=== PATIENT | male | born 1935 | race Caucasian/White ===

== ENCOUNTER 2017-07-02 14:15 | Outpatient (RCR) | payer SELFPAY | END 2017-07-02 23:59 | LOC: PR 14:15 | PROVIDERS: Family Provider Family Medicine; PCP Family Medicine; Visit Provider Family Medicine | DX: Z00.00 Encounter for general adult medical examination without abnormal findings (principal) ==

== ENCOUNTER 2017-07-21 14:15 | Outpatient (RCR) | payer MEDICARE, SELFPAY | END 2017-07-30 23:59 | LOC: PR 14:15 | PROVIDERS: Family Provider Family Medicine; PCP Family Medicine; Visit Provider Family Medicine | DX: Z00.00 Encounter for general adult medical examination without abnormal findings (principal) ==

== ENCOUNTER 2017-07-23 07:10 | Day surgery (SDC) | payer MEDICARE, OTHER, SELFPAY ==
[2017-07-23] VITALS (7 sets, daily range): BP systolic 82–126; BP diastolic 52–65; PULSE 74–100; RESP 16; TEMP 36.4–36.6; O2SAT 95–100; BMI 32.3
--- NOTE | 2017-07-23 08:30 | COLBX_PTH ---
PATIENT: JOSE CHAWLA LOC: EN U#:[id number] AGE/SX: 81/M ROOM: RE07/23/[address]: Dr. Sharath Hay MD : [id number] BED: DIS: 07/23/2017 SPEC #: [id number] RECD: 07/23/17 12:47 STATUS: SHO SHANIQUE #: [id number] LORIN: 07/23/17 08:[address]: Sharath Hay DEPT: SURGICAL PATHOLOGY RECD BY: Diego Caraballo ENTERED: 07/23/17 12:56 SP TYPE: COLON BX OTHR DR: Dr. Kevin Boogie MD Tissues: Ascending colon Procedures: Surgery Specimen Level IV HEADER OPERATION: Colonoscopy with biopsy PRE-OP DIAGNOSIS: History of colon polyps TISSUE SUBMITTED: Ascending colon polyp biopsy MICROSCOPIC DIAGNOSIS Ascending colon polyp, biopsy: Tubular adenoma. SJ:donaldo 07/24/17 MICROSCOPIC DESCRIPTION Slides are reviewed. GROSS DESCRIPTION Received in fixative is one container labeled with the patient's name and designated ascending colon biopsy. The specimen consists of one irregular fragment of light baker soft tissue that measures 0.6 x 0.2 x 0.1 cm. The specimen is totally submitted in one cassette. / AM:donaldo 07/23/17 TC:1 CPT: 38108
--- NOTE | 2017-07-23 08:38 | PCM.OPRPT ---
Problem List (1) Personal history of colonic polyps Status: Acute Report of Operation Date of Procedure: 07/23/17 Pre-Operative Diagnosis: Z 86.010 personal history of colonic polyps Post-Operative Diagnosis: Same Surgery/Procedure Performed:: 10532 colonoscopy with biopsy Type of Anesthesia:: MAC Anesthesiologist: Brendan Aguirre Description of Procedure: Patient was brought into the endoscopy suite placed in the left lateral decubitus position he was given graded anesthesia. Scope was inserted in the rectum and directed through the sigmoid colon, descending colon, transverse colon, ascending colon, to the cecum without difficulty. Operative findings: 1. Cecum: Normal appearance no mass lesions normal ileocecal valve. 2. Ascending colon: Small hyperplastic was identified it was ablated completely with a biopsy forceps rest of the ascending colon was normal. 3. Transverse colon: Normal appearance no mass lesions. 4. Descending colon: Normal appearance no mass lesions. 5. 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 Rectum: Normal appearance no mass lesions retroflexion showed internal hemorrhoids. The scope was withdrawn digital rectal exam was performed showing no masses within the anus and a smooth prostate with no nodules. Patient will need to have another colonoscopy in 3 years - Admit VTE Documentation VTE Present on Admission: No VTE Mechan Device Prophylaxis: None VTE Pharm Prophylaxis ordered?: No Reason prophylaxis not ordered:: Treatment Not Indicated
== END 2017-07-23 09:36 | disposition home or self-care (01) ==
LOC: EN 07:11 → AC 07:12
PROVIDERS: Family Provider Family Medicine; PCP Family Medicine; Visit Provider Surgery
PROC: 0DJD8ZZ Inspection of Lower Intestinal Tract, Via Natural or Artificial Opening Endoscopic (ICD-10-PCS; CPT 45378; principal; 2017-07-23 08:25)
DX: D12.2 Benign neoplasm of ascending colon (principal); D64.9 Anemia, unspecified; J44.9 Chronic obstructive pulmonary disease, unspecified; I10 Essential (primary) hypertension; E78.00 Pure hypercholesterolemia, unspecified; N40.0 Benign prostatic hyperplasia without lower urinary tract symptoms; K21.9 Gastro-esophageal reflux disease without esophagitis; E66.9 Obesity, unspecified; Z79.899 Other long term (current) drug therapy; Z87.891 Personal history of nicotine dependence; Z86.010 Personal history of colon polyps
CPT/HCPCS: 45380; 88305; J7120

== ENCOUNTER 2017-07-31 06:29 | Outpatient (RCR) | payer SELFPAY | END 2017-08-30 23:59 | LOC: PR 06:29 | PROVIDERS: Family Provider Family Medicine; PCP Family Medicine; Visit Provider Family Medicine | DX: Z00.00 Encounter for general adult medical examination without abnormal findings (principal) ==

== ENCOUNTER → 2017-09-23 09:14 | Outpatient (CLI) | payer MEDICARE, OTHER, SELFPAY ==
[2017-09-23 10:31] LABS: Absolute Neutrophil Count 4.2 X10^3/uL (2.0-7.7); Basophil# 0.02 X10^3/uL; Basophil% 0.3 % (0-1); Eosinophil# 0.37 X10^3/uL; Eosinophils% 5.5 % (0-5); Hematocrit 38.8 % (40-54); Hemoglobin 12.6 g/dl (13.0-16.5); Lymphocyte % 22.4 % (19-41); Mean Corp Hgb Conc 32.5 g/gl (32-36); Mean Corpuscular Hgb 29.7 pg (27.0-32.0); Mean Corpuscular Volume 91.5 fL (80-94); Mean Platelet Vol. 12.2 fl (6.2-12.0); Monocyte# 0.65 X10^3/uL; Monocyte% 9.7 % (0-10); Neutrophil # 4.16 X10^3/uL (2.7-7.7); Platelet Count 149 K/mm3 (150-450); RBC Distribution Width CV 13.2 % (11.6-14.6); RBC Distribution Width SD 43.6 fl (35.1-43.9); Red Blood Count 4.24 M/mm3 (4.6-6.2); White Blood Count 6.7 K/mm3 (4.4-11.0)
[2017-09-23 10:44] LABS: POSITIVE COUNT NO; POSITIVE DIFFERENTIAL NO; POSITIVE MORPHOLOGY NO
[2017-09-23 11:17] LABS: AST(SGOT) 19 U/L (15-37); Alanine Aminotransfer ALT/SGPT 15 U/L (16-61); Albumin, Serum 3.3 g/dL (3.2-5.0); Alkaline Phosphatase 125 U/L (45-117); Anion Gap 6 (5-15); BUN 15 mg/dL (7-18); BUN/Creat Ratio 17.8 RATIO (10-20); Calcium,Total 9.2 mg/dL (8.5-10.1); Chloride 108 mmol/L (98-107); Cholesterol 82 mg/dL (200); Creatinine, Serum 0.84 mg/dL (0.70-1.30); EST Glomerular Filtration Rate 93 mL/min (>60); Est Glom Filt Rate - Afr Amer 112 mL/min (>60); Globulin 3.3 g/dL (2.2-4.2); Glucose 82 mg/dL (74-106); High Density Lipoprotein 29 mg/dL; Potassium 3.9 mmol/L (3.5-5.1); Protein, Total 6.6 g/dL (6.4-8.2); Sodium Level 141 mmol/L (136-145); Triglycerides 114 mg/dL; Very Low Density Lipoprotein 23 mg/dL (5-40)
== END ==
PROVIDERS: Family Provider Family Medicine; PCP Family Medicine; Visit Provider Family Medicine
DX: J44.9 Chronic obstructive pulmonary disease, unspecified (principal); E78.00 Pure hypercholesterolemia, unspecified; I10 Essential (primary) hypertension
CPT/HCPCS: 36415; 80053; 80061; 85025

== ENCOUNTER 2017-12-01 06:40 | Outpatient (RCR) | payer MEDICARE, OTHER, SELFPAY | END 2017-12-30 23:59 | LOC: PR 06:40 | PROVIDERS: Family Provider Family Medicine; PCP Family Medicine; Visit Provider Family Medicine | DX: Z00.00 Encounter for general adult medical examination without abnormal findings (principal) ==

== ENCOUNTER 2017-12-31 06:33 | Outpatient (RCR) | payer SELFPAY | END 2018-01-30 23:59 | LOC: PR 06:33 | PROVIDERS: Family Provider Family Medicine; PCP Family Medicine; Visit Provider Family Medicine | DX: Z00.00 Encounter for general adult medical examination without abnormal findings (principal) ==

== ENCOUNTER → 2018-01-29 09:35 | Outpatient (CLI) | payer MEDICARE, OTHER, SELFPAY ==
--- OUTSIDE RECORDS SUMMARY | 2018-01-14 09:46 | XMS RPT_ITS ---
:1935 External Reference #:[id number] Author Organization OHIP Support Name Relationship Address Phone R Unavailable Unavailable Unavailable SCHOOLCRAFT, KRISTOPHER Unavailable [address] + [place] [address] R Unavailable Unavailable Unavailable SCHOOLCRAFT, KRISTOPHER Unavailable [address] + [place] [address] R Unavailable Unavailable Unavailable SCHOOLCRAFT, KRISTOPHER Unavailable [address] + [place] [address] R Unavailable Unavailable Unavailable SCHOOLCRAFT, KRISTOPHER Unavailable [address] + [place] [address] R Unavailable Unavailable Unavailable SCHOOLCRAFT, KRISTOPHER Unavailable [address] + [place] [address] R Unavailable Unavailable Unavailable SCHOOLCRAFT, KRISTOPHER Unavailable [address] + [place] [address] R Unavailable Unavailable Unavailable SCHOOLCRAFT, KRISTOPHER Unavailable [address] + [place] [address] R Unavailable Unavailable Unavailable SCHOOLCRAFT, KRISTOPHER Unavailable [address] + [place] [address] R Unavailable Unavailable Unavailable SCHOOLCRAFT, KRISTOPHER Unavailable [phone] [place] [address] R Unavailable Unavailable Unavailable SCHOOLCRAFT, KRISTOPHER Unavailable [address] + [place] [address] R Unavailable Unavailable Unavailable SCHOOLCRAFT, KRISTOPHER Unavailable [address] + [place] [address] R Unavailable Unavailable Unavailable SCHOOLCRAFT, KRISTOPHER Unavailable [phone] [place] [address] R Unavailable Unavailable Unavailable SCHOOLCRAFT, KRISTOPHER Unavailable [phone] [place] [address] Care Team Providers Name Role Phone Boogie, Kevin Attending Unavailable Boogie, Kevin Primary Care Unavailable Boogie, Kevin Attending Unavailable Boogie, Kevin Primary Care Unavailable Boogie, Kevin Attending Unavailable Boogie, Kevin Primary Care Unavailable Boogie, Kevin Attending Unavailable Boogie, Kevin Primary Care Unavailable Boogie, Kevin Attending Unavailable Boogie, Kevin Primary Care Unavailable Brewster, Sharath Attending Unavailable Boogie, Kevin Referring Unavailable Boogie, Kevin Primary Care Unavailable Brewster, Sharath Attending Unavailable Brewster, Sharath Referring Unavailable Boogie, Kevin Primary Care Unavailable Brewster, Sharath Attending Unavailable Bharti, Sharath Referring Unavailable Boogie, Kevin Primary Care Unavailable Bharti, Sharath Consulting Unavailable Boogie, Kevin Attending Unavailable Boogie, Kevin Primary Care Unavailable Boogie, Kevin Attending Unavailable Boogie, Kevin Primary Care Unavailable Boogie, Kevin Attending Unavailable Boogie, Kevin Primary Care Unavailable Boogie, Kevin Attending Unavailable Boogie, Kevin Primary Care Unavailable Boogie, Kevin Attending Unavailable Boogie, Kevin Primary Care Unavailable PROBLEMS PROBLEMS DATE TYPE CONDITION / CODE ATTENDING STATUS SOURCE 12/31/2017 Unknown Z00.00 - Encounter Kevin Boogie Active [place] for general adult [facility] examination Repository without abnormal findings / Z00.00(ICD-10) 11/14/2017 Unknown J44.9 - Chronic Kevin Boogie Active [place] obstructive [facility] pulmonary disease, Hospital unspecified / Repository J44.9(ICD-10) 09/18/2017 Unknown Z86.010 - Personal Sharath Hay Active [place] history of colonic Community polyps / Hospital Z86.010(ICD-10) Repository 03/27/2017 Unknown ESSENTIAL Kevin Boogie Active [place] (PRIMARY) Community HYPERTENSION / Hospital I10(ICD-10) Repository 03/27/2017 Unknown PURE William Boogieic Active [place] HYPERCHOLESTEROLEM Community [place], UNSPECIFIED / Hospital E78.00(ICD-10) Repository 03/27/2017 Unknown ANEMIA, William Boogieic Active [place] UNSPECIFIED / Community D64.9(ICD-10) Hospital Repository PROCEDURES PROCEDURES No Procedure Records FoundRESULTS RESULTS CBC W/DIFF, AUTOMATED Collected: 09/23/2017 Status: F Source: [place] 9:18 AM [facility] REPOSITORY Order Comment: Order Date: 09/22/17Order Info: [id number] - CBCD TYPE CODE TESTS RESULT OUT OF RANGE REFERENCE UNITS LAB L100.1000 Normal 4.4-11.0 K/mm3 WBC 6.7 LAB L100.1200 Low 4.6-6.2 M/mm3 RBC 4.24 LAB L100.1300 Low 13.0-16.5 g/dl HGB 12.6 LAB L100.1400 Low 40-54 % HCT 38.8 LAB L100.1500 Normal 80-94 fL MCV 91.5 LAB L100.1600 Normal 27.0-32.0 pg MCH 29.7 LAB L100.1700 Normal 32-36 g/gl MCHC 32.5 LAB L100.1810 Normal 11.6-14.6 % RDW 13.2 CV LAB L100.1820 Normal 35.1-43.9 fl RDW 43.6 SD LAB L100.1900 Low 150-450 K/mm3 PLT 149 LAB L100.2000 High 6.2-12.0 fl MPV 12.2 LAB L100.2100 Normal 47-70 % NEUT% 62.0 LAB L100.2200 Normal 19-41 % LY% 22.4 LAB L100.2300 Normal 0-10 % MONO% 9.7 LAB L100.2400 High 0-5 % EO% 5.5 LAB L100.2500 Normal 0-1 % BASO% 0.3 LAB L100.2550 Normal 0.0-0.9 % IM 0.100 GRAN % Result Comment: IG% - Immature Granulocytes (promyelocytes, myelocytes andmetamyelocytes) > 1% indicates that a LEFT SHIFT is Present. LAB L100.2620 Normal 2.0-7.7 X10 3/uL Absolute Neut 4.2 LAB L100.2720 Normal 0.83-4.51 X10 3/ul Absolute Lymph 1.50 Performed By: #### L100.0100, L500.4050, L500.4100 #### [facility] [address] [place], [address] COMPREHENSIVE METABOLIC Collected: 09/23/2017 Status: F Source: [place] 9:[address] [facility] REPOSITORY Order Comment: Order Date: 09/22/17Order Info: [id number] - CMPOrder Info: [id number] - LIPID TYPE CODE TESTS RESULT OUT OF RANGE REFERENCE UNITS LAB L501.0100 Normal 74-106 mg/dL GLU 82 Result Comment: Please note revised GLUCOSE reference range uiqucjeon88/02/2018. LAB L501.1000 Normal 7-18 mg/dL BUN 15 LAB L501.1100 Normal 0.70-1.30 mg/dL CREAT,SERUM 0.84 Result Comment: The validity of the calculated GFR AND GFRAA in patients over70 years has not been determined. Clinical correlation isessential. LAB L501.1110 Normal >60 mL/min EST GFR 93 Result Comment: Non- GFR Calc LAB L501.1115 Normal >60 mL/min EST GFR - 112 AA Result Comment: GFR Calc LAB L501.1300 Normal 10-20 RATIO BUN/CRE 17.8 LAB L501.1500 Normal 6.4-8.2 g/dL T PROT 6.6 LAB L501.1800 Normal 3.2-5.0 g/dL ALB 3.3 LAB L501.1950 Normal 2.2-4.2 g/dL GLOB 3.3 LAB L501.2000 Normal 0.9-2.4 RATIO A/G 1.0 LAB L501.2200 Normal 8.5-10.1 mg/dL CA 9.2 LAB L501.4100 Normal 15-37 U/L AST 19 LAB L501.4305 High 45-117 U/L ALK P 125 LAB L501.4405 Low 16-61 U/L ALT 15 LAB L501.4600 High 0.20-1.00 mg/dL T BILI 1.30 LAB L501.5300 Normal 136-145 mmol/L NA 141 LAB L501.5600 Normal 3.5-5.1 mmol/L K 3.9 LAB L501.5900 High 98-107 mmol/L CL 108 LAB L501.6100 Normal 21.0-32.0 mmol/L CO2 27.0 LAB L501.6200 Normal 5-15 GAP 6 Performed By: #### L100.0100, L500.4050, L500.4100 #### [facility] [address] [place], [address] LIPID PROFILE Collected: 09/23/2017 Status: F Source: [place] 9:[address] [facility] REPOSITORY Order Comment: Order Date: 09/22/17Order Info: [id number] - CMPOrder Info: [id number] - LIPID TYPE CODE TESTS RESULT OUT OF RANGE REFERENCE UNITS LAB L501.4900 Normal 200 mg/dL CHOL 82 Result Comment: <200 mg /dL Desirable 200-240 mg/dL Borderline >240 mg/dL High Risk LAB L501.5000 Normal mg/dL TRIG 114 Result Comment: The drugs N-Acetylcysteine and Metamizole may falselydepress this assay.Serum Triglycerides Reference Interval Normal <150 mg/dL Borderline high 150 - 199 mg/dL High 200 - 499 mg/dL Very High > or = 500 mg/dL LAB L501.6400 Low mg/dL HDL 29 Result Comment: The drugs N-Acetylcysteine and Metamizole may falselydepress this assay. Reference Range HDL <40 mg/dL Low HDL Cholesterol HDL >or= 60 mg/dL High HDL Cholesterol LAB L501.6500 Normal 0-130 mg/dL LDL 30 LAB L501.6600 Normal 5-40 mg/dL VLDL 23 Performed By: #### L100.0100, L500.4050, L500.4100 #### [facility] [address] [facility] [place], [address] OPERATIVE REPORT Observed: 07/23/2017 Status: F Source: [place] 8:[address] [facility] REPOSITORY [facility] [address] [place], [place] [address]Eaenwqhmz Cyufyg52/21/18 0838MR#: [id number] Acct: [id number]: JOSE CHAWLA Rep #: [id number]: 1935 81 From: Sharath Hay MDPCP: Kevin Boogie MD Status: [facility] [place] YLocation: [id number] List(1) Personal history of colonic polypsStatus: AcuteReport of OperationDate of Procedure: 07/23/17Pre-Operative Diagnosis: Z 86.010 personal history of colonic polypsPost-Operative Diagnosis: SameSurgery/Procedure Performed:: 32586 colonoscopy with biopsyType of Anesthesia:: MACAnesthesiologist: Harpreet Aguirreion of Procedure:Patient was brought into the endoscopy suite placed in the left lateral decubitus position hewas given graded anesthesia. Scope was inserted in the rectum and directed through the sigmoidcolon, descending colon, transverse colon, ascending colon, to the cecum without difficulty.Operative findings:1. Cecum: Normal appearance no mass lesions normal ileocecal valve.2. Ascending colon: Small hyperplastic was identified it was ablated completely with a biopsyforceps rest of the ascending colon was normal.3. Transverse colon: Normal appearance no mass lesions.4. Descending colon: Normal appearance no mass lesions.5. Sigmoid colon: Normal appearance no mass lesions scattered diverticular disease wasidentified6. Rectum: Normal appearance no mass lesions retroflexion showed internal hemorrhoids. Thescope was withdrawn digital rectal exam was performed showing no masses within the anus and asmooth prostate with no nodules.Patient will need to have another colonoscopy in 3 years- Admit VTE DocumentationVTE Present on Admission: NoVTE Mechan Device Prophylaxis: NoneVTE Pharm Prophylaxis ordered?: NoReason prophylaxis not ordered:: Treatment Not Bqoyjfnyc70/21/18 0841 <Electronically signed by Sharath Hay MD>Date Sharath Hay MDCC: Sharath Hay MD; Kevin Boogie MD Signed COLON BIOPSY (CHOOSE Observed: 07/23/2017 Status: F Source: [facility]) 8:[address] [facility] REPOSITORY Patient: JOSE CHAWLA : 1935 (82/M) Acct Num: [id number] Phys: Sharath Hay MD Unit Num: [id number] Loc: EN Specimen: [id number] Received: 07/23/17 - 1247 Spec Type: COLON BX TISSUES TISSUES: Ascending colon GROSS DESCRIPTION Received in fixative is one container labeled with the patient's name and designated ascending colon biopsy. The specimen consists of one irregular fragment of light baker soft tissue that measures 0.6 x 0.2 x 0.1 cm. The specimen is totally submitted in one cassette. / AM:rg 07/23/17 TC:1 CPT: 94340 HEADER OPERATION: Colonoscopy with biopsy PRE-OP DIAGNOSIS: History of colon polyps TISSUE SUBMITTED: Ascending colon polyp biopsy MICROSCOPIC DESCRIPTION Slides are reviewed. MICROSCOPIC DIAGNOSIS Ascending colon polyp, biopsy: Tubular adenoma. SJ:donaldo 07/24/17 Signed Gonsalo Dumont 07/24/17 <signature on file> Performed By: #### PCOLBX ####[facility] [address] [place], [place], [address] SURGERY VISIT REPORT Observed: 07/15/2017 Status: F Source: [place] 9:[address] [facility] REPOSITORY [place] [facility] [address] [place] [address] [place] [address] [id number] VISITDate of Service: 07/14/17MR#: [id number] Acct: [id number]: JOSE CHAWLA Rep #: [id number]: 1935 Provider: Sharath Hay MDAge/Sex: 81/M Location: [facility] [place].WSAStatus: SignedIntakeVital Signs07/14/17 Height 6 ft 1 in07/14/17 Weight: 255 lbIntakeVisit Reasons: NEEDS C-SCOPEInterpreter Required: NoIs patient in pain? : NoAllergiesadhesive tape Allergy (Intermediate, Verified 07/14/17 15:19)dermatitisMedicationsatorvastatin 80 mg tablet 80 mg PO QDAY 07/14/17 [ History Confirmed 07/14/17]carvedilol 25 mg tablet 25 mg PO BID 07/14/17 [History Confirmed 07/14/17]clopidogrel 75 mg tablet 150 mg PO QDAY 07/14/17 [History Confirmed 07/14/17]coenzyme Q10 100 mg capsule 100 mg PO QDAY 07/14/17 [History Confirmed 07/14/17]lisinopril 10 mg tablet 10 mg PO QDAY 07/14/17 [History Confirmed 07/14/17]omega-3s 300 dc-izs-myj-other mjiuh6q-axtd oil 1,000 mg capsule cap PO .daily ea 07/14/17[History Confirmed 07/14/17]ranitidine 300 mg capsule 300 mg PO QHS 07/14/17 [History Confirmed 07/14/17]triamcinolone acetonide 0.1 % topical cream 1 applic TOPICAL QDAY 07/14/17 [History Wwpsvwnys49/12/18]PFSHMedical History Abnormality of gait (Acute) Acid reflux (Acute)Allergic rhinitis (Acute)Anemia (Acute)Blood clots in stool ( Acute)COPD (chronic obstructive pulmonary disease) (Acute)CVD (cardiovascular disease) (Acute)Colon cancer (Acute)Hypercholesterolemia (Acute)Obesity (Acute)Prostatic hypertrophy (Acute)Hypertension (Chronic)Surgical History History of colectomy (Acute)Social HistorySmoking Status: Former smoker quit date: 06/04/96 pack-years: 40alcohol intake: neversubstance use type: does not useHPIHPIHPI: JOSE CHAWLA, is a 81 M who presents to the office today for colonoscopy. Patienthad his last colonoscopy on 05/05/2013. At that time he was noted to have a tubular adenoma ofhis transverse colon as well as some hyperplastic polyps in the cecum. He has had no furthercolonoscopies since then at that same time he also had an upper scope which was H. pylorinegative. It did show some erythema and the GE junction hiatal hernia normal mucosa found inthe cardia erythematous mucosa in the prepyloric region of the stomach. Patient has had noproblems with his bowel or bladder. He is not complaining ofROSGeneralGeneral: Yes colon cancer;no weight change, appetite, fatigue, breast cancer or weaknessHEENTHEENT: Yes eye surgery;no difficulty swallowing, eye injury, swollen glands or hoarsenessEndoEndocrine: No thyroid disease, diabetes mellitus, thyroid cancer, Hair loss, heat intoleranceor cold intoleranceSkinSkin: No rash or changing molesBreastBreast: No left breast lump, right breast lump, nipple discharge, breast pain, abnormalmammogram, abnormal US or breast enlargementMuscMusculoskeletal: No back problems, arthritis, rheumatoid arthritis, gout or joint painCardioCardiovascular: Yes high blood pressure;no murmur, pacemaker, heart disease, atrial fibrillation, heart attack, heart stent,palpitations, shortness of breat with exertion or chest painPsychPsychiatric: No depression, anxiety or hearing voicesRespRespiratory: No shortness of breath, No sleep apnea, No cough, Yes COPD, No asthma, Noemphysema, No wheezingGastroGastrointestinal: No abdominal pain, No nausea or vomiting, No diarrhea, No constipation, Noblood in stool, Yes acid reflux, No hemorrhoids, No ulcers, No gallbladder problem, Noblack,tarry stoolsHemaHematologic: Yes blood thinners, No blood disorders, No bleeding, No anemia, No blood clotsNeuroNeurologic: No system reviewed and no additional complaints, except as docu, No as per HPI, Noabnormal walking, No abnormal hearing, No abnormal movements, No abnormal speech, No behavioralchanges, No burning sensations, No confusion, No seizure-like activity, No unsteadiness, Nodizziness, No localized weakness, No frequent falls, No headache(s), No lack of coordination,No loss of vision, No memory loss, No numbness, No other visual disturbances, No radiatingpain, No restless legs, No sensory deficit, No fainting, No tingling, No tremor(s), Noweakness, No otherExamConstGeneral: well developed, no acute distress, well hydratedOrientation: oriented to person, oriented to place, oriented to timeHENMTHead: normocephalic , atraumaticEars: external ears normalMouth: moist mucous membranesEyesSclera: sclerae normalPupils: normal by confrontationNeckNeck: no lymphadenopathy notedNeck mass: NoThyroid: symmetrical, thyroid normalChestChest palpation AND inspection: normal inspection of the chestBreast Palpation: No nipple dischargeRespEffort AND Inspection: normal respiratory effortAuscultation: clear to auscultation bilaterallyPercussion: percussion normalCardioRate: regular rateRhythm: regular rhythmHeart Sounds: no murmursGIPalpation: soft, no masses, no hepatosplenomegaly, nontenderRectal Exam: otherOther: Rectal exam deferred.ExtremGeneral: no clubbing, cyanosis or edema, normal to inspectionAssessment AND PlanProblems1. History of colon polyps Z86.010PlanI have discussed the above with the patient.I have offered the patient colonoscopy for evaluation.I have explained the risks/benefits of the procedure and described the procedure. I havediscussed the risks with the patient, including but not limited to: infection, bleeding,perforation of the GI tract requiring emergency surgery, inability to complete the procedure,injury to any internal organs, complications of anesthesia, etc. - the patient understands andagrees to proceed.I have answered all the patient's questions to the patient 's satisfaction and the patient hasno further questions.The patient has been given instructions for the colon cleansing preparation.CodingLevel of Care CodeOff vis,new,level 3DiagnosesHistory of colon polyps Z86.5483207/15/17 0925 <Electronically signed by Sharath Hay MD>Date Sharath Hay MDCosigner Signature: Date (if applicable)CC: Kevin Boogie MD CBC W/DIFF, AUTOMATED Collected: 03/24/2017 Status: F Source: [place] 8:[address] [facility] REPOSITORY Order Comment: Order Date: 02/06/17Order Info: [id number] - CBCD TYPE CODE TESTS RESULT OUT OF RANGE REFERENCE UNITS LAB L100.1000 Normal 4.4-11.0 K/mm3 WBC 6.9 LAB L100.1200 Low 4.6-6.2 M/mm3 RBC 4.21 LAB L100.1300 Low 13.0-16.5 g/dl HGB 12.8 LAB L100.1400 Low 40-54 % HCT 38.7 LAB L100.1500 Normal 80-94 fL MCV 91.9 LAB L100.1600 Normal 27.0-32.0 pg MCH 30.4 LAB L100.1700 Normal 32-36 g/gl MCHC 33.1 LAB L100.1810 Normal 11.6-14.6 % RDW 13.2 CV LAB L100.1820 Normal 35.1-43.9 fl RDW 43.3 SD LAB L100.1900 Low 150-450 K/mm3 PLT 134 LAB L100.2000 High 6.2-12.0 fl MPV 12.8 LAB L100.2100 Normal 47-70 % NEUT% 60.9 LAB L100.2200 Normal 19-41 % LY% 22.8 LAB L100.2300 Normal 0-10 % MONO% 9.2 LAB L100.2400 High 0-5 % EO% 6.3 LAB L100.2500 Normal 0-1 % BASO% 0.7 LAB L100.2550 Normal 0.0-0.9 % IM 0.100 GRAN % Result Comment: IG% - Immature Granulocytes (promyelocytes, myelocytes andmetamyelocytes) > 1% indicates that a LEFT SHIFT is Present. LAB L100.2620 Normal 2.0-7.7 X10 3/uL Absolute Neut 4.2 LAB L100.2720 Normal 0.83-4.51 X10 3/ul Absolute Lymph 1.57 Performed By: #### L100.0100, L500.4050, L500.4100, L501.9520 ####[facility] [address] [place], [address] COMPREHENSIVE METABOLIC Collected: 03/24/2017 Status: F Source: [facility] 8:[address] [facility] REPOSITORY Order Comment: Order Date: 02/06/17Order Info: [id number] - CMPOrder Info: [id number] - LIPIDOrder Info: [id number] - TSH TYPE CODE TESTS RESULT OUT OF RANGE REFERENCE UNITS LAB L501.0100 Normal 70-110 mg/dL GLU 87 LAB L501.1000 Normal 7-18 mg/dL BUN 12 LAB L501.1100 Normal 0.70-1.30 mg/dL 0.76 CREAT,SERUM Result Comment: The validity of the calculated GFR AND GFRAA in patients over70 years has not been determined. Clinical correlation isessential. LAB L501.1110 Normal >60 mL/min EST GFR 104 Result Comment: Non- GFR Calc LAB L501.1115 Normal >60 mL/min EST GFR - 126 AA Result Comment: GFR Calc LAB L501.1300 Normal 10-20 RATIO BUN/CRE 15.7 LAB L501.1500 Normal 6.4-8.2 g/dL T PROT 6.6 LAB L501.1800 Low 3.4-5.0 g/dL ALB 3.1 Result Comment: Please note revised Albumin AND Globulin reference rangeeffective 2017. LAB L501.1950 Normal 2.2-4.2 g/dL GLOB 3.5 LAB L501.2000 Normal 0.9-2.4 RATIO A/G 0.9 LAB L501.2200 Normal 8.5-10.1 mg/dL CA 9.0 LAB L501.4100 Normal 15-37 U/L AST 18 LAB L501.4305 High 45-117 U/L ALK P 118 LAB L501.4405 Normal 12-78 U/L ALT 20 LAB L501.4600 High 0.20-1.00 mg/dL T BILI 1.20 LAB L501.5300 Normal 136-145 mmol/L NA 142 LAB L501.5600 Normal 3.5-5.1 mmol/L K 4.3 LAB L501.5900 High 98-107 mmol/L CL 109 LAB L501.6100 Normal 21.0-32.0 mmol/L CO2 27.0 LAB L501.6200 Normal 5-15 GAP 6 Performed By: #### L100.0100, L500.4050, L500.4100, L501.9520 ####[facility] [address] [place], [place], [address] LIPID PROFILE Collected: 03/24/2017 Status: F Source: [place] 8:[address] [facility] REPOSITORY Order Comment: Order Date: 02/06/17Order Info: [id number] - CMPOrder Info: [id number] - LIPIDOrder Info: [id number] - TSH TYPE CODE TESTS RESULT OUT OF RANGE REFERENCE UNITS LAB L501.4900 Normal 200 mg/dL CHOL 90 Result Comment: <200 mg /dL Desirable 200-240 mg/dL Borderline >240 mg/dL High Risk LAB L501.5000 Normal mg/dL TRIG 114 Result Comment: The drugs N-Acetylcysteine and Metamizole may falselydepress this assay.Serum Triglycerides Reference Interval Normal <150 mg/dL Borderline high 150 - 199 mg/dL High 200 - 499 mg/dL Very High > or = 500 mg/dL LAB L501.6400 Low mg/dL HDL 34 Result Comment: The drugs N-Acetylcysteine and Metamizole may falselydepress this assay. Reference Range HDL <40 mg/dL Low HDL Cholesterol HDL >or= 60 mg/dL High HDL Cholesterol LAB L501.6500 Normal 0-130 mg/dL LDL 33 LAB L501.6600 Normal 5-40 mg/dL VLDL 23 Performed By: #### L100.0100, L500.4050, L500.4100, L501.9520 ####[facility] [address] [place], [address] THYROID STIM HORMONE Collected: 03/24/2017 Status: F Source: [place] ([facility]) 8:[address] [facility] REPOSITORY Order Comment: Order Date: 02/06/17Order Info: [id number] - CMPOrder Info: [id number] - LIPIDOrder Info: [id number] - TSH TYPE CODE TESTS RESULT OUT OF RANGE REFERENCE UNITS LAB L501.9520 High 0.358-3.74 uIU/mL TSH 5.04 Performed By: #### L100.0100, L500.4050, L500.4100, L501.9520 ####[facility] [address] [place], [address] ALLERGIES ALLERGIES DATE TYPE / CODE NAME / CODE REACTION SEVERITY SOURCE 07/21/2017 Drug adhesive dermatitis [place] Allergy/416 tape/[id number] [facility] [id number][facility] Repository ENCOUNTERS ENCOUNTERS ADMIT/DISCHARGE ACCOUNT ADMITTING ENCOUNTER LOCATION SOURCE NUMBER CLASS 01/14/2018 [id number] Ambulatory [address] ing:MFPLAB Repository 12/31/[id number] [place] Repository 12/01/2017/ [id number] [facility] 8 4 [facility] ing:[place] Repository 09/23/2017 [id number] Ambulatory [place] 1 [facility] ing:MFPLAB Repository 07/31/2017/ [id number] Ambulatory [place] 8 2 [facility] ing:[place] Repository 07/23/2017/ [id number] Ambulatory [place] 8 8 [facility] ing:[place] Repository 07/23/2017 [id number] Ambulatory BMSBuilding:B [place] 0 MS.[facility] Repository 07/21/2017/ [id number] Ambulatory [place] 8 4 [facility] ing:[place] Repository 07/14/2017/ [id number] Ambulatory BMSBuilding:B [place] 8 5 [facility] Repository 07/02/2017/ [id number] Ambulatory [place] 8 7 [facility] ing:[place] Repository 06/12/2017 [id number] Ambulatory [place] 6 [facility] ing:[place] Repository 05/30/2017/ [id number] Ambulatory [place] 7 3 [facility] ing:[place] Repository 03/24/2017 [id number] Ambulatory [place] 9 [facility] ing:MFPLAB Repository PAYERS PAYERS ENCOUNTER GUARANTOR PAYER SUBSCRIBER SOURCE 01/14/2018 JOSE Primary JOSE [place] [id number] Insurance:CIGNAPolicy SCHOOLCRAFTDOB: Community [place]: [id number] [id number] Repository [address]Cdh: 330) Date:4427-18-08[phone] ([facility] [id number], [place] [address]CK: 01/14/2018 Secondary JOSE [place] Insurance:MEDICARE SCHOOLCRAFTDOB: Community PART A [facility] [id number] Hospital Number: Repository [id number] Date:2018-01-14 01/14/2018 Tertiary NOT GIVENUNK [place] Insurance:SELF PAY [facility] Number: Effective Repository Date:2018-01-14 12/31/2017 JOSE Primary NOT GIVENUNK [place] [id number] Insurance:SELF PAY [place] Number: Effective Repository [id number]: ([phone]) Date:2017-12-31 [id number] () 12/01/2017 JOSE Primary JOSE [place] [id number] Insurance:MEDICARE SCHOOLCRAFTDOB: Community CONCORD PART A [id number] [place] Number[facility] Repository [address]Hfr: 330 [id number] [phone] (HP) Date:2017-05-19 12/01/2017 Secondary [place]SE [place] Insurance:CIGNAPolicy SCHOOLCRAFTDOB: Community Number: [id number] [id number] Repository Date:0594-08-74[address]CCONV[place]G, [place] [address]HM: 12/01/2017 Tertiary NOT GIVENUNK [place] Insurance:SELF PAY [facility] Number: Effective Repository Date:2017-08-31 09/23/2017 JOSE Primary JOSE [place] [id number] Insurance:MEDICARE SCHOOLCRAFTDOB: Community CONCORD PART A [facility] [id number] [place] Number: Repository [id number]: 330 [id number] [phone] () Date:2017-09-23 09/23/2017 Secondary JOSE [place] Insurance:CIGNAPolicy SCHOOLCRAFTDOB: Community Number: [id number] [id number] Repository Date:3274-96-99[address]NOMCVZOGDFP, [place] [address]QF: 09/23/2017 Tertiary NOT GIVENUNK [place] Insurance:SELF PAY [facility] Number: Effective Repository Date:2017-09-23 07/31/2017 JOSE Primary NOT GIVENUNK [place] [id number] Insurance:SELF PAY [place] Number: Effective Repository [id number]: ([phone]) Date:2017-07-31 [phone] (HP) 07/23/2017 JOSE Primary JOSE [place] [id number] Insurance:MEDICARE SCHOOLCRAFTDOB: Community CONCORD PART A [facility] [id number] [address]Wuw: 330 [id number] [phone] () Date:2017-07-14 07/23/2017 Secondary JOSE [place] Insurance:CIGNAPolicy SCHOOLCRAFTDOB: Community Number: [id number] Hospital [id number] Repository Date:2162-18-65[address]WCJAJEDTS, [place] [address]WB: 07/23/2017 Tertiary NOT GIVENUNK [place] Insurance:SELF PAY [facility] Number[facility] Effective Repository Date:2017-07-14 07/23/2017 JOSE Primary JOSE [place] [id number] Insurance:MEDICARE SCHOOLCRAFTDOB: Community CONCORD PART A [facility] [id number] [address]Zwo: 330 [id number] [phone] () Date:2017-07-14 07/23/2017 Secondary JOSE [place] Insurance:CIGNAPolicy SCHOOLCRAFTDOB: Community Number: [id number] [facility] [id number] Repository Date:5720-30-02[address]UBZQVOKHY[address], [place] [address]VB: 07/23/2017 Tertiary NOT GIVENUNK [place] Insurance:SELF PAY [facility] Number: Effective Repository Date:2017-07-23 07/21/2017 JOSE Primary JOSE [place] [id number] Insurance:MEDICARE SCHOOLCRAFTDOB: Community CONCORD PART A [facility] [id number] Number[place] Repository [id number]: 330 [id number] [phone] () Date:2017-05-19 07/21/2017 Secondary NOT GIVENUNK [place] Insurance:SELF PAY [facility] Number: Effective Repository Date:2017-07-03 07/14/2017 JOSE Primary JOSE [place] [id number] Insurance:MEDICARE SCHOOLCRAFTDOB: Community CONCORD PART A BPolicy [id number]ository [phone]: (330) [id number] () Date:2017-07-04 07/14/2017 Secondary JOSE [place] Insurance:CIGNAPolicy SCHOOLCRAFTDOB: Community Number: [id number] Hospital [id number] Repository Date:3456-66-28[address]DFCAXAMDQMK, [place] [address]XT: 07/14/2017 Tertiary NOT GIVENUNK [place] Insurance:SELF PAY [facility] Number: Effective Repository Date:2017-07-04 07/02/2017 [place] Primary NOT GIVENUNK [place] [id number] Insurance:SELF PAY [place] Number: Effective Repository [id number]: (330) Date:2017-05-1905 () 06/12/2017 Jose Primary NOT GIVENUNK [place] [id number] Insurance:SELF PAY [place] Number: Effective Repository [id number]: (330) Date:2017-06-02 [phone] () 05/30/2017 [place] Primary NOT GIVENUNK [place] [id number] Insurance:SELF [place] Number: Effective Repository [id number]: (330) Date:2017-05-1250 () 03/24/2017 JOSE Primary JOSE [place] [id number] Insurance:MEDICARE SCHOOLCRAFTDOB: Community CONCORD PART A olic [id number][place] Number[place] Repository [id number]: ([phone] [id number] [phone] () Date: 03/24/2017 Secondary JOSE [place] Insurance:CIGNAPolicy SCHOOLCRAFTDOB: Community Number: [id number] Hospital [id number] Repository Date:[address]IVIUNUGIYB, [place] [address]DH:
[2018-01-29 10:20] LABS: Absolute Lymphocyte Count 1.27 X10^3/ul (0.83-4.51); Absolute Neutrophil Count 4.2 X10^3/uL (2.0-7.7); Basophil# 0.03 X10^3/uL; Basophil% 0.5 % (0-1); Eosinophil# 0.36 X10^3/uL; Eosinophils% 5.7 % (0-5); Hematocrit 36.9 % (40-54); Immature Platelet Fraction 6.9 % (1.0-7.9); Lymphocyte # 1.27 X10^3/ul (4.0); Lymphocyte % 20.1 % (19-41); Mean Corp Hgb Conc 32.5 g/gl (32-36); Mean Corpuscular Hgb 29.8 pg (27.0-32.0); Mean Corpuscular Volume 91.6 fL (80-94); Mean Platelet Vol. 11.8 fl (6.2-12.0); Monocyte# 0.45 X10^3/uL; Monocyte% 7.1 % (0-10); Neutrophil % 66.4 % (47-70); Platelet Count 148 K/mm3 (150-450); RBC Distribution Width CV 13.4 % (11.6-14.6); RBC Distribution Width SD 44.7 fl (35.1-43.9); RET-HE 31.7 pg (30-35); Red Blood Count 4.03 M/mm3 (4.6-6.2); White Blood Count 6.3 K/mm3 (4.4-11.0)
[2018-01-29 10:28] LABS: POSITIVE COUNT NO; POSITIVE DIFFERENTIAL NO; POSITIVE MORPHOLOGY NO
[2018-01-29 11:15] LABS: Ferritin 29 ng/mL (26-388); Iron Binding Capacity,Total 257 ug/dL (250-450)
[2018-01-30 09:02] LABS: Vitamin B12 150 pg/mL (211-911)
== END ==
PROVIDERS: Family Provider Family Medicine; PCP Family Medicine; Visit Provider Family Medicine
DX: D64.9 Anemia, unspecified (principal)
CPT/HCPCS: 36415; 82607; 82728; 82746; 83550; 85025; 85045

== ENCOUNTER → 2018-05-07 19:57 | Outpatient (CLI) | payer MEDICARE, OTHER, SELFPAY | PROVIDERS: Family Provider Family Medicine; PCP Family Medicine; Referring Provider Family Medicine; Visit Provider Family Medicine | DX: N30.00 Acute cystitis without hematuria (principal) | CPT/HCPCS: 87086; 87088 ==

== ENCOUNTER → 2018-07-13 14:45 | Outpatient (CLI) | payer MEDICARE, OTHER, SELFPAY ==
[2018-07-13 14:51] LABS: Bacteria 0 SEEN /hpf (None Seen); Mucous, Urine 0 SEEN /hpf (<or=2+); Red Blood Cells-Urine 0 SEEN /hpf (0-5); Squamous Epithelial Cells - UA 0 SEEN /hpf (0-5); White Blood Cells 0 SEEN /hpf (0-5)
[2018-07-13 17:40] LABS: Absolute Lymphocyte Count 1.54 X10^3/ul (0.83-4.51); Absolute Neutrophil Count 4.9 X10^3/uL (2.0-7.7); Basophil# 0.04 X10^3/uL; Basophil% 0.5 % (0-1); Eosinophil# 0.39 X10^3/uL; Eosinophils% 5.2 % (0-5); Hematocrit 36.4 % (40-54); Hemoglobin 11.4 g/dl (13.0-16.5); Lymphocyte # 1.54 X10^3/ul (4.0); Lymphocyte % 20.4 % (19-41); Mean Corp Hgb Conc 31.3 g/gl (32-36); Mean Corpuscular Hgb 28.4 pg (27.0-32.0); Mean Corpuscular Volume 90.8 fL (80-94); Mean Platelet Vol. 12.6 fl (6.2-12.0); Monocyte# 0.63 X10^3/uL; Monocyte% 8.3 % (0-10); Neutrophil # 4.94 X10^3/uL (2.7-7.7); Neutrophil % 65.5 % (47-70); Platelet Count 150 K/mm3 (150-450); RBC Distribution Width CV 13.5 % (11.6-14.6); Red Blood Count 4.01 M/mm3 (4.6-6.2); White Blood Count 7.6 K/mm3 (4.4-11.0)
[2018-07-13 17:41] LABS: POSITIVE COUNT NO; POSITIVE DIFFERENTIAL NO; POSITIVE MORPHOLOGY NO
[2018-07-13 18:01] LABS: Vitamin B12 512 pg/mL (211-911)
[2018-07-13 18:06] LABS: AST(SGOT) 20 U/L (15-37); Alanine Aminotransfer ALT/SGPT 20 U/L (16-61); Albumin, Serum 3.5 g/dL (3.2-5.0); Alkaline Phosphatase 103 U/L (45-117); Anion Gap 8 (5-15); BUN 14 mg/dL (7-18); BUN/Creat Ratio 12.1 RATIO (10-20); Chloride 109 mmol/L (98-107); Cholesterol 99 mg/dL (200); Creatinine, Serum 1.16 mg/dL (0.70-1.30); EST Glomerular Filtration Rate 64 mL/min (>60); Est Glom Filt Rate - Afr Amer 77 mL/min (>60); Globulin 3.6 g/dL (2.2-4.2); Glucose 83 mg/dL (74-106); High Density Lipoprotein 30 mg/dL; PSA,Total- Diagnostic 0.24 ng/mL (0.0-4.0); Potassium 3.8 mmol/L (3.5-5.1); Protein, Total 7.1 g/dL (6.4-8.2); Sodium Level 145 mmol/L (136-145); Triglycerides 148 mg/dL; Very Low Density Lipoprotein 30 mg/dL (5-40)
[2018-07-13 18:48] LABS: Color, Urine Yellow (Yellow); Glucose, Dipstick Normal (Normal); Ketone-Dipstick Negative (Negative); Leukocyte Esterase-Dipstick Negative /ul (Negative); Nitrite-Dipstick Negative (Negative); Occult Blood-Urine Negative /ul (Negative); Protein-Dipstick Negative (Negative); Urine Bilirubin Dipstick Negative (Negative); Urine Clarity Clear (Clear); Urine Urobilinogen Normal (Normal); Urine pH 6.5 (5.0 - 8.0)
[2018-07-13 19:11] LABS: Microalbumin,Random Urine 16.3 mg/L (NO RANGE EST.); Microalbumin:Creatinine Ratio 23.1 mg/g CRE (<30 mg/g CRE)
== END ==
PROVIDERS: Family Provider Family Medicine; PCP Family Medicine; Visit Provider Family Medicine
DX: Z00.00 Encounter for general adult medical examination without abnormal findings (principal); I10 Essential (primary) hypertension; E53.8 Deficiency of other specified B group vitamins; D72.819 Decreased white blood cell count, unspecified; R32 Unspecified urinary incontinence
CPT/HCPCS: 36415; 80053; 80061; 81001; 82043; 82570; 82607; 82746; 84153; 85025; 87086

== ENCOUNTER → 2018-09-04 13:46 | Outpatient (CLI) | payer MEDICARE, OTHER, SELFPAY | PROVIDERS: Family Provider Family Medicine; PCP Family Medicine; Referring Provider Family Medicine; Visit Provider Family Medicine | DX: R32 Unspecified urinary incontinence (principal) | CPT/HCPCS: 87086; 87088 ==

== ENCOUNTER → 2018-10-13 16:57 | Outpatient (CLI) | payer MEDICARE, OTHER, SELFPAY | PROVIDERS: Family Provider Family Medicine; PCP Family Medicine; Referring Provider Urology; Visit Provider Urology | DX: R33.9 Retention of urine, unspecified (principal) | CPT/HCPCS: 87086 ==

== ENCOUNTER → 2018-11-04 13:00 | Outpatient (CLI) | payer MEDICARE, OTHER, SELFPAY ==
[2018-11-04 12:53] VITALS: BP 134/86; PULSE 97; RESP 18; TEMP 36.4; O2SAT 98; BMI 32.5
--- NOTE | 2018-11-04 13:18 | SDCEKG_ITS ---
Test Reason : Blood Pressure : / mmHG Vent. Rate : 108 BPM Atrial Rate : 159 BPM P-R Int : 000 ms QRS Dur : 086 ms QT Int : 338 ms P-R-T Axes : 000 -14 103 degrees QTc Int : 452 ms Atrial fibrillation with rapid ventricular response Moderate voltage criteria for LVH, may be normal variant Nonspecific T wave abnormality Abnormal ECG Confirmed by TONJA MIJARES, FIFI ([id number]), slot editor SHERIE ROJO ([id number]) on 11/06/2018 6:43:12 AM Referred By: Eligio Garcia Confirmed By:FIFI EVANGELISTA MD
[2018-11-04 13:57] LABS: Hematocrit 28.9 % (40-54); Hemoglobin 9.4 g/dl (13.0-16.5); Mean Corp Hgb Conc 32.5 g/gl (32-36); Mean Corpuscular Hgb 28.7 pg (27.0-32.0); Mean Corpuscular Volume 88.1 fL (80-94); Mean Platelet Vol. 10.7 fl (6.2-12.0); Platelet Count 177 K/mm3 (150-450); RBC Distribution Width CV 14.5 % (11.6-14.6); RBC Distribution Width SD 46.7 fl (35.1-43.9); Red Blood Count 3.28 M/mm3 (4.6-6.2)
[2018-11-04 14:07] LABS: Scan Indicated on CBC? Y/N NO
[2018-11-04 14:24] LABS: Anion Gap 4 (5-15); BUN 23 mg/dL (7-18); BUN/Creat Ratio 14.3 RATIO (10-20); Calcium,Total 8.7 mg/dL (8.5-10.1); Chloride 111 mmol/L (98-107); Creatinine, Serum 1.61 mg/dL (0.70-1.30); EST Glomerular Filtration Rate 44 mL/min (>60); Est Glom Filt Rate - Afr Amer 53 mL/min (>60); Estimated Creatinine Clearance 38.16 ml/min; Glucose 92 mg/dL (74-106); Potassium 3.6 mmol/L (3.5-5.1); Sodium Level 141 mmol/L (136-145)
[2018-11-05 17:24] LABS: Magnesium 1.8 mg/dL (1.6-2.6)
== END ==
PROVIDERS: Anesthesiology; Family Provider Family Medicine; PCP Family Medicine; Referring Provider Urology; Visit Provider Urology
DX: Z01.812 Encounter for preprocedural laboratory examination (principal); I48.91 Unspecified atrial fibrillation
CPT/HCPCS: 80048; 83735; 84443; 85027; 93005

== ENCOUNTER → 2018-11-07 06:59 | Outpatient (CLI) | payer MEDICARE, OTHER, SELFPAY ==
[2018-11-06 09:30] VITALS: BMI 31.5
[2018-11-07 08:44] LABS: AST(SGOT) 13 U/L (15-37); Alanine Aminotransfer ALT/SGPT 10 U/L (16-61); Albumin, Serum 3.1 g/dL (3.2-5.0); Alkaline Phosphatase 103 U/L (45-117); Cholesterol 81 mg/dL (200); High Density Lipoprotein 27 mg/dL; Protein, Total 7.1 g/dL (6.4-8.2); T4 Total, Thyroxin 11.3 ug/dL (4.5-12.1); Thyroid Stim Hormone (TSH) 6.15 uIU/mL (0.358-3.74); Triglycerides 113 mg/dL; Very Low Density Lipoprotein 23 mg/dL (5-40)
== END ==
PROVIDERS: Internal Medicine Cardiovascular Disease; Family Provider Family Medicine; PCP Family Medicine; Referring Provider Radiology Diagnostic Radiology; Visit Provider Radiology Diagnostic Radiology
DX: Z01.810 Encounter for preprocedural cardiovascular examination (principal); E78.5 Hyperlipidemia, unspecified; I48.91 Unspecified atrial fibrillation
CPT/HCPCS: 36415; 80061; 80076; 84436; 84443

== ENCOUNTER → 2018-11-13 12:31 | Outpatient (CLI) | payer MEDICARE, OTHER, SELFPAY ==
[2018-11-06 09:30] VITALS: BMI 31.5
--- NOTE | 2018-11-13 12:33 | ECHOCS_ITS ---
Reason For Study: New onset AFib Procedure This was a 2D Doppler, Color Flow transthoracic echocardiogram. The study was technically difficult. Contrast injection was performed. Exam performed in department. Left Ventricle Normal size and thickness. The estimated ejection fraction is 60 %. No regional wall motion abnormalities noted. Right Ventricle Normal size and thickness. Normal systolic function. Atria The left atrium is severely enlarged. Normal right atrium. Normal atrial septum. Mitral Valve The mitral valve is structurally normal. No prolapse or stenosis seen. Trivial mitral valve insufficiency. Tricuspid Valve Normal tricuspid valve. Trivial tricuspid valve insufficiency. Unable to estimate RV systolic pressure/pulmonary artery pressure due to technically difficult study. Aortic Valve Trisinus/trileaflet aortic valve. Moderate focal aortic valve calcification. Possible immobile non coronary cusp. Mild aortic stenosis. Trivial aortic valve insufficiency. Pulmonic Valve Normal pulmonic valve. Great Vessels Normal aortic root. Normal arch. Normal inferior vena cava. Inferior vena cava collapse with sniff. Pericardium/Pleural No pericardial effusion. Medication 22 gauge I.V. with prn adaptor inserted into right arm. Diluted definity 2ml given slow IV push to enhance endocardial definition. MMode/2D Measurements & Calculations LVIDd: 3.9 cm IVSd: 1.5 cm LVOT diam: 2.0 cm LVIDs: 2.7 cm LVPWd: 1.2 cm FS: 31.2 % LVOT area: 3.3 cm2 LAV(MOD-bp): 99.9 ml LA A4 area: 30.5 cm2 RA A4 area: 17.4 cm2 LAV(MOD-bp) Indexed: 43.4 ml/m2 LAV(MOD-sp2): 86.1 ml LAV(MOD-sp4): 113.1 ml Doppler Measurements & Calculations MV E max scott: 133.8 cm/sec Ao V2 max: 165.3 cm/sec LV V1 max: 75.2 cm/sec Ao max P.9 mmHg LV V1 max P.3 mmHg Ao V2 mean: 100.4 cm/sec LV V1 mean P.0 mmHg Ao mean P.8 mmHg LV V1 mean: 46.5 cm/sec Ao V2 VTI: 30.8 cm LV V1 VTI: 13.3 cm ROBBIN(I,D): 1.4 cm2 ROBBIN(V,D): 1.5 cm2 MR max scott: 553.1 cm/sec SV(LVOT): 43.5 ml MR max P.4 mmHg MR mean scott: 423.1 cm/sec MR mean P.7 mmHg MR VTI: 176.4 cm Interpretation Summary The estimated ejection fraction is 60 %. The left atrium is severely enlarged. Trivial mitral valve insufficiency. Unable to estimate RV systolic pressure/pulmonary artery pressure due to technically difficult study. Possible immobile non coronary cusp. Trivial aortic valve insufficiency. Compared to echo report dated 03/14/2008, LV function has remained the same. Mild aortic stenosis. Pt appears to be in atrial fibrillation. The study was technically difficult. Contrast injection was performed. Ordering Physician: Sharath Ruiz Referring Physician: Kevin Boogie Performed By: Adam Landry RCS
== END ==
PROVIDERS: Family Provider Family Medicine; PCP Family Medicine; Referring Provider Internal Medicine Cardiovascular Disease; Visit Provider Internal Medicine Cardiovascular Disease
DX: Z01.810 Encounter for preprocedural cardiovascular examination (principal); I48.91 Unspecified atrial fibrillation; I10 Essential (primary) hypertension; E78.5 Hyperlipidemia, unspecified
CPT/HCPCS: 93306; Q9957; A4216; C8929

== ENCOUNTER → 2018-11-19 09:03 | Outpatient (CLI) | payer MEDICARE, OTHER, SELFPAY ==
[2018-11-06 09:30] VITALS: BMI 31.5
--- NOTE | 2018-11-19 09:04 | STEWCON_ITS ---
Reason For Study: Atrial Fibrillation; Pre-Op Stress Results Protocol: Modified Wilner Protocol Maximum Predicted HR: 137 bpm Target HR: 116 bpm % Maximum Predicted HR: 126 % Heart Stage Duration Rate BP Comment (mm:ss) (bpm) Baseline 126 142/80No Chest Pain; Diluted Definity 3 ML Given Modified Wilner Protocol Stage 0 3:00 166 164/78No Chest Pain; Mild Dyspnea Modified Wilner Protocol No Chest Pain; Moderate Dyspnea; Audible Stage 1/2 2:00 173 200/78Expiratory Wheezes Recovery 121 134/78No Chest Pain; No Wheezes Stress Duration: 5:00 mm:ss Maximum Stress HR: 173 bpm METS: 3 Baseline Echocardiogram Findings The estimated ejection fraction is 65 %. Stress Echo Wall motion Data Resting WM Intermediate WM Stress WM Resting Wall Motion Wall Motion Stress No regional wall motion Mid-Anterior : Mildly abnormalities noted. hypokinetic. Mid-Inferior: Mildly hypokinetic. EKG Data Atrial fibrillation with controlled ventricular response. The stress ECG displays diffuse abnormal ST segments. The maximum heart rate attained was 187 beats per minute. This was 136% of maximum predicted heart rate. No clinical angina was noted. Interpretation Summary The estimated ejection fraction is 65 %. Mid-Anterior : Mildly hypokinetic Mid-Inferior: Mildly hypokinetic Abnormal, adequate, modified Wilner treadmill echocardiogram. Positive for ischemia by EKG and echocardiographic criteria. Patient developed [address] segment depression during exercise, which persisted for approximately 6 minutes and 56 seconds into recovery. This took place along the inferior lateral leads. Rare PVC noted. Hypertensive blood pressure response to exercise. Below average exercise capacity for age. In addition he appeared to develop mid anterior and inferior hypokinesis at peak exercise. No anginal symptoms noted. Baseline atrial fibrillation. Final LVEF of 45%. Test terminated due to leg discomfort. No complications. The study was technically difficult. Contrast injection was performed. Ordering Physician: Sharath Ruiz Referring Physician: Kevin Boogie Performed By: Adam Landry RCS
== END ==
PROVIDERS: Family Provider Family Medicine; PCP Family Medicine; Referring Provider Internal Medicine Cardiovascular Disease; Visit Provider Internal Medicine Cardiovascular Disease
DX: Z01.810 Encounter for preprocedural cardiovascular examination (principal); I48.91 Unspecified atrial fibrillation; E78.5 Hyperlipidemia, unspecified; I10 Essential (primary) hypertension
CPT/HCPCS: 93017; 93350; Q9957; A4216; C8928

== ENCOUNTER → 2018-11-23 07:28 | Outpatient (CLI) | payer MEDICARE, OTHER, SELFPAY ==
[2018-11-06 09:30] VITALS: BMI 31.5
--- NOTE | 2018-11-23 07:44 | RAD_ITS ---
STUDY: X-RAY CHEST REASON FOR EXAM: Male, 83 years old. TECHNIQUE: 1 view COMPARISON: None. FINDINGS: The heart is not enlarged. There is subpulmonic and mild pleural effusion on the right side. Heavy markings noted in both lower lung ribeiro more on the right. There is minimal blunting of the left costophrenic angle. The visualized bony structures are intact. There is opacity in the right lung apex. RAD/Chest 1 View IMPRESSION: Right-sided pleural effusion with heavy markings as mentioned. Underlying infection can't be excluded. Electronically Signed: Shola Suh, at 8:23 EDT Tel , Service support ,
[2018-11-23 07:55] LABS: International Normalized Ratio 1.3; Partial Thromboplast Time 36.2 Seconds (24.1-36.2); Prothrombin Time (Protime)PT. 16.2 SECONDS (11.7-14.9)
[2018-11-23 07:56] LABS: Absolute Lymphocyte Count 1.32 X10^3/ul (0.83-4.51); Basophil# 0.02 X10^3/uL; Basophil% 0.2 % (0-1); Eosinophil# 0.36 X10^3/uL; Eosinophils% 4.4 % (0-5); Hematocrit 26.7 % (40-54); Hemoglobin 8.5 g/dl (13.0-16.5); Lymphocyte # 1.32 X10^3/ul (4.0); Lymphocyte % 16.1 % (19-41); Mean Corp Hgb Conc 31.8 g/gl (32-36); Mean Corpuscular Volume 87.8 fL (80-94); Mean Platelet Vol. 10.7 fl (6.2-12.0); Monocyte# 0.51 X10^3/uL; Monocyte% 6.2 % (0-10); Neutrophil # 5.96 X10^3/uL (2.7-7.7); Platelet Count 171 K/mm3 (150-450); RBC Distribution Width CV 14.6 % (11.6-14.6); RBC Distribution Width SD 46.8 fl (35.1-43.9); Red Blood Count 3.04 M/mm3 (4.6-6.2); White Blood Count 8.2 K/mm3 (4.4-11.0)
[2018-11-23 07:59] LABS: POSITIVE COUNT NO; POSITIVE DIFFERENTIAL NO; POSITIVE MORPHOLOGY NO
[2018-11-23 08:16] LABS: Anion Gap 8 (5-15); BUN 26 mg/dL (7-18); BUN/Creat Ratio 14.9 RATIO (10-20); Calcium,Total 8.9 mg/dL (8.5-10.1); Chloride 113 mmol/L (98-107); Creatinine, Serum 1.75 mg/dL (0.70-1.30); EST Glomerular Filtration Rate 40 mL/min (>60); Est Glom Filt Rate - Afr Amer 48 mL/min (>60); Glucose 91 mg/dL (74-106); Sodium Level 145 mmol/L (136-145)
== END ==
PROVIDERS: Family Provider Family Medicine; PCP Family Medicine; Referring Provider Internal Medicine Cardiovascular Disease; Visit Provider Internal Medicine Cardiovascular Disease
DX: R06.09 Other forms of dyspnea (principal); I48.91 Unspecified atrial fibrillation; R94.39 Abnormal result of other cardiovascular function study; I35.0 Nonrheumatic aortic (valve) stenosis; R94.31 Abnormal electrocardiogram [ECG] [EKG]
CPT/HCPCS: 36415; 71045; 80048; 85025; 85610; 85730

== ENCOUNTER → 2018-11-23 10:21 | Outpatient (CLI) | payer MEDICARE, OTHER, SELFPAY ==
[2018-11-06 09:30] VITALS: BMI 31.5
--- NOTE | 2018-11-23 10:24 | CDU_ITS ---
Reason For Study: CAROTID ARTERY STENOSIS Rt. Velocities/BP Lt. Velocities/BP Prox CCA 87.5/28.3 cm/sec. Prox CCA 111.2/29.0 cm/sec. Mid CCA 76.0/0.0 cm/sec. Mid CCA 103.8/19.9 cm/sec. Dist CCA 31.0/0.0 cm/sec. Dist CCA 78.2/16.2 cm/sec. Prox ICA 124.8/15.1 cm/sec. Prox ICA 91.9/30.5 cm/sec. Mid ICA 102.9/23.9 cm/sec. Mid ICA 124.8/30.5 cm/sec. Dist ICA 129.0/21.7 cm/sec. Dist ICA 98.4/25.4 cm/sec. Rt. ICA/CCA = 129.0/87.5=1.5. Lt. ICA/CCA = 124.8/111.2=1.1. Prox ECA 162.1/10.7 cm/sec. Prox ECA 146.8/0.0 cm/sec. Rt. Vert. 26.4/14.1 cm/sec. Lt. Vert. 35.8/20.7 cm/sec. Right Extracranial There is heterogeneous, irregular atherosclerotic plaque noted in the right common carotid artery. There is heterogeneous, irregular atherosclerotic plaque noted in the right external carotid artery. Antegrade flow is noted in the right vertebral artery. There is heterogeneous, irregular atherosclerotic plaque noted in the right bulb. Left Extracranial There is heterogeneous, smooth atherosclerotic plaque noted in the left common carotid artery. There is heterogeneous, smooth atherosclerotic plaque noted in the left internal carotid artery. The atherosclerotic plaque causes acoustic shadowing. There is heterogeneous, irregular atherosclerotic plaque noted in the left external carotid artery. Antegrade flow is noted in the left vertebral artery. There is heterogeneous, irregular atherosclerotic plaque noted in the left bulb. Procedure Carotid Duplex 53105. The study was technically difficult. Exam performed in department. Interpretation Summary Technically difficult examination with difficulty in clearly identifying the right internal carotid artery. Irregular plague within the right common carotid, carotid bulb, and internal carotid. 50-69% stenosis of the right internal carotid--however--correlation with previous imaging techniques or further examination with CTA may be pertinent. 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 <50% stenosis left external carotid Patent and antegrade vertebrals bilaterally Ordering Physician: Sharath Ruiz Referring Physician: Kevin Boogie Performed By: Tricia Nguyen, DON, RVT
== END ==
PROVIDERS: Family Provider Family Medicine; PCP Family Medicine; Referring Provider Internal Medicine Cardiovascular Disease; Visit Provider Internal Medicine Cardiovascular Disease
DX: Z01.810 Encounter for preprocedural cardiovascular examination (principal); I65.23 Occlusion and stenosis of bilateral carotid arteries; I77.9 Disorder of arteries and arterioles, unspecified; R06.09 Other forms of dyspnea; I48.91 Unspecified atrial fibrillation; R94.39 Abnormal result of other cardiovascular function study; I35.0 Nonrheumatic aortic (valve) stenosis; R94.31 Abnormal electrocardiogram [ECG] [EKG]
CPT/HCPCS: 36415; 71045; 80048; 85025; 85610; 85730; 93880

== ENCOUNTER 2018-12-02 06:49 | Day surgery (SDC) | payer MEDICARE, OTHER, SELFPAY ==
[2018-11-06 09:30] VITALS: BMI 31.5
[2018-11-23 09:06] VITALS: BMI 31.5
[2018-11-30 12:41] VITALS: BMI 31.5
[2018-12-02 09:06] LABS: Blood Gas Specimen Type VEN; VBG BASE EXCESS -4 mmol/L (-1.0-3.5); VBG Bicarbonate 21 mmol/L (22-26); VBG Oxygen Content 23 mmol/L (23-33); VBG PO2 27 mmHg (25-40); VBG SO2 51 % (50-70); VBG pCO2 35.4 mmHg (41-51); VBG pH 7.39 (7.32-7.42)
[2018-12-02 09:06] LABS: Base Excess -8 mmol/L (-2 to +2); Bicarbonate 17.5 mmol/L (22-26); Blood Gas Specimen Type ART; PO2 85 mmHG (75-100); SO2 96 % (95-99); Total Carbon Dioxide 19 mmol/L; pCO2 32.5 mmHg (35-45); pH 7.34 (7.35-7.45)
[2018-12-02 09:06] LABS: Blood Gas Specimen Type VEN; VBG BASE EXCESS -4 mmol/L (-1.0-3.5); VBG Bicarbonate 21 mmol/L (22-26); VBG Oxygen Content 22 mmol/L (23-33); VBG PO2 30 mmHg (25-40); VBG SO2 59 % (50-70); VBG pCO2 33.5 mmHg (41-51)
--- NOTE | 2018-12-02 09:28 | CL.D_ITS ---
Patient Name: JOSE CHAWLA Study Date: 12/02/2018 Performing: Sharath Ruiz MD Ht: 72.83 inches 185 cm : 1935 Wt: 238.1 lbs 108 kg Age: 83 Gender: male BSA: 2.31 PROCEDURE(S) PERFORMED KE05-USL/LHC/COR/LV CLINICAL PROFILE AND INDICATIONS Indications: Suspected CAD, Cardiac Arrythmia Heart Failure: None Stress/Imaging Date: 11/19/2018 Angina Classification Anginal Classification w/in 2 Weeks: CCS III CAD Presentations: Other: Dyspnea on exertion, fatigue and abnl stress test. Comorbidities/Risk Factors: Hypertension Dyslipidemia CONCLUSIONS Triple vessel CAD of the LM, LAD, OMs, RCA. Normal LV size, wall motion,and systolic function Perserved Left Ventricular systolic function with normal EDP LVEF: by LV gram 65 % The patient has normal pulmonary hemodynamics. 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 RECOMMENDATIONS ASA Indefinitely Management as per referring Agency Legal Counsel Surgery consult for coronary revascularization at [facility] Gen surgery eval for h/o colon cancer and anemia. D/c plavix, restart eliquis on 12/07/2018. Manual sheath removal. DESCRIPTION OF PROCEDURE The patient arrived to the procedure lab. The risks and benefits of the procedure as well as a full d escription of our services here and current unavailability of surgical backup were fully explained to the patient and/or their significant other prior to the catheterization. The Timeout was completed, verifying the correct patient and procedure. The patient's procedural site was prepped and draped in the usual fashion. Local anesthetic was given subcutaneously to right groin region with Lidocaine 2%. Using a modified Seldinger technique, arterial access was obtained via the right femoral artery, a 4 Fr sheath was inserted Venous access was obtained via the right femoral vein, a 7Fr sheath was insert ed. A 7Fr thermal dilution catheter was inserted and right heart pressures were recorded, it was then advanced to PA position for cardiac outputs. Thermal dilution cardiac outputs were then recorded. O2 saturations were then obtained. Left Ventriculography was performed in HIGGINS projection using a 4 Fr. Pigtail catheter. Simultaneous pressures were then recorded. LV to AO pullback pressure s were then recorded. The Thermal dilution catheter was then removed. Left Coronary Artery selective angiography was performed in multiple views using a 4 Fr. JL5 catheter. Right Coronary Artery selecti ve angiography was then performed in multiple views using a 4 Fr. 3DRC catheter.The arterial sheath w as pulled and manual compression applied until hemostasis is achieved.. The venous sheath was then pu lled and manual compression applied until hemostasis achieved CORONARY ANGIOGRAPHY DOMINANCE: Right Dominant LEFT HEART ASSESSMENT Left Ventricular Ejection Fraction: by LV Gram 65 % Normal LV wall motion Normal Left Ventricular systolic function RIGHT HEART ASSESSMENT Thermal CO: 5.75 Thermal CI: 2.49 Yifan CO: 6.48 Yifan CI: 2.81 PW: / 18 PA: 28/03 19 RV: 37/0 3 RA: / 6 PVR: 14 SVR: 1308 LEFT MAIN: Moderate calcification, Moderate luminal irregularities up to 50% LEFT ANTERIOR DESCENDING ARTERY: PROX LAD: Severe calcification MID LAD: Mild calcification, Moderate calcification, 85 % Stenosis CIRCUMFLEX ARTERY: PROX CIRC: Moderate calcification MID CIRC: Mild luminal irregularities less than 30% OM 1: Mid - 75 % Stenosis OM 2: Mid - 75 % Stenosis RIGHT CORONARY ARTERY: is occluded COMPLICATIONS No Complications PROCEDURE MEDICATIONS Oxygen: 2 L/min via nasal cannula SUMMARY OF HEMODYNAMIC DATA Time AIR REST ECG 07:15:47 RA /9 (6) SV 08:42:10 RV 37/0, 3 08:42:27 PW / (18) PV 08:43:12 PA /10 (19) PA 08:44:46 LV 127/-9, 4 08:49:26 LV 131/-12, 2 08:49:33 LV 127/-9, 4 08:50:14 PW / (27) 08:50:14 LV 130/-10, 7 08:50:48 RV 36/0, 5 08:50:48 LV 126/-9, 12 08:52:44 LVp 126/-7, 9 08:52:47 AOp 122/68 (92) 08:52:52 AO 115/88 (100) SA 08:55:21 09:22:42 Type SV CO (l/m) CI (l/m/ HR Time AIR REST Thermal 53.20 5.75 2.49 108 07:15:47 Yifan 60.00 6.48 2.81 108 07:15:47 Label % O2 Pres/Loc Time AIR REST AO 96 PV 08:57:54 PA 55 PA 08:58:08 Signed By Sharath Ruiz MD On 12/02/2018 9:27:17 AM Sharath Ruiz MD
== END 2018-12-02 13:34 | disposition home or self-care (01) ==
LOC: CLSP 06:50
PROVIDERS: Family Provider Family Medicine; PCP Family Medicine; Referring Provider Internal Medicine Cardiovascular Disease; Visit Provider Internal Medicine Cardiovascular Disease
DX: I25.10 Atherosclerotic heart disease of native coronary artery without angina pectoris (principal); E78.5 Hyperlipidemia, unspecified; I10 Essential (primary) hypertension; J44.9 Chronic obstructive pulmonary disease, unspecified; R06.02 Shortness of breath; I48.91 Unspecified atrial fibrillation; K21.9 Gastro-esophageal reflux disease without esophagitis; Z85.038 Personal history of other malignant neoplasm of large intestine; Z79.899 Other long term (current) drug therapy; Z79.01 Long term (current) use of anticoagulants; Z87.891 Personal history of nicotine dependence; R94.39 Abnormal result of other cardiovascular function study
CPT/HCPCS: 82803; 93460; J7040; Q9967; C1751; C1769; C1894

== ENCOUNTER → 2019-01-28 11:47 | Outpatient (CLI) | payer MEDICARE, OTHER, SELFPAY ==
[2019-01-22 10:27] VITALS: BMI 29.0
--- NOTE | 2019-01-28 12:19 | CR.ITP_ITS ---
General Information - General Information Admitting Diagnosis: CABG x 3, Valve replacement - Education/Goals Barriers to Learning: None, Vision Impairment - wears glasses Individual Counseling: Initial Assessment: Abnormal Cholesterol Levels, High Blood Pressure, Overweight/Obesity, B. Waist Circumference >35/Females >40/Males, Hypertension, Low HDL <40/Males or <50/Females Cardiac Rehabilitation Goals: 1. Maintain the individual as the primary focus of care. 2. To improve the patient's quality of life. 3. Identification of cardiac risk factors and provide cardiac risk factor management. 4. Enhance the psychosocial status of the patient. 5. Reconditioning enough to allow the patient to resume customary activities. 6. Control symptoms of cardiac disease Scale for measuring improvement of personal goals: Enter appropriate number in Comments. 2 = Unchanged. 3 = Slightly Better. 4 = Moderate Improvement. 5 = Met my Goal Personal Goals: Initial Assessment: Improve management of stress and emotions, Improve energy level, Participate in home exercise program, Get back to work, or to resume activities faster, Improve knowledge of cardiac disease, Improve muscle strength and endurance, Improve diet and eating habits (eat healthier), Control risk factors (learn risk factor modification) Exercise - Initial Assessment - Visit Date of Eval: 01/28/19 - Stages of Change Stages of Change:: Action - Physician Prescribed Exercise Modalities: Treadmill, Biodyne, Rower, Airdyne, NuStep, SciFit Frequency (days/week): 3x/week for 12 weeks [36 sessions] Duration (Minutes):: 35-45 Intensity: 60-80% age predicted maximum heart rate reserve METs - Progression: 0.5-1.0 MET, RPE 11-14 WEEK: yes - Hypertension Do any of the following apply?: Yes, Medication, Diet - Intervention Home Exercise/Activity Goal:: Moderate Exercise 30 min/day x 5 days/wk - Education Goals:: Warm-up, RPE DANA Scale, S/S, Safe Exercise, Self-Monitoring - Exercise Program Goals Exercise Program Goals: Aerobic Activity >30 min Nutrition - Initial Assessment - Program Goals Nutrition Program Goals: LDL <70. Total Cholesterol <200. HDL >45. Triglycerides <150. HgbA1C <7%. BMI <25 - Visit Date of Assessment:: 01/28/19 - Stages of Change Stages of Change:: Action - Lipids HDL Cholesterol (mg/dL) Goal = less than 45 mg/dL: 27 LDL Cholesterol (mg/dL) Goal = less than 70 mg/dL: 31 Triglycerides (mg/dL) Goal = less than 150 mg/dL: 113 - Diabetes Diabetes:: No - Weight Management Height: 6 ft 1 in Weight:: 220 lb Weight Goal (kg):: 220 lb Body Fat %:: 29 - Intervention Referral to dietitian:: No Referral to Diabetic Clinic:: No Will attend diet classes:: Yes - Education Gave educational materials for:: Healthy eating Tobacco - Initial Assessment - Program Goals Tobacco Program Goals: Complete smoking cessation. Attend education classes. Improve Knowledge Test score - Stage of Change Stages of Change:: Maintenance - Learning Barriers Learning Barriers: Vision - glasses, Ready to Learn Total Score:: 14 - Family Support Do you have family support?: Yes - Tobacco Use Tobacco Use: Non-smoker - quit 1996 How long ago did you quit using tobacco products?: Greater than or equal to 6 months ago How many cigarettes do you smoke per day?: 0 Years Smokin - since 14 years old, quit 1996 Do you use smokeless tobacco?: No - Intervention Smoking Cessation Referral:: No Individual Education/Counseling:: No Education Schedule Given:: Yes - Education Attended class for:: Treating Heart Disease, How The Heart Works, What it means to have Heart Disease, How Coronary Artery Disease is Diagnosed, Heart Procedures, What Heart Medications Do, Risk Factors & Modifications, Living an Active Life, Nutrition, Emotions & Heart Disease, Stress Management & Relaxation, Sleep Disorders & Heart Disease Psychosocial - Initial Assess - Target Goals Target Goals: Assess presence or absence of depression. Using a valid screening tool, maximizes coping skills. Positive support system - Stages of Change Stages of Change:: Action - Psychosocial Test Tool Used:: HANDS Depression Questionnaire Self-reported stress:: no Tests Completed: SF - 36 survey completed, Mood Scale Test - 2 Total Mood Screening Score:: 2 Self-Efficacy Score:: 9 - Intervention PS - Interventions: Yes Attend Stress Management Classes, Yes Uses Stress Management Skills, No Referral to Mental Health, No Referral to [facility] Case Management, No Referral to Physician - Education Gave educational materials for:: Coping techniques, Signs & symptoms of depression, Stress management, Relaxation techniques - Patient/Program Goal Preventative Medication(s):: Aspirin, NILSON inhibitor, Clopidogrel, Beta mack, Statin/lipid - Assistive Devices Assistive Devices:: Cane Fall Risk Assessed:: Yes Patient Health Questionnaire Initial Assessment 1. Little interest or pleasure in doing things: More than half the days 2. Feeling down, depressed, or hopeless: Not at all 3. Trouble falling or staying asleep, or sleeping too much: Not at all 4. Feeling tired or having little energy: Not at all 5. Poor appetite or overeating: Not at all 6. Feeling bad about yourself -- or that you are a failure or have let yourself or your family down: Not at all 7. Trouble concentrating on things, such as reading the newspaper or watching television: Not at all 8. Moving or speaking so slowly that other people could have noticed. Or the opposite - being so fidgety or restless that you have been moving around a lot more than usual: Not at all 9. Thoughts that you would be better off , or of hurting yourself in some way: Not at all How difficult have these problems made it for you to do your work, take care of things at home, or get along with other people?: Not difficult at all Total Score: 2 DORIE-Q SV Test - Statements CAD is a disease of the arteries in the heart: True Examples of risk factors for heart disease: True Angina is chest pain or discomfort: True The benefits of resistance training include: True Eating more meat and dairy products: True Anti-platelet medications such as aspirin are important: True The only effective way to manage stress: I Don't Know An exercise warm-up slowly increases heart rate: True Prepared, processed foods usually have high sodium: True Depression is common after a heart attack: True The statin medications lower cholesterol: True To control blood pressure, lower the amount of sodium: True If someone gets chest discomfort during walking: False Transfats are partially hydrogenated vegetable oils: True Sleep apnea that is not treated increases the risk: I Don't Know To control cholesterol, one should become a vegetarian: True Someone knows if he/she is exercising at the right level: True Diabetes cannot be prevented with exercise & health eating: True Stress is a large risk for heart attack: True A diet that can help lower blood pressure is rich in: True - Total Score Total Correct Responses: 14 Self-Efficacy Initial Assessment We would like to know how confident you are in doing certain activities. Please select your confidence level for:: Select your confidence level for the following using the scale 1-10 where 1 is not at all confident and 10 is totally confident. Your score is the average of all 6 responses. Fatigue: How confident are you that you can keep the fatigue caused by your disease from interfering with the things you want to do? Select Number: 8 Physical Discomfort or Pain: How confident are you that you can keep the physical discomfort or pain of your disease from interfering with the things you want to do? Select Number: 10 Emotional Distress: How confident are you that you can keep the emotional distress caused by your disease from interfering with the things you want to do? Select Number: 9 Other Symptoms or Health Problems: How confident are you that you can keep other symptoms or health problems from interfering with the things you want to do? Select Number: 10 Different Tasks and Activities: How confident are you that you can do the different tasks and activities needed to manage your health condition so as to reduce your need to see a doctor? Select Number: 10 Medication: How confident are you that you can do things other than just taking medication to reduce how much your illness affects your everyday life? Select Number: 10 Total Score:: 9 Nutrition Survey - Nutrition Survey Instructions Scoring Instructions: Scoring is as follows: Yes = 1 points. No = 0 point. Patient score that is >/=12 is considered to be at potential nutritional risk and could benefit from a referral to a registered dietitian. - Nutrition Survey Initial Have you lost >10 lbs over the past 2 months without trying?: No Are you following a special diet at home for diabetes, low fat, or low salt?: No Are you interested in meeting with a dietitian for help understanding your diet?: No Do you eat less than 3 meals a day?: No Do you eat fatty meats (jane, sausage, ribs, etc), fried foods, desserts, large amounts of salad dressings, margarine, butter, or cheese most days?: Yes Do you have food allergies? [Enter types in comment field]: No Do you eat in restaurants more than 3 times a week?: No Do you season food with salt, seasoning salt, or garlic salt?: No Do you used canned, boxed, frozen meals, or soups, seasoning packets?: No Total Score:: 1
--- NOTE | 2019-01-28 12:48 | CR.HP_ITS ---
CR - History & Physical - General Arrival date:: 01/28/19 Arrival time:: 12:48 Date of Referral:: 01/28/19 Date of CR Evaluation:: 01/28/19 Referring Physician: Dr. Missy Ruiz Primary Diagnosis: CABG x 3, valve repair. - History of Present Cardiac Event Onset Date: Enter Onset Date of cardiac illnesses in Comment field below Current stable Angina Pectoris:: No Acute Myocardial Infarction within 12 months:: No Coronary Artery Bypass Graft:: Yes - x 3 12/25/18 Heart valve replacement or repair:: Yes PTCA or coronary stenting:: No Heart or Heart-Lung Transplant:: No Heart Failure EF <35%:: Yes Type of Symptoms:: found problem when failed stress test. Interventions with present event:: CABG, Valve repair Were there any complications?: atrial fibrillation - Medications Home Medications: Ambulatory Orders Medication Instructions Recorded atorvastatin 80 mg tablet 80 mg PO QDAY 07/14/17 coenzyme Q10 100 mg capsule 100 mg PO QDAY 07/14/17 omega-3s 300 [id number] 1 cap PO .DAILY ea 07/14/17 [id number] oil 1,000 mg capsule ranitidine 300 mg capsule 300 mg PO DAILY 07/14/17 triamcinolone acetonide 0.1 % 1 applic TOPICAL QDAY PRN 07/14/17 topical cream Oxybutynin [Ditropan] 5 mg PO QHS 11/04/18 Tamsulosin HCl [Flomax] 0.4 mg PO QHS 11/04/18 aspirin 81 mg tablet,delayed 81 mg PO DAILY 11/20/18 release acetaminophen 325 mg capsule 650 mg PO Q6H PRN cap 01/04/19 furosemide 20 mg tablet 20 mg PO DAILY 01/04/19 lansoprazole 30 mg capsule,delayed 30 mg PO BID 01/04/19 release oxycodone 5 mg tablet 5 mg PO Q6H PRN tab 01/04/19 potassium chloride ER 10 mEq 10 meq PO DAILY 01/04/19 capsule,extended release metoprolol succinate ER 25 mg 25 mg PO BID tab 01/22/19 tablet,extended release 24 hr warfarin 1 mg tablet 1 mg PO .COMPLEX #90 tab 01/22/19 warfarin 2.5 mg tablet 2.5 mg PO .COMPLEX #90 tab 01/22/19 - Allergies Allergies/Adverse Reactions: Allergies adhesive tape Allergy (Intermediate, Verified 12/08/18 14:05) dermatitis - Sleep Disorder Evaluation Hx of Sleep Apnea: No Do you snore loudly (louder than talking or can be heard through closed doors)?: No Do you often feel tired/ fatigued/ sleepy during daytime?: No Has anyone observed you stop breathing during sleep?: No History of Hypertension (for STOP score): Yes STOP Results: Negative Advanced Directives - Advanced Directives Power of Architectural Project Captain: Yes Living Will: Yes Advance Directives Information Provided: Yes Advance Directives on File: No Past Medical History - Past Medical Illness Medical History: Past Medical History (Last Reviewed 01/22/19 @ 10:27 by Eliana Childers) Atherosclerosis of coronary artery of [place] heart without angina pectoris (Chronic) I25.10 NEFF to LAD, SVG to Lateral CX, and SVG to PDA 12/25/[address] Paulino Flores, [facility] Carotid artery disease (Chronic) I77.9 ON PLAVIX FOR THIS FROM DR. GIRMA FISHMAN: occluded proximal right carotid and right vertebral with collaterals Aortic stenosis (Chronic) I35.0 ST segment depression (Acute) R94.31 Dyspnea on exertion (Acute) R06.09 Abnormal stress test (Acute) R94.39 New onset atrial fibrillation (Acute) I48.91 Pre-operative cardiovascular examination (Acute) Z01.810 Hypertension (Chronic) I10 Hyperlipidemia (Chronic) E78.5 Anemia (Acute) D64.9 Prostatic hypertrophy (Acute) N40.0 Acid reflux (Chronic) K21.9 COPD (chronic obstructive pulmonary disease) (Chronic) J44.9 Colon cancer (Chronic) C18.9 Allergic rhinitis J30.9 Abnormality of gait R26.9 Obesity E66.9 Blood clots in stool (Resolved) K92.1 - Past Surgical History Surgical History: Past Surgical History (Last Reviewed 01/22/19 @ 10:27 by Eliana Childers) Status post mitral valve repair (Chronic) Onset Date: 12/25/18 Z98.890 Mitral Valve repair with [place] band #29 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 Paulino Flores, [facility] History of right and left heart catheterization (Chronic) Onset Date: 12/02/18 Z98.890 Triple vessel CAD of the LM, LAD, OMs, RCA. Normal LV size, wall motion,and systolic function Perserved Left Ventricular systolic function with normal EDP LVEF: by LV gram 65 % The patient has normal pulmonary hemodynamics. 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 History of colectomy Z98.890, Z90.49 for colon cancer History of colonoscopy Onset Date: 09/30/17 Z98.890 Surgical History: colectomy, coronary bypass surgery - mitral valve repair - Family History Summary Family History: Family History (Last Reviewed 01/22/19 @ 10:27 by Eliana Childers) Father , of pneumonia Pneumonia Mother , of CAD CAD (coronary artery disease) Arthritis Sister , Cause unknown Rheumatoid arthritis Oral cancer Sister Arthritis Sister No problems noted. Sister No problems noted. Social History - Smoking History Smoking Status: Former smoker Hx Tobacco Use: Yes - started age 14, quit in 1996 Hx Smoking Exposure: No - Alcohol Use Alcohol Usage: Yes - 1-2 weekly - Substance Abuse Hx Substance Use: No - Occupation Occupation (List type of work in comments):: Retired - Hobbies, Recreation, Social Activities Hobbies: Other - gardening Recreational Activities: I am able to engage in a few activities Social Environment - Status Marital Status: - Current Living Arrangements Living Environment:: Spouse - Children How many children do you have?: 3 Do any of your children live nearby?: No - Safety Do you feel safe in your surroundings?: Yes - Assistance Do you need any assistance at home?: no Review of Systems - Review of Systems Hints: Right click = Denies (Slash). Left click = Reports (Vaughn) Review of Present Symptoms: Reports: Wound Healing - few dry crusty scabs remain, Appetite - Normal, Appetite - Special Diet, Sleep - Normal. Denies: Shortness of Breath at Rest, Shortness of Breath with Exertion, PVD, Operative Discomfort, Angina, Dizziness/Lightheadedness, Fatigue, Heart Arrhythmia/Irregularities - has a fib., Sexual Changes - Pain Is Patient Pain Free?: Yes Risk Factor Assessment - Chief Complaint Chief Complaint: s/p cabg - Vital Signs Pulse Ox: 100 - Pulse Pulse Rate: 108 Pulse Rhythm: Irregular - Hypertension How long have you been treated?: 20 Blood Pressure Sitting - Right Arm: 142/70 Blood Pressure Sitting - Left Arm: 144/90 - Blood Cholesterol/Lipids HDL Cholesterol (mg/dL) Goal = less than 40 mg/dL: 27 LDL Cholesterol (mg/dL) Goal = less than 70 mg/dL: 31 Triglycerides (mg/dL) Goal = less than 150 mg/dL: 113 - Diabetes Nutrition Referral for Diabetes: No - Obesity Height: 6 ft 1 in Weight:: 220 lb Weight in Pounds: 220.0 lbs Weight Source: Stated by Patient Body Mass Index (BMI): 29.0 Realistic Weight Goal (Loss of 1-2 lbs/week): 200 Nutritional Referral for Obesity: No - Physical Inactivity Physical Inactivity: Reg Exercise 30 min/day - Risk Stratification Risk Guidelines: Lowest Risk: Risk Factor for Smoking, Risk Factor for Diabetes, Risk Factor for Sedentary Lifestyle, Risk Factor for Depression, Moderate Risk: Risk Factor for Dyslipidemia, Risk Factor for Obesity, Risk Factor for Hypertension - For Smoking Smoking Risk Guidelines: Smoking Low Risk: None or quit greater than 6 months ago. Smoking Moderate Risk: Smoker or quit 6 months or less ago. Smoking High Risk: Smoker - For Dyslipidemia Dyslipidemia Risk Guidelines: Low Risk: Moderate Risk: High Risk: 15-25% fat 25.1-29% fat >/= 30% fat. <7% sat fat 7-9% sat fat >9% sat fat. <150 mg chol 150-299 mg chol >/= 300 mg chol. LDL <100 LDL 100-129 LDL >/= 130. Chol/HDL ratio <5.0 Chol/HDL ratio 5.0-6.0 Chol/HDL ratio >6.0. Triglycerides <100 Triglycerides 100- 149 Triglycerides >/= 150 - For Diabetes Mellitus Diabetes Risk Guidelines: Diabetes Low Risk: HgA1c <6.5% and/or FBG <120. Diabetes Moderate Risk: HgA1c 6.6-7.9% and/or FBG 120-180. Diabetes High Risk: HgA1c >/= 8% and/or FBG >180 - For Obesity/Overweight Obesity/Overweight Risk Guidelines: Obesity Low Risk: BMI <25.0. Obesity Moderate Risk: BMI 25-29.9. Obesity High Risk: BMI >/= 30.0 - For Hypertension Hypertension Risk Guidelines: Hypertension Low Risk: Systolic <120 and Diastolic <80. Hypertension Moderate Risk: Systolic 120-139 and Diastolic 80-89. Hypertension High Risk: Systolic >/= 140 and Diastolic >/= 90 - For Sedentary Lifestyle Sedentary Lifestyle Risk Guidelines: Sedentary Lifestyle Low Risk: >/= 1,500 kcal/week. Sedentary Lifestyle Moderate Risk: 700-1,499 kcal/week. Sedentary Lifestyle High Risk: < 700 kcal/week - For Depression Depression Risk Guidelines: Depression Low Risk: Not clinically depressed. Depression Moderate Risk: Mildly depressed. Depression High Risk: Clinically depressed - Family History Family History: Family History (Last Reviewed 01/22/19 @ 10:27 by Eliana Childers) Father Pneumonia Mother CAD (coronary artery disease) Arthritis Sister Rheumatoid arthritis Oral cancer Sister Arthritis Sister No problems noted. Sister No problems noted. Motivation - Motivation to Participate On a scale of 1 to 10, how prepared are you to commit to attending program?: 10
[2019-01-28 13:15] VITALS: BP 142/70; BP 144/90; PULSE 108; O2SAT 100; BMI 29.0
== END ==
PROVIDERS: Family Provider Family Medicine; PCP Family Medicine; Referring Provider Internal Medicine Cardiovascular Disease; Visit Provider Internal Medicine Cardiovascular Disease
DX: I25.10 Atherosclerotic heart disease of native coronary artery without angina pectoris (principal); I35.0 Nonrheumatic aortic (valve) stenosis; Z95.2 Presence of prosthetic heart valve; Z95.1 Presence of aortocoronary bypass graft

== ENCOUNTER 2019-01-28 14:32 | Outpatient (RCR) | payer MEDICARE, OTHER, SELFPAY ==
[2019-01-22 10:27] VITALS: BMI 29.0
[2019-01-22 12:43] LABS: International Normalized Ratio 1.4; Prothrombin Time (Protime)PT. 17.1 SECONDS (11.7-14.9)
[2019-01-28 15:00] LABS: International Normalized Ratio 1.5; Prothrombin Time (Protime)PT. 17.7 SECONDS (11.7-14.9)
== END 2019-01-28 15:32 | disposition home or self-care (01) ==
LOC: LAB 14:32
PROVIDERS: Family Provider Family Medicine; PCP Family Medicine; Referring Provider Internal Medicine Cardiovascular Disease; Visit Provider Internal Medicine Cardiovascular Disease
DX: I48.91 Unspecified atrial fibrillation (principal)
CPT/HCPCS: 36415; 85610

== ENCOUNTER 2019-02-26 12:27 | Outpatient (RCR) | payer MEDICARE, OTHER, SELFPAY ==
[2019-01-28 13:15] VITALS: BMI 29.0
[2019-02-04 11:53] LABS: International Normalized Ratio 1.6; Prothrombin Time (Protime)PT. 19.2 SECONDS (11.7-14.9)
[2019-02-12 12:52] LABS: International Normalized Ratio 1.7; Prothrombin Time (Protime)PT. 20.2 SECONDS (11.7-14.9)
[2019-02-12 13:38] LABS: Anion Gap 5 (5-15); BUN 21 mg/dL (7-18); BUN/Creat Ratio 16.9 RATIO (10-20); Calcium,Total 9.5 mg/dL (8.5-10.1); Chloride 110 mmol/L (98-107); Creatinine, Serum 1.24 mg/dL (0.70-1.30); EST Glomerular Filtration Rate 59 mL/min (>60); Est Glom Filt Rate - Afr Amer 72 mL/min (>60); Glucose 67 mg/dL (74-106); Sodium Level 142 mmol/L (136-145)
[2019-02-19 13:21] LABS: International Normalized Ratio 1.6; Prothrombin Time (Protime)PT. 18.9 SECONDS (11.7-14.9)
[2019-02-26 14:01] LABS: International Normalized Ratio 1.9; Prothrombin Time (Protime)PT. 21.4 SECONDS (11.7-14.9)
== END 2019-02-26 13:00 | disposition home or self-care (01) ==
LOC: LAB 12:27
PROVIDERS: Family Provider Family Medicine; PCP Family Medicine; Referring Provider Internal Medicine Cardiovascular Disease; Visit Provider Internal Medicine Cardiovascular Disease
DX: Z79.01 Long term (current) use of anticoagulants (principal)
CPT/HCPCS: 36415; 80048; 85610

== ENCOUNTER 2019-03-01 13:00 | Outpatient (RCR) | payer MEDICARE, OTHER, SELFPAY ==
[2019-01-28 13:15] VITALS: BMI 29.0
--- NOTE | 2019-02-26 07:08 | CR.ITP_ITS ---
Exercise - 30-day Assessment - Visit Date of Eval: 02/26/19 Session #:: 10 - Stages of Change Stages of Change:: Action - Physician Prescribed Exercise Modalities: Treadmill, Airdyne, NuStep Frequency (days/week): 3 Duration (Minutes):: 30-45 Intensity: 60-80% age predicted maximum heart rate reserve METs - Progression: 0.5-1.0 MET, RPE 11-14 WEEK: 3.0 LIMITED BY CHRONIC A- FIBRILLATION HRs Target Heart Rate:: 90-116 MAX HR 122 (A-FIB) - Hypertension Resting Blood Pressure:: 134/80 Peak Exercise Blood Pressure:: 134/80 Medication Changes:: No - Intervention Home Exercise/Activity Goal:: Sitting Time <3 hrs/day - Education Goals:: Warm-up, RPE DANA Scale, S/S, Safe Exercise, Self-Monitoring - Exercise Program Goals Exercise Program Goals: Aerobic Activity >30 min Nutrition - 30-Day Assessment - Program Goals Nutrition Program Goals: LDL <70. Total Cholesterol <200. HDL >45. Triglycerides <150. HgbA1C <7%. BMI <25 - Visit Date of Eval: 02/26/19 - Stages of Change Stages of Change:: Action - Lipids Has the patient seen the dietitian?: No - Diabetes Diabetes:: No Insulin: No Non-Insulin Dependent?: No - Weight Management Weight:: 220 lb - Intervention Referral to dietitian:: No Referral to Diabetic Clinic:: No Will attend diet classes:: Yes - Education Attended class for:: Healthy eating Tobacco - Initial Assessment - Program Goals Tobacco Program Goals: Complete smoking cessation. Attend education classes. Improve Knowledge Test score - Learning Barriers Learning Barriers: Vision - glasses, Ready to Learn Tobacco - 30-Day Assessment - Program Goals Tobacco Program Goals: Complete smoking cessation. Attend education classes. Improve Knowledge Test score - Stage of Change Stages of Change:: Action - Learning Barriers Learning Barriers: Participates in education, Change in behavior - Family Support Do you have family support?: Yes - Tobacco Use Tobacco Use: Non-smoker Do you use smokeless tobacco?: No - Intervention Smoking Cessation Referral:: No Individual Education/Counseling:: No Education Schedule Given:: Yes - Education Attended class for:: Treating Heart Disease, How The Heart Works, What it means to have Heart Disease, How Coronary Artery Disease is Diagnosed, Heart Procedures, What Heart Medications Do, Risk Factors & Modifications, Living an Active Life, Nutrition, Emotions & Heart Disease, Stress Management & Rela xation, Sleep Disorders & Heart Disease Psychosocial - Initial Assess - Target Goals Target Goals: Assess presence or absence of depression. Using a valid screening tool, maximizes coping skills. Positive support system - Psychosocial Test Tool Used:: HANDS Depression Questionnaire - Assistive Devices Fall Risk Assessed:: Yes Psychosocial - 30-Day Assess - Target Goals Target Goals: Assess presence or absence of depression. Using a valid screening tool, maximizes coping skills. Positive support system - Stages of Change Stages of Change:: Action - Psychosocial Test Tool Used:: HANDS Depression Questionnaire - Intervention PS - Interventions: Yes Attend Stress Management Classes, Yes Uses Stress Management Skills, No Referral to Mental Health, No Referral to [facility] Case Management, No Referral to Physician - Education Attended classes for:: Coping techniques, Signs & symptoms of depression, Stress management, Relaxation techniques - Patient/Program Goal Preventative Medication(s):: Aspirin, NILSON inhibitor, Clopidogrel, Beta mack, Statin/lipid - Assistive Devices Assistive Devices:: None Fall Risk Assessed:: Yes Patient Health Questionnaire 30-Day Re-eval Assessment 1. Little interest or pleasure in doing things: More than half the days 2. Feeling down, depressed, or hopeless: Not at all 3. Trouble falling or staying asleep, or sleeping too much: Not at all 4. Feeling tired or having little energy: Not at all 5. Poor appetite or overeating: Not at all 6. Feeling bad about yourself -- or that you are a failure or have let yourself or your family down: Not at all 7. Trouble concentrating on things, such as reading the newspaper or watching television: Not at all 8. Moving or speaking so slowly that other people could have noticed. Or the opposite - being so fidgety or restless that you have been moving around a lot more than usual: Not at all 9. Thoughts that you would be better off , or of hurting yourself in some way: Not at all How difficult have these problems made it for you to do your work, take care of things at home, or get along with other people?: Not difficult at all Total Score: 2 Self-Efficacy 30-Day Re-eval Assessment We would like to know how confident you are in doing certain activities. Please select your confidence level for:: Select your confidence level for the following using the scale 1-10 where 1 is not at all confident and 10 is totally confident. Your score is the average of all 6 responses. Fatigue: How confident are you that you can keep the fatigue caused by your di sease from interfering with the things you want to do? Select Number: 8 Physical Discomfort or Pain: How confident are you that you can keep the physi kareem discomfort or pain of your disease from interfering with the things you want to do? Select Number: 10 Emotional Distress: How confident are you that you can keep the emotional distress caused by your disease from interfering with the things you want to do? Select Number: 9 Other Symptoms or Health Problems: How confident are you that you can keep other symptoms or health problems from interfering with the things you want to do? Select Number: 10 Different Tasks and Activities: How confident are you that you can do the different tasks and activities needed to manage your health condition so as to reduce your need to see a doctor? Select Number: 10 Medication: How confident are you that you can do things other than just taking medication to reduce how much your illness affects your everyday life? Select Number: 10 Total Score:: 9
[2019-02-26 07:13] VITALS: BP 134/80
== END 2019-03-01 23:59 ==
LOC: CR 13:00
PROVIDERS: Family Provider Family Medicine; PCP Family Medicine; Referring Provider Internal Medicine Cardiovascular Disease; Visit Provider Internal Medicine Cardiovascular Disease
DX: I25.10 Atherosclerotic heart disease of native coronary artery without angina pectoris (principal); Z95.1 Presence of aortocoronary bypass graft; Z98.890 Other specified postprocedural states; Z95.2 Presence of prosthetic heart valve
CPT/HCPCS: 93798

== ENCOUNTER 2019-03-31 12:16 | Outpatient (RCR) | payer MEDICARE, OTHER, SELFPAY ==
[2019-01-28 13:15] VITALS: BMI 29.0
[2019-03-05 13:01] LABS: Prothrombin Time (Protime)PT. 22.8 SECONDS (11.7-14.9)
[2019-03-12 12:47] LABS: Prothrombin Time (Protime)PT. 22.3 SECONDS (11.7-14.9)
[2019-03-19 12:57] LABS: International Normalized Ratio 2.1; Prothrombin Time (Protime)PT. 23.1 SECONDS (11.7-14.9)
[2019-03-19 13:28] LABS: T4 Free Direct 1.15 ng/dL (0.76-1.46); Thyroid Stim Hormone (TSH) 7.56 uIU/mL (0.358-3.74)
[2019-03-31 13:08] LABS: Prothrombin Time (Protime)PT. 22.8 SECONDS (11.7-14.9)
== END 2019-03-31 18:00 | disposition home or self-care (01) ==
LOC: LAB 12:16
PROVIDERS: Family Provider Family Medicine; PCP Family Medicine; Referring Provider Internal Medicine Cardiovascular Disease; Visit Provider Internal Medicine Cardiovascular Disease
DX: Z79.01 Long term (current) use of anticoagulants (principal); R79.89 Other specified abnormal findings of blood chemistry; E53.8 Deficiency of other specified B group vitamins; I10 Essential (primary) hypertension
CPT/HCPCS: 36415; 82746; 84439; 84443; 85610

== ENCOUNTER 2019-03-31 13:00 | Outpatient (RCR) | payer MEDICARE, OTHER, SELFPAY ==
[2019-01-28 13:15] VITALS: BMI 29.0
[2019-03-02 00:15] VITALS: BP 134/80
--- NOTE | 2019-03-26 08:58 | CR.ITP_ITS ---
Exercise - 60-Day Assessment - Visit Date of Eval: 03/26/19 Session #:: 22 - has not missed any sessions - Stages of Change Stages of Change:: Action - Physician Prescribed Exercise Modalities: Treadmill, NuStep, SciFit Frequency (days/week): 3 Duration (Minutes):: 30-45 Intensity: 60-80% age predicted maximum heart rate reserve METs - Progression: 0.5-1.0 MET, RPE 11-14 WEEK: 3.5 limited by gait/ max HR Target Heart Rate:: 90-116 w max HR 115 - Hypertension Resting Blood Pressure:: 114/80 Peak Exercise Blood Pressure:: 124/70 Medication Changes:: No - Intervention Home Exercise/Activity Goal:: Moderate Exercise 30 min/day x 5 days/wk - Education Goals:: Warm-up, RPE DANA Scale, S/S, Safe Exercise, Self-Monitoring - Exercise Program Goals Exercise Program Goals: Aerobic Activity >30 min Nutrition - 60-Day Assessment - Program Goals Nutrition Program Goals: LDL <70. Total Cholesterol <200. HDL >45. Triglycerides <150. HgbA1C <7%. BMI <25 - Visit Date of Eval: 03/26/19 - Stages of Change Stages of Change:: Action - Lipids Has the patient seen the dietitian?: No - Diabetes Diabetes:: No Insulin: No Non-Insulin Dependent?: No - Weight Management Weight:: 225 lb 8 oz - Intervention Referral to dietitian:: No Referral to Diabetic Clinic:: No Will attend diet classes:: Yes - Education Attended class for:: Healthy eating Tobacco - Initial Assessment - Program Goals Tobacco Program Goals: Complete smoking cessation. Attend education classes. Improve Knowledge Test score - Learning Barriers Learning Barriers: Vision - glasses, Ready to Learn Tobacco - 60-Day Assessment - Program Goals Tobacco Program Goals: Complete smoking cessation. Attend education classes. Improve Knowledge Test score - Stage of Change Stages of Change:: Action - Learning Barriers Learning Barriers: Participates in education - Family Support Do you have family support?: Yes - Tobacco Use Tobacco Use: Non-smoker Do you use smokeless tobacco?: No - Intervention Smoking Cessation Referral:: No Individual Education/Counseling:: No Education Schedule Given:: Yes - Education Attended class for:: Heart Procedures, What Heart Medications Do, Risk Factors & Modifications, Living an Active Life, Nutrition, Emotions & Heart Disease, Stress Management & Relaxation, Sleep Disorders & Heart Disease Psychosocial - Initial Assess - Target Goals Target Goals: Assess presence or absence of depression. Using a valid screening tool, maximizes coping skills. Positive support system - Psychosocial Test Tool Used:: HANDS Depression Questionnaire - Assistive Devices Fall Risk Assessed:: Yes Psychosocial - 60-Day Assess - Target Goals Target Goals: Assess presence or absence of depression. Using a valid screening tool, maximizes coping skills. Positive support system - Stages of Change Stages of Change:: Action - Psychosocial Test Tool Used:: HANDS Depression Questionnaire - Intervention PS - Interventions: Yes Attend Stress Management Classes, Yes Uses Stress Management Skills, No Referral to Mental Health, No Referral to [facility] Case Manag ement, No Referral to Physician - Education Attended classes for:: Coping techniques, Signs & symptoms of depression, Stress management, Relaxation techniques - Patient/Program Goal Preventative Medication(s):: Aspirin - patient comliant with medications, NILSON inhibitor, Clopidogrel, Beta mack, Statin/lipid - Assistive Devices Assistive Devices:: None Fall Risk Assessed:: Yes Patient Health Questionnaire 60-Day Re-eval Assessment 1. Little interest or pleasure in doing things: Several days 2. Feeling down, depressed, or hopeless: Not at all 3. Trouble falling or staying asleep, or sleeping too much: Not at all 4. Feeling tired or having little energy: Not at all 5. Poor appetite or overeating: Not at all 6. Feeling bad about yourself -- or that you are a failure or have let yourself or your family down: Not at all 7. Trouble concentrating on things, such as reading the newspaper or watching television: Not at all 8. Moving or speaking so slowly that other people could have noticed. Or the opposite - being so fidgety or restless that you have been moving around a lot more than usual: Not at all 9. Thoughts that you would be better off , or of hurting yourself in some way: Not at all How difficult have these problems made it for you to do your work, take care of things at home, or get along with other people?: Not difficult at all Total Score: 1 Self-Efficacy 60-Day Re-eval Assessment We would like to know how confident you are in doing certain activities. Please select your confidence level for:: Select your confidence level for the following using the scale 1-10 where 1 is not at all confident and 10 is totally confident. Your score is the average of all 6 responses. Fatigue: How confident are you that you can keep the fatigue caused by your disease from interfering with the things you want to do? Select Number: 10 Physical Discomfort or Pain: How confident are you that you can keep the physical discomfort or pain of your disease from interfering with the things you want to do? Select Number: 10 Emotional Distress: How confident are you that you can keep the emotional distress caused by your disease from interfering with the things you want to do? Select Number: 10 Other Symptoms or Health Problems: How confident are you that you can keep other symptoms or health problems from interfering with the things you want to do? Select Number: 10 Different Tasks and Activities: How confident are you that you can do the different tasks and activities needed to manage your health condition so as to reduce your need to see a doctor? Select Number: 10 Medication: How confident are you that you can do things other than just taking medication to reduce how much your illness affects your everyday life? Select Number: 10 Total Score:: 10
[2019-03-26 09:02] VITALS: BP 114/80; BP 124/70
== END 2019-04-01 23:59 ==
LOC: CR 13:00
PROVIDERS: Family Provider Family Medicine; PCP Family Medicine; Referring Provider Internal Medicine Cardiovascular Disease; Visit Provider Internal Medicine Cardiovascular Disease
DX: Z95.1 Presence of aortocoronary bypass graft (principal)
CPT/HCPCS: 93798

== ENCOUNTER 2019-04-23 10:07 | Day surgery (SDC) | payer MEDICARE, OTHER, SELFPAY ==
[2019-01-22 10:27] VITALS: BMI 29.0
[2019-03-24 10:14] VITALS: BMI 30.1
--- NOTE | 2019-03-24 11:11 | HP_ITS ---
HPI HPI History of Present Illness Surgical H&P: Yes Details: This is an 83-year-old gentleman that presents here today for an updated history and physical for an upcoming cardioversion. He recently established with us earlier this year for a preoperative assessment for a urologic procedure in which he was noted to have asymptomatic atrial fibrillation. He does have a history of coronary artery disease with recent bypass surgery in November 2018. He had a sequential SVG to the lateral circumflex and PDA as well as an NEFF to the LAD. He also had repair of his mitral valve with a dural band #29. He does have a history of hypertension and hyperlipidemia. Patient still does note that he has shortness of breath with exertion. However he is attending cardiac rehab and feels that he has improved since his surgery. He does not have any chest pain. He does not have any orthopnea. He does not have any lightheadedness or dizziness. He does not have any lower extremity edema. 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 Accompanied by: None Is patient in pain?: No Allergies adhesive tape Allergy (Intermediate, Verified 03/24/19 10:14) dermatitis Medications atorvastatin 80 mg tablet 80 mg PO QDAY 07/14/17 [History Confirmed 01/28/19] coenzyme Q10 100 mg capsule 100 mg PO QDAY 07/14/17 [History Confirmed 01/28/19] omega-3s 300 es-swi-foa-other [id number] oil 1,000 mg capsule 1 cap PO .DAILY ea 07/14/17 [History Confirmed 01/28/19] ranitidine 300 mg capsule 300 mg PO DAILY 07/14/17 [History Confirmed 01/28/19] triamcinolone acetonide 0.1 % topical cream 1 applic TOPICAL QDAY PRN 07/14/17 [History Confirmed 01/28/19] Oxybutynin [Ditropan] 5 mg PO QHS 11/04/18 [History Confirmed 01/28/19] Tamsulosin HCl [Flomax] 0.4 mg PO QHS 11/04/18 [History Confirmed 01/28/19] aspirin 81 mg tablet,delayed release 81 mg PO DAILY 11/20/18 [History Confirmed 01/28/19] acetaminophen 325 mg capsule 650 mg PO Q6H PRN cap 01/04/19 [History Confirmed 01/28/19] furosemide 20 mg tablet 20 mg PO DAILY 01/04/19 [History Confirmed 01/28/19] lansoprazole 30 mg capsule,delayed release 30 mg PO BID 01/04/19 [History Confirmed 01/28/19] oxycodone 5 mg tablet 5 mg PO Q6H PRN tab 01/04/19 [History Confirmed 01/28/19] potassium chloride ER 10 mEq capsule,extended release 10 meq PO DAILY 01/04/19 [History Confirmed 01/28/19] warfarin 1 mg tablet 1 mg PO .COMPLEX #90 tab 01/22/19 [Rx Confirmed 03/05/19] warfarin 2.5 mg tablet 2.5 mg PO .COMPLEX #90 tab 01/22/19 [Rx Confirmed 03/05/19] metoprolol succinate ER 50 mg tablet,extended release 24 hr 50 mg PO BID #60 tab 02/03/19 [Rx] PFS Medical History (Updated 03/24/19 @ 11:06 by BHARTI Johnston) Atherosclerosis of coronary artery of [place] heart without angina pectoris (Chronic) Carotid artery disease (Chronic) Aortic stenosis (Chronic) New onset atrial fibrillation (Acute) Hypertension (Chronic) Hyperlipidemia (Chronic) Anemia (Acute) Prostatic hypertrophy (Acute) Acid reflux (Chronic) COPD (chronic obstructive pulmonary disease) (Chronic) Colon cancer (Chronic) Allergic rhinitis (Acute) Abnormality of gait (Chronic) Obesity (Chronic) Blood clots in stool (Resolved) Surgical History (Updated 03/24/19 @ 11:07 by BHARTI Johnston) Status post mitral valve repair (Chronic 12/25/18) History of coronary artery bypass graft x 3 (Chronic 12/25/18) History of right and left heart catheterization (Chronic 12/02/18) History of colectomy (Chronic) History of colonoscopy (Chronic 09/30/17) Family History Father , of pneumonia Pneumonia Mother , of CAD CAD (coronary artery disease) Arthritis Sister , Cause unknown Rheumatoid arthritis Oral cancer Sister Arthritis Sister No problems noted. Sister No problems noted. Social History (Updated 03/24/19 @ 11:11 by BHARTI Johnston) Smoking Status: Former smoker quit date: 06/04/96 pack-years: 40 alcohol intake: never substance use type: does not use ROS Const Const: Negative for fatigue, weakness, fever(s) or headache(s) Eyes Eyes: Negative for blind spots, loss of peripheral vision or transient loss of vision ENT ENT: Positive for balance problems; negative for headache(s), dizziness, tinnitus or Nosebleed/epistaxis Cardio Chest Pain: No Palpitations: No Edema: None Muscle aches with walking: None Resp Respiratory: Positive for SOB with activity; negative for SOB at rest, SOB orthopnea\SOB lying down or Cough GI GI: Negative nausea, vomiting, heartburn or vomiting blood/hematemesis : Negative for hematuria Musc Musc: Positive for balance problems; negative for muscle aches/ myalgia Neuro Neuro: Negative for dizziness, lightheadedness, near syncope, syncope, orthostatic symptoms, headache(s) or weakness Ko Hematologic/Lymphatic: Negative for easy bleeding Endo Endo: Negative for fatigue Cardiology Exam Const Appearance: cooperative, no acute distress, well developed and other (ambulates with cane) Orientation: alert, awake and oriented x3 Head Head: normocephalic and atraumatic Mouth: moist mucous membranes Eyes General: appearance normal, both eyes and all related structures Conjunctivae: conjunctivae normal Pupils: PERRL EOM: EOM intact bilaterally Neck Neck: normal visual inspection, no lymphadenopathy and no JVD Carotids: Negative bruit Neck Mass: Negative Neck mass Chest Chest inspection: normal inspection of the chest, symmetric chest movement and midline sternotomy incision Auscultation: Bilateral: Clear to Auscultation Cardio Palpation: normal PMI Rate: regular rate Rhythm: irregularly irregular Heart sounds: S1 normal and S2 normal; negative rub, gallop or murmur GI GI: normal to inspection, soft, no hepatosplenomegaly and bowel sounds present; negative tender Neuro General: alert, awake, oriented x3, CN's II-XI intact bilaterally and moves all extremities Extremities Pulses: Normal: Right Posterior Tibial Pulse, Left Posterior Tibial Pulse, Right Radial Pulse, Left Radial Pulse Lower Extremity Edema: None: Bilateral Psych Psychological: normal affect Assessment & Plan 1. Atherosclerosis of coronary artery of [place] heart without angina pectoris I25.10 NEFF to LAD, SVG to Lateral CX, and SVG to PDA 12/25/[address] Paulino Flores, [facility] Plan Patient does not have any symptoms of angina. He will continue with current aggressive medical management. He will continue with cardiac rehab. Orders Orders: 12 Lead EKG performed by [facility] Today 2. New onset atrial fibrillation I48.91 Plan Patient does have shortness of breath with exertion, feel that this is likely related to his atrial fibrillation. He is scheduled to undergo a cardioversion with Dr. Ruiz on March 21, 2019. Instructions were given to patient. He has been anticoagulated with a therapeutic INR goal of 2-3 for at least 4 weeks. 3. Status post mitral valve repair Z98.890 Mitral Valve repair with [place] band #29 Plan Recent echocardiogram has been reviewed. We will continue to monitor by history, exam and echocardiograms as deemed appropriate. Patient will continue with antibiotic prophylaxis. 4. Hypertension I10 Plan Blood pressure is well controlled on current medications, we do not recommend any changes at this time. 5. Hyperlipidemia E78.5 Plan Patient will continue with current high dose statin. Plan Detail Other Orders Orders: 12 Lead EKG performed by [facility] Z01.810, Z95.1 Additional Comments Thank you for allowing us to participate in patient's plan of care, if you have any questions please do not hesitate to call. This note was generated using a voice recognition system and there may be incorrect words, spelling or punctuation errors that were not noted when reviewing the office note prior to saving. Follow Up 03/24/19 (keep as is) Coding Level of Care Code Off vis,est,level 4 Diagnoses Atherosclerosis of coronary artery of [place] heart without angina pectoris I25.10 New onset atrial fibrillation I48.91 Status post mitral valve repair Z98.890 Hypertension I10 Hyperlipidemia E78.5 Coding Level of Care Code Off vis,est,level 4 Diagnoses Atherosclerosis of coronary artery of [place] heart without angina pectoris I25.10 New onset atrial fibrillation I48.91 Status post mitral valve repair Z98.890 Hypertension I10 Hyperlipidemia E78.5 Supplemental Info Supplemental Information Echocardiogram in 10/2018: The estimated ejection fraction is 60 %. The left atrium is severely enlarged. Trivial mitral valve insufficiency. Unable to estimate RV systolic pressure/pulmonary artery pressure due to technically difficult study. Possible immobile non coronary cusp. Trivial aortic valve insufficiency. Compared to echo report dated 03/14/2008, LV function has remained the same. Mild aortic stenosis. Pt appears to be in atrial fibrillation. The study was technically difficult. Contrast injection was performed. Modified stress echocardiogram was noted to be abnormal. Cardiac cath 11/2018: Triple vessel CAD of the LM, LAD, OMs, RCA. Normal LV size, wall motion,and systolic function Perserved Left Ventricular systolic function with normal EDP LVEF: by LV gram 65 % The patient has normal pulmonary hemodynamics. 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 Diagnostics Electrocardiogram 03/24/19 Cardiac Catheterization 12/02/18 03/24/19 1111 <Electronically signed by Hilary Arias> Date _ Hilary HAY
[2019-03-24 12:17] LABS: International Normalized Ratio 1.9
[2019-03-24 12:39] LABS: Anion Gap 3 (5-15); BUN 24 mg/dL (7-18); BUN/Creat Ratio 20.7 RATIO (10-20); Calcium,Total 9.7 mg/dL (8.5-10.1); Chloride 110 mmol/L (98-107); Creatinine, Serum 1.16 mg/dL (0.70-1.30); EST Glomerular Filtration Rate 64 mL/min (>60); Est Glom Filt Rate - Afr Amer 77 mL/min (>60); Glucose 85 mg/dL (74-106); Sodium Level 139 mmol/L (136-145)
[2019-04-23 10:20] LABS: Prothrombin Time Fingerstick 31.9 SEC (11.9-14.4)
--- NOTE | 2019-04-23 12:50 | PRO.PCM_ITS ---
Procedure Report Date of Procedure: 04/23/19 CONSCIOUS SEDATION REPORT DATE OF SERVICE: April 23, 2019 BRIEF HISTORY OF PRESENT ILLNESS: The patient is an 83-year-old male who presented to [facility] for an elective outpatient cardioversion due to underlying atrial fibrillation. The patient is currently anticoagulated on Coumadin with an INR of 2.8. His last surface echocardiogram revealed an ejection fraction of approximately 60%. The patient is a former smoker, but is never been diagnosed with COPD or asthma. In addition, the patient has never been diagnosed with obstructive sleep apnea. He denies any previous anesthetic complications. PHYSICAL EXAMINATION: VITAL SIGNS: Reviewed and were acceptable. GENERAL: The patient is a male, in no apparent distress, speaking in full sentences. HEENT: Normocephalic, atraumatic. Mucous membranes are moist and pink. Good mouth opening noted. Trachea is midline. Good neck mobility. CHEST: S1, S2 irregularly irregular. No murmurs, rubs or gallops were noted. LUNGS: Clear to auscultation bilaterally without appreciable wheezes, rales or rhonchi. ABDOMEN: Soft, nontender, nondistended. Positive bowel sounds. EXTREMITIES: There is no clubbing, cyanosis or edema. ASA Class: II DESCRIPTION OF PROCEDURE: After confirmation of informed consent, the patient's anesthesia plan was reviewed in detail. Propofol was chosen. Risks and benefits were reviewed and the patient agreed to proceed. At 1218, the patient was given 40 mg of propofol. The patient achieved an appropriate level of sedation and was given a 200 joule synchronized cardioversion by Dr. Ruiz at the bedside. This was successful in achieving normal sinus rhythm. The patient was monitored until 1228, at which time he reached his baseline mental status and function. The patient tolerated the procedure well. COMPLICATIONS: None ESTIMATED BLOOD LOSS: None RECOMMENDATIONS: Okay to recover in usual fashion. Code Visit 9xxxx: Other Procedure See Report - [id number]
--- NOTE | 2019-04-23 15:28 | CARDIOVERS ---
Cardioversion Cardioversion: DC cardioversion report: The patient was brought to the cardiac Security Operations Engineer holding area in the fasting state. The risks/benefits of the procedure were thoroughly explained the patient and informed consent was obtained. The defibrillator pads were placed in the AP position. With the assistance of Dr. Marcos Manning the patient received a total of 40 mg of IV propofol. Once adequate sedation was obtained the patient received a single biphasic 200 J synchronized shock which converted from atrial fibrillation to sinus bradycardia. This rhythm remained durable, and the pacer pads were removed. The patient spontaneously awoke, moves all 4 extremities, and tolerated the procedure well. Conclusions: Successful DC cardioversion from atrial fibrillation to sinus bradycardia. Patient will continue his medications as outlined in the MRF. He will return in 1 week's time for an EKG per protocol. Should the patient revert back to atrial fibrillation we may consider amiodarone assisted DC cardioversion in the future. Patient tolerated procedure well. No complications. Many thanks to Dr. Marcos Manning for his assistance.
== END 2019-04-23 13:28 | disposition home or self-care (01) ==
PROVIDERS: Family Provider Family Medicine; PCP Family Medicine; Referring Provider Internal Medicine Cardiovascular Disease; Visit Provider Internal Medicine Cardiovascular Disease
DX: I48.91 Unspecified atrial fibrillation (principal); I25.10 Atherosclerotic heart disease of native coronary artery without angina pectoris; I35.0 Nonrheumatic aortic (valve) stenosis; I10 Essential (primary) hypertension; E78.5 Hyperlipidemia, unspecified; J44.9 Chronic obstructive pulmonary disease, unspecified; K21.9 Gastro-esophageal reflux disease without esophagitis; N40.0 Benign prostatic hyperplasia without lower urinary tract symptoms; E66.9 Obesity, unspecified; Z79.01 Long term (current) use of anticoagulants; Z79.82 Long term (current) use of aspirin; Z79.891 Long term (current) use of opiate analgesic; Z79.899 Other long term (current) drug therapy; Z87.891 Personal history of nicotine dependence; Z95.1 Presence of aortocoronary bypass graft
CPT/HCPCS: 36415; 36416; 80048; 85610; 92960; 93005; J7040

== ENCOUNTER 2019-04-26 14:15 | Outpatient (RCR) | payer MEDICARE, OTHER, SELFPAY ==
[2019-03-24 10:14] VITALS: BMI 30.1
[2019-04-02 00:21] VITALS: BP 114/80; BP 124/70
--- NOTE | 2019-04-28 13:50 | PCM.CR.ITP ---
Exercise - 90-Day Assessment - Visit Date of Eval: 04/28/19 - Stages of Change Stages of Change:: Action - Physician Prescribed Exercise Modalities: Treadmill, NuStep, SciFit Frequency (days/week): 3 Duration (Minutes):: 30-45 Intensity: 60-80% age predicted maximum heart rate reserve METs - Progression: 0.5-1.0 MET, RPE 11-14 WEEK: 4.0 Target Heart Rate:: 90-116 W/MAX HR 128; AFIB - Hypertension Resting Blood Pressure:: 104/52 Peak Exercise Blood Pressure:: 118/54 Medication Changes:: Yes - Intervention Home Exercise/Activity Goal:: Moderate Exercise 30 min/day x 5 days/wk - Education Goals:: Warm-up, RPE DANA Scale, S/S, Safe Exercise, Self-Monitoring Nutrition - 90-Day Assessment - Program Goals Nutrition Program Goals: LDL <70. Total Cholesterol <200. HDL >45. Triglycerides <150. HgbA1C <7%. BMI <25 - Visit Date of Eval: 04/28/19 - Stages of Change Stages of Change:: Action - Lipids Has the patient seen the dietitian?: No - Diabetes Diabetes:: No Insulin: No Non-Insulin Dependent?: No - Weight Management Weight:: 224 lb 8 oz - Intervention Referral to dietitian:: No Referral to Diabetic Clinic:: No Will attend diet classes:: Yes - Education Attended class for:: Healthy eating Tobacco - Initial Assessment - Program Goals Tobacco Program Goals: Complete smoking cessation. Attend education classes. Improve Knowledge Test score - Learning Barriers Learning Barriers: Vision - glasses, Ready to Learn Tobacco - 90-Day Assessment - Program Goals Tobacco Program Goals: Complete smoking cessation. Attend education classes. Improve Knowledge Test score - Stage of Change Stages of Change:: Action - Learning Barriers Learning Barriers: Participates in education, Change in behavior - Family Support Do you have family support?: Yes - Tobacco Use Tobacco Use: Non-smoker Do you use smokeless tobacco?: No - Intervention Smoking Cessation Referral:: No Individual Education/Counseling:: No Education Schedule Given:: Yes - Education Attended class for:: Treating Heart Disease, How The Heart Works, What it means to have Heart Disease, How Coronary Artery Disease is Diagnosed, Heart Procedures, What Heart Medications Do, Risk Factors & Modifications, Living an Active Life, Nutrition, Emotions & Heart Disease, Stress Management & Relaxation, Sleep Disorders & Heart Disease Psychosocial - Initial Assess - Target Goals Target Goals: Assess presence or absence of depression. Using a valid screening tool, maximizes coping skills. Positive support system - Psychosocial Test Tool Used:: HANDS Depression Questionnaire - Assistive Devices Fall Risk Assessed:: Yes Psychosocial - 90-Day Assess - Target Goals Target Goals: Assess presence or absence of depression. Using a valid screening tool, maximizes coping skills. Positive support system - Stages of Change Stages of Change:: Action - Psychosocial Test Tool Used:: HANDS Depression Questionnaire Test Scores: Mood Scale Test - Intervention PS - Interventions: Yes Attend Stress Management Classes, Yes Uses Stress Management Skills, No Referral to Mental Health, No Referral to [facility] Case Management, No Referral to Physician - Education Attended classes for:: Coping techniques, Signs & symptoms of depression, Stress management, Relaxation techniques - Patient/Program Goal Preventative Medication(s):: Aspirin, NILSON inhibitor, Clopidogrel, Beta mack, Statin/lipid - Assistive Devices Assistive Devices:: None, Cane - ON OCCASION DEPENDING ON HIP PAIN. Patient Health Questionnaire 90-Day Re-eval Assessment 1. Little interest or pleasure in doing things: Several days 2. Feeling down, depressed, or hopeless: Not at all 3. Trouble falling or staying asleep, or sleeping too much: Several days 4. Feeling tired or having little energy: Several days 5. Poor appetite or overeating: Not at all 6. Feeling bad about yourself -- or that you are a failure or have let yourself or your family down: Not at all 7. Trouble concentrating on things, such as reading the newspaper or watching television: Not at all 8. Moving or speaking so slowly that other people could have noticed. Or the opposite - being so fidgety or restless that you have been moving around a lot more than usual: Not at all 9. Thoughts that you would be better off , or of hurting yourself in some way: Not at all How difficult have these problems made it for you to do your work, take care of things at home, or get along with other people?: Not difficult at all Total Score: 3 Self-Efficacy 90-Day Re-eval Assessment We would like to know how confident you are in doing certain activities. Please select your confidence level for:: Select your confidence level for the following using the scale 1-10 where 1 is not at all confident and 10 is totally confident. Your score is the average of all 6 responses. Fatigue: How confident are you that you can keep the fatigue caused by your disease from interfering with the things you want to do? Select Number: 9 Physical Discomfort or Pain: How confident are you that you can keep the physical discomfort or pain of your disease from interfering with the things you want to do? Select Number: 10 Emotional Distress: How confident are you that you can keep the emotional distress caused by your disease from interfering with the things you want to do? Select Number: 9 Other Symptoms or Health Problems: How confident are you that you can keep other symptoms or health problems from interfering with the things you want to do? Select Number: 8 Different Tasks and Activities: How confident are you that you can do the different tasks and activities needed to manage your health condition so as to reduce your need to see a doctor? Select Number: 10 Medication: How confident are you that you can do things other than just taking medication to reduce how much your illness affects your everyday life? Select Number: 10 Total Score:: 9
[2019-04-28 13:54] VITALS: BP 104/52; BP 118/54
== END 2019-05-01 23:59 ==
LOC: CR 14:15
PROVIDERS: Family Provider Family Medicine; PCP Family Medicine; Referring Provider Internal Medicine Cardiovascular Disease; Visit Provider Internal Medicine Cardiovascular Disease
DX: Z95.1 Presence of aortocoronary bypass graft (principal); I25.10 Atherosclerotic heart disease of native coronary artery without angina pectoris; Z98.890 Other specified postprocedural states
CPT/HCPCS: 93798

== ENCOUNTER 2019-04-30 10:07 | Outpatient (RCR) | payer MEDICARE, OTHER, SELFPAY ==
[2019-03-24 10:14] VITALS: BMI 30.1
[2019-04-07 12:51] LABS: Prothrombin Time (Protime)PT. 22.3 SECONDS (11.7-14.9)
[2019-04-14 12:43] LABS: Prothrombin Time (Protime)PT. 22.4 SECONDS (11.7-14.9)
[2019-04-21 13:00] LABS: International Normalized Ratio 2.9; Prothrombin Time (Protime)PT. 30.6 SECONDS (11.7-14.9)
[2019-04-21 13:13] LABS: Anion Gap 3 (5-15); BUN 22 mg/dL (7-18); BUN/Creat Ratio 20.2 RATIO (10-20); Calcium,Total 9.5 mg/dL (8.5-10.1); Chloride 111 mmol/L (98-107); Creatinine, Serum 1.09 mg/dL (0.70-1.30); EST Glomerular Filtration Rate 69 mL/min (>60); Est Glom Filt Rate - Afr Amer 83 mL/min (>60); Glucose 81 mg/dL (74-106); Potassium 4.1 mmol/L (3.5-5.1); Sodium Level 141 mmol/L (136-145)
[2019-04-30 10:45] LABS: International Normalized Ratio 3.3; Prothrombin Time (Protime)PT. 33.7 SECONDS (11.7-14.9)
== END 2019-04-30 18:00 | disposition home or self-care (01) ==
LOC: LAB 10:07
PROVIDERS: Family Provider Family Medicine; PCP Family Medicine; Referring Provider Internal Medicine Cardiovascular Disease; Visit Provider Internal Medicine Cardiovascular Disease
DX: Z79.01 Long term (current) use of anticoagulants (principal)
CPT/HCPCS: 36415; 80048; 85610

== ENCOUNTER 2019-05-03 10:16 | Outpatient (RCR) | payer MEDICARE, OTHER, SELFPAY ==
[2019-04-28 13:55] VITALS: BMI 30.1
[2019-05-02 00:19] VITALS: BP 104/52; BP 118/54
== END 2019-06-01 23:59 ==
LOC: CR 10:16
PROVIDERS: Family Provider Family Medicine; PCP Family Medicine; Referring Provider Internal Medicine Cardiovascular Disease; Visit Provider Internal Medicine Cardiovascular Disease
DX: Z95.1 Presence of aortocoronary bypass graft (principal); I25.10 Atherosclerotic heart disease of native coronary artery without angina pectoris; Z98.890 Other specified postprocedural states
CPT/HCPCS: 93798

== ENCOUNTER 2019-05-21 08:31 | Outpatient (RCR) | payer MEDICARE, OTHER, SELFPAY ==
[2019-04-28 13:55] VITALS: BMI 30.1
[2019-05-07 11:37] LABS: International Normalized Ratio 2.6; Prothrombin Time (Protime)PT. 27.7 SECONDS (11.7-14.9)
[2019-05-14 10:42] LABS: International Normalized Ratio 2.3; Prothrombin Time (Protime)PT. 25.5 SECONDS (11.7-14.9)
[2019-05-21 09:09] LABS: AST(SGOT) 16 U/L (15-37); Alanine Aminotransfer ALT/SGPT 16 U/L (16-61); Albumin, Serum 3.1 g/dL (3.2-5.0); Alkaline Phosphatase 111 U/L (45-117); Bilirubin, Direct 0.29 mg/dL (0.00-0.30); Cholesterol 72 mg/dL (200); Globulin 3.6 g/dL (2.2-4.2); High Density Lipoprotein 37 mg/dL; Protein, Total 6.7 g/dL (6.4-8.2); Triglycerides 86 mg/dL; Very Low Density Lipoprotein 17 mg/dL (5-40)
[2019-05-21 09:19] LABS: International Normalized Ratio 2.3; Prothrombin Time (Protime)PT. 24.9 SECONDS (11.7-14.9)
== END 2019-05-21 18:00 | disposition home or self-care (01) ==
LOC: LAB 08:31
PROVIDERS: Physician Assistant Medical; Family Provider Family Medicine; PCP Family Medicine; Referring Provider Internal Medicine Cardiovascular Disease; Visit Provider Internal Medicine Cardiovascular Disease
DX: Z79.01 Long term (current) use of anticoagulants (principal); E78.5 Hyperlipidemia, unspecified
CPT/HCPCS: 36415; 80061; 80076; 85610

== ENCOUNTER 2019-05-31 08:17 | Day surgery (SDC) | payer MEDICARE, OTHER, SELFPAY ==
[2019-05-07 10:47] VITALS: BMI 30.9
[2019-05-28 09:10] LABS: International Normalized Ratio 2.1; Prothrombin Time (Protime)PT. 23.1 SECONDS (11.7-14.9)
[2019-05-28 09:19] LABS: Anion Gap 5 (5-15); BUN 22 mg/dL (7-18); BUN/Creat Ratio 17.9 RATIO (10-20); Calcium,Total 9.2 mg/dL (8.5-10.1); Chloride 109 mmol/L (98-107); Creatinine, Serum 1.23 mg/dL (0.70-1.30); EST Glomerular Filtration Rate 60 mL/min (>60); Est Glom Filt Rate - Afr Amer 72 mL/min (>60); Glucose 87 mg/dL (74-106); Potassium 4.5 mmol/L (3.5-5.1); Sodium Level 141 mmol/L (136-145)
[2019-05-28 10:26] VITALS: BMI 30.9
--- NOTE | 2019-05-31 11:10 | CARDIOVERS ---
Cardioversion Cardioversion: DC cardioversion summary: Patient is an 83-year-old gentleman with a history of hypertension, hypercholesterolemia, coronary disease status post multivessel bypass surgery with a history of atrial fibrillation with previous DC cardioversion several months ago which was initially successful but then reverted back to atrial fibrillation. The patient was loaded with amiodarone by mouth for the last several weeks and is maintained on Coumadin without interruption. The patient now returns for elective DC cardioversion. The risk/benefits of the procedure were thoroughly explained to the patient and informed consent was obtained. The defibrillator pads were placed in the AP position. With the assistance of Dr. Marcos Manning patient received 40 mg of propofol. Once adequate sedation was obtained, the patient received a single biphasic synchronized 200 J shock which converted him from atrial fibrillation to sinus bradycardia. His rhythm remained durable, and he spontaneously awoke, move all 4 extremities and tolerated procedure well. Conclusions: Successful amiodarone and Coumadin assisted DC cardioversion with a single 200 J biphasic synchronized shock which converted him from atrial fibrillation to sinus bradycardia. The patient will maintain on current medical therapies as outlined in the MRF. Patient tolerated procedure well. Awoke spontaneously, moves all 4 extremities and many thanks to Dr. Marcos Manning for his assistance.
--- NOTE | 2019-05-31 12:43 | PRO.PCM_ITS ---
Procedure Report Date of Procedure: 05/31/19 CONSCIOUS SEDATION REPORT DATE OF SERVICE: May 31, 2019 BRIEF HISTORY OF PRESENT ILLNESS: The patient is an 83-year-old male who presented to [facility] for an elective outpatient cardioversion due to underlying atrial fibrillation. The patient is currently anticoagulated on Coumadin with an INR of 2.0. His last surface echocardiogram revealed an ejection fraction of approximately 60%. The patient is a former smoker, but is never been diagnosed with COPD or asthma. In addition, the patient has never been diagnosed with obstructive sleep apnea. He denies any previous anesthetic complications. The patient did undergo a previous cardioversion in April 2019, during which time, he required 40 mg of propofol to achieve an appropriate level of sedation. PHYSICAL EXAMINATION: VITAL SIGNS: Reviewed and were acceptable. GENERAL: The patient is a male, in no apparent distress, speaking in full sentences. HEENT: Normocephalic, atraumatic. Mucous membranes are moist and pink. Good mouth opening noted. Trachea is midline. Good neck mobility. CHEST: S1, S2 irregularly irregular. No murmurs, rubs or gallops were noted. LUNGS: Clear to auscultation bilaterally without appreciable wheezes, rales or rhonchi. ABDOMEN: Soft, nontender, nondistended. Positive bowel sounds. EXTREMITIES: There is no clubbing, cyanosis or edema. ASA Class: II DESCRIPTION OF PROCEDURE: After confirmation of informed consent, the patient's anesthesia plan was review ed in detail. Propofol was chosen. Risks and benefits were reviewed and the patient agreed to proceed. At 1034, the patient was given 40 mg of propofol. The patient achieved an appropriate level of sedation and was given a 200 joule synchronized cardioversion by Dr. Ruiz at the bedside. This was successful in achieving normal sinus rhythm. The patient was monitored until 1044, at which time he reached his baseline mental status and function. The patient tolerated the procedure well. COMPLICATIONS: None ESTIMATED BLOOD LOSS: None RECOMMENDATIONS: Okay to recover in usual fashion. Code Visit 9xxxx: Other Procedure See Report - [id number]
== END 2019-05-31 11:49 | disposition home or self-care (01) ==
PROVIDERS: Family Provider Family Medicine; PCP Family Medicine; Referring Provider Internal Medicine Cardiovascular Disease; Visit Provider Internal Medicine Cardiovascular Disease
DX: I48.91 Unspecified atrial fibrillation (principal); I25.10 Atherosclerotic heart disease of native coronary artery without angina pectoris; J44.9 Chronic obstructive pulmonary disease, unspecified; I10 Essential (primary) hypertension; E78.00 Pure hypercholesterolemia, unspecified; K21.9 Gastro-esophageal reflux disease without esophagitis; N40.0 Benign prostatic hyperplasia without lower urinary tract symptoms; E66.9 Obesity, unspecified; Z79.01 Long term (current) use of anticoagulants; Z79.82 Long term (current) use of aspirin; Z79.899 Other long term (current) drug therapy; Z85.038 Personal history of other malignant neoplasm of large intestine; Z87.891 Personal history of nicotine dependence; Z95.1 Presence of aortocoronary bypass graft
CPT/HCPCS: 36415; 36416; 80048; 85610; 92960; 93005; J7040

== ENCOUNTER 2019-07-02 09:43 | Outpatient (RCR) | payer MEDICARE, OTHER, SELFPAY ==
[2019-05-28 10:26] VITALS: BMI 30.9
[2019-06-04 12:02] LABS: International Normalized Ratio 2.3; Prothrombin Time (Protime)PT. 25.4 SECONDS (11.7-14.9)
[2019-06-18 09:55] LABS: International Normalized Ratio 3.2; Prothrombin Time (Protime)PT. 33.1 SECONDS (11.7-14.9)
[2019-06-25 10:23] LABS: Prothrombin Time (Protime)PT. 35.9 SECONDS (11.7-14.9)
[2019-06-25 10:25] LABS: International Normalized Ratio 3.6
[2019-07-02 10:07] LABS: International Normalized Ratio 3.9; Prothrombin Time (Protime)PT. 38.8 SECONDS (11.7-14.9)
== END 2019-07-02 18:00 | disposition home or self-care (01) ==
LOC: LAB 09:43
PROVIDERS: Family Provider Family Medicine; PCP Family Medicine; Referring Provider Internal Medicine Cardiovascular Disease; Visit Provider Internal Medicine Cardiovascular Disease
DX: Z79.01 Long term (current) use of anticoagulants (principal)
CPT/HCPCS: 36415; 85610

== ENCOUNTER 2019-07-30 09:54 | Outpatient (RCR) | payer MEDICARE, OTHER, SELFPAY ==
[2019-06-07 12:48] VITALS: BMI 30.9
[2019-07-09 11:53] LABS: International Normalized Ratio 2.3; Prothrombin Time (Protime)PT. 25.3 SECONDS (11.7-14.9)
[2019-07-23 09:04] LABS: International Normalized Ratio 2.6; Prothrombin Time (Protime)PT. 27.6 SECONDS (11.7-14.9)
[2019-07-30 10:42] LABS: International Normalized Ratio 2.1; Prothrombin Time (Protime)PT. 23.2 SECONDS (11.7-14.9)
== END 2019-07-30 18:00 | disposition home or self-care (01) ==
LOC: LAB 09:54
PROVIDERS: Family Provider Family Medicine; PCP Family Medicine; Referring Provider Internal Medicine Cardiovascular Disease; Visit Provider Internal Medicine Cardiovascular Disease
DX: Z79.01 Long term (current) use of anticoagulants (principal)
CPT/HCPCS: 36415; 85610

== ENCOUNTER 2019-08-20 10:43 | Outpatient (RCR) | payer MEDICARE, OTHER, SELFPAY ==
[2019-06-07 12:48] VITALS: BMI 30.9
[2019-08-20 11:49] LABS: International Normalized Ratio 2.6; Prothrombin Time (Protime)PT. 28.1 SECONDS (11.7-14.9)
== END 2019-08-20 18:00 | disposition home or self-care (01) ==
LOC: LAB 10:43
PROVIDERS: Family Provider Family Medicine; PCP Family Medicine; Referring Provider Internal Medicine Cardiovascular Disease; Visit Provider Internal Medicine Cardiovascular Disease
DX: Z79.01 Long term (current) use of anticoagulants (principal)
CPT/HCPCS: 36415; 85610

== ENCOUNTER 2019-09-24 09:55 | Outpatient (RCR) | payer MEDICARE, OTHER, SELFPAY ==
[2019-06-07 12:48] VITALS: BMI 30.9
[2019-09-10 10:13] LABS: Prothrombin Time (Protime)PT. 37.1 SECONDS (11.7-14.9)
[2019-09-10 10:25] LABS: International Normalized Ratio 3.8
[2019-09-24 10:56] LABS: Prothrombin Time (Protime)PT. 30.9 SECONDS (11.7-14.9)
[2019-09-24 11:07] LABS: Free T3 2.3 pg/mL (2.18-3.98); T4 Free Direct 0.82 ng/dL (0.76-1.46)
== END 2019-09-30 18:00 | disposition home or self-care (01) ==
LOC: LAB 09:55
PROVIDERS: Physician Assistant Medical; Family Provider Family Medicine; PCP Family Medicine; Referring Provider Internal Medicine Cardiovascular Disease; Visit Provider Internal Medicine Cardiovascular Disease
DX: R79.89 Other specified abnormal findings of blood chemistry (principal); Z79.01 Long term (current) use of anticoagulants; E53.8 Deficiency of other specified B group vitamins; R06.00 Dyspnea, unspecified; I48.91 Unspecified atrial fibrillation
CPT/HCPCS: 36415; 84439; 84443; 84481; 85610

== ENCOUNTER → 2019-10-20 15:55 | Outpatient (CLI) | payer MEDICARE, OTHER, SELFPAY ==
[2019-09-16 10:02] VITALS: BMI 30.9
--- NOTE | 2019-10-20 16:16 | RAD_ITS ---
STUDY: X-RAY CHEST REASON FOR EXAM: Male, 84 years old. Pleural effusion -- pt states he gets tired TECHNIQUE: PA and lateral views of the chest on 3 films. COMPARISON: Frontal chest x-ray November 23, 2018 FINDINGS: Right apical pleural capping, thickening of the lateral inferior right pleural stripe, and some elevation of right diaphragm are unchanged. Minor focal thickening of the left lateral pleural stripe also noted. There are stranding densities in the bilateral lung bases consistent with mild scarring. No acute consolidation. There is no demonstrated pleural abnormality. Normal size heart. A mitral valve prosthesis is again noted. Sternal cerclage wires and vascular clips are present from a prior sternotomy and coronary artery bypass graft procedure (CABG). Normal mediastinum and megan. Normal visualized biapical pulmonary arteries. There is mild atherosclerotic calcification of the aortic arch and descending thoracic aorta. There are stable multilevel degenerative changes of the visualized thoracic spine. Normal visualized ribs, clavicles, and shoulders. There is no demonstrated abnormality of the visualized soft tissue structures of the upper abdomen. RAD/Chest PA and Lateral IMPRESSION: Stable x-ray examination of the chest, as described. Electronically Signed: Ben Rose MD at 16:47 EDT , Service support ,
[2019-10-20 18:08] LABS: Absolute Lymphocyte Count 0.93 X10^3/uL (0.83-4.51); Basophil# 0.03 X10^3/uL; Basophil% 0.6 % (0-1); Eosinophils% 6.3 % (0-5); Hematocrit 26.9 % (40-54); Hemoglobin 7.7 g/dL (13.0-16.5); Lymphocyte # 0.93 X10^3/ul (4.0); Lymphocyte % 19.6 % (19-41); Mean Corp Hgb Conc 28.6 g/dL (32-36); Mean Corpuscular Hgb 24.8 pg (27.0-32.0); Mean Corpuscular Volume 86.8 fL (80-94); Mean Platelet Vol. 11.6 fl (6.2-12.0); Monocyte# 0.45 X10^3/uL; Monocyte% 9.5 % (0-10); NRBC Flagged by Analyzer 0 % (0-5); Neutrophil % 63.4 % (47-70); Platelet Count 213 K/mm3 (150-450); RBC Distribution Width CV 17.1 % (11.6-14.6); RBC Distribution Width SD 54.1 fl (35.1-43.9); White Blood Count 4.7 K/mm3 (4.4-11.0)
[2019-10-20 18:24] LABS: Vitamin B12 497 pg/mL (211-911)
[2019-10-20 18:36] LABS: ALB/GLOB Ratio 0.6 RATIO (0.9-2.4); AST(SGOT) 19 U/L (15-37); Alanine Aminotransfer ALT/SGPT 19 U/L (16-61); Albumin, Serum 2.6 g/dL (3.2-5.0); Alkaline Phosphatase 107 U/L (45-117); Anion Gap 6 (5-15); BUN 26 mg/dL (7-18); BUN/Creat Ratio 18.8 RATIO (10-20); Calcium,Total 9.1 mg/dL (8.5-10.1); Chloride 108 mmol/L (98-107); Creatinine, Serum 1.38 mg/dL (0.70-1.30); EST Glomerular Filtration Rate 52 mL/min (>60); Est Glom Filt Rate - Afr Amer 63 mL/min (>60); Ferritin 15 ng/mL (26-388); Free T3 1.8 pg/mL (2.18-3.98); Glucose 100 mg/dL (74-106); Magnesium 1.9 mg/dL (1.6-2.6); Potassium 4.4 mmol/L (3.5-5.1); Protein, Total 6.6 g/dL (6.4-8.2); Sodium Level 139 mmol/L (136-145); T4 Free Direct 1.28 ng/dL (0.76-1.46)
== END ==
PROVIDERS: PCP Family Medicine; Referring Provider Family Medicine; Visit Provider Family Medicine
DX: I48.91 Unspecified atrial fibrillation (principal); J90 Pleural effusion, not elsewhere classified; D64.9 Anemia, unspecified; E53.8 Deficiency of other specified B group vitamins; R53.83 Other fatigue
CPT/HCPCS: 36415; 71046; 80053; 82607; 82728; 82746; 83735; 84439; 84443; 84481; 85025

== ENCOUNTER 2019-11-12 08:10 | Outpatient (RCR) | payer MEDICARE, OTHER, SELFPAY ==
[2019-09-16 10:02] VITALS: BMI 30.9
[2019-10-01 09:58] LABS: International Normalized Ratio 2.5; Prothrombin Time (Protime)PT. 26.5 SECONDS (11.7-14.9)
[2019-10-22 08:54] LABS: Prothrombin Time (Protime)PT. 22.5 SECONDS (11.7-14.9)
[2019-10-22 09:12] LABS: T4 Total, Thyroxin 11.3 ug/dL (4.5-12.1)
[2019-11-12 08:55] LABS: International Normalized Ratio 2.1; Prothrombin Time (Protime)PT. 23.3 SECONDS (11.7-14.9)
[2019-11-12 09:05] LABS: Thyroid Stim Hormone (TSH) 8.28 uIU/mL (0.358-3.74)
== END 2019-11-12 18:00 | disposition home or self-care (01) ==
LOC: LAB 08:10
PROVIDERS: Physician Assistant Medical; Family Provider Family Medicine; PCP Family Medicine; Referring Provider Internal Medicine Cardiovascular Disease; Visit Provider Internal Medicine Cardiovascular Disease
DX: E03.9 Hypothyroidism, unspecified (principal); Z79.01 Long term (current) use of anticoagulants; Z79.899 Other long term (current) drug therapy
CPT/HCPCS: 36415; 84436; 84443; 85610

== ENCOUNTER 2019-12-10 07:59 | Outpatient (RCR) | payer MEDICARE, OTHER, SELFPAY ==
[2019-09-16 10:02] VITALS: BMI 30.9
[2019-12-10 08:31] LABS: Absolute Lymphocyte Count 1.09 X10^3/uL (0.83-4.51); Absolute Neutrophil Count 3.3 X10^3/uL (2.0-7.7); Basophil# 0.04 X10^3/uL; Basophil% 0.7 % (0-1); Eosinophil# 0.39 X10^3/uL; Eosinophils% 7.2 % (0-5); Hematocrit 25.5 % (40-54); Lymphocyte # 1.09 X10^3/ul (4.0); Lymphocyte % 20.1 % (19-41); Mean Corp Hgb Conc 27.5 g/dL (32-36); Mean Corpuscular Volume 83.6 fL (80-94); Mean Platelet Vol. 10.8 fl (6.2-12.0); Monocyte# 0.54 X10^3/uL; NRBC Flagged by Analyzer 0 % (0-5); Neutrophil # 3.33 X10^3/uL (2.7-7.7); Neutrophil % 61.6 % (47-70); Platelet Count 191 K/mm3 (150-450); RBC Distribution Width CV 18.9 % (11.6-14.6); RBC Distribution Width SD 56.2 fl (35.1-43.9); Red Blood Count 3.05 M/mm3 (4.6-6.2); White Blood Count 5.4 K/mm3 (4.4-11.0)
[2019-12-10 09:06] LABS: Thyroid Stim Hormone (TSH) 8.19 uIU/mL (0.358-3.74)
[2019-12-10 09:07] LABS: Ferritin 12 ng/mL (26-388); Free T3 1.8 pg/mL (2.18-3.98); Iron 25 ug/dL (65-175); Iron Binding Capacity,Total 326 ug/dL (250-450); T4 Free Direct 1.32 ng/dL (0.76-1.46)
[2019-12-10 09:10] LABS: International Normalized Ratio 2.3
== END 2019-12-10 18:00 | disposition home or self-care (01) ==
LOC: LAB 07:59
PROVIDERS: Physician Assistant Medical; Family Provider Family Medicine; PCP Family Medicine; Referring Provider Internal Medicine Cardiovascular Disease; Visit Provider Internal Medicine Cardiovascular Disease
DX: R79.89 Other specified abnormal findings of blood chemistry (principal); E53.8 Deficiency of other specified B group vitamins; D64.9 Anemia, unspecified; I48.0 Paroxysmal atrial fibrillation; E03.9 Hypothyroidism, unspecified; Z79.01 Long term (current) use of anticoagulants; R53.83 Other fatigue
CPT/HCPCS: 36415; 82728; 82746; 83540; 83550; 84439; 84443; 84481; 85025; 85610

== ENCOUNTER 2020-01-07 07:49 | Outpatient (RCR) | payer MEDICARE, OTHER, SELFPAY ==
[2019-09-16 10:02] VITALS: BMI 30.9
[2020-01-07 08:25] LABS: International Normalized Ratio 2.3; Prothrombin Time (Protime)PT. 24.7 SECONDS (11.7-14.9)
[2020-01-07 08:34] LABS: Thyroid Stim Hormone (TSH) 7.82 uIU/mL (0.358-3.74)
== END 2020-01-07 18:00 | disposition home or self-care (01) ==
LOC: LAB 07:49
PROVIDERS: Physician Assistant Medical; Family Provider Family Medicine; PCP Family Medicine; Referring Provider Internal Medicine Cardiovascular Disease; Visit Provider Internal Medicine Cardiovascular Disease
DX: E03.9 Hypothyroidism, unspecified (principal); Z79.01 Long term (current) use of anticoagulants; Z79.899 Other long term (current) drug therapy
CPT/HCPCS: 36415; 84443; 85610

== ENCOUNTER → 2020-02-03 12:26 | Outpatient (CLI) | payer MEDICARE, OTHER, SELFPAY ==
[2020-01-19 11:17] VITALS: BMI 34.0
--- NOTE | 2020-02-03 12:27 | ECHOD_ITS ---
Reason For Study: CHF Procedure This was a 2D Doppler, Color Flow transthoracic echocardiogram. Exam performed in department. Left Ventricle Normal LV size. The estimated ejection fraction is 60 %. No evidence for diastolic dysfunction. No regional wall motion abnormalities noted. Right Ventricle Normal RV size. Normal systolic function. Atria The left atrium is severely enlarged. Normal right atrium. No doppler evidence for ASD. Mitral Valve Mild mitral valve stenosis. Trivial mitral valve insufficiency. Tricuspid Valve There is no tricuspid stenosis. Trivial tricuspid valve insufficiency. Pulmonary artery systolic pressure is 30 mmHg. Aortic Valve Mild aortic stenosis. No aortic valve insufficiency. Pulmonic Valve There is no pulmonic valvular stenosis. No pulmonic valve insufficiency. Great Vessels Normal aortic root. Pericardium/Pleural No pericardial effusion. MMode/2D Measurements & Calculations LVIDd: 4.2 cm IVSd: 1.3 cm Ao root diam: 2.9 cm LVIDs: 2.9 cm LVPWd: 1.4 cm RVDd: 3.8 cm FS: 30.9 % LAV(MOD-bp): 88.9 ml LVAd ap4: 22.7 cm2 SV(MOD-sp4): 31.1 ml LAV(MOD-bp) Indexed: 38.3 ml/m2 EDV(MOD-sp4): 56.4 ml LAV(MOD-sp2): 86.4 ml EDV(sp4-el): 56.5 ml LAV(MOD-sp4): 90.5 ml LVAs ap4: 14.5 cm2 ESV(MOD-sp4): 25.3 ml ESV(sp4-el): 25.6 ml EF(MOD-sp4): 55.2 % EF(sp4-el): 54.7 % SV(sp4-el): 30.9 ml LA A4 area: 26.5 cm2 LA dimension(2D): 5.9 cm RA A4 area: 12.1 cm2 Time Measurements MV dec time: 0.16 sec Doppler Measurements & Calculations MV E max dom: 162.0 cm/sec Lat Peak E' Dom: 8.4 cm/sec Med Peak E' Dom: 6.8 cm/sec MV A max dom: 74.4 cm/sec E/E' lat: 19.3 E/E' med: 23.9 MV E/A: 2.2 MV V2 max: 185.9 cm/sec MV P1/2t max dom: 188.1 cm/sec Ao V2 max: 155.6 cm/sec MV max P.8 mmHg MV P1/2t: 72.2 msec Ao max P.8 mmHg MV V2 mean: 96.7 cm/sec Ao V2 mean: 110.6 cm/sec MV mean P.6 mmHg MV dec slope: 762.7 cm/sec2 Ao mean P.3 mmHg MV V2 VTI: 45.8 cm MVA(P1/2t): 3.0 cm2 Ao V2 VTI: 28.1 cm LV V1 max: 96.0 cm/sec PA V2 max: 57.6 cm/sec TR max dom: 252.8 cm/sec LV V1 max P.7 mmHg TR max P.6 mmHg Interpretation Summary The estimated ejection fraction is 60 %. No evidence for diastolic dysfunction. The left atrium is severely enlarged. Trivial mitral valve insufficiency. Mild mitral valve stenosis. Trivial tricuspid valve insufficiency. Mild aortic stenosis. Ordering Physician: Linsey Townsend Referring Physician: Kevin Boogie Performed By: Anushka Ribeiro, RDCS, RVT
== END ==
PROVIDERS: PCP Family Medicine; Referring Provider Specialist; Visit Provider Specialist
DX: I48.0 Paroxysmal atrial fibrillation (principal); I25.10 Atherosclerotic heart disease of native coronary artery without angina pectoris; I50.9 Heart failure, unspecified; E03.9 Hypothyroidism, unspecified; Z79.01 Long term (current) use of anticoagulants; Z79.899 Other long term (current) drug therapy
CPT/HCPCS: 36415; 80048; 85610; 93306

== ENCOUNTER 2020-02-03 13:34 | Outpatient (RCR) | payer MEDICARE, OTHER, SELFPAY ==
[2020-01-19 11:17] VITALS: BMI 34.0
[2020-02-03 14:53] LABS: International Normalized Ratio 2.2; Prothrombin Time (Protime)PT. 23.7 SECONDS (11.7-14.9)
[2020-02-03 15:06] LABS: Anion Gap 3 (5-15); BUN 24 mg/dL (7-18); BUN/Creat Ratio 17.1 RATIO (10-20); Chloride 107 mmol/L (98-107); EST Glomerular Filtration Rate 51 mL/min (>60); Est Glom Filt Rate - Afr Amer 62 mL/min (>60); Glucose 88 mg/dL (74-106); Potassium 3.5 mmol/L (3.5-5.1); Sodium Level 138 mmol/L (136-145)
== END 2020-02-03 23:59 | disposition home or self-care (01) ==
LOC: LAB 13:34
PROVIDERS: Family Provider Family Medicine; PCP Family Medicine; Referring Provider Specialist; Visit Provider Specialist
DX: Z79.01 Long term (current) use of anticoagulants (principal); E03.9 Hypothyroidism, unspecified; Z79.899 Other long term (current) drug therapy
CPT/HCPCS: 36415; 80048; 85610

== ENCOUNTER → 2020-02-10 08:00 | Outpatient (CLI) | payer MEDICARE, OTHER, SELFPAY ==
[2020-01-19 11:17] VITALS: BMI 34.0
[2020-02-10 10:32] LABS: Hematocrit 24.4 % (40-54); Hemoglobin 6.7 g/dL (13.0-16.5); Mean Corp Hgb Conc 27.5 g/dL (32-36); Mean Corpuscular Hgb 21.3 pg (27.0-32.0); Mean Corpuscular Volume 77.7 fL (80-94); Mean Platelet Vol. 10.7 fl (6.2-12.0); Platelet Count 261 K/mm3 (150-450); RBC Distribution Width CV 19.2 % (11.6-14.6); RBC Distribution Width SD 53.8 fl (35.1-43.9); Red Blood Count 3.14 M/mm3 (4.6-6.2); White Blood Count 5.5 K/mm3 (4.4-11.0)
[2020-02-10 11:05] LABS: Thyroid Stim Hormone (TSH) 5.31 uIU/mL (0.358-3.74)
== END ==
PROVIDERS: Anesthesiology; PCP Family Medicine; Referring Provider Urology; Visit Provider Urology
DX: Z01.818 Encounter for other preprocedural examination (principal); Z11.59 Encounter for screening for other viral diseases; N40.1 Benign prostatic hyperplasia with lower urinary tract symptoms; R35.0 Frequency of micturition; R35.1 Nocturia; R33.8 Other retention of urine; R39.12 Poor urinary stream
CPT/HCPCS: 36415; 84443; 85027; 87635; C9803; U0003

== ENCOUNTER → 2020-02-21 14:30 | Outpatient (CLI) | payer MEDICARE, OTHER, SELFPAY ==
[2020-01-19 11:17] VITALS: BMI 34.0
[2020-02-21 17:59] LABS: Absolute Lymphocyte Count 0.77 X10^3/uL (0.83-4.51); Absolute Neutrophil Count 3.5 X10^3/uL (2.0-7.7); Basophil# 0.03 X10^3/uL; Basophil% 0.6 % (0-1); Eosinophil# 0.39 X10^3/uL; Eosinophils% 7.4 % (0-5); Hematocrit 30.1 % (40-54); Hemoglobin 8.4 g/dL (13.0-16.5); Lymphocyte # 0.77 X10^3/ul (4.0); Lymphocyte % 14.6 % (19-41); Mean Corp Hgb Conc 27.9 g/dL (32-36); Mean Corpuscular Hgb 23.1 pg (27.0-32.0); Mean Corpuscular Volume 82.9 fL (80-94); Mean Platelet Vol. 11.7 fl (6.2-12.0); Monocyte# 0.54 X10^3/uL; Monocyte% 10.3 % (0-10); NRBC Flagged by Analyzer 0 % (0-5); Neutrophil % 66.5 % (47-70); POSITIVE MORPHOLOGY YES; Platelet Count 171 K/mm3 (150-450); RBC Distribution Width CV 25.5 % (11.6-14.6); RBC Distribution Width SD 75.9 fl (35.1-43.9); Red Blood Count 3.63 M/mm3 (4.6-6.2); White Blood Count 5.3 K/mm3 (4.4-11.0)
[2020-02-21 18:05] LABS: Differential Indicated SCAN CRITERIA MET
[2020-02-21 18:21] LABS: Differential Comment SCANNED
[2020-02-21 18:54] LABS: ALB/GLOB Ratio 0.7 RATIO (0.9-2.4); AST(SGOT) 40 U/L (15-37); Alanine Aminotransfer ALT/SGPT 36 U/L (16-61); Alkaline Phosphatase 230 U/L (45-117); Anion Gap 7 (5-15); BUN 26 mg/dL (7-18); BUN/Creat Ratio 16.9 RATIO (10-20); Calcium,Total 9.4 mg/dL (8.5-10.1); Chloride 106 mmol/L (98-107); Creatinine, Serum 1.54 mg/dL (0.70-1.30); EST Glomerular Filtration Rate 46 mL/min (>60); Est Glom Filt Rate - Afr Amer 56 mL/min (>60); Globulin 4.1 g/dL (2.2-4.2); Glucose 79 mg/dL (74-106); Magnesium 2.5 mg/dL (1.6-2.6); Potassium 3.9 mmol/L (3.5-5.1); Protein, Total 7.1 g/dL (6.4-8.2); Sodium Level 140 mmol/L (136-145)
== END ==
PROVIDERS: PCP Family Medicine; Referring Provider Family Medicine; Visit Provider Family Medicine
DX: J90 Pleural effusion, not elsewhere classified (principal); D64.9 Anemia, unspecified; E53.8 Deficiency of other specified B group vitamins
CPT/HCPCS: 36415; 80053; 82746; 83735; 85025

== ENCOUNTER 2020-02-25 08:41 | Outpatient (RCR) | payer MEDICARE, OTHER, SELFPAY ==
[2020-01-19 11:17] VITALS: BMI 34.0
[2020-02-18 10:00] LABS: International Normalized Ratio 1.4; Prothrombin Time (Protime)PT. 16.2 SECONDS (11.7-14.9)
[2020-02-18 10:39] LABS: Thyroid Stim Hormone (TSH) 4.51 uIU/mL (0.358-3.74)
[2020-02-25 09:06] LABS: Absolute Lymphocyte Count 0.79 X10^3/uL (0.83-4.51); Absolute Neutrophil Count 3.1 X10^3/uL (2.0-7.7); Basophil# 0.04 X10^3/uL; Basophil% 0.8 % (0-1); Eosinophil# 0.28 X10^3/uL; Eosinophils% 5.9 % (0-5); Hematocrit 31.9 % (40-54); Lymphocyte # 0.79 X10^3/ul (4.0); Lymphocyte % 16.8 % (19-41); Mean Corp Hgb Conc 28.2 g/dL (32-36); Mean Corpuscular Hgb 23.9 pg (27.0-32.0); Mean Corpuscular Volume 84.8 fL (80-94); Mean Platelet Vol. 10.7 fl (6.2-12.0); Monocyte# 0.52 X10^3/uL; NRBC Flagged by Analyzer 0 % (0-5); Neutrophil # 3.06 X10^3/uL (2.7-7.7); Neutrophil % 65.1 % (47-70); POSITIVE MORPHOLOGY YES; Platelet Count 167 K/mm3 (150-450); RBC Distribution Width CV 26.1 % (11.6-14.6); RBC Distribution Width SD 77.5 fl (35.1-43.9); Red Blood Count 3.76 M/mm3 (4.6-6.2); White Blood Count 4.7 K/mm3 (4.4-11.0)
[2020-02-25 09:11] LABS: International Normalized Ratio 1.6; Prothrombin Time (Protime)PT. 18.1 SECONDS (11.7-14.9)
[2020-02-25 09:20] LABS: Differential Indicated SCAN CRITERIA MET
[2020-02-25 09:53] LABS: Anisocytosis 1+
== END 2020-02-25 18:00 | disposition home or self-care (01) ==
LOC: LAB 08:41
PROVIDERS: Physician Assistant Medical; Family Provider Family Medicine; PCP Family Medicine; Referring Provider Specialist; Visit Provider Specialist
DX: I48.0 Paroxysmal atrial fibrillation (principal); E03.9 Hypothyroidism, unspecified; Z79.01 Long term (current) use of anticoagulants
CPT/HCPCS: 36415; 84443; 85025; 85610

== ENCOUNTER → 2020-03-08 16:44 | Outpatient (CLI) | payer MEDICARE, OTHER, SELFPAY ==
[2020-01-19 11:17] VITALS: BMI 34.0
[2020-03-08 18:17] LABS: Absolute Lymphocyte Count 0.83 X10^3/uL (0.83-4.51); Basophil# 0.04 X10^3/uL; Basophil% 0.6 % (0-1); Eosinophil# 0.24 X10^3/uL; Eosinophils% 3.5 % (0-5); Hematocrit 35.1 % (40-54); Hemoglobin 10.1 g/dL (13.0-16.5); Lymphocyte # 0.83 X10^3/ul (4.0); Lymphocyte % 12.2 % (19-41); Mean Corp Hgb Conc 28.8 g/dL (32-36); Mean Corpuscular Hgb 25.1 pg (27.0-32.0); Mean Corpuscular Volume 87.3 fL (80-94); Mean Platelet Vol. 11.5 fl (6.2-12.0); Monocyte# 0.72 X10^3/uL; Monocyte% 10.5 % (0-10); NRBC Flagged by Analyzer 0 % (0-5); Neutrophil # 4.98 X10^3/uL (2.7-7.7); Neutrophil % 72.9 % (47-70); POSITIVE MORPHOLOGY YES; Platelet Count 185 K/mm3 (150-450); Red Blood Count 4.02 M/mm3 (4.6-6.2); White Blood Count 6.8 K/mm3 (4.4-11.0)
[2020-03-08 18:21] LABS: Differential Indicated SCAN CRITERIA MET
[2020-03-08 19:57] LABS: Crenated RBC 2+; Differential Comment SCANNED; Ovalocyte RARE
== END ==
PROVIDERS: PCP Family Medicine; Referring Provider Family Medicine; Visit Provider Family Medicine
DX: D64.9 Anemia, unspecified (principal)
CPT/HCPCS: 36415; 85025

== ENCOUNTER → 2020-03-16 09:38 | Outpatient (CLI) | payer MEDICARE, OTHER, SELFPAY ==
[2020-01-19 11:17] VITALS: BMI 34.0
[2020-03-16 16:13] LABS: Absolute Lymphocyte Count 0.83 X10^3/uL (0.83-4.51); Absolute Neutrophil Count 3.5 X10^3/uL (2.0-7.7); Basophil# 0.06 X10^3/uL; Basophil% 1.1 % (0-1); Differential Indicated SCAN CRITERIA MET; Eosinophil# 0.36 X10^3/uL; Eosinophils% 6.9 % (0-5); Hematocrit 34.1 % (40-54); Hemoglobin 9.8 g/dL (13.0-16.5); Lymphocyte # 0.83 X10^3/ul (4.0); Lymphocyte % 15.9 % (19-41); Mean Corp Hgb Conc 28.7 g/dL (32-36); Mean Corpuscular Hgb 25.5 pg (27.0-32.0); Mean Corpuscular Volume 88.6 fL (80-94); Mean Platelet Vol. 11.2 fl (6.2-12.0); Monocyte% 9.6 % (0-10); NRBC Flagged by Analyzer 0 % (0-5); Neutrophil # 3.47 X10^3/uL (2.7-7.7); Neutrophil % 66.3 % (47-70); POSITIVE MORPHOLOGY YES; Platelet Count 163 K/mm3 (150-450); RBC Distribution Width CV 24.2 % (11.6-14.6); RBC Distribution Width SD 76.9 fl (35.1-43.9); Red Blood Count 3.85 M/mm3 (4.6-6.2); White Blood Count 5.2 K/mm3 (4.4-11.0)
== END ==
PROVIDERS: PCP Family Medicine; Referring Provider Family Medicine; Visit Provider Family Medicine
DX: D64.9 Anemia, unspecified (principal)
CPT/HCPCS: 36415; 85025

== ENCOUNTER → 2020-03-24 09:23 | Outpatient (CLI) | payer MEDICARE, OTHER, SELFPAY ==
[2020-01-19 11:17] VITALS: BMI 34.0
[2020-03-24 10:01] LABS: Absolute Lymphocyte Count 0.83 X10^3/uL (0.83-4.51); Absolute Neutrophil Count 2.9 X10^3/uL (2.0-7.7); Basophil# 0.04 X10^3/uL; Basophil% 0.9 % (0-1); Eosinophil# 0.39 X10^3/uL; Eosinophils% 8.3 % (0-5); Hematocrit 32.9 % (40-54); Hemoglobin 9.7 g/dL (13.0-16.5); Lymphocyte # 0.83 X10^3/ul (4.0); Lymphocyte % 17.7 % (19-41); Mean Corp Hgb Conc 29.5 g/dL (32-36); Mean Corpuscular Hgb 25.9 pg (27.0-32.0); Mean Corpuscular Volume 87.7 fL (80-94); Mean Platelet Vol. 11.1 fl (6.2-12.0); Monocyte% 10.7 % (0-10); NRBC Flagged by Analyzer 0 % (0-5); Neutrophil # 2.92 X10^3/uL (2.7-7.7); Neutrophil % 62.2 % (47-70); POSITIVE MORPHOLOGY YES; Platelet Count 190 K/mm3 (150-450); RBC Distribution Width CV 22.7 % (11.6-14.6); RBC Distribution Width SD 71.4 fl (35.1-43.9); Red Blood Count 3.75 M/mm3 (4.6-6.2); White Blood Count 4.7 K/mm3 (4.4-11.0)
[2020-03-24 10:02] LABS: Differential Indicated SCAN CRITERIA MET
[2020-03-24 10:34] LABS: Differential Comment SCANNED; Hypochromasia 1+; Ovalocyte 2+; Schistocytes 1+
[2020-03-24 10:35] LABS: Anisocytosis 1+
== END ==
PROVIDERS: PCP Family Medicine; Referring Provider Family Medicine; Visit Provider Family Medicine
DX: D64.9 Anemia, unspecified (principal)
CPT/HCPCS: 36415; 85025

== ENCOUNTER 2020-03-31 08:51 | Outpatient (RCR) | payer MEDICARE, OTHER, SELFPAY ==
[2020-01-19 11:17] VITALS: BMI 34.0
[2020-03-03 10:25] LABS: International Normalized Ratio 1.8; Prothrombin Time (Protime)PT. 20.6 SECONDS (11.7-14.9)
[2020-03-10 15:05] LABS: International Normalized Ratio 3.3; Prothrombin Time (Protime)PT. 33.3 SECONDS (11.7-14.9)
[2020-03-17 10:00] LABS: Prothrombin Time (Protime)PT. 30.9 SECONDS (11.7-14.9)
[2020-03-31 09:32] LABS: International Normalized Ratio 2.8; Prothrombin Time (Protime)PT. 28.8 SECONDS (11.7-14.9)
== END 2020-03-31 18:00 | disposition home or self-care (01) ==
LOC: LAB 08:51
PROVIDERS: Family Provider Family Medicine; PCP Family Medicine; Referring Provider Specialist; Visit Provider Specialist
DX: I48.0 Paroxysmal atrial fibrillation (principal); Z79.01 Long term (current) use of anticoagulants
CPT/HCPCS: 36415; 85610

== ENCOUNTER → 2020-04-26 10:30 | Outpatient (CLI) | payer MEDICARE, OTHER, SELFPAY ==
[2020-04-17 13:13] VITALS: BMI 30.9
[2020-04-26 14:06] LABS: Probe Check PASS; Specimen Processing Control PASS
[2020-05-12 07:13] VITALS: BP 126/77; PULSE 101; RESP 18; TEMP 36.3; O2SAT 97; BMI 30.1
--- NOTE | 2020-05-12 07:17 | HP.PCM_ITS ---
Problem List (1) Urinary retention Status: Acute History of Present Illness Date of Admission: 05/12/20 Chief Complaint: retention of urine The patient is a 84 year old male with retention of urine, plan for TUrP of the prostate. Past Medical History Past Medical History (Chronic Problems): Chronic Problems (Last Reviewed 04/17/20 @ 13:[address] Linsey Townsend MD) On amiodarone therapy (Chronic) Hypothyroidism (acquired) (Chronic) Paroxysmal atrial fibrillation (Chronic) History of cardioversion (Chronic 05/31/19) Successful on Amiodarone 05/31/2019 @ [facility] per [facility] Atherosclerosis of coronary artery of [place] heart without angina pectoris (Chronic) NEFF to LAD, SVG to Lateral CX, and SVG to PDA 12/25/[address] 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 Paulino Flores, [facility] [place] History of right and left heart catheterization (Chronic 12/02/18) Triple vessel CAD of the LM, LAD, OMs, RCA. Normal LV size, wall motion,and systolic function Perserved Left Ventricular systolic function with normal EDP LVEF: by LV gram 65 % The patient has normal pulmonary hemodynamics. 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 Carotid artery disease (Chronic) ON PLAVIX FOR THIS FROM DR. GIRMA FISHMAN: occluded proximal right carotid and right vertebral with collaterals Aortic stenosis (Chronic) New onset atrial fibrillation (Chronic) Hypertension (Chronic) Hyperlipidemia (Chronic) Acid reflux (Chronic) COPD (chronic obstructive pulmonary disease) (Chronic) Colon cancer (Chronic) Medical History: Medical History (Last Reviewed 05/12/20 @ 07:[address] Eligio Garcia MD) On amiodarone therapy (Chronic) Z79.899 Hypothyroidism (acquired) (Chronic) E03.9 Paroxysmal atrial fibrillation (Chronic) I48.0 Atherosclerosis of coronary artery of [place] heart without angina pectoris (Chronic) I25.10 NEFF to LAD, SVG to Lateral CX, and SVG to PDA 12/25/[address] Paulino Flores, [facility] [place] Carotid artery disease (Chronic) I77.9 ON PLAVIX FOR THIS FROM DR. GIRMA FISHMAN: occluded proximal right carotid and right vertebral with collaterals Aortic stenosis (Chronic) I35.0 New onset atrial fibrillation (Chronic) I48.91 Pre-operative cardiovascular examination (Acute) Z01.810 Hypertension (Chronic) I10 Hyperlipidemia (Chronic) E78.5 Anemia (Acute) D64.9 Prostatic hypertrophy (Acute) N40.0 Acid reflux (Chronic) K21.9 COPD (chronic obstructive pulmonary disease) (Chronic) J44.9 Colon cancer (Chronic) C18.9 Abnormality of gait R26.9 Allergic rhinitis J30.9 Obesity E66.9 Blood clots in stool (Resolved) K92.1 Allergies adhesive tape Allergy (Intermediate, Verified 04/17/20 13:15) dermatitis Home Medications: Ambulatory Orders Medication Instructions Recorded atorvastatin 80 mg tablet 80 mg PO QDAY 07/14/17 coenzyme Q10 100 mg capsule 100 mg PO QDAY 07/14/17 Tamsulosin HCl [Flomax] 0.4 mg PO QHS 11/04/18 aspirin 81 mg tablet,delayed 81 mg PO DAILY 11/20/18 release acetaminophen 325 mg capsule 650 mg PO Q6H PRN cap 01/04/19 furosemide 40 mg tablet 40 mg PO DAILY #30 tab 01/19/20 levothyroxine 125 mcg tablet 125 mcg PO DAILY 01/19/20 omega-3s 300 py-vvd-hkk-other 1 cap PO DAILY ea 01/19/20 [id number] oil 1,000 mg capsule Warfarin Sodium 5 mg PO WETH 02/10/20 ascorbic acid (vitamin C) 500 mg 500 mg PO TID 02/15/20 tablet ferrous sulfate 325 mg (65 mg 325 mg PO TID 02/15/20 iron) tablet metoprolol succinate 50 mg 50 mg PO DAILY #90 tab 03/10/20 tablet,extended release 24 hr warfarin 1 mg tablet 2 mg PO .COMPLEX #30 tab 03/10/20 Amiodarone HCl 100 mg PO DAILY 04/24/20 Vitamin B Complex [B Complex] 1 ea PO DAILY 05/04/20 Surgical History: Surgical History (Last Reviewed 04/17/20 @ 13:[address] Linsey Townsend MD) History of cardioversion (Chronic) Onset Date: 05/31/19 Z98.890 Successful on Amiodarone 05/31/2019 @ [facility] per [facility] Status post mitral valve repair (Chronic) Onset Date: 12/25/18 Z98.890 Mitral Valve repair with [place] band #29 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 Paulino Flores, [facility] History of right and left heart catheterization (Chronic) Onset Date: 12/02/18 Z98.890 Triple vessel CAD of the LM, LAD, OMs, RCA. Normal LV size, wall motion,and systolic function Perserved Left Ventricular systolic function with normal EDP LVEF: by LV gram 65 % The patient has normal pulmonary hemodynamics. 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 History of colectomy Z98.890, Z90.49 for colon cancer History of colonoscopy Onset Date: 09/30/17 Z98.890 Surgical History: colectomy, coronary bypass surgery - mitral valve repair Smoking Status: Former smoker Review of Systems Constitutional: Denies: Chills, Fever, Weight Change HEENT: Denies: Head Aches, Sinus Congestion, Sinus Drainage Cardiovascular: Denies: Chest Pain, Palpitations Respiratory: Denies: Cough, Shortness of breath at rest, Sputum production Gastrointestinal: Denies: Abdominal Pain, Nausea, Vomiting Genitourinary: Denies: Dysuria Musculoskeletal: Denies: Joint Pain, Joint Tenderness Skin: Denies: Rash, Wounds Neurological: Denies: Numbness, Tingling, Focal weakness Psychiatric: Denies: Anxiety, Depression, Homicidal Ideations, Suicidal Ideations Hematologic/ Lymphatic: Denies: Easy Bruising, Easy Bleeding VTE Information - Inpt Only VTE Present on Admission: No - Physical Exam Vitals/I&O's: Body Mass Index (BMI) 30.9 General: Alert, Oriented x3, Cooperative HEENT: Atraumatic, PERRLA, EOMI, Normocephalic Neck: Supple, No JVD, Negative Carotid Bruits Lungs: Clear to auscultation, Normal air movement Cardiovascular: Regular rate, No murmurs Abdomen: Bowel Sounds Present, Soft, Non Tender Extremities: No edema, Capillary Refill Less than 3 Seconds Skin: No rashes, No breakdown Musculoskeletal: No Tenderness to Palpation of Joints or Extremities Neurological: Cranial nerves II-XII grossly intact Psych/Mental Status: Normal Affect, Appropriate Current Medications Cefazolin Sodium 2 gm/ Sodium (Chloride) 110 mls @ 150 mls/hr IV PREOP ONE Stop: 05/12/20 09:23 Assessment/Plan All Active Problems (Last Reviewed 04/17/20 @ 13:[address] 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
--- NOTE | 2020-05-12 07:20 | SUR.PREOP ---
FINGERSTICK INR 2.6, NOTIFIED DR HANDLEY IMMEDIATELY WHO CONTACTED DR BEATTY. STAT LAB BACKUP PT/INR DRAWN. UPDATED PATIENT.
--- NOTE | 2020-05-12 07:27 | DCINST_ITS ---
Discharge Diet: Light diet - advance as tolerated Discharge Activity: May Shower Additional Activity Instructions:: Please be aware that pain medications may cause nausea. You should typically eat light foods as you take your pain medication. Pain medication may cause constipation, if this is a problem for you, please discuss with your doctor. Call your doctor if your incision/area has: Sudden Increased Bleeding Call your doctor if you observe: Fever of 101 or Higher Instructions: Transurethral Resection of the Prostate (TURP): Home Recovery Additional Instructions: hold coumadin for 10 days after Surgery Allergies/Adverse Reactions: Allergies adhesive tape Allergy (Intermediate, Verified 04/17/20 13:15) dermatitis Medications to take at Discharge atorvastatin 80 mg tablet 80 mg PO QDAY 07/14/17 coenzyme Q10 100 mg capsule 100 mg PO QDAY 07/14/17 Tamsulosin HCl [Flomax] 0.4 mg PO QHS 11/04/18 aspirin 81 mg tablet,delayed release 81 mg PO DAILY 11/20/18 acetaminophen 325 mg capsule 650 mg PO Q6H PRN cap 01/04/19 furosemide 40 mg tablet 40 mg PO DAILY #30 tab 01/19/20 levothyroxine 125 mcg tablet 125 mcg PO DAILY 01/19/20 omega-3s 300 ur-tiy-cxp-other afwxr9s-hoga oil 1,000 mg capsule 1 cap PO DAILY ea 01/19/20 ascorbic acid (vitamin C) 500 mg tablet 500 mg PO TID 02/15/20 ferrous sulfate 325 mg (65 mg iron) tablet 325 mg PO TID 02/15/20 metoprolol succinate 50 mg tablet,extended release 24 hr 50 mg PO DAILY #90 tab 03/10/20 Amiodarone HCl 100 mg PO DAILY 04/24/20 Vitamin B Complex [B Complex] 1 ea PO DAILY 05/04/20 Primary Care Physician: Kevin Boogie MD [Primary Care Provider] - Test Results: Test results from this visit will be discussed in further detail at your follow- up appointment, if applicable. Please Follow Up With: Eligio Garcia MD - [phone] When: in 2 weeks, please call to make an appointment.
[2020-05-12 07:48] LABS: International Normalized Ratio 2.5; Prothrombin Time (Protime)PT. 26.3 SECONDS (11.7-14.9)
[2020-05-12 12:41] LABS: Prothrombin Time Fingerstick 29.1 SEC (11.9-14.4)
== END ==
LOC: AC 05-12 07:51 → PAT 06-06 14:51
PROVIDERS: Anesthesiology; PCP Family Medicine; Referring Provider Urology; Visit Provider Urology
DX: N40.1 Benign prostatic hyperplasia with lower urinary tract symptoms (principal); R33.9 Retention of urine, unspecified; R35.0 Frequency of micturition; R39.12 Poor urinary stream; Z53.8 Procedure and treatment not carried out for other reasons; U07.1 COVID-19; Z79.01 Long term (current) use of anticoagulants; Z79.899 Other long term (current) drug therapy
CPT/HCPCS: 52601; 36416; 85610; 87426; 87635; C9803; J7120; U0002

== ENCOUNTER 2020-06-03 03:59 | Inpatient (IN) | payer MEDICARE, OTHER, SELFPAY ==
[2020-05-12 07:13] VITALS: BMI 30.1
[2020-06-03] VITALS (28 sets, daily range): BP systolic 101–125; BP diastolic 51–97; PULSE 84–127; RESP 15–33; TEMP 35.7–37.3; O2SAT 81–99; BMI 29.9; BMI 30.1
--- NOTE | 2020-06-03 04:19 | EKG12_ITS ---
Test Reason : DYSRHYTHMIA Blood Pressure : / mmHG Vent. Rate : 119 BPM Atrial Rate : 113 BPM P-R Int : 000 ms QRS Dur : 112 ms QT Int : 336 ms P-R-T Axes : 000 -27 119 degrees QTc Int : 472 ms Atrial fibrillation with rapid ventricular response with premature ventricular or aberrantly conducte d complexes Minimal voltage criteria for LVH, may be normal variant ST & T wave abnormality, consider lateral ischemia Abnormal ECG Confirmed by KRYSTIN MIJARES, GARY ([id number]), commissioning editor JOANA LOVELACE ([id number]) on 06/05/2020 8:42:28 AM Referred By: Eligio Garcia Confirmed By:GARY MCCLELLAND MD
--- NOTE | 2020-06-03 04:19 | RAD_ITS ---
HISTORY: Chest pain, increase in weakness, A-fib. ADDITIONAL HISTORY: None provided. EXAMINATION/TECHNIQUE: XR Chest 1 View AP/PA Number of images including paperwork: 1 COMPARISON: 10/20/2019 FINDINGS: LUNGS AND PLEURA: Right lung volume loss with pleural parenchymal scarring, similar to previous. Interstitial and airspace opacities on the left have increased. No sizable pleural effusion or pneumothorax. CARDIAC SILHOUETTE: Stable. MEDIASTINUM AND GAURI: Stable. UPPER ABDOMEN: Unremarkable. SKELETON AND SOFT TISSUES: No acute skeletal findings. Degenerative changes. OTHER DEVICES AND HARDWARE: Sternal wires. RAD/Chest 1 View (Portable) IMPRESSION: Left lung infiltrates, nonspecific but possibly infection, asymmetric edema or other cause of infiltrate. at [id number] Reported and signed by: Cyndie Ryan MD Electronically Signed: Cyndie Ryan MD at 4:54 EST Tel , Service support ,
--- NOTE | 2020-06-03 04:20 | ED.DCSUM_ITS ---
History of Present Illness Chief Complaint: Palpitations Informant: Patient Narrative: Patient reports weakness. He called the paramedics tonight as he tried to get up to go the bathroom and fell to the ground. He did not injure himself. He lowered himself to the ground. He sat there for 30 minutes. He was able to get up but with difficulty. He called EMS who arrived and evaluated him. They found he was in atrial fibrillation with RVR. He is not having any shortness of breath or chest pain. He does have a history of CHF and coronary artery disease and A. fib. He is on metoprolol amiodarone and Coumadin. Normally he does not live in A. fib. He thinks his last cardioversion was approximately a year ago. Denies any fevers or chills or coronavirus exposures. - Past Medical History (1) Abnormal stress test Status: Acute (2) Anemia Status: Acute (3) CHF (congestive heart failure) Status: Acute (4) Dyspnea on exertion Status: Acute (5) nursing home current use of anticoagulant Status: Acute (6) Personal history of colonic polyps Status: Acute (7) Pre-operative cardiovascular examination Status: Acute (8) Prostatic hypertrophy Status: Acute (9) ST segment depression Status: Acute (10) Urinary retention Status: Acute (11) Acid reflux Status: Chronic (12) Aortic stenosis Status: Chronic (13) Atherosclerosis of coronary artery of [place] heart without angina pectoris Status: Chronic Comment: NEFF to LAD, SVG to Lateral CX, and SVG to PDA 12/25/[address] Paulino Flores, [facility] (14) COPD (chronic obstructive pulmonary disease) Status: Chronic (15) Carotid artery disease Status: Chronic Comment: ON PLAVIX FOR THIS FROM DR. KEVIN BOOGIE: occluded proximal right carotid and right vertebral with collaterals (16) Colon cancer Status: Chronic (17) History of cardioversion Status: Chronic Comment: Successful on Amiodarone 05/31/2019 @ [facility] per DARI (18) History of coronary artery bypass graft x 3 Status: Chronic Comment: NEFF to LAD, SVG to Lateral CX, and SVG to PDA 12/25/[address] Paulino lFores, [facility] (19) History of right and left heart catheterization Status: Chronic Comment: Triple vessel CAD of the LM, LAD, OMs, RCA. Normal LV size, wall motion,and systolic function Perserved Left Ventricular systolic function with normal EDP LVEF: by LV gram 65 % The patient has normal pulmonary hemodynamics. 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 (20) Hyperlipidemia Status: Chronic (21) Hypertension Status: Chronic (22) Hypothyroidism (acquired) Status: Chronic (23) New onset atrial fibrillation Status: Chronic (24) On amiodarone therapy Status: Chronic (25) Paroxysmal atrial fibrillation Status: Chronic (26) Status post mitral valve repair Status: Chronic Comment: Mitral Valve repair with [place] band #29 Past Medical History - Allergies and Home Meds Allergies/Adverse Reactions: Allergies adhesive tape Allergy (Intermediate, Verified 06/03/20 04:01) dermatitis Primary Care Physician: Kevin Boogie MD [Primary Care Provider] - Prior records reviewed: Yes Past Medical History: - - See problem list Surgical History: colectomy, coronary bypass surgery - mitral valve repair Smoking Status: Former smoker Alcohol: None Drugs: None Review of Systems General: Denies: Chills, Fever, Sweats Eyes: Denies: Visual changes - bilaterally, Diplopia ENT: Denies: Rhinorrhea, Sore throat Cardiovascular: Denies: Chest pain, Palpitations Respiratory: Denies: Dyspnea, Cough, Dyspnea on exertion Gastrointestinal: Denies: Abdominal pain, Nausea, Vomiting, Diarrhea, Melena, Hematochezia Genitourinary: Denies: Dysuria, Hematuria, Frequency Musculoskeletal: Denies: Back pain, Extremity Pain Skin: Denies: Rash, Wounds Neurological: Reports: Weakness. Denies: Headache, Numbness Physical Exam Vital Signs/Narrative: Vital Signs Temp Pulse Resp BP Pulse Ox 06/03/20 04:07 93 06/03/20 04:05 87 06/03/20 04:01 98.0 F 127 H 33 H 119/66 81 General: Well nourished, Well developed, No Acute Distress Head: Normocephalic, Atraumatic Eyes: Perrl, EOMI ENT: Moist mucous membranes, No rhinorrhea Neck: Supple, Nontender Cardiovascular: No murmurs, Irregular, Tachycardia Respiratory: No distress, CTA bilaterally, Chest nontender Abdomen: Soft, Nontender, Nondistended, Normal bowel sounds Back: Nontender, Normal Inspection Extremities: Nontender, No edema Skin: No rash Neurological: Alert, Oriented x3, Cranial nerves II-XII grossly intact, Normal Strength, Normal Sensation Psychological: Normal affect, Normal Mood Diagnostic/Tx/Re-eval - Medical Decision Making My interpretation the EKG is atrial fibrillation with a rate of 119. No acute ischemia. Patient given dose of Cardizem to lower his rate. Placed on oxygen as he is requiring oxygen as he is hypoxic on arrival. Lab work obtained including coronavirus testing. Chest x-ray obtained. Cardizem successfully lowered his heart rate less than 100. He is not hypoxic on nasal cannula oxygen. Chest x-ray interpreted by myself shows chronic scarring. Mild pulmonary edema noted. CBC shows chronic anemia. Hemoglobin is less than 7. He has a history of chronic anemia. Denies any new GI bleeding. Has had multiple transfusions in the past. Typed and crossed for 2 units transfusion. Exam shows brown stool in the vault. Guaiac pending. He is on iron. Patient has chronic kidney disease with a mild elevation in his BUN and creatinine. He has mild elevation in his liver function tests. No pain over his gallbladder or liver. INR is supratherapeutic greater than 5. No active bleeding at this time. Will monitor and hold his Coumadin. Troponin is negative. Coronavirus testing negative. I feel he will benefit from admission for the above. - Critical Care Time Critical care time (excluding procedures): 30-74 minutes ED Disposition - Plan for ED Patient: Disposition: Acute Care Hospital [facility] Diagnosis: Atrial fibrillation with rapid ventricular response, CHF (congestive heart failure), Acute on chronic anemia, Chronic renal insufficiency, Weakness, Respiratory failure
[2020-06-03 04:26] LABS: Absolute Lymphocyte Count 0.57 X10^3/uL (0.83-4.51); Absolute Neutrophil Count 9.9 X10^3/uL (2.0-7.7); Basophil# 0.02 X10^3/uL; Basophil% 0.2 % (0-1); Eosinophil# 0.01 X10^3/uL; Eosinophils% 0.1 % (0-5); Hematocrit 21.8 % (40-54); Hemoglobin 6.4 g/dL (13.0-16.5); Lymphocyte # 0.57 X10^3/ul (4.0); Lymphocyte % 5.1 % (19-41); Mean Corp Hgb Conc 29.4 g/dL (32-36); Mean Corpuscular Hgb 28.2 pg (27.0-32.0); Mean Platelet Vol. 10.5 fl (6.2-12.0); Monocyte% 5.4 % (0-10); NRBC Flagged by Analyzer 0 % (0-5); Neutrophil # 9.88 X10^3/uL (2.7-7.7); Neutrophil % 88.8 % (47-70); POSITIVE DIFFERENTIAL YES; Platelet Count 200 K/mm3 (150-450); RBC Distribution Width SD 61.9 fl (35.1-43.9); Red Blood Count 2.27 M/mm3 (4.6-6.2); White Blood Count 11.1 K/mm3 (4.4-11.0)
[2020-06-03] MEDS: dilTIAZem 25 MG/5 ML Vial 10 MG IV BOLUS (04:34)
[2020-06-03 04:43] LABS: Differential Indicated SCAN CRITERIA MET
[2020-06-03 04:47] LABS: BNP,B-Type NATRIURETIC PEPTIDE 216.7 pg/mL (0-100)
[2020-06-03 04:50] LABS: Prothrombin Time (Protime)PT. 52.1 SECONDS (11.7-14.9)
[2020-06-03 04:57] LABS: International Normalized Ratio 5.8
[2020-06-03 05:00] LABS: Acanthocytes 2+; Differential Comment SCANNED; Hypochromasia 3+; Polychromasia 1+
[2020-06-03 05:01] LABS: AST(SGOT) 45 U/L (15-37); Alanine Aminotransfer ALT/SGPT 29 U/L (16-61); Albumin, Serum 2.5 g/dL (3.2-5.0); Alkaline Phosphatase 196 U/L (45-117); Anion Gap 10 (5-15); BUN 41 mg/dL (7-18); BUN/Creat Ratio 24.3 RATIO (10-20); Bilirubin, Direct 0.64 mg/dL (0.00-0.30); Calcium,Total 9.4 mg/dL (8.5-10.1); Chloride 105 mmol/L (98-107); Creatinine, Serum 1.69 mg/dL (0.70-1.30); EST Glomerular Filtration Rate 41 mL/min (>60); Est Glom Filt Rate - Afr Amer 50 mL/min (>60); Estimated Creatinine Clearance 35.71 ml/min; Globulin 4.2 g/dL (2.2-4.2); Glucose 110 mg/dL (74-106); Potassium 4.3 mmol/L (3.5-5.1); Protein, Total 6.7 g/dL (6.4-8.2); Sodium Level 136 mmol/L (136-145)
--- NOTE | 2020-06-03 05:39 | ED.RN ---
attempted to contact son with update patient being admitted ernestine marroquin [phone]
--- NOTE | 2020-06-03 05:44 | PCM.HP.STD ---
Problem List (1) Atrial fibrillation with rapid ventricular response Status: Acute (2) Acute on chronic anemia Status: Acute (3) Acute exacerbation of CHF (congestive heart failure) Status: Acute Qualifiers: Heart failure type: diastolic Qualified Code(s): I50.33 - Acute on chronic diastolic (congestive) heart failure (4) Urinary retention Status: Chronic (5) Hypothyroidism (acquired) Status: Chronic (6) Status post mitral valve repair Status: Chronic Comment: Mitral Valve repair with Moreno band #29 (7) History of coronary artery bypass graft x 3 Status: Chronic Comment: NEFF to LAD, SVG to Lateral CX, and SVG to PDA 12/25/[address] Paulino Flores, [facility] (8) Carotid artery disease Status: Chronic Qualifiers: Carotid artery disease type: unspecified Laterality: unspecified laterality Qualified Code(s): I77.9 - Disorder of arteries and arterioles, unspecified Comment: ON PLAVIX FOR THIS FROM DR. GIRMA FISHMAN: occluded proximal right carotid and right vertebral with collaterals (9) Hypertension Status: Chronic Qualifiers: Hypertension type: essential hypertension Qualified Code(s): I10 - Essential (primary) hypertension (10) Hyperlipidemia Status: Chronic Qualifiers: Hyperlipidemia type: unspecified Qualified Code(s): E78.5 - Hyperlipidemia, unspecified (11) Prostatic hypertrophy Status: Chronic (12) Acid reflux Status: Chronic Qualifiers: Esophagitis presence: esophagitis presence not specified Qualified Code(s): K21.9 - Gastro-esophageal reflux disease without esophagitis (13) COPD (chronic obstructive pulmonary disease) Status: Chronic Qualifiers: COPD type: unspecified COPD Qualified Code(s): J44.9 - Chronic obstructive pulmonary disease, unspecified (14) Colon cancer Status: Chronic Qualifiers: Colon location: unspecified part of colon Qualified Code(s): C18.9 - Malignant neoplasm of colon, unspecified History of Present Illness Date of Admission: 06/03/20 Chief Complaint: Weakness, fall. The patient is a 84 y/o M w/ PMHx: Chronic CHF, Hx colon CA s/p colectomy, CAD s/p CABG x 3, PAF, HTN, HLD, Chronic COPD, BPH, Hypothyroidism, Hx VTE, Carotid artery disease, Valvular heart disease who presents to the [facility] ED on 06/03/20 with history of onset significant weakness with called EMS secondary to fall with inability to get himself up off the bathroom floor with no specific injury noted to have lowered himself to the ground with recent increased lower extremity edema as well as some exertional dyspnea but no history of concurrent chest discomfort prompting eventual ED evaluation. Work-up in the ED included initially T 98, heart rate 127-->90s, BP 119/66, respiratory rate 33, initially 81% on room air with improvement to 93% on 5 L nasal cannula, CBC with WC 11.1, hemoglobin 6.4, platelet 200 with left shift and lymphopenia, coags with PT 52.1, INR 5.8, CMP with BUN/10 and 41/1.69, glucose 110, total bilirubin 2.40, direct bilirubin 0.64, AST/ALT 45/29, alk phos 196, troponin less than 0.015, BNP 216.7, negative stool occult blood, SARS rapid antigen negative, type and cross for 2 unit PRBC per ED initiated, chest x-ray with left lung infiltrates nonspecific but possible early infection, asymmetric edema or other cause of infiltrate, EKG with atrial fibrillation with RVR. In the ED patient ministered diltiazem 10 mg IV bolus x1 as well as Lasix 20 mg IV x1. He denies any recent BRB or dark black stool but does note secondary to being on iron they are dark appearing and have been unchanged. He notes having had endoscopies prior without any findings. He has required transfusions prior. Past Medical History Past Medical History (Chronic Problems): Chronic Problems (Last Reviewed 05/12/20 @ 07:[address] Eligio Garcia MD) Urinary retention (Chronic) Chronic renal insufficiency (Chronic) On amiodarone therapy (Chronic) Hypothyroidism (acquired) (Chronic) Paroxysmal atrial fibrillation (Chronic) History of cardioversion (Chronic 05/31/19) Successful on Amiodarone 05/31/2019 @ [facility] per DARI Atherosclerosis of coronary artery of [place] heart without angina pectoris (Chronic) NEFF to LAD, SVG to Lateral CX, and SVG to PDA 12/25/[address] Paulino Flores, [facility] Main [place] Status post mitral valve repair (Chronic 12/25/18) Mitral Valve repair with Moreno band #29 History of coronary artery bypass graft x 3 (Chronic 12/25/18) NEFF to LAD, SVG to Lateral CX, and SVG to PDA 12/25/[address] Paulino Flores, [facility] History of right and left heart catheterization (Chronic 12/02/18) Triple vessel CAD of the LM, LAD, OMs, RCA. Normal LV size, wall motion,and systolic function Perserved Left Ventricular systolic function with normal EDP LVEF: by LV gram 65 % The patient has normal pulmonary hemodynamics. 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 Carotid artery disease (Chronic) ON PLAVIX FOR THIS FROM DR. GIRMA FISHMAN: occluded proximal right carotid and right vertebral with collaterals Aortic stenosis (Chronic) New onset atrial fibrillation (Chronic) Hypertension (Chronic) Hyperlipidemia (Chronic) Prostatic hypertrophy (Chronic) Acid reflux (Chronic) COPD (chronic obstructive pulmonary disease) (Chronic) Colon cancer (Chronic) Medical History: Medical History (Last Reviewed 05/12/20 @ 07:[address] Eligio Garcia MD) On amiodarone therapy (Chronic) Z79.899 Hypothyroidism (acquired) (Chronic) E03.9 Paroxysmal atrial fibrillation (Chronic) I48.0 Atherosclerosis of coronary artery of [place] heart without angina pectoris (Chronic) I25.10 NEFF to LAD, SVG to Lateral CX, and SVG to PDA 12/25/[address] Paulino Flores, [facility] Carotid artery disease (Chronic) I77.9 ON PLAVIX FOR THIS FROM DR. GIRMA FISHMAN: occluded proximal right carotid and right vertebral with collaterals Aortic stenosis (Chronic) I35.0 New onset atrial fibrillation (Chronic) I48.91 Pre-operative cardiovascular examination (Acute) Z01.810 Hypertension (Chronic) I10 Hyperlipidemia (Chronic) E78.5 Anemia (Acute) D64.9 Prostatic hypertrophy (Acute) N40.0 Acid reflux (Chronic) K21.9 COPD (chronic obstructive pulmonary disease) (Chronic) J44.9 Colon cancer (Chronic) C18.9 Abnormality of gait R26.9 Allergic rhinitis J30.9 Obesity E66.9 Blood clots in stool (Resolved) K92.1 Allergies adhesive tape Allergy (Intermediate, Verified 06/03/20 04:01) dermatitis Home Medications: Ambulatory Orders Medication Instructions Recorded atorvastatin 80 mg tablet 80 mg PO QDAY 07/14/17 coenzyme Q10 100 mg capsule 100 mg PO QDAY 07/14/17 Tamsulosin HCl [Flomax] 0.4 mg PO QHS 11/04/18 aspirin 81 mg tablet,delayed 81 mg PO DAILY 11/20/18 release acetaminophen 325 mg capsule 650 mg PO Q6H PRN cap 01/04/19 furosemide 40 mg tablet 40 mg PO DAILY #30 tab 01/19/20 levothyroxine 125 mcg tablet 125 mcg PO DAILY 01/19/20 omega-3s 300 bm-veb-lco-other 1 cap PO DAILY ea 01/19/20 [id number] oil 1,000 mg capsule ascorbic acid (vitamin C) 500 mg 500 mg PO TID 02/15/20 tablet ferrous sulfate 325 mg (65 mg 325 mg PO TID 02/15/20 iron) tablet metoprolol succinate 50 mg 50 mg PO DAILY #90 tab 03/10/20 tablet,extended release 24 hr Amiodarone HCl 100 mg PO DAILY 04/24/20 Vitamin B Complex [B Complex] 1 ea PO DAILY 05/04/20 warfarin 2 mg tablet 2 mg PO WETH 05/15/20 warfarin 2.5 mg tablet 5 mg PO SUMOTUFRSA 05/15/20 Surgical History: Surgical History (Last Reviewed 04/17/20 @ 13:[address] Linsey Townsend MD) History of cardioversion (Chronic) Onset Date: 05/31/19 Z98.890 Successful on Amiodarone 05/31/2019 @ [facility] per DJN Status post mitral valve repair (Chronic) Onset Date: 12/25/18 Z98.89 Mitral Valve repair with Moreno band #29 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 Paulino Flores, [facility] [place] History of right and left heart catheterization (Chronic) Onset Date: 12/02/18 Z98.89 Triple vessel CAD of the LM, LAD, OMs, RCA. Normal LV size, wall motion,and systolic function Perserved Left Ventricular systolic function with normal EDP LVEF: by LV gram 65 % The patient has normal pulmonary hemodynamics. 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 History of colectomy Z98.890, Z90.49 for colon cancer History of colonoscopy Onset Date: 09/30/17 Z98.890 Surgical History: colectomy, coronary bypass surgery - mitral valve repair, - - Prior cardioversion, mitral valve repair with Gaudencio band, CABG x3, partial colectomy secondary to colon cancer history Psychiatric History: No pertinent psych hx Lives: Spouse/ Significant Other Smoking Status: Former smoker - Patient quit cigarette tobacco usage in approximately 1996 with prior to this approximate [id number] tobacco use history. Tobacco Use: Non-smoker Alcohol: None Drugs: None - *Family History Maternal Family History: Family History (Last Reviewed 04/17/20 @ 13:[address] Linsey Townsend MD) Father Pneumonia Mother CAD (coronary artery disease) Arthritis Sister Rheumatoid arthritis Oral cancer Sister Arthritis Sister No problems noted. Sister No problems noted. History Items: Heart Disease, - - Concurrent severe osteoarthritic history. Paternal Family History: Family History (Last Reviewed 04/17/20 @ 13:[address] Linsey Townsend MD) Father Pneumonia Mother CAD (coronary artery disease) Arthritis Sister Rheumatoid arthritis Oral cancer Sister Arthritis Sister No problems noted. Sister No problems noted. History Items: Hypertension, - - Father passed secondary complications of pneumonia. Review of Systems Constitutional: Reports: Malaise, Weakness, Fatigue. Denies: Anorexia, Chills, Fever, Weight Change HEENT: Denies: Head Aches, Sinus Congestion, Sinus Drainage Cardiovascular: Reports: Edema, Orthopnea, Palpitations. Denies: Chest Pain, Syncope Respiratory: Reports: Shortness of Breath, Shortness of breath at rest, Shortness of breath upon exertion. Denies: Cough, Sputum production Gastrointestinal: Denies: Abdominal Pain, Nausea, Vomiting Genitourinary: Reports: - - Self straight catheterization routinely.. Denies: Dysuria Musculoskeletal: Reports: Back Pain, Joint Pain. Denies: Joint Tenderness Skin: Reports: Jaundice. Denies: Rash, Wounds Neurological: Denies: Numbness, Tingling, Focal weakness Psychiatric: Denies: Anxiety, Depression, Homicidal Ideations, Suicidal Ideations Hematologic/ Lymphatic: Reports: Anemia, Easy Bruising, Easy Bleeding VTE Information - Inpt Only VTE Present on Admission: No VTE Mechan Device Prophylaxis: SCD's VTE Pharm Prophylaxis ordered?: No Reason prophylaxis not ordered:: Medical Contraindication - Holding patient Coumadin, supratherapeutic INR upon presentation. Patient Problems: Active and Suspected Problems (Last Reviewed 05/12/20 @ 07:[address] Eligio Garcia MD) Atrial fibrillation with rapid ventricular response (Acute) Acute on chronic anemia (Acute) Weakness (Acute) Respiratory failure (Acute) CHF (congestive heart failure) (Acute) long term acute care registered nurse current use of anticoagulant (Acute) ST segment depression (Acute) Dyspnea on exertion (Acute) Abnormal stress test (Acute) Pre-operative cardiovascular examination (Acute) Personal history of colonic polyps (Acute) Anemia (Acute) Subjective: Patient seated upright in ED bed, fatigued appearing, no obvious distress, significant very staged ecchymoses, mild jaundiced appearance. Objective: Physical Examination: General: awake, alert, oriented x 3 and cooperative, seated upright in the ED bed in no apparent distress. Skin: Mild jaundice color, normal turgor, no icterus, no cyanosis, significant very staged ecchymoses to extremity, thorax and even face. HEENT: AT/NC, no scleral icterus present, EOMI, PERRLA, mildly dry MM, no carotid bruits, + JVD noted. Lungs: Diminished breath sounds, greater bases, mild rales bases, no obvious rhonchi or wheezing, no evidence of significant respiratory distress. Heart: Irregular irregular; no gallop, rub audible. Abdomen: soft, obese, NTTP, ND, normal BS, no HSM. Extremities: no cyanosis or clubbing, bilateral pedal to proximal elizondo 2+ pitting edema. Neurological: patient awake, alert, oriented as noted; cognitive function intact; pupils equally reactive to light and accomodation; cranial nerves II-XII grossly normal, moving all 4 extremities, no focal deficits, strength severely global decrease secondary to acute presentation and underlying comorbidities. Psychiatric: affect appears fatigued otherwise normal, no acute evidence of depressive or anxiety feelings. - Physical Exam Vitals/I&O's: Vital Signs Temp Pulse Resp BP Pulse Ox 98.0 F 127 H 33 H 119/66 96 06/03/20 04:30 06/03/20 04:30 06/03/20 04:30 06/03/20 04:30 06/03/20 04:30 Oxygen Flow Rate (L/min) 5 Oxygen Delivery Method Nasal Cannula Weight: 220 lb 14.451 oz Body Mass Index (BMI) 29.9 Microbiology Past 72 Hours 06/03/20 04:45 Mucosa - Nose SARS-CoV-2 Antigen (Rapid) - Final Laboratory Results 06/03/20 04:20: WBC 11.1 H, RBC 2.27 L, Hgb 6.4 L, Hct 21.8 L, MCV 96.0 H, MCH 28.2, MCHC 29.4 L, RDW Std Deviation 61.9 H, RDW Coeff of Marcelino 18.0 H, Plt Count 200, MPV 10.5, Immature Gran % (Auto) 0.400, Neut % (Auto) 88.8 H, Lymph % (Auto) 5.1 L, [place] % (Auto) 5.4, Eos % (Auto) 0.1, Baso % (Auto) 0.2, Absolute Neuts (auto) 9.9 H, Absolute Lymphs (auto) 0.57 L, Nucleated RBC % 0, Differential Comment SCANNED, Polychromasia 1+, Hypochromasia 3+, Acanthocytes (Spur) 2+ 06/03/20 04:20: PT 52.1 H, INR 5.8 H* 06/03/20 04:20: Sodium 136, Potassium 4.3, Chloride 105, Carbon Dioxide 21.0, Anion Gap 10, BUN 41 H, Creatinine 1.69 H, Estim Creat Clear Calc 35.71, Est GFR (MDRD) Af Amer 50 L, Est GFR (MDRD) Non-Af 41 L, BUN/Creatinine Ratio 24.3 H, Glucose 110 H, Calcium 9.4, Total Bilirubin 2.40 H, Direct Bilirubin 0.64 H, AST 45 H, ALT 29, Alkaline Phosphatase 196 H, Troponin I < 0.015, Total Protein 6.7, Albumin 2.5 L, Globulin 4.2 06/03/20 04:20: B-Natriuretic Peptide 216.7 H Assessment/Plan All Active Problems (Last Reviewed 05/12/20 @ 07:[address] Eligio Garcia MD) Atrial fibrillation with rapid ventricular response (Acute) Acute on chronic anemia (Acute) Weakness (Acute) Respiratory failure (Acute) Acute exacerbation of CHF (congestive heart failure) (Acute) CHF (congestive heart failure) (Acute) long term acute care registered nurse current use of anticoagulant (Acute) ST segment depression (Acute) Dyspnea on exertion (Acute) Abnormal stress test (Acute) Pre-operative cardiovascular examination (Acute) Personal history of colonic polyps (Acute) Anemia (Acute) Blood clots in stool (Resolved) The patient is a 84 y/o M w/ PMHx: Chronic CHF, Hx colon CA s/p colectomy, CAD s/p CABG x 3, PAF, HTN, HLD, Chronic COPD, BPH, Hypothyroidism, Hx VTE, Carotid artery disease, Valvular heart disease who presents to the [facility] ED on 06/03/20 with history of onset significant weakness with called EMS secondary to fall with inability to get himself up off the bathroom floor with no specific injury noted to have lowered himself to the ground with recent increased lower extremity edema as well as some exertional dyspnea but no history of concurrent chest discomfort prompting eventual ED evaluation. 1. Acute on Chronic Anemia with Prior Transfusion requirements: Admission hemoglobin 6.4, prior trend appears 7-9 with most recent 03/24/2020 hemoglobin 9.7, prior endoscopies without findings, stool guaiac negative, may necessitate Hematology evaluation, will admit to the PCU, maintain on telemetry monitoring, continued planned 2 u PRBC administration with repeat HH following, given no obvious GI source and prior unremarkable endoscopies will not reverse but hold coumadin with INR trending, allow oral intake, continue treatment as noted #2, #3 with especially ongoing diuresis given concurrent overload appearance and PRBC needs. 2. Paroxsymal atrial fibrillation with RVR: Prior history of cardioversion. EKG in ED w/ atrial fibrillation w/ RVR. Patient administered Cardizem 10 mg IV bolus x1 in ED. Will maintain on telemetry, obtain cardiac enzyme serial set, obtain magnesium level, recent 02/2020 ECHO thus will defer repeat, obtain TSH level. Holding Coumadin with continued INR trending as noted #1, will continue with dosage of home metoprolol and continue home amiodarone regimen given rate improvement following ED low dose cardizem. May need to consider cardiology consultation, following with Dr. Townsend. 3. Acute Decompensated CHF, Presumed Diastolic: CXR obtained in the ED w/ congestion as noted. Patient administered IV lasix in the ED, will maintain on cardiac telemetry, obtain cardiac enzyme series, obtain serial EKGs, continue IV lasix diuresis, monitor I/Os, maintain on intake restriction, continue medical therapy except hold on asa, coumadin given notable anemia, continue BB, statin. Will obtain TSH and magnesium level. Most recent ECHO noted 02/03/20 thus will not repeat with noted EF 60%, no evidence for diastolic dysfunction, severely enlarged left atrium, trivial MVI, mild MV stenosis, trivial TVI, mild aortic stenosis. May need to consider cardiology consultation, following with Dr. Townsend. 4. Supratherapeutic INR: Admission INR 5.8 with concurrently noted #1 hemoglobin 6.4, holding coumadin, trending INR given no obvious bleed and prior recent unremarkable endoscopies. 5. Jaundice, painless: Unclear timelineL Admission T bili 2.40, D Bili 0.64, AST/ALT 45/29, Alk phos 196, will obtain repeat CMP and liver/gallbladder US. 6. CAD: Status post NEFF to LAD, SVG?lateral CX and SVG to PDA 12/25/2018, holding aspirin, holding Coumadin given presentation as noted with interventions as noted #1, holding asa given #1, coumadin being held as noted, trending INR as noted, continue metoprolol, statin therapy. 7. Chronic Kidney Disease Stage III: Admission BUN/Cr 41/1.69, baseline renal function 1.3-1.5, repeat BMP in AM. 8. Valvular heart disease: Status post MVR with urine band #29. 9. Hypertension: Continue home regimen including metoprolol, Lasix IV as noted with hold parameters, PRN hydralazine. 10. Hyperlipidemia: Continue home statin regimen. 11. Chronic COPD: We will encourage head of bed, I-S, as needed albuterol. 12. History of colon cancer: Status post colectomy, remission. 13. Hypothyroidism: Continue home synthroid regimen, TSH and FT4. 14. BPH with chronic self-catheterization: We will continue patient on Flomax regimen and home straight cath regimen with as needed given Lasix usage. 15. Carotid artery disease: Holding aspirin, holding Coumadin as noted secondary to #1, continue statin, continue hypertensive regimen is noted. 16. History of VTE: Supratherapeutic INR with acute on chronic anemia, holding Coumadin, trending INR. 17. Former tobacco use: Encourage continued tobacco cessation. 18. DVT prophylaxis: SCDs, holding Coumadin, trending INR. 19. CODE status: Patient DEVORA is his and living will is not in place. Given significant medical history and disease course encouraged discussions with case management/social work for assistance setting up. Discussed CODE status at length including difference between FULL code, DNR-CCA and DNR-CC status. Following discussions about the differences in these status, requested Full Code status despite discussions of likely poor prognosis shoulder this occur. Advanced Care Planning Face to Face Time: 16 minutes. Inpatient E&M: 45510 Init Hosp L3 Procedures: 42133 Advncd Care Plan 30 Min
[2020-06-03] MEDS: Furosemide 20 MG/2 ML VIAL IV (07:14)
--- NOTE | 2020-06-03 07:29 | US_ITS ---
STUDY: ABDOMINAL ULTRASOUND - RIGHT UPPER QUADRANT REASON FOR VISIT: Male, 84 years old JAUNDICE ELEV BILIRUBIN TECHNIQUE: Ultrasound evaluation of the right upper quadrant was performed with real-time and static chavez-scale imaging. TECHNICAL QUALITY: Adequate. COMPARISON: None. FINDINGS: Liver: The liver measures 21.1 cm. There is normal echogenicity of the liver. The bile ducts are within normal limits. There is hepatic color flow. The direction of portal flow is hepatopetal. There is no demonstrated mass lesion. Gallbladder: Normal distended gallbladder. The gallbladder wall measures 2 mm. There is a negative sonographic Madison''s sign. There is no pericholecystic fluid. There are multiple echogenic structures within the gallbladder, consistent with multiple gallstones. Common Bile Duct (C.B.D.): The common bile duct measures 3 mm. Pancreas: Normal size of the head, body and tail of the pancreas. There is normal echogenicity of the pancreas. There is no demonstrated pancreatic mass or cyst. Right Kidney: Normal size of the right kidney. The right kidney measures 13.3 cm. Normal renal cortex. The right cortex measures 1.4 cm. 5 cm cyst lower pole the right kidney. There is no right hydronephrosis. US/Abdomen Limited IMPRESSION: Cholelithiasis. Electronically Signed: Diego Ferraro MD at 9:09 EST Tel , Service support ,
[2020-06-03 08:34] LABS: Magnesium 1.9 mg/dL (1.6-2.6); T4 Free Direct 1.57 ng/dL (0.76-1.46); Thyroid Stim Hormone (TSH) 5.89 uIU/mL (0.358-3.74)
[2020-06-03] MEDS: Ferrous Sulfate 325 MG Tablet PO ×2 (09:54→17:46)
[2020-06-03] MEDS: Levothyroxine 125 MCG Tablet PO (09:55)
[2020-06-03] MEDS: Amiodarone 200 MG Tablet 100 MG PO (09:55)
[2020-06-03] MEDS: Metoprolol(XL)Succ 50 MG Tablet PO (09:55)
[2020-06-03] MEDS: Famotidine 20 MG Tablet PO (09:56)
[2020-06-03] MEDS: Furosemide 40 MG/4 ML Vial IV ×2 (12:24→17:46)
--- NOTE | 2020-06-03 13:21 | PCM.PROGNOTE ---
Patient Problems: Active and Suspected Problems (Last Reviewed 05/12/20 @ 07:[address] Eligoi Garcia MD) Atrial fibrillation with rapid ventricular response (Acute) Acute on chronic anemia (Acute) Weakness (Acute) Respiratory failure (Acute) Acute exacerbation of CHF (congestive heart failure) (Acute) CHF (congestive heart failure) (Acute) care home current use of anticoagulant (Acute) ST segment depression (Acute) Dyspnea on exertion (Acute) Abnormal stress test (Acute) Pre-operative cardiovascular examination (Acute) Personal history of colonic polyps (Acute) Anemia (Acute) Subjective: Patient seen and examined. Complains of generalized weakness and fatigue. Otherwise denies current symptoms or complaints. - Physical Exam Vitals/I&O's: Vital Signs Temp Pulse Resp BP Pulse Ox 99.1 F 109 H 23 H 125/73 H 93 06/03/20 12:55 06/03/20 12:55 06/03/20 12:55 06/03/20 12:55 06/03/20 12:55 Oxygen Flow Rate (L/min) 6 Oxygen Delivery Method Nasal Cannula Weight: 222 lb 0.088 oz Body Mass Index (BMI) 30.1 Intake and Output for Last 24 Hours 06/01/20 06/02/20 06/03/20 23:59 23:59 23:59 Intake Total 880 / 880 Output Total 1250 / 1250 Balance -370 / -370 General: Alert, Oriented x3, Cooperative, - - Jaundice appearing HEENT: Atraumatic, PERRLA, EOMI, Normocephalic Neck: Supple, No JVD, Negative Carotid Bruits Lungs: Clear to auscultation, Diminished Cardiovascular: - - Atrial fibrillation, rate controlled Abdomen: Bowel Sounds Present, Soft, Non Tender, Non-Distended Extremities: No clubbing, No cyanosis, Edema - Bilateral lower extremities Skin: No rashes, No breakdown, - - Scattered ecchymosis Musculoskeletal: No Tenderness to Palpation of Joints or Extremities Neurological: Cranial nerves II-XII grossly intact, Neuro grossly intact Psych/Mental Status: Normal Affect, Appropriate Microbiology Past 72 Hours 06/03/20 05:35 Stool Stool Occult Blood (ELLIE) - Final 06/03/20 04:45 Mucosa - Nose SARS-CoV-2 Antigen (Rapid) - Final Laboratory Results 06/03/20 04:20: WBC 11.1 H, RBC 2.27 L, Hgb 6.4 L, Hct 21.8 L, MCV 96.0 H, MCH 28.2, MCHC 29.4 L, RDW Std Deviation 61.9 H, RDW Coeff of Marcelino 18.0 H, Plt Count 200, MPV 10.5, Immature Gran % (Auto) 0.400, Neut % (Auto) 88.8 H, Lymph % (Auto) 5.1 L, [place] % (Auto) 5.4, Eos % (Auto) 0.1, Baso % (Auto) 0.2, Absolute Neuts (auto) 9.9 H, Absolute Lymphs (auto) 0.57 L, Nucleated RBC % 0, Differential Comment SCANNED, Polychromasia 1+, Hypochromasia 3+, Acanthocytes (Spur) 2+ 06/03/20 04:20: PT 52.1 H, INR 5.8 H* 06/03/20 04:20: Sodium 136, Potassium 4.3, Chloride 105, Carbon Dioxide 21.0, Anion Gap 10, BUN 41 H, Creatinine 1.69 H, Estim Creat Clear Calc 35.71, Est GFR (MDRD) Af Amer 50 L, Est GFR (MDRD) Non-Af 41 L, BUN/Creatinine Ratio 24.3 H, Glucose 110 H, Calcium 9.4, Total Bilirubin 2.40 H, Direct Bilirubin 0.64 H, AST 45 H, ALT 29, Alkaline Phosphatase 196 H, Troponin I < 0.015, Total Protein 6.7, Albumin 2.5 L, Globulin 4.2 06/03/20 04:20: B-Natriuretic Peptide 216.7 H 06/03/20 04:20: Magnesium 1.9, TSH 5.89 H, Free T4 1.57 H 06/03/20 05:45: Blood Type O POSITIVE, Antibody Screen NEGATIVE, Crossmatch See Detail 06/03/20 08:37: Troponin I 0.023 06/03/20 10:20: Troponin I 0.031 Current Medications Acetaminophen (Acetaminophen 325 Mg Tablet) 650 mg PO Q6H PRN PRN PRN Reason: Pain Score 1-10/Temp > 100.7 F Al Hydroxide/Mg Hydroxide (Mag Hydrox/Al Hydrox/Simeth 30 Ml Udc) 30 ml PO Q6H PRN PRN PRN Reason: Gastric Burning Albuterol Sulfate (Albuterol 2.5 Mg/3 Ml Vial.Neb.) 2.5 mg INHALATION Q2H PRN PRN PRN Reason: Dyspnea, wheezing Amiodarone HCl (Amiodarone 200 Mg Tablet) 100 mg PO DAILY [facility] Last Admin: 06/03/20 09:55 Dose: 100 mg Documented by: Atorvastatin Calcium (Atorvastatin Calcium 80 Mg Tablet) 80 mg PO QHS [facility] Famotidine (Famotidine 20 Mg Tablet) 20 mg PO DAILY [facility] Last Admin: 06/03/20 09:56 Dose: 20 mg Documented by: Ferrous Sulfate (Ferrous Sulfate 325 Mg Tablet) 325 mg PO TIDCM [facility] Last Admin: 06/03/20 12:25 Dose: Not Given Documented by: Furosemide (Furosemide 40 Mg/4 Ml Vial) 40 mg IV BID@1000,1800 [facility] Last Admin: 06/03/20 12:24 Dose: 40 mg Documented by: Guaifenesin (Guaifenesin 10 Ml Udc (200mg/10ml)) 20 ml PO Q4H PRN PRN PRN Reason: COUGH Hydralazine HCl (Hydralazine 20 Mg/Ml Vial) 10 mg IV Q4H PRN PRN PRN Reason: SBP > 160 Sodium Chloride () 500 mls @ 15 mls/hr IV PRN PRN PRN Reason: Blood Transfusion Sodium Chloride () 250 mls @ 15 mls/hr IV .[id number] PRN PRN Reason: Saline Flush Sodium Chloride () 250 mls @ 15 mls/hr IV .[id number] PRN PRN Reason: Additional IVPB Infusion Levothyroxine Sodium (Levothyroxine 125 Mcg Tablet) 125 mcg PO DAILY@0600 [facility] Last Admin: 06/03/20 09:55 Dose: 125 mcg Documented by: Magnesium Hydroxide (Magnesium Hydroxide 30 Ml Udc) 30 ml PO DAILY PRN PRN PRN Reason: Constipation Melatonin (Melatonin 3 Mg Tablet) 3 mg PO QHS PRN PRN PRN Reason: INSOMNIA Metoprolol Succinate (Metoprolol(Xl)Succ 50 Mg Tablet) 50 mg PO DAILY [facility] Last Admin: 06/03/20 09:55 Dose: 50 mg Documented by: Morphine Sulfate (Morphine 2 Mg/Ml Syringe) 2 mg IV Q3H PRN PRN PRN Reason: Pain Score 6-10 Nitroglycerin (Nitroglycerin (Inpatient Use) 0.4 Mg Tab.Subl) 0.4 mg SUBLINGUAL Q5M PRN PRN Reason: CARDIAC/CHEST PAIN Ondansetron HCl (Ondansetron 4 Mg/2 Ml Vial) 4 mg IV Q8H PRN PRN PRN Reason: NAUSEA/VOMITING Oxycodone HCl (Oxycodone 5 Mg Tablet) 5 mg PO Q4H PRN PRN PRN Reason: Pain Score 4-5 Prochlorperazine Edisylate (Prochlorperazine 10 Mg/2 Ml Vial) 5 mg IV Q4H PRN PRN PRN Reason: Breakthrough Nausea/Vomiting Psyllium Hydrophilic Mucilloid (Psyllium 1 Packet) 1 packet PO DAILY PRN PRN PRN Reason: Constipation Senna/Docusate Sodium (Senna/Docusate Sodium 1 Tablet) 2 tablet PO BID PRN PRN PRN Reason: Constipation Sodium Chloride (0.9% Saline Lock 10 Ml Syringe) 10 - 40 ml IV UD PRN PRN Reason: SALINE FLUSH Tamsulosin HCl (Tamsulosin Hcl 0.4 Mg Capsule) 0.4 mg PO QHS TITO Throat Lozenges (Benzocaine/Menthol 1 Lozenge) 1 lozenge MUCOUS MEM Q2H PRN PRN PRN Reason: SORE THROAT Medical Necessity - Tobacco Use Smoking Status: Former smoker Tobacco Use: Non-smoker Assessment/Plan All Active Problems (Last Reviewed 05/12/20 @ 07:[address] Eligio Garcia MD) Atrial fibrillation with rapid ventricular response (Acute) Acute on chronic anemia (Acute) Weakness (Acute) Respiratory failure (Acute) Acute exacerbation of CHF (congestive heart failure) (Acute) CHF (congestive heart failure) (Acute) care home current use of anticoagulant (Acute) ST segment depression (Acute) Dyspnea on exertion (Acute) Abnormal stress test (Acute) Pre-operative cardiovascular examination (Acute) Personal history of colonic polyps (Acute) Anemia (Acute) Blood clots in stool (Resolved) 1. Acute on chronic anemia, supratherapeutic INR-hemoglobin 6.4. 2 units PRBC ordered. Trend H&H. Patient states he has had prior endoscopies for ongoing anemia with no evidence of GI bleeding. Coumadin on hold. Continue iron supplementation. Stool for occult blood negative. 2. Paroxysmal atrial fibrillation with RVR-rate now controlled. Continue amiodarone, metoprolol 3. Acute hypoxic respiratory insufficiency secondary to acute diastolic CHF and possible left lower lobe pneumonia-BNP 217. Chest x-ray with congestion, possible left lower lobe infiltrate. Echo February 2020 demonstrated an EF of 60%, no evidence of diastolic dysfunction. Mild aortic stenosis. Continue IV Lasix. Strict I&O. Daily weight. Patient continues to require high flow oxygen despite diuresis. Will begin IV azithromycin and IV Rocephin empirically. Urine for strep and Legionella. Patient with mild leukocytosis and low-grade fever. Continue supplement oxygen to maintain O2 sat above 90%. 4. Urinary retention/BPH- Planned for TURP with Dr. Garcia 06/09/2020. Briones placed. Patient previously straight cathing at home. Continue Flomax. 5. Elevated bilirubin, jaundice appearance-abdominal ultrasound shows cholelithiasis. Negative Madison sign. Liver ultrasound pending. Trend CMP. Asymptomatic. 6. CAD with history of previous interventions-aspirin on hold. Continue statin, beta-mack. 7. Chronic kidney disease stage III-at baseline, trend BMP. 8. Hypertension-stable, continue current regimen. 9. Hyperlipidemia-continue statin. 10. Chronic COPD-as needed albuterol aerosol. 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 12. History of colon cancer status post colectomy-in remission. 13. Hypothyroidism-TSH 5.8. Free T4 1.5. Continue current Synthroid regimen. DVT prophylaxis-Coumadin on hold, supratherapeutic INR This patient was seen by JOSÉ MANUEL Stephens under the supervision of Dr. Mckinnon.
--- NOTE | 2020-06-03 13:35 | CASEMGMT ---
ARTI HARRIS assessment: Face to Face with patient for initial transition planning/care coordination assessment. ARTI HARRIS introduced self and role at [facility], pt voices understanding and consents to assessment at this time. Pt is sitting up in bed in no distress at this time. Pt is A/Ox4 at this time and answers all questions appropriately at this time. Pt is currently on 6L nc at this time. Care providers, pharmacy, and demographics verified at this time. Presentation: Fall, pt c/o increased weakness, jaundice, afib Admitting dx: Acute on chronic asthma, CHF, PAF PCP: [facility] Specialists: [facility] Preferred [facility]acy: [facility] Insurance: MCR A/B, [employer] Prescription Benefit: [employer] Living Will/HPOA: Pt states does not have LW/HPOA and declines AD info at this time. LNOK: Corinne Bradley, ; Prem Alva, son Living Arrangements: Pt states lives with in 1 story home and states no concerns at home at this time. Pt states is independent with ADL's and cares for . Transportation: Pt states drives self and states no transportation concerns at this time. DME/HHC: Pt states has a cane and walker at home and states no need for any further DME at this time. Pt states would like [employer] for home oxygen, if qualifies at discharge. Pt states no hx of HHC or SNF in the past. Pt states no concerns with going home at time of discharge. Pt states is retired. Pt states quit smoking cigarettes 24 years ago but does drink ETOH occasionally. Pt states no further concerns/needs at this time. CM to follow for home oxygen need, PT/OT notes and any further discharge planning/needs. Advised pt to ask for CM if any further questions/concerns/needs arise, voices understanding. Pt Goal: Home Plan[place] ARTI HARRIS
[2020-06-03 17:48] LABS: Hematocrit 24.2 % (40-54); Hemoglobin 7.4 g/dL (13.0-16.5)
[2020-06-03] MEDS: Ipratropium/Albuterol Sulfate 3 ML AMPUL.NEB INHALATION (18:38)
[2020-06-03 19:45] LABS: Hematocrit 24.4 % (40-54); Hemoglobin 7.5 g/dL (13.0-16.5)
[2020-06-03] MEDS: Tamsulosin HCl 0.4 MG Capsule PO (21:22)
[2020-06-03] MEDS: Atorvastatin Calcium 80 MG Tablet PO (21:22)
[2020-06-03 21:58] LABS: Hematocrit 23.9 % (40-54); Hemoglobin 7.5 g/dL (13.0-16.5)
[2020-06-04] VITALS (18 sets, daily range): BP systolic 95–115; BP diastolic 50–59; PULSE 85–107; RESP 16–24; TEMP 36.4–36.9; O2SAT 91–96
[2020-06-04] MEDS: Levothyroxine 125 MCG Tablet PO (05:01)
--- NOTE | 2020-06-04 05:55 | EKG12_ITS ---
Test Reason : AM EKG Blood Pressure : / mmHG Vent. Rate : 093 BPM Atrial Rate : 156 BPM P-R Int : 000 ms QRS Dur : 114 ms QT Int : 354 ms P-R-T Axes : 000 -25 109 degrees QTc Int : 440 ms Atrial fibrillation Nonspecific ST and T wave abnormality Abnormal ECG When compared with ECG of 03-JUN-2020 04:06, MANUAL COMPARISON REQUIRED, DATA IS UNCONFIRMED Confirmed by KRYSTIN MIJARES, GARY ([id number]), editor producer JOANA LOVELACE ([id number]) on 06/06/2020 9:08:41 AM Referred By: MARIS Confirmed By:GARY MCCLELLAND MD
[2020-06-04] MEDS: Ipratropium/Albuterol Sulfate 3 ML AMPUL.NEB INHALATION ×4 (06:58→19:31)
[2020-06-04 07:48] LABS: Absolute Lymphocyte Count 0.93 X10^3/uL (0.83-4.51); Absolute Neutrophil Count 7.5 X10^3/uL (2.0-7.7); Basophil# 0.03 X10^3/uL; Basophil% 0.3 % (0-1); Eosinophil# 0.17 X10^3/uL; Eosinophils% 1.8 % (0-5); Hematocrit 24.3 % (40-54); Hemoglobin 7.4 g/dL (13.0-16.5); Lymphocyte # 0.93 X10^3/ul (4.0); Lymphocyte % 9.9 % (19-41); Mean Corp Hgb Conc 30.5 g/dL (32-36); Mean Corpuscular Hgb 28.7 pg (27.0-32.0); Mean Corpuscular Volume 94.2 fL (80-94); Mean Platelet Vol. 11.2 fl (6.2-12.0); Monocyte# 0.79 X10^3/uL; Monocyte% 8.4 % (0-10); NRBC Flagged by Analyzer 0 % (0-5); Neutrophil # 7.47 X10^3/uL (2.7-7.7); Neutrophil % 79.1 % (47-70); Platelet Count 214 K/mm3 (150-450); RBC Distribution Width CV 17.8 % (11.6-14.6); RBC Distribution Width SD 60.8 fl (35.1-43.9); Red Blood Count 2.58 M/mm3 (4.6-6.2); White Blood Count 9.4 K/mm3 (4.4-11.0)
[2020-06-04 07:51] LABS: Prothrombin Time (Protime)PT. 49.1 SECONDS (11.7-14.9)
[2020-06-04 08:06] LABS: ALB/GLOB Ratio 0.5 RATIO (0.9-2.4); AST(SGOT) 34 U/L (15-37); Alanine Aminotransfer ALT/SGPT 21 U/L (16-61); Albumin, Serum 2.1 g/dL (3.2-5.0); Alkaline Phosphatase 177 U/L (45-117); Anion Gap 7 (5-15); BUN 37 mg/dL (7-18); BUN/Creat Ratio 25.3 RATIO (10-20); Calcium,Total 9.1 mg/dL (8.5-10.1); Chloride 105 mmol/L (98-107); Cholesterol 51 mg/dL (200); Creatinine, Serum 1.46 mg/dL (0.70-1.30); EST Glomerular Filtration Rate 49 mL/min (>60); Est Glom Filt Rate - Afr Amer 59 mL/min (>60); Estimated Creatinine Clearance 41.34 ml/min; Globulin 3.9 g/dL (2.2-4.2); Glucose 72 mg/dL (74-106); High Density Lipoprotein 27 mg/dL; Potassium 3.6 mmol/L (3.5-5.1); Sodium Level 138 mmol/L (136-145); Triglycerides 61 mg/dL; Very Low Density Lipoprotein 12 mg/dL (5-40)
[2020-06-04 08:14] LABS: International Normalized Ratio 5.4
[2020-06-04] MEDS: Metoprolol(XL)Succ 50 MG Tablet PO (09:16)
[2020-06-04] MEDS: Famotidine 20 MG Tablet PO (09:16)
[2020-06-04] MEDS: Furosemide 40 MG/4 ML Vial IV ×2 (09:17→17:07)
[2020-06-04] MEDS: Ferrous Sulfate 325 MG Tablet PO ×2 (09:17→17:07)
[2020-06-04] MEDS: 0.9% Saline Lock 10 ML Syringe IV ×2 (09:17→17:07)
[2020-06-04] MEDS: Amiodarone 200 MG Tablet 100 MG PO (09:17)
--- NOTE | 2020-06-04 11:23 | PN_ITS ---
<Melinda Busby [employer] - Last Filed: 06/04/20 11:31> Patient Problems: Active and Suspected Problems (Last Reviewed 05/12/20 @ 07:[address] 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 States he feels great. Denies shortness of breath however remains on 6 L supplemental oxygen. Denies cough, fever, chills. - Physical Exam Vitals/I&O's: Vital Signs Temp Pulse Resp BP Pulse Ox 97.6 F L 96 20 H 115/57 L 93 06/04/20 09:10 06/04/20 10:23 06/04/20 10:23 06/04/20 09:16 06/04/20 09:10 Oxygen Flow Rate (L/min) 6.5 Oxygen Delivery Method Nasal Cannula Weight: 222 lb 0.088 oz Body Mass Index (BMI) 30.1 Intake and Output for Last 24 Hours 06/02/20 06/03/20 06/04/20 23:59 23:59 23:59 Intake Total 1825 / 1945 410 / 410 Output Total 1975 / 3125 1550 / 1550 Balance -150 / -1180 -1140 / -1140 General: Alert, Oriented x3, Cooperative HEENT: Atraumatic, PERRLA, EOMI, Normocephalic Neck: Supple, No JVD, Negative Carotid Bruits Lungs: Diminished, - - Crackles bilateral bases Cardiovascular: - - Atrial fibrillation, rate controlled Abdomen: Bowel Sounds Present, Soft, Non Tender, Non-Distended Extremities: No clubbing, No cyanosis, Capillary Refill Less than 3 Seconds, Edema - Bilateral lower extremities Skin: No rashes, No breakdown Musculoskeletal: No Tenderness to Palpation of Joints or Extremities Neurological: Cranial nerves II-XII grossly intact, Neuro grossly intact Psych/Mental Status: Normal Affect, Appropriate Microbiology Past 72 Hours 06/03/20 13:15 Urine Catheter - Briones Legionella Antigen - Final 06/03/20 13:15 Urine Catheter - Briones Streptococcus pneumoniae Antigen (M - Final 06/03/20 05:35 Stool Stool Occult Blood (ELLIE) - Final 06/03/20 04:45 Mucosa - Nose SARS-CoV-2 Antigen (Rapid) - Final Laboratory Results 06/03/20 05:45: Blood Type O POSITIVE, Antibody Screen NEGATIVE, Crossmatch See Detail 06/03/20 10:20: Troponin I 0.031 06/03/20 17:30: Hgb 7.4 L, Hct 24.2 L 06/03/20 19:35: Hgb 7.5 L, Hct 24.4 L 06/03/20 21:50: Hgb 7.5 L, Hct 23.9 L 06/04/20 05:22: WBC 9.4, RBC 2.58 L, Hgb 7.4 L, Hct 24.3 L, MCV 94.2 H, MCH 28.7, MCHC 30.5 L, RDW Std Deviation 60.8 H, RDW Coeff of Marcelino 17.8 H, Plt Count 214, MPV 11.2, Immature Gran % (Auto) 0.500, Neut % (Auto) 79.1 H, Lymph % (Auto) 9.9 L, Hutchinson % (Auto) 8.4, Eos % (Auto) 1.8, Baso % (Auto) 0.3, Absolute Neuts (auto) 7.5, Absolute Lymphs (auto) 0.93, Nucleated RBC % 0 06/04/20 05:22: PT 49.1 H, INR 5.4 H* 06/04/20 05:22: Sodium 138, Potassium 3.6, Chloride 105, Carbon Dioxide 26.0, Anion Gap 7, BUN 37 H, Creatinine 1.46 H, Estim Creat Clear Calc 41.34, Est GFR (MDRD) Af Amer 59 L, Est GFR (MDRD) Non-Af 49 L, BUN/Creatinine Ratio 25.3 H, Glucose 72 L, Calcium 9.1, Total Bilirubin 1.60 H, AST 34, ALT 21, Alkaline Phosphatase 177 H, Total Protein 6.0 L, Albumin 2.1 L, Globulin 3.9, Albumin/Globulin Ratio 0.5 L, Triglycerides 61, Cholesterol 51, LDL Cholesterol 12, VLDL Cholesterol 12, HDL Cholesterol 27 L Current Medications Acetaminophen (Acetaminophen 325 Mg Tablet) 650 mg PO Q6H PRN PRN PRN Reason: Pain Score 1-10/Temp > 100.7 F Al Hydroxide/Mg Hydroxide (Mag Hydrox/Al Hydrox/Simeth 30 Ml Udc) 30 ml PO Q6H PRN PRN PRN Reason: Gastric Burning Albuterol Sulfate (Albuterol 2.5 Mg/3 Ml Vial.Neb.) 2.5 mg INHALATION Q2H PRN PRN PRN Reason: Dyspnea, wheezing Albuterol/Ipratropium (Ipratropium/Albuterol Sulfate 3 Ml Ampul.Neb) 3 ml INHALATION Q4HWA.RT [facility] Last Admin: 06/04/20 10:23 Dose: 3 ml Documented by: Amiodarone HCl (Amiodarone 200 Mg Tablet) 100 mg PO DAILY [facility] Last Admin: 06/04/20 09:17 Dose: 100 mg Documented by: Atorvastatin Calcium (Atorvastatin Calcium 80 Mg Tablet) 80 mg PO QHS [facility] Last Admin: 06/03/20 21:22 Dose: 80 mg Documented by: Famotidine (Famotidine 20 Mg Tablet) 20 mg PO DAILY [facility] Last Admin: 06/04/20 09:16 Dose: 20 mg Documented by: Ferrous Sulfate (Ferrous Sulfate 325 Mg Tablet) 325 mg PO TIDCM [facility] Last Admin: 06/04/20 09:17 Dose: 325 mg Documented by: Furosemide (Furosemide 40 Mg/4 Ml Vial) 40 mg IV BID@1000,1800 [facility] Last Admin: 06/04/20 09:17 Dose: 40 mg Documented by: Guaifenesin (Guaifenesin 10 Ml Udc (200mg/10ml)) 20 ml PO Q4H PRN PRN PRN Reason: COUGH Hydralazine HCl (Hydralazine 20 Mg/Ml Vial) 10 mg IV Q4H PRN PRN PRN Reason: SBP > 160 Sodium Chloride () 500 mls @ 15 mls/hr IV PRN PRN PRN Reason: Blood Transfusion Sodium Chloride () 250 mls @ 15 mls/hr IV .[id number] PRN PRN Reason: Saline Flush Sodium Chloride () 250 mls @ 15 mls/hr IV .[id number] PRN PRN Reason: Additional IVPB Infusion Ceftriaxone Sodium 2 gm/ (Sodium Chloride) 50 mls @ 100 mls/hr IV Q24 [facility] Stop: 06/11/20 10:01 Last Infusion: 06/04/20 10:00 Dose: Infused Documented by: Azithromycin 500 mg/ Dextrose 255 mls @ 250 mls/hr IV Q24 [facility] Stop: 06/09/20 10:01 Last Admin: 06/04/20 10:15 Dose: 250 mls/hr Documented by: Levothyroxine Sodium (Levothyroxine 125 Mcg Tablet) 125 mcg PO DAILY@0600 [facility] Last Admin: 06/04/20 05:01 Dose: 125 mcg Documented by: Magnesium Hydroxide (Magnesium Hydroxide 30 Ml Udc) 30 ml PO DAILY PRN PRN PRN Reason: Constipation Melatonin (Melatonin 3 Mg Tablet) 3 mg PO QHS PRN PRN PRN Reason: INSOMNIA Metoprolol Succinate (Metoprolol(Xl)Succ 50 Mg Tablet) 50 mg PO DAILY [facility] Last Admin: 06/04/20 09:16 Dose: 50 mg Documented by: Morphine Sulfate (Morphine 2 Mg/Ml Syringe) 2 mg IV Q3H PRN PRN PRN Reason: Pain Score 6-10 Nitroglycerin (Nitroglycerin (Inpatient Use) 0.4 Mg Tab.Subl) 0.4 mg SUBLINGUAL Q5M PRN PRN Reason: CARDIAC/CHEST PAIN Ondansetron HCl (Ondansetron 4 Mg/2 Ml Vial) 4 mg IV Q8H PRN PRN PRN Reason: NAUSEA/VOMITING Oxycodone HCl (Oxycodone 5 Mg Tablet) 5 mg PO Q4H PRN PRN PRN Reason: Pain Score 4-5 Prochlorperazine Edisylate (Prochlorperazine 10 Mg/2 Ml Vial) 5 mg IV Q4H PRN PRN PRN Reason: Breakthrough Nausea/Vomiting Psyllium Hydrophilic Mucilloid (Psyllium 1 Packet) 1 packet PO DAILY PRN PRN PRN Reason: Constipation Senna/Docusate Sodium (Senna/Docusate Sodium 1 Tablet) 2 tablet PO BID PRN PRN PRN Reason: Constipation Sodium Chloride (0.9% Saline Lock 10 Ml Syringe) 10 - 40 ml IV UD PRN PRN Reason: SALINE FLUSH Last Admin: 06/04/20 09:17 Dose: 10 ml Documented by: Tamsulosin HCl (Tamsulosin Hcl 0.4 Mg Capsule) 0.4 mg PO QHS [facility] Last Admin: 06/03/20 21:22 Dose: 0.4 mg Documented by: Throat Lozenges (Benzocaine/Menthol 1 Lozenge) 1 lozenge MUCOUS MEM Q2H PRN PRN PRN Reason: SORE THROAT Medical Necessity - Tobacco Use Smoking Status: Former smoker Tobacco Use: Non-smoker Assessment/Plan All Active Problems (Last Reviewed 05/12/20 @ 07:[address] 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 Acute on chronic anemia, supratherapeutic INR-hemoglobin 6.4 on admission. S/P 2 units PRBC. Trend H&H. Patient states he has had prior endoscopies for ongoing anemia with no evidence of GI bleeding. Coumadin on hold. Continue iron supplementation. Stool for occult blood negative. 2. Paroxysmal atrial fibrillation with RVR-rate now controlled. Continue amiodarone, metoprolol 3. Acute hypoxic respiratory insufficiency secondary to acute diastolic CHF and possible left lower lobe pneumonia-BNP 217. Chest x-ray with congestion, possible left lower lobe infiltrate. Echo February 2020 demonstrated an EF of 60%, no evidence of diastolic dysfunction. Mild aortic stenosis. Continue IV Lasix. Strict I&O. Daily weight. Continue IV azithromycin and IV Rocephin. Leukocytosis and low-grade fever resolved. Continue supplement oxygen to maintain O2 sat above 90%. 4. Urinary retention/BPH- Planned for TURP with Dr. Garcia 06/09/2020. Briones placed. Patient previously straight cathing at home. Continue Flomax. 5. Elevated bilirubin, jaundice appearance-abdominal ultrasound shows cholelithiasis. Negative Madison sign. Bilirubin trended down. Asymptomatic. Trend CMP. 6. CAD with history of previous interventions-aspirin on hold. Continue statin, beta-mack. 7. Chronic kidney disease stage III-at baseline, trend BMP. 8. Hypertension-stable, continue current regimen. 9. Hyperlipidemia-continue statin. 10. Chronic COPD-as needed albuterol aerosol. 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 12. History of colon cancer status post colectomy-in remission. 13. Hypothyroidism-TSH 5.8. Free T4 1.5. Continue current Synthroid regimen. DVT prophylaxis-Coumadin on hold, supratherapeutic INR This patient was seen by JOSÉ MANUEL Stephens under the supervision of Dr. Mckinnon. <Prem Mckinnon - Last Filed: 06/04/20 11:48> - Physical Exam Vitals/I&O's: Vital Signs Temp Pulse Resp BP Pulse Ox 97.5 F L 103 H 20 H 101/53 L 96 06/04/20 11:10 06/04/20 11:10 06/04/20 11:10 06/04/20 11:10 06/04/20 11:10 Oxygen Flow Rate (L/min) 6 Oxygen Delivery Method Room Air Weight: 100.7 kg Body Mass Index (BMI) 30.1 Intake and Output for Last 24 Hours 06/02/20 06/03/20 06/04/20 23:59 23:59 23:59 Intake Total 1825 / 1945 665 / 665 Output Total 1975 / 3125 1550 / 1550 Balance -150 / -1180 -885 / -885 Microbiology Past 72 Hours 06/03/20 13:15 Urine Catheter - Briones Legionella Antigen - Final 06/03/20 13:15 Urine Catheter - Briones Streptococcus pneumoniae Antigen (M - Final 06/03/20 05:35 Stool Stool Occult Blood (ELLIE) - Final 06/03/20 04:45 Mucosa - Nose SARS-CoV-2 Antigen (Rapid) - Final Laboratory Results 06/03/20 05:45: Blood Type O POSITIVE, Antibody Screen NEGATIVE, Crossmatch See Detail 06/03/20 17:30: Hgb 7.4 L, Hct 24.2 L 06/03/20 19:35: Hgb 7.5 L, Hct 24.4 L 06/03/20 21:50: Hgb 7.5 L, Hct 23.9 L 06/04/20 05:22: WBC 9.4, RBC 2.58 L, Hgb 7.4 L, Hct 24.3 L, MCV 94.2 H, MCH 28.7, MCHC 30.5 L, RDW Std Deviation 60.8 H, RDW Coeff of Marcelino 17.8 H, Plt Count 214, MPV 11.2, Immature Gran % (Auto) 0.500, Neut % (Auto) 79.1 H, Lymph % (Auto) 9.9 L, Hutchinson % (Auto) 8.4, Eos % (Auto) 1.8, Baso % (Auto) 0.3, Absolute Neuts (auto) 7.5, Absolute Lymphs (auto) 0.93, Nucleated RBC % 0 06/04/20 05:22: PT 49.1 H, INR 5.4 H* 06/04/20 05:22: Sodium 138, Potassium 3.6, Chloride 105, Carbon Dioxide 26.0, Anion Gap 7, BUN 37 H, Creatinine 1.46 H, Estim Creat Clear Calc 41.34, Est GFR (MDRD) Af Amer 59 L, Est GFR (MDRD) Non-Af 49 L, BUN/Creatinine Ratio 25.3 H, Glucose 72 L, Calcium 9.1, Total Bilirubin 1.60 H, AST 34, ALT 21, Alkaline Phosphatase 177 H, Total Protein 6.0 L, Albumin 2.1 L, Globulin 3.9, Albumin/ Globulin Ratio 0.5 L, Triglycerides 61, Cholesterol 51, LDL Cholesterol 12, VLDL Cholesterol 12, HDL Cholesterol 27 L Current Medications Acetaminophen (Acetaminophen 325 Mg Tablet) 650 mg PO Q6H PRN PRN PRN Reason: Pain Score 1-10/Temp > 100.7 F Al Hydroxide/Mg Hydroxide (Mag Hydrox/Al Hydrox/Simeth 30 Ml Udc) 30 ml PO Q6H PRN PRN PRN Reason: Gastric Burning Albuterol Sulfate (Albuterol 2.5 Mg/3 Ml Vial.Neb.) 2.5 mg INHALATION Q2H PRN PRN PRN Reason: Dyspnea, wheezing Albuterol/Ipratropium (Ipratropium/Albuterol Sulfate 3 Ml Ampul.Neb) 3 ml INHALATION Q4HWA.RT [facility] Last Admin: 06/04/20 10:23 Dose: 3 ml Documented by: Amiodarone HCl (Amiodarone 200 Mg Tablet) 100 mg PO DAILY [facility] Last Admin: 06/04/20 09:17 Dose: 100 mg Documented by: Atorvastatin Calcium (Atorvastatin Calcium 80 Mg Tablet) 80 mg PO QHS [facility] Last Admin: 06/03/20 21:22 Dose: 80 mg Documented by: Famotidine (Famotidine 20 Mg Tablet) 20 mg PO DAILY [facility] Last Admin: 06/04/20 09:16 Dose: 20 mg Documented by: Ferrous Sulfate (Ferrous Sulfate 325 Mg Tablet) 325 mg PO TIDCM [facility] Last Admin: 06/04/20 09:17 Dose: 325 mg Documented by: Furosemide (Furosemide 40 Mg/4 Ml Vial) 40 mg IV BID@1000,1800 [facility] Last Admin: 06/04/20 09:17 Dose: 40 mg Documented by: Guaifenesin (Guaifenesin 10 Ml Udc (200mg/10ml)) 20 ml PO Q4H PRN PRN PRN Reason: COUGH Hydralazine HCl (Hydralazine 20 Mg/Ml Vial) 10 mg IV Q4H PRN PRN PRN Reason: SBP > 160 Sodium Chloride () 500 mls @ 15 mls/hr IV PRN PRN PRN Reason: Blood Transfusion Sodium Chloride () 250 mls @ 15 mls/hr IV .[id number] PRN PRN Reason: Saline Flush Sodium Chloride () 250 mls @ 15 mls/hr IV .[id number] PRN PRN Reason: Additional IVPB Infusion Ceftriaxone Sodium 2 gm/ (Sodium Chloride) 50 mls @ 100 mls/hr IV Q24 [facility] Stop: 06/11/20 10:01 Last Infusion: 06/04/20 10:00 Dose: Infused Documented by: Azithromycin 500 mg/ Dextrose 255 mls @ 250 mls/hr IV Q24 [facility] Stop: 06/09/20 10:01 Last Infusion: 06/04/20 11:20 Dose: Infused Documented by: Levothyroxine Sodium (Levothyroxine 125 Mcg Tablet) 125 mcg PO DAILY@0600 [facility] Last Admin: 06/04/20 05:01 Dose: 125 mcg Documented by: Magnesium Hydroxide (Magnesium Hydroxide 30 Ml Udc) 30 ml PO DAILY PRN PRN PRN Reason: Constipation Melatonin (Melatonin 3 Mg Tablet) 3 mg PO QHS PRN PRN PRN Reason: INSOMNIA Metoprolol Succinate (Metoprolol(Xl)Succ 50 Mg Tablet) 50 mg PO DAILY [facility] Last Admin: 06/04/20 09:16 Dose: 50 mg Documented by: Morphine Sulfate (Morphine 2 Mg/Ml Syringe) 2 mg IV Q3H PRN PRN PRN Reason: Pain Score 6-10 Nitroglycerin (Nitroglycerin (Inpatient Use) 0.4 Mg Tab.Subl) 0.4 mg SUBLINGUAL Q5M PRN PRN Reason: CARDIAC/CHEST PAIN Ondansetron HCl (Ondansetron 4 Mg/2 Ml Vial) 4 mg IV Q8H PRN PRN PRN Reason: NAUSEA/VOMITING Oxycodone HCl (Oxycodone 5 Mg Tablet) 5 mg PO Q4H PRN PRN PRN Reason: Pain Score 4-5 Prochlorperazine Edisylate (Prochlorperazine 10 Mg/2 Ml Vial) 5 mg IV Q4H PRN PRN PRN Reason: Breakthrough Nausea/Vomiting Psyllium Hydrophilic Mucilloid (Psyllium 1 Packet) 1 packet PO DAILY PRN PRN PRN Reason: Constipation Senna/Docusate Sodium (Senna/Docusate Sodium 1 Tablet) 2 tablet PO BID PRN PRN PRN Reason: Constipation Sodium Chloride (0.9% Saline Lock 10 Ml Syringe) 10 - 40 ml IV UD PRN PRN Reason: SALINE FLUSH Last Admin: 06/04/20 09:17 Dose: 10 ml Documented by: Tamsulosin HCl (Tamsulosin Hcl 0.4 Mg Capsule) 0.4 mg PO QHS [facility] Last Admin: 06/03/20 21:22 Dose: 0.4 mg Documented by: Throat Lozenges (Benzocaine/Menthol 1 Lozenge) 1 lozenge MUCOUS MEM Q2H PRN PRN PRN Reason: SORE THROAT Assessment/Plan This patient was seen in conjunction with JOSÉ MANUEL Stephens . I have independently interviewed and examined the patient and reviewed pertinent historical, laboratory, and other data. Please refer to JOSÉ MANUEL Stephens note for details of this patient's presentation, findings, and recommendations. I have reviewed JOSÉ MANUEL Stephens note and concur with documented findings. In brief, Patient is a 84-year-old male with progressive generalized weakness with falls found to have significant anemia admitted to monitored bed for further management, transfused with 2 unit PRBC following admission Physical Examination: GENERAL: cooperative HEENT: Atraumatic; EYES; Anicteric, Normal Conjunctiva NECK; supple, normal thyroid, RESPIRATORY: Diminished to auscultation CARDIOVASCULAR: Irregular S1-S2, tachycardic GI: soft, normoactive bowel sounds, : No Renal angle tenderness; EXTREMITIES: No edema, no clubbing, MUSCULOSKELETAL: no muscle waisting NEURO: Awake; no lateralizing signs. SKIN: No Rash PSYCH; Flat affect 1. Symptomatic anemia 2. Anemia secondary to anemia of chronic disorder 3. Coagulopathy secondary to Coumadin use 4. Paroxysmal A. fib with variable rate 5. Acute respiratory insufficiency 6. Suspected community-acquired pneumonia 7. Acute congestive heart failure preserved ejection fraction 8. Dyslipidemia 9. Coronary artery disease 10. History of colon cancer status post colectomy in remission 11. Chronic kidney disease stage III 12. Essential hypertension 18. COPD 14. Hypothyroidism Recommendations: 1. I have discussed the results of my overview and impressions with the patient 2. Options for management were reviewed Inpatient E&M: [id number] [facility] L3
[2020-06-04] MEDS: Atorvastatin Calcium 80 MG Tablet PO (22:12)
[2020-06-04] MEDS: Tamsulosin HCl 0.4 MG Capsule PO (22:12)
[2020-06-05] VITALS (23 sets, daily range): BP systolic 92–107; BP diastolic 45–63; PULSE 77–116; RESP 18–22; TEMP 36.6–37.1; O2SAT 93–98
[2020-06-05] MEDS: Levothyroxine 125 MCG Tablet PO (05:28)
[2020-06-05 05:55] LABS: Hemoglobin 6.9 g/dL (13.0-16.5); Mean Corpuscular Hgb 28.3 pg (27.0-32.0); Mean Corpuscular Volume 94.3 fL (80-94); Mean Platelet Vol. 10.9 fl (6.2-12.0); Platelet Count 207 K/mm3 (150-450); RBC Distribution Width CV 17.2 % (11.6-14.6); RBC Distribution Width SD 59.1 fl (35.1-43.9); Red Blood Count 2.44 M/mm3 (4.6-6.2); White Blood Count 8.5 K/mm3 (4.4-11.0)
[2020-06-05 06:08] LABS: International Normalized Ratio 4.8
[2020-06-05 06:17] LABS: Anion Gap 6 (5-15); BUN 35 mg/dL (7-18); BUN/Creat Ratio 25.9 RATIO (10-20); Calcium,Total 8.9 mg/dL (8.5-10.1); Chloride 101 mmol/L (98-107); Creatinine, Serum 1.35 mg/dL (0.70-1.30); EST Glomerular Filtration Rate 53 mL/min (>60); Est Glom Filt Rate - Afr Amer 65 mL/min (>60); Estimated Creatinine Clearance 44.71 ml/min; Glucose 91 mg/dL (74-106); Potassium 3.6 mmol/L (3.5-5.1); Sodium Level 135 mmol/L (136-145)
[2020-06-05 06:21] LABS: Prothrombin Time (Protime)PT. 45.3 SECONDS (11.7-14.9)
[2020-06-05] MEDS: 0.9% Saline Lock 10 ML Syringe IV ×4 (09:12→21:50)
[2020-06-05] MEDS: Furosemide 40 MG/4 ML Vial IV ×3 (09:15→21:50)
[2020-06-05] MEDS: Famotidine 20 MG Tablet PO (09:15)
[2020-06-05] MEDS: Ferrous Sulfate 325 MG Tablet PO ×2 (09:15→16:42)
[2020-06-05] MEDS: Amiodarone 200 MG Tablet 100 MG PO (09:17)
[2020-06-05] MEDS: Metoprolol(XL)Succ 50 MG Tablet PO (09:17)
--- NOTE | 2020-06-05 10:39 | RAD_ITS ---
STUDY: X-RAY CHEST REASON FOR EXAM: Male, 84 years old. HYPOXIA, HX CHF TECHNIQUE: Single AP portable view of the chest. COMPARISON: 06/03/2020 FINDINGS: Status post median sternotomy. No change in the alveolar opacities in both lungs consistent with bilateral pneumonia. No change in the right apical pleural thickening. There is moderate cardiac enlargement. Normal mediastinum and megan. Normal visualized pulmonary arteries. Normal visualized aortic arch and descending thoracic aorta. Normal visualized thoracic spine. Normal visualized ribs, clavicles, and shoulders. There is no demonstrated abnormality of the visualized soft tissue structures of the upper abdomen. RAD/Chest 1 View (Portable) IMPRESSION: No change in bilateral pneumonia. Electronically Signed: Diego Ferraro MD at 13:30 EST Tel , Service support ,
--- NOTE | 2020-06-05 10:41 | NM_ITS ---
Technical sulci and expanded INDICATION: Colon cancer, anemia, no rectal bleeding. TECHNIQUE: After the ministration of 24.8 mCi of technetium 99m tagged red blood cells intravenously, multiple scintigraphic images of the abdomen were obtained. FINDINGS: Normal perfusion of the abdominal aorta and iliac arteries. Normal enhancement of the liver and spleen. Normal excretion of ray from school by the kidneys into the bladder. No focus of abnormally increased uptake within the abdomen and pelvis suggest active gastrointestinal hemorrhage. IMPRESSION: No scintigraphic evidence of active gastrointestinal hemorrhage. Electronically Signed: Diego Ferraro MD at 13:19 EST Tel , Service support , NM/GI Bleed Scan
--- NOTE | 2020-06-05 12:41 | PCM.PROGNOTE ---
Patient Problems: Active and Suspected Problems (Last Reviewed 05/12/20 @ 07:[address] Eligio Garcia MD) Atrial fibrillation with rapid ventricular response (Acute) Acute on chronic anemia (Acute) Weakness (Acute) Respiratory failure (Acute) Acute exacerbation of CHF (congestive heart failure) (Acute) CHF (congestive heart failure) (Acute) intermediate current use of anticoagulant (Acute) ST segment depression (Acute) Dyspnea on exertion (Acute) Abnormal stress test (Acute) Pre-operative cardiovascular examination (Acute) Personal history of colonic polyps (Acute) Anemia (Acute) Subjective: Patient seen and examined. Hemoglobin 6.9 this morning, 2 units PRBC ordered. Patient denies chest pain, shortness of breath, lightheadedness. Continues to require significant supplemental oxygen, denies shortness of breath. Denies cough, fever, chills. - Physical Exam Vitals/I&O's: Vital Signs Temp Pulse Resp BP Pulse Ox 98.2 F 110 H 20 H 100/57 L 94 06/05/20 11:15 06/05/20 11:15 06/05/20 11:15 06/05/20 11:15 06/05/20 11:15 Oxygen Flow Rate (L/min) 6 Oxygen Delivery Method Nasal Cannula Weight: 221 lb 9.033 oz Body Mass Index (BMI) 30.1 Intake and Output for Last 24 Hours 06/03/20 06/04/20 06/05/20 23:59 23:59 23:59 Intake Total 1825 / 1945 1325 / 1325 425 / 425 Output Total 1975 / 3125 4175 / 4175 500 / 500 Balance -150 / -1180 -2850 / -2850 -75 / -75 General: Alert, Oriented x3, Cooperative HEENT: Atraumatic, PERRLA, EOMI, Normocephalic Neck: Supple, No JVD, Negative Carotid Bruits Lungs: Diminished, - - Scattered crackles Cardiovascular: Tachycardic, - - Atrial fibrillation Abdomen: Bowel Sounds Present, Soft, Non Tender, Non-Distended Extremities: No clubbing, No cyanosis, Edema - Nonpitting bilateral lower extremities Skin: No rashes, No breakdown Musculoskeletal: No Tenderness to Palpation of Joints or Extremities Neurological: Cranial nerves II-XII grossly intact, Neuro grossly intact Psych/Mental Status: Normal Affect, Appropriate Microbiology Past 72 Hours 06/03/20 13:15 Urine Catheter - Briones Legionella Antigen - Final 06/03/20 13:15 Urine Catheter - Briones Streptococcus pneumoniae Antigen (M - Final 06/03/20 05:35 Stool Stool Occult Blood (ELLIE) - Final 06/03/20 04:45 Mucosa - Nose SARS-CoV-2 Antigen (Rapid) - Final Laboratory Results 06/03/20 05:45: Crossmatch See Detail 06/05/20 05:35: WBC 8.5, RBC 2.44 L, Hgb 6.9 L, Hct 23.0 L, MCV 94.3 H, MCH 28.3, MCHC 30.0 L, RDW Std Deviation 59.1 H, RDW Coeff of Marcelino 17.2 H, Plt Count 207, MPV 10.9 06/05/20 05:35: PT 45.3 H, INR 4.8 H* 06/05/20 05:35: Sodium 135 L, Potassium 3.6, Chloride 101, Carbon Dioxide 28.0, Anion Gap 6, BUN 35 H, Creatinine 1.35 H, Estim Creat Clear Calc 44.71, Est GFR (MDRD) Af Amer 65, Est GFR (MDRD) Non-Af 53 L, BUN/Creatinine Ratio 25.9 H, Glucose 91, Calcium 8.9 Current Medications Acetaminophen (Acetaminophen 325 Mg Tablet) 650 mg PO Q6H PRN PRN PRN Reason: Pain Score 1-10/Temp > 100.7 F Al Hydroxide/Mg Hydroxide (Mag Hydrox/Al Hydrox/Simeth 30 Ml Udc) 30 ml PO Q6H PRN PRN PRN Reason: Gastric Burning Albuterol Sulfate (Albuterol 2.5 Mg/3 Ml Vial.Neb.) 2.5 mg INHALATION Q2H PRN PRN PRN Reason: Dyspnea, wheezing Albuterol/Ipratropium (Ipratropium/Albuterol Sulfate 3 Ml Ampul.Neb) 3 ml INHALATION Q4HWA.RT [facility] Last Admin: 06/04/20 19:31 Dose: 3 ml Documented by: Amiodarone HCl (Amiodarone 200 Mg Tablet) 100 mg PO DAILY [facility] Last Admin: 06/05/20 09:17 Dose: 100 mg Documented by: Atorvastatin Calcium (Atorvastatin Calcium 80 Mg Tablet) 80 mg PO QHS [facility] Last Admin: 06/04/20 22:12 Dose: 80 mg Documented by: Famotidine (Famotidine 20 Mg Tablet) 20 mg PO DAILY [facility] Last Admin: 06/05/20 09:15 Dose: 20 mg Documented by: Ferrous Sulfate (Ferrous Sulfate 325 Mg Tablet) 325 mg PO TIDCM [facility] Last Admin: 06/05/20 09:15 Dose: 325 mg Documented by: Furosemide (Furosemide 40 Mg/4 Ml Vial) 40 mg IV BID@1000,1800 [facility] Last Admin: 06/05/20 09:15 Dose: 40 mg Documented by: Guaifenesin (Guaifenesin 10 Ml Udc (200mg/10ml)) 20 ml PO Q4H PRN PRN PRN Reason: COUGH Hydralazine HCl (Hydralazine 20 Mg/Ml Vial) 10 mg IV Q4H PRN PRN PRN Reason: SBP > 160 Sodium Chloride () 500 mls @ 15 mls/hr IV PRN PRN PRN Reason: Blood Transfusion Sodium Chloride () 250 mls @ 15 mls/hr IV .[id number] PRN PRN Reason: Saline Flush Sodium Chloride () 250 mls @ 15 mls/hr IV .[id number] PRN PRN Reason: Additional IVPB Infusion Ceftriaxone Sodium 2 gm/ (Sodium Chloride) 50 mls @ 100 mls/hr IV Q24 [facility] Stop: 06/11/20 10:01 Last Infusion: 06/05/20 09:35 Dose: Infused Documented by: Azithromycin 500 mg/ Dextrose 255 mls @ 250 mls/hr IV Q24 [facility] Stop: 06/09/20 10:01 Last Infusion: 06/05/20 11:05 Dose: Infused Documented by: Levothyroxine Sodium (Levothyroxine 125 Mcg Tablet) 125 mcg PO DAILY@0600 [facility] Last Admin: 06/05/20 05:28 Dose: 125 mcg Documented by: Magnesium Hydroxide (Magnesium Hydroxide 30 Ml Udc) 30 ml PO DAILY PRN PRN PRN Reason: Constipation Melatonin (Melatonin 3 Mg Tablet) 3 mg PO QHS PRN PRN PRN Reason: INSOMNIA Metoprolol Succinate (Metoprolol(Xl)Succ 50 Mg Tablet) 50 mg PO DAILY [facility] Last Admin: 06/05/20 09:17 Dose: 50 mg Documented by: Morphine Sulfate (Morphine 2 Mg/Ml Syringe) 2 mg IV Q3H PRN PRN PRN Reason: Pain Score 6-10 Nitroglycerin (Nitroglycerin (Inpatient Use) 0.4 Mg Tab.Subl) 0.4 mg SUBLINGUAL Q5M PRN PRN Reason: CARDIAC/CHEST PAIN Ondansetron HCl (Ondansetron 4 Mg/2 Ml Vial) 4 mg IV Q8H PRN PRN PRN Reason: NAUSEA/VOMITING Oxycodone HCl (Oxycodone 5 Mg Tablet) 5 mg PO Q4H PRN PRN PRN Reason: Pain Score 4-5 Prochlorperazine Edisylate (Prochlorperazine 10 Mg/2 Ml Vial) 5 mg IV Q4H PRN PRN PRN Reason: Breakthrough Nausea/Vomiting Psyllium Hydrophilic Mucilloid (Psyllium 1 Packet) 1 packet PO DAILY PRN PRN PRN Reason: Constipation Senna/Docusate Sodium (Senna/Docusate Sodium 1 Tablet) 2 tablet PO BID PRN PRN PRN Reason: Constipation Sodium Chloride (0.9% Saline Lock 10 Ml Syringe) 10 - 40 ml IV UD PRN PRN Reason: SALINE FLUSH Last Admin: 06/05/20 09:20 Dose: 10 ml Documented by: Tamsulosin HCl (Tamsulosin Hcl 0.4 Mg Capsule) 0.4 mg PO QHS [facility] Last Admin: 06/04/20 22:12 Dose: 0.4 mg Documented by: Throat Lozenges (Benzocaine/Menthol 1 Lozenge) 1 lozenge MUCOUS MEM Q2H PRN PRN PRN Reason: SORE THROAT Medical Necessity - Tobacco Use Smoking Status: Former smoker Tobacco Use: Non-smoker Assessment/Plan All Active Problems (Last Reviewed 05/12/20 @ 07:[address] 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 Acute on chronic anemia, supratherapeutic INR-status post 4 units PRBC. Hemoglobin 6.9 this morning. Patient states he has had prior endoscopies for ongoing anemia with no evidence of GI bleeding. Coumadin on hold. Continue iron supplementation. Stool for occult blood negative. Bleeding scan ordered for further evaluation. 2. Paroxysmal atrial fibrillation with RVR-rate now controlled. Continue amiodarone, metoprolol. 3. Acute hypoxic respiratory insufficiency secondary to acute diastolic CHF and possible left lower lobe pneumonia-BNP 217. Chest x-ray with congestion, possible left lower lobe infiltrate. Echo February 2020 demonstrated an EF of 60%, no evidence of diastolic dysfunction. Mild aortic stenosis. Continue IV Lasix. Strict I&O. Daily weight. Continue IV azithromycin and IV Rocephin. Leukocytosis and low-grade fever resolved. Continue supplement oxygen to maintain O2 sat above 90%. Covid antigen on admission negative. Given patient continues to require significant supplemental oxygen with little improvement with current treatment, will repeat Covid PCR. Consult pulmonary medicine. 4. Urinary retention/BPH- Planned for TURP with Dr. Garcia 06/09/2020. Briones placed. Patient previously straight cathing at home. Continue Flomax. 5. Elevated bilirubin, jaundice appearance-abdominal ultrasound shows cholelithiasis. Negative Madison sign. Bilirubin trended down. Asymptomatic. Trend CMP. 6. CAD with history of previous interventions-aspirin on hold. Continue statin, beta-mack. 7. Chronic kidney disease stage III-at baseline, trend BMP. 8. Hypertension-stable, continue current regimen. 9. Hyperlipidemia-continue statin. 10. Chronic COPD-as needed albuterol aerosol. 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 12. History of colon cancer status post colectomy-in remission. 13. Hypothyroidism-TSH 5.8. Free T4 1.5. Continue current Synthroid regimen. DVT prophylaxis-Coumadin on hold, supratherapeutic INR This patient was seen by JOSÉ MANUEL Stephens under the supervision of Dr. Blair.
[2020-06-05] MEDS: Ipratropium/Albuterol Sulfate 3 ML AMPUL.NEB INHALATION ×2 (15:12→19:28)
--- NOTE | 2020-06-05 16:24 | PCM.CONS.PUL ---
Problem List (1) Urinary retention Status: Chronic (2) Atrial fibrillation with rapid ventricular response Status: Acute (3) Acute on chronic anemia Status: Acute (4) Acute exacerbation of CHF (congestive heart failure) Status: Acute Qualifiers: Heart failure type: diastolic Qualified Code(s): I50.33 - Acute on chronic diastolic (congestive) heart failure (5) Paroxysmal atrial fibrillation Status: Chronic (6) Status post mitral valve repair Status: Chronic Comment: Mitral Valve repair with Moreno band #29 (7) History of coronary artery bypass graft x 3 Status: Chronic Comment: NEFF to LAD, SVG to Lateral CX, and SVG to PDA 12/25/[address] Paulino Flores, [facility] (8) retirement current use of anticoagulant Status: Acute (9) Aortic stenosis Status: Chronic Qualifiers: Cardiac valve disease etiology: etiology unspecified Qualified Code(s): I35.0 - Nonrheumatic aortic (valve) stenosis (10) Hypertension Status: Chronic Qualifiers: Hypertension type: essential hypertension Qualified Code(s): I10 - Essential (primary) hypertension (11) Hyperlipidemia Status: Chronic Qualifiers: Hyperlipidemia type: unspecified Qualified Code(s): E78.5 - Hyperlipidemia, unspecified (12) Personal history of colonic polyps Status: Acute (13) Prostatic hypertrophy Status: Chronic (14) COPD (chronic obstructive pulmonary disease) Status: Chronic Qualifiers: COPD type: unspecified COPD Qualified Code(s): J44.9 - Chronic obstructive pulmonary disease, unspecified (15) Colon cancer Status: Chronic Qualifiers: Colon location: unspecified part of colon Qualified Code(s): C18.9 - Malignant neoplasm of colon, unspecified Reason for Consult Date of Consultation: 06/05/20 Reason for Consultation: Hypoxia History of Present Illness: The patient is an 84 year old M with past medical history listed below, who presented to [facility] on 06/03/2020 secondary to fall at home. Patient reportedly tried to get up from the bathroom and fell to the ground, but did not injure himself. Patient was reportedly on the floor for 30 minutes before EMS arrived and evaluated him.. Patient was found to be in A. fib with RVR, but denied any shortness of breath or chest pain. Patient did have a previous history of CHF, CAD and A. fib. Patient was on Coumadin, amiodarone and metoprolol baseline. Patient reportedly had a cardioversion approximately a year ago. Patient not reported any concomitant fever, chills, nausea, vomiting or diarrhea. No Covid 19 exposures have been reported. On arrival to the ER, patient was hypoxic at 81%, tachypneic at 33 and tachycardic at 127 bpm. EKG was consistent with A. fib and patient was given a dose of Cardizem. Chest x-ray showed significant infiltrate on the left chest. Laboratory work-up did show a significant anemia and patient reportedly has had multiple transfusions in the past. Patient is on iron supplementation at baseline. Patient reportedly has a history of chronic kidney disease and had a supratherapeutic INR. Troponin and COVID-19 testing were negative and patient was admitted to the floor. Since being admitted to the floor, patient has required between 4 and 6 L of nasal cannula oxygen to maintain saturations. Patient is also had progressive infiltrates noted on the left chest. Given failure to improve, pulmonary consult was obtained. Patient also had a COVID-19 PCR sent today that came back negative. Patient overall feels that he is subjectively improved compared to previous. Patient had a bleeding scan that was negative, but states that that led to significant body aches being in that scanner for an hour. Patient is not reporting any bloody bowel movements, hematemesis or melena. 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 Patient is a relatively poor historian, but appears to have received chemotherapy twice. Patient also has been doing self-catheterization for the past year and a half and was supposedly to have a TURP procedure later this week. Patient does not use supplemental oxygen at baseline. Patient reports he has been compliant with his Lasix, Coumadin and other medications. Patient does have a history of a pleural effusion status post thoracentesis on the right, but is unaware of the test results. Review of systems otherwise negative from a constitutional, HEENT, respiratory, cardiovascular, GI, genitourinary, musculoskeletal, skin, neurologic, psychiatric and hematologic system unless stated above. Past Medical History Past Medical History (Chronic Problems): Chronic Problems (Last Reviewed 05/12/20 @ 07:[address] Eligio Garcia MD) Urinary retention (Chronic) Chronic renal insufficiency (Chronic) On amiodarone therapy (Chronic) Hypothyroidism (acquired) (Chronic) Paroxysmal atrial fibrillation (Chronic) History of cardioversion (Chronic 05/31/19) Successful on Amiodarone 05/31/2019 @ [facility] per [facility] Atherosclerosis of coronary artery of [place] heart without angina pectoris (Chronic) NEFF to LAD, SVG to Lateral CX, and SVG to PDA 12/25/[address] Paulino Flores, [facility] Status post mitral valve repair (Chronic 12/25/18) Mitral Valve repair with Moreno band #29 History of coronary artery bypass graft x 3 (Chronic 12/25/18) NEFF to LAD, SVG to Lateral CX, and SVG to PDA 12/25/[address] Paulino Flores, [facility] History of right and left heart catheterization (Chronic 12/02/18) Triple vessel CAD of the LM, LAD, OMs, RCA. Normal LV size, wall motion,and systolic function Perserved Left Ventricular systolic function with normal EDP LVEF: by LV gram 65 % The patient has normal pulmonary hemodynamics. 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 Carotid artery disease (Chronic) ON PLAVIX FOR THIS FROM DR. GIRMA FISHMAN: occluded proximal right carotid and right vertebral with collaterals Aortic stenosis (Chronic) New onset atrial fibrillation (Chronic) Hypertension (Chronic) Hyperlipidemia (Chronic) Prostatic hypertrophy (Chronic) Acid reflux (Chronic) COPD (chronic obstructive pulmonary disease) (Chronic) Colon cancer (Chronic) Medical History: Medical History (Last Reviewed 05/12/20 @ 07:[address] Eligio Garcia MD) On amiodarone therapy (Chronic) Z79.899 Hypothyroidism (acquired) (Chronic) E03.9 Paroxysmal atrial fibrillation (Chronic) I48.0 Atherosclerosis of coronary artery of [place] heart without angina pectoris (Chronic) I25.10 NEFF to LAD, SVG to Lateral CX, and SVG to PDA 12/25/[address] Paulino Flores, [facility] Carotid artery disease (Chronic) I77.9 ON PLAVIX FOR THIS FROM DR. GIRMA FISHMAN: occluded proximal right carotid and right vertebral with collaterals Aortic stenosis (Chronic) I35.0 New onset atrial fibrillation (Chronic) I48.91 Pre-operative cardiovascular examination (Acute) Z01.810 Hypertension (Chronic) I10 Hyperlipidemia (Chronic) E78.5 Anemia (Acute) D64.9 Prostatic hypertrophy (Chronic) N40.0 Acid reflux (Chronic) K21.9 COPD (chronic obstructive pulmonary disease) (Chronic) J44.9 Colon cancer (Chronic) C18.9 Abnormality of gait R26.9 Allergic rhinitis J30.9 Obesity E66.9 Blood clots in stool (Resolved) K92.1 Allergies adhesive tape Allergy (Intermediate, Verified 06/03/20 04:01) dermatitis Home Medications: Ambulatory Orders Medication Instructions Recorded atorvastatin 80 mg tablet 80 mg PO QDAY 07/14/17 coenzyme Q10 100 mg capsule 100 mg PO QDAY 07/14/17 Tamsulosin HCl [Flomax] 0.4 mg PO QHS 11/04/18 aspirin 81 mg tablet,delayed 81 mg PO DAILY 11/20/18 release acetaminophen 325 mg capsule 650 mg PO Q6H PRN cap 01/04/19 furosemide 40 mg tablet 40 mg PO DAILY #30 tab 01/19/20 levothyroxine 125 mcg tablet 125 mcg PO DAILY 01/19/20 omega-3s 300 [id number]-[id number] 1 cap PO DAILY ea 01/19/20 [id number] oil 1,000 mg capsule ascorbic acid (vitamin C) 500 mg 500 mg PO BID 02/15/20 tablet ferrous sulfate 325 mg (65 mg 325 mg PO BID 02/15/20 iron) tablet metoprolol succinate 50 mg 50 mg PO DAILY #90 tab 03/10/20 tablet,extended release 24 hr Amiodarone HCl 100 mg PO DAILY 04/24/20 Vitamin B Complex [B Complex] 1 ea PO DAILY 05/04/20 warfarin 2 mg tablet 2 mg PO WETH 05/15/20 warfarin 2.5 mg tablet 5 mg PO SUMOTUFRSA 05/15/20 Surgical History: Surgical History (Last Reviewed 04/17/20 @ 13:[address] Linsey Townsend MD) History of cardioversion (Chronic) Onset Date: 05/31/19 Z98.890 Successful on Amiodarone 05/31/2019 @ [facility] per [facility]N Status post mitral valve repair (Chronic) Onset Date: 12/25/18 Z98.890 Mitral Valve repair with Moreno band #29 History of coronary artery bypass graft x 3 (Chronic) Onset Date: 07/26/19 Z95.1 NEFF to LAD, SVG to Lateral CX, and SVG to PDA 12/25/[address] Paulino Flores, [facility] History of right and left heart catheterization (Chronic) Onset Date: 12/02/18 Z98.890 Triple vessel CAD of the LM, LAD, OMs, RCA. Normal LV size, wall motion,and systolic function Perserved Left Ventricular systolic function with normal EDP LVEF: by LV gram 65 % The patient has normal pulmonary hemodynamics. 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 History of colectomy Z98.890, Z90.49 for colon cancer History of colonoscopy Onset Date: 09/30/17 Z98.890 Surgical History: colectomy, coronary bypass surgery - mitral valve repair, - - Prior cardioversion, mitral valve repair with Gaudencio band, CABG x3, partial colectomy secondary to colon cancer history Psychiatric History: No pertinent psych hx Lives: Spouse/ Significant Other Smoking Status: Former smoker Tobacco Use: Non-smoker Alcohol: None Drugs: None - *Family History Maternal Family History: Family History (Last Reviewed 04/17/20 @ 13:[address] Linsey Townsend MD) Father Pneumonia Mother CAD (coronary artery disease) Arthritis Sister Rheumatoid arthritis Oral cancer Sister Arthritis Sister No problems noted. Sister No problems noted. History Items: Heart Disease, - - Concurrent severe osteoarthritic history. Paternal Family History: Family History (Last Reviewed 04/17/20 @ 13:[address] Linsey Townsend MD) Father Pneumonia Mother CAD (coronary artery disease) Arthritis Sister Rheumatoid arthritis Oral cancer Sister Arthritis Sister No problems noted. Sister No problems noted. History Items: Hypertension, - - Father passed secondary complications of pneumonia. Review of Systems Comment: See HPI Patient Problems: Active and Suspected Problems (Last Reviewed 05/12/20 @ 07:[address] Eligio Garcia MD) Atrial fibrillation with rapid ventricular response (Acute) Acute on chronic anemia (Acute) Weakness (Acute) Respiratory failure (Acute) Acute exacerbation of CHF (congestive heart failure) (Acute) CHF (congestive heart failure) (Acute) retirement current use of anticoagulant (Acute) ST segment depression (Acute) Dyspnea on exertion (Acute) Abnormal stress test (Acute) Pre-operative cardiovascular examination (Acute) Personal history of colonic polyps (Acute) Anemia (Acute) Objective: All imaging was personally reviewed. Chest x-ray shows a predominantly left-sided infiltrate with highly tortuous trachea and cardiomegaly. CT scan from 2013 and chest x-ray from 2019 were also reviewed. Chest x-ray from 2019 showed some fibrotic changes at the right base. CT from 2013 did not show significant interstitial infiltrates. Patient did have an echocardiogram completed in February 2020 showing an EF of 60% with an elevated pulmonary systolic pressure of 30 mmHg and severely enlarged left atrium and mild aortic stenosis. - Physical Exam Vitals/I&O's: Vital Signs Temp Pulse Resp BP Pulse Ox 36.6 C 96 20 H 104/53 L 96 06/05/20 16:05 06/05/20 16:05 06/05/20 16:05 06/05/20 16:05 06/05/20 16:05 Oxygen Flow Rate (L/min) 6 Oxygen Delivery Method Nasal Cannula Weight: 100.5 kg Body Mass Index (BMI) 30.1 Intake and Output for Last 24 Hours 06/03/20 06/04/20 06/05/20 23:59 23:59 23:59 Intake Total 1825 / 1945 1325 / 1325 665 / 665 Output Total 1975 / 3125 4175 / 4175 1250 / 1250 Balance -150 / -1180 -2850 / -2850 -585 / -585 General: Alert, Oriented x3, Cooperative, No apparent distress, - - No conversational dyspnea noted HEENT: Atraumatic, PERRLA, EOMI, Normocephalic, - - No scleral icterus or injection noted. Glasses in place. Oral: Moist Mucosa, No Gingival or Mucosal Lesions/ Ulcerations Neck: Supple, No Nodes, Trachea Midline, JVD, Right Lungs: No rhonchi, No wheeze, Diminished, Rales - Left chest Cardiovascular: Normal S1, Normal S2, Irregular Rate, Murmur - Grade 3 out of 6 systolic ejection murmur at the right sternal border, No rub noted, No Gallop Abdomen: Bowel Sounds Present, Soft, Non Tender, Non-Distended Extremities: No clubbing, No cyanosis, Edema - 2+ lower extremity edema at the ankle Skin: No rashes, No breakdown Musculoskeletal: No Tenderness to Palpation of Joints or Extremities Lymphatic: No Cervical, Supraclavicular, or Inguinal Adenopathy Neurological: Cranial nerves II-XII grossly intact, Neuro grossly intact, Motor Exam 5/5 strength throughout Psych/Mental Status: Alert and oriented to time, place, person, mood and affect Microbiology Past 72 Hours 06/03/20 13:15 Urine Catheter - Briones Legionella Antigen - Final 06/03/20 13:15 Urine Catheter - Briones Streptococcus pneumoniae Antigen (M - Final 06/03/20 05:35 Stool Stool Occult Blood (ELLIE) - Final 06/03/20 04:45 Mucosa - Nose SARS-CoV-2 Antigen (Rapid) - Final Laboratory Results 06/03/20 05:45: Crossmatch See Detail 06/03/20 05:45: Crossmatch See Detail 06/05/20 05:35: WBC 8.5, RBC 2.44 L, Hgb 6.9 L, Hct 23.0 L, MCV 94.3 H, MCH 28.3, MCHC 30.0 L, RDW Std Deviation 59.1 H, RDW Coeff of Marcelino 17.2 H, Plt Count 207, MPV 10.9 06/05/20 05:35: PT 45.3 H, INR 4.8 H* 06/05/20 05:35: Sodium 135 L, Potassium 3.6, Chloride 101, Carbon Dioxide 28.0, Anion Gap 6, BUN 35 H, Creatinine 1.35 H, Estim Creat Clear Calc 44.71, Est GFR (MDRD) Af Amer 65, Est GFR (MDRD) Non-Af 53 L, BUN/Creatinine Ratio 25.9 H, Glucose 91, Calcium 8.9 06/05/20 13:00: COVID-19 (LAINEY) Not Detected Current Medications Acetaminophen (Acetaminophen 325 Mg Tablet) 650 mg PO Q6H PRN PRN PRN Reason: Pain Score 1-10/Temp > 100.7 F Al Hydroxide/Mg Hydroxide (Mag Hydrox/Al Hydrox/Simeth 30 Ml Udc) 30 ml PO Q6H PRN PRN PRN Reason: Gastric Burning Albuterol Sulfate (Albuterol 2.5 Mg/3 Ml Vial.Neb.) 2.5 mg INHALATION Q2H PRN PRN PRN Reason: Dyspnea, wheezing Albuterol/Ipratropium (Ipratropium/Albuterol Sulfate 3 Ml Ampul.Neb) 3 ml INHALATION Q4HWA.RT [facility] Last Admin: 06/05/20 15:12 Dose: 3 ml Documented by: Amiodarone HCl (Amiodarone 200 Mg Tablet) 100 mg PO DAILY [facility] Last Admin: 06/05/20 09:17 Dose: 100 mg Documented by: Atorvastatin Calcium (Atorvastatin Calcium 80 Mg Tablet) 80 mg PO QHS [facility] Last Admin: 06/04/20 22:12 Dose: 80 mg Documented by: Famotidine (Famotidine 20 Mg Tablet) 20 mg PO DAILY [facility] Last Admin: 06/05/20 09:15 Dose: 20 mg Documented by: Ferrous Sulfate (Ferrous Sulfate 325 Mg Tablet) 325 mg PO TIDCM [facility] Last Admin: 06/05/20 13:03 Dose: Not Given Documented by: Furosemide (Furosemide 40 Mg/4 Ml Vial) 40 mg IV BID@1000,1800 [facility] Last Admin: 06/05/20 09:15 Dose: 40 mg Documented by: Guaifenesin (Guaifenesin 10 Ml Udc (200mg/10ml)) 20 ml PO Q4H PRN PRN PRN Reason: COUGH Hydralazine HCl (Hydralazine 20 Mg/Ml Vial) 10 mg IV Q4H PRN PRN PRN Reason: SBP > 160 Sodium Chloride () 500 mls @ 15 mls/hr IV PRN PRN PRN Reason: Blood Transfusion Sodium Chloride () 250 mls @ 15 mls/hr IV .[id number] PRN PRN Reason: Saline Flush Sodium Chloride () 250 mls @ 15 mls/hr IV .[id number] PRN PRN Reason: Additional IVPB Infusion Ceftriaxone Sodium 2 gm/ (Sodium Chloride) 50 mls @ 100 mls/hr IV Q24 [facility] Stop: 06/11/20 10:01 Last Infusion: 06/05/20 09:35 Dose: Infused Documented by: Azithromycin 500 mg/ Dextrose 255 mls @ 250 mls/hr IV Q24 [facility] Stop: 06/09/20 10:01 Last Infusion: 06/05/20 11:05 Dose: Infused Documented by: Levothyroxine Sodium (Levothyroxine 125 Mcg Tablet) 125 mcg PO DAILY@0600 [facility] Last Admin: 06/05/20 05:28 Dose: 125 mcg Documented by: Magnesium Hydroxide (Magnesium Hydroxide 30 Ml Udc) 30 ml PO DAILY PRN PRN PRN Reason: Constipation Melatonin (Melatonin 3 Mg Tablet) 3 mg PO QHS PRN PRN PRN Reason: INSOMNIA Metoprolol Succinate (Metoprolol(Xl)Succ 50 Mg Tablet) 50 mg PO DAILY [facility] Last Admin: 06/05/20 09:17 Dose: 50 mg Documented by: Morphine Sulfate (Morphine 2 Mg/Ml Syringe) 2 mg IV Q3H PRN PRN PRN Reason: Pain Score 6-10 Nitroglycerin (Nitroglycerin (Inpatient Use) 0.4 Mg Tab.Subl) 0.4 mg SUBLINGUAL Q5M PRN PRN Reason: CARDIAC/CHEST PAIN Ondansetron HCl (Ondansetron 4 Mg/2 Ml Vial) 4 mg IV Q8H PRN PRN PRN Reason: NAUSEA/VOMITING Oxycodone HCl (Oxycodone 5 Mg Tablet) 5 mg PO Q4H PRN PRN PRN Reason: Pain Score 4-5 Prochlorperazine Edisylate (Prochlorperazine 10 Mg/2 Ml Vial) 5 mg IV Q4H PRN PRN PRN Reason: Breakthrough Nausea/Vomiting Psyllium Hydrophilic Mucilloid (Psyllium 1 Packet) 1 packet PO DAILY PRN PRN PRN Reason: Constipation Senna/Docusate Sodium (Senna/Docusate Sodium 1 Tablet) 2 tablet PO BID PRN PRN PRN Reason: Constipation Sodium Chloride (0.9% Saline Lock 10 Ml Syringe) 10 - 40 ml IV UD PRN PRN Reason: SALINE FLUSH Last Admin: 06/05/20 09:20 Dose: 10 ml Documented by: Tamsulosin HCl (Tamsulosin Hcl 0.4 Mg Capsule) 0.4 mg PO QHS [facility] Last Admin: 06/04/20 22:12 Dose: 0.4 mg Documented by: Throat Lozenges (Benzocaine/Menthol 1 Lozenge) 1 lozenge MUCOUS MEM Q2H PRN PRN PRN Reason: SORE THROAT Clinical Impression(s) from Imaging Studies Chest X-Ray 06/05/20 10:39 IMPRESSION: No change in bilateral pneumonia. Electronically Signed: Diego Ferraro MD at 13:30 EST Tel , Service support , GI Bleed Scan Nuclear Medicine 06/05/20 10:41 Assessment/Plan All Active Problems (Last Reviewed 05/12/20 @ 07:[address] 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 Consider monitoring off antibiotics 2. Agree with aggressive diuresis 3. Aggressive rate control for A. fib 4. Obtain CT of the chest without contrast 5. Wean oxygen as tolerated 6. Consider active reversal of Coumadin given possible GI bleed IMPRESSIONS: 1. Acute hypoxic respiratory insufficiency Unclear etiology. Patient does have a history of diastolic CHF, so this would be a possibility. Patient is also had decrease in H&H despite negative GI bleeding scan and lack of clinical indicators. Patient has been on antibiotics for several days with no improvement. Patient did have an initial leukocytosis, but no fevers have been noted. Diffuse alveolar hemorrhage would be a consideration. Patient does have a very tortuous aorta. Likely okay to continue with diuresis, but monitoring off of antibiotics is likely reasonable. Aggressive rate control would also be helpful. Recommend obtaining CT scan of the chest without contrast. Amiodarone toxicity, pulmonary fibrosis, lymphangitic spread of malignancy, congestive heart failure and pleural disease would all be considerations. Continue Briones given active diuresis. Elevated liver enzymes may be secondary to hepatic congestion. Patient does have a history of smoking with reported COPD, but findings on chest x-ray are not suggestive of significant hyperinflation. 2. Paroxysmal A. fib/supratherapeutic INR/anemia Patient with significant drop in hemoglobin with a supratherapeutic INR. Consider acute reversal of anticoagulation with FFP. Defer to primary service. Patient would benefit from rate control given history of diastolic dysfunction. 3. Advanced age/CKD stage III/CAD/hypertension/hyperlipidemia/history of VTE/history of colon cancer/hypothyroidism/BPH Complicates care, management, recovery and prognosis. Would prefer a CTA of the chest for evaluation of mediastinal structures given significant tortuous trachea, but given renal function this is likely not a good initial test. Patient reports he has a history of lymphoma, but colon cancer is in the medical record. Patient could have decreased venous return from the left side leading to current imaging study. Patient likely not hemodynamically appropriate for optimization of TURP later this week. Conservative therapy with Briones catheter likely indicated until respiratory status can be stabilized. Inpatient E&M: 18965 Init Hosp L3
--- NOTE | 2020-06-05 17:15 | CT_ITS ---
STUDY: CT CHEST WITH T WITHOUT CONTRAST REASON FOR EXAM: Male, 84 years old. RESPIRATORY FAILURE RADIATION DOSAGE (If Supplied By Facility): CTDIvol = ( 12.16 ) mGy, DLP = ( 479.31 ) mGycm TECHNIQUE: Transaxial imaging was performed pre-and post contrast administration of IV 100mL Isovue-370. Multiplanar coronal and sagittal images were reformatted. Individualized dose optimization techniques were used for this CT. COMPARISON: Previous plain films FINDINGS: Lung windows show mildly hyperexpanded lungs with chronic interstitial changes and nonspecific pleural thickening. There is superimposed airspace opacifications in the left upper and lower lobes and fibrotic scarring with calcifications in the inferior half of the right hemithorax. There is no demonstrated pleural abnormality. Sternal cerclage wires and vascular clips are present from a prior sternotomy and coronary artery bypass graft procedure (CABG). Scattered subcentimeter axillary mediastinal lymph nodes.. Normal enhanced and unenhanced pulmonary arteries. Peripheral calcifications in the thoracic aorta without aneurysm. There are multi-level degenerative changes of the thoracic spine. There is no demonstrated abnormality of the visualized upper abdomen. CT/Chest W/WO Contrast IMPRESSION: Underlying emphysema with diffuse interstitial changes and nonspecific pleural thickening in both hemithoraces. There is superimposed infiltrates in the left upper and lower lobes. There is volume loss in the right hemithorax with likely chronic elevation of the right hemidiaphragm and fibrotic scarring with calcifications in the lateral lower half of the right hemithorax. No pleural or pericardial effusions Remote CABG Degenerative bony changes Electronically Signed: Ben Young MD at 19:13 EST , Service support ,
[2020-06-05] MEDS: Atorvastatin Calcium 80 MG Tablet PO (20:53)
[2020-06-05] MEDS: Tamsulosin HCl 0.4 MG Capsule PO (20:53)
[2020-06-05] MEDS: 0.9% Normal Saline 1,000 ML 100 ML IV (21:50)
[2020-06-05 23:35] LABS: Hematocrit 28.4 % (40-54)
[2020-06-06] VITALS (11 sets, daily range): BP systolic 93–110; BP diastolic 47–60; PULSE 84–128; RESP 18–20; TEMP 36.4–36.6; O2SAT 94–99
[2020-06-06] MEDS: Levothyroxine 125 MCG Tablet PO (06:38)
[2020-06-06 06:44] LABS: Hematocrit 29.3 % (40-54); Hemoglobin 8.8 g/dL (13.0-16.5); Mean Corpuscular Hgb 28.1 pg (27.0-32.0); Mean Corpuscular Volume 93.6 fL (80-94); Mean Platelet Vol. 10.6 fl (6.2-12.0); Platelet Count 212 K/mm3 (150-450); RBC Distribution Width CV 16.6 % (11.6-14.6); RBC Distribution Width SD 56.6 fl (35.1-43.9); Red Blood Count 3.13 M/mm3 (4.6-6.2); White Blood Count 7.5 K/mm3 (4.4-11.0)
[2020-06-06 06:49] LABS: Prothrombin Time (Protime)PT. 39.6 SECONDS (11.7-14.9)
[2020-06-06 06:54] LABS: International Normalized Ratio 4.1
[2020-06-06 07:04] LABS: Anion Gap 7 (5-15); BUN 27 mg/dL (7-18); BUN/Creat Ratio 23.5 RATIO (10-20); Calcium,Total 8.7 mg/dL (8.5-10.1); Chloride 101 mmol/L (98-107); Creatinine, Serum 1.15 mg/dL (0.70-1.30); EST Glomerular Filtration Rate 64 mL/min (>60); Est Glom Filt Rate - Afr Amer 78 mL/min (>60); Estimated Creatinine Clearance 52.48 ml/min; Glucose 79 mg/dL (74-106); Potassium 3.3 mmol/L (3.5-5.1); Sodium Level 137 mmol/L (136-145)
[2020-06-06] MEDS: Ipratropium/Albuterol Sulfate 3 ML AMPUL.NEB INHALATION ×4 (07:19→22:42)
[2020-06-06] MEDS: Metoprolol(XL)Succ 50 MG Tablet PO (08:38)
[2020-06-06] MEDS: Amiodarone 200 MG Tablet 100 MG PO (08:39)
[2020-06-06] MEDS: Famotidine 20 MG Tablet PO (08:39)
[2020-06-06] MEDS: Ferrous Sulfate 325 MG Tablet PO ×3 (08:39→17:22)
[2020-06-06] MEDS: Furosemide 40 MG/4 ML Vial IV ×2 (08:40→17:22)
--- NOTE | 2020-06-06 12:56 | PN_ITS ---
Patient Problems: Active and Suspected Problems (Last Reviewed 05/12/20 @ 07:[address] Eligio Garcia MD) Atrial fibrillation with rapid ventricular response (Acute) Acute on chronic anemia (Acute) Weakness (Acute) Respiratory failure (Acute) Acute exacerbation of CHF (congestive heart failure) (Acute) CHF (congestive heart failure) (Acute) longterm current use of anticoagulant (Acute) ST segment depression (Acute) Dyspnea on exertion (Acute) Abnormal stress test (Acute) Pre-operative cardiovascular examination (Acute) Personal history of colonic polyps (Acute) Anemia (Acute) Subjective: Patient seen and examined. Denies shortness of breath. Complains of feeling fatigued. Denies other symptoms or complaints. - Physical Exam Vitals/I&O's: Vital Signs Temp Pulse Resp BP Pulse Ox 97.6 F L 122 H 20 H 110/56 L 99 06/06/20 08:37 06/06/20 11:04 06/06/20 11:04 06/06/20 08:38 06/06/20 11:04 Oxygen Flow Rate (L/min) 6 Oxygen Delivery Method Nasal Cannula Weight: 210 lb 8.663 oz Body Mass Index (BMI) 30.1 Intake and Output for Last 24 Hours 06/04/20 06/05/20 06/06/20 23:59 23:59 23:59 Intake Total 1325 / 1325 1425 / 1545 1120 / 1120 Output Total 4175 / 4175 2550 / 4250 2250 / 2250 Balance -2850 / -2850 -1125 / -2705 -1130 / -1130 General: Alert, Oriented x3, Cooperative HEENT: Atraumatic, PERRLA, EOMI, Normocephalic Neck: Supple, No JVD, Negative Carotid Bruits Lungs: Diminished, - - Faint crackles on the left Cardiovascular: - - Atrial fibrillation, tachycardic Abdomen: Bowel Sounds Present, Soft, Non Tender, Non-Distended Extremities: No clubbing, No cyanosis, Capillary Refill Less than 3 Seconds, Edema - Nonpitting bilateral lower extremities Skin: No rashes, No breakdown Musculoskeletal: No Tenderness to Palpation of Joints or Extremities Neurological: Cranial nerves II-XII grossly intact, Neuro grossly intact Psych/Mental Status: Normal Affect, Appropriate Microbiology Past 72 Hours 06/03/20 13:15 Urine Catheter - Briones Legionella Antigen - Final 06/03/20 13:15 Urine Catheter - Briones Streptococcus pneumoniae Antigen (M - Final Laboratory Results 06/03/20 05:45: Crossmatch See Detail 06/03/20 05:45: Crossmatch See Detail 06/05/20 13:00: COVID-19 ([facility]) Not Detected 06/05/20 23:06: Hgb 9.0 L, Hct 28.4 L 06/06/20 05:45: WBC 7.5, RBC 3.13 L, Hgb 8.8 L, Hct 29.3 L, MCV 93.6, MCH 28.1, MCHC 30.0 L, RDW Std Deviation 56.6 H, RDW Coeff of Marcelino 16.6 H, Plt Count 212, MPV 10.6 06/06/20 05:45: PT 39.6 H, INR 4.1 H* 06/06/20 05:45: Sodium 137, Potassium 3.3 L, Chloride 101, Carbon Dioxide 29.0, Anion Gap 7, BUN 27 H, Creatinine 1.15, Estim Creat Clear Calc 52.48, Est GFR (MDRD) Af Amer 78, Est GFR (MDRD) Non-Af 64, BUN/Creatinine Ratio 23.5 H, Glucose 79, Calcium 8.7 Current Medications Acetaminophen (Acetaminophen 325 Mg Tablet) 650 mg PO Q6H PRN PRN PRN Reason: Pain Score 1-10/Temp > 100.7 F Al Hydroxide/Mg Hydroxide (Mag Hydrox/Al Hydrox/Simeth 30 Ml Udc) 30 ml PO Q6H PRN PRN PRN Reason: Gastric Burning Albuterol Sulfate (Albuterol 2.5 Mg/3 Ml Vial.Neb.) 2.5 mg INHALATION Q2H PRN PRN PRN Reason: Dyspnea, wheezing Albuterol/Ipratropium (Ipratropium/Albuterol Sulfate 3 Ml Ampul.Neb) 3 ml INHALATION Q4HWA.RT [facility] Last Admin: 06/06/20 11:04 Dose: 3 ml Documented by: Amiodarone HCl (Amiodarone 200 Mg Tablet) 100 mg PO DAILY [facility] Last Admin: 06/06/20 08:39 Dose: 100 mg Documented by: Atorvastatin Calcium (Atorvastatin Calcium 80 Mg Tablet) 80 mg PO QHS [facility] Last Admin: 06/05/20 20:53 Dose: 80 mg Documented by: Famotidine (Famotidine 20 Mg Tablet) 20 mg PO DAILY [facility] Last Admin: 06/06/20 08:39 Dose: 20 mg Documented by: Ferrous Sulfate (Ferrous Sulfate 325 Mg Tablet) 325 mg PO TIDCM [facility] Last Admin: 06/06/20 11:49 Dose: 325 mg Documented by: Furosemide (Furosemide 40 Mg/4 Ml Vial) 40 mg IV BID@1000,1800 [facility] Last Admin: 06/06/20 08:40 Dose: 40 mg Documented by: Guaifenesin (Guaifenesin 10 Ml Udc (200mg/10ml)) 20 ml PO Q4H PRN PRN PRN Reason: COUGH Hydralazine HCl (Hydralazine 20 Mg/Ml Vial) 10 mg IV Q4H PRN PRN PRN Reason: SBP > 160 Sodium Chloride () 500 mls @ 15 mls/hr IV PRN PRN PRN Reason: Blood Transfusion Sodium Chloride () 250 mls @ 15 mls/hr IV .[id number] PRN PRN Reason: Saline Flush Sodium Chloride () 250 mls @ 15 mls/hr IV .[id number] PRN PRN Reason: Additional IVPB Infusion Levothyroxine Sodium (Levothyroxine 125 Mcg Tablet) 125 mcg PO DAILY@0600 [facility] Last Admin: 06/06/20 06:38 Dose: 125 mcg Documented by: Magnesium Hydroxide (Magnesium Hydroxide 30 Ml Udc) 30 ml PO DAILY PRN PRN PRN Reason: Constipation Melatonin (Melatonin 3 Mg Tablet) 3 mg PO QHS PRN PRN PRN Reason: INSOMNIA Metoprolol Succinate (Metoprolol(Xl)Succ 50 Mg Tablet) 50 mg PO DAILY [facility] Last Admin: 06/06/20 08:38 Dose: 50 mg Documented by: Morphine Sulfate (Morphine 2 Mg/Ml Syringe) 2 mg IV Q3H PRN PRN PRN Reason: Pain Score 6-10 Nitroglycerin (Nitroglycerin (Inpatient Use) 0.4 Mg Tab.Subl) 0.4 mg SUBLINGUAL Q5M PRN PRN Reason: CARDIAC/CHEST PAIN Ondansetron HCl (Ondansetron 4 Mg/2 Ml Vial) 4 mg IV Q8H PRN PRN PRN Reason: NAUSEA/VOMITING Oxycodone HCl (Oxycodone 5 Mg Tablet) 5 mg PO Q4H PRN PRN PRN Reason: Pain Score 4-5 Prochlorperazine Edisylate (Prochlorperazine 10 Mg/2 Ml Vial) 5 mg IV Q4H PRN PRN PRN Reason: Breakthrough Nausea/Vomiting Psyllium Hydrophilic Mucilloid (Psyllium 1 Packet) 1 packet PO DAILY PRN PRN PRN Reason: Constipation Senna/Docusate Sodium (Senna/Docusate Sodium 1 Tablet) 2 tablet PO BID PRN PRN PRN Reason: Constipation Sodium Chloride (0.9% Saline Lock 10 Ml Syringe) 10 - 40 ml IV UD PRN PRN Reason: SALINE FLUSH Last Admin: 06/05/20 21:50 Dose: 10 ml Documented by: Tamsulosin HCl (Tamsulosin Hcl 0.4 Mg Capsule) 0.4 mg PO QHS [facility] Last Admin: 06/05/20 20:53 Dose: 0.4 mg Documented by: Throat Lozenges (Benzocaine/Menthol 1 Lozenge) 1 lozenge MUCOUS MEM Q2H PRN PRN PRN Reason: SORE THROAT Medical Necessity - Tobacco Use Smoking Status: Former smoker Tobacco Use: Non-smoker Assessment/Plan All Active Problems (Last Reviewed 05/12/20 @ 07:[address] Eligio Garcia MD) Atrial fibrillation with rapid ventricular response (Acute) Acute on chronic anemia (Acute) Weakness (Acute) Respiratory failure (Acute) Acute exacerbation of CHF (congestive heart failure) (Acute) CHF (congestive heart failure) (Acute) longterm current use of anticoagulant (Acute) ST segment depression (Acute) Dyspnea on exertion (Acute) Abnormal stress test (Acute) Pre-operative cardiovascular examination (Acute) Personal history of colonic polyps (Acute) Anemia (Acute) Blood clots in stool (Resolved) 1. Acute on chronic anemia, supratherapeutic INR-status post 4 units PRBC. Hemoglobin now stable, 8.8. Patient states he has had prior endoscopies for ongoing anemia with no evidence of GI bleeding. Coumadin on hold. Continue iron supplementation. Stool for occult blood negative. Bleeding scan ordered for further evaluation which was unremarkable. 2. Paroxysmal atrial fibrillation with RVR-rate now controlled. Continue amiodarone, metoprolol. 3. Acute hypoxic respiratory insufficiency secondary to acute diastolic CHF and possible left lower lobe pneumonia-BNP 217. Chest x-ray with congestion, possible left lower lobe infiltrate. Echo February 2020 demonstrated an EF of 60%, no evidence of diastolic dysfunction. Mild aortic stenosis. Continue IV Lasix. Strict I&O. Daily weight. Further antibiotics discontinued. Leukocytosis and low-grade fever resolved. Continue supplement oxygen to maintain O2 sat above 90%. Covid antigen on admission negative. Repeat Covid PCR negative. CT of chest shows underlying emphysema with diffuse interstitial changes and nonspecific pleural thickening. Left upper and left lower lobe infiltrates. Patient remains on 6 L nasal cannula. Pulmonary medicine following. 4. Urinary retention/BPH- Planned for TURP with Dr. Garcia 06/09/2020. Briones placed. Patient previously straight cathing at home. Continue Flomax. 5. Elevated bilirubin, jaundice appearance-abdominal ultrasound shows cholelithiasis. Negative Madison sign. Bilirubin trended down. Asymptomatic. Trend CMP. 6. CAD with history of previous interventions-aspirin on hold. Continue statin, beta-mack. 7. Chronic kidney disease stage III-at baseline, trend BMP. 8. Hypertension-stable, continue current regimen. 9. Hyperlipidemia-continue statin. 10. Chronic COPD-as needed albuterol aerosol. 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 12. History of colon cancer status post colectomy-in remission. 13. Hypothyroidism-TSH 5.8. Free T4 1.5. Continue current Synthroid regimen. DVT prophylaxis-Coumadin on hold, supratherapeutic INR This patient was seen by JOSÉ MANUEL Stephens under the supervision of Dr. Blair.
--- NOTE | 2020-06-06 15:40 | PCM.PN.PUL ---
Patient Problems: Active and Suspected Problems (Last Reviewed 05/12/20 @ 07:[address] Eligio Garcia MD) Atrial fibrillation with rapid ventricular response (Acute) Acute on chronic anemia (Acute) Weakness (Acute) Respiratory failure (Acute) Acute exacerbation of CHF (congestive heart failure) (Acute) CHF (congestive heart failure) (Acute) alf current use of anticoagulant (Acute) ST segment depression (Acute) Dyspnea on exertion (Acute) Abnormal stress test (Acute) Pre-operative cardiovascular examination (Acute) Personal history of colonic polyps (Acute) Anemia (Acute) Subjective: Patient did well overnight. No acute issues were reported. Patient is not having any clinical bleeding noted. Patient has been able to be weaned significantly on FiO2 and feels subjectively improved. Objective: Review of the CT scan shows emphysematous changes with a left-sided infiltrate and right basilar scarring. There is also extensive bronchiectasis noted throughout both lungs. - Physical Exam Vitals/I&O's: Vital Signs Temp Pulse Resp BP Pulse Ox 36.4 C L 97 18 101/60 99 06/06/20 14:40 06/06/20 14:40 06/06/20 14:40 06/06/20 14:40 06/06/20 14:40 Oxygen Flow Rate (L/min) 2 Oxygen Delivery Method Nasal Cannula Weight: 95.5 kg Body Mass Index (BMI) 30.1 Intake and Output for Last 24 Hours 06/04/20 06/05/20 06/06/20 23:59 23:59 23:59 Intake Total 1325 / 1325 1425 / 1545 1600 / 1600 Output Total 4175 / 4175 2550 / 4250 3075 / 3075 Balance -2850 / -2850 -1125 / -2705 -1475 / -1475 General: Alert, Oriented x3, Cooperative, No apparent distress, - - Speaking in full sentences. HEENT: Atraumatic, PERRLA, EOMI, Normocephalic, - - Glasses in place Oral: Moist Mucosa, No Gingival or Mucosal Lesions/ Ulcerations Neck: Supple, No JVD, No Nodes, Trachea Midline Lungs: No rhonchi, No wheeze, No rales, Diminished, - - Symmetric expansion Cardiovascular: Normal S1, Normal S2, Irregular Rate, No rub noted, No Gallop Abdomen: Bowel Sounds Present, Soft, Non Tender, Non-Distended, Obese Extremities: No clubbing, No cyanosis, Edema Skin: - - No change compared to yesterday Musculoskeletal: No Tenderness to Palpation of Joints or Extremities Lymphatic: No Cervical, Supraclavicular, or Inguinal Adenopathy Neurological: Cranial nerves II-XII grossly intact, Neuro grossly intact, Motor Exam 5/5 strength throughout Psych/Mental Status: Alert and oriented to time, place, person, mood and affect Microbiology Past 72 Hours 06/03/20 13:15 Urine Catheter - Briones Legionella Antigen - Final 06/03/20 13:15 Urine Catheter - Briones Streptococcus pneumoniae Antigen (M - Final Laboratory Results 06/03/20 05:45: Crossmatch See Detail 06/05/20 13:00: COVID-19 ([facility]) Not Detected 06/05/20 23:06: Hgb 9.0 L, Hct 28.4 L 06/06/20 05:45: WBC 7.5, RBC 3.13 L, Hgb 8.8 L, Hct 29.3 L, MCV 93.6, MCH 28.1, MCHC 30.0 L, RDW Std Deviation 56.6 H, RDW Coeff of Marcelino 16.6 H, Plt Count 212, MPV 10.6 06/06/20 05:45: PT 39.6 H, INR 4.1 H* 06/06/20 05:45: Sodium 137, Potassium 3.3 L, Chloride 101, Carbon Dioxide 29.0, Anion Gap 7, BUN 27 H, Creatinine 1.15, Estim Creat Clear Calc 52.48, Est GFR (MDRD) Af Amer 78, Est GFR (MDRD) Non-Af 64, BUN/Creatinine Ratio 23.5 H, Glucose 79, Calcium 8.7 Current Medications Acetaminophen (Acetaminophen 325 Mg Tablet) 650 mg PO Q6H PRN PRN PRN Reason: Pain Score 1-10/Temp > 100.7 F Al Hydroxide/Mg Hydroxide (Mag Hydrox/Al Hydrox/Simeth 30 Ml Udc) 30 ml PO Q6H PRN PRN PRN Reason: Gastric Burning Albuterol Sulfate (Albuterol 2.5 Mg/3 Ml Vial.Neb.) 2.5 mg INHALATION Q2H PRN PRN PRN Reason: Dyspnea, wheezing Albuterol/Ipratropium (Ipratropium/Albuterol Sulfate 3 Ml Ampul.Neb) 3 ml INHALATION Q4HWA.RT [facility] Last Admin: 06/06/20 14:24 Dose: 3 ml Documented by: Amiodarone HCl (Amiodarone 200 Mg Tablet) 100 mg PO DAILY [facility] Last Admin: 06/06/20 08:39 Dose: 100 mg Documented by: Atorvastatin Calcium (Atorvastatin Calcium 80 Mg Tablet) 80 mg PO QHS [facility] Last Admin: 06/05/20 20:53 Dose: 80 mg Documented by: Famotidine (Famotidine 20 Mg Tablet) 20 mg PO DAILY [facility] Last Admin: 06/06/20 08:39 Dose: 20 mg Documented by: Ferrous Sulfate (Ferrous Sulfate 325 Mg Tablet) 325 mg PO TIDCM [facility] Last Admin: 06/06/20 11:49 Dose: 325 mg Documented by: Furosemide (Furosemide 40 Mg/4 Ml Vial) 40 mg IV BID@1000,1800 [facility] Last Admin: 06/06/20 08:40 Dose: 40 mg Documented by: Guaifenesin (Guaifenesin 10 Ml Udc (200mg/10ml)) 20 ml PO Q4H PRN PRN PRN Reason: COUGH Hydralazine HCl (Hydralazine 20 Mg/Ml Vial) 10 mg IV Q4H PRN PRN PRN Reason: SBP > 160 Sodium Chloride () 500 mls @ 15 mls/hr IV PRN PRN PRN Reason: Blood Transfusion Sodium Chloride () 250 mls @ 15 mls/hr IV .[id number] PRN PRN Reason: Saline Flush Sodium Chloride () 250 mls @ 15 mls/hr IV .[id number] PRN PRN Reason: Additional IVPB Infusion Levothyroxine Sodium (Levothyroxine 125 Mcg Tablet) 125 mcg PO DAILY@0600 [facility] Last Admin: 06/06/20 06:38 Dose: 125 mcg Documented by: Magnesium Hydroxide (Magnesium Hydroxide 30 Ml Udc) 30 ml PO DAILY PRN PRN PRN Reason: Constipation Melatonin (Melatonin 3 Mg Tablet) 3 mg PO QHS PRN PRN PRN Reason: INSOMNIA Metoprolol Succinate (Metoprolol(Xl)Succ 50 Mg Tablet) 50 mg PO DAILY [facility] Last Admin: 06/06/20 08:38 Dose: 50 mg Documented by: Morphine Sulfate (Morphine 2 Mg/Ml Syringe) 2 mg IV Q3H PRN PRN PRN Reason: Pain Score 6-10 Nitroglycerin (Nitroglycerin (Inpatient Use) 0.4 Mg Tab.Subl) 0.4 mg SUBLINGUAL Q5M PRN PRN Reason: CARDIAC/CHEST PAIN Ondansetron HCl (Ondansetron 4 Mg/2 Ml Vial) 4 mg IV Q8H PRN PRN PRN Reason: NAUSEA/VOMITING Oxycodone HCl (Oxycodone 5 Mg Tablet) 5 mg PO Q4H PRN PRN PRN Reason: Pain Score 4-5 Prochlorperazine Edisylate (Prochlorperazine 10 Mg/2 Ml Vial) 5 mg IV Q4H PRN PRN PRN Reason: Breakthrough Nausea/Vomiting Psyllium Hydrophilic Mucilloid (Psyllium 1 Packet) 1 packet PO DAILY PRN PRN PRN Reason: Constipation Senna/Docusate Sodium (Senna/Docusate Sodium 1 Tablet) 2 tablet PO BID PRN PRN PRN Reason: Constipation Sodium Chloride (0.9% Saline Lock 10 Ml Syringe) 10 - 40 ml IV UD PRN PRN Reason: SALINE FLUSH Last Admin: 06/05/20 21:50 Dose: 10 ml Documented by: Tamsulosin HCl (Tamsulosin Hcl 0.4 Mg Capsule) 0.4 mg PO QHS [facility] Last Admin: 06/05/20 20:53 Dose: 0.4 mg Documented by: Throat Lozenges (Benzocaine/Menthol 1 Lozenge) 1 lozenge MUCOUS MEM Q2H PRN PRN PRN Reason: SORE THROAT Clinical Impression(s) from Imaging Studies Chest CT 06/05/20 17:15 IMPRESSION: Underlying emphysema with diffuse interstitial changes and nonspecific pleural thickening in both hemithoraces. There is superimposed infiltrates in the left upper and lower lobes. There is volume loss in the right hemithorax with likely chronic elevation of the right hemidiaphragm and fibrotic scarring with calcifications in the lateral lower half of the right hemithorax. No pleural or pericardial effusions Remote CABG Degenerative bony changes Electronically Signed: Ben Young MD at 19:13 EST , Service support , Medical Necessity - Tobacco Use Smoking Status: Former smoker Tobacco Use: Non-smoker Assessment/Plan All Active Problems (Last Reviewed 05/12/20 @ 07:[address] Eligio Garcia MD) Atrial fibrillation with rapid ventricular response (Acute) Acute on chronic anemia (Acute) Weakness (Acute) Respiratory failure (Acute) Acute exacerbation of CHF (congestive heart failure) (Acute) CHF (congestive heart failure) (Acute) [employer] oil [employer] current use of anticoagulant (Acute) ST segment depression (Acute) Dyspnea on exertion (Acute) Abnormal stress test (Acute) Pre-operative cardiovascular examination (Acute) Personal history of colonic polyps (Acute) Anemia (Acute) Blood clots in stool (Resolved) RECOMMENDATIONS: 1. Continue monitoring off antibiotics 2. Continue aggressive diuresis. Potassium repletion as indicated 3. Aggressive rate control for A. fib 4. Add Acapella for pulmonary toileting 5. Wean oxygen as tolerated 6. Consider active reversal of Coumadin given possible GI bleed IMPRESSIONS: 1. Acute hypoxic respiratory insufficiency Unclear etiology. Patient does have a history of diastolic CHF, so this would be a possibility. Patient is also had decrease in H&H despite negative GI bleeding scan and lack of clinical indicators. Patient has been on antibiotics for several days with no improvement. Patient did have an initial leukocytosis, but no fevers have been noted. Diffuse alveolar hemorrhage would be a consideration. Patient with extensive bilateral bronchiectasis noted on CT scan along with a crazy paving pattern on the left-hand side. This may be secondary to volume overload as patient appears to be responding to diuretics well. Pattern does not appear to be in keeping with amiodarone toxicity. Would recommend adding Acapella for pulmonary toileting to avoid future infections, but monitoring off of antibiotics appropriate in the acute setting. 2. Paroxysmal A. fib/supratherapeutic INR/anemia Patient with significant drop in hemoglobin with a supratherapeutic INR. Consider acute reversal of anticoagulation with FFP. Defer to primary service. Patient would benefit from rate control given history of diastolic dysfunction. 3. Advanced age/CKD stage III/CAD/hypertension/hyperlipidemia/history of VTE/history of colon cancer/hypothyroidism/BPH Complicates care, management, recovery and prognosis. Would prefer a CTA of the chest for evaluation of mediastinal structures given significant tortuous trachea, but given renal function this is likely not a good initial test. Patient reports he has a history of lymphoma, but colon cancer is in the medical record. Patient could have decreased venous return from the left side leading to current imaging study. Patient likely not hemodynamically appropriate for optimization of TURP later this week. Conservative therapy with Briones catheter likely indicated until respiratory status can be stabilized. Inpatient E&M: [id number] Subs Hosp L2
[2020-06-06] MEDS: Atorvastatin Calcium 80 MG Tablet PO (22:59)
[2020-06-06] MEDS: Tamsulosin HCl 0.4 MG Capsule PO (22:59)
[2020-06-06] MEDS: Magnesium Hydroxide 30 ML UDC PO (22:59)
[2020-06-07] VITALS (15 sets, daily range): BP systolic 95–104; BP diastolic 48–62; PULSE 85–104; RESP 18–19; TEMP 36.2–36.7; O2SAT 78–98
[2020-06-07 04:51] LABS: Hematocrit 28.5 % (40-54); Hemoglobin 8.7 g/dL (13.0-16.5); Mean Corp Hgb Conc 30.5 g/dL (32-36); Mean Corpuscular Hgb 28.3 pg (27.0-32.0); Mean Corpuscular Volume 92.8 fL (80-94); Mean Platelet Vol. 10.2 fl (6.2-12.0); Platelet Count 238 K/mm3 (150-450); RBC Distribution Width CV 16.1 % (11.6-14.6); RBC Distribution Width SD 54.7 fl (35.1-43.9); Red Blood Count 3.07 M/mm3 (4.6-6.2)
[2020-06-07 05:07] LABS: BUN 28 mg/dL (7-18); Creatinine, Serum 1.08 mg/dL (0.70-1.30); EST Glomerular Filtration Rate 69 mL/min (>60); Est Glom Filt Rate - Afr Amer 84 mL/min (>60); Estimated Creatinine Clearance 55.88 ml/min; Glucose 90 mg/dL (74-106)
[2020-06-07 05:08] LABS: Anion Gap 5 (5-15); BUN/Creat Ratio 25.9 RATIO (10-20); Calcium,Total 8.9 mg/dL (8.5-10.1); Chloride 102 mmol/L (98-107); Potassium 3.7 mmol/L (3.5-5.1); Sodium Level 136 mmol/L (136-145)
[2020-06-07] MEDS: Senna/Docusate Sodium 1 Tablet 2 TABLET PO (06:35)
[2020-06-07] MEDS: Levothyroxine 125 MCG Tablet PO (06:35)
[2020-06-07] MEDS: Ipratropium/Albuterol Sulfate 3 ML AMPUL.NEB INHALATION ×3 (08:00→14:30)
[2020-06-07] MEDS: Amiodarone 200 MG Tablet 100 MG PO (08:45)
[2020-06-07] MEDS: Ferrous Sulfate 325 MG Tablet PO ×3 (08:45→16:41)
[2020-06-07] MEDS: Metoprolol(XL)Succ 50 MG Tablet PO (08:45)
[2020-06-07] MEDS: Famotidine 20 MG Tablet PO (08:45)
[2020-06-07] MEDS: Furosemide 40 MG/4 ML Vial IV (08:47)
--- NOTE | 2020-06-07 09:22 | RAD_ITS ---
STUDY: X-RAY CHEST REASON FOR EXAM: Male, 84 years old. HYPOXIA HX OF CHF TECHNIQUE: PA and lateral views of the chest. COMPARISON: 06/05/2020 FINDINGS: Status post median sternotomy. Decrease in alveolar opacity in both lungs consistent with improving bilateral pneumonia. No change in the right-sided pleural effusion or pleural thickening. There is moderate cardiac enlargement. Normal mediastinum and megan. Normal visualized pulmonary arteries. Normal visualized aortic arch and descending thoracic aorta. Normal visualized thoracic spine. Normal visualized ribs, clavicles, and shoulders. There is no demonstrated abnormality of the visualized soft tissue structures of the upper abdomen. RAD/Chest PA and Lateral IMPRESSION: Improved bilateral pneumonia. Electronically Signed: Diego Ferraro MD at 13:50 EST Tel , Service support ,
[2020-06-07 11:09] LABS: International Normalized Ratio 2.1
--- NOTE | 2020-06-07 13:30 | CASEMGMT ---
At this time, pt needs 12 L with ambulation at this time. Plan is not for discharge at this time. CM to follow. SStkaryn RN CM
--- NOTE | 2020-06-07 13:57 | PN_ITS ---
Patient Problems: Active and Suspected Problems (Last Reviewed 05/12/20 @ 07:[address] Eligio Garcia MD) Atrial fibrillation with rapid ventricular response (Acute) Acute on chronic anemia (Acute) Weakness (Acute) Respiratory failure (Acute) Acute exacerbation of CHF (congestive heart failure) (Acute) CHF (congestive heart failure) (Acute) half-way current use of anticoagulant (Acute) ST segment depression (Acute) Dyspnea on exertion (Acute) Abnormal stress test (Acute) Pre-operative cardiovascular examination (Acute) Personal history of colonic polyps (Acute) Anemia (Acute) Subjective: Patient did well overnight. Patient reports he feels subjectively improved compared to previous. Patient is requiring supplemental oxygen to maintain saturations, but states his breathing is easy at rest. Patient is reporting only an intermittent cough with mild production Objective: Walking oximetry completed. Patient requires no oxygen at rest, but 12 L to maintain saturations with exertion. - Physical Exam Vitals/I&O's: Vital Signs Temp Pulse Resp BP Pulse Ox 36.5 C L 87 18 104/53 L 93 06/07/20 08:35 06/07/20 11:12 06/07/20 11:12 06/07/20 08:45 06/07/20 12:23 Oxygen Flow Rate (L/min) [ 12 AMBULATION with Oxygen] Oxygen Flow Rate (L/min) [ 0 AMBULATING on Room Air] Oxygen Flow Rate (L/min) [At 0 REST on Room Air] Oxygen Flow Rate (L/min) 2 Oxygen Delivery Method Nasal Cannula Weight: 97.5 kg Body Mass Index (BMI) 30.1 Intake and Output for Last 24 Hours 06/05/20 06/06/20 06/07/20 23:59 23:59 23:59 Intake Total 1425 / 1545 2080 / 2080 240 / 240 Output Total 2550 / 4250 3575 / 4175 1650 / 1650 Balance -1125 / -2705 -1495 / -2095 -1410 / -1410 General: Alert, Oriented x3, Cooperative, No apparent distress, - - No conversational dyspnea HEENT: Atraumatic, PERRLA, EOMI, Normocephalic, - - Glasses in place. Oral: Moist Mucosa, No Gingival or Mucosal Lesions/ Ulcerations Neck: Supple, No Nodes, Trachea Midline, JVD, Right Lungs: No rhonchi, No wheeze, No rales, Diminished, - - Symmetric expansion Cardiovascular: Normal S1, Normal S2, Irregular Rate, Murmur, No rub noted, No Gallop Abdomen: Bowel Sounds Present, Soft, Non Tender, Non-Distended, Obese Extremities: No clubbing, No cyanosis, Edema Skin: - - No change from previous Musculoskeletal: No Tenderness to Palpation of Joints or Extremities Lymphatic: No Cervical, Supraclavicular, or Inguinal Adenopathy Neurological: Cranial nerves II-XII grossly intact, Neuro grossly intact, Motor Exam 5/5 strength throughout Psych/Mental Status: Alert and oriented to time, place, person, mood and affect Laboratory Results 06/07/20 04:44: WBC 7.0, RBC 3.07 L, Hgb 8.7 L, Hct 28.5 L, MCV 92.8, MCH 28.3, MCHC 30.5 L, RDW Std Deviation 54.7 H, RDW Coeff of Marcelino 16.1 H, Plt Count 238, MPV 10.2 06/07/20 04:44: Sodium 136, Potassium 3.7, Chloride 102, Carbon Dioxide 29.0, Anion Gap 5, BUN 28 H, Creatinine 1.08, Estim Creat Clear Calc 55.88, Est GFR (MDRD) Af Amer 84, Est GFR (MDRD) Non-Af 69, BUN/Creatinine Ratio 25.9 H, Glucose 90, Calcium 8.9 06/07/20 10:45: PT 23.0 H, INR 2.1 Current Medications Acetaminophen (Acetaminophen 325 Mg Tablet) 650 mg PO Q6H PRN PRN PRN Reason: Pain Score 1-10/Temp > 100.7 F Al Hydroxide/Mg Hydroxide (Mag Hydrox/Al Hydrox/Simeth 30 Ml Udc) 30 ml PO Q6H PRN PRN PRN Reason: Gastric Burning Albuterol Sulfate (Albuterol 2.5 Mg/3 Ml Vial.Neb.) 2.5 mg INHALATION Q2H PRN PRN PRN Reason: Dyspnea, wheezing Albuterol/Ipratropium (Ipratropium/Albuterol Sulfate 3 Ml Ampul.Neb) 3 ml INHALATION Q4HWA.RT [facility] Last Admin: 06/07/20 11:11 Dose: 3 ml Documented by: Amiodarone HCl (Amiodarone 200 Mg Tablet) 100 mg PO DAILY [facility] Last Admin: 06/07/20 08:45 Dose: 100 mg Documented by: Atorvastatin Calcium (Atorvastatin Calcium 80 Mg Tablet) 80 mg PO QHS [facility] Last Admin: 06/06/20 22:59 Dose: 80 mg Documented by: Famotidine (Famotidine 20 Mg Tablet) 20 mg PO DAILY [facility] Last Admin: 06/07/20 08:45 Dose: 20 mg Documented by: Ferrous Sulfate (Ferrous Sulfate 325 Mg Tablet) 325 mg PO TIDCM [facility] Last Admin: 06/07/20 12:34 Dose: 325 mg Documented by: Furosemide (Furosemide 40 Mg/4 Ml Vial) 40 mg IV BID@1000,1800 [facility] Last Admin: 06/07/20 08:47 Dose: 40 mg Documented by: Guaifenesin (Guaifenesin 10 Ml Udc (200mg/10ml)) 20 ml PO Q4H PRN PRN PRN Reason: COUGH Hydralazine HCl (Hydralazine 20 Mg/Ml Vial) 10 mg IV Q4H PRN PRN PRN Reason: SBP > 160 Sodium Chloride () 500 mls @ 15 mls/hr IV PRN PRN PRN Reason: Blood Transfusion Sodium Chloride () 250 mls @ 15 mls/hr IV .[id number] PRN PRN Reason: Saline Flush Sodium Chloride () 250 mls @ 15 mls/hr IV .[id number] PRN PRN Reason: Additional IVPB Infusion Levothyroxine Sodium (Levothyroxine 125 Mcg Tablet) 125 mcg PO DAILY@0600 [facility] Last Admin: 06/07/20 06:35 Dose: 125 mcg Documented by: Magnesium Hydroxide (Magnesium Hydroxide 30 Ml Udc) 30 ml PO DAILY PRN PRN PRN Reason: Constipation Last Admin: 06/06/20 22:59 Dose: 30 ml Documented by: Melatonin (Melatonin 3 Mg Tablet) 3 mg PO QHS PRN PRN PRN Reason: INSOMNIA Metoprolol Succinate (Metoprolol(Xl)Succ 50 Mg Tablet) 50 mg PO DAILY [facility] Last Admin: 06/07/20 08:45 Dose: 50 mg Documented by: Morphine Sulfate (Morphine 2 Mg/Ml Syringe) 2 mg IV Q3H PRN PRN PRN Reason: Pain Score 6-10 Nitroglycerin (Nitroglycerin (Inpatient Use) 0.4 Mg Tab.Subl) 0.4 mg SUBLINGUAL Q5M PRN PRN Reason: CARDIAC/CHEST PAIN Ondansetron HCl (Ondansetron 4 Mg/2 Ml Vial) 4 mg IV Q8H PRN PRN PRN Reason: NAUSEA/VOMITING Oxycodone HCl (Oxycodone 5 Mg Tablet) 5 mg PO Q4H PRN PRN PRN Reason: Pain Score 4-5 Prochlorperazine Edisylate (Prochlorperazine 10 Mg/2 Ml Vial) 5 mg IV Q4H PRN PRN PRN Reason: Breakthrough Nausea/Vomiting Psyllium Hydrophilic Mucilloid (Psyllium 1 Packet) 1 packet PO DAILY PRN PRN PRN Reason: Constipation Senna/Docusate Sodium (Senna/Docusate Sodium 1 Tablet) 2 tablet PO BID PRN PRN PRN Reason: Constipation Last Admin: 06/07/20 06:35 Dose: 2 tablet Documented by: Sodium Chloride (0.9% Saline Lock 10 Ml Syringe) 10 - 40 ml IV UD PRN PRN Reason: SALINE FLUSH Last Admin: 06/05/20 21:50 Dose: 10 ml Documented by: Tamsulosin HCl (Tamsulosin Hcl 0.4 Mg Capsule) 0.4 mg PO QHS [facility] Last Admin: 06/06/20 22:59 Dose: 0.4 mg Documented by: Throat Lozenges (Benzocaine/Menthol 1 Lozenge) 1 lozenge MUCOUS MEM Q2H PRN PRN PRN Reason: SORE THROAT Clinical Impression(s) from Imaging Studies Chest X-Ray 06/07/20 09:22 IMPRESSION: Improved bilateral pneumonia. Electronically Signed: Diego Ferraro MD at 13:50 EST Tel , Service support , Medical Necessity - Tobacco Use Smoking Status: Former smoker Tobacco Use: Non-smoker Assessment/Plan All Active Problems (Last Reviewed 05/12/20 @ 07:[address] Eligio Garcia MD) Atrial fibrillation with rapid ventricular response (Acute) Acute on chronic anemia (Acute) Weakness (Acute) Respiratory failure (Acute) Acute exacerbation of CHF (congestive heart failure) (Acute) CHF (congestive heart failure) (Acute) half-way current use of anticoagulant (Acute) ST segment depression (Acute) Dyspnea on exertion (Acute) Abnormal stress test (Acute) Pre-operative cardiovascular examination (Acute) Personal history of colonic polyps (Acute) Anemia (Acute) Blood clots in stool (Resolved) RECOMMENDATIONS: 1. Continue monitoring off antibiotics 2. Continue aggressive diuresis. Potassium repletion as indicated 3. Aggressive rate control for A. fib 4. Add Acapella for pulmonary toileting 5. Wean oxygen as tolerated 6. No reversal of Coumadin required at this time IMPRESSIONS: 1. Acute hypoxic respiratory insufficiency Unclear etiology. Patient does have a history of diastolic CHF, so this would be a possibility. Patient is also had decrease in H&H despite negative GI bleeding scan and lack of clinical indicators. Patient has been on antibiotics for several days with no improvement. Patient did have an initial leukocytosis, but no fevers have been noted. Patient with low requirements at rest is not consistent with diffuse alveolar hemorrhage. However, high oxygen requirements with exertion would be suggestive of pulmonary hypertension. Patient recently had a echocardiogram, so likely not necessary to repeat. However, continue diuresis would be indicated. Depending on discharge plan, patient may require additional diuresis before he can be discharged home as his activity will be significantly limited at this time. Chest x-ray did show improvement in infiltrates suggestive of congestive heart failure. Bronchiectasis is likely a confounder, but patient is not reporting signs or symptoms consistent with exacerbation at this time. 2. Paroxysmal A. fib/supratherapeutic INR/anemia Patient with significant drop in hemoglobin with a supratherapeutic INR. Consider acute reversal of anticoagulation with FFP. Defer to primary service. Patient would benefit from rate control given history of diastolic dysfunction. 3. Advanced age/CKD stage III/CAD/hypertension/hyperlipidemia/history of VTE/history of colon cancer/hypothyroidism/BPH Complicates care, management, recovery and prognosis. Would prefer a CTA of the chest for evaluation of mediastinal structures given significant tortuous trachea, but given renal function this is likely not a good initial test. Patient reports he has a history of lymphoma, but colon cancer is in the medical record. Patient could have decreased venous return from the left side leading to current imaging study. Patient likely not hemodynamically appropriate for optimization of TURP later this week. Conservative therapy with Briones catheter likely indicated until respiratory status can be stabilized. Inpatient E&M: 91021 Subs Hosp L2
--- NOTE | 2020-06-07 14:13 | PN_ITS ---
Patient Problems: Active and Suspected Problems (Last Reviewed 05/12/20 @ 07:[address] Eligio Garcia MD) Atrial fibrillation with rapid ventricular response (Acute) Acute on chronic anemia (Acute) Weakness (Acute) Respiratory failure (Acute) Acute exacerbation of CHF (congestive heart failure) (Acute) CHF (congestive heart failure) (Acute) detention current use of anticoagulant (Acute) ST segment depression (Acute) Dyspnea on exertion (Acute) Abnormal stress test (Acute) Pre-operative cardiovascular examination (Acute) Personal history of colonic polyps (Acute) Anemia (Acute) Subjective: Patient seen and examined. Denies shortness of breath. Denies other symptoms or complaints. Continues to require significant supplemental oxygen. - Physical Exam Vitals/I&O's: Vital Signs Temp Pulse Resp BP Pulse Ox 97.7 F L 87 18 104/53 L 93 06/07/20 08:35 06/07/20 11:12 06/07/20 11:12 06/07/20 08:45 06/07/20 12:23 Oxygen Flow Rate (L/min) [ 12 AMBULATION with Oxygen] Oxygen Flow Rate (L/min) [ 0 AMBULATING on Room Air] Oxygen Flow Rate (L/min) [At 0 REST on Room Air] Oxygen Flow Rate (L/min) 2 Oxygen Delivery Method Nasal Cannula Weight: 214 lb 15.211 oz Body Mass Index (BMI) 30.1 Intake and Output for Last 24 Hours 06/05/20 06/06/20 06/07/20 23:59 23:59 23:59 Intake Total 1425 / 1545 2080 / 2080 240 / 240 Output Total 2550 / 4250 3575 / 4175 1650 / 1650 Balance -1125 / -2705 -1495 / -2095 -1410 / -1410 General: Alert, Oriented x3, Cooperative HEENT: Atraumatic, PERRLA, EOMI, Normocephalic Neck: Supple, No JVD, Negative Carotid Bruits Lungs: Diminished, - - Faint scattered crackles Cardiovascular: - - Atrial fibrillation Abdomen: Bowel Sounds Present, Soft, Non Tender, Non-Distended Extremities: No clubbing, No cyanosis, No edema, Capillary Refill Less than 3 Seconds Skin: No rashes, No breakdown Musculoskeletal: No Tenderness to Palpation of Joints or Extremities Neurological: Cranial nerves II-XII grossly intact, Neuro grossly intact Psych/Mental Status: Normal Affect, Appropriate Laboratory Results 06/07/20 04:44: WBC 7.0, RBC 3.07 L, Hgb 8.7 L, Hct 28.5 L, MCV 92.8, MCH 28.3, MCHC 30.5 L, RDW Std Deviation 54.7 H, RDW Coeff of Marcelino 16.1 H, Plt Count 238, MPV 10.2 06/07/20 04:44: Sodium 136, Potassium 3.7, Chloride 102, Carbon Dioxide 29.0, Anion Gap 5, BUN 28 H, Creatinine 1.08, Estim Creat Clear Calc 55.88, Est GFR (MDRD) Af Amer 84, Est GFR (MDRD) Non-Af 69, BUN/Creatinine Ratio 25.9 H, Glucose 90, Calcium 8.9 06/07/20 10:45: PT 23.0 H, INR 2.1 Current Medications Acetaminophen (Acetaminophen 325 Mg Tablet) 650 mg PO Q6H PRN PRN PRN Reason: Pain Score 1-10/Temp > 100.7 F Al Hydroxide/Mg Hydroxide (Mag Hydrox/Al Hydrox/Simeth 30 Ml Udc) 30 ml PO Q6H PRN PRN PRN Reason: Gastric Burning Albuterol Sulfate (Albuterol 2.5 Mg/3 Ml Vial.Neb.) 2.5 mg INHALATION Q2H PRN PRN PRN Reason: Dyspnea, wheezing Albuterol/Ipratropium (Ipratropium/Albuterol Sulfate 3 Ml Ampul.Neb) 3 ml INHALATION Q4HWA.RT [facility] Last Admin: 06/07/20 11:11 Dose: 3 ml Documented by: Amiodarone HCl (Amiodarone 200 Mg Tablet) 100 mg PO DAILY [facility] Last Admin: 06/07/20 08:45 Dose: 100 mg Documented by: Atorvastatin Calcium (Atorvastatin Calcium 80 Mg Tablet) 80 mg PO QHS [facility] Last Admin: 06/06/20 22:59 Dose: 80 mg Documented by: Famotidine (Famotidine 20 Mg Tablet) 20 mg PO DAILY [facility] Last Admin: 06/07/20 08:45 Dose: 20 mg Documented by: Ferrous Sulfate (Ferrous Sulfate 325 Mg Tablet) 325 mg PO TIDCM [facility] Last Admin: 06/07/20 12:34 Dose: 325 mg Documented by: Furosemide (Furosemide 40 Mg/4 Ml Vial) 40 mg IV BID@1000,1800 [facility] Last Admin: 06/07/20 08:47 Dose: 40 mg Documented by: Guaifenesin (Guaifenesin 10 Ml Udc (200mg/10ml)) 20 ml PO Q4H PRN PRN PRN Reason: COUGH Hydralazine HCl (Hydralazine 20 Mg/Ml Vial) 10 mg IV Q4H PRN PRN PRN Reason: SBP > 160 Sodium Chloride () 500 mls @ 15 mls/hr IV PRN PRN PRN Reason: Blood Transfusion Sodium Chloride () 250 mls @ 15 mls/hr IV .[id number] PRN PRN Reason: Saline Flush Sodium Chloride () 250 mls @ 15 mls/hr IV .[id number] PRN PRN Reason: Additional IVPB Infusion Levothyroxine Sodium (Levothyroxine 125 Mcg Tablet) 125 mcg PO DAILY@0600 [facility] Last Admin: 06/07/20 06:35 Dose: 125 mcg Documented by: Magnesium Hydroxide (Magnesium Hydroxide 30 Ml Udc) 30 ml PO DAILY PRN PRN PRN Reason: Constipation Last Admin: 06/06/20 22:59 Dose: 30 ml Documented by: Melatonin (Melatonin 3 Mg Tablet) 3 mg PO QHS PRN PRN PRN Reason: INSOMNIA Metoprolol Succinate (Metoprolol(Xl)Succ 50 Mg Tablet) 50 mg PO DAILY [facility] Last Admin: 06/07/20 08:45 Dose: 50 mg Documented by: Morphine Sulfate (Morphine 2 Mg/Ml Syringe) 2 mg IV Q3H PRN PRN PRN Reason: Pain Score 6-10 Nitroglycerin (Nitroglycerin (Inpatient Use) 0.4 Mg Tab.Subl) 0.4 mg SUBLINGUAL Q5M PRN PRN Reason: CARDIAC/CHEST PAIN Ondansetron HCl (Ondansetron 4 Mg/2 Ml Vial) 4 mg IV Q8H PRN PRN PRN Reason: NAUSEA/VOMITING Oxycodone HCl (Oxycodone 5 Mg Tablet) 5 mg PO Q4H PRN PRN PRN Reason: Pain Score 4-5 Prochlorperazine Edisylate (Prochlorperazine 10 Mg/2 Ml Vial) 5 mg IV Q4H PRN PRN PRN Reason: Breakthrough Nausea/Vomiting Psyllium Hydrophilic Mucilloid (Psyllium 1 Packet) 1 packet PO DAILY PRN PRN PRN Reason: Constipation Senna/Docusate Sodium (Senna/Docusate Sodium 1 Tablet) 2 tablet PO BID PRN PRN PRN Reason: Constipation Last Admin: 06/07/20 06:35 Dose: 2 tablet Documented by: Sodium Chloride (0.9% Saline Lock 10 Ml Syringe) 10 - 40 ml IV UD PRN PRN Reason: SALINE FLUSH Last Admin: 06/05/20 21:50 Dose: 10 ml Documented by: Tamsulosin HCl (Tamsulosin Hcl 0.4 Mg Capsule) 0.4 mg PO QHS [facility] Last Admin: 06/06/20 22:59 Dose: 0.4 mg Documented by: Throat Lozenges (Benzocaine/Menthol 1 Lozenge) 1 lozenge MUCOUS MEM Q2H PRN PRN PRN Reason: SORE THROAT Medical Necessity - Tobacco Use Smoking Status: Former smoker Tobacco Use: Non-smoker Assessment/Plan All Active Problems (Last Reviewed 05/12/20 @ 07:[address] Eligio Garcia MD) Atrial fibrillation with rapid ventricular response (Acute) Acute on chronic anemia (Acute) Weakness (Acute) Respiratory failure (Acute) Acute exacerbation of CHF (congestive heart failure) (Acute) CHF (congestive heart failure) (Acute) detention current use of anticoagulant (Acute) ST segment depression (Acute) Dyspnea on exertion (Acute) Abnormal stress test (Acute) Pre-operative cardiovascular examination (Acute) Personal history of colonic polyps (Acute) Anemia (Acute) Blood clots in stool (Resolved) 1. Acute on chronic anemia, supratherapeutic INR-status post 4 units PRBC. Hemoglobin now stable, 8.7. Patient states he has had prior endoscopies for ongoing anemia with no evidence of GI bleeding. Continue iron supplementation. Stool for occult blood negative. Bleeding scan ordered for further evaluation which was unremarkable. INR now 2.1. Resume Coumadin tonight and trend INR. 2. Paroxysmal atrial fibrillation with RVR-rate now controlled. Continue amiodarone, metoprolol. 3. Acute hypoxic respiratory insufficiency secondary to acute diastolic CHF, possible bronchiectasis contributing-BNP 217. Chest x-ray with congestion, possible left lower lobe infiltrate. Echo February 2020 demonstrated an EF of 60%, no evidence of diastolic dysfunction. Mild aortic stenosis. Continue IV Lasix. Strict I&O. Daily weight. Further antibiotics discontinued. Pneumonia ruled out. Leukocytosis and low-grade fever resolved. Continue supplement oxygen to maintain O2 sat above 90%. Covid antigen on admission negative. Repeat Covid PCR negative. CT of chest shows underlying emphysema with diffuse interstitial changes and nonspecific pleural thickening. Left upper and left lower lobe infiltrates. Patient remains on 6 L nasal cannula. Pulmonary medicine following. 4. Urinary retention/BPH- Planned for TURP with Dr. Garcia 06/09/2020. Briones placed. Patient previously straight cathing at home. Continue Flomax. At discharge, plan for discharge with Briones and continued outpatient follow-up with urology. 5. Elevated bilirubin, jaundice appearance-abdominal ultrasound shows cholelithiasis. Negative Madison sign. Bilirubin trended down. Asymptomatic. Trend CMP. 6. CAD with history of previous interventions-aspirin on hold. Continue statin, beta-mack. 7. Chronic kidney disease stage III-at baseline, trend BMP. 8. Hypertension-stable, continue current regimen. 9. Hyperlipidemia-continue statin. 10. Chronic COPD-as needed albuterol aerosol. 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 12. History of colon cancer status post colectomy-in remission. 13. Hypothyroidism-TSH 5.8. Free T4 1.5. Continue current Synthroid regimen. DVT prophylaxis-Coumadin This patient was seen by JOSÉ MANUEL Stephens under the supervision of Dr. Blair.
[2020-06-07] MEDS: Furosemide 500 MG in Empty Viaflex 50 mL 1 EACH CONT INF (15:10)
[2020-06-07] MEDS: Jantoven 2 MG Tablet PO (16:41)
[2020-06-07 19:19] LABS: Anion Gap 5 (5-15); BUN 25 mg/dL (7-18); BUN/Creat Ratio 22.3 RATIO (10-20); Calcium,Total 8.8 mg/dL (8.5-10.1); Chloride 101 mmol/L (98-107); Creatinine, Serum 1.12 mg/dL (0.70-1.30); EST Glomerular Filtration Rate 66 mL/min (>60); Est Glom Filt Rate - Afr Amer 80 mL/min (>60); Estimated Creatinine Clearance 53.89 ml/min; Glucose 115 mg/dL (74-106); Potassium 3.8 mmol/L (3.5-5.1); Sodium Level 136 mmol/L (136-145)
--- NOTE | 2020-06-07 19:38 | CPS ---
pt found on room air-sat 93% pt placed on 2 l/m nc for bedtime
[2020-06-07] MEDS: Atorvastatin Calcium 80 MG Tablet PO (22:44)
[2020-06-07] MEDS: Tamsulosin HCl 0.4 MG Capsule PO (22:44)
[2020-06-08] VITALS (23 sets, daily range): BP systolic 99–117; BP diastolic 54–68; PULSE 85–131; RESP 16–19; TEMP 36.2–36.5; O2SAT 87–98
--- NOTE | 2020-06-08 01:25 | PCS.PANDOC ---
PANDEMIC DOCUMENTATION INITIATED: Date: 06/03/2020 Time: 731
[2020-06-08] MEDS: Levothyroxine 125 MCG Tablet PO (05:12)
[2020-06-08] MEDS: 0.9% Saline Lock 10 ML Syringe IV (05:12)
[2020-06-08 05:47] LABS: Hematocrit 30.7 % (40-54); Hemoglobin 9.3 g/dL (13.0-16.5); Mean Corp Hgb Conc 30.3 g/dL (32-36); Mean Corpuscular Hgb 28.3 pg (27.0-32.0); Mean Corpuscular Volume 93.3 fL (80-94); Mean Platelet Vol. 9.7 fl (6.2-12.0); Platelet Count 271 K/mm3 (150-450); RBC Distribution Width CV 15.8 % (11.6-14.6); RBC Distribution Width SD 54.2 fl (35.1-43.9); Red Blood Count 3.29 M/mm3 (4.6-6.2); White Blood Count 7.4 K/mm3 (4.4-11.0)
[2020-06-08 05:56] LABS: International Normalized Ratio 1.6; Prothrombin Time (Protime)PT. 18.8 SECONDS (11.7-14.9)
[2020-06-08 06:07] LABS: ALB/GLOB Ratio 0.5 RATIO (0.9-2.4); AST(SGOT) 167 U/L (15-37); Alanine Aminotransfer ALT/SGPT 105 U/L (16-61); Albumin, Serum 2.2 g/dL (3.2-5.0); Alkaline Phosphatase 358 U/L (45-117); Anion Gap 6 (5-15); BUN 25 mg/dL (7-18); BUN/Creat Ratio 21.9 RATIO (10-20); Calcium,Total 8.9 mg/dL (8.5-10.1); Chloride 97 mmol/L (98-107); Creatinine, Serum 1.14 mg/dL (0.70-1.30); EST Glomerular Filtration Rate 65 mL/min (>60); Est Glom Filt Rate - Afr Amer 79 mL/min (>60); Estimated Creatinine Clearance 52.94 ml/min; Globulin 4.6 g/dL (2.2-4.2); Glucose 85 mg/dL (74-106); Potassium 3.5 mmol/L (3.5-5.1); Protein, Total 6.8 g/dL (6.4-8.2); Sodium Level 136 mmol/L (136-145)
[2020-06-08] MEDS: Ipratropium/Albuterol Sulfate 3 ML AMPUL.NEB INHALATION ×4 (06:38→19:20)
[2020-06-08] MEDS: Ferrous Sulfate 325 MG Tablet PO ×3 (08:17→16:39)
[2020-06-08] MEDS: Famotidine 20 MG Tablet PO (08:17)
[2020-06-08] MEDS: Amiodarone 200 MG Tablet 100 MG PO (08:18)
[2020-06-08] MEDS: Metoprolol(XL)Succ 50 MG Tablet PO (08:19)
--- NOTE | 2020-06-08 10:30 | PCM.PN.PUL ---
Patient Problems: Active and Suspected Problems (Last Reviewed 05/12/20 @ 07:[address] Eligio Garcia MD) Atrial fibrillation with rapid ventricular response (Acute) Acute on chronic anemia (Acute) Weakness (Acute) Respiratory failure (Acute) Acute exacerbation of CHF (congestive heart failure) (Acute) CHF (congestive heart failure) (Acute) half-way current use of anticoagulant (Acute) ST segment depression (Acute) Dyspnea on exertion (Acute) Abnormal stress test (Acute) Pre-operative cardiovascular examination (Acute) Personal history of colonic polyps (Acute) Anemia (Acute) Subjective: Patient did well overnight. Patient states he feels well at rest. Patient does have dyspnea on exertion. No chest pain or cough is been reported. Patient was placed on a Lasix drip yesterday and tolerated this well. - Physical Exam Vitals/I&O's: Vital Signs Temp Pulse Resp BP Pulse Ox 36.5 C L 114 H 18 117/61 94 06/08/20 08:15 06/08/20 08:19 06/08/20 08:15 06/08/20 08:15 06/08/20 08:33 Oxygen Flow Rate (L/min) [ 12 AMBULATION with Oxygen] Oxygen Flow Rate (L/min) [ 0 AMBULATING on Room Air] Oxygen Flow Rate (L/min) [At 0 REST on Room Air] Oxygen Flow Rate (L/min) 2 Oxygen Delivery Method Nasal Cannula Weight: 94.5 kg Body Mass Index (BMI) 30.1 Intake and Output for Last 24 Hours 06/06/20 06/07/20 06/08/20 23:59 23:59 23:59 Intake Total 2079 / 2080 480 / 720 440 / 440 Output Total 3575 / 4175 2150 / 3350 2350 / 2350 Balance -1495 / -2095 -1670 / -2630 -1910 / -1910 General: Alert, Oriented x3, Cooperative, No apparent distress, - - No scleral icterus or injection noted. No conversational dyspnea. HEENT: Atraumatic, PERRLA, EOMI, Normocephalic Oral: Moist Mucosa, No Gingival or Mucosal Lesions/ Ulcerations Neck: Supple, No JVD, No Nodes, Trachea Midline Lungs: No rhonchi, No wheeze, No rales, Diminished Cardiovascular: Normal S1, Normal S2, No murmurs, No rub noted, No Gallop, Tachycardic Abdomen: Bowel Sounds Present, Soft, Non Tender, Non-Distended Extremities: No clubbing, No cyanosis, Edema Skin: - - No change from previous Musculoskeletal: No Tenderness to Palpation of Joints or Extremities Lymphatic: No Cervical, Supraclavicular, or Inguinal Adenopathy Neurological: Cranial nerves II-XII grossly intact, Neuro grossly intact, Motor Exam 5/5 strength throughout Psych/Mental Status: Alert and oriented to time, place, person, mood and affect Laboratory Results 06/07/20 10:45: PT 23.0 H, INR 2.1 06/07/20 18:57: Sodium 136, Potassium 3.8, Chloride 101, Carbon Dioxide 30.0, Anion Gap 5, BUN 25 H, Creatinine 1.12, Estim Creat Clear Calc 53.89, Est GFR (MDRD) Af Amer 80, Est GFR (MDRD) Non-Af 66, BUN/Creatinine Ratio 22.3 H, Glucose 115 H, Calcium 8.8 06/08/20 05:24: PT 18.8 H, INR 1.6 06/08/20 05:24: WBC 7.4, RBC 3.29 L, Hgb 9.3 L, Hct 30.7 L, MCV 93.3, MCH 28.3, MCHC 30.3 L, RDW Std Deviation 54.2 H, RDW Coeff of Marcelino 15.8 H, Plt Count 271, MPV 9.7 06/08/20 05:24: Sodium 136, Potassium 3.5, Chloride 97 L, Carbon Dioxide 33.0 H, Anion Gap 6, BUN 25 H, Creatinine 1.14, Estim Creat Clear Calc 52.94, Est GFR (MDRD) Af Amer 79, Est GFR (MDRD) Non-Af 65, BUN/Creatinine Ratio 21.9 H, Glucose 85, Calcium 8.9, Total Bilirubin 1.10 H, AST 167 H, ALT 105 H, Alkaline Phosphatase 358 H, Total Protein 6.8, Albumin 2.2 L, Globulin 4.6 H, Albumin/Globulin Ratio 0.5 L Current Medications Acetaminophen (Acetaminophen 325 Mg Tablet) 650 mg PO Q6H PRN PRN PRN Reason: Pain Score 1-10/Temp > 100.7 F Albuterol Sulfate (Albuterol 2.5 Mg/3 Ml Vial.Neb.) 2.5 mg INHALATION Q2H PRN PRN PRN Reason: Dyspnea, wheezing Albuterol/Ipratropium (Ipratropium/Albuterol Sulfate 3 Ml Ampul.Neb) 3 ml INHALATION Q4HWA.RT [facility] Last Admin: 06/08/20 06:38 Dose: 3 ml Documented by: Amiodarone HCl (Amiodarone 200 Mg Tablet) 100 mg PO DAILY [facility] Last Admin: 06/08/20 08:18 Dose: 100 mg Documented by: Atorvastatin Calcium (Atorvastatin Calcium 80 Mg Tablet) 80 mg PO QHS [facility] Last Admin: 06/07/20 22:44 Dose: 80 mg Documented by: Famotidine (Famotidine 20 Mg Tablet) 20 mg PO DAILY [facility] Last Admin: 06/08/20 08:17 Dose: 20 mg Documented by: Ferrous Sulfate (Ferrous Sulfate 325 Mg Tablet) 325 mg PO TIDCM [facility] Last Admin: 06/08/20 08:17 Dose: 325 mg Documented by: Sodium Chloride () 500 mls @ 15 mls/hr IV PRN PRN PRN Reason: Blood Transfusion Sodium Chloride () 250 mls @ 15 mls/hr IV .[id number] PRN PRN Reason: Saline Flush Sodium Chloride () 250 mls @ 15 mls/hr IV .[id number] PRN PRN Reason: Additional IVPB Infusion Furosemide 500 mg/ N/A 50 mls @ 1 mls/hr CONT INF .Q50H [facility] Last Admin: 06/07/20 15:10 Dose: 10 mg/hr, 1 mls/hr Documented by: Levothyroxine Sodium (Levothyroxine 125 Mcg Tablet) 125 mcg PO DAILY@0600 [facility] Last Admin: 06/08/20 05:12 Dose: 125 mcg Documented by: Melatonin (Melatonin 3 Mg Tablet) 3 mg PO QHS PRN PRN PRN Reason: INSOMNIA Metoprolol Succinate (Metoprolol(Xl)Succ 50 Mg Tablet) 50 mg PO DAILY [facility] Last Admin: 06/08/20 08:19 Dose: 50 mg Documented by: Ondansetron HCl (Ondansetron 4 Mg/2 Ml Vial) 4 mg IV Q8H PRN PRN PRN Reason: NAUSEA/VOMITING Oxycodone HCl (Oxycodone 5 Mg Tablet) 5 mg PO Q4H PRN PRN PRN Reason: Pain Score 4-5 Potassium Chloride (Potassium Chloride 20 Meq Tablet) 20 meq PO BIDCM [facility] Last Admin: 06/08/20 08:17 Dose: 20 meq Documented by: Senna/Docusate Sodium (Senna/Docusate Sodium 1 Tablet) 2 tablet PO BID PRN PRN PRN Reason: Constipation Last Admin: 06/07/20 06:35 Dose: 2 tablet Documented by: Sodium Chloride (0.9% Saline Lock 10 Ml Syringe) 10 - 40 ml IV UD PRN PRN Reason: SALINE FLUSH Last Admin: 06/08/20 05:12 Dose: 20 ml Documented by: Tamsulosin HCl (Tamsulosin Hcl 0.4 Mg Capsule) 0.4 mg PO QHS [facility] Last Admin: 06/07/20 22:44 Dose: 0.4 mg Documented by: Throat Lozenges (Benzocaine/Menthol 1 Lozenge) 1 lozenge MUCOUS MEM Q2H PRN PRN PRN Reason: SORE THROAT Warfarin Sodium (Jantoven 2 Mg Tablet) 2 mg PO DAILY@1700 [facility] Last Admin: 06/07/20 16:41 Dose: 2 mg Documented by: Clinical Impression(s) from Imaging Studies Chest X-Ray 06/07/20 09:22 IMPRESSION: Improved bilateral pneumonia. Electronically Signed: Diego Ferraro MD at 13:50 EST Tel , Service support , Medical Necessity - Tobacco Use Smoking Status: Former smoker Tobacco Use: Non-smoker Assessment/Plan All Active Problems (Last Reviewed 05/12/20 @ 07:[address] 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 Continue monitoring off antibiotics 2. Continue aggressive diuresis. Potassium repletion as indicated 3. Aggressive rate control for A. fib 4. Add Acapella for pulmonary toileting 5. Wean oxygen as tolerated 6. Likely okay to discharge when able to ambulate on 6 L or less. Walking oximetry daily until discharged IMPRESSIONS: 1. Acute hypoxic respiratory insufficiency Unclear etiology. Patient does have a history of diastolic CHF, so this would be a possibility. Patient is also had decrease in H&H despite negative GI bleeding scan and lack of clinical indicators. Patient has been on antibiotics for several days with no improvement. Patient did have an initial leukocytosis, but no fevers have been noted. Patient with low requirements at rest is not consistent with diffuse alveolar hemorrhage. However, high oxygen requirements with exertion would be suggestive of pulmonary hypertension. Patient recently had a echocardiogram, so likely not necessary to repeat. However, continue diuresis would be indicated. Patient appears to be responding and tolerating diuresis well. Would recommend continuing daily walking oximetry's until able to ambulate on 6 L or less with acceptable saturations. Bronchiectasis is likely a confounder, but patient is not reporting signs or symptoms consistent with exacerbation at this time. 2. Paroxysmal A. fib/supratherapeutic INR/anemia Patient with significant drop in hemoglobin with a supratherapeutic INR. Consider acute reversal of anticoagulation with FFP. Defer to primary service. Patient would benefit from rate control given history of diastolic dysfunction. 3. Advanced age/CKD stage III/CAD/hypertension/hyperlipidemia/history of VTE/history of colon cancer/hypothyroidism/BPH Complicates care, management, recovery and prognosis. Would prefer a CTA of the chest for evaluation of mediastinal structures given significant tortuous trachea, but given renal function this is likely not a good initial test. Patient reports he has a history of lymphoma, but colon cancer is in the medical record. Patient could have decreased venous return from the left side leading to current imaging study. Conservative therapy with Briones catheter likely indicated until respiratory status can be stabilized. Inpatient E&M: 52364 Subs Hosp L2
[2020-06-08] MEDS: Jantoven 2 MG Tablet PO (16:39)
--- NOTE | 2020-06-08 19:23 | PCM.PROGNOTE ---
Patient Problems: Active and Suspected Problems (Last Reviewed 05/12/20 @ 07:[address] 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 Patient's renal functions have remained stable at this time, he continues to be maintained on a Lasix drip. I believe the patient will need to remain on this drip and be reevaluated tomorrow morning. Objective: General: Alert, Oriented x3, Cooperative HEENT: Atraumatic, PERRLA, EOMI, Normocephalic Neck: Supple, No JVD, Negative Carotid Bruits Lungs: Diminished, - - Faint scattered crackles Cardiovascular: - - Atrial fibrillation, heart rate and rhythm irregular Abdomen: Bowel Sounds Present, Soft, Non Tender, Non-Distended Extremities: No clubbing, No cyanosis, No edema, Capillary Refill Less than 3 Seconds Skin: No rashes, No breakdown Musculoskeletal: No Tenderness to Palpation of Joints or Extremities Neurological: Cranial nerves II-XII grossly intact, Neuro grossly intact Psych/Mental Status: Normal Affect, Appropriate - Physical Exam Vitals/I&O's: Vital Signs Temp Pulse Resp BP Pulse Ox 97.6 F L 100 16 107/54 L 90 06/08/20 14:30 06/08/20 16:05 06/08/20 15:30 06/08/20 14:30 06/08/20 15:50 Oxygen Flow Rate (L/min) [ 2 AMBULATION with Oxygen] Oxygen Flow Rate (L/min) [ 0 AMBULATING on Room Air] Oxygen Flow Rate (L/min) [At 0 REST on Room Air] Oxygen Flow Rate (L/min) 2 Oxygen Delivery Method Nasal Cannula Weight: 94.5 kg Body Mass Index (BMI) 30.1 Intake and Output for Last 24 Hours 01/10/2006/07/20 06/08/20 23:59 23:59 23:59 Intake Total 2079 / 2079 480 / 720 1300 / 1300 Output Total 3575 / 4175 2150 / 3350 3350 / 3350 Balance -1495 / -2095 -1670 / -2630 -2049 / -2049 Laboratory Results 06/08/20 05:24: PT 18.8 H, INR 1.6 06/08/20 05:24: WBC 7.4, RBC 3.29 L, Hgb 9.3 L, Hct 30.7 L, MCV 93.3, MCH 28.3, MCHC 30.3 L, RDW Std Deviation 54.2 H, RDW Coeff of Marcelino 15.8 H, Plt Count 271, MPV 9.7 06/08/20 05:24: Sodium 136, Potassium 3.5, Chloride 97 L, Carbon Dioxide 33.0 H, Anion Gap 6, BUN 25 H, Creatinine 1.14, Estim Creat Clear Calc 52.94, Est GFR (MDRD) Af Amer 79, Est GFR (MDRD) Non-Af 65, BUN/Creatinine Ratio 21.9 H, Glucose 85, Calcium 8.9, Total Bilirubin 1.10 H, AST 167 H, ALT 105 H, Alkaline Phosphatase 358 H, Total Protein 6.8, Albumin 2.2 L, Globulin 4.6 H, Albumin/Globulin Ratio 0.5 L Current Medications Acetaminophen (Acetaminophen 325 Mg Tablet) 650 mg PO Q6H PRN PRN PRN Reason: Pain Score 1-10/Temp > 100.7 F Albuterol Sulfate (Albuterol 2.5 Mg/3 Ml Vial.Neb.) 2.5 mg INHALATION Q2H PRN PRN PRN Reason: Dyspnea, wheezing Albuterol/Ipratropium (Ipratropium/Albuterol Sulfate 3 Ml Ampul.Neb) 3 ml INHALATION Q4HWA.RT [facility] Last Admin: 06/08/20 15:30 Dose: 3 ml Documented by: Amiodarone HCl (Amiodarone 200 Mg Tablet) 100 mg PO DAILY [facility] Last Admin: 06/08/20 08:18 Dose: 100 mg Documented by: Atorvastatin Calcium (Atorvastatin Calcium 80 Mg Tablet) 80 mg PO QHS [facility] Last Admin: 06/07/20 22:44 Dose: 80 mg Documented by: Famotidine (Famotidine 20 Mg Tablet) 20 mg PO DAILY [facility] Last Admin: 06/08/20 08:17 Dose: 20 mg Documented by: Ferrous Sulfate (Ferrous Sulfate 325 Mg Tablet) 325 mg PO TIDCM [facility] Last Admin: 06/08/20 16:39 Dose: 325 mg Documented by: Sodium Chloride () 500 mls @ 15 mls/hr IV PRN PRN PRN Reason: Blood Transfusion Sodium Chloride () 250 mls @ 15 mls/hr IV .[id number] PRN PRN Reason: Saline Flush Sodium Chloride () 250 mls @ 15 mls/hr IV .[id number] PRN PRN Reason: Additional IVPB Infusion Furosemide 500 mg/ N/A 50 mls @ 1 mls/hr CONT INF .Q50H [facility] Last Admin: 06/07/20 15:10 Dose: 10 mg/hr, 1 mls/hr Documented by: Levothyroxine Sodium (Levothyroxine 125 Mcg Tablet) 125 mcg PO DAILY@0600 [facility] Last Admin: 06/08/20 05:12 Dose: 125 mcg Documented by: Melatonin (Melatonin 3 Mg Tablet) 3 mg PO QHS PRN PRN PRN Reason: INSOMNIA Metoprolol Succinate (Metoprolol(Xl)Succ 50 Mg Tablet) 50 mg PO DAILY [facility] Last Admin: 06/08/20 08:19 Dose: 50 mg Documented by: Ondansetron HCl (Ondansetron 4 Mg/2 Ml Vial) 4 mg IV Q8H PRN PRN PRN Reason: NAUSEA/VOMITING Oxycodone HCl (Oxycodone 5 Mg Tablet) 5 mg PO Q4H PRN PRN PRN Reason: Pain Score 4-5 Potassium Chloride (Potassium Chloride 20 Meq Tablet) 20 meq PO BIDCM [facility] Last Admin: 06/08/20 16:39 Dose: 20 meq Documented by: Senna/Docusate Sodium (Senna/Docusate Sodium 1 Tablet) 2 tablet PO BID PRN PRN PRN Reason: Constipation Last Admin: 06/07/20 06:35 Dose: 2 tablet Documented by: Sodium Chloride (0.9% Saline Lock 10 Ml Syringe) 10 - 40 ml IV UD PRN PRN Reason: SALINE FLUSH Last Admin: 06/08/20 05:12 Dose: 20 ml Documented by: Tamsulosin HCl (Tamsulosin Hcl 0.4 Mg Capsule) 0.4 mg PO QHS [facility] Last Admin: 06/07/20 22:44 Dose: 0.4 mg Documented by: Throat Lozenges (Benzocaine/Menthol 1 Lozenge) 1 lozenge MUCOUS MEM Q2H PRN PRN PRN Reason: SORE THROAT Warfarin Sodium (Jantoven 2 Mg Tablet) 2 mg PO DAILY@1700 [facility] Last Admin: 06/08/20 16:39 Dose: 2 mg Documented by: Medical Necessity - Tobacco Use Smoking Status: Former smoker Tobacco Use: Non-smoker Assessment/Plan All Active Problems (Last Reviewed 05/12/20 @ 07:[address] 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 #2 acute hypoxic respiratory failure secondary to acute diastolic CHF and bronchiectasis-Lasix drip will continue at this time, patient is currently on room air at rest #3 atrial fibrillation with and patient is currently on Coumadin, his INR was subtherapeutic today, I will repeat the INR tomorrow #4 urinary retention secondary to BPH-patient will be discharged with an indwelling Briones #5 coronary artery disease #6 chronic kidney disease stage III #7 essential hypertension #8 hyperlipidemia Inpatient E&M: 29163 Subs Hosp L2
[2020-06-08] MEDS: Tamsulosin HCl 0.4 MG Capsule PO (21:24)
[2020-06-08] MEDS: Atorvastatin Calcium 80 MG Tablet PO (21:24)
[2020-06-08] MEDS: Furosemide 500 MG in Empty Viaflex 50 mL 1 EACH CONT INF (23:15)
[2020-06-09] VITALS (9 sets, daily range): BP systolic 83–110; BP diastolic 50–62; PULSE 68–102; RESP 18; TEMP 36–36.5; O2SAT 91–99
[2020-06-09] MEDS: Levothyroxine 125 MCG Tablet PO (05:16)
[2020-06-09 06:46] LABS: International Normalized Ratio 1.5; Prothrombin Time (Protime)PT. 17.8 SECONDS (11.7-14.9)
[2020-06-09 06:58] LABS: Anion Gap 7 (5-15); BUN 31 mg/dL (7-18); BUN/Creat Ratio 26.1 RATIO (10-20); Calcium,Total 9.8 mg/dL (8.5-10.1); Chloride 95 mmol/L (98-107); Creatinine, Serum 1.19 mg/dL (0.70-1.30); EST Glomerular Filtration Rate 62 mL/min (>60); Est Glom Filt Rate - Afr Amer 75 mL/min (>60); Estimated Creatinine Clearance 50.72 ml/min; Glucose 91 mg/dL (74-106); Potassium 3.9 mmol/L (3.5-5.1); Sodium Level 132 mmol/L (136-145)
[2020-06-09] MEDS: Ipratropium/Albuterol Sulfate 3 ML AMPUL.NEB INHALATION (06:59)
--- NOTE | 2020-06-09 09:02 | PN_ITS ---
Patient Problems: Active and Suspected Problems (Last Reviewed 05/12/20 @ 07:[address] Eligio Garcia MD) Atrial fibrillation with rapid ventricular response (Acute) Acute on chronic anemia (Acute) Weakness (Acute) Respiratory failure (Acute) Acute exacerbation of CHF (congestive heart failure) (Acute) CHF (congestive heart failure) (Acute) salvage determiner current use of anticoagulant (Acute) ST segment depression (Acute) Dyspnea on exertion (Acute) Abnormal stress test (Acute) Pre-operative cardiovascular examination (Acute) Personal history of colonic polyps (Acute) Anemia (Acute) Subjective: Patient did well overnight. Patient reports subjective improvement in overall condition. No chest pain is reported and patient was tolerating room air at rest this morning. Patient was going for a walking oximetry with therapy when I arrived was able to stand with assistance of a walker. - Physical Exam Vitals/I&O's: Vital Signs Temp Pulse Resp BP Pulse Ox 36.5 C L 92 18 108/56 L 94 06/09/20 03:30 06/09/20 07:42 06/09/20 07:01 06/09/20 03:30 06/09/20 07:01 Oxygen Flow Rate (L/min) [ 2 AMBULATION with Oxygen] Oxygen Flow Rate (L/min) [ 0 AMBULATING on Room Air] Oxygen Flow Rate (L/min) [At 0 REST on Room Air] Oxygen Flow Rate (L/min) 2 Oxygen Delivery Method Room Air Weight: 94.1 kg Body Mass Index (BMI) 30.1 Intake and Output for Last 24 Hours 06/07/20 06/08/20 06/09/20 23:59 23:59 23:59 Intake Total 480 / 720 1350 / 1350 50 / 50 Output Total 2150 / 3350 3350 / 4350 1825 / 1825 Balance -1670 / -2630 -2000 / -3000 -1775 / -1775 General: Alert, Oriented x3, Cooperative, No apparent distress, Well developed, Well nourished, - - Appears stated age HEENT: Atraumatic, PERRLA, EOMI, Normocephalic, - - Glasses in place. No scleral icterus or injection noted Oral: Moist Mucosa, No Gingival or Mucosal Lesions/ Ulcerations Neck: Supple, No JVD, No Nodes, Trachea Midline Lungs: No rhonchi, No wheeze, No rales, Diminished Cardiovascular: Normal S1, Normal S2, No murmurs, No rub noted, No Gallop, Tachycardic Abdomen: Bowel Sounds Present, Soft, Non Tender, Non-Distended Extremities: No clubbing, No cyanosis, No edema Skin: No rashes, No breakdown Musculoskeletal: No Tenderness to Palpation of Joints or Extremities Lymphatic: No Cervical, Supraclavicular, or Inguinal Adenopathy Neurological: Cranial nerves II-XII grossly intact, Neuro grossly intact, Motor Exam 5/5 strength throughout Psych/Mental Status: Alert and oriented to time, place, person, mood and affect Laboratory Results 06/09/20 06:15: PT 17.8 H, INR 1.5 06/09/20 06:15: Sodium 132 L, Potassium 3.9, Chloride 95 L, Carbon Dioxide 30.0, Anion Gap 7, BUN 31 H, Creatinine 1.19, Estim Creat Clear Calc 50.72, Est GFR (MDRD) Af Amer 75, Est GFR (MDRD) Non-Af 62, BUN/Creatinine Ratio 26.1 H, Glucose 91, Calcium 9.8 Current Medications Acetaminophen (Acetaminophen 325 Mg Tablet) 650 mg PO Q6H PRN PRN PRN Reason: Pain Score 1-10/Temp > 100.7 F Albuterol Sulfate (Albuterol 2.5 Mg/3 Ml Vial.Neb.) 2.5 mg INHALATION Q2H PRN PRN PRN Reason: Dyspnea, wheezing Albuterol/Ipratropium (Ipratropium/Albuterol Sulfate 3 Ml Ampul.Neb) 3 ml INHALATION Q4HWA.RT [facility] Last Admin: 06/09/20 06:59 Dose: 3 ml Documented by: Amiodarone HCl (Amiodarone 200 Mg Tablet) 100 mg PO DAILY [facility] Last Admin: 06/08/20 08:18 Dose: 100 mg Documented by: Atorvastatin Calcium (Atorvastatin Calcium 80 Mg Tablet) 80 mg PO QHS [facility] Last Admin: 06/08/20 21:24 Dose: 80 mg Documented by: Famotidine (Famotidine 20 Mg Tablet) 20 mg PO DAILY [facility] Last Admin: 06/08/20 08:17 Dose: 20 mg Documented by: Ferrous Sulfate (Ferrous Sulfate 325 Mg Tablet) 325 mg PO TIDCM [facility] Last Admin: 06/08/20 16:39 Dose: 325 mg Documented by: Sodium Chloride () 500 mls @ 15 mls/hr IV PRN PRN PRN Reason: Blood Transfusion Sodium Chloride () 250 mls @ 15 mls/hr IV .[id number] PRN PRN Reason: Saline Flush Sodium Chloride () 250 mls @ 15 mls/hr IV .[id number] PRN PRN Reason: Additional IVPB Infusion Furosemide 500 mg/ N/A 50 mls @ 1 mls/hr CONT INF .Q50H [facility] Last Admin: 06/08/20 23:15 Dose: 10 mg/hr, 1 mls/hr Documented by: Levothyroxine Sodium (Levothyroxine 125 Mcg Tablet) 125 mcg PO DAILY@0600 [facility] Last Admin: 06/09/20 05:16 Dose: 125 mcg Documented by: Melatonin (Melatonin 3 Mg Tablet) 3 mg PO QHS PRN PRN PRN Reason: INSOMNIA Metoprolol Succinate (Metoprolol(Xl)Succ 50 Mg Tablet) 50 mg PO DAILY [facility] Last Admin: 06/08/20 08:19 Dose: 50 mg Documented by: Ondansetron HCl (Ondansetron 4 Mg/2 Ml Vial) 4 mg IV Q8H PRN PRN PRN Reason: NAUSEA/VOMITING Oxycodone HCl (Oxycodone 5 Mg Tablet) 5 mg PO Q4H PRN PRN PRN Reason: Pain Score 4-5 Potassium Chloride (Potassium Chloride 20 Meq Tablet) 20 meq PO BIDCM [facility] Last Admin: 06/08/20 16:39 Dose: 20 meq Documented by: Senna/Docusate Sodium (Senna/Docusate Sodium 1 Tablet) 2 tablet PO BID PRN PRN PRN Reason: Constipation Last Admin: 06/07/20 06:35 Dose: 2 tablet Documented by: Sodium Chloride (0.9% Saline Lock 10 Ml Syringe) 10 - 40 ml IV UD PRN PRN Reason: SALINE FLUSH Last Admin: 06/08/20 05:12 Dose: 20 ml Documented by: Tamsulosin HCl (Tamsulosin Hcl 0.4 Mg Capsule) 0.4 mg PO QHS [facility] Last Admin: 06/08/20 21:24 Dose: 0.4 mg Documented by: Throat Lozenges (Benzocaine/Menthol 1 Lozenge) 1 lozenge MUCOUS MEM Q2H PRN PRN PRN Reason: SORE THROAT Warfarin Sodium (Jantoven 2 Mg Tablet) 2 mg PO DAILY@1700 [facility] Last Admin: 06/08/20 16:39 Dose: 2 mg Documented by: Medical Necessity - Tobacco Use Smoking Status: Former smoker Tobacco Use: Non-smoker Assessment/Plan All Active Problems (Last Reviewed 05/12/20 @ 07:[address] Eligio Garcia MD) Atrial fibrillation with rapid ventricular response (Acute) Acute on chronic anemia (Acute) Weakness (Acute) Respiratory failure (Acute) Acute exacerbation of CHF (congestive heart failure) (Acute) CHF (congestive heart failure) (Acute) salvage determiner current use of anticoagulant (Acute) ST segment depression (Acute) Dyspnea on exertion (Acute) Abnormal stress test (Acute) Pre-operative cardiovascular examination (Acute) Personal history of colonic polyps (Acute) Anemia (Acute) Blood clots in stool (Resolved) RECOMMENDATIONS: 1. Continue monitoring off antibiotics 2. Okay to discontinue Lasix drip 3. Aggressive rate control for A. fib 4. Add Acapella for pulmonary toileting 5. Wean oxygen as tolerated. Oxygen if indicated by walking oximetry 6. Follow-up with nurse practitioner 2 weeks after discharge for outpatient PFT IMPRESSIONS: 1. Acute hypoxic respiratory insufficiency Unclear etiology. Patient does have a history of diastolic CHF, so this would be a possibility. Patient is also had decrease in H&H despite negative GI bleeding scan and lack of clinical indicators. Patient has been on antibiotics for several days with no improvement. Patient did have an initial leukocytosis, but no fevers have been noted. Patient with low requirements at rest is not consistent with diffuse alveolar hemorrhage. However, high oxygen requirements with exertion would be suggestive of pulmonary hypertension. Patient has responded to aggressive diuresis. Discharged on appropriate oxygen would be recommended following walking oximetry today. Bronchiectasis is likely a confounder, but patient is not reporting signs or symptoms consistent with exacerbation at this time. 2. Paroxysmal A. fib/supratherapeutic INR/anemia Patient with significant drop in hemoglobin with a supratherapeutic INR. Okay to reinitiate baseline warfarin. Defer to primary service. Patient would benefit from rate control given history of diastolic dysfunction. 3. Advanced age/CKD stage III/CAD/hypertension/hyperlipidemia/history of VTE/history of colon cancer/hypothyroidism/BPH Complicates care, management, recovery and prognosis. Would prefer a CTA of the chest for evaluation of mediastinal structures given significant tortuous trachea, but given renal function this is likely not a good initial test. Patient reports he has a history of lymphoma, but colon cancer is in the medical record. Patient could have decreased venous return from the left side leading to current imaging study. Conservative therapy with Briones catheter likely indicated until respiratory status can be stabilized. Inpatient E&M: 30383 Subs Hosp L2
--- NOTE | 2020-06-09 09:05 | DCINST_ITS ---
- Discharge Diagnoses Current Active Problems: Current Active and Chronic Problems (Last Reviewed 05/12/20 @ 07:[address] Eligio Garcia MD) Urinary retention (Chronic) Atrial fibrillation with rapid ventricular response (Acute) Acute on chronic anemia (Acute) Chronic renal insufficiency (Chronic) Weakness (Acute) Respiratory failure (Acute) Acute exacerbation of CHF (congestive heart failure) (Acute) CHF (congestive heart failure) (Acute) On amiodarone therapy (Chronic) Hypothyroidism (acquired) (Chronic) Paroxysmal atrial fibrillation (Chronic) History of cardioversion (Chronic 05/31/19) Successful on Amiodarone 05/31/2019 @ [facility] per [facility] Atherosclerosis of coronary artery of [place] heart without angina pectoris (Chronic) NEFF to LAD, SVG to Lateral CX, and SVG to PDA 12/25/[address] 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 Paulino Flores, [facility] long term acute care registered nurse current use of anticoagulant (Acute) History of right and left heart catheterization (Chronic 12/02/18) Triple vessel CAD of the LM, LAD, OMs, RCA. Normal LV size, wall motion,and systolic function Perserved Left Ventricular systolic function with normal EDP LVEF: by LV gram 65 % The patient has normal pulmonary hemodynamics. 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 Carotid artery disease (Chronic) ON PLAVIX FOR THIS FROM DR. GIRMA BOOGIE: occluded proximal right carotid and right vertebral with collaterals Aortic stenosis (Chronic) ST segment depression (Acute) Dyspnea on exertion (Acute) Abnormal stress test (Acute) New onset atrial fibrillation (Chronic) Pre-operative cardiovascular examination (Acute) Hypertension (Chronic) Hyperlipidemia (Chronic) Personal history of colonic polyps (Acute) Anemia (Acute) Prostatic hypertrophy (Chronic) Acid reflux (Chronic) COPD (chronic obstructive pulmonary disease) (Chronic) Colon cancer (Chronic) You will use the following diet at home:: No restrictions Your food should be the consistency of: Regular Your liquids should be the consistency of: Regular/Thin Discharge Activity: Return to Normal Activity Weight Bearing Status: Full weight bearing Additional Instructions: If you develop a temperature, call your family physician Allergies/Adverse Reactions: Allergies adhesive tape Allergy (Intermediate, Verified 06/03/20 04:01) dermatitis Medications to take at Discharge atorvastatin 80 mg tablet 80 mg PO QDAY 07/14/17 coenzyme Q10 100 mg capsule 100 mg PO QDAY 07/14/17 Tamsulosin HCl [Flomax] 0.4 mg PO QHS 11/04/18 aspirin 81 mg tablet,delayed release 81 mg PO DAILY 11/20/18 acetaminophen 325 mg capsule 650 mg PO Q6H PRN cap 01/04/19 levothyroxine 125 mcg tablet 125 mcg PO DAILY 01/19/20 omega-3s 300 [id number]-teu-other [id number] oil 1,000 mg capsule 1 cap PO DAILY ea 01/19/20 ascorbic acid (vitamin C) 500 mg tablet 500 mg PO BID 02/15/20 ferrous sulfate 325 mg (65 mg iron) tablet 325 mg PO BID 02/15/20 metoprolol succinate 50 mg tablet,extended release 24 hr 50 mg PO DAILY #90 tab 03/10/20 Amiodarone HCl 100 mg PO DAILY 04/24/20 Vitamin B Complex [B Complex] 1 ea PO DAILY 05/04/20 Famotidine [Pepcid] 40 mg PO DAILY #30 tab 06/09/20 Furosemide 40 mg PO BID #60 tab 06/09/20 Potassium Chloride [K-Dur] 20 meq PO BIDCM #60 tab 06/09/20 Warfarin Sodium 2 mg PO DAILY #30 tab 06/09/20 Warfarin [Coumadin] 2 mg PO DAILY@1700 tab 06/09/20 The following prescriptions were given: Furosemide 40 mg PO BID #60 tab Transmission Status: Received by [facility] Potassium Chloride [K-Dur] 20 meq PO BIDCM #60 tab Transmission Status: Received by [facility] Famotidine [Pepcid] 40 mg PO DAILY #30 tab Transmission Status: Received by [facility] Warfarin Sodium 2 mg PO DAILY #30 tab Transmission Status: Received by [facility] Primary Care Physician: Girma Boogie MD [Primary Care Provider] - Please follow up with your Primary Care Physician in: in one week Test Results: Test results from this visit will be discussed in further detail at your follow- up appointment, if applicable. Please Follow Up With: Wilner Law MD When: 2 weeks-call for appointment Please Follow Up With: Eligio Garcia MD When: to schedule surgery
[2020-06-09] MEDS: Famotidine 20 MG Tablet PO (09:20)
[2020-06-09] MEDS: Ferrous Sulfate 325 MG Tablet PO ×2 (09:20→10:51)
--- NOTE | 2020-06-09 10:28 | CASEMGMT ---
Per [facility], pt does not qualify for home oxygen at rest or with ambulation at this time. This RN CM to room to discuss discharge plan with pt at this time. Pt states no need for any HHC or OP therapy/SN at this time. Pt normally self caths every 4 hours but will now be going home with an indwelling barreto/leg bag. Pt states has been sent home with barreto in the past and took care of on his own at that time. Pt was scheduled for a procedure with Dr. Garcia today but that has been cancelled at this time. Pt encouraged to get ahold of Dr. Garcia regarding procedure and barreto, voices understanding. Pt voice no further questions/concerns/needs at this time. [facility] CM
[2020-06-09] MEDS: Metoprolol(XL)Succ 50 MG Tablet PO (10:50)
[2020-06-09] MEDS: Amiodarone 200 MG Tablet 100 MG PO (10:50)
--- NOTE | 2020-06-09 11:50 | CASEMGMT ---
SW completed a Palliative screening tool for patient. He scored a 2. Generally when a patient scores 4 or more a Palliative consult should be considered. SW did not talk with patient about Palliative Care. Meghna LAY
--- NOTE | 2020-06-11 08:37 | DS.PCM_ITS ---
Discharge Date and Diagnosis - Problem List Patient Problems: Active and Suspected Problems (Last Reviewed 05/12/20 @ 07:[address] Eligio Garcia MD) Atrial fibrillation with rapid ventricular response (Acute) Acute on chronic anemia (Acute) Weakness (Acute) Respiratory failure (Acute) Acute exacerbation of CHF (congestive heart failure) (Acute) CHF (congestive heart failure) (Acute) [facility] current use of anticoagulant (Acute) ST segment depression (Acute) Dyspnea on exertion (Acute) Abnormal stress test (Acute) Pre-operative cardiovascular examination (Acute) Personal history of colonic polyps (Acute) Anemia (Acute) Date of Admission: 06/03/20 Date of Discharge: 06/09/20 - Primary Discharge Diagnosis Acute Problems: Active Problems (Last Reviewed 05/12/20 @ 07:[address] Eligio Garcia MD) #1 acute on chronic anemia-etiology unclear #2 acute hypoxic respiratory failure secondary to acute diastolic CHF and bronchiectasis #3 atrial fibrillation #4 urinary retention secondary to BPH #5 coronary artery disease #6 chronic kidney disease stage III #7 essential hypertension #8 hyperlipidemia #9 bronchiectasis - Secondary Discharge Diagnosis Chronic Problems: Chronic Problems (Last Reviewed 05/12/20 @ 07:[address] Eligio Garcia MD) Urinary retention (Chronic) Chronic renal insufficiency (Chronic) On amiodarone therapy (Chronic) Hypothyroidism (acquired) (Chronic) Paroxysmal atrial fibrillation (Chronic) History of cardioversion (Chronic 05/31/19) Successful on Amiodarone 05/31/2019 @ [facility] per [facility]N Atherosclerosis of coronary artery of [place] heart without angina pectoris (Chronic) NEFF to LAD, SVG to Lateral CX, and SVG to PDA 12/25/[address] 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 Paulino Flores, [facility] [place] History of right and left heart catheterization (Chronic 12/02/18) Triple vessel CAD of the LM, LAD, OMs, RCA. Normal LV size, wall motion,and systolic function Perserved Left Ventricular systolic function with normal EDP LVEF: by LV gram 65 % The patient has normal pulmonary hemodynamics. 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 Carotid artery disease (Chronic) ON PLAVIX FOR THIS FROM DR. GIRMA BOOGIE: occluded proximal right carotid and right vertebral with collaterals Aortic stenosis (Chronic) New onset atrial fibrillation (Chronic) Hypertension (Chronic) Hyperlipidemia (Chronic) Prostatic hypertrophy (Chronic) Acid reflux (Chronic) COPD (chronic obstructive pulmonary disease) (Chronic) Colon cancer (Chronic) Hospital Course and Treatment Operations: None Procedures: Blood transfusion Summary of Care Provided: The patient is a 84 year old M who was seen in the emergency room at [facility] after being brought in by squad after a fall at home with generalized weakness. Patient stated he did not injure himself he lowered himself to the ground, patient was not able to get up however and EMS was called. Patient was found to be in atrial fibrillation with RVR, he was known to have a history of atrial fibrillation. EKG on arrival to the emergency room showed a ventricular rate of 119, he was given a dose of IV Cardizem to lower his rate, he was placed on oxygen as he was hypoxic on arrival-patient use no oxygen at home. Mild pulmonary edema was noted on the chest x-ray, hemoglobin was less than 7 and he was typed and crossed for 2 units of blood for transfusion. Patient's INR was supratherapeutic. Patient was admitted to PCU, he was placed on IV Lasix and labs were monitored. Patient remained on supplemental oxygen was seen in consultation by pulmonary medicine, it was felt that the patient primarily had diastolic congestive heart failure, recent echocardiogram done earlier in 2019 showed a preserved ejection fraction. Patient underwent a bleeding scan due to his anemia, this did not show any active bleeding. Patient was given blood transfusions during the time of his hospitalization. Patient responded slowly to Lasix, he remained in atrial fibrillation during his hospital stay. Patient responded to an IV Lasix drip and was able to come off oxygen at the time of discharge. On 06/09/2020, patient was seen and examined:General: Alert, Oriented x3, Cooperative HEENT: Atraumatic, PERRLA, EOMI, Normocephalic Neck: Supple, No JVD, Negative Carotid Bruits Lungs: Diminished, - - Faint scattered crackles Cardiovascular: - - Atrial fibrillation, heart rate and rhythm irregular Abdomen: Bowel Sounds Present, Soft, Non Tender, Non-Distended Extremities: No clubbing, No cyanosis, No edema, Capillary Refill Less than 3 Seconds Skin: No rashes, No breakdown Musculoskeletal: No Tenderness to Palpation of Joints or Extremities Neurological: Cranial nerves II-XII grossly intact, Neuro grossly intact Psych/Mental Status: Normal Affect, Appropriate Patient was discharged home in stable condition on 06/09/2020. Patient Problems: Active and Suspected Problems (Last Reviewed 05/12/20 @ 07:[address] Eligio Garcia MD) Atrial fibrillation with rapid ventricular response (Acute) Acute on chronic anemia (Acute) Weakness (Acute) Respiratory failure (Acute) Acute exacerbation of CHF (congestive heart failure) (Acute) CHF (congestive heart failure) (Acute) [facility] current use of anticoagulant (Acute) ST segment depression (Acute) Dyspnea on exertion (Acute) Abnormal stress test (Acute) Pre-operative cardiovascular examination (Acute) Personal history of colonic polyps (Acute) Anemia (Acute) - Physical Exam Vitals/I&O's: Vital Signs Temp Pulse Resp BP Pulse Ox 97.1 F L 91 18 110/62 98 06/09/20 10:48 06/09/20 10:50 06/09/20 10:48 06/09/20 10:50 06/09/20 10:48 Oxygen Flow Rate (L/min) [ 2 AMBULATION with Oxygen] Oxygen Flow Rate (L/min) [ 0 AMBULATING on Room Air] Oxygen Flow Rate (L/min) [At 0 REST on Room Air] Oxygen Flow Rate (L/min) 97 Oxygen Delivery Method Room Air Weight: 94.1 kg Body Mass Index (BMI) 30.1 Intake and Output for Last 24 Hours 06/09/20 06/10/20 06/11/20 23:59 23:59 23:59 Intake Total 100 / 100 Output Total 2325 / 2325 Balance -2225 / -2225 Discharge Activity: Return to Normal Activity Weight Bearing Status: Full weight bearing Home Medications: Medications to take at Discharge atorvastatin 80 mg tablet 80 mg PO QDAY 07/14/17 coenzyme Q10 100 mg capsule 100 mg PO QDAY 07/14/17 Tamsulosin HCl [Flomax] 0.4 mg PO QHS 11/04/18 aspirin 81 mg tablet,delayed release 81 mg PO DAILY 11/20/18 acetaminophen 325 mg capsule 650 mg PO Q6H PRN cap 01/04/19 levothyroxine 125 mcg tablet 125 mcg PO DAILY 01/19/20 omega-3s 300 yn-myz-dpx-other lfrpg2l-bayd oil 1,000 mg capsule 1 cap PO DAILY ea 01/19/20 ascorbic acid (vitamin C) 500 mg tablet 500 mg PO BID 02/15/20 ferrous sulfate 325 mg (65 mg iron) tablet 325 mg PO BID 02/15/20 metoprolol succinate 50 mg tablet,extended release 24 hr 50 mg PO DAILY #90 tab 03/10/20 Amiodarone HCl 100 mg PO DAILY 04/24/20 Vitamin B Complex [B Complex] 1 ea PO DAILY 05/04/20 Famotidine [Pepcid] 40 mg PO DAILY #30 tab 06/09/20 Furosemide 40 mg PO BID #60 tab 06/09/20 Potassium Chloride [K-Dur] 20 meq PO BIDCM #60 tab 06/09/20 Warfarin Sodium 2 mg PO DAILY #30 tab 06/09/20 Warfarin [Coumadin] 2 mg PO DAILY@1700 tab 06/09/20 Following Prescriptions Were Given to Patient: Furosemide 40 mg PO BID #60 tab Transmission Status: Received by [facility] Potassium Chloride [K-Dur] 20 meq PO BIDCM #60 tab Transmission Status: Received by [facility] Famotidine [Pepcid] 40 mg PO DAILY #30 tab Transmission Status: Received by [facility] Warfarin Sodium 2 mg PO DAILY #30 tab Transmission Status: Received by [facility] Primary Care Physician: Girma Boogie MD [Primary Care Provider] - Please follow up with your Primary Care Physician in: in one week Please Follow Up With: Trinidad Castanon NP, DIRECT MAIL MANAGER-C When: 2 weeks-call for appointment Please Follow Up With: Eligio Garcia MD When: to schedule surgery Please Follow Up With: Girma Boogie MD Disposition: Home Minutes spent on discharge:: 32 Patient Condition:: Stable Medical Necessity - Tobacco Use Smoking Status: Former smoker Tobacco Use: Non-smoker Meaningful Use Info Meaningful Use Diagnoses (Choose all that apply): CHF - CHF NILSON/ARB ordered at discharge?: No Reason NILSON/ARB not ordered?: Allergy - Patient had preserved ejection fraction and use of an NILSON inhibitor/ARB was not indicated Documented LVEF (%): 60 Inpatient E&M: 47600 Disch Hosp
--- NOTE | 2020-06-12 14:56 | CASEMGMT ---
ARTI HARRIS Discharge F/U Phone Call LACE: 12 Strata: 3 Discharge date: 06/09/20 Call date: 06/12/20 Call time: [id number] Admission dx: Acute on chronic anemia, CHF exac, PAF w/ RVR Pt's son answered phone and states he is getting ready to take pt to Dr. Garcia at this time for 1530 appt. Per son, no questions regarding discharge instructions/medications at this time. Son states pt 'seems to be doing ok' since discharge. Son states no further questions/concerns/needs at this time. [place] ARTI HARRIS
== END 2020-06-09 11:36 | disposition home or self-care (01) | DRG 811 ==
LOC: ED 05:46 → PCU 06:25
PROVIDERS: Internal Medicine; Nurse Practitioner Family; Admitting Provider Family Medicine; Emergency Provider Emergency Medicine; PCP Family Medicine; Visit Provider Internal Medicine
DX: D64.9 Anemia, unspecified (principal); J96.01 Acute respiratory failure with hypoxia; I50.33 Acute on chronic diastolic (congestive) heart failure; I13.0 Hypertensive heart and chronic kidney disease with heart failure and stage 1 through stage 4 chronic kidney disease, or unspecified chronic kidney disease; N18.30 Chronic kidney disease, stage 3 unspecified; I48.0 Paroxysmal atrial fibrillation; J43.9 Emphysema, unspecified; J47.9 Bronchiectasis, uncomplicated; I25.10 Atherosclerotic heart disease of native coronary artery without angina pectoris; E78.5 Hyperlipidemia, unspecified; E03.9 Hypothyroidism, unspecified; N40.1 Benign prostatic hyperplasia with lower urinary tract symptoms; R33.8 Other retention of urine; R79.1 Abnormal coagulation profile; K21.9 Gastro-esophageal reflux disease without esophagitis; Z20.822 Contact with and (suspected) exposure to COVID-19; E66.9 Obesity, unspecified; Z68.30 Body mass index [BMI] 30.0-30.9, adult; Z79.01 Long term (current) use of anticoagulants; Z79.82 Long term (current) use of aspirin; Z79.890 Hormone replacement therapy; Z79.899 Other long term (current) drug therapy; Z87.19 Personal history of other diseases of the digestive system; Z86.718 Personal history of other venous thrombosis and embolism; Z85.038 Personal history of other malignant neoplasm of large intestine; Z85.72 Personal history of non-Hodgkin lymphomas; Z92.21 Personal history of antineoplastic chemotherapy; Z87.891 Personal history of nicotine dependence; Z90.49 Acquired absence of other specified parts of digestive tract; Z95.2 Presence of prosthetic heart valve; Z95.1 Presence of aortocoronary bypass graft
CPT/HCPCS: 36415; 71045; 71046; 71270; 76705; 78278; 80048; 80053; 80061; 80076; 82274; 83735; 83880; 84439; 84443; 84484; 85014; 85018; 85025; 85027; 85610; 86850; 86900; 86901; 86920; 86922; 87426; 87449; 87635; 93005; 94640; 94668; 94762; 97110; 97116; 97162; 97165; 97530; 97535; 99285; A9560; J7030; J7040; P9016; Q9967; A4216; J0696; J1940; U0002

== ENCOUNTER → 2020-06-20 16:39 | Outpatient (CLI) | payer MEDICARE, OTHER, SELFPAY ==
[2020-06-03 07:35] VITALS: BMI 30.1
[2020-06-20 18:01] LABS: Absolute Lymphocyte Count 1.28 X10^3/uL (0.83-4.51); Absolute Neutrophil Count 4.8 X10^3/uL (2.0-7.7); Basophil# 0.04 X10^3/uL; Basophil% 0.6 % (0-1); Eosinophil# 0.41 X10^3/uL; Eosinophils% 5.7 % (0-5); Hematocrit 31.8 % (40-54); Hemoglobin 9.3 g/dL (13.0-16.5); Lymphocyte # 1.28 X10^3/ul (4.0); Lymphocyte % 17.8 % (19-41); Mean Corp Hgb Conc 29.2 g/dL (32-36); Mean Corpuscular Hgb 27.8 pg (27.0-32.0); Mean Corpuscular Volume 95.2 fL (80-94); Mean Platelet Vol. 10.6 fl (6.2-12.0); Monocyte# 0.68 X10^3/uL; Monocyte% 9.4 % (0-10); NRBC Flagged by Analyzer 0 % (0-5); Neutrophil # 4.77 X10^3/uL (2.7-7.7); Neutrophil % 66.2 % (47-70); Platelet Count 261 K/mm3 (150-450); RBC Distribution Width CV 16.2 % (11.6-14.6); RBC Distribution Width SD 56.5 fl (35.1-43.9); Red Blood Count 3.34 M/mm3 (4.6-6.2); White Blood Count 7.2 K/mm3 (4.4-11.0)
[2020-06-20 18:25] LABS: ALB/GLOB Ratio 0.7 RATIO (0.9-2.4); AST(SGOT) 37 U/L (15-37); Alanine Aminotransfer ALT/SGPT 39 U/L (16-61); Albumin, Serum 2.8 g/dL (3.2-5.0); Alkaline Phosphatase 189 U/L (45-117); Anion Gap 6 (5-15); BUN 30 mg/dL (7-18); BUN/Creat Ratio 19.6 RATIO (10-20); Calcium,Total 9.1 mg/dL (8.5-10.1); Chloride 101 mmol/L (98-107); Creatinine, Serum 1.53 mg/dL (0.70-1.30); EST Glomerular Filtration Rate 46 mL/min (>60); Est Glom Filt Rate - Afr Amer 56 mL/min (>60); Ferritin 59 ng/mL (26-388); Globulin 4.1 g/dL (2.2-4.2); Glucose 69 mg/dL (74-106); Protein, Total 6.9 g/dL (6.4-8.2); Sodium Level 133 mmol/L (136-145)
== END ==
PROVIDERS: PCP Family Medicine; Referring Provider Family Medicine; Visit Provider Family Medicine
DX: I10 Essential (primary) hypertension (principal); I48.91 Unspecified atrial fibrillation; D64.9 Anemia, unspecified
CPT/HCPCS: 36415; 80053; 82728; 85025

== ENCOUNTER 2020-06-28 16:36 | Outpatient (RCR) | payer MEDICARE, OTHER, SELFPAY ==
[2020-01-19 11:17] VITALS: BMI 34.0
[2020-06-28 15:44] VITALS: BMI 29.8
[2020-06-28 17:29] LABS: Absolute Lymphocyte Count 0.92 X10^3/uL (0.83-4.51); Absolute Neutrophil Count 4.1 X10^3/uL (2.0-7.7); Basophil# 0.04 X10^3/uL; Basophil% 0.7 % (0-1); Eosinophils% 6.7 % (0-5); Hemoglobin 9.2 g/dL (13.0-16.5); Lymphocyte # 0.92 X10^3/ul (4.0); Lymphocyte % 15.4 % (19-41); Mean Corp Hgb Conc 29.7 g/dL (32-36); Mean Corpuscular Hgb 28.6 pg (27.0-32.0); Mean Corpuscular Volume 96.3 fL (80-94); Mean Platelet Vol. 11.1 fl (6.2-12.0); Monocyte# 0.53 X10^3/uL; Monocyte% 8.9 % (0-10); NRBC Flagged by Analyzer 0 % (0-5); Neutrophil # 4.05 X10^3/uL (2.7-7.7); Neutrophil % 67.8 % (47-70); Platelet Count 174 K/mm3 (150-450); RBC Distribution Width CV 17.1 % (11.6-14.6); RBC Distribution Width SD 59.9 fl (35.1-43.9); Red Blood Count 3.22 M/mm3 (4.6-6.2)
[2020-06-28 17:58] LABS: ALB/GLOB Ratio 0.7 RATIO (0.9-2.4); AST(SGOT) 35 U/L (15-37); Alanine Aminotransfer ALT/SGPT 27 U/L (16-61); Albumin, Serum 2.8 g/dL (3.2-5.0); Alkaline Phosphatase 175 U/L (45-117); Anion Gap 6 (5-15); BUN 31 mg/dL (7-18); Calcium,Total 8.9 mg/dL (8.5-10.1); Chloride 104 mmol/L (98-107); Creatinine, Serum 1.82 mg/dL (0.70-1.30); EST Glomerular Filtration Rate 38 mL/min (>60); Est Glom Filt Rate - Afr Amer 46 mL/min (>60); Glucose 85 mg/dL (74-106); Potassium 4.3 mmol/L (3.5-5.1); Protein, Total 6.8 g/dL (6.4-8.2); Sodium Level 138 mmol/L (136-145); T4 Free Direct 1.41 ng/dL (0.76-1.46); Thyroid Stim Hormone (TSH) 9.04 uIU/mL (0.358-3.74)
== END 2020-06-28 18:00 | disposition home or self-care (01) ==
LOC: LAB 16:36
PROVIDERS: Nurse Practitioner Family; Family Provider Family Medicine; PCP Family Medicine; Referring Provider Specialist; Visit Provider Specialist
DX: I48.0 Paroxysmal atrial fibrillation (principal); Z79.01 Long term (current) use of anticoagulants; R79.89 Other specified abnormal findings of blood chemistry
CPT/HCPCS: 36415; 80053; 82248; 84439; 84443; 85025

== ENCOUNTER 2020-07-28 06:31 | Day surgery (SDC) | payer MEDICARE, OTHER, SELFPAY ==
[2020-07-28] VITALS (9 sets, daily range): BP systolic 97–131; BP diastolic 52–80; PULSE 73–93; RESP 16–18; TEMP 35.7–36.6; O2SAT 93–100; BMI 30.4
--- NOTE | 2020-07-28 | PROS_PTH ---
PATIENT: JOSE CHAWLA [place] [facility] [id number] AGE/SX: 85/M ROOM: RE07/28/[address]: Dr. Eligio Garcia MD : [id number] BED: DIS: 07/29/2020 SPEC #: [id number] RECD: 07/28/20 12:35 STATUS: SHO REYamileth #: [id number] LORIN: 07/28/20 00:[address]: Eligio Garcia DEPT: SURGICAL PATHOLOGY RECD BY: Mando Calderón ENTERED: 07/28/20 12:35 SP TYPE: TURP OTHR DR: Dr. Kevin Boogie MD Tissues: Prostate, NOS Procedures: Surgery Specimen Level IV HEADER OPERATION: Cysto, TUR prostate, Olympus PRE-OP DIAGNOSIS: BPH with obstruction TISSUE SUBMITTED: Prostate tissue MICROSCOPIC DIAGNOSIS Prostate tissue, TUR: Benign prostatic hyperplasia, predominantly stromal type. Focal chronic inflammation and basal cell hyperplasia. SJ:donaldo 07/31/2020 MICROSCOPIC DESCRIPTION Slides are reviewed. GROSS DESCRIPTION Received is one container labeled with the patient's name and designated prostate tissue. The specimen consists of multiple irregular fragments of pink-abker, rubbery, soft tissue that in aggregate weigh 17.4 gm and measure in aggregate 6 x 6 x 2 cm. Hydrometer Tester tissue is submitted in ten cassettes. / NUHA:donaldo 07/28/20 TC:5 CPT: 14322
[2020-07-28 06:51] LABS: Prothrombin Time Fingerstick 14.6 SEC (11.9-14.4)
[2020-07-28] MEDS: Lactated Ringers 1,000 ML 100 ML IV (07:30)
--- NOTE | 2020-07-28 08:21 | HP.PCM_ITS ---
History of Present Illness Date of Admission: 07/28/20 Chief Complaint: BPH with obstruction The patient is a 85 year old male with history of BPH with obstruction he is on self intermittent catheterization we did urodynamic studies to demonstrate good bladder function he wants to proceed with a TURP. Past Medical History Past Medical History (Chronic Problems): Chronic Problems (Last Reviewed 06/28/20 @ 15:55 by Keiko Serrano) Urinary retention (Chronic) Chronic renal insufficiency (Chronic) On amiodarone therapy (Chronic) Hypothyroidism (acquired) (Chronic) Paroxysmal atrial fibrillation (Chronic) History of cardioversion (Chronic 05/31/19) Successful on Amiodarone 05/31/2019 @ [facility] per [facility] Atherosclerosis of coronary artery of [place] heart without angina pectoris (Chronic) NEFF to LAD, SVG to Lateral CX, and SVG to PDA 12/25/[address] 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 Paulino Flores, [facility] [place] History of right and left heart catheterization (Chronic 12/02/18) Triple vessel CAD of the LM, LAD, OMs, RCA. Normal LV size, wall motion,and systolic function Perserved Left Ventricular systolic function with normal EDP LVEF: by LV gram 65 % The patient has normal pulmonary hemodynamics. 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 Carotid artery disease (Chronic) ON PLAVIX FOR THIS FROM DR. GIRMA FISHMAN: occluded proximal right carotid and right vertebral with collaterals Aortic stenosis (Chronic) New onset atrial fibrillation (Chronic) Hypertension (Chronic) Hyperlipidemia (Chronic) Prostatic hypertrophy (Chronic) Acid reflux (Chronic) COPD (chronic obstructive pulmonary disease) (Chronic) Colon cancer (Chronic) Medical History: Medical History (Last Reviewed 07/28/20 @ 08:[address] Eligio Garcia MD) On amiodarone therapy (Chronic) Z79.899 Hypothyroidism (acquired) (Chronic) E03.9 Paroxysmal atrial fibrillation (Chronic) I48.0 Atherosclerosis of coronary artery of [place] heart without angina pectoris (Chronic) I25.10 NEFF to LAD, SVG to Lateral CX, and SVG to PDA 12/25/[address] Paulino Flores, [facility] [place] Carotid artery disease (Chronic) I77.9 ON PLAVIX FOR THIS FROM DR. GIRMA FISHMAN: occluded proximal right carotid and right vertebral with collaterals Aortic stenosis (Chronic) I35.0 New onset atrial fibrillation (Chronic) I48.91 Pre-operative cardiovascular examination (Acute) Z01.810 Hypertension (Chronic) I10 Hyperlipidemia (Chronic) E78.5 Anemia (Acute) D64.9 Prostatic hypertrophy (Chronic) N40.0 Acid reflux (Chronic) K21.9 COPD (chronic obstructive pulmonary disease) (Chronic) J44.9 Colon cancer (Chronic) C18.9 Abnormality of gait R26.9 Allergic rhinitis J30.9 Obesity E66.9 Blood clots in stool (Resolved) K92.1 Allergies adhesive tape Allergy (Intermediate, Verified 07/28/20 07:10) dermatitis Home Medications: Ambulatory Orders Medication Instructions Recorded atorvastatin 80 mg tablet 80 mg PO QDAY 07/14/17 coenzyme Q10 100 mg capsule 100 mg PO QDAY 07/14/17 Tamsulosin HCl [Flomax] 0.4 mg PO QHS 11/04/18 aspirin 81 mg tablet,delayed 81 mg PO DAILY 11/20/18 release acetaminophen 325 mg capsule 650 mg PO Q6H PRN cap 01/04/19 omega-3s 300 nt-zox-nju-other 1 cap PO DAILY ea 01/19/20 [id number]-lgtb oil 1,000 mg capsule ascorbic acid (vitamin C) 500 mg 500 mg PO BID 02/15/20 tablet ferrous sulfate 325 mg (65 mg 325 mg PO BID 02/15/20 iron) tablet metoprolol succinate 50 mg 50 mg PO DAILY #90 tab 03/10/20 tablet,extended release 24 hr Vitamin B Complex [B Complex] 1 ea PO DAILY 05/04/20 Furosemide 40 mg PO BID #60 tab 06/09/20 levothyroxine 112 mcg tablet 112 mcg PO DAILY 06/29/20 Cholecalciferol (Vitamin D3) 50 mcg PO DAILY 07/21/20 [Vitamin D3] Warfarin Sodium 2 mg PO SUWESA 07/21/20 Warfarin [Coumadin (PBKC)] 5 mg PO MOTUTHFR 07/21/20 Surgical History: Surgical History (Last Reviewed 07/28/20 @ 08:[address] Eligio Garcia MD) History of cardioversion (Chronic) Onset Date: 05/31/19 Z98.890 Successful on Amiodarone 05/31/2019 @ [facility] per [facility] Status post mitral valve repair (Chronic) Onset Date: 12/25/18 Z98.890 Mitral Valve repair with Moreno band #29 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 Paulino Flores, [facility] History of right and left heart catheterization (Chronic) Onset Date: 12/02/18 Z98.890 Triple vessel CAD of the LM, LAD, OMs, RCA. Normal LV size, wall motion,and systolic function Perserved Left Ventricular systolic function with normal EDP LVEF: by LV gram 65 % The patient has normal pulmonary hemodynamics. 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 History of colectomy Z98.890, Z90.49 for colon cancer History of colonoscopy Onset Date: 09/30/17 Z98.890 Surgical History: colectomy, coronary bypass surgery - mitral valve repair, - - Prior cardioversion, mitral valve repair with Perry band, CABG x3, partial colectomy secondary to colon cancer history Psychiatric History: No pertinent psych hx Smoking Status: Former smoker - *Family History Maternal Family History: Family History (Last Reviewed 07/28/20 @ 08:[address] Eligio Garcia MD) Father Pneumonia Mother CAD (coronary artery disease) Arthritis Sister Rheumatoid arthritis Oral cancer Sister Arthritis Sister No problems noted. Sister No problems noted. History Items: Heart Disease, - Paternal Family History: Family History (Last Reviewed 07/28/20 @ 08:[address] Eligio Garcia MD) Father Pneumonia Mother CAD (coronary artery disease) Arthritis Sister Rheumatoid arthritis Oral cancer Sister Arthritis Sister No problems noted. Sister No problems noted. History Items: Hypertension, - Review of Systems Constitutional: Denies: Chills, Fever, Weight Change HEENT: Denies: Head Aches, Sinus Congestion, Sinus Drainage Cardiovascular: Denies: Chest Pain, Palpitations Respiratory: Denies: Cough, Shortness of breath at rest, Sputum production Gastrointestinal: Denies: Abdominal Pain, Nausea, Vomiting Genitourinary: Denies: Dysuria Musculoskeletal: Denies: Joint Pain, Joint Tenderness Skin: Denies: Rash, Wounds Neurological: Denies: Numbness, Tingling, Focal weakness Psychiatric: Denies: Anxiety, Depression, Homicidal Ideations, Suicidal Ideations Hematologic/ Lymphatic: Denies: Easy Bruising, Easy Bleeding VTE Information - Inpt Only VTE Present on Admission: No VTE Mechan Device Prophylaxis: SCD's - Physical Exam Vitals/I&O's: Vital Signs Temp Pulse Resp BP Pulse Ox 97.4 F L 93 16 106/53 L 93 07/28/20 07:13 07/28/20 07:13 07/28/20 07:13 07/28/20 07:13 07/28/20 07:13 Oxygen Delivery Method Room Air Weight: 101.9 kg Body Mass Index (BMI) 30.4 General: Alert, Oriented x3, Cooperative HEENT: Atraumatic, PERRLA, EOMI, Normocephalic Neck: Supple, No JVD, Negative Carotid Bruits Lungs: Clear to auscultation, Normal air movement Cardiovascular: Regular rate, No murmurs Abdomen: Bowel Sounds Present, Soft, Non Tender Extremities: No edema, Capillary Refill Less than 3 Seconds Skin: No rashes, No breakdown Musculoskeletal: No Tenderness to Palpation of Joints or Extremities Neurological: Cranial nerves II-XII grossly intact Psych/Mental Status: Normal Affect, Appropriate Microbiology Past 72 Hours 07/26/20 14:15 Interface Orders SARS-CoV-2 Antigen (Rapid) - Final Laboratory Results 07/28/20 06:47: POC PT 14.6 H, INR 1.20 Current Medications Cefazolin Sodium 2 gm/ Sodium (Chloride) 110 mls @ 150 mls/hr IV PREOP ONE Stop: 07/28/20 09:23 Lactated Ringer's () 1,000 mls @ 100 mls/hr IV .Q10H TITO Last Admin: 07/28/20 07:30 Dose: 100 mls/hr Documented by: Assessment/Plan All Active Problems (Last Reviewed 06/28/20 @ 15:55 by Keiko Serrano) Atrial fibrillation with rapid ventricular response (Acute) Acute on chronic anemia (Acute) Weakness (Acute) Respiratory failure (Acute) Acute exacerbation of CHF (congestive heart failure) (Acute) CHF (congestive heart failure) (Acute) 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
--- NOTE | 2020-07-28 08:23 | PCM.DC.URO ---
Discharge Diet: Light diet - advance as tolerated Discharge Activity: Return to Normal Activity Instructions: Transurethral Resection of the Prostate (TURP): Home Recovery Additional Instructions: restart coumadin in 7 days Allergies/Adverse Reactions: Allergies adhesive tape Allergy (Intermediate, Verified 07/28/20 07:10) dermatitis Medications to take at Discharge atorvastatin 80 mg tablet 80 mg PO QDAY 07/14/17 coenzyme Q10 100 mg capsule 100 mg PO QDAY 07/14/17 Tamsulosin HCl [Flomax] 0.4 mg PO QHS 11/04/18 aspirin 81 mg tablet,delayed release 81 mg PO DAILY 11/20/18 acetaminophen 325 mg capsule 650 mg PO Q6H PRN cap 01/04/19 omega-3s 300 cs-moi-dpn-other cxyzs1d-mzra oil 1,000 mg capsule 1 cap PO DAILY ea 01/19/20 ascorbic acid (vitamin C) 500 mg tablet 500 mg PO BID 02/15/20 ferrous sulfate 325 mg (65 mg iron) tablet 325 mg PO BID 02/15/20 metoprolol succinate 50 mg tablet,extended release 24 hr 50 mg PO DAILY #90 tab 03/10/20 Vitamin B Complex [B Complex] 1 ea PO DAILY 05/04/20 Furosemide 40 mg PO BID #60 tab 06/09/20 levothyroxine 112 mcg tablet 112 mcg PO DAILY 06/29/20 Cholecalciferol (Vitamin D3) [Vitamin D3] 50 mcg PO DAILY 07/21/20 Ciprofloxacin [Cipro] 500 mg PO BID #14 tab 07/28/20 The following prescriptions were given: Ciprofloxacin [Cipro] 500 mg PO BID #14 tab Transmission Status: Pending to [id number] Primary Care Physician: Kevin Boogie MD [Primary Care Provider] - Test Results: Test results from this visit will be discussed in further detail at your follow-up appointment, if applicable. Please Follow Up With: Eligio Garcia MD When: in 2 weeks, please call to make an appointment.
[2020-07-28] MEDS: Cefazolin 2 GM in 0.9% Normal Saline 100 ML IV (08:26)
--- NOTE | 2020-07-28 09:27 | OP.PCM_ITS ---
Report of Operation Date of Procedure: 07/28/20 Pre-Operative Diagnosis: BPH with obstruction Post-Operative Diagnosis: Same Surgery/Procedure Performed:: Transurethral section of prostate Description of Surgical Findings:: In the preoperative setting I discussed with the patient how the surgery would be done with expect afterwards. We discussed how a prostate resection is done and we discussed the risk of the surgery including, bleeding, infection, retrograde ejaculation, changes with ejaculation or intercourse,. We discussed the possibility that the resection of the prostate may not alleviate his urinary symptoms. We discussed the small risk of developing scar tissue along the urethral channel and strictures. We also discussed the chance of the prostate could grow back and he may need further surgery or treatment in the future for prostate problems. Patient was taken back to the operating room, timeout procedure was performed, he was identified and marked and placed on the operating room table. He underwent general anesthesia. He was placed in dorsolithotomy position. Penis and testicles were prepped and draped in usual sterile fashion. Went into the bladder using the visual obturator with a resectoscope. Once inside the bladder identified the right and left ureteral orifice. I then identified the prostate and the anatomy of the prostate. I marked out the area of the sphincter and the verumontanum was identified. I then proceeded with the prostate resection first resected the median lobe. And then resected the right lobe of the prostate. Then to resect the left lobe of the prostate. I then resected the apical tissue of the prostate. Made sure that there was no injury to the sphincter or the verumontanum was still intact. At the end of the resection all the chips were Ellik out of the bladder. I then identified the left and right ureteral orifice and these were confirmed to be in good position and effluxing and not injured. The resectoscope was removed, a 22 [place] catheter was placed into the bladder on continuous irrigation. And the urine was fairly light pink color and draining normally. He was taken back to the PACU in good condition. Type of Anesthesia:: General Drains: 22fr 3 way - Admit VTE Documentation VTE Present on Admission: No VTE Mechan Device Prophylaxis: SCD's
[2020-07-28] MEDS: 0.9% Normal Saline 1,000 ML 75 ML IV ×2 (09:49→20:34)
[2020-07-28] MEDS: Ciprofloxacin 400 MG/200 ML BAG 200 MG IV ×2 (15:44→20:33)
[2020-07-28] MEDS: Furosemide 40 MG Tablet PO (15:45)
[2020-07-28] MEDS: Pantoprazole Sodium 40 MG Tablet PO (15:45)
--- NOTE | 2020-07-28 16:00 | NURSING ---
ASsisted into chair at this time. Call light and phone in reach.
[2020-07-28] MEDS: Tamsulosin HCl 0.4 MG Capsule PO (20:34)
[2020-07-28] MEDS: Atorvastatin Calcium 80 MG Tablet PO (20:34)
[2020-07-29 02:32] VITALS: BP 109/50; PULSE 79; RESP 16; TEMP 36.3; O2SAT 96
[2020-07-29] MEDS: Levothyroxine 112 MCG Tablet PO (05:34)
[2020-07-29 08:33] VITALS: BP 103/61; PULSE 95; RESP 18; TEMP 36.8; O2SAT 94
[2020-07-29] MEDS: Ciprofloxacin 400 MG/200 ML BAG 200 MG IV (09:52)
[2020-07-29 09:53] VITALS: PULSE 74
[2020-07-29] MEDS: Docusate Sodium 100 MG Capsule PO (09:53)
[2020-07-29] MEDS: Pantoprazole Sodium 40 MG Tablet PO (09:53)
[2020-07-29] MEDS: Metoprolol(XL)Succ 50 MG Tablet PO (09:53)
[2020-07-29] MEDS: Furosemide 40 MG Tablet PO (09:53)
[2020-07-29 10:32] VITALS: PULSE 80
[2020-07-29 13:49] VITALS: BP 143/83; PULSE 76; RESP 18; TEMP 36.8; O2SAT 96
== END 2020-07-29 14:23 | disposition home or self-care (01) ==
LOC: SDC 06:32 → AC 06:32 → MS3 08:54
PROVIDERS: PCP Family Medicine; Referring Provider Urology; Visit Provider Urology
PROC: (CPT 52601; principal; 2020-07-28 08:40)
DX: N41.1 Chronic prostatitis (principal); N40.1 Benign prostatic hyperplasia with lower urinary tract symptoms; N13.8 Other obstructive and reflux uropathy; N39.498 Other specified urinary incontinence; R35.0 Frequency of micturition; R35.1 Nocturia; R33.8 Other retention of urine; R39.12 Poor urinary stream; Z20.822 Contact with and (suspected) exposure to COVID-19; I25.10 Atherosclerotic heart disease of native coronary artery without angina pectoris; I48.0 Paroxysmal atrial fibrillation; J44.9 Chronic obstructive pulmonary disease, unspecified; I10 Essential (primary) hypertension; E03.9 Hypothyroidism, unspecified; K21.9 Gastro-esophageal reflux disease without esophagitis; E66.9 Obesity, unspecified; Z79.01 Long term (current) use of anticoagulants; Z79.82 Long term (current) use of aspirin; Z79.899 Other long term (current) drug therapy; Z85.038 Personal history of other malignant neoplasm of large intestine; Z87.891 Personal history of nicotine dependence; Z95.1 Presence of aortocoronary bypass graft; Z87.19 Personal history of other diseases of the digestive system
CPT/HCPCS: 52601; 36416; 85610; 87426; 88305; J7030; J7120; J0744; J2405

== ENCOUNTER → 2020-09-26 16:38 | Outpatient (CLI) | payer MEDICARE, OTHER, SELFPAY ==
[2020-07-28 10:46] VITALS: BMI 30.4
[2020-09-26 17:49] LABS: Absolute Lymphocyte Count 1.28 X10^3/uL (0.83-4.51); Absolute Neutrophil Count 2.9 X10^3/uL (2.0-7.7); Basophil# 0.05 X10^3/uL; Basophil% 0.9 % (0-1); Eosinophil# 0.75 X10^3/uL; Eosinophils% 13.4 % (0-5); Hematocrit 38.5 % (40-54); Hemoglobin 11.8 g/dL (13.0-16.5); Lymphocyte # 1.28 X10^3/ul (0.83-4.51); Lymphocyte % 22.9 % (19-41); Mean Corp Hgb Conc 30.6 g/dL (32-36); Mean Corpuscular Hgb 28.9 pg (27.0-32.0); Mean Corpuscular Volume 94.4 fL (80-94); Mean Platelet Vol. 12.2 fl (6.2-12.0); Monocyte# 0.59 X10^3/uL; Monocyte% 10.6 % (0-10); NRBC Flagged by Analyzer 0 % (0-5); Neutrophil % 51.8 % (47-70); Platelet Count 137 K/mm3 (150-450); RBC Distribution Width CV 13.4 % (11.6-14.6); RBC Distribution Width SD 46.5 fl (35.1-43.9); Red Blood Count 4.08 M/mm3 (4.6-6.2); White Blood Count 5.6 K/mm3 (4.4-11.0)
[2020-09-26 18:09] LABS: Vitamin B12 472 pg/mL (211-911)
[2020-09-26 19:20] LABS: ALB/GLOB Ratio 0.9 RATIO (0.9-2.4); AST(SGOT) 32 U/L (15-37); Alanine Aminotransfer ALT/SGPT 24 U/L (16-61); Albumin, Serum 3.2 g/dL (3.2-5.0); Alkaline Phosphatase 170 U/L (45-117); Anion Gap 5 (5-15); BUN 22 mg/dL (7-18); BUN/Creat Ratio 18.5 RATIO (10-20); Calcium,Total 9.6 mg/dL (8.5-10.1); Chloride 108 mmol/L (98-107); Creatinine, Serum 1.19 mg/dL (0.70-1.30); EST Glomerular Filtration Rate 62 mL/min (>60); Est Glom Filt Rate - Afr Amer 75 mL/min (>60); Ferritin 40 ng/mL (26-388); Globulin 3.6 g/dL (2.2-4.2); Glucose 102 mg/dL (74-106); PSA,Total- Diagnostic 0.13 ng/mL (0.0-4.0); Potassium 3.9 mmol/L (3.5-5.1); Protein, Total 6.8 g/dL (6.4-8.2); Sodium Level 140 mmol/L (136-145); T4 Free Direct 1.21 ng/dL (0.76-1.46); Thyroid Stim Hormone (TSH) 7.52 uIU/mL (0.358-3.74)
== END ==
PROVIDERS: PCP Family Medicine; Referring Provider Family Medicine; Visit Provider Family Medicine
DX: E03.2 Hypothyroidism due to medicaments and other exogenous substances (principal); N40.0 Benign prostatic hyperplasia without lower urinary tract symptoms; E53.8 Deficiency of other specified B group vitamins; D64.9 Anemia, unspecified
CPT/HCPCS: 36415; 80053; 82607; 82728; 82746; 84153; 84439; 84443; 85025

== ENCOUNTER 2020-10-23 08:53 | Outpatient (RCR) | payer MEDICARE, OTHER, SELFPAY ==
[2020-10-16 12:53] VITALS: BMI 31.6
[2020-10-16 15:06] LABS: International Normalized Ratio 1.4; Prothrombin Time (Protime)PT. 16.5 SECONDS (11.7-14.9)
[2020-10-23 09:28] LABS: International Normalized Ratio 1.6; Prothrombin Time (Protime)PT. 18.5 SECONDS (11.7-14.9)
== END 2020-10-23 18:00 | disposition home or self-care (01) ==
LOC: LAB 08:53
PROVIDERS: Nurse Practitioner Family; Family Provider Family Medicine; PCP Family Medicine; Referring Provider Specialist; Visit Provider Specialist
DX: I48.0 Paroxysmal atrial fibrillation (principal); Z79.01 Long term (current) use of anticoagulants
CPT/HCPCS: 36415; 85610

== ENCOUNTER 2020-11-21 08:41 | Outpatient (RCR) | payer MEDICARE, OTHER, SELFPAY ==
[2020-10-16 12:53] VITALS: BMI 31.6
[2020-10-31 10:48] LABS: International Normalized Ratio 1.7; Prothrombin Time (Protime)PT. 19.1 SECONDS (11.7-14.9)
[2020-11-07 09:20] LABS: International Normalized Ratio 2.2; Prothrombin Time (Protime)PT. 23.8 SECONDS (11.7-14.9)
[2020-11-21 10:09] LABS: International Normalized Ratio 2.2; Prothrombin Time (Protime)PT. 23.8 SECONDS (11.7-14.9)
== END 2020-11-21 18:00 | disposition home or self-care (01) ==
LOC: LAB 08:41
PROVIDERS: Family Provider Family Medicine; PCP Family Medicine; Referring Provider Specialist; Visit Provider Specialist
DX: I48.0 Paroxysmal atrial fibrillation (principal); Z79.01 Long term (current) use of anticoagulants
CPT/HCPCS: 36415; 85610

== ENCOUNTER 2020-12-12 09:11 | Outpatient (RCR) | payer MEDICARE, OTHER, SELFPAY ==
[2020-10-16 12:53] VITALS: BMI 31.6
[2020-12-12 10:14] LABS: Prothrombin Time (Protime)PT. 22.2 SECONDS (11.7-14.9)
== END 2020-12-12 18:00 | disposition home or self-care (01) ==
LOC: LAB 09:11
PROVIDERS: Family Provider Family Medicine; PCP Family Medicine; Referring Provider Specialist; Visit Provider Specialist
DX: I48.0 Paroxysmal atrial fibrillation (principal); Z79.01 Long term (current) use of anticoagulants
CPT/HCPCS: 36415; 85610

== ENCOUNTER → 2020-12-25 09:29 | Outpatient (CLI) | payer MEDICARE, OTHER, SELFPAY ==
[2020-10-16 12:53] VITALS: BMI 31.6
[2020-12-25 10:39] LABS: Absolute Lymphocyte Count 1.26 X10^3/uL (0.83-4.51); Absolute Neutrophil Count 4.2 X10^3/uL (2.0-7.7); Basophil# 0.06 X10^3/uL; Basophil% 0.9 % (0-1); Eosinophil# 0.66 X10^3/uL; Eosinophils% 9.5 % (0-5); Hematocrit 34.6 % (40-54); Hemoglobin 10.5 g/dL (13.0-16.5); Lymphocyte # 1.26 X10^3/ul (0.83-4.51); Lymphocyte % 18.1 % (19-41); Mean Corp Hgb Conc 30.3 g/dL (32-36); Mean Corpuscular Hgb 28.4 pg (27.0-32.0); Mean Corpuscular Volume 93.5 fL (80-94); Mean Platelet Vol. 11.9 fl (6.2-12.0); Monocyte# 0.74 X10^3/uL; Monocyte% 10.6 % (0-10); NRBC Flagged by Analyzer 0 % (0-5); Neutrophil # 4.22 X10^3/uL (2.7-7.7); Neutrophil % 60.8 % (47-70); Platelet Count 167 K/mm3 (150-450); RBC Distribution Width SD 51.1 fl (35.1-43.9)
[2020-12-25 11:24] LABS: ALB/GLOB Ratio 0.9 RATIO (0.9-2.4); AST(SGOT) 25 U/L (15-37); Alanine Aminotransfer ALT/SGPT 20 U/L (16-61); Albumin, Serum 3.3 g/dL (3.2-5.0); Alkaline Phosphatase 157 U/L (45-117); Anion Gap 4 (5-15); BUN 18 mg/dL (7-18); BUN/Creat Ratio 17.6 RATIO (10-20); Calcium,Total 9.7 mg/dL (8.5-10.1); Chloride 111 mmol/L (98-107); Creatinine, Serum 1.02 mg/dL (0.70-1.30); EST Glomerular Filtration Rate 74 mL/min (>60); Est Glom Filt Rate - Afr Amer 89 mL/min (>60); Globulin 3.8 g/dL (2.2-4.2); Glucose 69 mg/dL (74-106); Potassium 4.1 mmol/L (3.5-5.1); Protein, Total 7.1 g/dL (6.4-8.2); Sodium Level 139 mmol/L (136-145); T4 Free Direct 1.17 ng/dL (0.76-1.46); Thyroid Stim Hormone (TSH) 8.86 uIU/mL (0.358-3.74)
== END ==
PROVIDERS: PCP Family Medicine; Visit Provider Family Medicine
DX: I10 Essential (primary) hypertension (principal)
CPT/HCPCS: 36415; 80053; 84439; 84443; 85025

== ENCOUNTER 2021-01-24 08:53 | Outpatient (RCR) | payer MEDICARE, OTHER, SELFPAY ==
[2020-10-16 12:53] VITALS: BMI 31.6
[2021-01-02 09:51] LABS: Prothrombin Time (Protime)PT. 21.6 SECONDS (11.7-14.9)
[2021-01-24 09:42] LABS: International Normalized Ratio 2.5; Prothrombin Time (Protime)PT. 26.2 SECONDS (11.7-14.9)
== END 2021-01-24 18:00 | disposition home or self-care (01) ==
LOC: LAB 08:53
PROVIDERS: Family Provider Family Medicine; PCP Family Medicine; Referring Provider Specialist; Visit Provider Specialist
DX: I48.0 Paroxysmal atrial fibrillation (principal); Z79.01 Long term (current) use of anticoagulants
CPT/HCPCS: 36415; 85610

== ENCOUNTER 2021-02-23 08:30 | Outpatient (RCR) | payer MEDICARE, OTHER, SELFPAY ==
[2021-01-31 00:27] VITALS: BMI 31.6
[2021-02-23 09:01] LABS: Absolute Lymphocyte Count 1.26 X10^3/uL (0.83-4.51); Absolute Neutrophil Count 4.5 X10^3/uL (2.0-7.7); Basophil# 0.05 X10^3/uL; Basophil% 0.7 % (0-1); Eosinophils% 9.7 % (0-5); Hematocrit 32.7 % (40-54); Hemoglobin 9.8 g/dL (13.0-16.5); Lymphocyte # 1.26 X10^3/ul (0.83-4.51); Lymphocyte % 17.5 % (19-41); Mean Corpuscular Hgb 26.8 pg (27.0-32.0); Mean Corpuscular Volume 89.3 fL (80-94); Mean Platelet Vol. 11.8 fl (6.2-12.0); Monocyte# 0.63 X10^3/uL; Monocyte% 8.8 % (0-10); NRBC Flagged by Analyzer 0 % (0-5); Neutrophil # 4.53 X10^3/uL (2.7-7.7); Neutrophil % 62.9 % (47-70); Platelet Count 169 K/mm3 (150-450); RBC Distribution Width CV 15.8 % (11.6-14.6); RBC Distribution Width SD 51.2 fl (35.1-43.9); Red Blood Count 3.66 M/mm3 (4.6-6.2); White Blood Count 7.2 K/mm3 (4.4-11.0)
[2021-02-23 09:15] LABS: International Normalized Ratio 3.1
[2021-02-23 09:34] LABS: Microalbumin,Random Urine 11.8 mg/L (NO RANGE EST.); Microalbumin:Creatinine Ratio 15.3 mg/g CRE (<30 mg/g CRE)
[2021-02-23 09:53] LABS: Vitamin B12 432 pg/mL (211-911)
[2021-02-23 10:28] LABS: ALB/GLOB Ratio 0.8 RATIO (0.9-2.4); AST(SGOT) 20 U/L (15-37); Alanine Aminotransfer ALT/SGPT 16 U/L (16-61); Albumin, Serum 3.1 g/dL (3.2-5.0); Alkaline Phosphatase 169 U/L (45-117); Anion Gap 4 (5-15); BUN 18 mg/dL (7-18); Calcium,Total 9.3 mg/dL (8.5-10.1); Chloride 109 mmol/L (98-107); Creatinine, Serum 1.06 mg/dL (0.70-1.30); EST Glomerular Filtration Rate 71 mL/min (>60); Est Glom Filt Rate - Afr Amer 85 mL/min (>60); Globulin 4.1 g/dL (2.2-4.2); Glucose 88 mg/dL (74-106); Potassium 3.8 mmol/L (3.5-5.1); Protein, Total 7.2 g/dL (6.4-8.2); Sodium Level 139 mmol/L (136-145); Thyroid Stim Hormone (TSH) 3.61 uIU/mL (0.358-3.74)
== END 2021-02-23 18:00 | disposition home or self-care (01) ==
LOC: LAB 08:30
PROVIDERS: Family Provider Family Medicine; PCP Family Medicine; Referring Provider Specialist; Visit Provider Specialist
DX: I48.0 Paroxysmal atrial fibrillation (principal); Z79.01 Long term (current) use of anticoagulants
CPT/HCPCS: 36415; 80053; 82043; 82570; 82607; 82746; 84439; 84443; 85025; 85610

== ENCOUNTER 2021-03-30 08:59 | Outpatient (RCR) | payer MEDICARE, OTHER, SELFPAY ==
[2021-03-01 22:14] VITALS: BMI 31.6
[2021-03-02 09:52] LABS: International Normalized Ratio 2.6; Prothrombin Time (Protime)PT. 27.1 SECONDS (11.7-14.9)
[2021-03-23 09:52] LABS: International Normalized Ratio 3.2; Prothrombin Time (Protime)PT. 31.9 SECONDS (11.7-14.9)
[2021-03-30 10:08] LABS: International Normalized Ratio 2.4
== END 2021-04-01 04:59 | disposition home or self-care (01) ==
LOC: LAB 08:59
PROVIDERS: Internal Medicine Cardiovascular Disease; Family Provider Family Medicine; PCP Family Medicine; Referring Provider Specialist; Visit Provider Specialist
DX: I48.0 Paroxysmal atrial fibrillation (principal); Z79.01 Long term (current) use of anticoagulants
CPT/HCPCS: 36415; 85610

== ENCOUNTER 2021-04-20 09:51 | Outpatient (RCR) | payer MEDICARE, OTHER, SELFPAY ==
[2021-04-01 05:00] VITALS: BMI 31.6
[2021-04-20 11:33] LABS: International Normalized Ratio 3.4; Prothrombin Time (Protime)PT. 33.5 SECONDS (11.7-14.9)
== END 2021-05-01 18:00 | disposition home or self-care (01) ==
LOC: LAB 09:51
PROVIDERS: Family Provider Family Medicine; PCP Family Medicine; Referring Provider Specialist; Visit Provider Specialist
DX: I48.0 Paroxysmal atrial fibrillation (principal); Z79.01 Long term (current) use of anticoagulants
CPT/HCPCS: 36415; 85610

== ENCOUNTER → 2021-04-25 09:41 | Outpatient (CLI) | payer MEDICARE, OTHER, SELFPAY ==
--- NOTE | 2021-04-25 09:46 | RAD_ITS ---
INDICATION: SOB EXAMINATION/TECHNIQUE: X-RAY - XR Chest 2 Views COMPARISON: Chest radiograph from 06/07/2020, 06/05/2020. 10/20/2019. FINDINGS: LINES/DEVICES: None. Heart size is stable and not enlarged. Similar degree of right apical pleural thickening, and right lower lobe costophrenic angle blunting/pleural thickening. Right basilar pleural scarring. Similar extent and distribution bilateral chronic interstitial changes. No sizable pleural effusion or pneumothorax. No focal consolidations. Stable midline sternotomy postoperative changes. Stable mediastinal surgical clips. Bones and soft tissues are overall unchanged. RAD/Chest PA and Lateral IMPRESSION: No acute findings with stable examination since at least 10/20/2019. Electronically Signed: Toy Chapman MD at 14:01 EST Tel , Service support ,
[2021-04-25 10:37] LABS: Absolute Lymphocyte Count 0.91 X10^3/uL (0.83-4.51); Absolute Neutrophil Count 7.4 X10^3/uL (2.0-7.7); Basophil# 0.04 X10^3/uL; Basophil% 0.4 % (0-1); Eosinophil# 0.23 X10^3/uL; Eosinophils% 2.5 % (0-5); Lymphocyte # 0.91 X10^3/ul (0.83-4.51); Lymphocyte % 9.7 % (19-41); Mean Corp Hgb Conc 28.6 g/dL (32-36); Mean Corpuscular Hgb 22.3 pg (27.0-32.0); Mean Corpuscular Volume 78.1 fL (80-94); Mean Platelet Vol. 11.8 fl (6.2-12.0); Monocyte# 0.79 X10^3/uL; Monocyte% 8.4 % (0-10); NRBC Flagged by Analyzer 0 % (0-5); Neutrophil # 7.37 X10^3/uL (2.7-7.7); Neutrophil % 78.6 % (47-70); Platelet Count 230 K/mm3 (150-450); RBC Distribution Width CV 19.1 % (11.6-14.6); RBC Distribution Width SD 54.4 fl (35.1-43.9); Red Blood Count 2.69 M/mm3 (4.6-6.2); White Blood Count 9.4 K/mm3 (4.4-11.0)
[2021-04-25 11:08] LABS: BNP,B-Type NATRIURETIC PEPTIDE 154.8 pg/mL (0-100)
[2021-04-25 11:18] LABS: Anion Gap 9 (5-15); BUN 41 mg/dL (7-18); BUN/Creat Ratio 27.7 RATIO (10-20); Calcium,Total 9.4 mg/dL (8.5-10.1); Chloride 103 mmol/L (98-107); Creatinine, Serum 1.48 mg/dL (0.70-1.30); EST Glomerular Filtration Rate 48 mL/min (>60); Est Glom Filt Rate - Afr Amer 58 mL/min (>60); Glucose 104 mg/dL (74-106); Potassium 3.6 mmol/L (3.5-5.1); Sodium Level 139 mmol/L (136-145)
[2021-04-27 15:19] LABS: Pathologist Review Reviewed
== END ==
PROVIDERS: PCP Family Medicine; Referring Provider Nurse Practitioner Family; Visit Provider Nurse Practitioner Family
DX: I11.0 Hypertensive heart disease with heart failure (principal); I50.9 Heart failure, unspecified; R06.09 Other forms of dyspnea; R06.02 Shortness of breath
CPT/HCPCS: 36415; 71046; 80048; 83880; 85025

== ENCOUNTER 2021-04-25 11:52 | Inpatient (IN) | payer MEDICARE, OTHER, SELFPAY ==
[2021-04-25] VITALS (13 sets, daily range): BP systolic 96–118; BP diastolic 53–75; PULSE 74–112; RESP 14–21; TEMP 36.1–36.8; O2SAT 97–100; BMI 31.7; BMI 31.4
--- NOTE | 2021-04-25 12:13 | EX.ED.DYSGE1 ---
HPI History of Present Illness Chief Complaint: Abn Labs Narrative Narrative: Patient presents with abnormal laboratory work. He has history of chronic anemia for which she has received blood transfusions in the past. The last has been months ago. He states he never found a bleeding source. He denies any dark tarry stool, or any other bleeding diathesis. He has been short of breath for the last few months. Denies any chest pain. He also endorses fatigue and a generalized weakness. He states he saw his primary care physician who performed a chest x-ray, and laboratory work. He went home and received a call that his hemoglobin was 6. He was told to come to the emergency department immediately. [facility] Medical History (Updated 04/25/21 @ 13:31 by Tal Esquivel MD) Abnormality of gait Acid reflux Allergic rhinitis Anemia Aortic stenosis Atherosclerosis of coronary artery of [place] heart without angina pectoris Blood clots in stool Carotid artery disease Colon cancer COPD (chronic obstructive pulmonary disease) Hyperlipidemia Hypertension Hypothyroidism (acquired) New onset atrial fibrillation Obesity Paroxysmal atrial fibrillation Pre-operative cardiovascular examination Prostatic hypertrophy Home Medications atorvastatin 80 mg tablet 80 mg PO QDAY 07/14/17 [History Last Taken 06/02/20] coenzyme Q10 100 mg capsule 100 mg PO QDAY 07/14/17 [History Last Taken 06/02/20] aspirin 81 mg tablet,delayed release 81 mg PO DAILY 11/20/18 [History Last Taken 06/02/20] omega-3s 300 ut-xsx-dau-other hpyxs3i-yxoy oil 1,000 mg capsule 1 cap PO DAILY ea 01/19/20 [History Last Taken 06/02/20] ascorbic acid (vitamin C) 500 mg tablet 500 mg PO BID 02/15/20 [History Last Taken 06/02/20] metoprolol succinate 50 mg tablet,extended release 24 hr 50 mg PO DAILY #90 tab 04/05/21 [Rx Last Taken Unknown] famotidine 40 mg tablet 40 mg PO DAILY tab 04/25/21 [History Last Taken Unknown] furosemide 40 mg tablet 40 mg PO BID tab 04/25/21 [History Last Taken Unknown] levothyroxine 125 mcg PO DAILY 04/25/21 [History Last Taken 04/25/21] warfarin 2.5 mg PO FR 04/25/21 [History Last Taken 04/20/21] warfarin 2.5 mg tablet See Rx Instructions PO DAILY tab 04/25/21 [History Last Taken Unknown] Allergy/AdvReac Type Severity Reaction Status Date / Time adhesive tape Allergy Intermediate dermatitis Verified 04/25/21 11:55 Family History Father , of pneumonia Pneumonia Mother , of CAD CAD (coronary artery disease) Arthritis Sister , Cause unknown Rheumatoid arthritis Oral cancer Sister Arthritis Sister No problems noted. Sister No problems noted. Surgical History History of bladder surgery History of cardioversion (05/31/19) History of colectomy History of colonoscopy (09/30/17) History of coronary artery bypass graft x 3 (12/25/18) History of right and left heart catheterization (12/02/18) Status post mitral valve repair (12/25/18) Social History Smoking Status: Former smoker quit date: 06/04/96 pack-years: 40 how long ago did patient quit smokin years ago alcohol intake: never substance use type: does not use caffeine: Yes Type: coffee Number of servings: 2 ROS ROS ED ROS Narrative Constitutional: No fever, no chills. Positive fatigue HEENT: No sore throat. No neck pain. No loss of vision. No rhinorrhea. Cardiovascular: No chest pain. No palpitations. No pedal edema. Respiratory: No cough, positive shortness of breath. Abdominal: No abdominal pain. No nausea. No vomiting. No dark tarry stool, no hematochezia. Genitourinary: No dysuria. No hematuria. Musculoskeletal: No myalgias. No arthralgias. Neurologic: No headaches. No dizziness. No lightheadedness. Generalized weakness. Skin: No rash. No change in color. Psychiatric: No depression. No anxiety. EXAM Physical Exam Narrative Exam Narrative: Afebrile. Vital signs noted. HEENT: Normocephalic. Atraumatic. PERRL, EOMI. Neck soft and supple. No point tenderness or step off. Cardiovascular: Regular rate and rhythm. No murmurs, rubs, or gallops appreciated. Respiratory: No tachypnea. Lungs clear to auscultation bilaterally. Gastrointestinal: Abdomen soft, nontender, with normoactive bowel sounds. No rebound or guarding. Patient refused rectal examination. Neurological: Awake. Alert. Nonfocal, nonlateralizing. Skin: No rash. Normal color. Positive subconjunctival and palmar pallor. Musculoskeletal: No pedal edema. Full range of motion extremities. Const Vital Signs: 04/25/21 11:53 04/25/21 12:50 04/25/21 12:52 Temperature 97.2 F L Temperature Source Temporal Pulse Rate 87 86 Respiratory Rate 16 14 Respiratory Effort Normal Non-Labored Respiratory Pattern Normal Blood Pressure 111/66 103/60 Blood Pressure Mean 81 74 Pulse Ox 100 100 Oxygen Delivery Method Room Air Room Air MDM MDM MDM Narrative Medical decision making narrative: I reviewed the patient's laboratory work from today. He does have a hemoglobin of 6. This will be repeated along with a BMP. He will receive type and screen and transfusion of 2 units of packed red blood cells. He will be consented. Covid swab was also obtained as I feel he may require admission. CBC shows white count of 8.2. Hemoglobin 5.8 here in the emergency department. INR is therapeutic at 2.7. I believe he takes this for atrial fibrillation his electrolyte panel is grossly unremarkable except for slightly elevated creatinine of 1.5 and a BUN of 43. He was typed and screened for 2 units. He will be consented for blood transfusion. I then discussed the patient with Dr. Arely Virgen who will admit the patient to the PCU. She did request that he be given vitamin K. He was given 5 mg orally. He is in stable condition. Lab Data Attestation: I reviewed the patient's lab results. Labs: Laboratory Results - last 24 hr 04/25/21 04/25/21 04/25/21 12:33 12:33 12:33 WBC 8.2 RBC 2.72 L Hgb 5.8 L* Hct 20.6 L MCV 75.7 L MCH 21.3 L MCHC 28.2 L RDW Std Deviation 51.7 H RDW Coeff of Marcelino 18.7 H Plt Count 218 MPV 11.4 Differential Comment SCANNED Diff Path Review September foll PT 27.6 H INR 2.7 Sodium 140 Potassium 3.8 Chloride 104 Carbon Dioxide 26.0 Anion Gap 10 BUN 43 H Creatinine 1.51 H Estim Creat Clear Calc 39.26 Est GFR (MDRD) Af Amer 57 L Est GFR (MDRD) Non-Af 47 L BUN/Creatinine Ratio 28.5 H Glucose 106 Calcium 9.3 Discharge Plan Dx/Rx/DC Orders Clinical Impression: Anemia requiring transfusions, SOB (shortness of breath) Disposition Disposition: Acute Care Hospital [facility]
[2021-04-25 12:41] LABS: Hematocrit 20.6 % (40-54); Mean Corp Hgb Conc 28.2 g/dL (32-36); Mean Corpuscular Hgb 21.3 pg (27.0-32.0); Mean Corpuscular Volume 75.7 fL (80-94); Mean Platelet Vol. 11.4 fl (6.2-12.0); POSITIVE COUNT YES; Platelet Count 218 K/mm3 (150-450); RBC Distribution Width CV 18.7 % (11.6-14.6); RBC Distribution Width SD 51.7 fl (35.1-43.9); Red Blood Count 2.72 M/mm3 (4.6-6.2); White Blood Count 8.2 K/mm3 (4.4-11.0)
[2021-04-25 12:50] LABS: International Normalized Ratio 2.7; Prothrombin Time (Protime)PT. 27.6 SECONDS (11.7-14.9)
[2021-04-25 12:54] LABS: Anion Gap 10 (5-15); BUN 43 mg/dL (7-18); BUN/Creat Ratio 28.5 RATIO (10-20); Calcium,Total 9.3 mg/dL (8.5-10.1); Chloride 104 mmol/L (98-107); Creatinine, Serum 1.51 mg/dL (0.70-1.30); EST Glomerular Filtration Rate 47 mL/min (>60); Est Glom Filt Rate - Afr Amer 57 mL/min (>60); Estimated Creatinine Clearance 39.26 ml/min; Glucose 106 mg/dL (74-106); Potassium 3.8 mmol/L (3.5-5.1); Sodium Level 140 mmol/L (136-145)
[2021-04-25 12:56] LABS: Hemoglobin 5.8 g/dL (13.0-16.5); Scan Indicated on CBC? Y/N YES- FLAGS NOTED
--- NOTE | 2021-04-25 12:57 | ED.RN ---
DR. DISLA NOTIFIED OF HGB 5.8.
--- NOTE | 2021-04-25 13:00 | ED.RN ---
CALLED AND TALKED TO PT'S STEP SON HODAN, LETTING HIM KNOW THAT PT WOULD BE IN THE DEPARTMENT FOR SEVERAL HOURS AND MIGHT BE GETTING ADMITTED. HODAN'S NUMBER IS [phone]
[2021-04-25 13:03] LABS: Differential Comment SCANNED
--- NOTE | 2021-04-25 13:18 | HP.PCM.HOS_ITS ---
HPI - General General Date of Admission: 04/25/21 Date of Service: 04/25/21 Chief Complaint: Sent with abnormal labs, Hgb 6 w/ progressively worsening dyspnea. HPI Narrative The patient is an 85 y/o M w/ PMHx: Chronic Diastolic CHF, Chronic COPD, Former Tobacco use, Chronic anemia/Fe deficiency anemia, HTN, HLD, GERD w/ Hx GI bleed prior, Hx Colon CA s/p colectomy, PAF s/p cardioversion, Hypothyroidism, CAD s/p CABG x 3, Valvular Heart Disease s/p MV repair, BPH, Hx VTE who presents to the [facility] ED on 04/25/21 with history of progressively worsening dyspnea, worse on week of presentation with CXR and lab work with Hgb 6.0, denied any black stools or bright red blood. He notes this happened prior and he was scoped at that time with no obvious source but he notes this was at least couple years prior and he cannot recall who performed the endoscopies. He also reports generalized weakness which has been more pronounced over the last couple weeks. He notes that even walking has been difficult. Work-up in the ED included T 97.2, heart rate 87, BP 111/66, respiratory rate 16, 100% on room air, CBC with WC 8.2, hemoglobin 5.8, platelet 218 with no differential performed, coags with INR 2.7, PT 27.6, BMP with BUN/creatinine 43/1.51, type and cross pending per ED, rapid SARS Covid antigen negative. In the ED patient administered vitamin K and 2 u PRBC initiated. [facility] Medical History (Updated 04/25/21 @ 13:31 by Tal Esquivel MD) Abnormality of gait Acid reflux Allergic rhinitis Anemia Aortic stenosis Atherosclerosis of coronary artery of [place] without angina pectoris Blood clots in stool Carotid artery disease Colon cancer COPD (chronic obstructive pulmonary disease) Hyperlipidemia Hypertension Hypothyroidism (acquired) New onset atrial fibrillation Obesity Paroxysmal atrial fibrillation Pre-operative cardiovascular examination Prostatic hypertrophy Home Medications atorvastatin 80 mg tablet 80 mg PO DAILY 07/14/17 [History Last Taken 04/25/21] coenzyme Q10 100 mg capsule 100 mg PO DAILY 07/14/17 [History Last Taken 04/25/21] aspirin 81 mg tablet,delayed release 81 mg PO DAILY 11/20/18 [History Last Taken 04/25/21] omega-3s 300 in-ocr-eku-other [id number] oil 1,000 mg capsule 1 cap PO DAILY ea 01/19/20 [History Last Taken 04/25/21] ascorbic acid (vitamin C) 500 mg tablet 500 mg PO BID 02/15/20 [History Last Taken 04/25/21] metoprolol succinate 50 mg tablet,extended release 24 hr 50 mg PO DAILY #90 tab 04/05/21 [Rx Last Taken 04/25/21] famotidine 40 mg tablet 40 mg PO DAILY tab 04/25/21 [History Last Taken 04/25/21] furosemide 40 mg tablet 40 mg PO BID@0800,1200 tab 04/25/21 [History Last Taken 04/25/21] levothyroxine 125 mcg PO DAILY 04/25/21 [History Last Taken 04/25/21] warfarin 2.5 mg PO FR 04/25/21 [History Last Taken 04/20/21] warfarin 2.5 mg tablet 5 mg PO SUMOTUWETHSA tab 04/25/21 [History Last Taken 04/24/21] Allergy/AdvReac Type Severity Reaction Status Date / Time adhesive tape Allergy Intermediate dermatitis Verified 04/25/21 11:55 Family History Father , of pneumonia Pneumonia Mother , of CAD CAD (coronary artery disease) Arthritis Sister , Cause unknown Rheumatoid arthritis Oral cancer Sister Arthritis Sister No problems noted. Sister No problems noted. Surgical History (Updated 04/25/21 @ 13:[address] Arely Virgen MD) History of bladder surgery History of cardioversion (05/31/19) History of colectomy History of colonoscopy (09/30/17) History of coronary artery bypass graft x 3 (12/25/18) History of right and left heart catheterization (12/02/18) S/P TURP Status post mitral valve repair (12/25/18) Social History (Updated 04/25/21 @ 13:[address] Arely Virgen MD) household members: spouse Smoking Status: Former smoker quit date: 06/04/96 pack-years: 40 how long ago did patient quit smokin years ago alcohol intake: never substance use type: does not use caffeine: Yes Type: coffee Number of servings: 2 ROS ROS Narrative Admission Review of Systems: CONSTITUTIONAL: No weight loss, fever, chills, + weakness or fatigue. HEENT: Eyes: No visual loss, blurred vision, double vision or yellow sclerae. Ears, Nose, Throat: No hearing loss, sneezing, congestion, runny nose or sore throat. SKIN: No rash or itching, lesions, wounds. CARDIOVASCULAR: + Edema. No chest pain, chest pressure or chest discomfort, palpitations, orthopnea, syncopal events. RESPIRATORY: + shortness of breath, No cough or sputum, wheezing, hemoptysis. GASTROINTESTINAL: No anorexia, nausea, vomiting or diarrhea, abdominal pain, melena, BRBPR. GENITOURINARY: No dysuria, frequency, urgency or retention. NEUROLOGICAL: No headache, dizziness, syncope, paralysis, ataxia, numbness or tingling in the extremities, focal weakness, change in bowel or bladder control, seizure. MUSCULOSKELETAL: + muscle, back pain, joint pain or stiffness. HEMATOLOGIC: + anemia, bleeding or bruising. LYMPHATICS: No enlarged nodes. No history of splenectomy. PSYCHIATRIC: No history of depression or anxiety. ENDOCRINOLOGIC: No reports of sweating, cold or heat intolerance. No polyuria or polydipsia. ALLERGIES: + history of asthma, hives, eczema or rhinitis. Vital Signs Vital Signs Vital Signs: 04/25/21 11:53 04/25/21 12:50 04/25/21 12:52 Temperature 97.2 F L Temperature Source Temporal Pulse Rate 87 86 Respiratory Rate 16 14 Respiratory Effort Normal Non-Labored Respiratory Pattern Normal Blood Pressure 111/66 103/60 Blood Pressure Mean 81 74 Pulse Ox 100 100 Oxygen Delivery Method Room Air Room Air Weight Weight: 234 lb Body Mass Index (BMI) 31.7 Physical Exam Narrative Physical Examination: General: Awake, alert, oriented x 3 and cooperative, seated upright in the ED be d in no apparent distress but fatigued appearing. Skin: Pale color, normal turgor, no icterus, no cyanosis. HEENT: AT/NC, EOMI, PERRLA, mildly dry MM, no carotid bruits or JVD noted. Lungs: Diminished, greater bases, mildly increased respiratory rate but no obvious significant distress, no rales, ronchi or wheezing. Heart: Irregular rhythm; no gallop, rub audible. Abdomen: Soft, obese, NTTP, ND, mildly hyperactive distant BS, no obvious evidence of HSM. Extremities: No cyanosis, no clubbing, bilateral lower extremity pedal to mid elizondo chronic edema 1-2+. Neurological: Patient awake, alert, oriented as noted, cognitive function intact; pupils equally reactive to light and accommodation, cranial nerves II- XII grossly normal, moving all 4 extremities, no focal deficits, strength moderately to severely global decrease secondary to acute presentation. Psychiatric: Affect appears fatigued, no acute evidence of depressive or anxiety feelings. Results Lab / Micro Data Result Diagrams: 04/25/21 12:33 04/25/21 12:33 Labs: Laboratory Results - last 24 hr 04/25/21 12:33: WBC 8.2, RBC 2.72 L, Hgb 5.8 L*, Hct 20.6 L, MCV 75.7 L, MCH 21.3 L, MCHC 28.2 L, RDW Std Deviation 51.7 H, RDW Coeff of Marcelino 18.7 H, Plt Coun t 218, MPV 11.4, Differential Comment SCANNED, Diff Path Review September04/25/21 12:33: Sodium 140, Potassium 3.8, Chloride 104, Carbon Dioxide 26.0, Anion Gap 10, BUN 43 H, Creatinine 1.51 H, Estim Creat Clear Calc 39.26, Est GFR (MDRD) Af Amer 57 L, Est GFR (MDRD) Non-Af 47 L, BUN/Creatinine Ratio 28.5 H, Glucose 106, Calcium 9.3 04/25/21 12:33: PT 27.6 H, INR 2.7 Assessment & Plan Assessment/Plan (1) Acute on chronic anemia: PLAN: The patient is an 85 y/o M w/ PMHx: Chronic Diastolic CHF, Chronic COPD, Former Tobacco use, Chronic anemia/Fe deficiency anemia, HTN, HLD, GERD w/ Hx GI bleed prior, Hx Colon CA s/p colectomy, PAF s/p cardioversion, Hypothyroidism, CAD s/p CABG x 3, Valvular Heart Disease s/p MV repair, BPH, Hx VTE who presents to the [facility] ED on 04/25/21 with history of progressively worsening dyspnea, worse on week of presentation with CXR and lab work with Hgb 6.0, denied any black stools or bright red blood. 1. Acute on Chronic Anemia/Iron deficiency anemia, Possible GI Bleed, but uncl ear source, Hx prior Colon CA: Admission Hgb 5.8, was early in the morning 6 per cardiology office with referral to ED, will admit to PCU, maintain on IVFs. Admission INR 2.7, will reverse coagulopathy. Will obtain serial H+Hs, continue planned PRBC administration, maintain on IV PPI. GI consulted, pending. Maintain on fall precautions with judicious hydration pending PRBC administration. 2. History of colon cancer: Status post partial colectomy, noted two sections, given presentation some concern, will continue evaluation as noted above. 3. PAF: Status post prior cardioversion, temporarily holding metoprolol given blood pressures decreasing while in the ED in the acute setting of #1, add back metoprolol once appropriate, holding aspirin and reversing Coumadin as noted. 4. CAD: Status post CABG x 3 NEFF to LAD, SVG to Lateral CX, and SVG to PDA 12/25/18 F [facility], holding aspirin, reversing Coumadin given acute presentation #1, temporarily holding metoprolol with resumption once BP improved, continue statin therapy. Not on NILSON inhibitor/ARB. 5. Chronic Diastolic CHF: 02/03/2020 echocardiogram with EF 60%, no evidence diastolic dysfunction, severely enlarged LA, trivial MVI, mild MV stenosis, trivial TVI, mild aortic stenosis, as noted holding aspirin, reversing Coumadin with INR trending, temporarily holding Lasix and metoprolol given low BP but will resume once BP is improved likely following PRBC administration. If necessary may administer IV Lasix in between PRBC and will judiciously hydrate until PRBC available. 6. Carotid disease: History of occluded proximal right carotid and right vertebral with collaterals, as noted holding coumadin w/ reversal given presentation pending evaluation w/ GI again, continue statin, temporarily holding HTN regimen given low normal BP with resumptions once improved. 7. Valvular heart disease: Status post MV repair with Moreno band #29, 02/03/2020 echocardiogram with EF 60%, no evidence diastolic dysfunction, severely enlarged LA, trivial MVI, mild MV stenosis, trivial TVI, mild aortic stenosis. Presume repair following this echocardiogram. 8. Chronic COPD: Not on any routine inhalers, PRN albuterol, HOB, IS parameters. 9. Hypertension: Upon presentation BP decreasing, will temporarily hold Lasix and metoprolol until PRBC administrations and improve BP, as needed IV hydralazine. 10. Hx VTE: Given acute presentation temporarily reversing given risk to benefit ratio, will await evaluation as noted above for consideration resumption. 11. Former Tobacco use: Encourage continued cessation. 12. Hyperlipidemia: Continue home statin therapy. 13. Hypothyroidism: Continue home synthroid regimen. 14. BPH: s/p recent 07/28/20 TURP of note, will continue patient home Flomax regimen. 15. GERD: We will maintain on IV PPI as noted above. 16. DVT prophylaxis: SCDs, reversing Coumadin as noted above with INR trending. 17. CODE status: Patient DEVORA is his and living will is currently in [facility]. Discussed CODE status at length including difference between FULL code, DNR-CCA and DNR-CC status. Following discussions about the differences in these status, requested continuation Full Code status. He understands that if anything significant did occur given his underlying history his prognosis may be poor. Advanced Care Planning Face to Face Time: 16 minutes. Charges/Coding Visit Charges Inpatient E&M: 06494 Init Hosp L3 Procedures Hospitalists Procedures: 30548 Advncd Care Plan 30 Min
--- NOTE | 2021-04-25 13:27 | NURSING ---
DR ZEE FOR DR DISLA
--- NOTE | 2021-04-25 13:33 | NURSING ---
PCU [facility] ANEMIA REQUIRING TRANSFUSION
[2021-04-25] MEDS: Phytonadione (Vit K1) 5 MG TABLET PO (13:59)
[2021-04-25 14:08] LABS: Magnesium 2.1 mg/dL (1.6-2.6)
[2021-04-25] MEDS: 0.9% Normal Saline 1,000 ML 75 ML IV (15:11)
[2021-04-25] MEDS: 0.9% Saline Lock 10 ML Syringe IV (15:15)
[2021-04-25 18:25] LABS: Hematocrit 20.6 % (40-54); POSITIVE COUNT YES
[2021-04-25 18:32] LABS: Hemoglobin 5.7 g/dL (13.0-16.5)
[2021-04-25] MEDS: Atorvastatin Calcium 80 MG Tablet PO (20:40)
[2021-04-26] VITALS (23 sets, daily range): BP systolic 100–130; BP diastolic 7–96; PULSE 18–109; RESP 12–18; TEMP 35.9–36.9; O2SAT 94–99; BMI 31.5
[2021-04-26] MEDS: Levothyroxine 125 MCG Tablet PO (05:47)
[2021-04-26 06:45] LABS: Absolute Neutrophil Count 4.6 X10^3/uL (2.0-7.7); Basophil# 0.03 X10^3/uL; Basophil% 0.5 % (0-1); Eosinophil# 0.33 X10^3/uL; Eosinophils% 5.1 % (0-5); Hematocrit 24.7 % (40-54); Hemoglobin 7.3 g/dL (13.0-16.5); Lymphocyte % 13.8 % (19-41); Mean Corp Hgb Conc 29.6 g/dL (32-36); Mean Corpuscular Hgb 23.6 pg (27.0-32.0); Mean Corpuscular Volume 79.9 fL (80-94); Mean Platelet Vol. 12.2 fl (6.2-12.0); Monocyte# 0.62 X10^3/uL; Monocyte% 9.5 % (0-10); NRBC Flagged by Analyzer 0 % (0-5); Neutrophil # 4.62 X10^3/uL (2.7-7.7); Neutrophil % 70.6 % (47-70); Platelet Count 193 K/mm3 (150-450); RBC Distribution Width CV 19.4 % (11.6-14.6); RBC Distribution Width SD 55.8 fl (35.1-43.9); Red Blood Count 3.09 M/mm3 (4.6-6.2); White Blood Count 6.5 K/mm3 (4.4-11.0)
[2021-04-26 06:56] LABS: International Normalized Ratio 1.8; Prothrombin Time (Protime)PT. 19.8 SECONDS (11.7-14.9)
[2021-04-26 07:13] LABS: ALB/GLOB Ratio 0.7 RATIO (0.9-2.4); AST(SGOT) 20 U/L (15-37); Alanine Aminotransfer ALT/SGPT 17 U/L (16-61); Albumin, Serum 2.6 g/dL (3.2-5.0); Alkaline Phosphatase 120 U/L (45-117); Anion Gap 5 (5-15); BUN 35 mg/dL (7-18); BUN/Creat Ratio 28.7 RATIO (10-20); Chloride 109 mmol/L (98-107); Creatinine, Serum 1.22 mg/dL (0.70-1.30); EST Glomerular Filtration Rate 60 mL/min (>60); Est Glom Filt Rate - Afr Amer 73 mL/min (>60); Estimated Creatinine Clearance 48.59 ml/min; Globulin 3.6 g/dL (2.2-4.2); Glucose 85 mg/dL (74-106); Potassium 3.9 mmol/L (3.5-5.1); Protein, Total 6.2 g/dL (6.4-8.2); Sodium Level 141 mmol/L (136-145)
--- NOTE | 2021-04-26 07:26 | PN.HOSP_ITS ---
Subjective Subjective Patient notes feeling significantly improved from day prior with less dyspnea and fatigue. Patient received 2 unit PRBC prior however his repeat hemoglobin this morning is 7.3 and given his underlying cardiac disease discussed with him an additional 1 unit PRBC added with planned H&H following. EGD was performed by gastroenterology with suspicious changes in the esophagus with a short segment of Shaffer's esophagus in the lower third with biopsy performed, localized moderately friable mucosa with contact bleeding in the greater curvature of the stomach, large hiatal hernia, two 5 mm stigmata of recent bleed ing angiectasia's found in the gastric body with coagulation for bleeding prevention with argon plasma instituted, single 50 mm pedunculated polyp with no bleeding stigmata of recent bleeding found in the pylorus with polyp removal, 5 mm nonbleeding diverticulum in the entire examined duodenum, multiple 5 mm angiodysplastic lesions with stigmata of recent bleeding found in the jejunum with coag hemostasis using heater probe with recommendation for continued IV PPI continuous infusion for today with transition to twice daily regimen 04/27/2021 with initiation of misoprostol 200 mcg p.o. 4 times daily for 3 months. Patient denies fevers, chills, nausea, emesis, abdominal pain, chest pain. Objective Data Objective Data Vital Signs: Vital Signs Temp Pulse Resp BP Pulse Ox 97.7 F L 97 14 129/72 H 96 04/26/21 05:49 04/26/21 05:49 04/26/21 05:49 04/26/21 05:49 04/26/21 05:49 Oxygen Delivery Method Room Air Weight: 233 lb 0.458 oz Body Mass Index (BMI) 31.4 Intake & Output: Intake and Output for Last 24 Hours 04/24/21 04/25/21 04/26/21 23:59 23:59 23:59 Intake Total 521.25 / 821.25 860 / 860 Output Total 300 / 575 475 / 475 Balance 221.25 / 246.25 385 / 385 Lab / Micro Data Result Diagrams: 04/26/21 06:26 04/26/21 06:26 Labs: Laboratory Results - last 24 hr 04/25/21 12:33: WBC 8.2, RBC 2.72 L, Hgb 5.8 L*, Hct 20.6 L, MCV 75.7 L, MCH 21.3 L, MCHC 28.2 L, RDW Std Deviation 51.7 H, RDW Coeff of Marcelino 18.7 H, Plt Count 218, MPV 11.4, Differential Comment SCANNED, Diff Path Review September04/25/21 12:33: Sodium 140, Potassium 3.8, Chloride 104, Carbon Dioxide 26.0, Anion Gap 10, BUN 43 H, Creatinine 1.51 H, Estim Creat Clear Calc 39.26, Est GFR (MDRD) Af Amer 57 L, Est GFR (MDRD) Non-Af 47 L, BUN/Creatinine Ratio 28.5 H, Glucose 106, Calcium 9.3 04/25/21 12:33: Blood Type O POSITIVE, Antibody Screen NEGATIVE 04/25/21 12:33: PT 27.6 H, INR 2.7 04/25/21 12:33: Magnesium 2.1 04/25/21 12:33: Crossmatch See Detail 04/25/21 18:19: Hgb 5.7 L*, Hct 20.6 L 04/26/21 06:26: WBC 6.5, RBC 3.09 L, Hgb 7.3 L, Hct 24.7 L, MCV 79.9 L D, MCH 23.6 L, MCHC 29.6 L, RDW Std Deviation 55.8 H, RDW Coeff of Marcelino 19.4 H, Plt Count 193, MPV 12.2 H, Immature Gran % (Auto) 0.500, Neut % (Auto) 70.6 H, Lymph % (Auto) 13.8 L, [place] % (Auto) 9.5, Eos % (Auto) 5.1 H, Baso % (Auto) 0.5, Absolute Neuts (auto) 4.6, Absolute Lymphs (auto) 0.90, Nucleated RBC % 0 04/26/21 06:26: PT 19.8 H, INR 1.8 04/26/21 06:26: Sodium 141, Potassium 3.9, Chloride 109 H, Carbon Dioxide 27.0, Anion Gap 5, BUN 35 H, Creatinine 1.22, Estim Creat Clear Calc 48.59, Est GFR (MDRD) Af Amer 73, Est GFR (MDRD) Non-Af 60, BUN/Creatinine Ratio 28.7 H, Glucose 85, Calcium 9.0, Total Bilirubin 2.20 H, AST 20, ALT 17, Alkaline Phosphatase 120 H, Total Protein 6.2 L, Albumin 2.6 L, Globulin 3.6, Albumin/Globulin Ratio 0.7 L Micro: Microbiology 04/25/21 12:56 Nasal Secretion SARS-CoV-2 Antigen (Rapid) - Final Physical Exam Narrative Physical Examination: General: Awake, alert, oriented x 3 and cooperative, seated upright in the PCU bed, less fatigued appearing, notes feeling improved. Skin: Less pale color, normal turgor, no icterus, no cyanosis. HEENT: AT/NC, EOMI, PERRLA, mildly dry MM. Lungs: Diminished, greater bases, appropriate effort, no rales, ronchi or wheezing. Heart: Irregular rhythm; no gallop, rub audible. Abdomen: Soft, obese, NTTP, ND, mildly hyperactive distant BS. Extremities: No cyanosis, no clubbing, bilateral lower extremity pedal to mid elizondo chronic edema 1-2+. Neurological: Patient awake, alert, oriented as noted, cognitive function intact; pupils equally reactive to light and accommodation, cranial nerves II- XII grossly normal, moving all 4 extremities, no focal deficits, strength moderately to severely global decrease secondary to acute presentation. Psychiatric: Affect appears more normalized, no acute evidence of depressive or anxiety feelings. Assessment & Plan Assessment/Plan (1) Anemia requiring transfusions: (2) SOB (shortness of breath): PLAN: The patient is an 85 y/o M w/ PMHx: Chronic Diastolic CHF, Chronic COPD, Former Tobacco use, Chronic anemia/Fe deficiency anemia, HTN, HLD, GERD w/ Hx GI bleed prior, Hx Colon CA s/p colectomy, PAF s/p cardioversion, Hypothyroidism, CAD s/p CABG x 3, Valvular Heart Disease s/p MV repair, BPH, Hx VTE who presents to the [facility] ED on 04/25/21 with history of progressively worsening dyspnea, worse on week of presentation with CXR and lab work with Hgb 6.0, denied any black stools or bright red blood. 1. Acute on Chronic Anemia/Iron deficiency anemia, Possible GI Bleed, but unclear source, Hx prior Colon CA: Admitted to PCU w/ admission Hgb 5.8, was early in the morning 6 per cardiology office with referral to ED, maintained on IVFs, admission INR 2.7, reversed coagulopathy, 04/26/21 INR 1.8, s/p 2 u PRBC administration, IV PPI. 04/26/21 Hgb 7.3 w/ 1 additional unit PRBC ordered. 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 with biopsy performed, localized moderately friable mucosa with contact bleeding in the greater curvature of the stomach, large hiatal hernia, two 5 mm stigmata of recent bleeding angiectasia's found in the gastric body with coagulation for bleeding prevention with argon plasma instituted, single 50 mm pedunculated polyp with no bleeding stigmata of recent bleeding found in the pylorus with polyp removal, 5 mm nonbleeding diverticulum in the entire examined duodenum, multiple 5 mm angiodysplastic lesions with stigmata of recent bleeding found in the jejunum with coag hemostasis using heater probe with recommendation for continued IV PPI continuous infusion for today as well as octreotide drip. Plan transition to BID PPI 04/27/2021 with initiation of misoprostol 200 mcg p.o. 4 times daily for 3 months at discharge. 2. History of colon cancer: Status post partial colectomy, noted two sections, given presentation some concern, will continue evaluation as noted above. 3. PAF: Status post prior cardioversion, temporarily holding metoprolol given blood pressures decreasing while in the ED in the acute setting of #1, add back metoprolol once appropriate, holding aspirin and reversed coumadin as noted. Cardiology consulted and evaluated patient, agreed with current alterations and they noted due to the risk of GI bleed and worsening of the anemia with anticoagulation Coumadin patient will be a candidate to discuss watchman. 4. CAD: Status post CABG x 3 NEFF to LAD, SVG to Lateral CX, and SVG to PDA 12/25/18 F [facility], holding aspirin, reversing Coumadin given acute presentation #1, temporarily holding metoprolol with resumption once BP improved, continue statin therapy. Not on NILSON inhibitor/ARB. 5. Chronic Diastolic CHF: 02/03/2020 echocardiogram with EF 60%, no evidence diastolic dysfunction, severely enlarged LA, trivial MVI, mild MV stenosis, trivial TVI, mild aortic stenosis, as noted holding aspirin, reversing Coumadin with INR trending, temporarily holding Lasix and metoprolol given low BP but will resume once BP is improved likely following PRBC administration. If necessary may administer IV Lasix in between PRBC and will judiciously hydrate until PRBC available. 6. Carotid disease: History of occluded proximal right carotid and right vertebral with collaterals, as noted holding coumadin w/ reversal given presentation pending evaluation w/ GI again, continue statin, temporarily holding HTN regimen given low normal BP with resumptions once improved. 7. Valvular heart disease: Status post MV repair with Moreno band #29, 02/03/2020 echocardiogram with EF 60%, no evidence diastolic dysfunction, severely enlarged LA, trivial MVI, mild MV stenosis, trivial TVI, mild aortic stenosis. Presume repair following this echocardiogram. 8. Chronic COPD: Not on any routine inhalers, PRN albuterol, HOB, IS parameters. 9. Hypertension: Upon presentation BP low, lasix and BB held with PRBC administration, given 04/26/21 mild BP improvement Cardiology restarting BB therapy. 10. Hx VTE: Given acute presentation reversed given risk to benefit ratio, will await evaluation as noted above for consideration resumption. 11. Former Tobacco use: Encourage continued cessation. 12. Hyperlipidemia: Continue home statin therapy. 13. Hypothyroidism: Continue home synthroid regimen. 14. BPH: s/p recent 07/28/20 TURP of note, will continue patient home Flomax regimen. 15. GERD: IV PPI-->04/26/21 continuous infusion overnight per GI recommendatio n. 16. DVT prophylaxis: SCDs, reversed Coumadin, 04/26/21 INR 1.8. 17. CODE status: Patient DEVORA is his and living will is currently in place. Full Code status. Charges/Coding Visit Charges Inpatient E&M: 00517 Subs Hosp L3
--- NOTE | 2021-04-26 08:20 | NURSING ---
pt off floor for EGD, update called to kerri oleary.
--- NOTE | 2021-04-26 08:36 | CON.PCM.GI_ITS ---
HPI Consult Data Date of Consult: 04/26/21 HPI Narrative HPI Narrative: For the evaluation of worsening fatigue and weakness. He has a history of coronary artery disease status post CABG x3 ,chronic atrial fibrillation status post ablation/cardioversion on antiarrhythmics and anticoagulation, COPD, colon cancer status post segmental colonic resection with primary anastomosis and no chemotherapy or radiation. His last colonoscopy was done back in [address] Hay. No abnormalities were found. He did have a previous history of adenomatous polyps that was found on a colonoscopy in 2013. He suffers from chronic iron deficiency anemia from unknown cause along with anemia chronic disease. He has received multiple blood transfusions and has been on chronic iron and IV iron therapy. He presents this visit with abnormal blood work that showed a hem oglobin of 6. He received 1 unit packed red blood cells and his hemoglobin came up to 7.3. His INR was 2.7 with a PTT of 27.6. He did have an elevated BUN/creatinine ratio also to 43/1.5. I was consulted for management. [facility] Medical History (Updated 04/26/21 @ 08:[address] [place] Friend, DO) Abnormality of gait Acid reflux Allergic rhinitis Anemia Aortic stenosis Atherosclerosis of coronary artery of [place] heart without angina pectoris Blood clots in stool Carotid artery disease Colon cancer COPD (chronic obstructive pulmonary disease) Hyperbilirubinemia Hyperbilirubinemia Hyperlipidemia Hypertension Hypothyroidism (acquired) New onset atrial fibrillation Obesity Paroxysmal atrial fibrillation Pre-operative cardiovascular examination Prostatic hypertrophy Home Medications atorvastatin 80 mg tablet 80 mg PO DAILY 07/14/17 [History Last Taken 04/25/21] coenzyme Q10 100 mg capsule 100 mg PO DAILY 07/14/17 [History Last Taken 04/25/21] aspirin 81 mg tablet,delayed release 81 mg PO DAILY 11/20/18 [History Last Taken 04/25/21] omega-3s 300 [id number]-vrr-other [id number] oil 1,000 mg capsule 1 cap PO DAILY ea 01/19/20 [History Last Taken 04/25/21] ascorbic acid (vitamin C) 500 mg tablet 500 mg PO BID 02/15/20 [History Last Taken 04/25/21] metoprolol succinate 50 mg tablet,extended release 24 hr 50 mg PO DAILY #90 tab 04/05/21 [Rx Last Taken 04/25/21] famotidine 40 mg tablet 40 mg PO DAILY tab 04/25/21 [History Last Taken 04/25/21] furosemide 40 mg tablet 40 mg PO BID@0800,1200 tab 04/25/21 [History Last Taken 04/25/21] levothyroxine 125 mcg PO DAILY 04/25/21 [History Last Taken 04/25/21] warfarin 2.5 mg PO FR 04/25/21 [History Last Taken 04/20/21] warfarin 2.5 mg tablet 5 mg PO SUMOTUWETHSA tab 04/25/21 [History Last Taken 04/24/21] Allergy/AdvReac Type Severity Reaction Status Date / Time adhesive tape Allergy Intermediate dermatitis Verified 04/25/21 11:55 Family History Father , of pneumonia Pneumonia Mother , of CAD CAD (coronary artery disease) Arthritis Sister , Cause unknown Rheumatoid arthritis Oral cancer Sister Arthritis Sister No problems noted. Sister No problems noted. Surgical History (Updated 04/25/21 @ 13:[address] Arely Virgen MD) History of bladder surgery History of cardioversion (05/31/19) History of colectomy History of colonoscopy (09/30/17) History of coronary artery bypass graft x 3 (12/25/18) History of right and left heart catheterization (12/02/18) S/P TURP Status post mitral valve repair (12/25/18) Social History (Updated 04/25/21 @ 13:[address] Arely Virgen MD) household members: spouse Smoking Status: Former smoker quit date: 06/04/96 pack-years: 40 how long ago did patient quit smokin years ago alcohol intake: never substance use type: does not use caffeine: Yes Type: coffee Number of servings: 2 ROS Review of Systems ROS Unobtainable: other Constitutional Constitutional: Denies fatigue, fever(s), poor appetite, weight gain or weight loss ENT HEENT: Denies mouth lesions Cardiovascular Cardiovascular: Denies abdominal bloating, abdominal edema or abdominal pain Respiratory/Chest Respiratory/Chest: Denies change in mental status, change in phlegm color, chest congestion or chest tightness Gastrointestinal Gastrointestinal: Denies belching, bloating, change in bowel habits, change in stool character, chewing difficulty, coffee ground emesis, constipation, cramping, diarrhea, dyspepsia, dysphagia, early satiety, excessive flatus, fecal incontinence, heartburn, hematemesis, hematochezia, hemorrhoids, loose stools, melena, nausea, odynophagia, rectal bleeding, tenesmus, vomiting or weight changes Genitourinary Genitourinary: Denies abdominal discomfort, burning urination or itching Musculoskeletal Musculoskeletal: Reports as per HPI; Denies muscle weakness or myalgias Integumentary Integumentary: Denies jaundice Neurologic Neurologic: Denies lack of coordination or weakness Psychiatric Psychiatric: Denies confusion, depression, memory loss, mood swings, paranoia or suicidal ideation Endocrine Endocrinology: Denies systems reviewed and no addt'l complaints, except as documented Hematologic/Lymphatic Hematologic/Lymphatic: Denies anemia, easy bleeding, easy bruising or lymphadenopathy Allergic/Immunologic Allergic/Immunologic: Denies systems reviewed and no addt'l complaints, except as documented Physical Exam Const alert General Appearance: cooperative Orientation / Consciousness: oriented to person HEENT hearing grossly normal bilaterally Head and Scalp: normal to inspection Face and Sinus: face symmetric Nose: external nose normal Mouth: oral and palatal mucosa normal Eyes conjunctivae normal General Eye: normal appearance of both eyes Neck full ROM General: normal visual inspection Lymph Lymphatic: no lymphadenopathy noted Chest inspection of chest normal and palpation of chest normal Chest: symmetrical chest wall rise Resp normal respiratory effort Effort and Inspection: able to speak in complete sentences Cardio regular rate GI non-distended Percussion: normal to percussion Rectal Exam: deferred Neuro Speech: speech normal Gait (Neuro): normal gait Lab / Micro Data Result Diagrams: 04/26/21 06:26 04/26/21 06:26 Labs: Laboratory Results - last 24 hr 04/25/21 12:33: WBC 8.2, RBC 2.72 L, Hgb 5.8 L*, Hct 20.6 L, MCV 75.7 L, MCH 21.3 L, MCHC 28.2 L, RDW Std Deviation 51.7 H, RDW Coeff of Marcelino 18.7 H, Plt Count 218, MPV 11.4, Differential Comment SCANNED, Diff Path Review September04/25/21 12:33: Sodium 140, Potassium 3.8, Chloride 104, Carbon Dioxide 26.0, Anion Gap 10, BUN 43 H, Creatinine 1.51 H, Estim Creat Clear Calc 39.26, Est GFR (MDRD) Af Amer 57 L, Est GFR (MDRD) Non-Af 47 L, BUN/Creatinine Ratio 28.5 H, Glucose 106, Calcium 9.3 04/25/21 12:33: Blood Type O POSITIVE, Antibody Screen NEGATIVE 04/25/21 12:33: PT 27.6 H, INR 2.7 04/25/21 12:33: Magnesium 2.1 04/25/21 12:33: Crossmatch See Detail 04/25/21 18:19: Hgb 5.7 L*, Hct 20.6 L 04/26/21 06:26: WBC 6.5, RBC 3.09 L, Hgb 7.3 L, Hct 24.7 L, MCV 79.9 L D, MCH 23.6 L, MCHC 29.6 L, RDW Std Deviation 55.8 H, RDW Coeff of Marcelino 19.4 H, Plt Count 193, MPV 12.2 H, Immature Gran % (Auto) 0.500, Neut % (Auto) 70.6 H, Lymph % (Auto) 13.8 L, [place] % (Auto) 9.5, Eos % (Auto) 5.1 H, Baso % (Auto) 0.5, Absolute Neuts (auto) 4.6, Absolute Lymphs (auto) 0.90, Nucleated RBC % 0 04/26/21 06:26: PT 19.8 H, INR 1.8 04/26/21 06:26: Sodium 141, Potassium 3.9, Chloride 109 H, Carbon Dioxide 27.0, Anion Gap 5, BUN 35 H, Creatinine 1.22, Estim Creat Clear Calc 48.59, Est GFR (MDRD) Af Amer 73, Est GFR (MDRD) Non-Af 60, BUN/Creatinine Ratio 28.7 H, Glucose 85, Calcium 9.0, Total Bilirubin 2.20 H, AST 20, ALT 17, Alkaline Phosphatase 120 H, Total Protein 6.2 L, Albumin 2.6 L, Globulin 3.6, Albumin/Kacy bulin Ratio 0.7 L Micro: Microbiology 04/25/21 12:56 Nasal Secretion SARS-CoV-2 Antigen (Rapid) - Final Assessment & Plan Assessment/Plan (1) Anemia: QUALIFIERS: Anemia type: unspecified type Qualified Code(s): D64.9 - Anemia, unspecified PLAN: I suspect that he does have some form of slow GI bleed in the setting of anticoagulation for atrial fibrillation. He should undergo an upper endoscopy. If nothing is found on the upper endoscopy then he should undergo colonoscopy and capsule endoscopy. Thank you very much for allowing me to precipitate in the care of his patient. (2) Colon cancer: QUALIFIERS: Colon location: unspecified part of colon Qualified Code(s): C18.9 - Malignant neoplasm of colon, unspecified PLAN: Patient had a normal colonoscopy in 2018. This is still be repeated because of the worsening anemia. (3) Hyperbilirubinemia: PLAN: His bilirubin is 2.2 and a previous fractionation of the bilirubin when it was elevated did show that it was mostly indirect bilirubin. I will check an LDH and also a Christo test to make sure he is not having any elements of hemolysis in the setting of anticoagulation. Charges/Coding Visit Charges Inpatient E&M: 62373 Init Hosp L3
--- NOTE | 2021-04-26 09:05 | EGD_PTH ---
PATIENT: JOSE CHAWLA LOC: [facility] U#:[id number] AGE/SX: 85/M ROOM: [facility] RE04/25/[address]: Dr. Arely Virgen MD : 1935 BED: 1 DIS: 04/27/2021 SPEC #: [id number] RECD: 04/26/21 10:30 STATUS: [place] #: [id number] LORIN: 04/26/21 09:[address]: Stanislav Brewster DEPT: SURGICAL PATHOLOGY RECD BY: Ernesto Lackey ENTERED: 04/27/21 09:36 SP TYPE: EGD BIOPSY [facility] DR: MD Dr. Kevin Wiley MD Dr. Farouk Belal, MD Tissues: A - Gastric mucous membrane B - Esophagus, NOS Procedures: Surgery Specimen Level IV HEADER OPERATION: EGD PRE-OP DIAGNOSIS: Anemia, colon cancer, hyperbilirubinemia TISSUE SUBMITTED: A. Gastric polyp, B. Distal esophagus MICROSCOPIC DIAGNOSIS A. Gastric polyp, biopsy: Hyperplastic/inflammatory polyp B. Distal esophagus, biopsy: Fragments of gastroesophageal mucosa with chronic inflammation. Intestinal metaplasia (goblet cell metaplasia) not identified. See comment. NUHA 04/30/21 COMMENT B. Alcian blue/PAS stain with matched control is used in the evaluation of the specimen. MICROSCOPIC DESCRIPTION Slides are reviewed. GROSS DESCRIPTION A. Received is one container labeled with the patient name and designated gastric polyp. The specimen consists of a baker pink polyp that measures 0.7 x 0.7 x 0.6 cm. Apparent base is inked and it is bisected and totally submitted in one cassette. B. Received is one container labeled with the patient name and designated esophagus. The specimen consists of two irregular fragments of light baker soft tissue that in aggregate measure 0.4 x 0.2 x 0.1 cm. The specimen is totally submitted in one cassette. /NUHA:galen 04/27/21 TC:5 [facility]: [id number] x2, [id number]
--- NOTE | 2021-04-26 09:48 | OP.EGD_ITS ---
Patient Name: Yo Bradley Procedure Date: 04/26/2021 8:41 AM Date of : 1935 Age: 85 Procedure: Upper GI endoscopy Indications: Suspected upper gastrointestinal bleeding Providers: Stanislav Brewster DO Medicines: See the Anesthesia note for documentation of the administered medications Patient Profile: This is an 85 year old male. Refer to note in patient chart for documentation of history and physical. Patient has symptoms of chronic nausea. He is status post colonoscopy (normal) three years ago. Complications: No immediate complications. Procedure: Pre-Anesthesia Assessment: - Prior to the procedure, a History and Physical was performed, and patient medications and allergies were reviewed. The patient is competent. The risks and benefits of the procedure and the sedation options and risks were discussed with the patient. All questions were answered and informed consent was obtained. Patient identification and proposed procedure were verified by the physician in the pre-procedure area. Mental Status Examination: alert and oriented. Airway Examination: normal oropharyngeal airway and neck mobility. Respiratory Examination: clear to auscultation. CV Examination: normal. Prophylactic Antibiotics: The patient does not require prophylactic antibiotics. Prior Anticoagulants: The patient has taken no previous anticoagulant or antiplatelet agents. ASA Grade Assessment: II - A patient with mild systemic disease. After reviewing the risks and benefits, the patient was deemed in satisfactory condition to undergo the procedure. The anesthesia plan was to use moderate sedation / analgesia (conscious sedation). Immediately prior to administration of medications, the patient was re-assessed for adequacy to receive sedatives. The heart rate, respiratory rate, oxygen saturations, blood pressure, adequacy of pulmonary ventilation, and response to care were monitored throughout the procedure. The physical status of the patient was re-assessed after the procedure. After obtaining informed consent, the endoscope was passed under direct vision. Throughout the procedure, the patient's blood pressure, pulse, and oxygen saturations were monitored continuously. The Colonoscope was introduced through the and advanced to the. The gastroscope was introduced through the mouth, and advanced to the jejunum. The upper GI endoscopy was accomplished without difficulty. The patient tolerated the procedure well. Moderate Sedation: Moderate (conscious) sedation was administered by the endoscopy nurse and supervised by the endoscopist. The patient's oxygen saturation, heart rate, blood pressure and response to care were monitored. Total physician intraservice time was 15 minutes. 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 The maximum longitudinal extent of these mucosal changes was 3 cm in length. Mucosa was biopsied with a cold forceps for histology in 4 quadrants at intervals of 1 cm in the lower third of the esophagus. A total of 3 specimen bottles were sent to pathology. Verification of patient identification for the specimen was done. Estimated blood loss was minimal. Localized moderately friable mucosa with contact bleeding was found on the greater curvature of the stomach. A large hiatal hernia was present. Two 5 mm stigmata of recent bleeding angioectasias were found in the gastric body. Coagulation for bleeding prevention using argon plasma at 0.3 liters/minute and 20 angulo was successful. Estimated blood loss was minimal. A single 15 mm pedunculated polyp with no bleeding and stigmata of recent bleeding was found at the pylorus. The polyp was removed with a hot snare. Resection and retrieval were complete. Verification of patient identification for the specimen was done. Estimated blood loss was minimal. A 5 mm non-bleeding diverticulum was found in the entire examined duodenum. Multiple 5 mm angiodysplastic lesions with stigmata of recent bleeding were found in the jejunum. Coagulation for hemostasis using heater probe was successful. Estimated blood loss was minimal. 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 Biopsied. - Friable gastric mucosa. - Large hiatal hernia and a single Andre's erosion that was seen in the hiatal hernia that was treated with APC. - Two recently bleeding angioectasias in the stomach. Treated with argon plasma coagulation (APC). - A single gastric polyp. Resected and retrieved. - Non-bleeding duodenal diverticulum. 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 Treated with a heater probe. Recommendation: - [facility]. - Use a proton pump inhibitor IV [duration]. - Give Protonix (pantoprazole): initiate therapy with 80 mg IV bolus, then 8 mg/hr IV by continuous infusion today. - Use misoprostol 200 micrograms PO QID for 3 months. - Continue present medications. Procedure Code(s): --- Professional --- 73621, 59, Esophagogastroduodenoscopy, flexible, transoral; with control of bleeding, any method 67269, Esophagogastroduodenoscopy, flexible, transoral; with removal of tumor(s), polyp(s), or other lesion(s) by snare technique 69761, 59, Esophagogastroduodenoscopy, flexible, transoral; with biopsy, single or multiple 57328, 59, Moderate sedation services provided by the same physician or other qualified health foster care social worker performing the diagnostic or therapeutic service that the sedation supports, requiring the presence of an independent trained observer to assist in the monitoring of the patient's level of consciousness and physiological status; initial 15 minutes of intraservice time, patient age 5 years or older Diagnosis Code(s): --- Professional --- K22.8, Other specified diseases of esophagus K31.89, Other diseases of stomach and duodenum K44.9, Diaphragmatic hernia without obstruction or gangrene K31.811, Angiodysplasia of stomach and duodenum with bleeding K31.7, Polyp of stomach and duodenum K55.21, Angiodysplasia of colon with hemorrhage K57.10, Diverticulosis of small intestine without perforation or abscess without bleeding CPT copyright 2017 [employer]. All rights reserved. The codes documented in this report are preliminary and upon medical biller/coder review may be revised to meet current compliance requirements. Stanislav Brewster DO 04/26/2021 9:48:01 AM This report has been signed electronically. Number of Addenda: 1 Note Initiated On: 04/26/2021 8:41 AM Addendum Number: 1 Addendum Date: 02/01/2022 6:35:02 AM MAC was used instead of moderate sedation for this patient. Stanislav Brewster DO 02/01/2022 6:35:10 AM This report has been signed electronically.
--- NOTE | 2021-04-26 10:53 | CON.PCM.CA_ITS ---
Assessment & Plan Assessment/Plan (1) Acute on chronic anemia: (2) Chronic renal insufficiency: (3) Anemia requiring transfusions: (4) SOB (shortness of breath): (5) Atherosclerosis of coronary artery of [place] heart without angina pectoris: QUALIFIERS: Coronary Disease-Associated Artery/Lesion type: [place] artery Qualified Code(s): I25.10 - Atherosclerotic heart disease of [place] coronary artery without angina pectoris (6) Status post mitral valve repair: (7) History of coronary artery bypass graft x 3: (8) History of right and left heart catheterization: (9) Hyperlipidemia: QUALIFIERS: Hyperlipidemia type: unspecified Qualified Code(s): E78.5 - Hyperlipidemia, unspecified (10) Hypertension: QUALIFIERS: Hypertension type: essential hypertension Qualified Code(s): I10 - Essential (primary) hypertension (11) COPD (chronic obstructive pulmonary disease): QUALIFIERS: COPD type: unspecified COPD Qualified Code(s): J44.9 - Chronic obstructive pulmonary disease, unspecified (12) Colon cancer: QUALIFIERS: Colon location: unspecified part of colon Qualified Code(s): C18.9 - Malignant neoplasm of colon, unspecified (13) Atrial fibrillation with rapid ventricular response: PLAN: 85-year-old patient with multiple medical comorbidities Admitted with severe anemia requiring blood transfusion initial hemoglobin 5.8 today hemoglobin 7.3. And underwent evaluation by GI From cardiac standpoint he had extensive cardiac history with history of CAD s/p CABG x3 as well had a history of valvular heart disease with mitral valve repair Known history of paroxysmal atrial fibrillation was on rate control using beta- mack metoprolol as well he was on warfarin noted INR therapeutic on admission 2.7 however he had GI bleed with the findings revealed angiodysplasia. Patient has a prior cardioversion history of chronic diastolic heart failure the echocardiographic evaluation LV function is preserved ejection fraction of 60% had severely enlarged left atrium and a mild aortic stenosis. On prior echocardiogram Other medical problem include history of carotid artery disease with occluded proximal right carotid and right vertebral arteries with collaterals cardiac assessment and recommendation; 1. I agree with the current plan of medical treatment with holding of the Coumadin until he complete GI evaluation Also today noted his blood pressure systolic around 110 mmHg and will resume the rate control using beta-mack 2. Due to the risk of GI bleed and worsening of the anemia with anticoagulation Coumadin patient will be a candidate to discuss watchman. We reviewed the operative report from the previous bypass surgery if there was any left atrial appendage occlusion has been performed there is no report of surgical left atrial appendage occlusion in records. 3. We will continue to monitor and follow-up clinically HPI Consult Data Date of Consult: 04/26/21 HPI Narrative Reason for Consultation: CAD status post CABG, MVR, paroxysmal atrial fibrillation, anemia HPI Narrative: JOSE CHAWLA, is a 85 M who presents [facility] Medical History (Updated 04/26/21 @ 08:[address] [place] Friend, DO) Abnormality of gait Acid reflux Allergic rhinitis Anemia Aortic stenosis Atherosclerosis of coronary artery of [place] heart without angina pectoris Blood clots in stool Carotid artery disease Colon cancer COPD (chronic obstructive pulmonary disease) Hyperbilirubinemia Hyperbilirubinemia Hyperlipidemia Hypertension Hypothyroidism (acquired) New onset atrial fibrillation Obesity Paroxysmal atrial fibrillation Pre-operative cardiovascular examination Prostatic hypertrophy Home Medications atorvastatin 80 mg tablet 80 mg PO DAILY 07/14/17 [History Last Taken 04/25/21] coenzyme Q10 100 mg capsule 100 mg PO DAILY 07/14/17 [History Last Taken 04/25/21] aspirin 81 mg tablet,delayed release 81 mg PO DAILY 11/20/18 [History Last Taken 04/25/21] omega-3s 300 ur-noq-bxa-other [id number]-gwal oil 1,000 mg capsule 1 cap PO DAILY ea 01/19/20 [History Last Taken 04/25/21] ascorbic acid (vitamin C) 500 mg tablet 500 mg PO BID 02/15/20 [History Last Taken 04/25/21] metoprolol succinate 50 mg tablet,extended release 24 hr 50 mg PO DAILY #90 tab 04/05/21 [Rx Last Taken 04/25/21] famotidine 40 mg tablet 40 mg PO DAILY tab 04/25/21 [History Last Taken 04/25/21] furosemide 40 mg tablet 40 mg PO BID@0800,1200 tab 04/25/21 [History Last Taken 04/25/21] levothyroxine 125 mcg PO DAILY 04/25/21 [History Last Taken 04/25/21] warfarin 2.5 mg PO FR 04/25/21 [History Last Taken 04/20/21] warfarin 2.5 mg tablet 5 mg PO SUMOTUWETHSA tab 04/25/21 [History Last Taken 04/24/21] Allergy/AdvReac Type Severity Reaction Status Date / Time adhesive tape Allergy Intermediate dermatitis Verified 04/25/21 11:55 Family History Father , of pneumonia Pneumonia Mother , of CAD CAD (coronary artery disease) Arthritis Sister , Cause unknown Rheumatoid arthritis Oral cancer Sister Arthritis Sister No problems noted. Sister No problems noted. Surgical History (Updated 04/25/21 @ 13:[address] Arely Virgen MD) History of bladder surgery History of cardioversion (05/31/19) History of colectomy History of colonoscopy (09/30/17) History of coronary artery bypass graft x 3 (12/25/18) History of right and left heart catheterization (12/02/18) S/P TURP Status post mitral valve repair (12/25/18) Social History (Updated 04/25/21 @ 13:[address] Arely Virgen MD) household members: spouse Smoking Status: Former smoker quit date: 06/04/96 pack-years: 40 how long ago did patient quit smokin years ago alcohol intake: never substance use type: does not use caffeine: Yes Type: coffee Number of servings: 2 Physical Exam Narrative Patient seen evaluated at bedside along with the nursing staff He is alert orientated x3 He underwent EGD today Cardiovascular examination; review of telemetry underlying is atrial fibrillation with controlled ventricular rate S1-S2 is regular, review of the telemetry showing underlying A. fib with controlled ventricular rate. Chest examination is clear to auscultation bilateral Central nervous system exam no focal logical deficit. Risk Stratification Risk Stratification Applicable: No Objective Data Vital Signs: Vital Signs Temp Pulse Resp BP Pulse Ox 96.6 F L 94 16 110/66 97 04/26/21 10:05 04/26/21 10:05 04/26/21 10:05 04/26/21 10:05 04/26/21 10:05 Oxygen Flow Rate (L/min) 1 Oxygen Delivery Method Room Air Weight: 233 lb 0.458 oz Body Mass Index (BMI) 31.5 Intake & Output: Intake and Output for Last 24 Hours 04/24/21 04/25/21 04/26/21 23:59 23:59 23:59 Intake Total 521.25 / 821.25 860 / 860 Output Total 300 / 575 675 / 675 Balance 221.25 / 246.25 185 / 185 Lab / Micro Data Result Diagrams: 04/26/21 06:26 04/26/21 06:26 Labs: Laboratory Results - last 24 hr 04/25/21 12:33: WBC 8.2, RBC 2.72 L, Hgb 5.8 L*, Hct 20.6 L, MCV 75.7 L, MCH 21.3 L, MCHC 28.2 L, RDW Std Deviation 51.7 H, RDW Coeff of Marcelino 18.7 H, Plt Count 218, MPV 11.4, Differential Comment SCANNED, Diff Path Review September04/25/21 12:33: Sodium 140, Potassium 3.8, Chloride 104, Carbon Dioxide 26.0, Anion Gap 10, BUN 43 H, Creatinine 1.51 H, Estim Creat Clear Calc 39.26, Est GFR (MDRD) Af Amer 57 L, Est GFR (MDRD) Non-Af 47 L, BUN/Creatinine Ratio 28.5 H, Glucose 106, Calcium 9.3 04/25/21 12:33: Blood Type O POSITIVE, Antibody Screen NEGATIVE 04/25/21 12:33: PT 27.6 H, INR 2.7 04/25/21 12:33: Magnesium 2.1 04/25/21 12:33: Crossmatch See Detail 04/25/21 12:33: Crossmatch See Detail 04/25/21 18:19: Hgb 5.7 L*, Hct 20.6 L 04/26/21 06:26: WBC 6.5, RBC 3.09 L, Hgb 7.3 L, Hct 24.7 L, MCV 79.9 L D, MCH 23.6 L, MCHC 29.6 L, RDW Std Deviation 55.8 H, RDW Coeff of Marcelino 19.4 H, Plt Count 193, MPV 12.2 H, Immature Gran % (Auto) 0.500, Neut % (Auto) 70.6 H, Lymph % (Auto) 13.8 L, [place] % (Auto) 9.5, Eos % (Auto) 5.1 H, Baso % (Auto) 0.5, Absolute Neuts (auto) 4.6, Absolute Lymphs (auto) 0.90, Nucleated RBC % 0 04/26/21 06:26: PT 19.8 H, INR 1.8 04/26/21 06:26: Sodium 141, Potassium 3.9, Chloride 109 H, Carbon Dioxide 27.0, Anion Gap 5, BUN 35 H, Creatinine 1.22, Estim Creat Clear Calc 48.59, Est GFR (MDRD) Af Amer 73, Est GFR (MDRD) Non-Af 60, BUN/Creatinine Ratio 28.7 H, Glucose 85, Calcium 9.0, Total Bilirubin 2.20 H, AST 20, ALT 17, Alkaline Phosphatase 120 H, Total Protein 6.2 L, Albumin 2.6 L, Globulin 3.6, Albumin/Globulin Ratio 0.7 L Micro: Microbiology 04/25/21 12:56 Nasal Secretion SARS-CoV-2 Antigen (Rapid) - Final Cardiology Labs/Tests 04/25/21 12:33: WBC 8.2, RBC 2.72 L, Hgb 5.8 L*, Hct 20.6 L, MCV 75.7 L, MCH 21.3 L, MCHC 28.2 L, Plt Count 218, MPV 11.4 04/25/21 12:33: Sodium 140, Potassium 3.8, Chloride 104, Carbon Dioxide 26.0, Anion Gap 10, BUN 43 H, Creatinine 1.51 H, Est GFR (MDRD) Af Amer 57 L, Est GFR (MDRD) Non-Af 47 L, BUN/Creatinine Ratio 28.5 H, Glucose 106, Calcium 9.3 04/25/21 12:33: PT 27.6 H, INR 2.7 04/25/21 12:33: Magnesium 2.1 04/25/21 18:19: Hgb 5.7 L*, Hct 20.6 L 04/26/21 06:26: WBC 6.5, RBC 3.09 L, Hgb 7.3 L, Hct 24.7 L, MCV 79.9 L D, MCH 23.6 L, MCHC 29.6 L, Plt Count 193, MPV 12.2 H, Immature Gran % (Auto) 0.500, Neut % (Auto) 70.6 H, Lymph % (Auto) 13.8 L, [place] % (Auto) 9.5, Eos % (Auto) 5.1 H, Baso % (Auto) 0.5, Absolute Neuts (auto) 4.6, Nucleated RBC % 0 04/26/21 06:26: PT 19.8 H, INR 1.8 04/26/21 06:26: Sodium 141, Potassium 3.9, Chloride 109 H, Carbon Dioxide 27.0, Anion Gap 5, BUN 35 H, Creatinine 1.22, Est GFR (MDRD) Af Amer 73, Est GFR (MDRD) Non-Af 60, BUN/Creatinine Ratio 28.7 H, Glucose 85, Calcium 9.0, Total Bilirubin 2.20 H Rhythm: A. fib with controlled ventricular rate.
[2021-04-26] MEDS: 0.9% Normal Saline 1,000 ML 75 ML IV (10:54)
[2021-04-26] MEDS: 0.9% Saline Lock 10 ML Syringe IV ×2 (11:29→17:16)
[2021-04-26] MEDS: miSOPROStol 50 MCG TABLET 100 MCG PO ×4 (11:39→20:19)
[2021-04-26 18:57] LABS: Hematocrit 27.9 % (40-54); Hemoglobin 8.5 g/dL (13.0-16.5)
[2021-04-26] MEDS: Atorvastatin Calcium 80 MG Tablet PO (20:20)
[2021-04-27] MEDS: 0.9% Normal Saline 1,000 ML 75 ML IV (00:17)
[2021-04-27 02:53] VITALS: BP 134/78; PULSE 93; RESP 20; TEMP 36.7; O2SAT 95
[2021-04-27 02:54] VITALS: PULSE 118
[2021-04-27] MEDS: Levothyroxine 125 MCG Tablet PO (05:59)
--- NOTE | 2021-04-27 06:49 | PN.HOSP_ITS ---
Subjective Subjective Patient overnight with no acute events per self nursing report. Patient only complaint is that he did not sleep well as his pump kept going off. Discussed patient with GI this morning and patient has been transitioned to oral Protonix from continuous drip, octreotide discontinued and patient initiated on oral Thor Prost all regimen. Patient eager for discharge. Patient denies any lightheadedness or dizziness. Patient notes dyspnea has significantly improved as well. Patient denies fevers, chills, nausea, emesis, abdominal pain, chest pain. Objective Data Objective Data Vital Signs: Vital Signs Temp Pulse Resp BP Pulse Ox 98.1 F 118 H 20 H 134/78 H 95 04/27/21 02:53 04/27/21 02:54 04/27/21 02:53 04/27/21 02:53 04/27/21 02:53 Oxygen Flow Rate (L/min) 2 Oxygen Delivery Method Nasal Cannula Weight: 238 lb 8.642 oz Body Mass Index (BMI) 31.5 Intake & Output: Intake and Output for Last 24 Hours 04/25/21 04/26/21 04/27/21 23:59 23:59 23:59 Intake Total 521.25 / 821.25 2071.42 / 2071.42 1312.59 / 1312.59 Output Total 300 / 575 1075 / 1075 325 / 325 Balance 221.25 / 246.25 996.42 / 996.42 987.59 / 987.59 Lab / Micro Data Result Diagrams: 04/26/21 18:47 04/26/21 06:26 Labs: Laboratory Results - last 24 hr 04/25/21 12:33: Crossmatch See Detail 04/26/21 06:26: WBC 6.5, RBC 3.09 L, Hgb 7.3 L, Hct 24.7 L, MCV 79.9 L D, MCH 23.6 L, MCHC 29.6 L, RDW Std Deviation 55.8 H, RDW Coeff of Marcelino 19.4 H, Plt Count 193, MPV 12.2 H, Immature Gran % (Auto) 0.500, Neut % (Auto) 70.6 H, Lymph % (Auto) 13.8 L, [place] % (Auto) 9.5, Eos % (Auto) 5.1 H, Baso % (Auto) 0.5, Absolute Neuts (auto) 4.6, Absolute Lymphs (auto) 0.90, Nucleated RBC % 0 04/26/21 06:26: PT 19.8 H, INR 1.8 04/26/21 06:26: Sodium 141, Potassium 3.9, Chloride 109 H, Carbon Dioxide 27.0, Anion Gap 5, BUN 35 H, Creatinine 1.22, Estim Creat Clear Calc 48.59, Est GFR (MDRD) Af Amer 73, Est GFR (MDRD) Non-Af 60, BUN/Creatinine Ratio 28.7 H, Glucose 85, Calcium 9.0, Total Bilirubin 2.20 H, AST 20, ALT 17, Alkaline Phosphatase 120 H, Total Protein 6.2 L, Albumin 2.6 L, Globulin 3.6, Albumin /Globulin Ratio 0.7 L 04/26/21 18:47: Hgb 8.5 L, Hct 27.9 L Micro: Microbiology 04/25/21 12:56 Nasal Secretion SARS-CoV-2 Antigen (Rapid) - Final Physical Exam Narrative Physical Examination: General: Awake, alert, oriented x 3 and cooperative, seated upright in the PCU bed, fatigued, notes he did not sleep well. Skin: Less pale color, normal turgor, no icterus, no cyanosis. HEENT: AT/NC, EOMI, PERRLA, MMM. Lungs: Diminished, greater bases, appropriate effort, no rales, ronchi or wheezing. Heart: Irregular rhythm; no gallop, rub audible. Abdomen: Soft, obese, NTTP, ND, normalized BS. Extremities: No cyanosis, no clubbing, bilateral lower extremity pedal to mid elizondo chronic edema 1-2+. Neurological: Patient awake, alert, oriented as noted, cognitive function intact ; pupils equally reactive to light and accommodation, cranial nerves II-XII grossly normal, moving all 4 extremities, no focal deficits, strength improved, moderately global decrease. Psychiatric: Affect appears fatigued, no acute evidence of depressive or anxiety feelings. Assessment & Plan Assessment/Plan (1) Anemia requiring transfusions: (2) SOB (shortness of breath): PLAN: The patient is an 85 y/o M w/ PMHx: Chronic Diastolic CHF, Chronic COPD, Former Tobacco use, Chronic anemia/Fe deficiency anemia, HTN, HLD, GERD w/ Hx GI bleed prior, Hx Colon CA s/p colectomy, PAF s/p cardioversion, Hypothy roidism, CAD s/p CABG x 3, Valvular Heart Disease s/p MV repair, BPH, Hx VTE who presents to the [facility] ED on 04/25/21 with history of progressively worsening dyspnea, worse on week of presentation with CXR and lab work with Hgb 6.0, denied any black stools or bright red blood. 1. Acute on Chronic Anemia/Iron deficiency anemia, Possible GI Bleed, but unclear source, Hx prior Colon CA: Admitted to PCU w/ admission Hgb 5.8, was early in the morning 6 per cardiology office with referral to ED, maintained on IVFs, admission INR 2.7, reversed coagulopathy, 04/26/21 INR 1.8, s/p 2 u PRBC administration, IV PPI. 04/26/21 Hgb 7.3 w/ 1 additional unit PRBC ordered-->04/27/21 Hgb 8.5. 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 with biopsy performed, localized moderately friable mucosa with contact bleeding in the greater curvature of the stomach, large hiatal hernia, two 5 mm stigmata of recent bleeding angiectasia's found in the gastric body with coagulation for bleeding prevention with argon plasma instituted, single 50 mm pedunculated polyp with no bleeding stigmata of recent bleeding found in the pylorus with polyp removal, 5 mm nonbleeding diverticulum in the entire examined duodenum, multiple 5 mm angiodysplastic lesions with stigmata of recent bleeding found in the jejunum with coag hemostasis using heater probe with recommendation for continued IV PPI continuous infusion as well as octreotide drip x24 hours. 04/27/2021 transition patient to oral misoprostol 200 mcg 4 times daily, Protonix 40 mg twice daily and discontinued IV PPI infusion as well as octreotide drip. Per discussion with gastroenterology will plan follow-up in 1 week with potential initiation of baby aspirin at 2 weeks with complete discontinuation of Coumadin. We will plan follow-up also with car diology in 1 week to review options given unable to be on Coumadin. 2. History of colon cancer: Status post partial colectomy, noted two sections, given presentation some concern, will continue evaluation as noted above. 3. PAF: Status post prior cardioversion, temporarily holding metoprolol given blood pressures decreasing while in the ED in the acute setting of #1, add back metoprolol once appropriate, holding aspirin and reversed coumadin as noted. Cardiology consulted and evaluated patient, agreed with current alterations and they noted due to the risk of GI bleed and worsening of the anemia with anticoagulation Coumadin patient will be a candidate to discuss watchman. We will plan follow-up with cardiology in 1 week following discharge. 4. CAD: Status post CABG x 3 NEFF to LAD, SVG to Lateral CX, and SVG to PDA 12/25/18 [facility], holding aspirin with potential restart in 2 weeks per gastroenterology, Coumadin reversed and discontinued, maintained on metoprolol and statin therapy. Not on NILSON inhibitor/ARB. 5. Chronic Diastolic CHF: 02/03/2020 echocardiogram with EF 60%, no evidence diastolic dysfunction, severely enlarged LA, trivial MVI, mild MV stenosis, trivial TVI, mild aortic stenosis, as noted holding aspirin with plan x 2-week, Coumadin reversed and will be discontinued, restarted metoprolol and Lasix given BP improvement following PRBC administration. 6. Carotid disease: History of occluded proximal right carotid and right vertebral with collaterals, as noted reversed and discontinued coumadin, continue statin, restarted hypertensive regimen given BP improvement. 7. Valvular heart disease: Status post MV repair with [place] band #29, 02/03/2020 echocardiogram with EF 60%, no evidence diastolic dysfunction, severely enlarged LA, trivial MVI, mild MV stenosis, trivial TVI, mild aortic stenosis. Presume repair following this echocardiogram. 8. Chronic COPD: Not on any routine inhalers, PRN albuterol, HOB, IS parameters. 9. Hypertension: Upon presentation BP low, BP regimen temporarily held however improved with PRBC administration, resumed Lasix and metoprolol. 10. Hx VTE: Given acute presentation reversed given risk to benefit ratio, remote history. 11. Former Tobacco use: Encourage continued cessation. 12. Hyperlipidemia: Continue home statin therapy. 13. Hypothyroidism: Continue home synthroid regimen. 14. BPH: s/p recent 07/28/20 TURP of note, will continue patient home Flomax regimen. 15. GERD: IV PPI-->04/26/21 continuous infusion overnight per GI recommendation, 04/27/2021 restarted Protonix oral 40 mg twice daily. 16. DVT prophylaxis: SCDs, reversed Coumadin. 17. CODE status: Patient HCPOA is his and living will is currently in place. Full Code status. Charges/Coding Visit Charges Inpatient E&M: 14912 Subs Hosp L2
[2021-04-27 07:00] VITALS: PULSE 96
[2021-04-27 08:30] VITALS: BP 118/70; PULSE 100; RESP 16; TEMP 36.8; O2SAT 95
[2021-04-27 08:36] VITALS: PULSE 100
[2021-04-27] MEDS: miSOPROStol 50 MCG TABLET 100 MCG PO (08:36)
[2021-04-27] MEDS: Metoprolol(XL)Succ 50 MG Tablet PO (08:36)
--- NOTE | 2021-04-27 11:06 | PCM.DC.SUM ---
Providers Date of Admission: 04/25/21 Primary Care Physician: Dr. Kevin Boogie MD Consultations 04/25/21 14:19 Consult: Gastroenterology Routine Consulting Provider: [facility] Reason for Consult: Acute on Chronic anemia, Hx Colon CA, unclear if GI bleed source EMERGENT Consult: No Notified: Yes Date Notified: 04/25/21 Time Notified: 13:33 Method of Notification: cortext 04/26/21 07:29 Consult: Cardiology Routine Consulting Provider: Conor Rand Reason for Consult: Admit w/ GI bleed, acute anemia, sent per Cardio, cardio notable hx EMERGENT Consult: No Notified: Yes Date Notified: 04/26/21 Time Notified: 07:29 Method of Notification: Text Reason For Visit: ACUTE ON CHRONIC ANEMIA, ? GI SOURCE Diagnosis Discharge Diagnosis (1) Anemia requiring transfusions: Status: Acute Code(s): D64.9 - Anemia, unspecified (2) SOB (shortness of breath): Status: Acute Code(s): R06.02 - Shortness of breath Plan: DISCHARGE DIAGNOSES: 1. 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 History of colon cancer 3. PAF 4. CAD status post CABG x 3 NEFF to LAD, SVG to Lateral CX, and SVG to PDA 12/25/18 [facility] 5. Chronic Diastolic CHF 6. Carotid disease 7. Valvular heart disease 8. Chronic COPD 9. Hypertension 10. Former Tobacco use 11. Hyperlipidemia 12. Hypothyroidism 13. BPH s/p recent 07/28/20 [facility] 14. GERD Medications at Discharge Home Medications atorvastatin 80 mg tablet 80 mg PO DAILY 07/14/17 coenzyme Q10 100 mg capsule 100 mg PO DAILY 07/14/17 aspirin 81 mg tablet,delayed release 81 mg PO DAILY 11/20/18 omega-3s 300 wg-fyr-nou-other [id number] oil 1,000 mg capsule 1 cap PO DAILY ea 01/19/20 ascorbic acid (vitamin C) 500 mg tablet 500 mg PO BID 02/15/20 metoprolol succinate 50 mg tablet,extended release 24 hr 50 mg PO DAILY #90 tab 04/05/21 furosemide 40 mg tablet 40 mg PO BID@0800,1200 tab 04/25/21 levothyroxine 125 mcg PO DAILY 04/25/21 misoprostol 200 mcg PO 4X/DAY 30 Days #120 tab 04/27/21 pantoprazole 40 mg PO BID 30 Days #60 tab 04/27/21 Hospital Course Operations None Procedures EGD Summary of Care Provided Minutes Spent on Discharge: 35 Hospital Course: The patient is an 85 y/o M w/ PMHx: Chronic Diastolic CHF, Chronic COPD, Former Tobacco use, Chronic anemia/Fe deficiency anemia, HTN, HLD, GERD w/ Hx GI bleed prior, Hx Colon CA s/p colectomy, PAF s/p cardioversion, Hypothyroidism, CAD s/p CABG x 3, Valvular Heart Disease s/p MV repair, BPH, Hx VTE who presented to the [facility] ED on 04/25/21 with history of progressively worsening dyspnea, worse on week of presentation with CXR and lab work with Hgb 6.0, denied any black stools or bright red blood. Admitted to PCU w/ admission Hgb 5.8, was early in the morning 6 per cardiology office with referral to ED, maintained on IVFs, admission INR 2.7, reversed coagulopathy, 04/26/21 INR 1.8, s/p 2 u PRBC administration, IV PPI. 04/26/21 Hgb 7.3 w/ 1 additional unit PRBC ordered-->04/27/21 Hgb 8.5. 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 with biopsy performed, localized moderately friable mucosa with contact bleeding in the greater curvature of the stomach, large hiatal hernia, two 5 mm stigmata of recent bleeding angiectasia's found in the gastric body with coagulation for bleeding prevention with argon plasma instituted, single 50 mm pedunculated polyp with no bleeding stigmata of recent bleeding found in the pylorus with polyp removal, 5 mm nonbleeding diverticulum in the entire examined duodenum, multiple 5 mm angiodysplastic lesions with stigmata of recent bleeding found in the jejunum with coag hemostasis using heater probe with recommendation for continued IV PPI continuous infusion as well as octreotide drip x24 hours. 04/27/2021 transition patient to oral misoprostol 200 mcg 4 times daily, Protonix 40 mg twice daily and discontinued IV PPI infusion as well as octreotide drip. Per discussion with gastroenterology will plan follow-up in 1 week with potential initiation of baby aspirin at 2 weeks with complete discontinuation of Coumadin. We will plan follow-up also with cardiology in 1 week to review options given unable to be on Coumadin. Weight / BMI Weight Weight: 238 lb 8.642 oz Body Mass Index (BMI) 31.5 ABG / Lab / Microbiology Data Result Diagrams: 04/26/21 18:47 04/26/21 06:26 Laboratory: Laboratory Results - last 24 hr 04/25/21 12:33: Crossmatch See Detail 04/26/21 18:47: Hgb 8.5 L, Hct 27.9 L Microbiology: Microbiology 04/25/21 12:56 Nasal Secretion SARS-CoV-2 Antigen (Rapid) - Final Meaningful Use Info Meaningful Use Diagnoses (Choose all that apply): None applicable Discharge Plan Admission Admit Date/Time: 04/25/21 13:31 Primary Reason for Your Visit: Acute blood loss anemia, GI bleed Attending Provider: Arely Virgen Primary Care Provider: Kevin Boogie Consulting Providers: Conor Rand ; Stanislav Brewster Instructions Patient Instructions: Bleeding Gastrointestinal Additional Instructions / Restrictions: DISCHARGE INSTRUCTIONS FOR GI BLEED: - Gastroenterology would like you to continue your new regimen including protonix 40 mg twice daily (unclear intended timeline duration) and misoprostol 200 mcg 4x daily (likely continue for at least 3 months). - STOP TAKING COUMADIN COMPLETELY. This medication may not be restarted unless absolutely cleared by gastroenterology. - You will have follow-up with Gastroenterology in 1 week. If everything is stable you may restart aspirin 81 mg (baby aspirin) once daily in 2 weeks. - Cardiology will see you in the office in 1 week to review admission and discuss options given inability to remain on coumadin. - DO NOT TAKE ANY NSAID given your GI bleeding recent history and underlying cardiac history. Discharge Orders/Prescriptions Prescriptions: New pantoprazole 40 mg Tablet,Delayed Release (Dr/Ec) 40 mg PO BID 30 Days Qty: 60 RF: 0 misoprostol 200 mcg Tablet 200 mcg PO 4X/DAY 30 Days Qty: 120 RF: 0 Continued atorvastatin [Lipitor] 80 mg tablet 80 mg PO DAILY RF: 0 coenzyme Q10 [CoQ-10] 100 mg capsule 100 mg PO DAILY RF: 0 [place]-3 Fish Oil 300-1,000 mg capsule 1 cap PO DAILY RF: 0 furosemide 40 mg tablet 40 mg PO BID@0800,1200 RF: 0 levothyroxine 125 mcg tablet 125 mcg PO DAILY RF: 0 ascorbic acid (vitamin C) 500 mg tablet 500 mg PO BID RF: 0 metoprolol succinate 50 mg tablet extended release 24 hr 50 mg PO DAILY Qty: 90 RF: 3 Held aspirin [Adult Aspirin Regimen] 81 mg tablet,delayed release (DR/EC) 81 mg PO DAILY RF: 0 Hold Instructions: Resume on 05/11/21. If cleared per Gastroenterology. Discontinued famotidine 40 mg tablet 40 mg PO DAILY RF: 0 warfarin 2.5 mg tablet 5 mg PO SUMOTUWETHSA RF: 0 warfarin 2.5 mg tablet 2.5 mg PO FR RF: 0 Referrals / Follow Up: Kevin Boogie MD [Primary Care Provider] - (Follow-up within 3-5 days to review admission.) Stanislav Brewster DO [STAFF PHYSICIAN] - (Follow-up in 1 week.) Carlos Ribeiro NP, WINDOWS SOFTWARE ENGINEER-C [Nurse Practitioner] - (Follow-up in 1 week.) Disposition Disposition (needs filled in before D/C Order can be placed): Home, Self Care Charges/Coding Visit Charges Inpatient E&M: 96033 Disch Hosp
--- NOTE | 2021-04-27 11:51 | PN.CARD_ITS ---
Subjective Subjective Patient seen and evaluated bedside today No symptoms reported, no event noted from last night. Objective Data Vital Signs: Vital Signs Temp Pulse Resp BP Pulse Ox 98.3 F 100 16 118/70 95 04/27/21 08:30 04/27/21 08:36 04/27/21 08:30 04/27/21 08:30 04/27/21 08:30 Oxygen Flow Rate (L/min) 2 Oxygen Delivery Method Nasal Cannula Weight: 238 lb 8.642 oz Body Mass Index (BMI) 31.5 Intake & Output: Intake and Output for Last 24 Hours 04/25/21 04/26/21 04/27/21 23:59 23:59 23:59 Intake Total 521.25 / 821.25 2071.42 / 2071.42 2492.55 / 2492.55 Output Total 300 / 575 1075 / 1075 325 / 325 Balance 221.25 / 246.25 996.42 / 996.42 2167.55 / 2167.55 Lab / Micro Data Result Diagrams: 04/26/21 18:47 04/26/21 06:26 Labs: Laboratory Results - last 24 hr 04/25/21 12:33: Crossmatch See Detail 04/26/21 18:47: Hgb 8.5 L, Hct 27.9 L Cardiology Labs/Tests 04/26/21 18:47: Hgb 8.5 L, Hct 27.9 L Rhythm: EKG: ECHO: Stress Test: Cardiac Cath: PCI: CT Surgery: Holter monitor: EPS: PPM: CXR: Chest CT Scan: Physical Exam Narrative Patient alert orientated x3 Review of the professor of german showed underlying atrial fibrillation controlled ventricular rate. Cardiovascular exam S1-S2 is irregular Chest exam clear to auscultation bilateral Central nervous system exam no focal neurological deficit Examination lower extremity no clubbing no cyanosis no lower extremity edema. Assessment & Plan Assessment/Plan (1) Atherosclerosis of coronary artery of [place] heart without angina pectoris: QUALIFIERS: Coronary Disease-Associated Artery/Lesion type: [place] artery Qualified Code(s): I25.10 - Atherosclerotic heart disease of [place] coronary artery without angina pectoris (2) Acute exacerbation of CHF (congestive heart failure): QUALIFIERS: Heart failure type: diastolic Qualified Code(s): I50.33 - Acute on chronic diastolic (congestive) heart failure (3) COPD (chronic obstructive pulmonary disease): QUALIFIERS: COPD type: unspecified COPD Qualified Code(s): J44.9 - Chronic obstructive pulmonary disease, unspecified (4) Anemia: QUALIFIERS: Anemia type: unspecified type Qualified Code(s): D64.9 - Anemia, unspecified (5) Hypertension: QUALIFIERS: Hypertension type: essential hypertension Qualified Code(s): I10 - Essential (primary) hypertension (6) Hyperlipidemia: QUALIFIERS: Hyperlipidemia type: unspecified Qualified Code(s): E78.5 - Hyperlipidemia, unspecified (7) Status post mitral valve repair: (8) History of coronary artery bypass graft x 3: (9) Colon cancer: QUALIFIERS: Colon location: unspecified part of colon Qualified Code(s): C18.9 - Malignant neoplasm of colon, unspecified (10) Paroxysmal atrial fibrillation: PLAN: 85-year-old patient with extensive cardiac history history of multivessel CAD with prior bypass surgery, mitral valve repair Also had paroxysmal atrial fibrillation with history of colon cancer In this admission patient had anemia requiring blood transfusion. Cardiovascular assessment recommendation; 1. Would agree with the current medical treatment with rate control using beta- mack as tolerated. Also agree with holding the anticoagulation and aspirin due to the high risk of severe anemia. 3. To follow-up with cardiology as an outpatient with his primary it architecture analyst Dr. Swanson to discuss watchman device As he had significantly high risk for stroke/cording to [id number] score score. Patient stable clinically.
--- NOTE | 2021-04-27 12:10 | CASEMGMT ---
ARTI HARRIS assessment: Face to Face with patient for initial transition planning/care coordination assessment. ARTI HARRIS introduced self and role at [facility], pt voices understanding and consents to assessment. Pt is sitting up in chair in no distress on room air. Pt is A/Ox4 and answers all questions appropriately. Care providers, pharmacy, and demographics verified. Presentation: Pt sent in for hgb 6, on blood thinners, hx gi bleed, colon cancer Admitting dx: A on C anemia PCP: Keagan Specialists: Amanda cardio Preferred Pharmacy: [facility] Insurance: MCR A/B, [employer] Prescription Benefit: Yes Living Will/HPOA: Pt states does not have LW/HPOA and declines AD info. LNOK: Corinne Bradley, ; Prem Alva, son Living Arrangements: Pt lives with in 1 story home and states no concerns at home. Pt is independent with ADL's. Transportation: Pt son drives or drives self and states no transportation concerns. DME/HHC: Pt has the following DME: walker, grab bars, shower chair, cane, and raised toilet seat. Pt states no need for any further DME. Pt states no hx of HHC or SNF. Pt states no concerns with going home at time of discharge. Pt is retired. Pt states does not smoke cigarettes or drink ETOH. Pt voices no further concerns/needs. CM to follow for any further discharge planning/needs. Advised pt to ask for CM if any further questions/concerns/needs arise, voices understanding. Pt Goal: Home Plan[place] ARTI HARRIS
[2021-04-27] MEDS: miSOPROStol 200 MCG Tablet PO (13:48)
[2021-04-27 15:20] LABS: Pathologist Review Reviewed
== END 2021-04-27 15:15 | disposition home or self-care (01) | DRG 378 ==
LOC: ED 13:31 → PCU 13:47
PROVIDERS: Internal Medicine Gastroenterology; Admitting Provider Family Medicine; Emergency Provider Emergency Medicine; PCP Family Medicine; Visit Provider Family Medicine
PROC: 0W3P8ZZ Control Bleeding in Gastrointestinal Tract, Via Natural or Artificial Opening Endoscopic (ICD-10-PCS; principal; 2021-04-26 09:00)
DX: K31.811 Angiodysplasia of stomach and duodenum with bleeding (principal); D68.32 Hemorrhagic disorder due to extrinsic circulating anticoagulants; D62 Acute posthemorrhagic anemia; I13.0 Hypertensive heart and chronic kidney disease with heart failure and stage 1 through stage 4 chronic kidney disease, or unspecified chronic kidney disease; I50.32 Chronic diastolic (congestive) heart failure; K55.21 Angiodysplasia of colon with hemorrhage; K57.11 Diverticulosis of small intestine without perforation or abscess with bleeding; T45.515A Adverse effect of anticoagulants, initial encounter; Y92.9 Unspecified place or not applicable; N18.30 Chronic kidney disease, stage 3 unspecified; N28.9 Disorder of kidney and ureter, unspecified; K31.7 Polyp of stomach and duodenum; Z20.822 Contact with and (suspected) exposure to COVID-19; K22.70 Barrett's esophagus without dysplasia; K44.9 Diaphragmatic hernia without obstruction or gangrene; D50.9 Iron deficiency anemia, unspecified; I95.9 Hypotension, unspecified; I25.10 Atherosclerotic heart disease of native coronary artery without angina pectoris; J44.9 Chronic obstructive pulmonary disease, unspecified; I48.0 Paroxysmal atrial fibrillation; E78.5 Hyperlipidemia, unspecified; E03.9 Hypothyroidism, unspecified; N40.0 Benign prostatic hyperplasia without lower urinary tract symptoms; K21.9 Gastro-esophageal reflux disease without esophagitis; E66.9 Obesity, unspecified; Z68.31 Body mass index [BMI] 31.0-31.9, adult; Z79.82 Long term (current) use of aspirin; Z79.890 Hormone replacement therapy; Z79.899 Other long term (current) drug therapy; Z85.038 Personal history of other malignant neoplasm of large intestine; Z87.891 Personal history of nicotine dependence; Z90.49 Acquired absence of other specified parts of digestive tract; Z95.1 Presence of aortocoronary bypass graft
CPT/HCPCS: 36415; 71046; 80048; 80053; 83735; 83880; 85014; 85018; 85025; 85027; 85610; 86850; 86900; 86901; 86920; 86922; 87426; 88305; 97162; 97166; 99251; 99285; J7030; J7040; P9016; A4216; G0463

== ENCOUNTER 2021-05-29 09:18 | Outpatient (RCR) | payer MEDICARE, OTHER, SELFPAY ==
[2021-05-02 03:43] VITALS: BMI 31.6
[2021-05-04 08:53] LABS: Absolute Lymphocyte Count 1.08 X10^3/uL (0.83-4.51); Absolute Neutrophil Count 4.7 X10^3/uL (2.0-7.7); Basophil# 0.06 X10^3/uL; Basophil% 0.8 % (0-1); Eosinophil# 0.61 X10^3/uL; Eosinophils% 8.5 % (0-5); Hematocrit 30.3 % (40-54); Hemoglobin 8.8 g/dL (13.0-16.5); Lymphocyte # 1.08 X10^3/ul (0.83-4.51); Lymphocyte % 15.1 % (19-41); Mean Corpuscular Hgb 23.6 pg (27.0-32.0); Mean Corpuscular Volume 81.2 fL (80-94); Mean Platelet Vol. 11.1 fl (6.2-12.0); Monocyte# 0.67 X10^3/uL; Monocyte% 9.4 % (0-10); NRBC Flagged by Analyzer 0 % (0-5); Neutrophil # 4.72 X10^3/uL (2.7-7.7); Neutrophil % 65.9 % (47-70); POSITIVE MORPHOLOGY YES; Platelet Count 181 K/mm3 (150-450); RBC Distribution Width CV 20.2 % (11.6-14.6); RBC Distribution Width SD 59.8 fl (35.1-43.9); Red Blood Count 3.73 M/mm3 (4.6-6.2); White Blood Count 7.2 K/mm3 (4.4-11.0)
[2021-05-04 08:58] LABS: Differential Indicated SCAN CRITERIA MET
[2021-05-04 09:03] LABS: International Normalized Ratio 1.1; Prothrombin Time (Protime)PT. 13.7 SECONDS (11.7-14.9)
[2021-05-04 09:19] LABS: Anisocytosis 1+; Hypochromasia 2+; Microcytosis 1+; Ovalocyte RARE; Platelet Estimate ADEQUATE (ADEQ)
[2021-05-04 09:37] LABS: AST(SGOT) 20 U/L (15-37); Alanine Aminotransfer ALT/SGPT 16 U/L (16-61); Anion Gap 7 (5-15); BUN 15 mg/dL (7-18); BUN/Creat Ratio 12.3 RATIO (10-20); Calcium,Total 9.5 mg/dL (8.5-10.1); Chloride 104 mmol/L (98-107); Creatinine, Serum 1.22 mg/dL (0.70-1.30); EST Glomerular Filtration Rate 60 mL/min (>60); Est Glom Filt Rate - Afr Amer 73 mL/min (>60); Glucose 96 mg/dL (74-106); Potassium 3.2 mmol/L (3.5-5.1); Sodium Level 139 mmol/L (136-145)
[2021-05-24 11:20] LABS: International Normalized Ratio 1.4; Prothrombin Time (Protime)PT. 16.8 SECONDS (11.7-14.9)
[2021-05-29 09:52] LABS: International Normalized Ratio 2.3; Prothrombin Time (Protime)PT. 24.3 SECONDS (11.7-14.9)
== END 2021-06-02 18:00 | disposition home or self-care (01) ==
LOC: LAB 09:18
PROVIDERS: Family Provider Family Medicine; PCP Family Medicine; Referring Provider Specialist; Visit Provider Specialist
DX: I48.0 Paroxysmal atrial fibrillation (principal); Z79.01 Long term (current) use of anticoagulants
CPT/HCPCS: 36415; 80048; 84450; 84460; 85025; 85610

== ENCOUNTER 2021-06-12 09:37 | Outpatient (RCR) | payer MEDICARE, OTHER, SELFPAY ==
[2021-06-04 02:26] VITALS: BMI 31.6
[2021-06-12 10:48] LABS: International Normalized Ratio 2.6; Prothrombin Time (Protime)PT. 27.1 SECONDS (11.7-14.9)
== END 2021-07-02 18:00 | disposition home or self-care (01) ==
LOC: LAB 09:37
PROVIDERS: Family Provider Family Medicine; PCP Family Medicine; Referring Provider Specialist; Visit Provider Specialist
DX: I48.0 Paroxysmal atrial fibrillation (principal); Z79.01 Long term (current) use of anticoagulants
CPT/HCPCS: 36415; 85610

== ENCOUNTER 2021-07-13 13:51 | Outpatient (CLI) | payer MEDICARE, OTHER, SELFPAY ==
[2021-07-13 15:15] LABS: Absolute Lymphocyte Count 1.17 X10^3/uL (0.83-4.51); Absolute Neutrophil Count 3.7 X10^3/uL (2.0-7.7); Basophil# 0.05 X10^3/uL; Basophil% 0.8 % (0-1); Eosinophil# 0.45 X10^3/uL; Eosinophils% 7.6 % (0-5); Hematocrit 39.9 % (40-54); Hemoglobin 12.7 g/dL (13.0-16.5); Lymphocyte # 1.17 X10^3/ul (0.83-4.51); Lymphocyte % 19.8 % (19-41); Mean Corp Hgb Conc 31.8 g/dL (32-36); Mean Corpuscular Hgb 27.7 pg (27.0-32.0); Mean Corpuscular Volume 86.9 fL (80-94); Monocyte# 0.51 X10^3/uL; Monocyte% 8.6 % (0-10); NRBC Flagged by Analyzer 0 % (0-5); Neutrophil % 62.9 % (47-70); Platelet Count 141 K/mm3 (150-450); RBC Distribution Width CV 19.2 % (11.6-14.6); RBC Distribution Width SD 62.2 fl (35.1-43.9); Red Blood Count 4.59 M/mm3 (4.6-6.2); White Blood Count 5.9 K/mm3 (4.4-11.0)
[2021-07-13 15:40] LABS: Vitamin B12 410 pg/mL (211-911)
[2021-07-13 15:52] LABS: ALB/GLOB Ratio 0.8 RATIO (0.9-2.4); AST(SGOT) 23 U/L (15-37); Alanine Aminotransfer ALT/SGPT 19 U/L (16-61); Alkaline Phosphatase 168 U/L (45-117); Anion Gap 2 (5-15); BUN 23 mg/dL (7-18); BUN/Creat Ratio 23.9 RATIO (10-20); Calcium,Total 9.8 mg/dL (8.5-10.1); Chloride 110 mmol/L (98-107); Creatinine, Serum 0.96 mg/dL (0.70-1.30); EST Glomerular Filtration Rate 79 mL/min (>60); Est Glom Filt Rate - Afr Amer 95 mL/min (>60); Globulin 3.9 g/dL (2.2-4.2); Glucose 91 mg/dL (74-106); Iron 89 ug/dL (65-175); Potassium 4.2 mmol/L (3.5-5.1); Protein, Total 6.9 g/dL (6.4-8.2); Sodium Level 139 mmol/L (136-145)
== END 2021-07-13 23:59 | disposition home or self-care (01) ==
LOC: MFPLAB 13:55
PROVIDERS: PCP Family Medicine; Referring Provider Family Medicine; Visit Provider Family Medicine
DX: D64.9 Anemia, unspecified (principal); I48.91 Unspecified atrial fibrillation; E53.8 Deficiency of other specified B group vitamins
CPT/HCPCS: 36415; 80053; 82607; 82746; 83540; 85025

== ENCOUNTER 2021-07-24 09:00 | Outpatient (RCR) | payer MEDICARE, OTHER, SELFPAY ==
[2021-07-03 02:10] VITALS: BMI 31.6
[2021-07-03 11:26] LABS: International Normalized Ratio 2.6; Prothrombin Time (Protime)PT. 27.1 SECONDS (11.7-14.9)
[2021-07-24 09:43] LABS: International Normalized Ratio 2.1
== END 2021-07-24 23:59 | disposition home or self-care (01) ==
LOC: LAB 09:00
PROVIDERS: Family Provider Family Medicine; PCP Family Medicine; Referring Provider Specialist; Visit Provider Specialist
DX: I48.0 Paroxysmal atrial fibrillation (principal); Z79.01 Long term (current) use of anticoagulants
CPT/HCPCS: 36415; 85610

== ENCOUNTER 2021-08-14 09:21 | Outpatient (RCR) | payer MEDICARE, OTHER, SELFPAY ==
[2021-07-31 10:20] VITALS: BMI 31.6
[2021-08-14 11:23] LABS: International Normalized Ratio 2.2
== END 2021-08-30 18:00 | disposition home or self-care (01) ==
LOC: LAB 09:21
PROVIDERS: Family Provider Family Medicine; PCP Family Medicine; Referring Provider Specialist; Visit Provider Specialist
DX: I48.0 Paroxysmal atrial fibrillation (principal); Z79.01 Long term (current) use of anticoagulants
CPT/HCPCS: 36415; 85610

== ENCOUNTER 2021-09-11 09:32 | Outpatient (RCR) | payer MEDICARE, OTHER, SELFPAY ==
[2021-08-31 03:42] VITALS: BMI 31.6
[2021-09-11 10:45] LABS: Absolute Lymphocyte Count 1.23 X10^3/uL (0.83-4.51); Absolute Neutrophil Count 4.7 X10^3/uL (2.0-7.7); Basophil# 0.03 X10^3/uL; Basophil% 0.4 % (0-1); Eosinophil# 0.52 X10^3/uL; Eosinophils% 7.4 % (0-5); Hematocrit 41.9 % (40-54); Hemoglobin 13.5 g/dL (13.0-16.5); Lymphocyte # 1.23 X10^3/ul (0.83-4.51); Lymphocyte % 17.4 % (19-41); Mean Corp Hgb Conc 32.2 g/dL (32-36); Mean Corpuscular Hgb 29.1 pg (27.0-32.0); Mean Corpuscular Volume 90.3 fL (80-94); Mean Platelet Vol. 12.1 fl (6.2-12.0); Monocyte# 0.58 X10^3/uL; Monocyte% 8.2 % (0-10); NRBC Flagged by Analyzer 0 % (0-5); Neutrophil # 4.66 X10^3/uL (2.7-7.7); Neutrophil % 66.2 % (47-70); Platelet Count 136 K/mm3 (150-450); RBC Distribution Width CV 14.7 % (11.6-14.6); RBC Distribution Width SD 48.6 fl (35.1-43.9); Red Blood Count 4.64 M/mm3 (4.6-6.2); White Blood Count 7.1 K/mm3 (4.4-11.0)
[2021-09-11 10:56] LABS: International Normalized Ratio 2.4; Prothrombin Time (Protime)PT. 25.6 SECONDS (11.7-14.9)
[2021-09-11 11:14] LABS: Iron 68 ug/dL (65-175); Iron Binding Capacity,Total 300 ug/dL (250-450); PERCENT IRON SATURATION 22.7 % (15.0-55.0)
== END 2021-09-11 18:00 | disposition home or self-care (01) ==
LOC: LAB 09:32
PROVIDERS: Nurse Practitioner Adult Health; Family Provider Family Medicine; PCP Family Medicine; Referring Provider Specialist; Visit Provider Specialist
DX: I48.0 Paroxysmal atrial fibrillation (principal); Z79.01 Long term (current) use of anticoagulants
CPT/HCPCS: 36415; 83540; 83550; 85025; 85610

== ENCOUNTER 2021-10-09 08:36 | Outpatient (RCR) | payer MEDICARE, OTHER, SELFPAY ==
[2021-09-30 04:48] VITALS: BMI 31.6
[2021-10-09 10:16] LABS: Absolute Lymphocyte Count 1.22 X10^3/uL (0.83-4.51); Absolute Neutrophil Count 4.4 X10^3/uL (2.0-7.7); Basophil# 0.05 X10^3/uL; Basophil% 0.8 % (0-1); Eosinophil# 0.48 X10^3/uL; Eosinophils% 7.2 % (0-5); Hematocrit 41.9 % (40-54); Hemoglobin 13.3 g/dL (13.0-16.5); Lymphocyte # 1.22 X10^3/ul (0.83-4.51); Lymphocyte % 18.4 % (19-41); Mean Corp Hgb Conc 31.7 g/dL (32-36); Mean Corpuscular Hgb 29.4 pg (27.0-32.0); Mean Corpuscular Volume 92.7 fL (80-94); Mean Platelet Vol. 12.5 fl (6.2-12.0); Monocyte# 0.49 X10^3/uL; Monocyte% 7.4 % (0-10); NRBC Flagged by Analyzer 0 % (0-5); Neutrophil # 4.38 X10^3/uL (2.7-7.7); Neutrophil % 65.9 % (47-70); Platelet Count 130 K/mm3 (150-450); RBC Distribution Width CV 14.6 % (11.6-14.6); RBC Distribution Width SD 49.8 fl (35.1-43.9); Red Blood Count 4.52 M/mm3 (4.6-6.2); White Blood Count 6.6 K/mm3 (4.4-11.0)
[2021-10-09 10:19] LABS: International Normalized Ratio 1.9; Prothrombin Time (Protime)PT. 21.6 SECONDS (11.7-14.9)
== END 2021-10-09 18:00 | disposition home or self-care (01) ==
LOC: LAB 08:36
PROVIDERS: Nurse Practitioner Adult Health; Family Provider Family Medicine; PCP Family Medicine; Referring Provider Specialist; Visit Provider Specialist
DX: I48.0 Paroxysmal atrial fibrillation (principal); Z79.01 Long term (current) use of anticoagulants
CPT/HCPCS: 36415; 85025; 85610

== ENCOUNTER 2021-11-06 09:11 | Outpatient (RCR) | payer MEDICARE, OTHER, SELFPAY ==
[2021-10-30 21:14] VITALS: BMI 31.6
[2021-11-06 10:06] LABS: International Normalized Ratio 2.1; Prothrombin Time (Protime)PT. 23.5 SECONDS (11.7-14.9)
== END 2021-11-06 23:59 | disposition home or self-care (01) ==
LOC: LAB 09:11
PROVIDERS: Family Provider Family Medicine; PCP Family Medicine; Referring Provider Specialist; Visit Provider Specialist
DX: I48.0 Paroxysmal atrial fibrillation (principal); Z79.01 Long term (current) use of anticoagulants
CPT/HCPCS: 36415; 85610

== ENCOUNTER 2021-12-18 08:57 | Outpatient (RCR) | payer MEDICARE, OTHER, SELFPAY ==
[2021-11-30 07:39] VITALS: BMI 31.6
[2021-12-11 09:35] LABS: Absolute Lymphocyte Count 1.31 X10^3/uL (0.83-4.51); Absolute Neutrophil Count 4.9 X10^3/uL (2.0-7.7); Basophil# 0.05 X10^3/uL; Basophil% 0.7 % (0-1); Eosinophil# 0.64 X10^3/uL; Eosinophils% 8.6 % (0-5); Hematocrit 40.9 % (40-54); Hemoglobin 12.7 g/dL (13.0-16.5); Lymphocyte # 1.31 X10^3/ul (0.83-4.51); Lymphocyte % 17.7 % (19-41); Mean Corp Hgb Conc 31.1 g/dL (32-36); Mean Corpuscular Hgb 29.6 pg (27.0-32.0); Mean Corpuscular Volume 95.3 fL (80-94); Mean Platelet Vol. 12.1 fl (6.2-12.0); Monocyte# 0.54 X10^3/uL; Monocyte% 7.3 % (0-10); NRBC Flagged by Analyzer 0 % (0-5); Neutrophil # 4.86 X10^3/uL (2.7-7.7); Neutrophil % 65.4 % (47-70); Platelet Count 122 K/mm3 (150-450); RBC Distribution Width CV 14.5 % (11.6-14.6); RBC Distribution Width SD 51.3 fl (35.1-43.9); Red Blood Count 4.29 M/mm3 (4.6-6.2); White Blood Count 7.4 K/mm3 (4.4-11.0)
[2021-12-11 09:49] LABS: International Normalized Ratio 1.7; Prothrombin Time (Protime)PT. 19.6 SECONDS (11.7-14.9)
[2021-12-18 10:46] LABS: International Normalized Ratio 2.1; Prothrombin Time (Protime)PT. 23.1 SECONDS (11.7-14.9)
== END 2021-12-30 02:56 | disposition home or self-care (01) ==
LOC: LAB 08:57
PROVIDERS: Nurse Practitioner Adult Health; Family Provider Family Medicine; PCP Family Medicine; Referring Provider Specialist; Visit Provider Specialist
DX: I48.0 Paroxysmal atrial fibrillation (principal); Z79.01 Long term (current) use of anticoagulants
CPT/HCPCS: 36415; 85025; 85610

== ENCOUNTER 2022-01-08 08:58 | Outpatient (RCR) | payer MEDICARE, OTHER, SELFPAY ==
[2021-12-30 02:56] VITALS: BMI 31.6
== END 2022-01-08 18:00 | disposition home or self-care (01) ==
LOC: LAB 08:58
PROVIDERS: Family Provider Family Medicine; PCP Family Medicine; Referring Provider Specialist; Visit Provider Specialist
DX: I48.0 Paroxysmal atrial fibrillation (principal); Z79.01 Long term (current) use of anticoagulants
CPT/HCPCS: 36415; 85610

== ENCOUNTER 2022-02-05 09:02 | Outpatient (RCR) | payer MEDICARE, OTHER, SELFPAY ==
[2022-01-31 00:16] VITALS: BMI 31.6
[2022-02-05 11:18] LABS: International Normalized Ratio 2.2
== END 2022-02-05 18:00 | disposition home or self-care (01) ==
LOC: LAB 09:02
PROVIDERS: Family Provider Family Medicine; PCP Family Medicine; Referring Provider Specialist; Visit Provider Specialist
DX: I48.0 Paroxysmal atrial fibrillation (principal); Z79.01 Long term (current) use of anticoagulants
CPT/HCPCS: 36415; 85610

== ENCOUNTER 2022-03-05 09:16 | Outpatient (RCR) | payer MEDICARE, OTHER, SELFPAY ==
[2022-03-01 23:06] VITALS: BMI 31.6
[2022-03-05 10:25] LABS: International Normalized Ratio 2.2; Prothrombin Time (Protime)PT. 23.8 SECONDS (11.7-14.9)
== END 2022-03-05 18:00 | disposition home or self-care (01) ==
LOC: LAB 09:16
PROVIDERS: Family Provider Family Medicine; PCP Family Medicine; Referring Provider Specialist; Visit Provider Specialist
DX: I48.0 Paroxysmal atrial fibrillation (principal); Z79.01 Long term (current) use of anticoagulants
CPT/HCPCS: 36415; 85610

== ENCOUNTER 2022-04-09 09:08 | Outpatient (RCR) | payer MEDICARE, OTHER, SELFPAY ==
[2022-04-02 10:45] VITALS: BMI 31.6
[2022-04-09 09:49] LABS: International Normalized Ratio 2.2; Prothrombin Time (Protime)PT. 24.1 SECONDS (11.7-14.9)
== END 2022-05-01 18:00 | disposition home or self-care (01) ==
LOC: LAB 09:08
PROVIDERS: Family Provider Family Medicine; PCP Family Medicine; Referring Provider Specialist; Visit Provider Specialist
DX: I48.0 Paroxysmal atrial fibrillation (principal); Z79.01 Long term (current) use of anticoagulants
CPT/HCPCS: 36415; 85610

== ENCOUNTER 2022-05-21 09:36 | Outpatient (RCR) | payer MEDICARE, OTHER, SELFPAY ==
[2022-05-02 00:44] VITALS: BMI 31.6
[2022-05-07 11:34] LABS: International Normalized Ratio 1.9; Prothrombin Time (Protime)PT. 21.1 SECONDS (11.7-14.9)
[2022-05-21 11:45] LABS: International Normalized Ratio 1.8; Prothrombin Time (Protime)PT. 20.7 SECONDS (11.7-14.9)
== END 2022-05-21 18:00 | disposition home or self-care (01) ==
LOC: LAB 09:36
PROVIDERS: Internal Medicine Cardiovascular Disease; Family Provider Family Medicine; PCP Family Medicine; Referring Provider Specialist; Visit Provider Specialist
DX: I48.0 Paroxysmal atrial fibrillation (principal); Z79.01 Long term (current) use of anticoagulants
CPT/HCPCS: 36415; 85610

== ENCOUNTER → 2022-06-20 | Outpatient (CLI) | payer MEDICARE, OTHER, SELFPAY ==
[2022-06-20 17:49] LABS: Absolute Lymphocyte Count 1.25 X10^3/uL (0.83-4.51); Absolute Neutrophil Count 4.8 X10^3/uL (2.0-7.7); Basophil# 0.05 X10^3/uL; Basophil% 0.7 % (0-1); Eosinophil# 0.61 X10^3/uL; Eosinophils% 8.2 % (0-5); Hemoglobin 13.7 g/dL (13.0-16.5); Lymphocyte # 1.25 X10^3/ul (0.83-4.51); Lymphocyte % 16.8 % (19-41); Mean Corp Hgb Conc 31.1 g/dL (32-36); Mean Corpuscular Hgb 28.8 pg (27.0-32.0); Mean Corpuscular Volume 92.4 fL (80-94); Mean Platelet Vol. 12.5 fl (6.2-12.0); Monocyte# 0.67 X10^3/uL; NRBC Flagged by Analyzer 0 % (0-5); Neutrophil # 4.84 X10^3/uL (2.7-7.7); Platelet Count 144 K/mm3 (150-450); RBC Distribution Width CV 14.4 % (11.6-14.6); RBC Distribution Width SD 49.2 fl (35.1-43.9); Red Blood Count 4.76 M/mm3 (4.6-6.2); White Blood Count 7.4 K/mm3 (4.4-11.0)
[2022-06-20 18:45] LABS: Vitamin B12 390 pg/mL (211-911)
[2022-06-20 19:27] LABS: AST(SGOT) 22 U/L (15-37); Alanine Aminotransfer ALT/SGPT 17 U/L (16-61); Albumin, Serum 3.4 g/dL (3.2-5.0); Alkaline Phosphatase 180 U/L (45-117); Anion Gap 7 (5-15); BUN 22 mg/dL (7-18); Calcium,Total 9.3 mg/dL (8.5-10.1); Chloride 107 mmol/L (98-107); EST Glomerular Filtration Rate 67 mL/min (>60); Est Glom Filt Rate - Afr Amer 82 mL/min (>60); Ferritin 47 ng/mL (26-388); Globulin 3.5 g/dL (2.2-4.2); Glucose 95 mg/dL (74-106); Magnesium 1.9 mg/dL (1.6-2.6); PSA,Total- Diagnostic 0.13 ng/mL (0.0-4.0); Potassium 4.5 mmol/L (3.5-5.1); Protein, Total 6.9 g/dL (6.4-8.2); Sodium Level 141 mmol/L (136-145); Thyroid Stim Hormone (TSH) 1.79 uIU/mL (0.358-3.74)
== END | disposition home or self-care (01) ==
LOC: MFPLAB 15:53
PROVIDERS: PCP Family Medicine; Visit Provider Family Medicine
DX: I10 Essential (primary) hypertension (principal); J44.9 Chronic obstructive pulmonary disease, unspecified; I48.91 Unspecified atrial fibrillation; E53.8 Deficiency of other specified B group vitamins; D64.9 Anemia, unspecified; N40.0 Benign prostatic hyperplasia without lower urinary tract symptoms
CPT/HCPCS: 36415; 80053; 82607; 82728; 83735; 84153; 84443; 85025

== ENCOUNTER 2022-06-25 09:28 | Outpatient (RCR) | payer MEDICARE, OTHER, SELFPAY ==
[2022-06-02 04:37] VITALS: BMI 31.6
[2022-06-04 10:25] LABS: Prothrombin Time (Protime)PT. 22.6 SECONDS (11.7-14.9)
[2022-06-25 10:39] LABS: International Normalized Ratio 2.5; Prothrombin Time (Protime)PT. 26.5 SECONDS (11.7-14.9)
== END 2022-06-25 18:00 | disposition home or self-care (01) ==
LOC: LAB 09:28
PROVIDERS: Family Provider Family Medicine; PCP Family Medicine; Visit Provider Internal Medicine Cardiovascular Disease
DX: I48.0 Paroxysmal atrial fibrillation (principal); Z79.01 Long term (current) use of anticoagulants
CPT/HCPCS: 36415; 85610

== ENCOUNTER 2022-07-16 09:25 | Outpatient (RCR) | payer MEDICARE, OTHER, SELFPAY ==
[2022-07-03 08:43] VITALS: BMI 31.6
[2022-07-16 10:13] LABS: International Normalized Ratio 2.1
== END 2022-07-16 18:00 | disposition home or self-care (01) ==
LOC: LAB 09:25
PROVIDERS: Family Provider Family Medicine; PCP Family Medicine; Visit Provider Internal Medicine Cardiovascular Disease
DX: I48.0 Paroxysmal atrial fibrillation (principal); Z79.01 Long term (current) use of anticoagulants
CPT/HCPCS: 36415; 85610

== ENCOUNTER 2022-08-13 11:05 | Outpatient (RCR) | payer MEDICARE, OTHER, SELFPAY ==
[2022-07-30 22:40] VITALS: BMI 31.6
[2022-08-13 12:18] LABS: International Normalized Ratio 2.6; Prothrombin Time (Protime)PT. 27.4 SECONDS (11.7-14.9)
== END 2022-08-30 23:20 | disposition home or self-care (01) ==
LOC: LAB 11:05
PROVIDERS: Family Provider Family Medicine; PCP Family Medicine; Referring Provider Internal Medicine Cardiovascular Disease; Visit Provider Internal Medicine Cardiovascular Disease
DX: I48.0 Paroxysmal atrial fibrillation (principal); Z79.01 Long term (current) use of anticoagulants
CPT/HCPCS: 36415; 85610

== ENCOUNTER 2022-09-10 09:51 | Outpatient (RCR) | payer MEDICARE, OTHER, SELFPAY ==
[2022-08-30 23:20] VITALS: BMI 31.6
[2022-09-10 11:15] LABS: International Normalized Ratio 2.6; Prothrombin Time (Protime)PT. 27.9 SECONDS (11.7-14.9)
== END 2022-09-29 02:11 | disposition home or self-care (01) ==
LOC: LAB 09:51
PROVIDERS: Family Provider Family Medicine; PCP Family Medicine; Referring Provider Internal Medicine Cardiovascular Disease; Visit Provider Internal Medicine Cardiovascular Disease
DX: I48.0 Paroxysmal atrial fibrillation (principal); Z79.01 Long term (current) use of anticoagulants
CPT/HCPCS: 36415; 85610

== ENCOUNTER 2022-10-01 12:13 | Observation (INO) | payer MEDICARE, OTHER, SELFPAY ==
[2022-10-01] VITALS (11 sets, daily range): BP systolic 107–133; BP diastolic 56–101; PULSE 20–99; RESP 18–24; TEMP 36.2–36.7; O2SAT 92–97; BMI 31.7; BMI 31.3
--- NOTE | 2022-10-01 12:46 | RAD_ITS ---
STUDY: X-RAY CHEST REASON FOR EXAM: Male, 87 years old. Shortness of breath. Dyspnea. TECHNIQUE: AP and lateral views of the chest. COMPARISON: Comparison is made with prior study dated April 25, 2021. FINDINGS: EKG electrodes are seen. Elevation of the right hemidiaphragm. Blunting of the right costo phrenic angle. Stable pleural parenchymal changes at the right lung base with evidence of a pleural plaque formation. Infiltration in the left lower lobe. Radiographic follow-up is recommended. Sternal cerclage wires are present from a prior sternotomy. Prior mitral bowel replacement. Cardiomegaly. Normal mediastinum and megan. Normal visualized pulmonary arteries. There is atherosclerotic tortuosity of the aortic arch and descending thoracic aorta. There are diffuse degenerative changes of the visualized thoracic spine. Increased kyphosis. Normal visualized ribs, clavicles, and shoulders. There is no demonstrated abnormality of the visualized soft tissue structures of the upper abdomen. RAD/Chest PA and Lateral IMPRESSION: Stable pleural parenchymal changes at the right lung base with a new consolidation in the left lower lobe. Radiographic follow-up is recommended. Electronically Signed: Ruben Hare MD at 14:04 EDT ,
[2022-10-01 13:00] LABS: Absolute Lymphocyte Count 0.91 X10^3/uL (0.83-4.51); Basophil# 0.05 X10^3/uL; Basophil% 0.6 % (0-1); Eosinophil# 0.27 X10^3/uL; Eosinophils% 3.4 % (0-5); Hematocrit 42.8 % (40-54); Hemoglobin 13.4 g/dL (13.0-16.5); Lymphocyte # 0.91 X10^3/ul (0.83-4.51); Lymphocyte % 11.3 % (19-41); Mean Corp Hgb Conc 31.3 g/dL (32-36); Mean Corpuscular Hgb 28.4 pg (27.0-32.0); Mean Corpuscular Volume 90.7 fL (80-94); Mean Platelet Vol. 12.1 fl (6.2-12.0); Monocyte# 0.75 X10^3/uL; Monocyte% 9.3 % (0-10); NRBC Flagged by Analyzer 0 % (0-5); Neutrophil # 6.04 X10^3/uL (2.7-7.7); Platelet Count 158 K/mm3 (150-450); RBC Distribution Width CV 14.7 % (11.6-14.6); RBC Distribution Width SD 49.1 fl (35.1-43.9); Red Blood Count 4.72 M/mm3 (4.6-6.2); White Blood Count 8.1 K/mm3 (4.4-11.0)
[2022-10-01 13:15] LABS: International Normalized Ratio 2.9
[2022-10-01 13:21] LABS: Anion Gap 5 (5-15); BUN 30 mg/dL (7-18); BUN/Creat Ratio 24.8 RATIO (10-20); Calcium,Total 10.5 mg/dL (8.5-10.1); Chloride 107 mmol/L (98-107); Creatinine, Serum 1.21 mg/dL (0.70-1.30); EST Glomerular Filtration Rate 60 mL/min (>60); Est Glom Filt Rate - Afr Amer 73 mL/min (>60); Estimated Creatinine Clearance 47.21 ml/min; Glucose 91 mg/dL (74-106); Potassium 4.5 mmol/L (3.5-5.1); Sodium Level 140 mmol/L (136-145); Troponin-I HS 12 pg/mL (3.0-78.0)
[2022-10-01 13:24] LABS: BNP,B-Type NATRIURETIC PEPTIDE 58.3 pg/mL (0-100)
--- NOTE | 2022-10-01 14:12 | ED.VIS.DYS ---
HPI History of Present Illness Chief Complaint: Shortness of Breath Informant: patient Narrative Narrative: Patient is an 87-year-old with history of CABG, proximal atrial fibrillation on Coumadin therapy, hypertension presenting with worsening shorteness of breath. Patient states his symptoms been worsening over the past 3 weeks or so. He states he had a mild nonproductive cough. I does not know if he had any weight change. Has chronic edema of his right leg where they did a vein harvesting for his CABG but denies any significant swelling. States at night he feels really short of breath and is having to put on his 's oxygen to sleep. He states the second he starts moving around he gets short of breath again. He dneis any fever. denies any chest pain but notes sometimes she does get some pain over his left rib. Denies any recent falls. States that he was talking for cardiology nurse and Dr. Swanson saw him and told him to go to the ED. [facility] Medical History Abnormality of gait Acid reflux Allergic rhinitis Anemia Anemia requiring transfusions Atherosclerosis of coronary artery of [place] heart without angina pectoris Atrial fibrillation with rapid ventricular response Blood clots in stool Carotid artery disease Colon cancer COPD (chronic obstructive pulmonary disease) Essential hypertension GI bleed (04/25/21) Hyperbilirubinemia Hyperlipidemia Hypothyroidism (acquired) Iron deficiency anemia Nonrheumatic mitral (valve) insufficiency Nonsustained paroxysmal supraventricular tachycardia Obesity Paroxysmal atrial fibrillation Personal history of colonic polyps Prostatic hypertrophy Respiratory failure Urinary retention Home Medications atorvastatin 80 mg tablet (Lipitor) 80 mg PO DAILY CHOLESTEROL 07/14/17 [History Last Taken 10/01/22] ascorbic acid (vitamin C) 500 mg tablet 1,000 mg PO BID SUPPLEMENT 02/15/20 [History Last Taken 10/01/22] levothyroxine 125 mcg tablet 125 mcg PO DAILY THYROID 04/25/21 [History Last Taken 10/01/22] furosemide 40 mg tablet 40 mg PO DAILY FLUID 10/01/22 [History Last Taken 09/30/22] metoprolol succinate 100 mg tablet,extended release 24 hr 100 mg PO DAILY BLOOD PRESSURE 10/01/22 [History Last Taken 10/01/22] omega-3 fatty acids 500 mg capsule 500 mg PO DAILY SUPPLEMENT 10/01/22 [History Last Taken 10/01/22] potassium chloride 20 mEq tablet,extended release 20 meq PO DAILY SUPPLEMENT 10/01/22 [History Last Taken 10/01/22] warfarin 2.5 mg tablet See Rx Instructions .Route .COMPLEX BLOOD THINNER 10/01/22 [History Last Taken 10/01/22] Allergy/AdvReac Type Severity Reaction Status Date / Time adhesive tape Allergy Intermediate dermatitis Verified 10/01/22 12:16 Family History Father , of pneumonia Pneumonia Mother , of CAD CAD (coronary artery disease) Arthritis Sister , Cause unknown Rheumatoid arthritis Oral cancer Sister Arthritis Sister No problems noted. Sister No problems noted. Surgical History H/O coronary artery bypass surgery (12/25/18) History of bladder surgery History of cardioversion (05/31/19) History of colectomy History of colonoscopy (09/30/17) History of esophagogastroduodenoscopy (EGD) (~04/2021) History of mitral valve repair (12/25/18) History of transurethral resection of prostate Status post mitral valve repair (12/25/18) Social History household members: spouse Smoking Status: Former smoker quit date: 06/04/96 pack-years: 40 how long ago did patient quit smokin years ago alcohol intake: never substance use type: does not use caffeine: Yes Type: coffee Number of servings: 2 ROS ROS ED Constitutional Constitutional ED: Denies chills or fever(s) Eyes Eyes: Denies change in vision ENT ENT ED: Denies sore throat Cardiovascular Cardiovascular: Reports orthopnea; Denies chest pain or palpitations Respiratory/Chest Respiratory/Chest: Reports cough, dyspnea, dyspnea on exertion and orthopnea Gastrointestinal Gastrointestinal: Denies abdominal pain, melena, nausea or vomiting Musculoskeletal Musculoskeletal: Denies arthralgias or myalgias Integumentary Denies rash Neurologic Neurologic: Reports weakness; Denies paresthesias Psychiatric Psychiatric: Denies anxiety Hematologic/Lymphatic Hematologic/Lymphatic: Reports easy bleeding and easy bruising EXAM Physical Exam Const Vital Signs: 10/01/22 12:14 10/01/22 12:54 10/01/22 14:30 Temperature 97.6 F L Temperature Source Temporal Pulse Rate 99 92 89 Respiratory Rate 20 H 19 H 18 Blood Pressure 117/78 107/56 L 133/101 H Blood Pressure Mean 91 73 111 Pulse Ox 94 95 96 Oxygen Delivery Method Room Air Room Air Room Air 10/01/22 15:29 10/01/22 16:09 Temperature 98.1 F 97.2 F L Temperature Source Temporal Temporal Pulse Rate 20 L 89 Respiratory Rate 20 H 22 H Blood Pressure 125/69 H 130/79 H Blood Pressure Mean 87 96 Pulse Ox 96 92 Oxygen Delivery Method Room Air Room Air Positive well nourished and well developed General Appearance ED: well developed and NAD; Negative for pallor HEENT Reports moist mucous membranes Eyes PERRL and EOMs intact bilaterally Neck supple Neck Narrative: + JVD Chest Wall Chest Narrative: no e wall rash or tenderness Resp Resp Narrative: Tachypneic at rest. Crackels at the left base. Speaks in 3-4 word sentences. Cardio regular rate Rhythm: abnormal rhythm irregularly irregular GI non-tender and non-distended Extremity normal to inspection Extremity Narrative: Slightly asymmetric edema of the lower extremities, right greater than left. Nonpitting edema. 2+ distal pulses Neuro oriented x3 Sensorium / Orientation: alert Motor Exam: general weakness Psych mental status grossly normal Thought Process: normal thought process Skin no wounds General Skin Exam: Negative for pallor Rashes: no rashes MDM MDM MDM Narrative Medical decision making narrative: Patient is evaluated for increased dyspnea on exertion and shortness of breath over the past few weeks. He has had a mild cough. Did not take his water pill today because he knew he was coming to the doctor today and denies any weight changes. Patient is quite dyspneic on exertion and seems short of breath. Patient's INR is therapeutic at 2.9. Suspicion for PE as he is therapeutically anticoagulated due to his atrial fibrillation. High-sensitivity troponin is normal at 12. This does not seem like an ACS equivalent. Patient does not have any acute anemia, leukocytosis or other acute laboratory abnormalities. His BNP is normal at 58.3. Chest x-ray is obtained interpreted by myself as well as radiology which does show chronic changes as well as new consolidation of the left lower lobe. Given his presentation is not particularly consistent with pneumonia I did obtain a CT to further evaluate this. CT without contrast shows large mediastinal lymphadenopathy as well as chronic emphysematous changes. Clinically patient is not wheezing I do not think this is a COPD/emphysema exacerbation. Patient is him in the ER and desaturates to 88%. Given his acute hypoxia and need for supplemental oxygen I do think he would benefit from admission. Discussed with the hospitalist and I did add on a COVID/flu looking for cause of his lymphadenopathy. Discussed how oncologic process is also in the differential. Patient appears euvolemic and I do not think requires IV diuresis emergently and I did not give any antibiotics as I do not see an obvious infiltrate on his CT. Patient is agreeable with admission. Remains hemodynamically stable in the emergency room. Lab Data Labs: Laboratory Results - last 24 hr 10/01/22 10/01/22 10/01/22 12:49 12:49 12:49 WBC 8.1 RBC 4.72 Hgb 13.4 Hct 42.8 MCV 90.7 MCH 28.4 MCHC 31.3 L RDW Std Deviation 49.1 H RDW Coeff of Marcelino 14.7 H Plt Count 158 MPV 12.1 H Immature Gran % (Auto) 0.400 Neut % (Auto) 75.0 H Lymph % (Auto) 11.3 L [place] % (Auto) 9.3 Eos % (Auto) 3.4 Baso % (Auto) 0.6 Absolute Neuts (auto) 6.0 Absolute Lymphs (auto) 0.91 Nucleated RBC % 0 PT 31.0 H INR 2.9 Sodium 140 Potassium 4.5 Chloride 107 Carbon Dioxide 28.0 Anion Gap 5 BUN 30 H Creatinine 1.21 Estim Creat Clear Calc 47.21 Est GFR (MDRD) Af Amer 73 Est GFR (MDRD) Non-Af 60 BUN/Creatinine Ratio 24.8 H Glucose 91 Calcium 10.5 H Troponin I High Sens 12 B-Natriuretic Peptide 10/01/22 12:49 WBC RBC Hgb Hct MCV MCH MCHC RDW Std Deviation RDW Coeff of Marcelino Plt Count MPV Immature Gran % (Auto) Neut % (Auto) Lymph % (Auto) [place] % (Auto) Eos % (Auto) Baso % (Auto) Absolute Neuts (auto) Absolute Lymphs (auto) Nucleated RBC % PT INR Sodium Potassium Chloride Carbon Dioxide Anion Gap BUN Creatinine Estim Creat Clear Calc Est GFR (MDRD) Af Amer Est GFR (MDRD) Non-Af BUN/Creatinine Ratio Glucose Calcium Troponin I High Sens B-Natriuretic Peptide 58.3 Radiography Diagnostic Testing: Clinical Impression(s) from Imaging Studies Chest X-Ray 10/01/22 12:46 IMPRESSION: Stable pleural parenchymal changes at the right lung base with a new consolidation in the left lower lobe. Radiographic follow-up is recommended. Electronically Signed: Ruben Hare MD at 14:04 EDT , Chest CT 10/01/22 14:17 IMPRESSION: Large mediastinal lymphadenopathy as compared to prior study. Emphysematous changes and scarring as described. There are 2 tiny nodules in the right lower. Calcified right pleural plaques. Electronically Signed: Ruben Hare MD at 15:12 EDT , Rhythm Strip Rhythm Strip: A-fib Rate: 95 Ectopy: None EKG Initial EKG: Attestation: I personally reviewed and interpreted this EKG as follows: Interpretation: Atrial Fibrillation Comments: Atrial fibrillation rate of 95 bpm Left axis deviation Normal QRS and QTc Minimal voltage criteria for LVH Normal ST segments Differential Diagnosis Chest pain/SOB: pulmonary embolism Reason(s) PE less likely: Positive for patient taking oral anticoagulants, ACS ACS: Positive for no evidence of ACS based on cardiac biomarkers, EKG without ischemia and history not suggestive of ischemia pain, pneumonia Reason(s) pneumonia less likely: Positive for no elevation in WBC count, no noted fever and symptoms not consistent with acute infection and CHF Reason(s) CHF less likely: Positive for no evidence of fluid overload on CXR and BtNP not significantly elevated over normal/baseline Discharge Plan Triage Chief Complaint: Shortness of Breath ED Provider: Layne Arias Dx/Rx/DC Orders Clinical Impression: Hypoxia, Abnormal CT of the chest Prescriptions: No Action atorvastatin [Lipitor] 80 mg tablet 80 mg PO DAILY levothyroxine 125 mcg tablet 125 mcg PO DAILY Fish Oil 500 mg Capsule 500 mg PO DAILY furosemide 40 mg tablet 40 mg PO DAILY metoprolol succinate 100 mg tablet extended release 24 hr 100 mg PO DAILY warfarin 2.5 mg tablet See Rx Instructions .ROUTE .COMPLEX Protocol: Dose Management Condition: Friday Dose/Route: 5 mg Instruction: 2 x 2.5 mg tablets Condition: Friday Dose/Route: 5 mg Instruction: 2 x 2.5 mg tablets Condition: Friday Dose/Route: 7.5 mg Instruction: 3 x 2.5 mg tablets Condition: Friday Dose/Route: 5 mg Instruction: 2 x 2.5 mg tablets Condition: Dose/Route: 5 mg Instruction: 2 x 2.5 mg tablets Condition: Friday Dose/Route: 5 mg Instruction: 2 x 2.5 mg tablets Condition: Friday Dose/Route: 5 mg Instruction: 2 x 2.5 mg tablets Protocol Text: Adjustment Start Date: Friday09/10/22 INR Value: 2.6 INR Date: 09/10/22 Recheck Date: 10/01/22 Rx Instructions: TAKE 2 TABLETS (5MG) BY MOUTH DAILY PER PROTOCOL potassium chloride 20 mEq tablet extended release 20 meq PO DAILY ascorbic acid (vitamin C) 500 mg tablet 1,000 mg PO BID Primary Care Provider: Kevin Boogie Referrals: Kevin Boogie MD [Primary Care Provider] - Disposition Disposition: Acute Care Hospital [facility]
--- NOTE | 2022-10-01 14:17 | CT_ITS ---
STUDY: CT CHEST WITHOUT CONTRAST REASON FOR EXAM: Male, 87 years old. Sob, abnormal CXR RADIATION DOSAGE (If Supplied By Facility): CTDIvol = ( 13.53 ) mGy, DLP = ( 420.02 ) mGycm TECHNIQUE: Transaxial imaging was performed without the administration of intravenous contrast material. Multiplanar coronal and sagittal images were reformatted. Individualized dose optimization techniques were used for this CT. COMPARISON: Comparison is made with prior chest radiograph done earlier in the day as well as prior CT scan of the chest dated June 05, 2020. FINDINGS: CHEST Elevation of the right hemidiaphragm. There is a faint 1 cm noncalcified nodule in the superior aspect of the right lower lobe. There is a 8.1 mm noncalcified nodule in the lateral aspect of the right lower lobe as seen on axial image #64. Increased markings at the lung bases worse on the right side suggestive of a scarring. Calcified right-sided pleural plaques. There are calcifications of the coronary arteries. There are multiple enlarged lymph nodes in the mediastinum. There is also evidence of subcarinal lymphadenopathy. There is a 5.5 cm x 4.6 cm soft tissue mass in the posterior mediastinum at the level of the gastroesophageal junction. Calcified left hilar lymph nodes. Normal unenhanced pulmonary arteries. There is atherosclerotic calcification of the aortic arch with tortuosity and elongation of the aortic arch and descending thoracic aorta. There are multi-level degenerative changes of the thoracic spine. Increased kyphosis. Loss of height of a mid dorsal vertebrae. Left adrenal hyperplasia. CT/Chest without Contrast IMPRESSION: Large mediastinal lymphadenopathy as compared to prior study. Emphysematous changes and scarring as described. There are 2 tiny nodules in the right lower. Calcified right pleural plaques. Electronically Signed: Ruben Hare MD at 15:12 EDT ,
--- NOTE | 2022-10-01 16:15 | HP.PCM.HOS_ITS ---
HPI - General General Date of Service: 10/01/22 Chief Complaint: shortness of breath HPI Narrative JOSE CHAWLA, is a 87 M who presents with 3 weeks of progressive shortness of breath. Mostly with exertion. Patient is not on oxygen at home but did utilize his 's portable condenser for about an hour or so in a few days which seemed to help him. Denied any preceding illness with this. Presented to the emergency room where he had a CAT scan that showed some chronic changes as well as emphysema. They did ambulate the patient and dropped on 88% on room air. [facility] Medical History Abnormality of gait Acid reflux Allergic rhinitis Anemia Anemia requiring transfusions Atherosclerosis of coronary artery of [place] heart without angina pectoris Atrial fibrillation with rapid ventricular response Blood clots in stool Carotid artery disease Colon cancer COPD (chronic obstructive pulmonary disease) Essential hypertension GI bleed (04/25/21) Hyperbilirubinemia Hyperlipidemia Hypothyroidism (acquired) Iron deficiency anemia Nonrheumatic mitral (valve) insufficiency Nonsustained paroxysmal supraventricular tachycardia Obesity Paroxysmal atrial fibrillation Personal history of colonic polyps Prostatic hypertrophy Respiratory failure Urinary retention Home Medications atorvastatin 80 mg tablet (Lipitor) 80 mg PO DAILY CHOLESTEROL 07/14/17 [History Last Taken 10/01/22] ascorbic acid (vitamin C) 500 mg tablet 1,000 mg PO BID SUPPLEMENT 02/15/20 [History Last Taken 10/01/22] levothyroxine 125 mcg tablet 125 mcg PO DAILY THYROID 04/25/21 [History Last Taken 10/01/22] furosemide 40 mg tablet 40 mg PO DAILY FLUID 10/01/22 [History Last Taken 09/30/22] metoprolol succinate 100 mg tablet,extended release 24 hr 100 mg PO DAILY BLOOD PRESSURE 10/01/22 [History Last Taken 10/01/22] omega-3 fatty acids 500 mg capsule 500 mg PO DAILY SUPPLEMENT 10/01/22 [History Last Taken 10/01/22] potassium chloride 20 mEq tablet,extended release 20 meq PO DAILY SUPPLEMENT 10/01/22 [History Last Taken 10/01/22] warfarin 2.5 mg tablet See Rx Instructions .Route .COMPLEX BLOOD THINNER 10/01/22 [History Last Taken 10/01/22] Allergy/AdvReac Type Severity Reaction Status Date / Time adhesive tape Allergy Intermediate dermatitis Verified 10/01/22 12:16 Family History Father , of pneumonia Pneumonia Mother , of CAD CAD (coronary artery disease) Arthritis Sister , Cause unknown Rheumatoid arthritis Oral cancer Sister Arthritis Sister No problems noted. Sister No problems noted. Surgical History H/O coronary artery bypass surgery (12/25/18) History of bladder surgery History of cardioversion (05/31/19) History of colectomy History of colonoscopy (09/30/17) History of esophagogastroduodenoscopy (EGD) (~04/2021) History of mitral valve repair (12/25/18) History of transurethral resection of prostate Status post mitral valve repair (12/25/18) Social History household members: spouse Smoking Status: Former smoker quit date: 06/04/96 pack-years: 40 how long ago did patient quit smokin years ago alcohol intake: never substance use type: does not use caffeine: Yes Type: coffee Number of servings: 2 ROS ROS Narrative No fever or chills. All review of systems were negative except as mentioned above in the history of present illness and the other review of systems. Vital Signs Vital Signs Vital Signs: 10/01/22 12:14 10/01/22 12:54 10/01/22 14:30 Temperature 36.4 C L Temperature Source Temporal Pulse Rate 99 92 89 Respiratory Rate 20 H 19 H 18 Blood Pressure 117/78 107/56 L 133/101 H Blood Pressure Mean 91 73 111 Pulse Ox 94 95 96 Oxygen Delivery Method Room Air Room Air Room Air 10/01/22 15:29 10/01/22 16:09 Temperature 36.7 C 36.2 C L Temperature Source Temporal Temporal Pulse Rate 20 L 89 Respiratory Rate 20 H 22 H Blood Pressure 125/69 H 130/79 H Blood Pressure Mean 87 96 Pulse Ox 96 92 Oxygen Delivery Method Room Air Room Air Weight Weight: 106.1 kg Body Mass Index (BMI) 31.7 Physical Exam Const alert and no apparent distress HEENT normocephalic and head/scalp atraumatic Neck no lymphadenopathy Neck Narrative: No thyromegaly Resp normal respiratory effort and no retractions Resp Narrative: Bibasilar crackles Cardio regular rate, regular rhythm, S1 normal heart sound and S2 normal heart sound GI normal to inspection, nondistended, normoactive bowel sounds, soft to palpation, non-tender and non-distended Extremity normal to inspection Neuro oriented x3, CN's II-XII intact bilaterally and moves all extremities Psych affect normal Results Lab / Micro Data Attestation: I reviewed the patient's lab results. Lab results narrative: Reviewed CT image from today as well as June 2020. Patient has chronic scarring in the right lower lobe as well as some emphysematous changes in. More or less unchanged from 2020. Result Diagrams: 10/01/22 12:49 10/01/22 12:49 Labs: Laboratory Results - last 24 hr 10/01/22 12:49: WBC 8.1, RBC 4.72, Hgb 13.4, Hct 42.8, MCV 90.7, MCH 28.4, MCHC 31.3 L, RDW Std Deviation 49.1 H, RDW Coeff of Marcelino 14.7 H, Plt Count 158, MPV 12.1 H, Immature Gran % (Auto) 0.400, Neut % (Auto) 75.0 H, Lymph % (Auto) 11.3 L, [place] % (Auto) 9.3, Eos % (Auto) 3.4, Baso % (Auto) 0.6, Absolute Neuts (auto) 6.0, Absolute Lymphs (auto) 0.91, Nucleated RBC % 0 10/01/22 12:49: PT 31.0 H, INR 2.9 10/01/22 12:49: Sodium 140, Potassium 4.5, Chloride 107, Carbon Dioxide 28.0, Anion Gap 5, BUN 30 H, Creatinine 1.21, Estim Creat Clear Calc 47.21, Est GFR (MDRD) Af Amer 73, Est GFR (MDRD) Non-Af 60, BUN/Creatinine Ratio 24.8 H, Glucose 91, Calcium 10.5 H, Troponin I High Sens 12 10/01/22 12:49: B-Natriuretic Peptide 58.3 Micro: Microbiology 10/01/22 15:37 Nasal Secretion SARS-CoV-2 & FLU Antigen (Rapid) - Final EKG Initial EKG: Attestation: I personally reviewed and interpreted this EKG as follows: EKG Rhythm Intrepretation: Sinus Rhythm (Wandering pacemaker) and Sinus Tachycardia Radiology Impression Chest X-Ray 10/01/22 12:46 IMPRESSION: Stable pleural parenchymal changes at the right lung base with a new consolidation in the left lower lobe. Radiographic follow-up is recommended. Electronically Signed: Ruben Hare MD at 14:04 EDT , Chest CT 10/01/22 14:17 IMPRESSION: Large mediastinal lymphadenopathy as compared to prior study. Emphysematous changes and scarring as described. There are 2 tiny nodules in the right lower. Calcified right pleural plaques. Electronically Signed: Ruben Hare MD at 15:12 EDT , Assessment & Plan Assessment/Plan (1) COPD exacerbation: PLAN: Patient likely has some chronic scarring and may have some underlying fibrotic changes as well. Patient was ordered a COVID and influenza test in the emergency room, the results are currently pending. I will also order a respiratory panel Treatment will entail prednisone burst 40 mg over 5 days as well as bronchodilators. Patient be brought under observation status and he will have a home oxygen evaluation to see if he would qualify tomorrow. Anticipation is the patient would likely be able to be discharged tomorrow. I discussed with Dr. Manning, pulmonology, and since the patient will likely only be here overnight that the patient would be best suited with outpatient follow-up and pulmonary function test. He and I both agreed to hold off in any formal pulmonary consultation at this point in time given the anticipated short hospitalization. PLAN: Plan Chronic conditions * Paroxysmal atrial fibrillation: Continue with warfarin and metoprolol succinate * Hypothyroidism: Continue levothyroxine * Hyperlipidemia: Continue with atorvastatin. * CAD: Status post CABG. * Hypertension: Continue with metoprolol. VTE prophylaxis: Not indicated as patient is anticoagulated. CODE STATUS: Addressed with patient. Patient wishes to be full code. Charges/Coding Visit Charges Inpatient E&M: 07181 Init Hosp L3
[2022-10-01] MEDS: Ipratropium/Albuterol Sulfate 3 ML AMPUL.NEB INHALATION ×2 (18:58→22:34)
[2022-10-01] MEDS: predniSONE 20 MG Tablet 40 MG PO (19:39)
[2022-10-01] MEDS: 0.9% Saline Lock 10 ML Syringe IV (21:55)
[2022-10-01] MEDS: guaiFENesin 600 MG Tablet PO (21:55)
[2022-10-02] VITALS (14 sets, daily range): BP systolic 117–148; BP diastolic 64–94; PULSE 85–104; RESP 18–24; TEMP 36.5–36.6; O2SAT 85–96
[2022-10-02] MEDS: Ipratropium/Albuterol Sulfate 3 ML AMPUL.NEB INHALATION ×5 (03:08→23:00)
[2022-10-02] MEDS: Nystatin Powder 15gm Bottle 1 APPLIC TOPICAL ×2 (04:48→20:54)
[2022-10-02] MEDS: Levothyroxine 125 MCG Tablet PO (04:52)
[2022-10-02 06:42] LABS: International Normalized Ratio 2.6; Prothrombin Time (Protime)PT. 28.2 SECONDS (11.7-14.9)
[2022-10-02] MEDS: Metoprolol(XL)Succ 100 MG Tablet PO (08:44)
[2022-10-02] MEDS: Furosemide 40 MG Tablet PO (08:44)
[2022-10-02] MEDS: guaiFENesin 600 MG Tablet PO (08:44)
[2022-10-02] MEDS: Potassium Chloride Oral Tablet 20 MEQ PO (08:44)
[2022-10-02] MEDS: Atorvastatin Calcium 80 MG Tablet PO (08:44)
[2022-10-02] MEDS: predniSONE 20 MG Tablet 40 MG PO (08:45)
--- NOTE | 2022-10-02 09:38 | PN.HOSP_ITS ---
Reason for Visit Reason for Visit: Diagnoses Chronic obstructive pulmonary disease with (acute) exacerbation (10/01/22) Subjective Subjective Follow-up for COPD exacerbation. Objective Data Objective Data Vital Signs: Vital Signs Temp Pulse Resp BP Pulse Ox O2 Del Method O2 Flow Rate 97.9 F 97 20 H 148/78 H 95 Nasal Cannula 2 10/02/22 08:26 10/02/22 08:44 10/02/22 08:26 10/02/22 08:26 10/02/22 08:26 10/02/22 08:34 10/02/22 08:34 Oxygen Flow Rate (L/min) 2 Oxygen Delivery Method Nasal Cannula Weight: 231 lb Body Mass Index (BMI) 31.3 Intake & Output: Intake and Output for Last 24 Hours 09/30/22 10/01/22 10/02/22 23:59 23:59 23:59 Intake Total 250 / 250 200 / 200 Balance 250 / 250 200 / 200 Lab / Micro Data Result Diagrams: 10/01/22 12:49 10/01/22 12:49 Labs: Laboratory Results - last 24 hr 10/01/22 12:49: WBC 8.1, RBC 4.72, Hgb 13.4, Hct 42.8, MCV 90.7, MCH 28.4, MCHC 31.3 L, RDW Std Deviation 49.1 H, RDW Coeff of Marcelino 14.7 H, Plt Count 158, MPV 12.1 H, Immature Gran % (Auto) 0.400, Neut % (Auto) 75.0 H, Lymph % (Auto) 11.3 L, Tyrrell % (Auto) 9.3, Eos % (Auto) 3.4, Baso % (Auto) 0.6, Absolute Neuts (auto) 6.0, Absolute Lymphs (auto) 0.91, Nucleated RBC % 0 10/01/22 12:49: PT 31.0 H, INR 2.9 10/01/22 12:49: Sodium 140, Potassium 4.5, Chloride 107, Carbon Dioxide 28.0, Anion Gap 5, BUN 30 H, Creatinine 1.21, Estim Creat Clear Calc 47.21, Est GFR (MDRD) Af Amer 73, Est GFR (MDRD) Non-Af 60, BUN/Creatinine Ratio 24.8 H, Glucose 91, Calcium 10.5 H, Troponin I High Sens 12 10/01/22 12:49: B-Natriuretic Peptide 58.3 10/02/22 05:36: PT 28.2 H, INR 2.6 Micro: Microbiology 10/01/22 19:10 Mucosa - Nasopharyngeal Respiratory Panel (PCR) - Final 10/01/22 15:37 Nasal Secretion SARS-CoV-2 & FLU Antigen (Rapid) - Final Radiography Diagnostic Testing: Radiology Impression Chest X-Ray 10/01/22 12:46 IMPRESSION: Stable pleural parenchymal changes at the right lung base with a new consolidation in the left lower lobe. Radiographic follow-up is recommended. Electronically Signed: Ruben Hare MD at 14:04 EDT , Chest CT 10/01/22 14:17 IMPRESSION: Large mediastinal lymphadenopathy as compared to prior study. Emphysematous changes and scarring as described. There are 2 tiny nodules in the right lower. Calcified right pleural plaques. Electronically Signed: Ruben Hare MD at 15:12 EDT , Rhythm Strip Rhythm Strip: A-fib Rate: 95 Ectopy: None Physical Exam Narrative Physical exam General: Alert, Oriented x3, Cooperative HEENT: Hard of hearing, hearing loss. Atraumatic, PERRLA, EOMI, Normocephalic Oral: Oral mucosa dry. No Gingival or Mucosal Lesions/ Ulcerations Neck: Supple, No JVD, Negative Carotid Bruits Lungs: Air entry diminished in bilateral lung bases more on right lung base. No crepitation/rhonchi Cardiovascular: Regular rate, Regular Rhythm, Normal S1, Normal S2, systolic murmur over LLSB and cardiac apex Abdomen: Bowel Sounds Present, Soft, Non Tender, Non-Distended. Old surgical scar. : No renal angle tenderness. No suprapubic tenderness. Extremities: No edema, Capillary Refill Less than 3 Seconds Skin: No rashes, No breakdown Musculoskeletal: No Tenderness to Palpation of Joints or Extremities Neurological: Cranial nerves II-XII grossly intact, DTR 2+/4 and Symmetrical, Neuro grossly intact Psych/Mental Status: Flat affect. Assessment & Plan Assessment/Plan (1) COPD exacerbation: PLAN: Patient likely has some chronic scarring and may have some underlying fibrotic changes as well. Rapid COVID and influenza antigen are negative. Respiratory panel negative. Patient on prednisone burst therapy for 5 days, bronchodilator, incentive spirometry and PEP. Chest x-ray and CT scan individually reviewed. It shows pleural-parenchymal changes right lung base and consolidation in left lower lobe. CT scan shows a 1 cm noncalcified nodule in the superior aspect of right lower lobe. 5.5 x 4.6 soft detumesce over posterior mediastinum at level of GE junction. Calcified left hilar lymph nodes. Multiple enlarged mediastinal lymph nodes. Plan is to follow-up with contract attorney Dr. Manning after patient is discharged in 2 weeks. Home qualification oxygen test before discharge. Ex-smoker: Patient used to smoke less than a pack per day started in teenage quit 24 years ago. PLAN: Plan Chronic conditions * Paroxysmal atrial fibrillation: Continue with warfarin and metoprolol succinate * Hypothyroidism: Continue levothyroxine * Hyperlipidemia: Continue with atorvastatin. * CAD: Status post CABG. * Hypertension: Continue with metoprolol. 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 He had surgery in 1970 and about 6 cm of small bowel was resected. He said his tumor had recurrence and he required further surgery for total of 3 times. VTE prophylaxis: Not indicated as patient is anticoagulated. CODE STATUS: Addressed with patient. Patient wishes to be full code. Charges/Coding Visit Charges Inpatient E&M: 85903 Subs Hosp L2
--- NOTE | 2022-10-02 13:41 | CHAPLAIN ---
Type of Pastoral Visit _X__ Initial Visit ___ Follow-up Visit ___ On-call Visit ___ General Patient Visit ___ Spiritual Assessment ___ Family Conference ___ Bereavement ___ Rapid Response ___ Code Blue ___ Other (describe below) Pastoral Care Referral From _X__ Patient ___ Family ___ Nurse ___ Physician ___ Bridge Worker Apprentice ___ Pipe Smoker Machine Operator ___ Other (describe below) Sacrament/Intervention _X__ Active listening ___ Anointing ___ Mu-Ism ___ Bereavement ___ Communion ___ Dorothy exploration ___ _X__ Life review _X__ Prayer ___ Reconciliation ___ Sacrament of Sick _X__ Supportive presence ___ Wedding ___ Other (describe below) Pastoral Comments Patient is sitting in chair and welcomes the visit; pt is concerned about being sent home when he wants to breath better; 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
--- NOTE | 2022-10-02 14:43 | CASEMGMT ---
ARTI HARRIS Assessment: Face to Face with pt for initial transition planning/care coordination assessment. ARTI HARRIS introduced self and role at [facility], pt voices understanding and consents to assessment. Pt is A/O x4 and answers all questions appropriately at this time. Pt sitting up in chair with oxygen on in no distress. Care providers, pharmacy, and demographics verified/updated. Admitting Dx: COPD exac PCP:Keagan Specialists:Friend, GI; Kiki, cardio Preferred Pharmacy: [facility] Insurance: [employer], [employer] Prescription Benefit: yes LNOK: Corinne Bradley, ; Prem Alva annika Living Arrangements: Pt lives with in a single story home with 2 steps to enter. Pt reports he is I in ADL's and denies concerns at home. Pt niece gets their groceries and pt does laundry and dishes. Transportation: Pt drives self and denies concerns with transportation. DME/HHC/SNF: Pt has a w/c, cane, walker, pox, raised toilet seat, shower chair and grab bars. Pt denies hx of HHC or SNF stays. Pt states no concerns with going home at time of dc. He declines the need for any therapy or nursing at home despite potentially needing oxygen at home. Pt states his family is able to assist him. Provided pt with a local in network list of DME companies, pt chose [employer]. Pt states no further concerns/needs. CM to follow. Advised pt to ask CM if any further question/concerns/needs arise, voices understanding. Pt Goal: Home Plan: Home, follow oxygen.
--- NOTE | 2022-10-02 15:35 | CASEMGMT ---
ARTI CM in to discuss BROOKE form with patient. RN CM explained BROOKE form, patient voiced understanding. Pt signed form and filed in chart. Pt provided with a copy of signed BROOKE form. Patient had no further questions or concerns at this time.
[2022-10-02] MEDS: guaiFENesin 1,200 MG Tablet 1200 MG PO (20:54)
[2022-10-03] VITALS (8 sets, daily range): BP systolic 116–128; BP diastolic 70–76; PULSE 84–92; RESP 20–22; TEMP 36.4–36.6; O2SAT 94–98
[2022-10-03] MEDS: Levothyroxine 125 MCG Tablet PO (04:17)
[2022-10-03] MEDS: Ipratropium/Albuterol Sulfate 3 ML AMPUL.NEB INHALATION ×2 (07:34→11:12)
--- NOTE | 2022-10-03 07:49 | DCINST_ITS ---
Discharge Instructions Diet Discharge Diet: No restrictions Activity Discharge Activity: Return to Normal Activity Weight Bearing Status: Weight bearing as tolerated Dressing / Incision Call your doctor if you observe: Fever of 101 or Higher, Coldness, Increased Pain, Numbness or Tingling, Change in Color, Inability to urinate, Inability to have a bowel movement, Shortness of breath, Dizziness, Fainting spells, Swelling in the ankles, Chest pain, Prolonged hiccupping, Increased palpitations (irregular heartbeat) and Calf discomfort Follow Up Care When: IN 2 WEEKS Test Results: Test results from this visit will be discussed in further detail at your follow- up appointment, if applicable. Discharge Plan Admission Admit Date/Time: 10/01/22 16:10 Primary Reason for Your Visit: COPD exacerbation Attending Provider: Prakash Arevalo Primary Care Provider: Kevin Boogie Consulting Providers: Kevin Hardy Discharge Orders/Prescriptions Prescriptions: New warfarin [Jantoven] 7.5 mg Tablet 7.5 mg PO Tu@1700 Qty: 0 0RF prednisone 20 mg Tablet 40 mg PO BREAKFAST 4 Days Qty: 8 0RF warfarin [Jantoven] 5 mg Tablet 5 mg PO SuMoWeThFr@1700 Qty: 30 0RF Mucus Relief ER 1,200 mg Tablet Extended Release 12hr 1,200 mg PO BID 7 Days Qty: 14 0RF pantoprazole [Protonix] 40 mg tablet,delayed release (DR/EC) 40 mg PO DAILY Qty: 30 2RF albuterol sulfate 90 mcg/actuation HFA aerosol inhaler 1 puff inhalation Q6H PRN (Reason: shortness of breath or wheezing) Qty: 8.5 0RF Continued atorvastatin [Lipitor] 80 mg tablet 80 mg PO DAILY levothyroxine 125 mcg tablet 125 mcg PO DAILY omega-3 fatty acids 500 mg Capsule 500 mg PO DAILY furosemide 40 mg tablet 40 mg PO DAILY metoprolol succinate 100 mg tablet extended release 24 hr 100 mg PO DAILY potassium chloride 20 mEq tablet extended release 20 meq PO DAILY ascorbic acid (vitamin C) 500 mg tablet 1,000 mg PO BID Discontinued warfarin 2.5 mg tablet See Rx Instructions .ROUTE .COMPLEX Protocol: Dose Management Condition: Friday Dose/Route: 5 mg Instruction: 2 x 2.5 mg tablets Condition: Friday Dose/Route: 5 mg Instruction: 2 x 2.5 mg tablets Condition: Friday Dose/Route: 7.5 mg Instruction: 3 x 2.5 mg tablets Condition: Friday Dose/Route: 5 mg Instruction: 2 x 2.5 mg tablets Condition: Dose/Route: 5 mg Instruction: 2 x 2.5 mg tablets Condition: Friday Dose/Route: 5 mg Instruction: 2 x 2.5 mg tablets Condition: Friday Dose/Route: 5 mg Instruction: 2 x 2.5 mg tablets Protocol Text: Adjustment Start Date: Friday09/10/22 INR Value: 2.6 INR Date: 09/10/22 Recheck Date: 10/01/22 Rx Instructions: TAKE 2 TABLETS (5MG) BY MOUTH DAILY PER PROTOCOL Referrals / Follow Up: Kevin Boogie MD [Primary Care Provider] - Marcos Manning DO [Med Staff - Active Staff] - Within 2 Weeks (for PFT, SUSPECTED COPD) Disposition Disposition (needs filled in before D/C Order can be placed): Home, Self Care
[2022-10-03] MEDS: predniSONE 20 MG Tablet 40 MG PO (08:25)
[2022-10-03] MEDS: Potassium Chloride Oral Tablet 20 MEQ PO (08:25)
[2022-10-03] MEDS: Nystatin Powder 15gm Bottle 1 APPLIC TOPICAL (08:25)
--- NOTE | 2022-10-03 09:11 | DS.PCM_ITS ---
Providers Date of Admission: 10/01/22 Date of Discharge: 10/03/22 Primary Care Physician: Dr. Kevin Boogie MD Reason For Visit: COPD EXACERBATION Diagnosis Discharge Diagnosis (1) COPD exacerbation: Status: Chronic Code(s): J44.1 - Chronic obstructive pulmonary disease with (acute) exacerbation Plan: Patient likely has some chronic scarring and may have some underlying fibrotic changes as well. Rapid COVID and influenza antigen are negative. Respiratory panel negative. Patient on prednisone burst therapy for 5 days, bronchodilator, incentive spirometry and PEP. Chest x-ray and CT scan individually reviewed. It shows pleural-parenchymal changes right lung base and consolidation in left lower lobe. CT scan shows a 1 cm noncalcified nodule in the superior aspect of right lower lobe. 5.5 x 4.6 soft detumesce over posterior mediastinum at level of GE junction. Calcified left hilar lymph nodes. Multiple enlarged mediastinal lymph nodes. 10/03: Blood pressure is normal. Patient pulse ox 94% on room air. Dyspnea has much improved. ready for discharge.Home qualification oxygen test before discharge.Plan is to follow-up with biometrics technician Dr. Manning post COPD and abnorm al CT scan after patient is discharged in 2 weeks. Ex-smoker: Patient used to smoke less than a pack per day started in teenage quit 24 years ago. Plan Chronic conditions * Paroxysmal atrial fibrillation: Continue with warfarin and metoprolol succina te * Hypothyroidism: Continue levothyroxine * Hyperlipidemia: Continue with atorvastatin. * CAD: Status post CABG. * Hypertension: Continue with metoprolol. 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 He had surgery in 1970 and about 6 cm of small bowel was resected. He said his tumor had recurrence and he required further surgery for total of 3 times. VTE prophylaxis: Not indicated as patient is anticoagulated. CODE STATUS: Addressed with patient. Patient wishes to be full code. Note Medications at Discharge Home Medications atorvastatin 80 mg tablet (Lipitor) 80 mg PO DAILY CHOLESTEROL 07/14/17 ascorbic acid (vitamin C) 500 mg tablet 1,000 mg PO BID SUPPLEMENT 02/15/20 levothyroxine 125 mcg tablet 125 mcg PO DAILY THYROID 04/25/21 furosemide 40 mg tablet 40 mg PO DAILY FLUID 10/01/22 metoprolol succinate 100 mg tablet,extended release 24 hr 100 mg PO DAILY BLOOD PRESSURE 10/01/22 omega-3 fatty acids 500 mg capsule 500 mg PO DAILY SUPPLEMENT 10/01/22 potassium chloride 20 mEq tablet,extended release 20 meq PO DAILY SUPPLEMENT 10/01/22 albuterol sulfate 90 mcg/actuation aerosol inhaler 1 puff inhalation Q6H PRN shortness of breath or wheezing #8.5 grams 10/03/22 guaifenesin 1,200 mg tablet, extended release 12 hr (Mucus Relief ER) 1,200 mg PO BID 7 days #14 tabs 10/03/22 pantoprazole 40 mg tablet,delayed release (Protonix) 40 mg PO DAILY #30 tabs 10/03/22 prednisone 20 mg tablet 40 mg PO BREAKFAST 4 days #8 tabs 10/03/22 warfarin 5 mg tablet (Jantoven) 5 mg PO SuMoWeThFrSa@1700 #30 tabs 10/03/22 warfarin 7.5 mg tablet (Jantoven) 7.5 mg PO Tu@1700 #0 tabs 10/03/22 Physical Exam Narrative Physical exam General: Alert, Oriented x3, Cooperative HEENT: Hard of hearing, hearing loss. Atraumatic, PERRLA, EOMI, Normocephalic Oral: Oral mucosa.. No Gingival or Mucosal Lesions/ Ulcerations Neck: Supple, No JVD, Negative Carotid Bruits Lungs: Air entry diminished in bilateral lung bases more on right lung base. No crepitation/rhonchi Cardiovascular: Regular rate, Regular Rhythm, Normal S1, Normal S2, systolic murmur over LLSB and cardiac apex Abdomen: Bowel Sounds Present, Soft, Non Tender, Non-Distended. Old surgical scar. : No renal angle tenderness. No suprapubic tenderness. Extremities: No edema, Capillary Refill Less than 3 Seconds Skin: No rashes, No breakdown Musculoskeletal: No Tenderness to Palpation of Joints or Extremities Neurological: Cranial nerves II-XII grossly intact, DTR 2+/4 and Symmetrical, Neuro grossly intact Psych/Mental Status: Flat affect. Weight / BMI Weight Weight: 231 lb Body Mass Index (BMI) 31.3 ABG / Lab / Microbiology Data Result Diagrams: 10/01/22 12:49 10/01/22 12:49 Microbiology: Microbiology 10/01/22 19:10 Mucosa - Nasopharyngeal Respiratory Panel (PCR) - Final 10/01/22 15:37 Nasal Secretion SARS-CoV-2 & FLU Antigen (Rapid) - Final D/C Instructions Discharge Diet: No restrictions Weight Bearing Status: Weight bearing as tolerated Call your doctor if you observe: Fever of 101 or Higher, Coldness, Increased Pain, Numbness or Tingling, Change in Color, Inability to urinate, Inability to have a bowel movement, Shortness of breath, Dizziness, Fainting spells, Swelling in the ankles, Chest pain, Prolonged hiccupping, Increased palpitations (irregular heartbeat) and Calf discomfort When: IN 2 WEEKS Meaningful Use Info Meaningful Use Diagnoses (Choose all that apply): None applicable Discharge Plan Admission Admit Date/Time: 10/01/22 16:10 Primary Reason for Your Visit: COPD exacerbation Attending Provider: Prakash Arevalo Primary Care Provider: Kevin Boogie Consulting Providers: Kevin Hardy Discharge Orders/Prescriptions Prescriptions: New warfarin [Jantoven] 7.5 mg Tablet 7.5 mg PO Tu@1700 Qty: 0 0RF prednisone 20 mg Tablet 40 mg PO BREAKFAST 4 Days Qty: 8 0RF warfarin [Jantoven] 5 mg Tablet 5 mg PO SuMoWeThFrSa@1700 Qty: 30 0RF Mucus Relief ER 1,200 mg Tablet Extended Release 12hr 1,200 mg PO BID 7 Days Qty: 14 0RF pantoprazole [Protonix] 40 mg tablet,delayed release (DR/EC) 40 mg PO DAILY Qty: 30 2RF albuterol sulfate 90 mcg/actuation HFA aerosol inhaler 1 puff inhalation Q6H PRN (Reason: shortness of breath or wheezing) Qty: 8.5 0RF Continued atorvastatin [Lipitor] 80 mg tablet 80 mg PO DAILY levothyroxine 125 mcg tablet 125 mcg PO DAILY omega-3 fatty acids 500 mg Capsule 500 mg PO DAILY furosemide 40 mg tablet 40 mg PO DAILY metoprolol succinate 100 mg tablet extended release 24 hr 100 mg PO DAILY potassium chloride 20 mEq tablet extended release 20 meq PO DAILY ascorbic acid (vitamin C) 500 mg tablet 1,000 mg PO BID Discontinued warfarin 2.5 mg tablet See Rx Instructions .ROUTE .COMPLEX Protocol: Dose Management Condition: Friday Dose/Route: 5 mg Instruction: 2 x 2.5 mg tablets Condition: Friday Dose/Route: 5 mg Instruction: 2 x 2.5 mg tablets Condition: Friday Dose/Route: 7.5 mg Instruction: 3 x 2.5 mg tablets Condition: Friday Dose/Route: 5 mg Instruction: 2 x 2.5 mg tablets Condition: Dose/Route: 5 mg Instruction: 2 x 2.5 mg tablets Condition: Friday Dose/Route: 5 mg Instruction: 2 x 2.5 mg tablets Condition: Friday Dose/Route: 5 mg Instruction: 2 x 2.5 mg tablets Protocol Text: Adjustment Start Date: Friday09/10/22 INR Value: 2.6 INR Date: 09/10/22 Recheck Date: 10/01/22 Rx Instructions: TAKE 2 TABLETS (5MG) BY MOUTH DAILY PER PROTOCOL Referrals / Follow Up: Marcos Manning DO [Med Staff - Active Staff] - Within 2 Weeks (for PFT, SUSPECTED COPD) Kevin Boogie MD [Primary Care Provider] - Disposition Disposition (needs filled in before D/C Order can be placed): Home, Self Care Charges/Coding Visit Charges Inpatient E&M: 99184 Disch Hosp >30min
[2022-10-03] MEDS: Furosemide 40 MG Tablet PO (10:29)
[2022-10-03] MEDS: Atorvastatin Calcium 80 MG Tablet PO (10:29)
[2022-10-03] MEDS: guaiFENesin 1,200 MG Tablet 1200 MG PO (10:29)
[2022-10-03] MEDS: Metoprolol(XL)Succ 100 MG Tablet PO (10:29)
--- NOTE | 2022-10-03 10:43 | CASEMGMT ---
ARTI CM NOTE: Per ARTI Mackey, home O2 testing has been completed and pt does not qualify for Home O2. Tanner PRINCE RN CM
== END 2022-10-03 13:45 | disposition home or self-care (01) ==
LOC: ED 16:40 → MS3 16:50
PROVIDERS: Emergency Provider Emergency Medicine; PCP Family Medicine; Visit Provider Internal Medicine
DX: J44.1 Chronic obstructive pulmonary disease with (acute) exacerbation (principal); I48.0 Paroxysmal atrial fibrillation; I10 Essential (primary) hypertension; R59.0 Localized enlarged lymph nodes; E78.5 Hyperlipidemia, unspecified; R60.0 Localized edema; I25.10 Atherosclerotic heart disease of native coronary artery without angina pectoris; Z87.891 Personal history of nicotine dependence; Z79.899 Other long term (current) drug therapy; Z79.01 Long term (current) use of anticoagulants; Z95.1 Presence of aortocoronary bypass graft; E03.9 Hypothyroidism, unspecified; Z79.890 Hormone replacement therapy; K21.9 Gastro-esophageal reflux disease without esophagitis; R06.02 Shortness of breath
CPT/HCPCS: 36415; 71046; 71250; 80048; 83880; 84484; 85025; 85610; 87428; 87633; 93005; 94640; 94668; 94762; 97116; 97162; 97166; 97530; 97535; 97802; 99221; 99283; A4216; G0378

== ENCOUNTER → 2022-10-17 | Outpatient (CLI) | payer MEDICARE, OTHER, SELFPAY ==
--- NOTE | 2022-10-17 15:19 | RAD_ITS ---
INDICATION: COPD EXAMINATION/TECHNIQUE: X-RAY - XR Chest 2 Views COMPARISON: 10/01/2022. FINDINGS: LINES/DEVICES: None. LUNGS: Stable pleural thickening in the right lower lung unchanged as compared to 10/01/[address] from that date did not demonstrate a pleural effusion. Stable masslike opacification of the left lower lung. No evidence of a pneumothorax. MEDIASTINUM AND CARDIOVASCULAR STRUCTURES: Cardiac silhouette is normal in size and contour. Mediastinal lymphadenopathy is again seen, predominantly on the left. BONES AND SOFT TISSUES: No acute abnormality. RAD/Chest PA and Lateral IMPRESSION: 1. Stable pleural thickening in the right lower lung. 2. Left lower lung density concerning for neoplasm. 3. Mediastinal lymphadenopathy. Electronically Signed: Brandon Collado DO at 22:14 EDT ,
[2022-10-17 18:26] LABS: Absolute Lymphocyte Count 0.88 X10^3/uL (0.83-4.51); Absolute Neutrophil Count 7.6 X10^3/uL (2.0-7.7); Basophil# 0.06 X10^3/uL; Basophil% 0.6 % (0-1); Eosinophil# 0.22 X10^3/uL; Eosinophils% 2.3 % (0-5); Hematocrit 44.4 % (40-54); Hemoglobin 13.5 g/dL (13.0-16.5); Lymphocyte # 0.88 X10^3/ul (0.83-4.51); Lymphocyte % 9.1 % (19-41); Mean Corp Hgb Conc 30.4 g/dL (32-36); Mean Corpuscular Hgb 28.1 pg (27.0-32.0); Mean Corpuscular Volume 92.5 fL (80-94); Mean Platelet Vol. 12.6 fl (6.2-12.0); Monocyte# 0.86 X10^3/uL; Monocyte% 8.9 % (0-10); NRBC Flagged by Analyzer 0 % (0-5); Neutrophil # 7.62 X10^3/uL (2.7-7.7); Neutrophil % 78.6 % (47-70); Platelet Count 160 K/mm3 (150-450); RBC Distribution Width CV 15.3 % (11.6-14.6); RBC Distribution Width SD 52.2 fl (35.1-43.9); White Blood Count 9.7 K/mm3 (4.4-11.0)
[2022-10-17 19:14] LABS: ALB/GLOB Ratio 0.7 RATIO (0.9-2.4); AST(SGOT) 34 U/L (15-37); Alanine Aminotransfer ALT/SGPT 20 U/L (16-61); Alkaline Phosphatase 152 U/L (45-117); Anion Gap 5 (5-15); BUN 25 mg/dL (7-18); BUN/Creat Ratio 21.4 RATIO (10-20); Calcium,Total 10.3 mg/dL (8.5-10.1); Chloride 107 mmol/L (98-107); Creatinine, Serum 1.17 mg/dL (0.70-1.30); EST Glomerular Filtration Rate 63 mL/min (>60); Est Glom Filt Rate - Afr Amer 76 mL/min (>60); Globulin 4.1 g/dL (2.2-4.2); Glucose 94 mg/dL (74-106); Potassium 4.4 mmol/L (3.5-5.1); Protein, Total 7.1 g/dL (6.4-8.2); Sodium Level 139 mmol/L (136-145)
[2022-10-18 08:39] LABS: BNP,B-Type NATRIURETIC PEPTIDE 58.5 pg/mL (0-100)
== END | disposition home or self-care (01) ==
LOC: MTLAB 15:18
PROVIDERS: PCP Family Medicine; Referring Provider Family Medicine; Visit Provider Family Medicine
DX: I50.32 Chronic diastolic (congestive) heart failure (principal); R06.4 Hyperventilation
CPT/HCPCS: 36415; 71046; 80053; 83880; 85025

== ENCOUNTER 2022-10-29 10:08 | Outpatient (RCR) | payer MEDICARE, OTHER, SELFPAY ==
[2022-09-29 02:11] VITALS: BMI 31.6
[2022-10-29 10:46] LABS: International Normalized Ratio 2.1; Prothrombin Time (Protime)PT. 23.4 SECONDS (11.7-14.9)
== END 2022-10-29 11:00 | disposition home or self-care (01) ==
LOC: LAB 10:08
PROVIDERS: Family Provider Family Medicine; PCP Family Medicine; Referring Provider Internal Medicine Cardiovascular Disease; Visit Provider Internal Medicine Cardiovascular Disease
DX: I48.0 Paroxysmal atrial fibrillation (principal); Z79.01 Long term (current) use of anticoagulants
CPT/HCPCS: 36415; 85610

== ENCOUNTER → 2022-10-30 | Outpatient (CLI) | payer MEDICARE, OTHER, SELFPAY ==
--- NOTE | 2022-10-30 06:44 | CT_ITS ---
STUDY: CT CHEST WITHOUT CONTRAST REASON FOR EXAM: Male, 87 years old. Lung nodule seen on x-ray. Left Lower. RADIATION DOSAGE (If Supplied By Facility): CTDIvol = ( 20.15 ) mGy, DLP = ( 649.45 ) mGycm TECHNIQUE: Transaxial imaging was performed without the administration of intravenous contrast material. Multiplanar coronal and sagittal images were reformatted. Individualized dose optimization techniques were used for this CT. COMPARISON: Comparison is made with prior study dated October 01, 2022. FINDINGS: CHEST Stable faint 1 cm noncalcified nodule in the superior aspect of the right lower lobe axial Image #40. Calcified right pleural plaques. Small left pleural effusion. Stable increased markings at the lung bases suggestive of a atelectasis and/or scarring. Sternal cerclage wires and vascular clips are present from a prior sternotomy and coronary artery bypass graft procedure (CABG). There are calcifications of the coronary arteries. Right paracardiac lymphadenopathy. Stable extensive mediastinal lymphadenopathy. Stable bilateral hilar lymphadenopathy. Normal unenhanced pulmonary arteries. There is atherosclerotic calcification of the aortic arch with tortuosity and elongation of the aortic arch and descending thoracic aorta. There are multi-level degenerative changes of the thoracic spine. Increased kyphosis. Loss of height of a mid dorsal vertebra. Hyperplasia of the left adrenal gland. CT/Chest without Contrast IMPRESSION: Essentially stable examination except for new left pleural effusion. Electronically Signed: Ruben Hare MD at 14:54 EDT ,
== END | disposition home or self-care (01) ==
LOC: CT 06:40
PROVIDERS: PCP Family Medicine; Visit Provider Family Medicine
DX: R91.1 Solitary pulmonary nodule (principal)
CPT/HCPCS: 71250

== ENCOUNTER 2022-11-11 08:46 | Inpatient (IN) | payer MEDICARE, OTHER, SELFPAY ==
[2022-11-11] VITALS (13 sets, daily range): BP systolic 106–120; BP diastolic 61–95; PULSE 90–126; RESP 16–24; TEMP 36.1–36.9; O2SAT 91–97; BMI 31.8; BMI 30.5
--- NOTE | 2022-11-11 09:02 | EDS_ITS ---
HPI History of Present Illness Chief Complaint: Back [facility] Medical History Abnormality of gait Acid reflux Allergic rhinitis Anemia Anemia requiring transfusions Atherosclerosis of coronary artery of [place] heart without angina pectoris Atrial fibrillation with rapid ventricular response Blood clots in stool Cancer Carotid artery disease Colon cancer COPD (chronic obstructive pulmonary disease) Essential hypertension Former smoker GERD (gastroesophageal reflux disease) GI bleed (04/25/21) Hyperbilirubinemia Hyperlipidemia Hypothyroidism (acquired) Iron deficiency anemia Nonrheumatic mitral (valve) insufficiency Nonsustained paroxysmal supraventricular tachycardia Obesity Paroxysmal atrial fibrillation Personal history of colonic polyps Prostatic hypertrophy Pulmonary embolism Respiratory failure Urinary retention Home Medications atorvastatin 80 mg tablet (Lipitor) 80 mg PO DAILY CHOLESTEROL 07/14/17 [History Last Taken 11/10/22] ascorbic acid (vitamin C) 500 mg tablet 1,000 mg PO BID SUPPLEMENT 02/15/20 [History Last Taken 11/10/22] levothyroxine 125 mcg tablet 125 mcg PO DAILY THYROID 04/25/21 [History Last Taken 11/10/22] furosemide 40 mg tablet 40 mg PO DAILY FLUID 10/01/22 [History Last Taken 11/10/22] metoprolol succinate 100 mg tablet,extended release 24 hr 100 mg PO DAILY BLOOD PRESSURE 10/01/22 [History Last Taken 11/10/22] omega-3 fatty acids 500 mg capsule 500 mg PO DAILY SUPPLEMENT 10/01/22 [History Last Taken 11/10/22] potassium chloride 20 mEq tablet,extended release 20 meq PO DAILY SUPPLEMENT 10/01/22 [History Last Taken 11/10/22] albuterol sulfate 90 mcg/actuation aerosol inhaler 1 puff inhalation Q6H PRN shortness of breath or wheezing #8.5 grams 10/03/22 [Rx Last Taken 11/10/22] warfarin 5 mg tablet (Jantoven) 5 mg PO SuMoWeThFrSa@1700 #30 tabs 10/03/22 [Rx Last Taken 11/10/22] warfarin 7.5 mg tablet (Jantoven) 7.5 mg PO Tu@1700 #0 tabs 10/03/22 [Rx Last Taken 11/10/22] metolazone 2.5 mg tablet See Rx Instructions PO Q OTHER DAY 10/18/22 [History Last Taken 11/10/22] Allergy/AdvReac Type Severity Reaction Status Date / Time adhesive tape Allergy Intermediate dermatitis Verified 11/11/22 08:47 Family History Father , of pneumonia Pneumonia Mother , of CAD CAD (coronary artery disease) Arthritis Sister , Cause unknown Rheumatoid arthritis Oral cancer Sister Arthritis Sister No problems noted. Sister No problems noted. Surgical History H/O coronary artery bypass surgery (12/25/18) History of bladder surgery History of cardioversion (05/31/19) History of colectomy History of colonoscopy (09/30/17) History of esophagogastroduodenoscopy (EGD) (~04/2021) History of mitral valve repair (12/25/18) History of transurethral resection of prostate Status post mitral valve repair (12/25/18) Social History household members: spouse Smoking Status: Former smoker quit date: 06/04/96 pack-years: 40 how long ago did patient quit smokin years ago alcohol intake: never substance use type: does not use caffeine: Yes Type: coffee Number of servings: 2 EXAM Physical Exam Const Vital Signs: 11/11/22 08:48 11/11/22 08:52 11/11/22 08:57 Temperature 97.7 F L Temperature Source Oral Pulse Rate 112 H 126 H Respiratory Rate 22 H 22 H Respiratory Effort Short of Breath Labored Respiratory Pattern Tachypnea Blood Pressure 117/95 H Blood Pressure Mean 102 Pulse Ox 93 93 Oxygen Delivery Method Nasal Cannula Nasal Cannula Oxygen Flow Rate (L/min) 3 3 11/11/22 10:42 11/11/22 11:15 11/11/22 12:25 Temperature 97 F L Temperature Source Temporal Pulse Rate 95 114 H Respiratory Rate 23 H 22 H Respiratory Effort Respiratory Pattern Blood Pressure 120/81 H 106/87 H Blood Pressure Mean 94 93 Pulse Ox 92 92 91 Oxygen Delivery Method Nasal Cannula Nasal Cannula Nasal Cannula Oxygen Flow Rate (L/min) 3 3 MDM MDM MDM Narrative Medical decision making narrative: HISTORY OF PRESENT ILLNESS: 87-year-old maleHere with chief complaint of back pain and weakness for 2 weeks. He notes this has been constant, worse with movement. 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 States he may have hurt his back lifting and caring for her. Notes difficulty ambulating secondary to diffuse weakness he denies any abdominal pain. Denies a history of abdominal aneurysms. Denies any new shortness of breath or chest pain. Denies any urinary complaints. No chest pain endorsed. Patient denies any saddle anesthesia, urinary tension, bowel or bladder incontinence, lower extremity weakness, fever or IV drug use, no recent spinal manipulation or surgery, no recent urinary catheterization. REVIEW OF SYSTEMS: Pertinent positives: Back pain, weakness Pertinent negatives: Bowel or bladder incontinence, urinary retention, loss of movement or sensation in lower extremities PHYSICAL EXAM: Nursing triage notes reviewed, Vital signs reviewed Constitutional: please see mdm HENT: MMM Eyes: Pupils equal round and reactive to light, Extraocular muscles intact Neck: No stridor, no JVD, full neck ROM Lungs: Clear to auscultation, No wheezing or rales. No increased work of breathing, no conversational dyspnea, no accessory muscle use, no nasal flaring. No respiratory distress noted Heart: Regular rate and rhythm, No murmurs, No rubs and No gallops, 2+ distal pulses (radial, femoral, posterior tibial) in all extremities Abdomen: Soft, there is no tenderness, rigidity, rebound or guarding, no obvious peritoneal signs, no palpable pulsatile abdominal masses, no auscultated abdominal bruit : No CVAT Extremities: No edema Neuro: No focal neurological deficits, cranial nerves II through XII intact, 5/5 strength in all extremities. Intact sensation to light touch in all extremities, 2+ reflexes bilateral patella tendons. Normal gait. No ataxia. Intact sensat ion L1-S1 dermatomal distributions. Intact 5/5 strength in hip flexion (T12- L3). Knee extension (L2-L4). Ankle dorsiflexion (L4-L5). Ankle plantar flexion (S1). Great toe extension (L5). 2+ patellar and Achilles DTRs. Skin: No rash or lesions noted MEDICAL DECISION MAKING: Chief Complaint: Back pain, diffuse weakness External records reviewed: No recent advanced imaging the abdomen or pelvis, last, last echocardiogram in 2019 shows ejection fraction 60% Factors affecting care: History of atrial fibrillation on warfarin, GI bleed, CAD, CABG, hypertension Social determinants of health: Elderly History obtained from others: The patient's son Consults: Internal medicine ALL IMAGES (IF OBTAINED) HAVE BEEN PERSONALLY REVIEWED AND INTERPRETED BY MYSELF. MDM Narrative: Patient was initially tachycardic, normotensive, tachypneic on 3 L baseline O2. No focal neurologic deficits on my initial exam I considered the following differential diagnosis: Musculoskeletal back pain, maurice mbar radiculopathy, fracture dislocation of the spine, UTI, AAA, nephrolithiasis, pyelonephritis I obtained a broad lab and imaging work-up to further elucidate the etiology the patient's complaint. I treated the patient with oral oxycodone of his oral home metoprolol given A-fib with RVR labs and images were remarkable for no evidence of significant electrolyte abnormalities, endorgan hypoperfusion, liver dysfunction. Patient INR was supratherapeutic earlier with no significant anemia. Heart rate improved after oral metoprolol. Imaging revealed no evidence of AAA, bony abnormality of thoracic lumbar spine or evidence of pneumonia The patient and/or family, caregivers express understanding. The patient and/or family, caregivers agrees with the plan. Total critical care time today provided was at least 0 minutes. This excludes separately billable procedures. Critical care time (if documented) is secondary to the patient having high probability of clinically significant/life th reatening deterioration in the patient's condition which required my urgent intervention. Shared decision making: I will have a discussion with the patient and or visitors regarding risk/benefits of further testing or admission. They will be made aware of of the risk/benefits inherent in this decision they will be given the opportunity to voice understanding. Lab Data Attestation: I reviewed the patient's lab results. Lab results narrative: EKG with A-fib with RVR, left axis deviation, no obvious STEMI BMP with no [place] abnormalities, no anion gap to suggest endorgan perfusion, no acute kidney injury LFTs show no evidence of hepatobiliary pathology. Lipase mildly elevated however does not meet criteria for acute pancreatitis. INR supratherapeutic Troponin is negative, no evidence of myocardial ischemia BNP mildly elevated consistent with increased transmural pressure, volume over load Labs: Laboratory Results - last 24 hr 11/11/22 11/11/22 11/11/22 10:30 10:30 10:30 WBC 9.3 RBC 4.31 L Hgb 11.9 L Hct 39.5 L MCV 91.6 MCH 27.6 MCHC 30.1 L RDW Std Deviation 52.3 H RDW Coeff of Marcelino 15.7 H Plt Count 178 MPV 11.6 Immature Gran % (Auto) 0.600 Neut % (Auto) 84.9 H Lymph % (Auto) 5.6 L Isabella % (Auto) 7.8 Eos % (Auto) 0.6 Baso % (Auto) 0.5 Absolute Neuts (auto) 7.8 H Absolute Lymphs (auto) 0.52 L Nucleated RBC % 0 Differential Comment SCANNED PT 36.3 H INR 3.6 Sodium 138 Potassium 4.9 Chloride 104 Carbon Dioxide 32.0 Anion Gap 2 L BUN 32 H Creatinine 1.31 H Estim Creat Clear Calc 43.60 Est GFR (MDRD) Af Amer 67 Est GFR (MDRD) Non-Af 55 L BUN/Creatinine Ratio 24.4 H Glucose 91 Calcium 10.9 H Total Bilirubin 1.20 H Direct Bilirubin 0.37 H AST 33 ALT 15 L Alkaline Phosphatase 146 H Troponin I High Sens B-Natriuretic Peptide Total Protein 7.2 Albumin 2.9 L Globulin 4.3 H Albumin/Globulin Ratio 0.7 L Lipase 77 H Urine Color Urine Clarity Urine pH Ur Specific [place] Urine Protein Urine Glucose (UA) Urine Ketones Urine Occult Blood Urine Nitrite Urine Bilirubin Urine Urobilinogen Ur Leukocyte Esterase Urine RBC Urine WBC Ur Squamous Epith Cells Urine Bacteria Urine Mucus 11/11/22 11/11/22 11/11/22 10:30 10:30 12:24 WBC RBC Hgb Hct MCV MCH MCHC RDW Std Deviation RDW Coeff of Marcelino Plt Count MPV Immature Gran % (Auto) Neut % (Auto) Lymph % (Auto) Isabella % (Auto) Eos % (Auto) Baso % (Auto) Absolute Neuts (auto) Absolute Lymphs (auto) Nucleated RBC % Differential Comment PT INR Sodium Potassium Chloride Carbon Dioxide Anion Gap BUN Creatinine Estim Creat Clear Calc Est GFR (MDRD) Af Amer Est GFR (MDRD) Non-Af BUN/Creatinine Ratio Glucose Calcium Total Bilirubin Direct Bilirubin AST ALT Alkaline Phosphatase Troponin I High Sens 23 B-Natriuretic Peptide 126.7 H Total Protein Albumin Globulin Albumin/Globulin Ratio Lipase Urine Color Yellow Urine Clarity Sl. Cloudy Urine pH 5.0 Ur Specific [place] 1.020 Urine Protein 15 H Urine Glucose (UA) Normal Urine Ketones Negative Urine Occult Blood 10 H Urine Nitrite Negative Urine Bilirubin Negative Urine Urobilinogen 4 H Ur Leukocyte Esterase Negative Urine RBC 0-5 SEEN Urine WBC 0 SEEN Ur Squamous Epith Cells 0-5 SEEN Urine Bacteria 1+ Urine Mucus 0 SEEN Radiography Chest X-Ray - ED: Read by ED Physician Diagnostic Testing: Clinical Impression(s) from Imaging Studies Abdomen/Pelvis CT 11/11/22 09:32 IMPRESSION: Large mass in the left lower lobe with the bibasilar pulmonary masses and small effusion. Multiple gallstones. Extensive atherosclerotic calcific plaques of the abdominal aorta and major visceral branches. Right renal cyst. Anastomosis is seen in the mid descending colon with focally dilated bowel at that site. Electronically Signed: Ruben Hare MD at 11:43 EDT , Lumbar Spine CT 11/11/22 09:32 IMPRESSION: Multilevel degenerative changes, as described above. Loss of height of L4 vertebrae. Electronically Signed: Ruben Hare MD at 11:47 EDT , Thoracic Spine CT 11/11/22 09:32 IMPRESSION: Increased kyphosis with degenerative changes and loss of height of a mid dorsal vertebrae. Electronically Signed: Ruben Hare MD at 11:45 EDT , Chest X-Ray 11/11/22 09:35 IMPRESSION: Findings in keeping with a mild degree of CHF superimposed on basilar scarring worse on the right side. Electronically Signed: Ruben Hare MD at 11:14 EDT , Chest x-ray read interpreted by myself. Chest x-ray shows evidence of volume overload. Discharge Plan Dx/Rx/DC Orders Clinical Impression: Abnormal gait, Back pain, Supratherapeutic INR, CHF (congestive heart failure), Atrial fibrillation with rapid ventricular response Disposition Disposition: Acute Care Hospital [facility]
--- NOTE | 2022-11-11 09:32 | CT_ITS ---
STUDY: CT LUMBAR SPINE WITHOUT CONTRAST REASON FOR EXAM: Male, 87 years old. Back pain RADIATION DOSAGE (If Supplied By Facility): CTDIvol = ( 34.79 ) mGy, DLP = ( 1019.58 ) mGycm TECHNIQUE: The patient was scanned in a multi detector CT scanner. High resolution transaxial imaging was performed. Images were obtained from L1 to S1 vertebral level. Sagittal and coronal images were reconstructed. Individualized dose optimization techniques were used for this CT. COMPARISON: None FINDINGS: Normal lumbar lordosis. There is no substantial scoliosis. Spondylosis. L1-2: Facet joint osteoarthritis and hypertrophy. Spondylosis. No significant stenosis seen. L2-3: Facet joint osteoarthritis and hypertrophy. Mild degree of the bilateral neural foraminal stenosis. L3-4: Facet joint osteoarthritis and hypertrophy. Moderate degree of bilateral neural foraminal stenosis. Mild degree of central canal stenosis due to hypertrophy of the ligamenta flava. L4-5: 60% loss of height of the L4 vertebrae. Facet joint osteoarthritis and hypertrophy. Mild degree of bilateral neural foraminal stenosis. L5-S1: Mild degree of disc space narrowing. No significant stenosis seen. Atherosclerotic calcification of the abdominal aorta with minimally dilatation in its distal portion. CT/Spine Lumbar without Contrast IMPRESSION: Multilevel degenerative changes, as described above. Loss of height of L4 vertebrae. Electronically Signed: Ruben Hare MD at 11:47 EDT ,
--- NOTE | 2022-11-11 09:32 | CT_ITS ---
STUDY: CT THORACIC SPINE WITHOUT CONTRAST REASON FOR EXAM: Male, 87 years old. Back pain RADIATION DOSAGE (If Supplied By Facility): CTDIvol = ( 28.63 ) mGy, DLP = ( 1117.86 ) mGycm TECHNIQUE: The patient was scanned in a multi detector CT scanner. High resolution imaging was performed. Images were obtained from T1 to T12 vertebral level. Sagittal and coronal images were reconstructed. Individualized dose optimization techniques were used for this CT. COMPARISON: None. FINDINGS: There is multilevel endplate spondylosis of the cervical spine. There is an increased kyphosis of the thoracic spine. There is no substantial scoliosis. There is multilevel endplate spondylosis of the thoracic spine. Demineralization. Loss of height of a mid dorsal vertebrae. Normal disc spaces heights. Calcification of the thoracic aorta. Small bilateral pleural effusions. Infiltrate is seen in the right lower lobe. CT/Spine Thoracic without Contras IMPRESSION: Increased kyphosis with degenerative changes and loss of height of a mid dorsal vertebrae. Electronically Signed: Ruben Hare MD at 11:45 EDT ,
--- NOTE | 2022-11-11 09:32 | EKG12_ITS ---
Test Reason : SOB Blood Pressure : / mmHG Vent. Rate : 118 BPM Atrial Rate : 000 BPM P-R Int : 000 ms QRS Dur : 088 ms QT Int : 300 ms P-R-T Axes : 000 -11 055 degrees QTc Int : 420 ms Atrial fibrillation with rapid ventricular response Abnormal ECG Confirmed by KRYSTIN MIJARES, GARY ([id number]), sound editor JOANA LOVELACE ([id number]) on 11/13/2022 12:16:57 PM Referred By: Confirmed By:GARY MCCLELLAND MD
--- NOTE | 2022-11-11 09:32 | CT_ITS ---
STUDY: CT ABDOMEN AND PELVIS WITHOUT CONTRAST REASON FOR EXAM: Male, 87 years old. 2 week history back pain and weakness. History of colon CA and prostatic CA. RADIATION DOSAGE (If Supplied By Facility): CTDIvol = ( 22.02 ) mGy, DLP = ( 1226.98 ) mGycm TECHNIQUE: Transaxial images were obtained from the dome of the diaphragm to the symphysis pubis without oral contrast, and without intravenous contrast. Sagittal and coronal images were reconstructed. Individualized dose optimization techniques were used for this CT. COMPARISON: Comparison is made with prior study dated February 26, 2013. FINDINGS: There is a 12.1 cm x 6.4 cm mass in the left lower lobe. Smaller nodules are also seen at both lung bases more prominent on the left side. Small bilateral pleural effusion more prominent on the left side. Coronary artery calcification. Calcification of the mitral valve annulus. Normal liver. There are multiple small gallstones. Normal spleen. Normal pancreas. Normal bilateral adrenal glands. There is a 6 cm x 4.4 cm cyst in the lower pole of the right kidney. Normal left kidney. Normal visualized stomach. Normal small intestine. There are multiple colonic diverticula consistent with diverticulosis. Anastomosis seen in the descending colon. Focally distended colon at that site just proximal to the anastomosis. The appendix is visualized and appears normal. There is diffuse atherosclerotic calcification of the abdominal aorta and its major visceral branches. Minimally dilated distal abdominal aorta with a transverse dimension of 3.2 cm. Normal inferior vena cava. Normal retroperitoneum. Normal urinary bladder. There are prostatic calcifications. Normal abdominal wall. There are degenerative changes of the visualized lumbar spine. There is approximately 60% collapse of the L4 vertebrae. CT/Abdomen/Pelvis without Cont IMPRESSION: Large mass in the left lower lobe with the bibasilar pulmonary masses and small effusion. Multiple gallstones. Extensive atherosclerotic calcific plaques of the abdominal aorta and major visceral branches. Right renal cyst. Anastomosis is seen in the mid descending colon with focally dilated bowel at that site. Electronically Signed: uRben Hare MD at 11:43 EDT ,
--- NOTE | 2022-11-11 09:35 | RAD_ITS ---
STUDY: X-RAY CHEST REASON FOR EXAM: Male, 87 years old. Weakness TECHNIQUE: AP and lateral views of the chest. COMPARISON: Comparison is made with prior study October 17, 2022. FINDINGS: EKG electrodes are seen. Vascular congestion and mild CHF superimposed on scarring at the lung bases. Blunting of the right costophrenic angle. Sternal cerclage wires are present from a prior sternotomy. Normal mediastinum and megan. Normal visualized pulmonary arteries. There is atherosclerotic calcification of the aortic arch with tortuosity. There are diffuse degenerative changes of the visualized thoracic spine. Normal visualized ribs, clavicles, and shoulders. There is no demonstrated abnormality of the visualized soft tissue structures of the upper abdomen. RAD/Chest PA and Lateral IMPRESSION: Findings in keeping with a mild degree of CHF superimposed on basilar scarring worse on the right side. Electronically Signed: Ruben Hare MD at 11:14 EDT ,
[2022-11-11] MEDS: Metoprolol Tartrate 100 MG Tablet PO (09:46)
[2022-11-11 10:45] LABS: Absolute Lymphocyte Count 0.52 X10^3/uL (0.83-4.51); Absolute Neutrophil Count 7.8 X10^3/uL (2.0-7.7); Basophil# 0.05 X10^3/uL; Basophil% 0.5 % (0-1); Eosinophil# 0.06 X10^3/uL; Eosinophils% 0.6 % (0-5); Hematocrit 39.5 % (40-54); Hemoglobin 11.9 g/dL (13.0-16.5); Lymphocyte # 0.52 X10^3/ul (0.83-4.51); Lymphocyte % 5.6 % (19-41); Mean Corp Hgb Conc 30.1 g/dL (32-36); Mean Corpuscular Hgb 27.6 pg (27.0-32.0); Mean Corpuscular Volume 91.6 fL (80-94); Mean Platelet Vol. 11.6 fl (6.2-12.0); Monocyte# 0.72 X10^3/uL; Monocyte% 7.8 % (0-10); NRBC Flagged by Analyzer 0 % (0-5); Neutrophil # 7.84 X10^3/uL (2.7-7.7); Neutrophil % 84.9 % (47-70); POSITIVE DIFFERENTIAL YES; Platelet Count 178 K/mm3 (150-450); RBC Distribution Width CV 15.7 % (11.6-14.6); RBC Distribution Width SD 52.3 fl (35.1-43.9); Red Blood Count 4.31 M/mm3 (4.6-6.2); White Blood Count 9.3 K/mm3 (4.4-11.0)
[2022-11-11 10:48] LABS: Differential Indicated SCAN CRITERIA MET
[2022-11-11 10:56] LABS: ALB/GLOB Ratio 0.7 RATIO (0.9-2.4); AST(SGOT) 33 U/L (15-37); Alanine Aminotransfer ALT/SGPT 15 U/L (16-61); Albumin, Serum 2.9 g/dL (3.2-5.0); Alkaline Phosphatase 146 U/L (45-117); Anion Gap 2 (5-15); BUN 32 mg/dL (7-18); BUN/Creat Ratio 24.4 RATIO (10-20); Bilirubin, Direct 0.37 mg/dL (0.00-0.30); Calcium,Total 10.9 mg/dL (8.5-10.1); Chloride 104 mmol/L (98-107); Creatinine, Serum 1.31 mg/dL (0.70-1.30); EST Glomerular Filtration Rate 55 mL/min (>60); Est Glom Filt Rate - Afr Amer 67 mL/min (>60); Globulin 4.3 g/dL (2.2-4.2); Glucose 91 mg/dL (74-106); Lipase 77 U/L (13-75); Potassium 4.9 mmol/L (3.5-5.1); Protein, Total 7.2 g/dL (6.4-8.2); Sodium Level 138 mmol/L (136-145)
[2022-11-11 11:09] LABS: International Normalized Ratio 3.6; Prothrombin Time (Protime)PT. 36.3 SECONDS (11.7-14.9)
[2022-11-11 11:32] LABS: Differential Comment SCANNED
--- NOTE | 2022-11-11 12:18 | NURSING ---
MED SURG JOPPERI GAIT ABNORMALITY
[2022-11-11 12:30] LABS: Mucous, Urine 0 SEEN /hpf (<or=2+); White Blood Cells 0 SEEN /hpf (0-5)
[2022-11-11 12:33] LABS: Color, Urine Yellow (Yellow); Glucose, Dipstick Normal (Normal); Ketone-Dipstick Negative (Negative); Leukocyte Esterase-Dipstick Negative /ul (Negative); Nitrite-Dipstick Negative (Negative); Occult Blood-Urine 10 /ul (Negative); Protein-Dipstick 15 mg/dl (Negative); Urine Bilirubin Dipstick Negative (Negative); Urine Clarity Sl. Cloudy (Clear); Urine Urobilinogen 4 mg/dl (Normal)
[2022-11-11 12:42] LABS: Bacteria 1+ /hpf (None Seen); Red Blood Cells-Urine 0-5 SEEN /hpf (0-5); Squamous Epithelial Cells - UA 0-5 SEEN /hpf (0-5)
[2022-11-11 12:47] LABS: BNP,B-Type NATRIURETIC PEPTIDE 126.7 pg/mL (0-100)
[2022-11-11 13:17] LABS: Troponin-I HS 23 pg/mL (3.0-78.0)
--- NOTE | 2022-11-11 13:19 | PCM.HP.STD ---
[facility] - General General Date of Admission: 11/11/22 Date of Service: 11/11/22 Chief Complaint: weakness. shortness of breath. HPI Narrative JOSE CHAWLA, is a 87 M who presents with progressive weakness. Patient lives at home and cares for his debilitated . He helps her with all of her ADLs with the exception toileting. He has progressively gotten weaker. Patient helps cook her food and does other chores for her and brings her food. He is supposed to be on oxygen but when he does these activities, he takes his oxygen off and gets short of breath. When he is at rest, he has his oxygen on. Patient states that when he cooks the food there is an electrical range and not a gas range. He is a also when he brings her food and things he will use his walker but can only use one hand and use the other hand to hand her the objects that she needs. States that when he walks normally with a walker he can get around okay but slowly. He has not fallen. Patient does have chronic lower extremity edema more prominent right than his left is been no changes with that. He does not feel that he has gained any weight recently. The hospitalist service was contacted as the patient's stepson, does not feel that the patient can manage at home on his own and the patient feels that way as well. [facility] Medical History Abnormality of gait Acid reflux Allergic rhinitis Anemia Anemia requiring transfusions Atherosclerosis of coronary artery of [place] heart without angina pectoris Atrial fibrillation with rapid ventricular response Blood clots in stool Cancer Carotid artery disease Colon cancer COPD (chronic obstructive pulmonary disease) Essential hypertension Former smoker GERD (gastroesophageal reflux disease) GI bleed (04/25/21) Hyperbilirubinemia Hyperlipidemia Hypothyroidism (acquired) Iron deficiency anemia Nonrheumatic mitral (valve) insufficiency Nonsustained paroxysmal supraventricular tachycardia Obesity Paroxysmal atrial fibrillation Personal history of colonic polyps Prostatic hypertrophy Pulmonary embolism Respiratory failure Urinary retention Home Medications atorvastatin 80 mg tablet (Lipitor) 80 mg PO DAILY CHOLESTEROL 07/14/17 [History Last Taken 11/10/22] ascorbic acid (vitamin C) 500 mg tablet 1,000 mg PO BID SUPPLEMENT 02/15/20 [History Last Taken 11/10/22] levothyroxine 125 mcg tablet 125 mcg PO DAILY THYROID 04/25/21 [History Last Taken 11/10/22] furosemide 40 mg tablet 40 mg PO DAILY FLUID 10/01/22 [History Last Taken 11/10/22] metoprolol succinate 100 mg tablet,extended release 24 hr 100 mg PO DAILY BLOOD PRESSURE 10/01/22 [History Last Taken 11/10/22] omega-3 fatty acids 500 mg capsule 500 mg PO DAILY SUPPLEMENT 10/01/22 [History Last Taken 11/10/22] potassium chloride 20 mEq tablet,extended release 20 meq PO DAILY SUPPLEMENT 10/01/22 [History Last Taken 11/10/22] albuterol sulfate 90 mcg/actuation aerosol inhaler 1 puff inhalation Q6H PRN shortness of breath or wheezing #8.5 grams 10/03/22 [Rx Last Taken 11/10/22] warfarin 5 mg tablet (Jantoven) 5 mg PO SuMoWeThFrSa@1700 #30 tabs 10/03/22 [Rx Last Taken 11/10/22] warfarin 7.5 mg tablet (Jantoven) 7.5 mg PO Tu@1700 #0 tabs 10/03/22 [Rx Last Taken 11/10/22] metolazone 2.5 mg tablet See Rx Instructions PO Q OTHER DAY 10/18/22 [History Last Taken 11/10/22] Allergy/AdvReac Type Severity Reaction Status Date / Time adhesive tape Allergy Intermediate dermatitis Verified 11/11/22 08:47 Family History Father , of pneumonia Pneumonia Mother , of CAD CAD (coronary artery disease) Arthritis Sister , Cause unknown Rheumatoid arthritis Oral cancer Sister Arthritis Sister No problems noted. Sister No problems noted. Surgical History H/O coronary artery bypass surgery (12/25/18) History of bladder surgery History of cardioversion (05/31/19) History of colectomy History of colonoscopy (09/30/17) History of esophagogastroduodenoscopy (EGD) (~04/2021) History of mitral valve repair (12/25/18) History of transurethral resection of prostate Status post mitral valve repair (12/25/18) Social History household members: spouse Smoking Status: Former smoker quit date: 06/04/96 pack-years: 40 how long ago did patient quit smokin years ago alcohol intake: never substance use type: does not use caffeine: Yes Type: coffee Number of servings: 2 ROS ROS Narrative All review of systems were negative except as mentioned above in the history of present illness and the other review of systems. Vital Signs Vital Signs Vital Signs: 11/11/22 08:48 11/11/22 08:52 11/11/22 08:57 Temperature 36.5 C L Temperature Source Oral Pulse Rate 112 H 126 H Respiratory Rate 22 H 22 H Respiratory Effort Short of Breath Labored Respiratory Pattern Tachypnea Blood Pressure 117/95 H Blood Pressure Mean 102 Pulse Ox 93 93 Oxygen Delivery Method Nasal Cannula Nasal Cannula Oxygen Flow Rate (L/min) 3 3 11/11/22 10:42 11/11/22 11:15 11/11/22 12:25 Temperature 36.1 C L Temperature Source Temporal Pulse Rate 95 114 H Respiratory Rate 23 H 22 H Respiratory Effort Respiratory Pattern Blood Pressure 120/81 H 106/87 H Blood Pressure Mean 94 93 Pulse Ox 92 92 91 Oxygen Delivery Method Nasal Cannula Nasal Cannula Nasal Cannula Oxygen Flow Rate (L/min) 3 3 11/11/22 13:16 Temperature Temperature Source Pulse Rate 90 Respiratory Rate 24 H Respiratory Effort Respiratory Pattern Blood Pressure 116/90 H Blood Pressure Mean 98 Pulse Ox 94 Oxygen Delivery Method Oxygen Flow Rate (L/min) Weight Weight: 106.4 kg Body Mass Index (BMI) 31.8 Physical Exam Const alert and no apparent distress Constitutional Narrative: Slightly hard of hearing General Appearance: cooperative HEENT normocephalic and head/scalp atraumatic Eyes EOMs intact bilaterally Eyes Narrative: No icterus Neck no lymphadenopathy Neck Narrative: Positive JVD Resp Auscultation: crackles bilateral and localized (Bases) Cardio regular rate, regular rhythm, S1 normal heart sound and S2 normal heart sound GI normal to inspection, nondistended, normoactive bowel sounds, soft to palpation, non-tender and non-distended Extremity normal to inspection and no clubbing, cyanosis or edema Neuro oriented x3 and moves all extremities Sensorium / Orientation: awake and alert Speech: speech normal Psych affect normal Results Lab / Micro Data Attestation: I reviewed the patient's lab results. Lab results narrative: Chest x-ray reviewed and showed pulmonary vascular congestion. Result Diagrams: 11/11/22 10:30 11/11/22 10:30 Labs: Laboratory Results - last 24 hr 11/11/22 10:30: WBC 9.3, RBC 4.31 L, Hgb 11.9 L, Hct 39.5 L, MCV 91.6, MCH 27.6, MCHC 30.1 L, RDW Std Deviation 52.3 H, RDW Coeff of Marcelino 15.7 H, Plt Count 178, MPV 11.6, Immature Gran % (Auto) 0.600, Neut % (Auto) 84.9 H, Lymph % (Auto) 5.6 L, [place] % (Auto) 7.8, Eos % (Auto) 0.6, Baso % (Auto) 0.5, Absolute Neuts (auto) 7.8 H, Absolute Lymphs (auto) 0.52 L, Nucleated RBC % 0, Differential Comment SCANNED 11/11/22 10:30: Sodium 138, Potassium 4.9, Chloride 104, Carbon Dioxide 32.0, Anion Gap 2 L, BUN 32 H, Creatinine 1.31 H, Estim Creat Clear Calc 43.60, Est GFR (MDRD) Af Amer 67, Est GFR (MDRD) Non-Af 55 L, BUN/Creatinine Ratio 24.4 H, Glucose 91, Calcium 10.9 H, Total Bilirubin 1.20 H, Direct Bilirubin 0.37 H, AST 33, ALT 15 L, Alkaline Phosphatase 146 H, Total Protein 7.2, Albumin 2.9 L, Globulin 4.3 H, Albumin/Globulin Ratio 0.7 L, Lipase 77 H 11/11/22 10:30: PT 36.3 H, INR 3.6 11/11/22 10:30: Troponin I High Sens 23 11/11/22 10:30: B-Natriuretic Peptide 126.7 H 11/11/22 12:24: Urine Color Yellow, Urine Clarity Sl. Cloudy, Urine pH 5.0, Ur Specific [place] 1.020, Urine Protein 15 H, Urine Glucose (UA) Normal, Urine Ketones Negative, Urine Occult Blood 10 H, Urine Nitrite Negative, Urine Bilirubin Negative, Urine Urobilinogen 4 H, Ur Leukocyte Esterase Negative, Urine RBC 0-5 SEEN, Urine WBC 0 SEEN, Ur Squamous Epith Cells 0-5 SEEN, Urine Bacteria 1+, Urine Mucus 0 SEEN EKG Initial EKG: Attestation: I personally reviewed and interpreted this EKG as follows: Prior EKG tracings: available for review EKG Rhythm Intrepretation: Atrial Fibrillation (With RVR) Radiology Impression Abdomen/Pelvis CT 11/11/22 09:32 IMPRESSION: Large mass in the left lower lobe with the bibasilar pulmonary masses and small effusion. Multiple gallstones. Extensive atherosclerotic calcific plaques of the abdominal aorta and major visceral branches. Right renal cyst. Anastomosis is seen in the mid descending colon with focally dilated bowel at that site. Electronically Signed: Ruben Hare MD at 11:43 EDT , Lumbar Spine CT 11/11/22 09:32 IMPRESSION: Multilevel degenerative changes, as described above. Loss of height of L4 vertebrae. Electronically Signed: Ruben Hare MD at 11:47 EDT , Thoracic Spine CT 11/11/22 09:32 IMPRESSION: Increased kyphosis with degenerative changes and loss of height of a mid dorsal vertebrae. Electronically Signed: Ruben Hare MD at 11:45 EDT , Chest X-Ray 11/11/22 09:35 IMPRESSION: Findings in keeping with a mild degree of CHF superimposed on basilar scarring worse on the right side. Electronically Signed: Ruben Hare MD at 11:14 EDT , Assessment & Plan Assessment/Plan (1) Heart failure with preserved ejection fraction: PLAN: EF of 60% from 2D echocardiogram from February 10, 2020. Hold his furosemide and metolazone Continue with IV furosemide 40 mg twice daily Recheck 2D echocardiogram (2) Lung nodule: PLAN: Does have some mediastinal lymphadenopathy concerning for malignancy Dimensions have increased for the past month Patient had recently seen Dr. Manning on October 17 and was to have a PET scan, to which patient has not had done yet. Discussed with Dr. Manning who will see the patient in consultation (3) Debility: PLAN: Patient has progressively gotten weaker and is not able to help his as he was previously. PT OT evaluate and treat. Patient is open to going to a [place] [facility] [place] facility if he qualifies. (4) Caregiver burden: PLAN: Patient and his jennyon take care of his . The patient's is kim's mother. They are both overwhelmed by her care needs. Kim expresses that she does not want to go into a rest home. He said he was recently provided paperwork by her primary care provider. Advised him to bring that in and we have case management review that this provides some recommendations. I did tell them that since the patient is a priority we cannot manage her resources to provide some recommendations. (5) Chronic atrial fibrillation with RVR: PLAN: Acute exacerbation Improved with IV metoprolol Continue with metoprolol succinate Patient's INR is 3.6 PLAN: Plan Chronic conditions Hypothyroidism: Continue levothyroxine CAD: Status post CABG. Currently stable. Continue with atorvastatin. VTE prophylaxis: Not indicated since patient is already anticoagulated CODE STATUS: Addressed with the patient. Patient wishes to be DNR Comfort Care arrest no intubation. Charges/Coding Visit Charges Inpatient E&M: 97300 Init Hosp L3
--- NOTE | 2022-11-11 13:47 | ECHOCS_ITS ---
Reason For Study: CHF Procedure This was a 2D Doppler, Color Flow transthoracic echocardiogram. Very technically difficult due to patients body habitus and positioning. Patient was unable to lay in left lateral position due to extreme back pain. Contrast injection was performed. Exam performed portable in patient room. Left Ventricle Normal LV size. The estimated ejection fraction is 65 %. There is evidence of diastolic dysfunction. No regional wall motion abnormalities noted. Right Ventricle Normal RV size. Normal systolic function. Atria The left atrium is mildly enlarged. Normal right atrium. No doppler evidence for ASD. Mitral Valve There is no mitral valve stenosis. Trivial mitral valve insufficiency. Tricuspid Valve There is no tricuspid stenosis. Trivial tricuspid valve insufficiency. Pulmonary artery systolic pressure is 45 mmHg. Aortic Valve Trisinus/trileaflet aortic valve. There is no aortic stenosis. No aortic valve insufficiency. Pulmonic Valve There is no pulmonic valvular stenosis. No pulmonic valve insufficiency. Great Vessels Normal aortic root. Pericardium/Pleural No pericardial effusion. Medication Diluted definity 3ml given slow IV push to enhance endocardial definition. MMode/2D Measurements & Calculations LVIDd: 3.7 cm IVSd: 0.75 cm LAV(MOD-bp): 81.4 ml LVIDs: 2.8 cm LVPWd: 0.80 cm FS: 24.1 % LAV(MOD-bp) Indexed: 35.8 ml/m2 LAV(MOD-sp2): 70.4 ml LAV(MOD-sp4): 82.2 ml SV(MOD-sp4): 49.3 ml SV(sp4-el): 53.5 ml LVAd ap4: 29.8 cm2 LVLd ap4: 8.0 cm EDV(MOD-sp4): 90.3 ml EDV(sp4-el): 94.8 ml LVAs ap4: 18.8 cm2 LVLs ap4: 7.2 cm ESV(MOD-sp4): 41.0 ml ESV(sp4-el): 41.3 ml EF(MOD-sp4): 54.6 % EF(sp4-el): 56.4 % LA A4 area: 25.8 cm2 Time Measurements MV dec time: 0.25 sec Doppler Measurements & Calculations MV E max dom: 157.1 cm/sec Lat Peak E' Dmo: 7.0 cm/sec Med Peak E' Dom: 6.7 cm/sec MV A max dom: 39.9 cm/sec E/E' lat: 22.4 E/E' med: 23.4 MV E/A: 3.9 MV V2 max: 191.3 cm/sec MV P1/2t max dom: 193.3 cm/sec Ao V2 max: 99.4 cm/sec MV max P.6 mmHg MV P1/2t: 75.0 msec Ao max P.0 mmHg MV V2 mean: 90.7 cm/sec MV dec slope: 754.6 cm/sec2 MV mean P.4 mmHg MV V2 VTI: 36.5 cm MVA(P1/2t): 2.9 cm2 LV V1 max: 75.1 cm/sec MR max dom: 431.6 cm/sec PA V2 max: 95.4 cm/sec LV V1 max P.3 mmHg MR max P.5 mmHg PA V2 mean: 69.1 cm/sec TR max dom: 323.5 cm/sec TR max P.9 mmHg ECHO/Echo Complete W/ Contrast Interpretation Summary The estimated ejection fraction is 65 %. There is evidence of diastolic dysfunction. The left atrium is mildly enlarged. Trivial mitral valve insufficiency. Ordering Physician: Kevin Haryd Referring Physician: Kevin Boogie Performed By: Adam Landry RCS
[2022-11-11] MEDS: Furosemide 40 MG/4 ML Vial IV ×2 (15:16→17:42)
[2022-11-11] MEDS: Acetaminophen 325 MG Tablet 650 MG PO (20:10)
[2022-11-11] MEDS: Ascorbic Acid 500 MG Tablet 1000 MG PO (20:10)
[2022-11-12] VITALS (15 sets, daily range): BP systolic 92–135; BP diastolic 62–79; PULSE 76–132; RESP 18–20; TEMP 36.3–36.9; O2SAT 93–97
[2022-11-12] MEDS: Metoprolol Tartrate 5 MG/5 ML Vial IV ×2 (01:39→05:22)
[2022-11-12] MEDS: Levothyroxine 125 MCG Tablet PO (05:22)
[2022-11-12 06:30] LABS: Absolute Lymphocyte Count 0.43 X10^3/uL (0.83-4.51); Absolute Neutrophil Count 8.2 X10^3/uL (2.0-7.7); Basophil# 0.06 X10^3/uL; Basophil% 0.6 % (0-1); Eosinophil# 0.08 X10^3/uL; Eosinophils% 0.8 % (0-5); Hemoglobin 12.3 g/dL (13.0-16.5); Lymphocyte # 0.43 X10^3/ul (0.83-4.51); Lymphocyte % 4.5 % (19-41); Mean Corpuscular Hgb 27.6 pg (27.0-32.0); Mean Corpuscular Volume 92.1 fL (80-94); Mean Platelet Vol. 12.1 fl (6.2-12.0); Monocyte# 0.85 X10^3/uL; Monocyte% 8.8 % (0-10); NRBC Flagged by Analyzer 0 % (0-5); Neutrophil # 8.15 X10^3/uL (2.7-7.7); Neutrophil % 84.6 % (47-70); POSITIVE DIFFERENTIAL YES; Platelet Count 187 K/mm3 (150-450); RBC Distribution Width CV 15.6 % (11.6-14.6); RBC Distribution Width SD 53.1 fl (35.1-43.9); Red Blood Count 4.45 M/mm3 (4.6-6.2); White Blood Count 9.6 K/mm3 (4.4-11.0)
[2022-11-12 06:34] LABS: Differential Indicated SCAN CRITERIA MET
[2022-11-12 06:44] LABS: International Normalized Ratio 3.6; Prothrombin Time (Protime)PT. 36.7 SECONDS (11.7-14.9)
[2022-11-12 06:57] LABS: Anion Gap 5 (5-15); BUN 35 mg/dL (7-18); BUN/Creat Ratio 27.1 RATIO (10-20); Calcium,Total 11.1 mg/dL (8.5-10.1); Chloride 102 mmol/L (98-107); Creatinine, Serum 1.29 mg/dL (0.70-1.30); EST Glomerular Filtration Rate 56 mL/min (>60); Est Glom Filt Rate - Afr Amer 68 mL/min (>60); Estimated Creatinine Clearance 44.28 ml/min; Glucose 93 mg/dL (74-106); Potassium 4.9 mmol/L (3.5-5.1); Sodium Level 138 mmol/L (136-145)
[2022-11-12 06:58] LABS: Anisocytosis 1+
--- NOTE | 2022-11-12 08:27 | PN.HOSP_ITS ---
Reason for Visit Reason for Visit: Diagnoses Chronic atrial fibrillation, unspecified (11/11/22) Unspecified diastolic (congestive) heart failure (11/11/22) Other malaise (11/11/22) Solitary pulmonary nodule (11/11/22) Dependent relative needing care at home (11/11/22) Subjective Subjective Increased oxygen requirements. Has been having back pain for the past 3 months. Objective Data Objective Data Vital Signs: Vital Signs Temp Pulse Resp BP Pulse Ox O2 Del Method O2 Flow Rate 36.8 C 105 H 18 113/70 95 High Flow 7 11/12/22 05:33 11/12/22 05:33 11/12/22 05:33 11/12/22 05:33 11/12/22 05:33 11/12/22 06:55 11/12/22 06:55 Oxygen Flow Rate (L/min) 7 Oxygen Delivery Method High Flow Weight: 102.1 kg Body Mass Index (BMI) 30.5 Intake & Output: Intake and Output for Last 24 Hours 11/10/22 11/11/22 11/12/22 23:59 23:59 23:59 Intake Total 300 / 300 Output Total 750 / 750 350 / 350 Balance -450 / -450 -350 / -350 Lab / Micro Data Result Diagrams: 11/12/22 05:53 11/12/22 05:53 Labs: Laboratory Results - last 24 hr 11/11/22 10:30: WBC 9.3, RBC 4.31 L, Hgb 11.9 L, Hct 39.5 L, MCV 91.6, MCH 27.6, MCHC 30.1 L, RDW Std Deviation 52.3 H, RDW Coeff of Marcelino 15.7 H, Plt Count 178, MPV 11.6, Immature Gran % (Auto) 0.600, Neut % (Auto) 84.9 H, Lymph % (Auto) 5.6 L, [place] % (Auto) 7.8, Eos % (Auto) 0.6, Baso % (Auto) 0.5, Absolute Neuts (auto) 7.8 H, Absolute Lymphs (auto) 0.52 L, Nucleated RBC % 0, Differential Comment SCANNED 11/11/22 10:30: Sodium 138, Potassium 4.9, Chloride 104, Carbon Dioxide 32.0, Anion Gap 2 L, BUN 32 H, Creatinine 1.31 H, Estim Creat Clear Calc 43.60, Est GF R (MDRD) Af Amer 67, Est GFR (MDRD) Non-Af 55 L, BUN/Creatinine Ratio 24.4 H, Glucose 91, Calcium 10.9 H, Total Bilirubin 1.20 H, Direct Bilirubin 0.37 H, AST 33, ALT 15 L, Alkaline Phosphatase 146 H, Total Protein 7.2, Albumin 2.9 L, Globulin 4.3 H, Albumin/Globulin Ratio 0.7 L, Lipase 77 H 11/11/22 10:30: PT 36.3 H, INR 3.6 11/11/22 10:30: Troponin I High Sens 23 11/11/22 10:30: B-Natriuretic Peptide 126.7 H 11/11/22 12:24: Urine Color Yellow, Urine Clarity Sl. Cloudy, Urine pH 5.0, Ur Specific [place] 1.020, Urine Protein 15 H, Urine Glucose (UA) Normal, Urine Ketones Negative, Urine Occult Blood 10 H, Urine Nitrite Negative, Urine Bilirubin Negative, Urine Urobilinogen 4 H, Ur Leukocyte Esterase Negative, Urine RBC 0-5 SEEN, Urine WBC 0 SEEN, Ur Squamous Epith Cells 0-5 SEEN, Urine Bacteria 1+, Urine Mucus 0 SEEN 11/12/22 05:53: WBC 9.6, RBC 4.45 L, Hgb 12.3 L, Hct 41.0, MCV 92.1, MCH 27.6, MCHC 30.0 L, RDW Std Deviation 53.1 H, RDW Coeff of Marcelino 15.6 H, Plt Count 187, MPV 12.1 H, Immature Gran % (Auto) 0.700, Neut % (Auto) 84.6 H, Lymph % (Auto) 4.5 L, [place] % (Auto) 8.8, Eos % (Auto) 0.8, Baso % (Auto) 0.6, Absolute Neuts (auto) 8.2 H, Absolute Lymphs (auto) 0.43 L, Nucleated RBC % 0, Anisocytosis 1+ 11/12/22 05:53: PT 36.7 H, INR 3.6 11/12/22 05:53: Sodium 138, Potassium 4.9, Chloride 102, Carbon Dioxide 31.0, Anion Gap 5, BUN 35 H, Creatinine 1.29, Estim Creat Clear Calc 44.28, Est GFR (MDRD) Af Amer 68, Est GFR (MDRD) Non-Af 56 L, BUN/Creatinine Ratio 27.1 H, Glucose 93, Calcium 11.1 H Radiography Diagnostic Testing: Radiology Impression Abdomen/Pelvis CT 11/11/22 09:32 IMPRESSION: Large mass in the left lower lobe with the bibasilar pulmonary masses and small effusion. Multiple gallstones. Extensive atherosclerotic calcific plaques of the abdominal aorta and major visceral branches. Right renal cyst. Anastomosis is seen in the mid descending colon with focally dilated bowel at that site. Electronically Signed: Ruben Hare MD at 11:43 EDT , Lumbar Spine CT 11/11/22 09:32 IMPRESSION: Multilevel degenerative changes, as described above. Loss of height of L4 vertebrae. Electronically Signed: Ruben Hare MD at 11:47 EDT , Thoracic Spine CT 11/11/22 09:32 IMPRESSION: Increased kyphosis with degenerative changes and loss of height of a mid dorsal vertebrae. Electronically Signed: Ruben Hare MD at 11:45 EDT , Chest X-Ray 11/11/22 09:35 IMPRESSION: Findings in keeping with a mild degree of CHF superimposed on basilar scarring worse on the right side. Electronically Signed: Ruben Hare MD at 11:14 EDT , Physical Exam Const alert and no apparent distress HEENT head/scalp atraumatic and moist oral mucous membranes Resp Resp Narrative: Coarse breath sounds bilaterally Cardio regular rate, regular rhythm, S1 normal heart sound and S2 normal heart sound GI normal to inspection, nondistended, normoactive bowel sounds, soft to palpation, non-tender and non-distended Extremity normal to inspection and full ROM Psych affect normal Assessment & Plan Assessment/Plan (1) Heart failure with preserved ejection fraction: PLAN: EF of 60% from 2D echocardiogram from February 10, 2020. Hold his furosemide and metolazone Continue with IV furosemide 40 mg twice daily Recheck 2D echocardiogram (2) Lung nodule: PLAN: Does have some mediastinal lymphadenopathy concerning for malignancy Dimensions have increased for the past month Patient had recently seen Dr. Manning on October 17 and was to have a PET scan, to which patient has not had done yet. Informed the patient I was can have Dr. Manning see him as his respiratory status was getting worse and this mass peer to be getting larger. He stated that he did not want Dr. Manning to say him because he did not like his interaction with him when he saw me in the office. Additionally, patient would not want addit ional work-up even if this is cancer. We will discontinue the pulmonary consult. (3) Debility: PLAN: Patient has progressively gotten weaker and is not able to help his as he was previously. PT OT evaluate and treat. Patient is open to going to a alf facility if he qualifies. (4) Caregiver burden: PLAN: Patient and his jennyon take care of his . The patient's is annika's mother. They are both overwhelmed by her care needs. Annika expresses that she does not want to go into a rest home. He said he was recently provided paperwork by her primary care provider. Advised him to bring that in and we have case man agement review that this provides some recommendations. I did tell them that since the patient is a priority we cannot manage her resources to provide some recommendations. (5) Chronic atrial fibrillation with RVR: PLAN: Acute exacerbation Improved with IV metoprolol Continue with metoprolol succinate Patient's INR is 3.6 (6) Back pain: PLAN: Chronic L4 loss of height. Pain control check 25 oh D level PLAN: Plan Chronic conditions * Hypothyroidism: Continue levothyroxine * CAD: Status post CABG. Currently stable. Continue with atorvastatin. VTE prophylaxis: Not indicated since patient is already anticoagulated CODE STATUS: Addressed with the patient. Patient wishes to be DNR Comfort Care arrest no intubation. Patient with a myriad of symptoms, debility. She recommended palliative care consult. Told them that they may not see him till he is outpatient. But he is agreeable. Greater than 50 minutes of which greater than 50% time was counseling the patient about his symptoms, treatment, the reason for consultation to pulmonary, acknowledging his reluctance to see Dr. Manning. Charges/Coding Visit Charges Inpatient E&M: 33541 Subs Hosp L3
[2022-11-12] MEDS: Potassium Chloride Oral Tablet 20 MEQ PO (09:35)
[2022-11-12] MEDS: Ascorbic Acid 500 MG Tablet 1000 MG PO ×2 (09:37→20:59)
[2022-11-12] MEDS: Metoprolol(XL)Succ 100 MG Tablet PO (09:37)
[2022-11-12] MEDS: Atorvastatin Calcium 80 MG Tablet PO (09:38)
[2022-11-12] MEDS: Furosemide 40 MG/4 ML Vial IV ×2 (09:40→16:56)
--- NOTE | 2022-11-12 12:05 | CASEMGMT ---
RN KIMBERLY Face to Face with patient for initial transition planning/care coordination assessment. RN CM introduced self and role at [facility]. Patient lying in bed, alert and oriented, son at bedside. Patient willing to participate in assessment and is able to answer all questions appropriately. Care providers, pharmacy, and demographics verified. Patient wishes to discharge to SNF at discharge. Son has concerns for mother at home as she needs placement as well, SW updated. Patient states he has no further needs or concerns at this time. CM to follow for discharge planning needs that may arise. PCP: Keagan Specialists: Kiki chlorine cell tender Preferred [facility]acy: [facility] Insurance: Sharla PRESTON Prescription Benefit: yes Living Will/HPOA: Patient thinks he has them on file and is either his or stepson LNOK: , step son Living Arrangements: Patient lives with in a single story home with 2 steps to enter the home. Patient was independent at home but is requiring assistance. Transportation: son DME/HHC: Patient has shower chair, raised toilet, cane, walker, grab bars, wheelchair, pulse ox, and home oxygen through [employer] at 3.5 lpm with portability. No previous HHC Or SNF Disposition Plan: Patient to discharge to SNF pending acceptance. Denise PRINCE, RN, CM
--- NOTE | 2022-11-12 12:25 | CASEMGMT ---
SW met with patient and his son Prem per their request. SW introduced self and role at [facility]. Patient will need placement at discharge. SW provided patient and his son with a list of long-term facility providers including quality and resource use data and consistent with patient?s preferred geographic region, medical needs, and insurance network were provided from the [employer] Guide. SW asked that they pick at least 3 places they would be okay with and SW will make referrals. Prem stated that patient's will need to go to the assisted as well. SW explained that patient's would have to private pay at the assisted since she does not have a qualifying stay at the hospital. They will review the list and get back to SW. Meghna Fairbanks PHARMACY CLERK ANTONIA
--- NOTE | 2022-11-12 12:27 | CASEMGMT ---
Discharge Planning SNF list created and given to SW. Eliana Dye, Discharge Planning Asst.
--- NOTE | 2022-11-12 13:36 | CASEMGMT ---
Per RN CM patient and his son chose [facility]. They did not have any other choices at this time. CARLO asked jerry Monroy/c financial planning assistant to please make a referral. Meghna Fairbanks FURNITURE SERVICER ANTONIA
--- NOTE | 2022-11-12 13:36 | CASEMGMT ---
Discharge Planning Referral sent to [facility] via [facility]. Eliana Dye, Discharge Planning Asst.
[2022-11-12] MEDS: Acetaminophen 325 MG Tablet 650 MG PO (20:59)
[2022-11-12] MEDS: 0.9% Saline Lock 10 ML Syringe IV (20:59)
[2022-11-12] MEDS: MELATONIN 3 MG TABLET PO (23:10)
[2022-11-13] VITALS (21 sets, daily range): BP systolic 106–122; BP diastolic 65–90; PULSE 100–152; RESP 14–26; TEMP 36.2–36.8; O2SAT 91–98
[2022-11-13] MEDS: Metoprolol Tartrate 25 MG Tablet PO (01:21)
[2022-11-13] MEDS: traMADol 50 MG Tablet PO (02:38)
--- NOTE | 2022-11-13 03:45 | NURSING ---
Pt increase respiratory distress, went from 7L at shift change to 12L, then 15L at 89%, Dr. Lala came to room to assess pt, pt was air hunger, accessory muscle use with labored breathing. Plan to place pt on bipap, duonebs, venous blood gas. Pt was given 1mg of Ativan for restlessness pulling of bipap, pulling at IVs and being aggressive with staff.
[2022-11-13 04:07] LABS: Blood Gas Specimen Type VEN; O2 Delivery Device BiPAP; VBG BASE EXCESS 8 mmol/L (-1.0-3.5); VBG Bicarbonate 33 mmol/L (22-26); VBG PO2 71 mmHg (25-40); VBG SO2 94 % (50-70); VBG TCO2 34 mmol/L (23-33); VBG pCO2 50.2 mmHg (41-51); VBG pH 7.42 (7.32-7.42)
[2022-11-13] MEDS: Ipratropium/Albuterol Sulfate 3 ML AMPUL.NEB INHALATION (04:11)
--- NOTE | 2022-11-13 04:17 | CPS ---
rt called to 127 due to sob. Patient placed on bipap 05/[address] arndt. Vbg obtained and results notified to dr. arndt via nursing.
--- NOTE | 2022-11-13 04:22 | CPS ---
patient on nursing cont. monitoring for sp02.
[2022-11-13] MEDS: LORazepam 2 MG/ML Syringe 1 MG IV (04:38)
[2022-11-13 05:47] LABS: Absolute Lymphocyte Count 0.33 X10^3/uL (0.83-4.51); Absolute Neutrophil Count 8.6 X10^3/uL (2.0-7.7); Basophil# 0.02 X10^3/uL; Basophil% 0.2 % (0-1); Eosinophil# 0.01 X10^3/uL; Eosinophils% 0.1 % (0-5); Hematocrit 37.7 % (40-54); Hemoglobin 11.6 g/dL (13.0-16.5); Lymphocyte # 0.33 X10^3/ul (0.83-4.51); Lymphocyte % 3.4 % (19-41); Mean Corp Hgb Conc 30.8 g/dL (32-36); Mean Corpuscular Hgb 27.9 pg (27.0-32.0); Mean Corpuscular Volume 90.6 fL (80-94); Mean Platelet Vol. 11.8 fl (6.2-12.0); Monocyte# 0.67 X10^3/uL; Monocyte% 6.9 % (0-10); NRBC Flagged by Analyzer 0 % (0-5); Neutrophil # 8.63 X10^3/uL (2.7-7.7); Neutrophil % 88.9 % (47-70); POSITIVE DIFFERENTIAL YES; Platelet Count 160 K/mm3 (150-450); RBC Distribution Width CV 15.6 % (11.6-14.6); Red Blood Count 4.16 M/mm3 (4.6-6.2); White Blood Count 9.7 K/mm3 (4.4-11.0)
[2022-11-13 05:50] LABS: Differential Indicated SCAN CRITERIA MET
[2022-11-13 05:55] LABS: International Normalized Ratio 2.3; Prothrombin Time (Protime)PT. 25.2 SECONDS (11.7-14.9)
[2022-11-13 06:35] LABS: Anion Gap 4 (5-15); BUN 44 mg/dL (7-18); Calcium,Total 10.6 mg/dL (8.5-10.1); Chloride 104 mmol/L (98-107); Creatinine, Serum 1.42 mg/dL (0.70-1.30); EST Glomerular Filtration Rate 50 mL/min (>60); Est Glom Filt Rate - Afr Amer 61 mL/min (>60); Estimated Creatinine Clearance 40.23 ml/min; Glucose 120 mg/dL (74-106); Potassium 4.2 mmol/L (3.5-5.1); Sodium Level 138 mmol/L (136-145)
[2022-11-13 06:37] LABS: Anisocytosis 1+
--- NOTE | 2022-11-13 06:49 | NURSING ---
This RN called son this AM to give update about pt, son appreciative and wishes to be the first one called if anything changes.
--- NOTE | 2022-11-13 07:24 | HP.PCM.HOS_ITS ---
HPI - General General Date of Admission: 11/11/22 Chief Complaint: weakness. shortness of breath. HPI Narrative JOSE CHAWLA, is a 87 M who presents [facility] Medical History Abnormality of gait Acid reflux Allergic rhinitis Anemia Anemia requiring transfusions Atherosclerosis of coronary artery of [place] heart without angina pectoris Atrial fibrillation with rapid ventricular response Blood clots in stool Cancer Carotid artery disease Colon cancer COPD (chronic obstructive pulmonary disease) Essential hypertension Former smoker GERD (gastroesophageal reflux disease) GI bleed (04/25/21) Hyperbilirubinemia Hyperlipidemia Hypothyroidism (acquired) Iron deficiency anemia Nonrheumatic mitral (valve) insufficiency Nonsustained paroxysmal supraventricular tachycardia Obesity Paroxysmal atrial fibrillation Personal history of colonic polyps Prostatic hypertrophy Pulmonary embolism Respiratory failure Urinary retention Home Medications atorvastatin 80 mg tablet (Lipitor) 80 mg PO DAILY CHOLESTEROL 07/14/17 [History Last Taken 11/10/22] ascorbic acid (vitamin C) 500 mg tablet 1,000 mg PO BID SUPPLEMENT 02/15/20 [History Last Taken 11/10/22] levothyroxine 125 mcg tablet 125 mcg PO DAILY THYROID 04/25/21 [History Last Taken 11/10/22] furosemide 40 mg tablet 40 mg PO DAILY FLUID 10/01/22 [History Last Taken 11/10/22] metoprolol succinate 100 mg tablet,extended release 24 hr 100 mg PO DAILY BLOOD PRESSURE 10/01/22 [History Last Taken 11/10/22] omega-3 fatty acids 500 mg capsule 500 mg PO DAILY SUPPLEMENT 10/01/22 [History Last Taken 11/10/22] potassium chloride 20 mEq tablet,extended release 20 meq PO DAILY SUPPLEMENT 10/01/22 [History Last Taken 11/10/22] albuterol sulfate 90 mcg/actuation aerosol inhaler 1 puff inhalation Q6H PRN shortness of breath or wheezing #8.5 grams 10/03/22 [Rx Last Taken 11/10/22] warfarin 5 mg tablet (Jantoven) 5 mg PO SuMoWeThFrSa@1700 #30 tabs 10/03/22 [Rx Last Taken 11/10/22] warfarin 7.5 mg tablet (Jantoven) 7.5 mg PO Tu@1700 #0 tabs 10/03/22 [Rx Last Taken 11/10/22] metolazone 2.5 mg tablet See Rx Instructions PO Q OTHER DAY 10/18/22 [History Last Taken 11/10/22] Allergy/AdvReac Type Severity Reaction Status Date / Time adhesive tape Allergy Intermediate dermatitis Verified 11/11/22 08:47 Family History Father , of pneumonia Pneumonia Mother , of CAD CAD (coronary artery disease) Arthritis Sister , Cause unknown Rheumatoid arthritis Oral cancer Sister Arthritis Sister No problems noted. Sister No problems noted. Surgical History H/O coronary artery bypass surgery (12/25/18) History of bladder surgery History of cardioversion (05/31/19) History of colectomy History of colonoscopy (09/30/17) History of esophagogastroduodenoscopy (EGD) (~04/2021) History of mitral valve repair (12/25/18) History of transurethral resection of prostate Status post mitral valve repair (12/25/18) Social History household members: spouse Smoking Status: Former smoker quit date: 06/04/96 pack-years: 40 how long ago did patient quit smokin years ago alcohol intake: never substance use type: does not use caffeine: Yes Type: coffee Number of servings: 2 ROS ROS Narrative All review of systems were negative except as mentioned above in the history of present illness and the other review of systems. Vital Signs Vital Signs Vital Signs: 11/12/22 09:37 11/12/22 10:00 11/12/22 10:00 Temperature Temperature Source Pulse Rate 117 H Pulse Strength Weak (1+) Respiratory Rate Respiratory Effort Respiratory Depth Respiratory Pattern Blood Pressure 135/79 H Blood Pressure [BP] Blood Pressure Mean Blood Pressure Mean [BP] Blood Pressure Source Blood Pressure Source [BP] Blood Pressure Position Blood Pressure Position [BP] Blood Pressure Location Blood Pressure Location [BP] Pulse Ox Oxygen Delivery Method Room Air Oxygen Flow Rate (L/min) Fraction of Inspired Oxygen (FIO2) 11/12/22 11:30 11/12/22 12:00 11/12/22 15:00 Temperature 97.4 F L 97.4 F L 97.5 F L Temperature Source Oral Oral Oral Pulse Rate 117 H 117 H 76 Pulse Strength Respiratory Rate 20 H 20 H 20 H Respiratory Effort Respiratory Depth Respiratory Pattern Blood Pressure 135/79 H Blood Pressure [BP] 92/69 Blood Pressure Mean 97 Blood Pressure Mean [BP] 76 Blood Pressure Source Blood Pressure Source [BP] Monitor Blood Pressure Position Blood Pressure Position [BP] Semi-Fowlers Blood Pressure Location Blood Pressure Location [BP] Left Arm Pulse Ox 93 93 93 Oxygen Delivery Method Nasal Cannula Room Air Oxygen Flow Rate (L/min) 7 Fraction of Inspired Oxygen (FIO2) 11/12/22 16:18 11/12/22 16:17 11/12/22 14:49 Temperature 97.5 F L Temperature Source Oral Pulse Rate 107 H Pulse Strength Respiratory Rate 20 H Respiratory Effort Respiratory Depth Respiratory Pattern Blood Pressure 107/62 Blood Pressure [BP] Blood Pressure Mean 77 Blood Pressure Mean [BP] Blood Pressure Source Blood Pressure Source [BP] Blood Pressure Position Blood Pressure Position [BP] Blood Pressure Location Blood Pressure Location [BP] Pulse Ox 93 93 93 Oxygen Delivery Method Nasal Cannula Oxygen Flow Rate (L/min) 6 6 Fraction of Inspired Oxygen (FIO2) 11/12/22 20:08 11/12/22 20:10 11/12/22 20:57 Temperature 98.4 F Temperature Source Oral Pulse Rate 110 H Pulse Strength Weak (1+) Respiratory Rate 18 Respiratory Effort Non-Labored Short of Breath Respiratory Depth Normal Respiratory Pattern Normal Blood Pressure 130/74 H Blood Pressure [BP] Blood Pressure Mean 92 Blood Pressure Mean [BP] Blood Pressure Source Monitor Blood Pressure Source [BP] Blood Pressure Position Supine Blood Pressure Position [BP] Blood Pressure Location Left Arm Blood Pressure Location [BP] Pulse Ox 94 Oxygen Delivery Method Room Air High Flow Oxygen Flow Rate (L/min) 7 Fraction of Inspired Oxygen (FIO2) 11/13/22 01:21 11/13/22 03:19 11/13/22 03:45 Temperature 98.3 F Temperature Source Temporal Pulse Rate 139 H 108 H Pulse Strength Respiratory Rate 26 H 23 H Respiratory Effort Respiratory Depth Respiratory Pattern Blood Pressure 112/65 Blood Pressure [BP] Blood Pressure Mean 80 Blood Pressure Mean [BP] Blood Pressure Source Monitor Blood Pressure Source [BP] Blood Pressure Position Semi-Fowlers Blood Pressure Position [BP] Blood Pressure Location Left Arm Blood Pressure Location [BP] Pulse Ox 91 95 Oxygen Delivery Method High Flow Bi-pap Oxygen Flow Rate (L/min) 15 Fraction of Inspired Oxygen (FIO2) 60 11/13/22 04:16 11/13/22 04:16 11/13/22 04:16 Temperature Temperature Source Pulse Rate 106 H 109 H Pulse Strength Respiratory Rate 23 H 26 H Respiratory Effort Respiratory Depth Respiratory Pattern Tachypnea Tachypnea Blood Pressure Blood Pressure [BP] Blood Pressure Mean Blood Pressure Mean [BP] Blood Pressure Source Blood Pressure Source [BP] Blood Pressure Position Blood Pressure Position [BP] Blood Pressure Location Blood Pressure Location [BP] Pulse Ox 95 95 Oxygen Delivery Method Bi-pap Oxygen Flow Rate (L/min) Fraction of Inspired Oxygen (FIO2) 60 60 11/13/22 00:15 11/13/22 05:00 11/13/22 06:00 Temperature 98.0 F 98.0 F Temperature Source Oral Axillary Pulse Rate 113 H 110 H Pulse Strength Respiratory Rate 21 H 19 H 19 H Respiratory Effort Respiratory Depth Respiratory Pattern Blood Pressure 122/74 H 122/74 H Blood Pressure [BP] Blood Pressure Mean 90 90 Blood Pressure Mean [BP] Blood Pressure Source Monitor Blood Pressure Source [BP] Blood Pressure Position Semi-Fowlers Blood Pressure Position [BP] Blood Pressure Location Right Forearm Blood Pressure Location [BP] Pulse Ox 92 98 98 Oxygen Delivery Method High Flow Bi-pap Bi-pap Oxygen Flow Rate (L/min) 12 Fraction of Inspired Oxygen (FIO2) 60 60 11/13/22 00:00 11/13/22 05:00 Temperature Temperature Source Pulse Rate Pulse Strength Respiratory Rate Respiratory Effort Short of Breath Labored Accessory Muscle Use Non-Labored Respiratory Depth Shallow Shallow Respiratory Pattern Tachypnea Tachypnea Blood Pressure Blood Pressure [BP] Blood Pressure Mean Blood Pressure Mean [BP] Blood Pressure Source Blood Pressure Source [BP] Blood Pressure Position Blood Pressure Position [BP] Blood Pressure Location Blood Pressure Location [BP] Pulse Ox Oxygen Delivery Method High Flow Bi-pap Oxygen Flow Rate (L/min) 15 Fraction of Inspired Oxygen (FIO2) 60 Weight Weight: 225 lb 1.471 oz Body Mass Index (BMI) 30.5 Physical Exam Const alert and no apparent distress Constitutional Narrative: Slightly hard of hearing General Appearance: cooperative HEENT normocephalic, head/scalp atraumatic and moist oral mucous membranes Eyes EOMs intact bilaterally Eyes Narrative: No icterus Neck no lymphadenopathy Neck Narrative: Positive JVD Resp Resp Narrative: Coarse breath sounds bilaterally Auscultation: crackles bilateral and localized (Bases) Cardio regular rate, regular rhythm, S1 normal heart sound and S2 normal heart sound GI normal to inspection, nondistended, normoactive bowel sounds, soft to palpation, non-tender and non-distended Extremity normal to inspection, full ROM and no clubbing, cyanosis or edema Neuro oriented x3 and moves all extremities Sensorium / Orientation: awake and alert Speech: speech normal Psych affect normal Results Lab / Micro Data Result Diagrams: 11/13/22 05:30 11/13/22 05:30 Labs: Laboratory Results - last 24 hr 11/13/22 05:30: PT 25.2 H, INR 2.3 11/13/22 05:30: WBC 9.7, RBC 4.16 L, Hgb 11.6 L, Hct 37.7 L, MCV 90.6, MCH 27.9, MCHC 30.8 L, RDW Std Deviation 51.0 H, RDW Coeff of Marcelino 15.6 H, Plt Count 160, MPV 11.8, Immature Gran % (Auto) 0.500, Neut % (Auto) 88.9 H, Lymph % (Auto) 3.4 L, [place] % (Auto) 6.9, Eos % (Auto) 0.1, Baso % (Auto) 0.2, Absolute Neuts (auto) 8.6 H, Absolute Lymphs (auto) 0.33 L, Nucleated RBC % 0, Anisocytosis 1+ 11/13/22 05:30: Sodium 138, Potassium 4.2, Chloride 104, Carbon Dioxide 30.0, Anion Gap 4 L, BUN 44 H, Creatinine 1.42 H, Estim Creat Clear Calc 40.23, Est GFR (MDRD) Af Amer 61, Est GFR (MDRD) Non-Af 50 L, BUN/Creatinine Ratio 31.0 H, Glucose 120 H, Calcium 10.6 H ABG Data ABG results: ABG 11/13/22 04:02 Specimen Type STEFAN VBG pH 7.42 VBG pO2 71 H VBG HCO3 33 H VBG Total CO2 34 H VBG O2 Sat (Calc) 94 H VBG Base Excess 8 H POC Mix VBG pCO2 Pt Tmp 50.2 O2 Delivery Device BiPAP Radiology Impression Echocardiogram 11/11/22 13:47 Interpretation Summary The estimated ejection fraction is 65 %. There is evidence of diastolic dysfunction. The left atrium is mildly enlarged. Trivial mitral valve insufficiency. Ordering Physician: Kevin Hardy Referring Physician: Kevin Boogie Performed By: Adam Landry RCS Assessment & Plan Assessment/Plan (1) Heart failure with preserved ejection fraction: PLAN: EF of 60% from 2D echocardiogram from February 10, 2020. Hold his furosemide and metolazone Continue with IV furosemide 40 mg twice daily Recheck 2D echocardiogram (2) Lung nodule: PLAN: Does have some mediastinal lymphadenopathy concerning for malignancy Dimensions have increased for the past month Patient had recently seen Dr. Manning on October 17 and was to have a PET scan, to the [facility] patient has not had done yet. Informed the patient I was can have Dr. Manning see him as his respiratory status was getting worse and this mass peer to be getting larger. He stated that he did not want Dr. Manning to say him because he did not like his interaction with him when he saw me in the office. Additionally, patient would not want additional work-up even if this is cancer. We will discontinue the pulmonary consult. (3) Debility: PLAN: Patient has progressively gotten weaker and is not able to help his as he was previously. PT OT evaluate and treat. Patient is open to going to a residential facility if he qualifies. (4) Caregiver burden: PLAN: Patient and his jennyon take care of his . The patient's is kim's mother. They are both overwhelmed by her care needs. Kim expresses that she does not want to go into a rest home. He said he was recently provided paperwork by her primary care provider. Advised him to bring that in and we have case management review that this provides some recommendations. I did tell them that since the patient is a priority we cannot manage her resources to provide some recommendations. (5) Chronic atrial fibrillation with RVR: PLAN: Acute exacerbation Improved with IV metoprolol Continue with metoprolol succinate Patient's INR is 3.6 (6) Back pain: PLAN: Chronic L4 loss of height. Pain control check 25 oh D level PLAN: Plan Chronic conditions * Hypothyroidism: Continue levothyroxine * CAD: Status post CABG. Currently stable. Continue with atorvastatin. VTE prophylaxis: Not indicated since patient is already anticoagulated CODE STATUS: Addressed with the patient. Patient wishes to be DNR Comfort Care arrest no intubation. Patient with a myriad of symptoms, debility. She recommended palliative care consult. Told them that they may not see him till he is outpatient. But he is agreeable. Greater than 50 minutes of which greater than 50% time was counseling the patient about his symptoms, treatment, the reason for consultation to pulmonary, acknowledging his reluctance to see Dr. Manning.
--- NOTE | 2022-11-13 07:26 | PCM.HOSP.N ---
Hospitalist Note patient noted at 3 AM to be wheezing and having difficulty with expiration. The patient did state it was hard to move air. I ordered duoneb and trial of BIPAP. VBG did return later, without significant CO2 retention. His HCO3 was mid thirties.
[2022-11-13] MEDS: Furosemide 40 MG/4 ML Vial IV ×2 (08:23→17:28)
--- NOTE | 2022-11-13 08:43 | PN.HOSP_ITS ---
Reason for Visit Reason for Visit: Diagnoses Chronic atrial fibrillation, unspecified (11/11/22) Unspecified diastolic (congestive) heart failure (11/11/22) Dorsalgia, unspecified (11/11/22) Other malaise (11/11/22) Solitary pulmonary nodule (11/11/22) Dependent relative needing care at home (11/11/22) Subjective Subjective Worsening respiratory status and confusion overnight. Able to be weaned off BiPAP, but remains confused. Objective Data Objective Data Vital Signs: Vital Signs Temp Pulse Resp BP Pulse Ox O2 Del Method O2 Flow Rate 36.7 C 103 H 19 H 106/66 98 Bi-pap 15 11/13/22 06:00 11/13/22 08:19 11/13/22 06:00 11/13/22 08:19 11/13/22 06:00 11/13/22 06:00 11/13/22 03:19 FiO2 60 11/13/22 06:00 Oxygen Flow Rate (L/min) 15 Oxygen Delivery Method Bi-pap Weight: 102.1 kg Body Mass Index (BMI) 30.5 Intake & Output: Intake and Output for Last 24 Hours 11/11/22 11/12/22 11/13/22 23:59 23:59 23:59 Intake Total 300 / 300 650 / 650 Output Total 750 / 750 1350 / 1350 150 / 150 Balance -450 / -450 -700 / -700 -150 / -150 Lab / Micro Data Result Diagrams: 11/13/22 05:30 11/13/22 05:30 Labs: Laboratory Results - last 24 hr 11/13/22 05:30: PT 25.2 H, INR 2.3 11/13/22 05:30: WBC 9.7, RBC 4.16 L, Hgb 11.6 L, Hct 37.7 L, MCV 90.6, MCH 27.9, MCHC 30.8 L, RDW Std Deviation 51.0 H, RDW Coeff of Marcelino 15.6 H, Plt Count 160, MPV 11.8, Immature Gran % (Auto) 0.500, Neut % (Auto) 88.9 H, Lymph % (Auto) 3.4 L, [place] % (Auto) 6.9, Eos % (Auto) 0.1, Baso % (Auto) 0.2, Absolute Neuts (auto) 8.6 H, Absolute Lymphs (auto) 0.33 L, Nucleated RBC % 0, Anisocytosis 1+ 11/13/22 05:30: Sodium 138, Potassium 4.2, Chloride 104, Carbon Dioxide 30.0, Anion Gap 4 L, BUN 44 H, Creatinine 1.42 H, Estim Creat Clear Calc 40.23, Est GFR (MDRD) Af Amer 61, Est GFR (MDRD) Non-Af 50 L, BUN/Creatinine Ratio 31.0 H, Glucose 120 H, Calcium 10.6 H ABG Data ABG results: ABG 11/13/22 04:02 Specimen Type STEFAN VBG pH 7.42 VBG pO2 71 H VBG HCO3 33 H VBG Total CO2 34 H VBG O2 Sat (Calc) 94 H VBG Base Excess 8 H POC Mix VBG pCO2 Pt Tmp 50.2 O2 Delivery Device BiPAP Radiography Diagnostic Testing: Radiology Impression Echocardiogram 11/11/22 13:47 Interpretation Summary The estimated ejection fraction is 65 %. There is evidence of diastolic dysfunction. The left atrium is mildly enlarged. Trivial mitral valve insufficiency. Ordering Physician: Kevin Hardy Referring Physician: Kevin Boogie Performed By: Adam Landry RCS Physical Exam Const Orientation / Consciousness: confused HEENT head/scalp atraumatic and moist oral mucous membranes Resp Resp Narrative: coarse BS bilaterally. Cardio regular rate, regular rhythm, S1 normal heart sound and S2 normal heart sound GI normal to inspection, nondistended, normoactive bowel sounds and soft to palpation Assessment & Plan Assessment/Plan (1) Heart failure with preserved ejection fraction: PLAN: EF of 60% from 2D echocardiogram from February 10, 2020. Hold his furosemide and metolazone Continue with IV furosemide 40 mg twice daily Recheck 2D echocardiogram shows EF 65%. (2) Lung nodule: PLAN: Does have some mediastinal lymphadenopathy concerning for malignancy Dimensions have increased for the past month Patient had recently seen Dr. Manning on October 17 and was to have a PET scan, to which patient has not had done yet. Informed the patient I was can have Dr. Manning see him as his respiratory status was getting worse and this mass peer to be getting larger. He stated that he did not want Dr. Manning to say him because he did not like his interaction with him when he saw me in the office. Additionally, patient would not want additional work-up even if this is cancer. We will discontinue the pulmonary consult. (3) Debility: PLAN: Patient has progressively gotten weaker and is not able to help his as he was previously. PT OT evaluate and treat. Patient is open to going to a nursing home facility if he qualifies. (4) Caregiver burden: PLAN: Patient and his jennyon take care of his . The patient's is kim's mother. They are both overwhelmed by her care needs. Kim expresses that she does not want to go into a rest home. He said he was recently provided paperwork by her primary care provider. Advised him to bring that in and we have case management review that this provides some recommendations. I did tell them that since the patient is a priority we cannot manage her resources to provide some recommendations. (5) Chronic atrial fibrillation with RVR: PLAN: Acute exacerbation Improved with IV metoprolol Continue with metoprolol succinate Patient's INR is 3.6 (6) Back pain: PLAN: Chronic L4 loss of height. Pain control check 25 oh D level (7) Acute hypercapnic respiratory failure: PLAN: CXR improved pulmonary vascular congestion. Required BiPAP VBG showed elevated Co2, check ABG, if able (8) Encephalopathy acute: PLAN: Unclear etiology. Suspect metabolic given hypercapnic respiratory failure. Tramadol discontinued PLAN: Plan Chronic conditions * Hypothyroidism: Continue levothyroxine * CAD: Status post CABG. Currently stable. Continue with atorvastatin. VTE prophylaxis: Not indicated since patient is already anticoagulated CODE STATUS: Addressed with the patient. Patient wishes to be DNR Comfort Care arrest no intubation. Charges/Coding Visit Charges Inpatient E&M: 59733 Subs Hosp L2
--- NOTE | 2022-11-13 08:43 | CCN.REFER ---
Discharge Planning Therapy evals and updates sent to [facility] per request. Eliana Dye, Discharge Planning Asst.
--- NOTE | 2022-11-13 08:50 | RAD_ITS ---
STUDY: X-RAY CHEST REASON FOR EXAM: Male, 87 years old. Respiratory failure. TECHNIQUE: Single AP portable view of the chest. COMPARISON: Comparison is made with prior study dated November 11, 2022. FINDINGS: EKG electrodes are seen. Progressive atelectasis and/or infiltrate in the left lower lobe with a small left pleural effusion. Slight improved aeration at the right lung base. Residual increased markings as well as blunting of the right costophrenic angle. Sternal cerclage wires are present from a prior sternotomy. Prior mitral valve replacement. Normal mediastinum and megan. Normal visualized pulmonary arteries. There is atherosclerotic calcification of the aortic arch with tortuosity. Normal visualized thoracic spine. Normal visualized ribs, clavicles, and shoulders. There is no demonstrated abnormality of the visualized soft tissue structures of the upper abdomen. RAD/Chest 1 View (Portable) IMPRESSION: Progressive atelectasis/infiltration in the left lower lobe with air left pleural effusion. Improved aeration at the right lung base with residual pleural-parenchymal changes seen. Electronically Signed: Ruben Hare MD at 9:28 EDT ,
--- NOTE | 2022-11-13 10:05 | NURSING ---
patient becoming restless pulling Bipap off. RT called to room. O2 had been changed to 10L high flow oxygen. given update on restlessness and patient unable to take meds by bandar
--- NOTE | 2022-11-13 13:47 | CASEMGMT ---
SW notified patient's son Prem that [facility] has accepted patient. Prem was tearful and not sure patient will make it out of the hospital. RN and SW provided emotional support. Meghna KNIGHT
[2022-11-13 14:29] LABS: Allen Test Positive; Base Excess 8 mmol/L (-2 to +2); Bicarbonate 33.9 mmol/L (22-26); Blood Gas Specimen Type ART; O2 Delivery Device Cannula; PO2 84 mmHG (75-100); SITE L Radial; SO2 95 % (95-99); Total Carbon Dioxide 36 mmol/L; pCO2 63.1 mmHg (35-45); pH 7.34 (7.35-7.45)
[2022-11-13] MEDS: Ascorbic Acid 500 MG Tablet 1000 MG PO (20:50)
[2022-11-13] MEDS: 0.9% Saline Lock 10 ML Syringe IV (20:51)
[2022-11-13] MEDS: Metoprolol(XL)Succ 100 MG Tablet PO (20:52)
--- NOTE | 2022-11-13 22:32 | NURSING ---
This RN called and spoke with pt Corinne to give update. very thankful and appreciated with staff.
[2022-11-13] MEDS: Metoprolol Tartrate 5 MG/5 ML Vial IV (23:17)
[2022-11-13] MEDS: Acetaminophen 325 MG Tablet 650 MG PO (23:24)
[2022-11-13] MEDS: MELATONIN 3 MG TABLET PO (23:24)
[2022-11-14] VITALS (27 sets, daily range): BP systolic 97–121; BP diastolic 60–89; PULSE 93–133; RESP 14–26; TEMP 36.1–36.6; O2SAT 6–97
[2022-11-14] MEDS: Levothyroxine 125 MCG Tablet PO (05:06)
[2022-11-14 06:22] LABS: Absolute Lymphocyte Count 0.49 X10^3/uL (0.83-4.51); Absolute Neutrophil Count 9.3 X10^3/uL (2.0-7.7); Basophil# 0.04 X10^3/uL; Basophil% 0.4 % (0-1); Eosinophil# 0.07 X10^3/uL; Eosinophils% 0.6 % (0-5); Hemoglobin 12.5 g/dL (13.0-16.5); Lymphocyte # 0.49 X10^3/ul (0.83-4.51); Lymphocyte % 4.5 % (19-41); Mean Corp Hgb Conc 30.5 g/dL (32-36); Mean Corpuscular Hgb 27.8 pg (27.0-32.0); Mean Corpuscular Volume 91.1 fL (80-94); Monocyte# 0.87 X10^3/uL; Monocyte% 8.1 % (0-10); NRBC Flagged by Analyzer 0 % (0-5); Neutrophil # 9.26 X10^3/uL (2.7-7.7); Neutrophil % 85.8 % (47-70); POSITIVE DIFFERENTIAL YES; Platelet Count 180 K/mm3 (150-450); RBC Distribution Width CV 15.8 % (11.6-14.6); RBC Distribution Width SD 52.3 fl (35.1-43.9); White Blood Count 10.8 K/mm3 (4.4-11.0)
[2022-11-14 06:23] LABS: Differential Indicated SCAN CRITERIA MET
[2022-11-14 06:30] LABS: International Normalized Ratio 1.7; Prothrombin Time (Protime)PT. 20.4 SECONDS (11.7-14.9)
[2022-11-14 06:42] LABS: Anisocytosis 1+
[2022-11-14 06:51] LABS: Anion Gap 5 (5-15); BUN 47 mg/dL (7-18); BUN/Creat Ratio 38.5 RATIO (10-20); Chloride 104 mmol/L (98-107); Creatinine, Serum 1.22 mg/dL (0.70-1.30); EST Glomerular Filtration Rate 60 mL/min (>60); Est Glom Filt Rate - Afr Amer 72 mL/min (>60); Estimated Creatinine Clearance 46.82 ml/min; Glucose 89 mg/dL (74-106); Potassium 4.1 mmol/L (3.5-5.1); Sodium Level 139 mmol/L (136-145)
--- NOTE | 2022-11-14 08:23 | PCM.PN.HOSP ---
Reason for Visit Reason for Visit: Diagnoses Encephalopathy, unspecified (11/11/22) Chronic atrial fibrillation, unspecified (11/11/22) Unspecified diastolic (congestive) heart failure (11/11/22) Acute respiratory failure with hypercapnia (11/11/22) Dorsalgia, unspecified (11/11/22) Other malaise (11/11/22) Solitary pulmonary nodule (11/11/22) Dependent relative needing care at home (11/11/22) Subjective Subjective Has not use BiPAP since last night. More alert today, but remains confused. Objective Data Objective Data Vital Signs: Vital Signs Temp Pulse Resp BP Pulse Ox O2 Del Method O2 Flow Rate 36.1 C L 99 19 H 119/89 H 94 High Flow 6 11/14/22 05:51 11/14/22 05:51 11/14/22 05:51 11/14/22 05:51 11/14/22 05:51 11/14/22 05:51 11/14/22 05:51 FiO2 60 11/13/22 19:28 Oxygen Flow Rate (L/min) 6 Oxygen Delivery Method High Flow Weight: 102.1 kg Body Mass Index (BMI) 30.5 Intake & Output: Intake and Output for Last 24 Hours 11/12/22 11/13/22 11/14/22 23:59 23:59 23:59 Intake Total 650 / 650 30 / 30 140 / 140 Output Total 1350 / 1350 350 / 350 300 / 300 Balance -700 / -700 -320 / -320 -160 / -160 Lab / Micro Data Result Diagrams: 11/14/22 06:07 11/14/22 06:07 Labs: Laboratory Results - last 24 hr 11/12/22 05:53: Vitamin D 25-Hydroxy 25.0 11/14/22 06:07: PT 20.4 H, INR 1.7 11/14/22 06:07: WBC 10.8, RBC 4.50 L, Hgb 12.5 L, Hct 41.0, MCV 91.1, MCH 27.8, MCHC 30.5 L, RDW Std Deviation 52.3 H, RDW Coeff of Marcelino 15.8 H, Plt Count 180, MPV 12.0, Immature Gran % (Auto) 0.600, Neut % (Auto) 85.8 H, Lymph % (Auto) 4.5 L, [place] % (Auto) 8.1, Eos % (Auto) 0.6, Baso % (Auto) 0.4, Absolute Neuts (auto) 9.3 H, Absolute Lymphs (auto) 0.49 L, Nucleated RBC % 0, Anisocytosis 1+ 11/14/22 06:07: Sodium 139, Potassium 4.1, Chloride 104, Carbon Dioxide 30.0, Anion Gap 5, BUN 47 H, Creatinine 1.22, Estim Creat Clear Calc 46.82, Est GFR (MDRD) Af Amer 72, Est GFR (MDRD) Non-Af 60, BUN/Creatinine Ratio 38.5 H, Glucose 89, Calcium 11.0 H ABG Data ABG results: ABG 11/13/22 14:25 Specimen Type ART Sample Site L Radial pH 7.34 L Bicarbonate Actual 33.9 H Total CO2 36 Base Excess 8 H O2 Saturation 95 ABG pCO2 63.1 H ABG pO2 84 Jatinder Test Positive O2 Delivery Device Cannula Liter Flow 10.0 Radiography Diagnostic Testing: Radiology Impression Chest X-Ray 11/13/22 08:50 IMPRESSION: Progressive atelectasis/infiltration in the left lower lobe with air left pleural effusion. Improved aeration at the right lung base with residual pleural-parenchymal changes seen. Electronically Signed: Ruben Hare MD at 9:28 EDT , Physical Exam Const alert and no apparent distress HEENT head/scalp atraumatic and moist oral mucous membranes Resp normal respiratory effort and no retractions Cardio regular rate, regular rhythm, S1 normal heart sound and S2 normal heart sound GI normal to inspection, nondistended, normoactive bowel sounds, soft to palpation, non-tender and non-distended Assessment & Plan Assessment/Plan (1) Heart failure with preserved ejection fraction: PLAN: EF of 60% from 2D echocardiogram from February 10, 2020. Hold his furosemide and metolazone Continue with IV furosemide 40 mg twice daily Recheck 2D echocardiogram shows EF 65%. (2) Lung nodule: PLAN: Does have some mediastinal lymphadenopathy concerning for malignancy Dimensions have increased for the past month Patient had recently seen Dr. Manning on October 17 and was to have a PET scan, to which patient has not had done yet. Informed the patient I was can have Dr. Manning see him as his respiratory status was getting worse and this mass peer to be getting larger. He stated that he did not want Dr. Manning to say him because he did not like his interaction with him when he saw me in the office. Additionally, patient would not want additional work-up even if this is cancer. We will discontinue the pulmonary consult. (3) Debility: PLAN: Patient has progressively gotten weaker and is not able to help his as he was previously. PT OT evaluate and treat. Patient is open to going to a [place] [facility] facility if he qualifies. (4) Caregiver burden: PLAN: Patient and his jennyon take care of his . The patient's is kim's mother. They are both overwhelmed by her care needs. Kim expresses that she does not want to go into a rest home. He said he was recently provided paperwork by her primary care provider. Advised him to bring that in and we have case management review that this provides some recommendations. I did tell them that since the patient is a priority we cannot manage her resources to provide some recommendations. (5) Chronic atrial fibrillation with RVR: PLAN: Acute exacerbation Improved with IV metoprolol Continue with metoprolol succinate Patient's INR is 3.6 (6) Back pain: PLAN: Chronic L4 loss of height. Pain control check 25 oh D level (7) Acute hypercapnic respiratory failure: PLAN: improved, CXR improved pulmonary vascular congestion. Required BiPAP VBG showed elevated Co2, ABG also showed elevated pCO2. Encourage BiPAP with sleep and naps. (8) Encephalopathy acute: PLAN: Improved, but ongoing Unclear etiology. Suspect metabolic given hypercapnic respiratory failure. Tramadol discontinued (9) Hypercalcemia: PLAN: 25 oh D 25, therefore, no vitamin D toxicity Check PTH PLAN: Plan Chronic conditions Hypothyroidism: Continue levothyroxine CAD: Status post CABG. Currently stable. Continue with atorvastatin. VTE prophylaxis: Not indicated since patient is already anticoagulated CODE STATUS: Addressed with the patient. Patient wishes to be DNR Comfort Care arrest no intubation. Charges/Coding Visit Charges Inpatient E&M: 29286 Subs Hosp L2
[2022-11-14] MEDS: Potassium Chloride Oral Tablet 20 MEQ PO (09:14)
[2022-11-14] MEDS: Atorvastatin Calcium 80 MG Tablet PO (09:14)
[2022-11-14] MEDS: Ascorbic Acid 500 MG Tablet 1000 MG PO ×2 (09:14→20:30)
[2022-11-14 09:21] LABS: PTHIN 209.1 pg/mL (18.4-80.1)
[2022-11-14] MEDS: Furosemide 40 MG/4 ML Vial IV ×2 (11:31→19:01)
[2022-11-14] MEDS: Metoprolol Tartrate 5 MG/5 ML Vial IV ×4 (12:02→23:11)
--- NOTE | 2022-11-14 14:51 | CASEMGMT ---
Discharge Planning Updates sent to [facility] via [facility]. Eliana Dye, Discharge Planning Asst.
[2022-11-14] MEDS: 0.9% Saline Lock 10 ML Syringe IV (23:12)
[2022-11-15] VITALS (29 sets, daily range): BP systolic 92–131; BP diastolic 57–89; PULSE 102–139; RESP 14–32; TEMP 36.1–36.8; O2SAT 92–99
[2022-11-15] MEDS: Acetaminophen 325 MG Tablet 650 MG PO ×2 (00:56→20:51)
--- NOTE | 2022-11-15 05:15 | CPS ---
RN called stating patient is off of bipap and back to 8L NC
--- NOTE | 2022-11-15 05:16 | CPS ---
RN called stating patient is back on 8L NC and off bipap
--- NOTE | 2022-11-15 05:17 | CPS ---
RN called stating patient is off bipap and back on 8L NC
[2022-11-15] MEDS: Metoprolol Tartrate 5 MG/5 ML Vial IV ×3 (05:32→16:42)
[2022-11-15] MEDS: 0.9% Saline Lock 10 ML Syringe IV ×5 (05:33→17:17)
[2022-11-15] MEDS: Levothyroxine 125 MCG Tablet PO (05:36)
--- NOTE | 2022-11-15 05:36 | CPS ---
STORE STOCK ASSOCIATE found V60 Bipap on 12/01, RR 14 and 50%
[2022-11-15 06:41] LABS: Absolute Lymphocyte Count 0.56 X10^3/uL (0.83-4.51); Absolute Neutrophil Count 8.7 X10^3/uL (2.0-7.7); Basophil# 0.05 X10^3/uL; Basophil% 0.5 % (0-1); Eosinophil# 0.11 X10^3/uL; Eosinophils% 1.1 % (0-5); Hematocrit 41.1 % (40-54); Hemoglobin 12.5 g/dL (13.0-16.5); Lymphocyte # 0.56 X10^3/ul (0.83-4.51); Lymphocyte % 5.4 % (19-41); Mean Corp Hgb Conc 30.4 g/dL (32-36); Mean Corpuscular Hgb 27.7 pg (27.0-32.0); Mean Corpuscular Volume 90.9 fL (80-94); Mean Platelet Vol. 11.6 fl (6.2-12.0); Monocyte# 0.83 X10^3/uL; Monocyte% 8.1 % (0-10); NRBC Flagged by Analyzer 0 % (0-5); Neutrophil # 8.67 X10^3/uL (2.7-7.7); Neutrophil % 84.3 % (47-70); POSITIVE DIFFERENTIAL YES; Platelet Count 181 K/mm3 (150-450); RBC Distribution Width CV 15.9 % (11.6-14.6); RBC Distribution Width SD 52.7 fl (35.1-43.9); Red Blood Count 4.52 M/mm3 (4.6-6.2); White Blood Count 10.3 K/mm3 (4.4-11.0)
[2022-11-15 07:04] LABS: International Normalized Ratio 1.6; Prothrombin Time (Protime)PT. 19.4 SECONDS (11.7-14.9)
[2022-11-15 07:11] LABS: Anion Gap 5 (5-15); BUN 52 mg/dL (7-18); BUN/Creat Ratio 41.9 RATIO (10-20); Calcium,Total 10.8 mg/dL (8.5-10.1); Chloride 104 mmol/L (98-107); Creatinine, Serum 1.24 mg/dL (0.70-1.30); EST Glomerular Filtration Rate 59 mL/min (>60); Est Glom Filt Rate - Afr Amer 71 mL/min (>60); Estimated Creatinine Clearance 46.07 ml/min; Glucose 102 mg/dL (74-106); Potassium 4.2 mmol/L (3.5-5.1); Sodium Level 140 mmol/L (136-145)
[2022-11-15 07:12] LABS: Differential Indicated SCAN CRITERIA MET
[2022-11-15 07:13] LABS: Differential Comment SCANNED
[2022-11-15] MEDS: Metoprolol(XL)Succ 100 MG Tablet PO (07:57)
[2022-11-15] MEDS: Potassium Chloride Oral Tablet 20 MEQ PO (08:01)
--- NOTE | 2022-11-15 08:53 | PN.HOSP_ITS ---
Reason for Visit Reason for Visit: Diagnoses Hypercalcemia (11/11/22) Encephalopathy, unspecified (11/11/22) Chronic atrial fibrillation, unspecified (11/11/22) Unspecified diastolic (congestive) heart failure (11/11/22) Acute respiratory failure with hypercapnia (11/11/22) Dorsalgia, unspecified (11/11/22) Other malaise (11/11/22) Solitary pulmonary nodule (11/11/22) Dependent relative needing care at home (11/11/22) Subjective Subjective Eating better. Oxygen able to be weaned down to 3.5. Patient currently alert and oriented. Objective Data Objective Data Vital Signs: Vital Signs Temp Pulse Resp BP Pulse Ox O2 Del Method O2 Flow Rate 36.8 C 127 H 23 H 106/80 98 Nasal Cannula 6 11/15/22 08:00 11/15/22 08:11 11/15/22 08:00 11/15/22 08:00 11/15/22 08:11 11/15/22 08:11 11/15/22 08:11 FiO2 45 11/15/22 04:00 Oxygen Flow Rate (L/min) 6 Oxygen Delivery Method Nasal Cannula Weight: 102.1 kg Body Mass Index (BMI) 30.5 Intake & Output: Intake and Output for Last 24 Hours 11/13/22 11/14/22 11/15/22 23:59 23:59 23:59 Intake Total 30 / 30 1590 / 1710 220 / 220 Output Total 350 / 350 1550 / 1950 900 / 900 Balance -320 / -320 40 / -240 -680 / -680 Lab / Micro Data Result Diagrams: 11/15/22 06:26 11/15/22 06:26 Labs: Laboratory Results - last 24 hr 11/14/22 06:07: PTH Intact 209.1 H 11/15/22 06:26: WBC 10.3, RBC 4.52 L, Hgb 12.5 L, Hct 41.1, MCV 90.9, MCH 27.7, MCHC 30.4 L, RDW Std Deviation 52.7 H, RDW Coeff of Marcelino 15.9 H, Plt Count 181, MPV 11.6, Immature Gran % (Auto) 0.600, Neut % (Auto) 84.3 H, Lymph % (Auto) 5.4 L, [place] % (Auto) 8.1, Eos % (Auto) 1.1, Baso % (Auto) 0.5, Absolute Neuts (auto) 8.7 H, Absolute Lymphs (auto) 0.56 L, Nucleated RBC % 0, Differential Comment SCANNED 11/15/22 06:26: Sodium 140, Potassium 4.2, Chloride 104, Carbon Dioxide 31.0, Anion Gap 5, BUN 52 H, Creatinine 1.24, Estim Creat Clear Calc 46.07, Est GFR (MDRD) Af Amer 71, Est GFR (MDRD) Non-Af 59 L, BUN/Creatinine Ratio 41.9 H, Glucose 102, Calcium 10.8 H 11/15/22 06:26: PT 19.4 H, INR 1.6 Physical Exam Const alert and no apparent distress Resp normal respiratory effort, no retractions, no use of accessory muscles and clear to auscultation bilaterally Cardio Cardio Narrative: Irregularly irregular. GI normal to inspection, nondistended, normoactive bowel sounds, soft to palpation, non-tender and non-distended Extremity Extremity Narrative: Lower extremity edema Assessment & Plan Assessment/Plan (1) Heart failure with preserved ejection fraction: PLAN: EF of 60% from 2D echocardiogram from February 10, 2020. Hold his furosemide and metolazone Continue with IV furosemide 40 mg twice daily Recheck 2D echocardiogram shows EF 65%. (2) Lung nodule: PLAN: Does have some mediastinal lymphadenopathy concerning for malignancy Dimensions have increased for the past month Patient had recently seen Dr. Manning on October 17 and was to have a PET scan, to which patient has not had done yet. Informed the patient I was can have Dr. Manning see him as his respiratory status was getting worse and this mass peer to be getting larger. He stated that he did not want Dr. Manning to say him because he did not like his interaction with him when he saw me in the office. Additionally, patient would not want additional work-up even if this is cancer. We will discontinue the pulmonary consult. (3) Debility: PLAN: Patient has progressively gotten weaker and is not able to help his as he was previously. PT OT evaluate and treat. Patient is open to going to a half-way facility if he qualifies. (4) Caregiver burden: PLAN: Patient and his stepson take care of his . The patient's is annika's mother. They are both overwhelmed by her care needs. Annika expresses that she does not want to go into a rest home. He said he was recently provided paperwork by her primary care provider. Advised him to bring that in and we have case management review that this provides some recommendations. I did tell them that since the patient is a priority we cannot manage her resources to provide some recommendations. (5) Chronic atrial fibrillation with RVR: PLAN: Acute exacerbation INR supratherapeutic on arrival so was held and then was resumed, patient did not received on the due to lethargy. Continue with 5 mg and monitor. Ongoing. Will discontinue the metoprolol succinate 100, change him over to metoprolol tartrate 75 twice daily. We will have IV metoprolol available. Monitor. (6) Back pain: PLAN: Chronic L4 loss of height. Pain control 25 oh D level 25. Would not treat, however, given what appears to be primary hyperparathyroidism. (7) Acute hypercapnic respiratory failure: PLAN: improved, CXR improved pulmonary vascular congestion. Required BiPAP VBG showed elevated Co2, ABG also showed elevated pCO2. Encourage BiPAP with sleep and naps. (8) Encephalopathy acute: PLAN: Improved, but ongoing Unclear etiology. Suspect metabolic given hypercapnic respiratory failure. Tramadol discontinued (9) Hypercalcemia: PLAN: Suspect due to primary hyperparathryroidism Correct for albumin, Ca is 11.7. 25 oh D 25, therefore, no vitamin D toxicity PTH 209 Given frailty, pt is a poor candidate for parathyroidectomy. 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 Hold off on cinacalcet. PLAN: Plan Chronic conditions * Hypothyroidism: Continue levothyroxine * CAD: Status post CABG. Currently stable. Continue with atorvastatin. VTE prophylaxis: Not indicated since patient is already anticoagulated CODE STATUS: Addressed with the patient. Patient wishes to be DNR Comfort Care arrest no intubation. Disposition: To half-way facility pending medical stability. Discussed with the patient's son-in-law at bedside. Charges/Coding Visit Charges Inpatient E&M: 59127 Subs Hosp L2
--- NOTE | 2022-11-15 09:45 | CASEMGMT ---
SW sent bipap settings to [place] [facility]. Meghna Fairbanks PAVING AND [employer]FACING LABOURER ANTONIA
[2022-11-15] MEDS: Furosemide 40 MG/4 ML Vial IV ×2 (10:14→17:17)
[2022-11-15] MEDS: Ascorbic Acid 500 MG Tablet 1000 MG PO ×2 (10:15→20:50)
[2022-11-15] MEDS: Atorvastatin Calcium 80 MG Tablet PO (10:15)
--- NOTE | 2022-11-15 16:55 | CASEMGMT ---
[facility] will not have any beds for patient until next week. Meghna Fairbanks INTERNAL WHOLESALER ANTONIA
[2022-11-15] MEDS: Metoprolol Tartrate 50 MG Tablet 75 MG PO (20:51)
[2022-11-15] MEDS: MELATONIN 3 MG TABLET PO (21:02)
[2022-11-16] VITALS (13 sets, daily range): BP systolic 98–127; BP diastolic 63–88; PULSE 94–124; RESP 14–27; TEMP 36.1–36.6; O2SAT 94–97
--- NOTE | 2022-11-16 00:47 | NURSING ---
Attempted to have pt wear bipap tonight. Pt has been confuses more this evening. Has been taking off O2 and telemetry frequently. Pt only wore bipap a short time tonight and is refusing to let staff reapply it. O2 is in use at 5l per nasal canula however he frequently removes both the o2 and the continuous pulse ox monitor. Educated pt on the reason he needs to wear the oxygen with little success.
[2022-11-16] MEDS: LORazepam 2 MG/ML Syringe 0.5 MG IV (01:26)
[2022-11-16] MEDS: 0.9% Saline Lock 10 ML Syringe IV ×3 (01:29→17:30)
--- NOTE | 2022-11-16 02:25 | NURSING ---
Pt continues to be very restless tonight. Seems to be hallucinating at times. States wants out of bed to go to a house down the [place]. Has required frequent checks on him d/t pulling off O2 tonight.
[2022-11-16] MEDS: Levothyroxine 125 MCG Tablet PO (04:38)
[2022-11-16] MEDS: Acetaminophen 325 MG Tablet 650 MG PO (04:38)
--- NOTE | 2022-11-16 04:55 | NURSING ---
Prn dose of ativan that was ordered if needed after the first was not given due to the first dose making the pt more confused and agitated.
[2022-11-16 06:26] LABS: Prothrombin Time (Protime)PT. 22.5 SECONDS (11.7-14.9)
[2022-11-16 06:30] LABS: Anion Gap 4 (5-15); BUN 54 mg/dL (7-18); BUN/Creat Ratio 43.5 RATIO (10-20); Calcium,Total 11.1 mg/dL (8.5-10.1); Chloride 103 mmol/L (98-107); Creatinine, Serum 1.24 mg/dL (0.70-1.30); EST Glomerular Filtration Rate 59 mL/min (>60); Est Glom Filt Rate - Afr Amer 71 mL/min (>60); Estimated Creatinine Clearance 46.07 ml/min; Glucose 118 mg/dL (74-106); Potassium 4.1 mmol/L (3.5-5.1); Sodium Level 140 mmol/L (136-145)
[2022-11-16] MEDS: Furosemide 40 MG/4 ML Vial IV ×2 (08:05→17:30)
[2022-11-16] MEDS: Potassium Chloride Oral Tablet 20 MEQ PO (08:05)
--- NOTE | 2022-11-16 08:07 | PN.HOSP_ITS ---
Reason for Visit Reason for Visit: Diagnoses Hypercalcemia (11/11/22) Encephalopathy, unspecified (11/11/22) Chronic atrial fibrillation, unspecified (11/11/22) Unspecified diastolic (congestive) heart failure (11/11/22) Acute respiratory failure with hypercapnia (11/11/22) Dorsalgia, unspecified (11/11/22) Other malaise (11/11/22) Solitary pulmonary nodule (11/11/22) Dependent relative needing care at home (11/11/22) Objective Data Objective Data Vital Signs: Vital Signs Temp Pulse Resp BP Pulse Ox O2 Del Method O2 Flow Rate 97.1 F L 108 H 20 H 121/88 H 96 High Flow 6 11/16/22 03:58 11/16/22 03:58 11/16/22 03:58 11/16/22 03:58 11/16/22 03:58 11/16/22 03:58 11/16/22 03:58 FiO2 50 11/16/22 06:00 Oxygen Flow Rate (L/min) 6 Oxygen Delivery Method High Flow Weight: 225 lb 1.471 oz Body Mass Index (BMI) 30.5 Intake & Output: Intake and Output for Last 24 Hours 11/14/22 11/15/22 11/16/22 23:59 23:59 23:59 Intake Total 1590 / 1710 680 / 800 220 / 220 Output Total 1550 / 1950 1650 / 2150 900 / 900 Balance 40 / -240 -970 / -1350 -680 / -680 Lab / Micro Data Result Diagrams: 11/15/22 06:26 11/16/22 05:35 Labs: Laboratory Results - last 24 hr 11/16/22 05:35: PT 22.5 H, INR 2.0 11/16/22 05:35: Sodium 140, Potassium 4.1, Chloride 103, Carbon Dioxide 33.0 H, Anion Gap 4 L, BUN 54 H, Creatinine 1.24, Estim Creat Clear Calc 46.07, Est GFR (MDRD) Af Amer 71, Est GFR (MDRD) Non-Af 59 L, BUN/Creatinine Ratio 43.5 H, Glucose 118 H, Calcium 11.1 H Physical Exam Narrative Seen and examined. Patient is short of breath, dyspnea at rest. Denies chest pain or pressure. Conversational dyspnea. Physical exam General: Alert, mild respiratory distress cooperative HEENT: Atraumatic, PERRLA, EOMI, Normocephalic Oral: No Gingival or Mucosal Lesions/ Ulcerations Neck: Supple, No JVD, Negative Carotid Bruits Lungs: Air entry diminished in bilateral lung bases. Bilateral expiratory rhonchi, dyspnea at rest on 10 L of oxygen. Cardiovascular: Regular rate, Regular Rhythm, Normal S1, Normal S2, No murmurs Abdomen: Bowel Sounds Present, Soft, Non Tender, Non-Distended : No renal angle tenderness. No suprapubic tenderness. Extremities: No edema, Capillary Refill Less than 3 Seconds Skin: No rashes, No breakdown Musculoskeletal: No Tenderness to Palpation of Joints or Extremities. ROM restricted. Neurological: Cranial nerves II-XII grossly intact, DTR 2+/4 detailed neuro exam not done because of respiratory distress Psych/Mental Status: Flat affect. Assessment & Plan Assessment/Plan (1) Heart failure with preserved ejection fraction: PLAN: EF of 60% from 2D echocardiogram from February 10, 2020. Hold oral furosemide and metolazone Continue with IV furosemide 40 mg twice daily Recheck 2D echocardiogram shows EF 65%. LA mildly enlarged trivial MR. PASP 45 mmHg. Chest x-ray individually reviewed and shows atelectasis in left lower lobe, with chronic pleural pulmonary fibrosis/atelectasis (2) Lung nodule: PLAN: Does have some mediastinal lymphadenopathy concerning for malignancy Dimensions have increased for the past month Patient had recently seen Dr. Manning on October 17 and was to have a PET scan, to which patient has not had done yet. To my hospitalist colleague, he stated that he did not want Dr. Manning to say him because he did not like his interaction with him when he saw me in the office. Additionally, patient would not want additional work-up even if this is cancer. Therefore pulmonary consult was discontinued (3) Debility: PLAN: Patient has progressively gotten weaker and is not able to help his as he was previously. PT OT evaluate and treat. Patient is open to going to a retirement facility if he qualifies. (4) Caregiver burden: PLAN: Patient and his jennyon take care of his . The patient's is annika's mother. They are both overwhelmed by her care needs. Annika expresses that she does not want to go into a rest home. He said he was recently provided paperwork by her primary care provider. Advised him to bring that in and we have case management review that this provides some recommendations. I did tell them that since the patient is a priority we cannot manage her resources to provide some recommendations. (5) Chronic atrial fibrillation with RVR: PLAN: Acute exacerbation INR supratherapeutic on arrival so was held and then was resumed, patient did not received on the due to lethargy. Continue with 5 mg and monitor. Ongoing. Will discontinue the metoprolol succinate 100, change him over to metoprolol tartrate 75 twice daily. IV metoprolol as needed. INR therapeutic Laboratory Results 11/16/22 05:35: PT 22.5 H, INR 2.0 11/16/22 05:35: Sodium 140, Potassium 4.1, Chloride 103, Carbon Dioxide 33.0 H, Anion Gap 4 L, BUN 54 H, Creatinine 1.24, Estim Creat Clear Calc 46.07, Est GFR (MDRD) Af Amer 71, Est GFR (MDRD) Non-Af 59 L, BUN/Creatinine Ratio 43.5 H, Glucose 118 H, Calcium 11.1 H (6) Back pain: PLAN: Chronic L4 loss of height. Pain control 25 oh D level 25. Would not treat, however, given what appears to be primary hyperparathyroidism. (7) Acute hypercapnic respiratory failure: PLAN: improved, CXR improved pulmonary vascular congestion. Required BiPAP VBG showed elevated Co2, ABG also showed elevated pCO2. Encourage BiPAP with sleep and naps. (8) Encephalopathy acute: PLAN: Improved, but ongoing Unclear etiology. Suspect metabolic given hypercapnic respiratory failure. Tramadol discontinued (9) Hypercalcemia: PLAN: Suspect due to primary hyperparathryroidism Correct for albumin, Ca is 11.7. 25 oh D 25, therefore, no vitamin D toxicity PTH 209 Given frailty, pt is a poor candidate for parathyroidectomy. 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 Hold off on cinacalcet. PLAN: Plan Chronic conditions * Hypothyroidism: Continue levothyroxine * CAD: Status post CABG. Currently stable. Continue with atorvastatin. VTE prophylaxis: Not indicated since patient is already anticoagulated CODE STATUS: Addressed with the patient. Patient wishes to be DNR Comfort Care arrest no intubation. Disposition: To retirement facility pending medical stability. Charges/Coding Visit Charges Inpatient E&M: 64076 Subs Hosp L2
[2022-11-16] MEDS: Metoprolol Tartrate 50 MG Tablet 75 MG PO ×2 (08:09→20:14)
[2022-11-16] MEDS: Ascorbic Acid 500 MG Tablet 1000 MG PO ×2 (08:09→20:14)
[2022-11-16] MEDS: Atorvastatin Calcium 80 MG Tablet PO (08:11)
[2022-11-17] VITALS (26 sets, daily range): BP systolic 91–110; BP diastolic 56–83; PULSE 89–133; RESP 14–33; TEMP 36.3–36.6; O2SAT 93–98
[2022-11-17 06:17] LABS: Absolute Lymphocyte Count 0.58 X10^3/uL (0.83-4.51); Absolute Neutrophil Count 9.2 X10^3/uL (2.0-7.7); Basophil# 0.06 X10^3/uL; Basophil% 0.6 % (0-1); Eosinophils% 0.9 % (0-5); Hematocrit 43.5 % (40-54); Hemoglobin 13.1 g/dL (13.0-16.5); Lymphocyte # 0.58 X10^3/ul (0.83-4.51); Lymphocyte % 5.4 % (19-41); Mean Corp Hgb Conc 30.1 g/dL (32-36); Mean Corpuscular Hgb 27.7 pg (27.0-32.0); Mean Platelet Vol. 11.8 fl (6.2-12.0); Monocyte# 0.82 X10^3/uL; Monocyte% 7.6 % (0-10); NRBC Flagged by Analyzer 0 % (0-5); Neutrophil # 9.16 X10^3/uL (2.7-7.7); Neutrophil % 84.7 % (47-70); POSITIVE DIFFERENTIAL YES; Platelet Count 183 K/mm3 (150-450); RBC Distribution Width SD 54.2 fl (35.1-43.9); Red Blood Count 4.73 M/mm3 (4.6-6.2); White Blood Count 10.8 K/mm3 (4.4-11.0)
[2022-11-17 06:25] LABS: International Normalized Ratio 2.6; Prothrombin Time (Protime)PT. 27.8 SECONDS (11.7-14.9)
[2022-11-17 06:43] LABS: Anion Gap 6 (5-15); BUN 47 mg/dL (7-18); BUN/Creat Ratio 43.1 RATIO (10-20); Chloride 104 mmol/L (98-107); Creatinine, Serum 1.09 mg/dL (0.70-1.30); EST Glomerular Filtration Rate 68 mL/min (>60); Est Glom Filt Rate - Afr Amer 82 mL/min (>60); Estimated Creatinine Clearance 52.41 ml/min; Glucose 107 mg/dL (74-106); Potassium 4.2 mmol/L (3.5-5.1); Sodium Level 142 mmol/L (136-145)
[2022-11-17 06:46] LABS: Differential Indicated SCAN CRITERIA MET
[2022-11-17 06:57] LABS: Differential Comment SCANNED
[2022-11-17] MEDS: Albuterol 2.5 MG/3 ML VIAL.NEB. INHALATION (08:07)
[2022-11-17] MEDS: Potassium Chloride Oral Tablet 20 MEQ PO (08:52)
[2022-11-17] MEDS: Furosemide 40 MG/4 ML Vial IV (08:52)
[2022-11-17] MEDS: Metoprolol Tartrate 50 MG Tablet 75 MG PO ×2 (08:53→22:35)
[2022-11-17] MEDS: Atorvastatin Calcium 80 MG Tablet PO (08:53)
[2022-11-17] MEDS: Ascorbic Acid 500 MG Tablet 1000 MG PO ×2 (08:54→22:34)
[2022-11-17] MEDS: 0.9% Saline Lock 10 ML Syringe IV ×2 (08:55→17:23)
--- NOTE | 2022-11-17 09:25 | PN.HOSP_ITS ---
Reason for Visit Reason for Visit: Diagnoses Hypercalcemia (11/11/22) Encephalopathy, unspecified (11/11/22) Chronic atrial fibrillation, unspecified (11/11/22) Unspecified diastolic (congestive) heart failure (11/11/22) Acute respiratory failure with hypercapnia (11/11/22) Dorsalgia, unspecified (11/11/22) Other malaise (11/11/22) Solitary pulmonary nodule (11/11/22) Dependent relative needing care at home (11/11/22) Subjective Subjective Follow-up for acute hypercapnic respiratory failure. Patient is still very short of breath on BiPAP. Objective Data Objective Data Vital Signs: Vital Signs Temp Pulse Resp BP Pulse Ox O2 Del Method O2 Flow Rate 97.7 F L 133 H 21 H 107/58 L 98 High Flow 8 11/17/22 04:00 11/17/22 08:53 11/17/22 08:10 11/17/22 08:53 11/17/22 08:10 11/17/22 08:10 11/17/22 08:10 FiO2 8 11/16/22 22:00 Oxygen Flow Rate (L/min) 8 Oxygen Delivery Method High Flow Weight: 225 lb 1.471 oz Body Mass Index (BMI) 30.5 Intake & Output: Intake and Output for Last 24 Hours 11/15/22 11/16/22 11/17/22 23:59 23:59 23:59 Intake Total 680 / 800 390 / 390 50 / 50 Output Total 1650 / 2150 2350 / 2350 250 / 250 Balance -970 / -1350 -1960 / -1960 -200 / -200 Lab / Micro Data Result Diagrams: 11/17/22 06:00 11/17/22 06:00 Labs: Laboratory Results - last 24 hr 11/17/22 06:00: PT 27.8 H, INR 2.6 11/17/22 06:00: WBC 10.8, RBC 4.73, Hgb 13.1, Hct 43.5, MCV 92.0, MCH 27.7, MCHC 30.1 L, RDW Std Deviation 54.2 H, RDW Coeff of Marcelino 16.0 H, Plt Count 183, MPV 11.8, Immature Gran % (Auto) 0.800, Neut % (Auto) 84.7 H, Lymph % (Auto) 5.4 L, Thayer % (Auto) 7.6, Eos % (Auto) 0.9, Baso % (Auto) 0.6, Absolute Neuts (auto) 9.2 H, Absolute Lymphs (auto) 0.58 L, Nucleated RBC % 0, Differential Comment SCANNED 11/17/22 06:00: Sodium 142, Potassium 4.2, Chloride 104, Carbon Dioxide 32.0, Anion Gap 6, BUN 47 H, Creatinine 1.09, Estim Creat Clear Calc 52.41, Est GFR (MDRD) Af Amer 82, Est GFR (MDRD) Non-Af 68, BUN/Creatinine Ratio 43.1 H, Glucose 107 H, Calcium 11.0 H Physical Exam Narrative Seen and examined. Patient is short of breath, dyspnea at rest. On BiPAP. Denies chest pain or pressure. Physical exam General: Alert, mild respiratory distress cooperative HEENT: Atraumatic, PERRLA, EOMI, Normocephalic Oral: No Gingival or Mucosal Lesions/ Ulcerations Neck: Supple, No JVD, Negative Carotid Bruits Lungs: Air entry diminished in bilateral lung bases. Bilateral expiratory rhonchi, dyspnea at rest on 7-8 L of oxygen/BiPAP Cardiovascular: Regular rate, Regular Rhythm, Normal S1, Normal S2, No murmurs Abdomen: Bowel Sounds Present, Soft, Non Tender, Non-Distended : No renal angle tenderness. No suprapubic tenderness. Extremities: No edema, Capillary Refill Less than 3 Seconds Skin: No rashes, No breakdown Musculoskeletal: No Tenderness to Palpation of Joints or Extremities. ROM restricted. Neurological: Cranial nerves II-XII grossly intact, DTR 2+/4 detailed neuro exam not done because of respiratory distress Psych/Mental Status: Flat affect. Assessment & Plan Assessment/Plan (1) Heart failure with preserved ejection fraction: PLAN: EF of 60% from 2D echocardiogram from February 10, 2020. Hold oral furosemide and metolazone Continue with IV furosemide 40 mg twice daily Recheck 2D echocardiogram shows EF 65%. LA mildly enlarged trivial MR. PASP 45 mmHg. Chest x-ray individually reviewed and shows atelectasis in left lower lobe, with chronic pleural pulmonary fibrosis/atelectasis (2) Lung nodule: PLAN: Does have some mediastinal lymphadenopathy concerning for malignancy Dimensions have increased for the past month Patient had recently seen Dr. Manning on October 17 and was to have a PET scan, to which patient has not had done yet. To my hospitalist colleague, he stated that he did not want Dr. Manning to say him because he did not like his interaction with him when he saw me in the office. Additionally, patient would not want additional work-up even if this is cancer. Therefore pulmonary consult was discontinued (3) Debility: PLAN: Patient has progressively gotten weaker and is not able to help his as he was previously. PT OT evaluate and treat. Patient is open to going to a retirement facility if he qualifies. (4) Caregiver burden: PLAN: Patient and his jennyon take care of his . The patient's is annika's mother. They are both overwhelmed by her care needs. Annika expresses that she does not want to go into a rest home. He said he was recently provided paperwork by her primary care provider. Advised him to bring that in and we have case management review that this provides some recommendations. I did tell them that since the patient is a priority we cannot manage her resources to provide some recommendations. (5) Chronic atrial fibrillation with RVR: PLAN: Acute exacerbation INR supratherapeutic on arrival so was held and then was resumed, patient did not received on the due to lethargy. Continue with 5 mg and monitor. Ongoing. Will discontinue the metoprolol succinate 100, change him over to metoprolol tartrate 75 twice daily. IV metoprolol as needed. INR therapeutic (6) Back pain: PLAN: Chronic L4 loss of height. Pain control 25 oh D level 25. Would not treat, however, given what appears to be primary hyperparathyroidism. (7) Acute hypercapnic respiratory failure: PLAN: improved, CXR improved pulmonary vascular congestion. Required BiPAP VBG showed elevated Co2, ABG also showed elevated pCO2. Encourage BiPAP with sleep and naps. 11/17: No significant change. Patient is still on BiPAP and requiring high amount of oxygen. (8) Encephalopathy acute: PLAN: Improved, but ongoing Unclear etiology. Suspect metabolic given hypercapnic respiratory failure. Tramadol discontinued 11/17: Acute encephalopathy resolved. (9) Hypercalcemia: PLAN: Suspect due to primary hyperparathryroidism Correct for albumin, Ca is 11.7. 25 oh D 25, therefore, no vitamin D toxicity PTH 209 Given frailty, pt is a poor candidate for parathyroidectomy. 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 Hold off on cinacalcet. 11/17 calcium is 11.0. Patient on IV Lasix. Discontinue all diuretic. IV fluid Ringer lactate 75 mill per hour. Discussed with the fast food crew member. Calcitriol 2 mcg IV x1 dose. Started on Sensipar 30 mg once daily first dose now. Monitor calcium, phosphorus, PTH, alkaline phosphatase. Vitamin D level 25, therefore vitamin D replacement is started. Nephrology consult requested PLAN: Plan Chronic conditions * Hypothyroidism: Continue levothyroxine * CAD: Status post CABG. Currently stable. Continue with atorvastatin. VTE prophylaxis: Not indicated since patient is already anticoagulated CODE STATUS: Addressed with the patient. Patient wishes to be DNR Comfort Care arrest no intubation. Disposition: To retirement facility pending medical stability. Charges/Coding Visit Charges Inpatient E&M: 24795 Subs Hosp L2
--- NOTE | 2022-11-17 14:10 | CPS ---
Turned BIPAP on STBY because pt won't keep it on, this is the 3rd time in 45 minutes that he took it off. says he can only stand it so long.
[2022-11-17] MEDS: Lactated Ringers 1,000 ML 75 ML IV (14:32)
--- NOTE | 2022-11-17 15:50 | CT_ITS ---
STUDY: CT BRAIN WITHOUT CONTRAST REASON FOR EXAM: Male, 87 years old. CONFUSION/AMS RADIATION DOSAGE (If Supplied By Facility): CTDIvol = ( 44.99 ) mGy, DLP = ( 914.22 ) mGycm TECHNIQUE: Transaxial CT imaging of the brain was performed without administration of intravenous contrast material. Individualized dose optimization techniques were used for this CT. COMPARISON: No relevant priors. FINDINGS: Normal soft tissue structures. Normal calvarium. There is moderate cerebral atrophy with widening of the extra-axial spaces and ventricular dilatation. There are areas of decreased attenuation within the white matter tracts of the supratentorial brain, consistent with microvascular disease changes. Normal basal ganglia and thalami. Normal brainstem. Normal cerebellum. Hypodensity right perirolandic region. There is no intracranial hemorrhage. There are no findings of an acute ischemic infarction. Intracranial atherosclerosis. Normal visualized paranasal sinuses. CT/Brain/Head without Contrast IMPRESSION: Right perirolandic edema or encephalomalacia. MRI with and without contrast would be helpful if clinically warranted. Electronically Signed: Tolu Poole MD at 18:47 EDT ,
[2022-11-17] MEDS: Cinacalcet HCl 30 MG Tablet PO (16:05)
[2022-11-17] MEDS: Cholecalciferol (Vit D3) 125 MCG CAPSULE (5,000 UNITS) PO (16:05)
[2022-11-17] MEDS: Acetaminophen 325 MG Tablet 650 MG PO (17:23)
[2022-11-17 18:11] LABS: Allen Test Positive; Base Excess 10 mmol/L (-2 to +2); Bicarbonate 34.7 mmol/L (22-26); Blood Gas Specimen Type ART; O2 Delivery Device Cannula; PO2 72 mmHG (75-100); SITE L Radial; SO2 94 % (95-99); Total Carbon Dioxide 36 mmol/L; pCO2 54.3 mmHg (35-45); pH 7.41 (7.35-7.45)
[2022-11-17] MEDS: Metoprolol Tartrate 5 MG/5 ML Vial IV (19:04)
[2022-11-17] MEDS: MELATONIN 3 MG TABLET PO (22:34)
[2022-11-18] VITALS (14 sets, daily range): BP systolic 103–115; BP diastolic 50–89; PULSE 89–103; RESP 14–24; TEMP 36.1–36.7; O2SAT 94–97
--- NOTE | 2022-11-18 04:38 | NURSING ---
Addendum entered by Chloe Gallego 11/18/22 04:39: Pt refusing to wear Bipap Original Note: Pt continues to be very restless tonight. Seems to be hallucinating at times. Has required frequent checks on him d/t pulling off O2 tonight. pt also pulled out IV
[2022-11-18 06:20] LABS: Prothrombin Time (Protime)PT. 31.5 SECONDS (11.7-14.9)
[2022-11-18] MEDS: Levothyroxine 125 MCG Tablet PO (06:20)
[2022-11-18] MEDS: Acetaminophen 325 MG Tablet 650 MG PO (06:20)
[2022-11-18 06:38] LABS: AST(SGOT) 39 U/L (15-37); Alanine Aminotransfer ALT/SGPT 22 U/L (16-61); Albumin, Serum 2.4 g/dL (3.2-5.0); Alkaline Phosphatase 162 U/L (45-117); Anion Gap 4 (5-15); BUN 51 mg/dL (7-18); BUN/Creat Ratio 42.9 RATIO (10-20); Bilirubin, Direct 0.29 mg/dL (0.00-0.30); Calcium,Total 10.6 mg/dL (8.5-10.1); Chloride 104 mmol/L (98-107); Creatinine, Serum 1.19 mg/dL (0.70-1.30); EST Glomerular Filtration Rate 61 mL/min (>60); Est Glom Filt Rate - Afr Amer 74 mL/min (>60); Globulin 4.1 g/dL (2.2-4.2); Glucose 101 mg/dL (74-106); Phosphorus 3.1 mg/dL (2.5-4.9); Potassium 4.5 mmol/L (3.5-5.1); Protein, Total 6.5 g/dL (6.4-8.2); Sodium Level 141 mmol/L (136-145)
[2022-11-18] MEDS: Lactated Ringers 1,000 ML 75 ML IV (06:55)
[2022-11-18 08:03] LABS: PTHIN 130.1 pg/mL (18.4-80.1)
--- NOTE | 2022-11-18 08:44 | CON.PCM.RE_ITS ---
Documented by User: JOSÉ MANUEL Mclain 11/18/22 09:00 Assessment & Plan Assessment/Plan (1) Hypercalcemia: (2) Lung nodule: (3) Heart failure with preserved ejection fraction: PLAN: Plan This is an 87-year-old male with past medical history significant for colon cancer status post colectomy, A-fib status post cardioversion, chronic diastolic heart failure, history of COPD, former tobacco use, history of iron deficiency anemia, hypertension, coronary disease status post coronary bypass graft surgery x3, mitral valve repair, history of recently found lung nodule (was seen by Dr. Manning in September, to have PET scan but not done yet) who was admitted to the hospital for debility and decompensated heart failure. Nephrology consulted for hypercalcemia. Patient noted to have elevated calcium levels since September 2022. Before that calcium levels were normal. Per patient report no recent Tums or calcium supplements at home. Reviewed patient's home medication list. Patient is not bedridden. IV Lasix was stopped and patient started on IV fluids. He was also given calcitonin and Sensipar 30 mg daily. Today calcium level has slightly improved from 11.1-10.6. On October 01, 2022 calcium was 10.5. PTH was 209, today 130. Vitamin D 25-hydroxy 25.0. We will also check serum and urine immunofixation. Apparently patient recently found to have lung nodule but no further work-up has been done. We will continue on gentle IV fluids for another day. Patient is tolerating Sensipar. Further orders forthcoming as hospitalization evolves, thank you for allowing us to participate in the care of Mr. Chawla. HPI Consult Data Date of Consult: 11/18/22 HPI Narrative HPI Narrative: JOSE CHAWLA, is a 87 M with past medical history significant for colon cancer status post colectomy, A-fib status post cardioversion, chronic diastolic heart failure, history of COPD, former tobacco use, history of iron deficiency anemia, hypertension, coronary disease status post coronary bypass graft surgery x3, mitral valve repair, history of lung nodule (was seen by Dr. Manning in September, to have PET scan but not done yet) who was admitted to the hospital on November 11 after presenting to the ER with complaints of weakness and shortness of breath. Patient was admitted for decompensated heart failure and debility. Nephrology consulted for for hypercalcemia. In reviewing calcium trends, patient was noted to have elevated calcium back in September, on October 01, 2022 calcium 10.5, on the calcium 10.3. On admission, November 11 calcium 10.9. Calcium peaked to 11.1 on November 16. Diuretics were stopped and patient was started on IV fluids and also given calcitonin and started on Sensipar. Today his calcium is 10.6. Patient denies any recent [id number] calcium medications, no Tums. No recent lengthy bedrest (patient reports he cares for his at home). [facility] Medical History Abnormality of gait Acid reflux Allergic rhinitis Anemia Anemia requiring transfusions Atherosclerosis of coronary artery of [place]re[place]ski heart without angina pectoris Atrial fibrillation with rapid ventricular response Blood clots in stool Cancer Carotid artery disease Colon cancer COPD (chronic obstructive pulmonary disease) Essential hypertension Former smoker GERD (gastroesophageal reflux disease) GI bleed (04/25/21) Hyperbilirubinemia Hyperlipidemia Hypothyroidism (acquired) Iron deficiency anemia Nonrheumatic mitral (valve) insufficiency Nonsustained paroxysmal supraventricular tachycardia Obesity Paroxysmal atrial fibrillation Personal history of colonic polyps Prostatic hypertrophy Pulmonary embolism Respiratory failure Urinary retention Home Medications atorvastatin 80 mg tablet (Lipitor) 80 mg PO DAILY CHOLESTEROL 07/14/17 [History Last Taken 11/10/22] ascorbic acid (vitamin C) 500 mg tablet 1,000 mg PO BID SUPPLEMENT 02/15/20 [History Last Taken 11/10/22] levothyroxine 125 mcg tablet 125 mcg PO DAILY THYROID 04/25/21 [History Last Taken 11/10/22] furosemide 40 mg tablet 40 mg PO DAILY FLUID 10/01/22 [History Last Taken 11/10/22] metoprolol succinate 100 mg tablet,extended release 24 hr 100 mg PO DAILY BLOOD PRESSURE 10/01/22 [History Last Taken 11/10/22] omega-3 fatty acids 500 mg capsule 500 mg PO DAILY SUPPLEMENT 10/01/22 [History Last Taken 11/10/22] potassium chloride 20 mEq tablet,extended release 20 meq PO DAILY SUPPLEMENT 10/01/22 [History Last Taken 11/10/22] albuterol sulfate 90 mcg/actuation aerosol inhaler 1 puff inhalation Q6H PRN shortness of breath or wheezing #8.5 grams 10/03/22 [Rx Last Taken 11/10/22] warfarin 5 mg tablet (Jantoven) 5 mg PO SuMoWeThFrSa@1700 #30 tabs 10/03/22 [Rx Last Taken 11/10/22] warfarin 7.5 mg tablet (Jantoven) 7.5 mg PO Tu@1700 #0 tabs 10/03/22 [Rx Last Taken 11/10/22] metolazone 2.5 mg tablet See Rx Instructions PO Q OTHER DAY 10/18/22 [History Last Taken 11/10/22] Allergy/AdvReac Type Severity Reaction Status Date / Time adhesive tape Allergy Intermediate dermatitis Verified 11/11/22 08:47 Family History Father , of pneumonia Pneumonia Mother , of CAD CAD (coronary artery disease) Arthritis Sister , Cause unknown Rheumatoid arthritis Oral cancer Sister Arthritis Sister No problems noted. Sister No problems noted. Surgical History H/O coronary artery bypass surgery (12/25/18) History of bladder surgery History of cardioversion (05/31/19) History of colectomy History of colonoscopy (09/30/17) History of esophagogastroduodenoscopy (EGD) (~04/2021) History of mitral valve repair (12/25/18) History of transurethral resection of prostate Status post mitral valve repair (12/25/18) Social History household members: spouse Smoking Status: Former smoker quit date: 06/04/96 pack-years: 40 how long ago did patient quit smokin years ago alcohol intake: never substance use type: does not use caffeine: Yes Type: coffee Number of servings: 2 ROS ROS Narrative As in HPI and past medical history Physical Exam Narrative Alert and oriented x3, no apparent distress Lung sounds clear anteriorly and posteriorly no wheezes, rhonchi rales noted S1, S2, RRR Abdomen soft, nontender, positive bowel sounds No pitting edema Lab / Micro Data Result Diagrams: 11/17/22 06:00 11/18/22 05:54 Labs: Laboratory Results - last 24 hr 11/18/22 05:54: PT 31.5 H, INR 3.0 11/18/22 05:54: Sodium 141, Potassium 4.5, Chloride 104, Carbon Dioxide 33.0 H, Anion Gap 4 L, BUN 51 H, Creatinine 1.19, Estim Creat Clear Calc 48.00, Est GFR (MDRD) Af Amer 74, Est GFR (MDRD) Non-Af 61, BUN/Creatinine Ratio 42.9 H, Glucose 101, Calcium 10.6 H, Phosphorus 3.1, Total Bilirubin 0.90, Direct Bilirubin 0.29, AST 39 H, ALT 22, Alkaline Phosphatase 162 H, Total Protein 6.5, Albumin 2.4 L, Globulin 4.1 11/18/22 05:54: PTH Intact 130.1 H ABG Data ABG results: ABG 11/17/22 18:07 Specimen Type ART Sample Site L Radial pH 7.41 Bicarbonate Actual 34.7 H Total CO2 36 Base Excess 10 H O2 Saturation 94 L ABG pCO2 54.3 H ABG pO2 72 L Jatinder Test Positive O2 Delivery Device Cannula Liter Flow 7.[address] 11/17/22 15:50 IMPRESSION: Right perirolandic edema or encephalomalacia. MRI with and without contrast would be helpful if clinically warranted. Electronically Signed: Tolu Poole MD at 18:47 EDT , Documented by User: Dr. Tiara Dinero MD 11/18/22 15:25 Assessment & Plan Assessment/Plan (1) Hypercalcemia: (2) Lung nodule: (3) Heart failure with preserved ejection fraction: PLAN: Plan This is an 87-year-old male with past medical history significant for colon cancer status post colectomy, A-fib status post cardioversion, chronic diastolic heart failure, history of COPD, former tobacco use, history of iron deficiency anemia, hypertension, coronary disease status post coronary bypass graft surgery x3, mitral valve repair, history of recently found lung nodule (was seen by Dr. Manning in September, to have PET scan but not done yet) who was admitted to the hospital for debility and decompensated heart failure. Nephrology consulted for hypercalcemia. Patient noted to have elevated calcium levels since September 2022. Before that calcium levels were normal. Per patient report no recent Tums or calcium supplements at home. Reviewed patient's home medication list. Patient is not bedridden. IV Lasix was stopped and patient started on IV fluids. He was also given calcitonin and Sensipar 30 mg daily. Today calcium level has slightly improved from 11.1-10.6. On October 01, 2022 calcium was 10.5. PTH was 209, today 130. Vitamin D 25-hydroxy 25.0. We will also check serum and urine immunofixation. Apparently patient recently found to have lung nodule but no further work-up has been done. We will continue on gentle IV fluids for another day. Patient is tolerating Sensipar. Further orders forthcoming as hospitalization evolves, thank you for allowing us to participate in the care of Mr. Chawla. Agree with above. Hypercalcemia and associated elevation in PTH. For now we will treat as hyperparathyroidism. Of note he had a CT abdomen on 11/11/2022 the upper abdomen showed a 12 cm lung mass in the left lower lobe. Images personally reviewed and confirmed this. He also has extensive lymphadenopathy. I am not sure if there is any component of malignancy related hypercalcemia. Discussed with hospitalist. Apparently patient is aware of this finding and he did not want to pursue further work-up on this. For now we will treat with Sensipar 30 mg once a day, increase dose as tolerated in office. HPI Consult Data Date of Consult: 11/18/22 [facility] Medical History Abnormality of gait Acid reflux Allergic rhinitis Anemia Anemia requiring transfusions Atherosclerosis of coronary artery of [place] heart without angina pectoris Atrial fibrillation with rapid ventricular response Blood clots in stool Cancer Carotid artery disease Colon cancer COPD (chronic obstructive pulmonary disease) Essential hypertension Former smoker GERD (gastroesophageal reflux disease) GI bleed (04/25/21) Hyperbilirubinemia Hyperlipidemia Hypothyroidism (acquired) Iron deficiency anemia Nonrheumatic mitral (valve) insufficiency Nonsustained paroxysmal supraventricular tachycardia Obesity Paroxysmal atrial fibrillation Personal history of colonic polyps Prostatic hypertrophy Pulmonary embolism Respiratory failure Urinary retention Home Medications atorvastatin 80 mg tablet (Lipitor) 80 mg PO DAILY CHOLESTEROL 07/14/17 [History Last Taken 11/10/22] ascorbic acid (vitamin C) 500 mg tablet 1,000 mg PO BID SUPPLEMENT 02/15/20 [History Last Taken 11/10/22] levothyroxine 125 mcg tablet 125 mcg PO DAILY THYROID 04/25/21 [History Last Taken 11/10/22] furosemide 40 mg tablet 40 mg PO DAILY FLUID 10/01/22 [History Last Taken 04/24] metoprolol succinate 100 mg tablet,extended release 24 hr 100 mg PO DAILY BLOOD PRESSURE 10/01/22 [History Last Taken 11/10/22] omega-3 fatty acids 500 mg capsule 500 mg PO DAILY SUPPLEMENT 10/01/22 [History Last Taken 11/10/22] potassium chloride 20 mEq tablet,extended release 20 meq PO DAILY SUPPLEMENT 10/01/22 [History Last Taken 11/10/22] albuterol sulfate 90 mcg/actuation aerosol inhaler 1 puff inhalation Q6H PRN shortness of breath or wheezing #8.5 grams 10/03/22 [Rx Last Taken 11/10/22] warfarin 5 mg tablet (Jantoven) 5 mg PO SuMoWeThFrSa@1700 #30 tabs 10/03/22 [Rx Last Taken 11/10/22] warfarin 7.5 mg tablet (Jantoven) 7.5 mg PO Tu@1700 #0 tabs 10/03/22 [Rx Last Taken 11/10/22] metolazone 2.5 mg tablet See Rx Instructions PO Q OTHER DAY 10/18/22 [History Last Taken 11/10/22] Allergy/AdvReac Type Severity Reaction Status Date / Time adhesive tape Allergy Intermediate dermatitis Verified 11/11/22 08:47 Family History Father , of pneumonia Pneumonia Mother , of CAD CAD (coronary artery disease) Arthritis Sister , Cause unknown Rheumatoid arthritis Oral cancer Sister Arthritis Sister No problems noted. Sister No problems noted. Surgical History H/O coronary artery bypass surgery (12/25/18) History of bladder surgery History of cardioversion (05/31/19) History of colectomy History of colonoscopy (09/30/17) History of esophagogastroduodenoscopy (EGD) (~04/2021) History of mitral valve repair (12/25/18) History of transurethral resection of prostate Status post mitral valve repair (12/25/18) Social History household members: spouse Smoking Status: Former smoker quit date: 06/04/96 pack-years: 40 how long ago did patient quit smokin years ago alcohol intake: never substance use type: does not use caffeine: Yes Type: coffee Number of servings: 2 Lab / Micro Data Result Diagrams: 11/17/22 06:00 11/18/22 05:54
--- NOTE | 2022-11-18 09:23 | PCM.PN.HOSP ---
Reason for Visit Reason for Visit: Diagnoses Hypercalcemia (11/11/22) Encephalopathy, unspecified (11/11/22) Chronic atrial fibrillation, unspecified (11/11/22) Unspecified diastolic (congestive) heart failure (11/11/22) Acute respiratory failure with hypercapnia (11/11/22) Dorsalgia, unspecified (11/11/22) Other malaise (11/11/22) Solitary pulmonary nodule (11/11/22) Dependent relative needing care at home (11/11/22) Subjective Subjective Reports continued lower back pain primarily only when he is moving around, does feel better after taking some pain medication, breathing waxes and wanes. Objective Data Objective Data Vital Signs: Vital Signs Temp Pulse Resp BP Pulse Ox O2 Del Method O2 Flow Rate 97 F L 95 18 115/89 H 95 High Flow 2 11/18/22 03:45 11/18/22 03:45 11/18/22 03:45 11/18/22 03:45 11/18/22 08:13 11/18/22 08:13 11/18/22 08:13 FiO2 50 11/17/22 13:33 Oxygen Flow Rate (L/min) 2 Oxygen Delivery Method High Flow Weight: 102.1 kg Body Mass Index (BMI) 30.5 Intake & Output: Intake and Output for Last 24 Hours 11/16/22 11/17/22 11/18/22 23:59 23:59 23:59 Intake Total 390 / 390 410 / 410 935 / 935 Output Total 2350 / 2350 650 / 1100 750 / 750 Balance -1960 / -1960 -240 / -690 185 / 185 Lab / Micro Data Result Diagrams: 11/17/22 06:00 11/18/22 05:54 Labs: Laboratory Results - last 24 hr 11/18/22 05:54: PT 31.5 H, INR 3.0 11/18/22 05:54: Sodium 141, Potassium 4.5, Chloride 104, Carbon Dioxide 33.0 H, Anion Gap 4 L, BUN 51 H, Creatinine 1.19, Estim Creat Clear Calc 48.00, Est GFR (MDRD) Af Amer 74, Est GFR (MDRD) Non-Af 61, BUN/Creatinine Ratio 42.9 H, Glucose 101, Calcium 10.6 H, Phosphorus 3.1, Total Bilirubin 0.90, Direct Bilirubin 0.29, AST 39 H, ALT 22, Alkaline Phosphatase 162 H, Total Protein 6.5, Albumin 2.4 L, Globulin 4.1 11/18/22 05:54: PTH Intact 130.1 H ABG Data ABG results: ABG 11/17/22 18:07 Specimen Type ART Sample Site L Radial pH 7.41 Bicarbonate Actual 34.7 H Total CO2 36 Base Excess 10 H O2 Saturation 94 L ABG pCO2 54.3 H ABG pO2 72 L Jatinder Test Positive O2 Delivery Device Cannula Liter Flow 7.0 Radiography Diagnostic Testing: Radiology Impression Brain CT 11/17/22 15:50 IMPRESSION: Right perirolandic edema or encephalomalacia. MRI with and without contrast would be helpful if clinically warranted. Electronically Signed: Tolu Poole MD at 18:47 EDT , Physical Exam Narrative General: Alert, resting comfortably in bed HEENT: Atraumatic, normocephalic Eyes: Anicteric, normal conjunctiva, extraocular movements grossly intact Neck: Supple Respiratory: Somewhat diminished at the bases, slight increased respiratory effort Cardiovascular: Slightly tachycardic and irregular GI: Soft, nontender, nondistended Extremities: Slight lower extremity edema Musculoskeletal: Moving all extremities in bed Neuro: No overt focal neurological deficits Skin: No rashes appreciated Psych: Cooperative Assessment & Plan Assessment/Plan (1) Hypercalcemia: (2) Lung nodule: (3) Heart failure with preserved ejection fraction: PLAN: Plan #Acute exacerbation of heart failure with preserved ejection fraction with acute hypercapnic respiratory failure -Chest x-ray with pulmonary vascular congestion and initial VBG and ABG with elevated PCO2 -Required BiPAP -On IV Lasix twice daily -Daily weights, I's and O's -11/18: Echo 11/11 with EF of 65% and diastolic dysfunction. 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 -25 oh D 25, therefore, no vitamin D toxicity -PTH 209 -Given frailty, pt is a poor candidate for parathyroidectomy. Pt does have osteoporotic fracture involving spine -11/17 calcium is 11.0.? Patient on IV Lasix.? Discontinue all diuretic.? IV fluid Ringer lactate 75 mill per hour.? Discussed with the fare collector.? Calcitriol 2 mcg IV x1 dose.? Started on Sensipar 30 mg once daily first dose now.? Monitor calcium, phosphorus, PTH, alkaline phosphatase.? Vitamin D level 25, therefore vitamin D replacement is started.? Nephrology consult requested -11/18: Nephrology following, continue to monitor calcium, continuing gentle fluids. Will need discharged on Sensipar 30 mg and follow-up with nephrology #Solitary pulmonary nodule -With some additional mediastinal lymphadenopathy -Dementia increased over the past month -Recently saw Dr. Manning October 17 and has yet to have PET scan done -Pulm consult canceled as patient did not wish to see Dr. Manning further and does not want additional work-up even if there is cancer #Chronic A-fib with RVR -Continue Coumadin, did have supratherapeutic INR and this was held and is since been resumed, continue to monitor INR -Metoprolol adjusted to metoprolol tartrate 75 mg twice daily #Generalized weakness and debility/lower back pain -PT/OT -We will schedule Tylenol -Had recent CT with L4 without slight volume loss but no other abnormalities #Acute metabolic encephalopathy -Secondary to hypercapnia -Improved 11/17 #History of colon cancer status post colectomy -Supportive care #Hypothyroidism -Continue Synthroid #Coronary artery disease status post CABG -Continue atorvastatin #DVT ppx: On Coumadin Batool Pacheco MD Time spent in the patient's overall evaluation,decision-making process, review of diagnostic data, adjustment of management, discussion with other providers, nursing nursing and ancillary staff involved in patient's care documentation, 37 Minutes Charges/Coding Visit Charges Inpatient E&M: 87413 Subs Hosp L3
--- NOTE | 2022-11-18 10:04 | CASEMGMT ---
Discharge Planning Updates sent to [facility] via [facility]. Eliana Dye, Discharge Planning Asst.
[2022-11-18] MEDS: Metoprolol Tartrate 50 MG Tablet 75 MG PO ×2 (10:15→20:49)
[2022-11-18] MEDS: 0.9% Saline Lock 10 ML Syringe IV ×2 (10:15→20:49)
[2022-11-18] MEDS: Atorvastatin Calcium 80 MG Tablet PO (10:16)
[2022-11-18] MEDS: Cinacalcet HCl 30 MG Tablet PO (10:17)
[2022-11-18] MEDS: Cholecalciferol (Vit D3) 125 MCG CAPSULE (5,000 UNITS) PO (10:17)
[2022-11-18] MEDS: Ascorbic Acid 500 MG Tablet 1000 MG PO ×2 (10:17→20:51)
[2022-11-18] MEDS: Potassium Chloride Oral Tablet 20 MEQ PO (10:17)
[2022-11-18] MEDS: 0.9% Normal Saline 1,000 ML 50 ML IV (10:28)
[2022-11-18] MEDS: Acetaminophen 500 MG Tablet 1000 MG PO ×2 (10:33→17:43)
--- NOTE | 2022-11-18 12:40 | RAD_ITS ---
STUDY: X-RAY CHEST REASON FOR EXAM: Male, 87 years old. Increased WOB TECHNIQUE: PA and lateral views of the chest. COMPARISON: November 13, 2022. CT of the chest dated October 01, 2022 FINDINGS: 1. Small hyperaerated lungs with cystic emphysematous changes. 2. Unresolved moderate to severe consolidation of the left lower lobes, which is known to be related to interstitial fibrosis as better visualized on the CT of the chest dated October 01, 2022. 3. Bilateral hilar and lower lobe density is related to known large bulky left hilar and posterior mediastinal lymph nodes 4. Small bilateral pleural effusions are present. 5. Normal heart size. Stable CABG clips 6. Persistent widened mediastinum 7. Stable osseous structures. There is no demonstrated abnormality of the visualized soft tissue structures of the upper abdomen. 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
[2022-11-18] MEDS: MELATONIN 3 MG TABLET PO (21:03)
[2022-11-18] MEDS: Menthol/Lanolin/Calamine/Znox 113 GM Tube 1 APPLIC TOPICAL (22:52)
[2022-11-19] VITALS (30 sets, daily range): BP systolic 85–133; BP diastolic 54–80; PULSE 85–121; RESP 14–26; TEMP 36.1–36.8; O2SAT 92–98; BMI 30.4
--- NOTE | 2022-11-19 01:48 | CPS ---
Patient ripping off Bipap mask
--- NOTE | 2022-11-19 01:50 | CPS ---
RN placed patient on HFNC 8L, Patient took off bipap
[2022-11-19 06:11] LABS: Absolute Lymphocyte Count 0.54 X10^3/uL (0.83-4.51); Absolute Neutrophil Count 9.3 X10^3/uL (2.0-7.7); Basophil# 0.04 X10^3/uL; Basophil% 0.4 % (0-1); Eosinophil# 0.13 X10^3/uL; Eosinophils% 1.2 % (0-5); Hematocrit 41.1 % (40-54); Hemoglobin 12.5 g/dL (13.0-16.5); Lymphocyte # 0.54 X10^3/ul (0.83-4.51); Mean Corp Hgb Conc 30.4 g/dL (32-36); Mean Corpuscular Hgb 27.9 pg (27.0-32.0); Mean Corpuscular Volume 91.7 fL (80-94); Mean Platelet Vol. 11.5 fl (6.2-12.0); Monocyte% 6.5 % (0-10); NRBC Flagged by Analyzer 0 % (0-5); Neutrophil # 9.28 X10^3/uL (2.7-7.7); POSITIVE DIFFERENTIAL YES; Platelet Count 163 K/mm3 (150-450); RBC Distribution Width CV 15.9 % (11.6-14.6); RBC Distribution Width SD 53.3 fl (35.1-43.9); Red Blood Count 4.48 M/mm3 (4.6-6.2); White Blood Count 10.8 K/mm3 (4.4-11.0)
[2022-11-19 06:16] LABS: Differential Indicated SCAN CRITERIA MET
[2022-11-19 06:32] LABS: Differential Comment SCANNED
[2022-11-19] MEDS: Menthol/Lanolin/Calamine/Znox 113 GM Tube 1 APPLIC TOPICAL ×3 (06:34→21:18)
[2022-11-19 06:52] LABS: ALB/GLOB Ratio 0.6 RATIO (0.9-2.4); AST(SGOT) 46 U/L (15-37); Alanine Aminotransfer ALT/SGPT 25 U/L (16-61); Albumin, Serum 2.5 g/dL (3.2-5.0); Alkaline Phosphatase 168 U/L (45-117); Anion Gap 1 (5-15); BUN 48 mg/dL (7-18); BUN/Creat Ratio 46.2 RATIO (10-20); Calcium,Total 10.6 mg/dL (8.5-10.1); Chloride 107 mmol/L (98-107); Creatinine, Serum 1.04 mg/dL (0.70-1.30); EST Glomerular Filtration Rate 72 mL/min (>60); Est Glom Filt Rate - Afr Amer 87 mL/min (>60); Estimated Creatinine Clearance 54.93 ml/min; Glucose 97 mg/dL (74-106); Magnesium 2.2 mg/dL (1.6-2.6); Potassium 4.6 mmol/L (3.5-5.1); Protein, Total 6.5 g/dL (6.4-8.2); Sodium Level 143 mmol/L (136-145); T4 Free Direct 1.79 ng/dL (0.76-1.46)
[2022-11-19] MEDS: Atorvastatin Calcium 80 MG Tablet PO (08:10)
[2022-11-19] MEDS: Metoprolol Tartrate 50 MG Tablet 75 MG PO ×2 (08:10→21:17)
[2022-11-19] MEDS: Cinacalcet HCl 30 MG Tablet PO (08:10)
[2022-11-19] MEDS: Potassium Chloride Oral Tablet 20 MEQ PO (08:10)
[2022-11-19] MEDS: Ascorbic Acid 500 MG Tablet 1000 MG PO ×2 (08:11→21:19)
[2022-11-19] MEDS: Acetaminophen 500 MG Tablet 1000 MG PO ×2 (08:12→17:48)
[2022-11-19] MEDS: Cholecalciferol (Vit D3) 125 MCG CAPSULE (5,000 UNITS) PO (08:12)
[2022-11-19 09:46] LABS: International Normalized Ratio 4.4; Prothrombin Time (Protime)PT. 43.1 SECONDS (11.7-14.9)
[2022-11-19 10:28] LABS: Allen Test Positive; Base Excess 9 mmol/L (-2 to +2); Bicarbonate 34.4 mmol/L (22-26); Blood Gas Specimen Type ART; O2 Delivery Device Cannula; PO2 61 mmHG (75-100); SITE L Radial; SO2 89 % (95-99); Total Carbon Dioxide 36 mmol/L; pCO2 60.6 mmHg (35-45); pH 7.36 (7.35-7.45)
[2022-11-19 10:34] LABS: BNP,B-Type NATRIURETIC PEPTIDE 174.1 pg/mL (0-100)
--- NOTE | 2022-11-19 11:26 | PCM.PN.REN ---
Documented by User: JOSÉ MANUEL Mclain 11/19/22 11:32 Subjective Subjective Resting in bed. Had some shortness of breath, IV fluids stopped and received dose of Lasix. Patient reports breathing improved. Objective Data Objective Data Vital Signs: Vital Signs Temp Pulse Resp BP Pulse Ox O2 Del Method O2 Flow Rate 98.0 F 115 H 20 H 115/68 93 Bi-pap 10 11/19/22 07:00 11/19/22 10:30 11/19/22 10:30 11/19/22 08:10 11/19/22 10:30 11/19/22 07:18 11/19/22 01:00 FiO2 45 11/19/22 10:30 Oxygen Flow Rate (L/min) 10 Oxygen Delivery Method Bi-pap Weight: 101.8 kg Body Mass Index (BMI) 30.4 Intake & Output: Intake and Output for Last 24 Hours 11/17/22 11/18/22 11/19/22 23:59 23:59 23:59 Intake Total 410 / 410 2037.08 / 2157.08 120 / 120 Output Total 650 / 1100 1150 / 1550 550 / 550 Balance -240 / -690 887.08 / 607.08 -430 / -430 Lab / Micro Data Result Diagrams: 11/20/22 06:16 11/20/22 06:16 Labs: Laboratory Results - last 24 hr 11/19/22 05:50: WBC 10.8, RBC 4.48 L, Hgb 12.5 L, Hct 41.1, MCV 91.7, MCH 27.9, MCHC 30.4 L, RDW Std Deviation 53.3 H, RDW Coeff of Marcelino 15.9 H, Plt Count 163, MPV 11.5, Immature Gran % (Auto) 0.900, Neut % (Auto) 86.0 H, Lymph % (Auto) 5.0 L, [place] % (Auto) 6.5, Eos % (Auto) 1.2, Baso % (Auto) 0.4, Absolute Neuts (auto) 9.3 H, Absolute Lymphs (auto) 0.54 L, Nucleated RBC % 0, Differential Comment SCANNED 11/19/22 05:50: Sodium 143, Potassium 4.6, Chloride 107, Carbon Dioxide 35.0 H, Anion Gap 1 L, BUN 48 H, Creatinine 1.04, Estim Creat Clear Calc 54.93, Est GFR (MDRD) Af Amer 87, Est GFR (MDRD) Non-Af 72, BUN/Creatinine Ratio 46.2 H, Glucose 97, Calcium 10.6 H, Magnesium 2.2, Total Bilirubin 0.60, AST 46 H, ALT 25, Alkaline Phosphatase 168 H, Total Protein 6.5, Albumin 2.5 L, Globulin 4.0, Albumin/Globulin Ratio 0.6 L, TSH 3.50, Free T4 1.79 H 11/19/22 05:50: PT 43.1 H, INR 4.4 H* 11/19/22 05:50: B-Natriuretic Peptide 174.1 H ABG Data ABG results: ABG 11/19/22 10:25 Specimen Type ART Sample Site L Radial pH 7.36 Bicarbonate Actual 34.4 H Total CO2 36 Base Excess 9 H O2 Saturation 89 L ABG pCO2 60.6 H ABG pO2 61 L Jatinder Test Positive O2 Delivery Device Cannula Liter Flow 10.0 Radiography Diagnostic Testing: Radiology Impression Chest X-Ray 11/18/22 12:40 IMPRESSION: 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 S1, S2, RRR Abdomen soft, nontender, positive bowel sounds No pitting edema Assessment & Plan Assessment/Plan (1) Hypercalcemia: (2) Lung nodule: (3) Heart failure with preserved ejection fraction: PLAN: Plan This is an 87-year-old male with past medical history significant for colon cancer status post colectomy, A-fib status post cardioversion, chronic diastolic heart failure, history of COPD, former tobacco use, history of iron deficiency anemia, hypertension, coronary disease status post coronary bypass graft surgery x3, mitral valve repair, history of recently found lung nodule (was seen by Dr. Manning in September, to have PET scan but not done yet) who was admitted to the hospital for debility and decompensated heart failure. Nephrology consulted for hypercalcemia. Patient noted to have elevated calcium levels September 2022. Before that calcium levels were normal. Patient was started on IV fluids but stopped this morning due to shortness of breath. Patient did receive one-time dose of IV Lasix this morning. - Calcium level peaked at 11.1, calcium 10.6 yesterday and again today. On October 01, 2022 calcium was 10.5. PTH was 209-->130. Vitamin D 25-hydroxy 25.0. Patient had CT abdomen on November 11 which showed 12 cm lung mass in left lower lobe, extensive lymphadenopathy, not sure if there is any component of malignancy related hypercalcemia. -Hypercalcemia and associated elevation in PTH. For now we will treat as hyperparathyroidism. Patient is tolerating Sensipar; to take with food. Continue Sensipar 30 mg daily, will follow-up in office and increase dose if needed. Documented by User: Dr. Tiara Dinero MD 11/20/22 13:46 Objective Data Lab / Micro Data Result Diagrams: 11/20/22 06:16 11/20/22 06:16 Assessment & Plan Assessment/Plan (1) Hypercalcemia: (2) Lung nodule: (3) Heart failure with preserved ejection fraction: PLAN: Plan This is an 87-year-old male with past medical history significant for colon cancer status post colectomy, A-fib status post cardioversion, chronic diastolic heart failure, history of COPD, former tobacco use, history of iron deficiency anemia, hypertension, coronary disease status post coronary bypass graft surgery x3, mitral valve repair, history of recently found lung nodule (was seen by Dr. Manning in September, to have PET scan but not done yet) who was admitted to the hospital for debility and decompensated heart failure. Nephrology consulted for hypercalcemia. Patient noted to have elevated calcium levels September 2022. Before that calcium levels were normal. Patient was started on IV fluids but stopped this morning due to shortness of breath. Patient did receive one-time dose of IV Lasix this morning. - Calcium level peaked at 11.1, calcium 10.6 yesterday and again today. On October 01, 2022 calcium was 10.5. PTH was 209-->130. Vitamin D 25-hydroxy 25.0. Patient had CT abdomen on November 11 which showed 12 cm lung mass in left lower lobe, extensive lymphadenopathy, not sure if there is any component of malignancy related hypercalcemia. -Hypercalcemia and associated elevation in PTH. For now we will treat as hyperparathyroidism. Patient is tolerating Sensipar; to take with food. Continue Sensipar 30 mg daily, will follow-up in office and increase dose if needed. AGREE WITH ABOVE. POSSIBLE HOSPICE
[2022-11-19] MEDS: Furosemide 40 MG/4 ML Vial IV (11:43)
--- NOTE | 2022-11-19 14:18 | PCM.PN.HOSP ---
Reason for Visit Reason for Visit: Diagnoses Hypercalcemia (11/11/22) Encephalopathy, unspecified (11/11/22) Chronic atrial fibrillation, unspecified (11/11/22) Unspecified diastolic (congestive) heart failure (11/11/22) Acute respiratory failure with hypercapnia (11/11/22) Dorsalgia, unspecified (11/11/22) Other malaise (11/11/22) Solitary pulmonary nodule (11/11/22) Dependent relative needing care at home (11/11/22) Subjective Subjective Patient lacks and waning with both mental status and respiratory status today. Does not voice specific complaints but required high flow and BiPAP to maintain sats [place] yesterday regarding present state, treatment plan. Spoke with patient's today over the phone with updates and discussed how patient is doing at present as well as options moving forward and concern for prognosis including concerned that there could be an underlying cancer. She verbalized her understanding but does not want to opt for hospice at this time and would like to continue present management. We will continue discussion as the patient does not improve or continues to worsen may benefit most from hospice however we will continue management and care as detailed below at this time Objective Data Objective Data Vital Signs: Vital Signs Temp Pulse Resp BP Pulse Ox O2 Del Method O2 Flow Rate 98.0 F 97 24 H 115/68 95 Bi-pap 10 11/19/22 07:00 11/19/22 11:58 11/19/22 11:58 11/19/22 08:10 11/19/22 11:58 11/19/22 08:00 11/19/22 01:00 FiO2 40 11/19/22 11:58 Oxygen Flow Rate (L/min) 10 Oxygen Delivery Method Bi-pap Weight: 101.8 kg Body Mass Index (BMI) 30.4 Intake & Output: Intake and Output for Last 24 Hours 11/17/22 11/18/22 11/19/22 23:59 23:59 23:59 Intake Total 410 / 410 2037.08 / 2157.08 120 / 120 Output Total 650 / 1100 1150 / 1550 550 / 550 Balance -240 / -690 887.08 / 607.08 -430 / -430 Lab / Micro Data Result Diagrams: 11/19/22 05:50 11/19/22 05:50 Labs: Laboratory Results - last 24 hr 11/19/22 05:50: WBC 10.8, RBC 4.48 L, Hgb 12.5 L, Hct 41.1, MCV 91.7, MCH 27.9, MCHC 30.4 L, RDW Std Deviation 53.3 H, RDW Coeff of Marcelino 15.9 H, Plt Count 163, MPV 11.5, Immature Gran % (Auto) 0.900, Neut % (Auto) 86.0 H, Lymph % (Auto) 5.0 L, [place] % (Auto) 6.5, Eos % (Auto) 1.2, Baso % (Auto) 0.4, Absolute Neuts (auto) 9.3 H, Absolute Lymphs (auto) 0.54 L, Nucleated RBC % 0, Differential Comment SCANNED 11/19/22 05:50: Sodium 143, Potassium 4.6, Chloride 107, Carbon Dioxide 35.0 H, Anion Gap 1 L, BUN 48 H, Creatinine 1.04, Estim Creat Clear Calc 54.93, Est GFR (MDRD) Af Amer 87, Est GFR (MDRD) Non-Af 72, BUN/Creatinine Ratio 46.2 H, Glucose 97, Calcium 10.6 H, Magnesium 2.2, Total Bilirubin 0.60, AST 46 H, ALT 25, Alkaline Phosphatase 168 H, Total Protein 6.5, Albumin 2.5 L, Globulin 4.0, Albumin/Globulin Ratio 0.6 L, TSH 3.50, Free T4 1.79 H 11/19/22 05:50: PT 43.1 H, INR 4.4 H* 11/19/22 05:50: B-Natriuretic Peptide 174.1 H ABG Data ABG results: ABG 11/19/22 10:25 Specimen Type ART Sample Site L Radial pH 7.36 Bicarbonate Actual 34.4 H Total CO2 36 Base Excess 9 H O2 Saturation 89 L ABG pCO2 60.6 H ABG pO2 61 L Jatinder Test Positive O2 Delivery Device Cannula Liter Flow 10.0 Physical Exam Narrative General: Waxing and waning levels of alertness HEENT: Atraumatic, normocephalic Eyes: Anicteric, normal conjunctiva, extraocular movements grossly intact, patient with difficulty following commands with his delirium so did not track completely [id number] but did not appear to have any palsies or irregularities in pupils Neck: Supple Respiratory: Diminished throughout, slight increased respiratory effort Cardiovascular: Irregularly irregular GI: Soft, nontender, nondistended Extremities: Slight lower extremity edema Musculoskeletal: Moving all extremities in bed Neuro: No overt focal neurological deficits, following commands and moves all extremities Skin: No rashes appreciated Psych: Attempts to be cooperative Assessment & Plan Assessment/Plan (1) Hypercalcemia: (2) Lung nodule: (3) Heart failure with preserved ejection fraction: PLAN: Plan #Acute exacerbation of heart failure with preserved ejection fraction with acute hypoxic hypercapnic respiratory failure -Chest x-ray with pulmonary vascular congestion and initial VBG and ABG with elevated PCO2 -Required BiPAP -On IV Lasix twice daily -Daily weights, I's and O's -11/18: Echo 11/11 with EF of 65% and diastolic dysfunction. Due to hypercalcemia diuretics discontinued and he was started on fluids, will check repeat chest x-ray seems to be slight increased work of breathing -11/19: Fluids have been discontinued, given signs of overload and increasing respiratory requirements patient was given dose of Lasix which was helpful to some extent though still has intermittent need for BiPAP so second dose of 20 IV given. ABG obtained before Lasix on high flow with pH of 7.36, PCO2 of 60.6 and PO2 61 after which he was given the Lasix and placed on BiPAP. Will start nebs given his history of COPD as he seems to have diminished airflow in addition to his fluid overload and respiratory status may be contributed to by COPD, will also try giving steroids due to his significant diminished airflow. He did not have previous PFTs but had been labeled COPD with long smoking history and had not followed up for the PFTs so unclear true underlying diagnosis or severity. Additionally will get COVID, flu, respiratory panels and Pro-Krishna, lactic acid, repeat CMP #Hypercalcemia- -Suspect due to primary hyperparathyroidism versus malignancy -Correct for albumin, Ca is 11.7. -25 oh D 25, therefore, no vitamin D toxicity -PTH 209 -Given frailty, pt is a poor candidate for parathyroidectomy. Pt does have osteoporotic fracture involving spine -11/17 calcium is 11.0.? Patient on IV Lasix.? Discontinue all diuretic.? IV fluid Ringer lactate 75 mill per hour.? Discussed with the help desk associate.? Calcitriol 2 mcg IV x1 dose.? Started on Sensipar 30 mg once daily first dose now.? Monitor calcium, phosphorus, PTH, alkaline phosphatase.? Vitamin D level 25, therefore vitamin D replacement is started.? Nephrology consult requested -11/18: Nephrology following, continue to monitor calcium, continuing gentle fluids. Will need discharged on Sensipar 30 mg and follow-up with nephrology -11/19: Calcium 10.6 today as well, may have component of malignancy given lung mass but patient had denied wanting any further work-up as he would not want any treatment. Unable to give further fluids due to his overload #Solitary pulmonary nodule -With some additional mediastinal lymphadenopathy -Dementia increased over the past month -Recently saw Dr. Manning October 17 and has yet to have PET scan done -Pulm consult canceled as patient did not wish to see Dr. Manning further and does not want additional work-up even if there is cancer #Chronic A-fib with RVR -Continue Coumadin, did have supratherapeutic INR and this was held and is since been resumed, continue to monitor INR -Metoprolol adjusted to metoprolol tartrate 75 mg twice daily -11/19: INR supratherapeutic, holding Coumadin today. No signs or symptoms that would indicate INR requires reversal #Generalized weakness and debility/lower back pain -PT/OT -We will schedule Tylenol -Had recent CT with L4 without slight volume loss but no other abnormalities #Acute metabolic encephalopathy -Secondary to hypercapnia -Improved 11/17 -11/19: Reportedly had been improving but worsened again today with worsened hypoxia and hypercapnia, was placed on BiPAP and given Lasix, starting nebs. Has additional background waxing and waning likely due to delirium from being in the hospital and having underlying illness. We will also repeat UA however to verify no underlying urinary tract infection and perform postvoid residual to verify no urinary retention. Had CT head 2 days ago which queried some edema versus encephalomalacia and recommended MRI however patient has not been stable enough from a respiratory or mental status standpoint to lay flat for MRI and presently would not tolerate repeat CT. Patient moving all extremities the same and no overt focal deficits, his confusion is primarily waxing and waning. Will be given steroids for his breathing however which would help with any elevated intracranial pressure if applicable, will need brain MRI or repeat CT once stable unless patient and family opt for hospice. #History of colon cancer status post colectomy -Supportive care #Hypothyroidism -Continue Synthroid #Coronary artery disease status post CABG -Continue atorvastatin #DVT ppx: INR therapeutic Batool Pacheco MD Time spent in the patient's overall evaluation,decision-making process, review of diagnostic data, adjustment of management, discussion with other providers, nursing nursing and ancillary staff involved in patient's care documentation, 37 Minutes Charges/Coding Visit Charges Inpatient E&M: 99686 [facility] Hosp L3
[2022-11-19] MEDS: 0.9% Saline Lock 10 ML Syringe IV ×3 (15:33→22:26)
[2022-11-19] MEDS: Furosemide 20 MG/2 ML VIAL IV (15:33)
[2022-11-19 16:27] LABS: ALB/GLOB Ratio 0.6 RATIO (0.9-2.4); AST(SGOT) 42 U/L (15-37); Alanine Aminotransfer ALT/SGPT 26 U/L (16-61); Albumin, Serum 2.5 g/dL (3.2-5.0); Alkaline Phosphatase 168 U/L (45-117); Anion Gap 1 (5-15); BUN 51 mg/dL (7-18); BUN/Creat Ratio 43.2 RATIO (10-20); Calcium,Total 10.4 mg/dL (8.5-10.1); Chloride 106 mmol/L (98-107); Creatinine, Serum 1.18 mg/dL (0.70-1.30); EST Glomerular Filtration Rate 62 mL/min (>60); Est Glom Filt Rate - Afr Amer 75 mL/min (>60); Estimated Creatinine Clearance 48.41 ml/min; Globulin 3.9 g/dL (2.2-4.2); Glucose 119 mg/dL (74-106); Potassium 4.7 mmol/L (3.5-5.1); Protein, Total 6.4 g/dL (6.4-8.2); Sodium Level 143 mmol/L (136-145)
[2022-11-19 16:33] LABS: Lactic Acid 1.5 mmol/L (0.4-1.9)
[2022-11-19 16:37] LABS: Procalcitonin 1.13 ng/mL (0.00-0.09)
[2022-11-19] MEDS: Methylprednisolone Sod Succ 40 MG/ML VIAL IV ×2 (17:45→22:26)
[2022-11-19 18:22] LABS: Mucous, Urine 0 SEEN /hpf (<or=2+); Red Blood Cells-Urine 0 SEEN /hpf (0-5); Squamous Epithelial Cells - UA 0 SEEN /hpf (0-5)
[2022-11-19 18:34] LABS: Color, Urine Yellow (Yellow); Glucose, Dipstick Normal (Normal); Ketone-Dipstick Negative (Negative); Leukocyte Esterase-Dipstick 500 /ul (Negative); Nitrite-Dipstick Positive (Negative); Occult Blood-Urine 10 /ul (Negative); Protein-Dipstick 15 mg/dl (Negative); Urine Bilirubin Dipstick Negative (Negative); Urine Clarity Clear (Clear); Urine Urobilinogen Normal (Normal)
[2022-11-19 19:00] LABS: Bacteria 1+ /hpf (None Seen); Calcium Oxalate Crystals Ur 1+ /hpf (<or=2+); White Blood Cells 5-10 SEEN /hpf (0-5)
[2022-11-19] MEDS: Ipratropium/Albuterol Sulfate 3 ML AMPUL.NEB INHALATION (19:49)
[2022-11-19] MEDS: MELATONIN 3 MG TABLET PO (21:18)
[2022-11-20] VITALS (9 sets, daily range): BP systolic 109–130; BP diastolic 51–93; PULSE 94–131; RESP 20–22; TEMP 36.2–36.5; O2SAT 92–98; BMI 30.1
[2022-11-20] MEDS: Acetaminophen 500 MG Tablet 1000 MG PO ×2 (01:56→11:02)
[2022-11-20] MEDS: Levothyroxine 125 MCG Tablet PO (05:31)
[2022-11-20] MEDS: Menthol/Lanolin/Calamine/Znox 113 GM Tube 1 APPLIC TOPICAL ×2 (05:31→16:05)
[2022-11-20] MEDS: Methylprednisolone Sod Succ 40 MG/ML VIAL IV (05:32)
[2022-11-20 06:46] LABS: Absolute Lymphocyte Count 0.31 X10^3/uL (0.83-4.51); Absolute Neutrophil Count 9.5 X10^3/uL (2.0-7.7); Basophil# 0.02 X10^3/uL; Basophil% 0.2 % (0-1); Hematocrit 41.8 % (40-54); Hemoglobin 12.4 g/dL (13.0-16.5); Lymphocyte # 0.31 X10^3/ul (0.83-4.51); Lymphocyte % 3.1 % (19-41); Mean Corp Hgb Conc 29.7 g/dL (32-36); Mean Corpuscular Hgb 27.3 pg (27.0-32.0); Mean Corpuscular Volume 92.1 fL (80-94); Mean Platelet Vol. 12.4 fl (6.2-12.0); Monocyte# 0.16 X10^3/uL; Monocyte% 1.6 % (0-10); NRBC Flagged by Analyzer 0 % (0-5); Neutrophil # 9.53 X10^3/uL (2.7-7.7); Neutrophil % 94.1 % (47-70); POSITIVE DIFFERENTIAL YES; Platelet Count 164 K/mm3 (150-450); RBC Distribution Width CV 15.9 % (11.6-14.6); RBC Distribution Width SD 53.5 fl (35.1-43.9); Red Blood Count 4.54 M/mm3 (4.6-6.2); White Blood Count 10.1 K/mm3 (4.4-11.0)
[2022-11-20 06:48] LABS: Differential Indicated SCAN CRITERIA MET
[2022-11-20 06:52] LABS: International Normalized Ratio 4.6; Prothrombin Time (Protime)PT. 44.4 SECONDS (11.7-14.9)
[2022-11-20 07:02] LABS: Differential Comment SCANNED
[2022-11-20 07:11] LABS: ALB/GLOB Ratio 0.6 RATIO (0.9-2.4); AST(SGOT) 39 U/L (15-37); Alanine Aminotransfer ALT/SGPT 23 U/L (16-61); Albumin, Serum 2.5 g/dL (3.2-5.0); Alkaline Phosphatase 172 U/L (45-117); Anion Gap 2 (5-15); BUN 51 mg/dL (7-18); BUN/Creat Ratio 46.4 RATIO (10-20); Calcium,Total 10.7 mg/dL (8.5-10.1); Chloride 105 mmol/L (98-107); EST Glomerular Filtration Rate 67 mL/min (>60); Est Glom Filt Rate - Afr Amer 81 mL/min (>60); Estimated Creatinine Clearance 51.93 ml/min; Globulin 4.1 g/dL (2.2-4.2); Glucose 122 mg/dL (74-106); Protein, Total 6.6 g/dL (6.4-8.2); Sodium Level 142 mmol/L (136-145)
[2022-11-20] MEDS: Metoprolol Tartrate 5 MG/5 ML Vial IV (09:07)
--- NOTE | 2022-11-20 10:17 | CASEMGMT ---
CARLO called patient's step son per physician's request to arrange for both step son and patient's come to [facility] for a goals of care conversation. CARLO called patient's step son Prem about bringing patient's to [facility] for discussion with physician. Prem put patient's on speaker phone and patient's said she will try. They will be here between 11 and 11:30. CARLO notified Dr Law and Dr Pacheco. Meghna Fairbanks [employer] N[employer]SE [employer]
--- NOTE | 2022-11-20 10:20 | CON.PCM.CC_ITS ---
Assessment & Plan Assessment/Plan (1) Acute hypercapnic respiratory failure: (2) CHF (congestive heart failure): (3) Atrial fibrillation with rapid ventricular response: (4) Lung nodule: PLAN: Plan RECOMMENDATIONS: 1. Hypercalcemia management per nephrology 2. Wean BiPAP FiO2 to keep saturations between 90 and 94% 3. Arrange family meeting to discuss goals of therapy 4. Consider aggressive rate control if wishes to remain aggressive 5. Avoid benzodiazepines. Would benefit from delirium protocol IMPRESSIONS: 1. Acute combined respiratory failure ABG showing both hypoxia and hypercapnia. Patient has been placed on BiPAP and appears to be tolerating this well. However, this is likely only temporizing. Patient may have an element of flash pulmonary edema secondary to A-fib with RVR in the setting of diastolic dysfunction. Patient does have significant CO2 retention at baseline, but has no PFTs for evaluation of COPD at baseline. Patient would benefit to keep saturations between 90 and 94% to avoid further worsening in hypercarbia. Long-term prognosis is extremely guarded. 2. 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 Patient is refusing biopsy and work-up as an outpatient. This will make patient highly resistant to treatment for hypercalcemia. We will attempt to discuss with the family about goals of therapy. Patient would likely benefit from hospice measures. High clinical suspicion for malignancy. 3. Acute metabolic encephalopathy/delirium Patient with significant electrolyte abnormalities and hypercarbia. Patient also has advanced age and potential malignancy leading to risk factors for delirium. However, patient appears to be at his baseline when discussing with Dr. Manning about a lack of work-up for lung nodules. We will attempt to touch base with the family for clarification of goals of therapy 4. History of colon cancer/hypothyroidism/CAD status post CABG/compression fracture/A-fib with RVR in the setting of diastolic dysfunction Complicates care, management, recovery and prognosis. Patient would benefit from rate control, but it is unclear how long this would be helpful. Patient's overall prognosis is extremely guarded at this time. Addendum 12:33 PM: Just finished a conversation with the patient's family including his , stepson and niece. Conveyed to them that I believe that this hypercalcemia secondary to a paraneoplastic syndrome, adding further evidence that the patient has probable undiagnosed lung cancer. Patient was able to add to the conver sation stating that he did not want to be aggressive with his lung cancer and only wishes to be comfortable. Patient annika provides most of the care in the home and states she likely would not be able to care for both of them. After extensive discussion, the patient has agreed to a comfort care only CODE STATUS and would like to speak with the professor of biological sciences and hospice as soon as possible. This was conveyed to the hospitalist, social worker masters and bedside nurse. Orders have been placed accordingly. It is okay for the patient to use BiPAP for comfort HPI Consult Data Date of Consult: 11/20/22 HPI Narrative Reason for Consultation: Respiratory failure HPI Narrative: JOSE CHAWLA is an 87 M, with past medical history listed below, who presented to [facility] on 11/11/2022 secondary to back pain and weakness for 2 weeks. Patient stated that this had been constant and worse with movement. 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 Patient reportedly did not have any urinary complaints, bowel or bladder incontinence or focal weakness at that time. Laboratory data showed a white blood cell count of 9.3, hemoglobin of 11.9 and an INR of 3.6. Chemistries were significant for a calcium of 10.9 with an albumin of 2.9. A CT of the abdomen and pelvis had shown a large mass in the left lower lobe with multiple gallstones and a compression fracture of the L4 vertebrae. Patient was admitted to the hospital and treated for hypercalcemia. Since being admitted to the hospital, patient's calcium is improved. Nephrology has been helping with management, but patient's respiratory status has gotten progressively worse. There has been discussion with the patient and family about possible hospice measures, but this has been refused at this point. A pulmonary consult was obtained for prognostication. Patient is not able to provide much additional history at this time. Patient does see Dr. Manning in our office and was notified of the lung mass. Patient is stated that given his age and goals he did not want any work-up at that time. Patient does have a history of chronic A-fib with anticoagulation and coronary artery disease. Patient does not appear to have problems with hypercalcemia previously. Family was not at the bedside during my evaluation, but social work is going to try and do a family meeting. Unable to obtain a review of systems at this time as the patient is currently on BiPAP therapy. Patient states he is not short of breath or in pain while on BiPAP. However, patient would like the BiPAP removed if possible. [facility]LY [facility] Medical History Abnormality of gait Acid reflux Allergic rhinitis Anemia Anemia requiring transfusions Atherosclerosis of coronary artery of [place] heart without angina pectoris Atrial fibrillation with rapid ventricular response Blood clots in stool Cancer Carotid artery disease Colon cancer COPD (chronic obstructive pulmonary disease) Essential hypertension Former smoker GERD (gastroesophageal reflux disease) GI bleed (04/25/21) Hyperbilirubinemia Hyperlipidemia Hypothyroidism (acquired) Iron deficiency anemia Nonrheumatic mitral (valve) insufficiency Nonsustained paroxysmal supraventricular tachycardia Obesity Paroxysmal atrial fibrillation Personal history of colonic polyps Prostatic hypertrophy Pulmonary embolism Respiratory failure Urinary retention Home Medications atorvastatin 80 mg tablet (Lipitor) 80 mg PO DAILY CHOLESTEROL 07/14/17 [History Last Taken 11/10/22] ascorbic acid (vitamin C) 500 mg tablet 1,000 mg PO BID SUPPLEMENT 02/15/20 [History Last Taken 11/10/22] levothyroxine 125 mcg tablet 125 mcg PO DAILY THYROID 04/25/21 [History Last Taken 11/10/22] furosemide 40 mg tablet 40 mg PO DAILY FLUID 10/01/22 [History Last Taken 11/10/22] metoprolol succinate 100 mg tablet,extended release 24 hr 100 mg PO DAILY BLOOD PRESSURE 10/01/22 [History Last Taken 11/10/22] omega-3 fatty acids 500 mg capsule 500 mg PO DAILY SUPPLEMENT 10/01/22 [History Last Taken 11/10/22] potassium chloride 20 mEq tablet,extended release 20 meq PO DAILY SUPPLEMENT 10/01/22 [History Last Taken 11/10/22] albuterol sulfate 90 mcg/actuation aerosol inhaler 1 puff inhalation Q6H PRN shortness of breath or wheezing #8.5 grams 10/03/22 [Rx Last Taken 11/10/22] warfarin 5 mg tablet (Jantoven) 5 mg PO SuMoWeThFrSa@1700 #30 tabs 10/03/22 [Rx Last Taken 11/10/22] warfarin 7.5 mg tablet (Jantoven) 7.5 mg PO Tu@1700 #0 tabs 10/03/22 [Rx Last Taken 11/10/22] metolazone 2.5 mg tablet See Rx Instructions PO Q OTHER DAY 10/18/22 [History Last Taken 11/10/22] Allergy/AdvReac Type Severity Reaction Status Date / Time adhesive tape Allergy Intermediate dermatitis Verified 11/11/22 08:47 Family History Father , of pneumonia Pneumonia Mother , of CAD CAD (coronary artery disease) Arthritis Sister , Cause unknown Rheumatoid arthritis Oral cancer Sister Arthritis Sister No problems noted. Sister No problems noted. Surgical History H/O coronary artery bypass surgery (12/25/18) History of bladder surgery History of cardioversion (05/31/19) History of colectomy History of colonoscopy (09/30/17) History of esophagogastroduodenoscopy (EGD) (~04/2021) History of mitral valve repair (12/25/18) History of transurethral resection of prostate Status post mitral valve repair (12/25/18) Social History household members: spouse Smoking Status: Former smoker quit date: 06/04/96 pack-years: 40 how long ago did patient quit smokin years ago alcohol intake: never substance use type: does not use caffeine: Yes Type: coffee Number of servings: 2 ROS ROS Narrative See HPI Physical Exam Const alert Constitutional Narrative: Waxing and waning interaction. Good BiPAP synchrony. HEENT normocephalic and head/scalp atraumatic HEENT Narrative: Exam limited by BiPAP Eyes PERRL, EOMs intact bilaterally and conjunctivae normal Eyes Narrative: Slight scleral injection noted Neck full ROM Neck Narrative: JVD noted General: trachea midline Resp Auscultation: diminished lung sounds; Negative for rales, rhonchi or wheezes Cardio S1 normal heart sound, S2 normal heart sound, no rub and no gallops Cardio Narrative: Difficult to assess for murmurs given BiPAP noise Rate: tachycardic Rhythm: abnormal rhythm irregularly irregular GI normal to inspection, nondistended, normoactive bowel sounds Extremity no clubbing, cyanosis or edema Extremity Narrative: Significant onychomycosis noted Skin Skin Narrative: Dermal atrophy Neuro moves all extremities and no focal motor deficits Psych Mood & Affect: labile affect Medical Records Data Attestation: I reviewed the patient's medical records Medical records narrative: Patient does not have any PFTs available for review. Patient's last echo cardiogram shows an EF of 65% with diastolic dysfunction and pulmonary artery pressures of 45 mmHg. No significant valvular abnormalities are noted. Lab / Micro Data Attestation: I reviewed the patient's lab results. Result Diagrams: 11/20/22 06:16 11/20/22 06:16 Labs: Laboratory Results - last 24 hr 11/19/22 05:50: B-Natriuretic Peptide 174.1 H 11/19/22 15:49: Sodium 143, Potassium 4.7, Chloride 106, Carbon Dioxide 36.0 H, Anion Gap 1 L, BUN 51 H, Creatinine 1.18, Estim Creat Clear Calc 48.41, Est GFR (MDRD) Af Amer 75, Est GFR (MDRD) Non-Af 62, BUN/Creatinine Ratio 43.2 H, Glucose 119 H, Calcium 10.4 H, Total Bilirubin 0.60, AST 42 H, ALT 26, Alkaline Phosphatase 168 H, Total Protein 6.4, Albumin 2.5 L, Globulin 3.9, Albumin/G lobulin Ratio 0.6 L 11/19/22 15:49: Ammonia 16.0 11/19/22 15:49: Lactic Acid 1.5 11/19/22 15:49: Procalcitonin 1.13 H 11/19/22 18:14: Urine Color Yellow, Urine Clarity Clear, Urine pH 6.0, Ur Specific Lyle 1.020, Urine Protein 15 H, Urine Glucose (UA) Normal, Urine Ketones Negative, Urine Occult Blood 10 H, Urine Nitrite Positive H, Urine Bilirubin Negative, Urine Urobilinogen Normal, Ur Leukocyte Esterase 500 H, Urine RBC 0 SEEN, Urine WBC 5-10 SEEN, Ur Squamous Epith Cells 0 SEEN, Calcium Oxalate Crystal 1+, Urine Bacteria 1+, Urine Mucus 0 SEEN 11/20/22 06:16: WBC 10.1, RBC 4.54 L, Hgb 12.4 L, Hct 41.8, MCV 92.1, MCH 27.3, MCHC 29.7 L, RDW Std Deviation 53.5 H, RDW Coeff of Marcelino 15.9 H, Plt Count 164, MPV 12.4 H, Immature Gran % (Auto) 1.000 H, Neut % (Auto) 94.1 H, Lymph % (Auto) 3.1 L, [place] % (Auto) 1.6, Eos % (Auto) 0.0, Baso % (Auto) 0.2, Absolute Neuts (auto) 9.5 H, Absolute Lymphs (auto) 0.31 L, Nucleated RBC % 0, Differential Comment SCANNED 11/20/22 06:16: Sodium 142, Potassium 5.0, Chloride 105, Carbon Dioxide 35.0 H, Anion Gap 2 L, BUN 51 H, Creatinine 1.10, Estim Creat Clear Calc 51.93, Est GFR (MDRD) Af Amer 81, Est GFR (MDRD) Non-Af 67, BUN/Creatinine Ratio 46.4 H, Glucose 122 H, Calcium 10.7 H, Total Bilirubin 0.50, AST 39 H, ALT 23, Alkaline Phosphatase 172 H, Total Protein 6.6, Albumin 2.5 L, Globulin 4.1, Albumin/Globulin Ratio 0.6 L 11/20/22 06:16: PT 44.4 H, INR 4.6 H* Micro: Microbiology 11/19/22 19:30 Nasal Secretion SARS-CoV-2 & FLU Antigen (Rapid) - Final 11/19/22 16:19 Mucosa - Nasopharyngeal Respiratory Panel (PCR) - Final ABG Data ABG results: ABG 11/19/22 10:25 Specimen Type ART Sample Site L Radial pH 7.36 Bicarbonate Actual 34.4 H Total CO2 36 Base Excess 9 H O2 Saturation 89 L ABG pCO2 60.6 H ABG pO2 61 L Jatinder Test Positive O2 Delivery Device Cannula Liter Flow 10.0 Attestation: I personally reviewed and interpreted this ABG as follows: (Partially compensated chronic respiratory acidosis with increased AA gradient) Charges/Coding Visit Charges Inpatient E&M: 59249 Init Hosp L3
[2022-11-20] MEDS: Potassium Chloride Oral Tablet 20 MEQ PO (11:00)
[2022-11-20] MEDS: Atorvastatin Calcium 80 MG Tablet PO (11:01)
[2022-11-20] MEDS: Metoprolol Tartrate 50 MG Tablet 75 MG PO (11:01)
[2022-11-20] MEDS: Cinacalcet HCl 30 MG Tablet PO (11:01)
[2022-11-20] MEDS: Cholecalciferol (Vit D3) 125 MCG CAPSULE (5,000 UNITS) PO (11:02)
[2022-11-20] MEDS: Ascorbic Acid 500 MG Tablet 1000 MG PO (11:02)
--- NOTE | 2022-11-20 13:22 | CASEMGMT ---
Physician spoke with patient, his , and step son about Hospice. They are all in agreement with patient going on Hospice. SW met with patient, his , and step son. SW explained how the process works. SW called Hospice regarding referral and also faxed information. Meghna KNIGHT
--- NOTE | 2022-11-20 13:43 | CASEMGMT ---
Maria C from Hospice called SW and they will meet with patient's and step son today at 230 at their home. Meghna Fairbanks WARRANTY COORDINATOR ANTONIA
--- NOTE | 2022-11-20 13:43 | CHAPLAIN ---
Type of Pastoral Visit _x__ Initial Visit ___ Follow-up Visit ___ On-call Visit ___ General Patient Visit ___ Spiritual Assessment ___ Family Conference ___ Bereavement ___ Rapid Response ___ Code Blue ___ Other (describe below) Pastoral Care Referral From ___ Patient _x__ Family ___ Nurse _x__ Physician _x__ Run Boat Operator ___ Milieu Coordinator ___ Other (describe below) Sacrament/Intervention _x__ Active listening ___ Anointing ___ Restoration ___ Bereavement ___ Communion ___ Dorothy exploration ___ ___ Life review _x__ Prayer ___ Reconciliation ___ Sacrament of Sick _x__ Supportive presence ___ Wedding ___ Other (describe below) Pastoral Comments hospice care has been discussed and agreed upon by patient and family per and CARLO; family is agreeable to have support given by this catalyst supervisor; met with patient, spouse, and stepson in the room and then afterward with the spouse and stepson again in the hallway; pt is addressed personally; pt nods or shakes his head and answers briefly to questions; pt not ready to admit defeat but family states that agreement made for hospice care now; spouse is tearful; pt did not answer questions about his feelings and if he is afraid or angry; pt just looks at instead of answering questions; pt did agree that a prayer would be good at this time; offer of ongoing support and presence given as desired;
--- NOTE | 2022-11-20 15:13 | CASEMGMT ---
CARLO spoke with Maria C at Hospice. When the shift superintendent Viktoria is done meeting with the family she will come to [facility] to evaluate the patient. Maria C did say that the Hospice physician has looked at patient's information and he feels patient is appropriate. CARLO updated RN, supervisor in charge and physician. Meghna Fairbanks SENIOR ACCOUNTANT CPA ANTONIA
--- NOTE | 2022-11-20 16:32 | PCM.DC ---
Discharge Instructions Diet Discharge Diet: No restrictions Follow Up Care Test Results: Test results from this visit will be discussed in further detail at your follow-up appointment, if applicable. Discharge Plan Admission Admit Date/Time: 11/11/22 13:08 Primary Reason for Your Visit: Weakness, shortness of breath Attending Provider: Batool Pacheco Primary Care Provider: Kevin Boogie Consulting Providers: Prem Brooks ; Anabel Glover ; Lupis Graf ; Jazmine Olivas CONSULTING HR PROFESSIONAL ; Kevin Hardy ; Bob Bai ; Prakash Arevalo ; Wilner Law ; Marcos Manning ; Geremias Knott ; Cruz Mabry ; Trinidad Castanon CONSULTING HR PROFESSIONAL Instructions Patient Instructions: Hospice: As Nears Discharge Orders/Prescriptions Prescriptions: New cinacalcet 30 mg Tablet 30 mg PO DAILYCM 30 Days Qty: 0 0RF Continued levothyroxine 125 mcg tablet 125 mcg PO DAILY furosemide 40 mg tablet 40 mg PO DAILY metoprolol succinate 100 mg tablet extended release 24 hr 100 mg PO DAILY potassium chloride 20 mEq tablet extended release 20 meq PO DAILY Discontinued atorvastatin [Lipitor] 80 mg tablet 80 mg PO DAILY metolazone 2.5 mg tablet See Rx Instructions PO Q OTHER DAY Rx Instructions: Patient unsure of strength and frequency. Supposed to fruit picker from PCP office today. orally every other day; omega-3 fatty acids 500 mg Capsule 500 mg PO DAILY warfarin [Juntoven] 7.5 mg Tablet 7.5 mg PO Tu@1700 Qty: 0 0RF Protocol: Dose Management Condition: Friday Dose/Route: 5 mg Instruction: 1 x 5 mg tablet Condition: Friday Dose/Route: 5 mg Instruction: 1 x 5 mg tablet Condition: Friday Dose/Route: 7.5 mg Instruction: 1 x 7.5 mg tablet Condition: Friday Dose/Route: 5 mg Instruction: 1 x 5 mg tablet Condition: Dose/Route: 5 mg Instruction: 1 x 5 mg tablet Condition: Friday Dose/Route: 5 mg Instruction: 1 x 5 mg tablet Condition: Friday Dose/Route: 5 mg Instruction: 1 x 5 mg tablet Protocol Text: Adjustment Start Date: Friday10/29/22 INR Value: 2.1 INR Date: 10/29/22 Recheck Date: 11/26/22 warfarin [Jantoven] 5 mg Tablet 5 mg PO Elizabeth@1700 Qty: 30 0RF Protocol: Dose Management Condition: Friday Dose/Route: 5 mg Instruction: 1 x 5 mg tablet Condition: Friday Dose/Route: 5 mg Instruction: 1 x 5 mg tablet Condition: Friday Dose/Route: 7.5 mg Instruction: 1 x 7.5 mg tablet Condition: Friday Dose/Route: 5 mg Instruction: 1 x 5 mg tablet Condition: Dose/Route: 5 mg Instruction: 1 x 5 mg tablet Condition: Friday Dose/Route: 5 mg Instruction: 1 x 5 mg tablet Condition: Friday Dose/Route: 5 mg Instruction: 1 x 5 mg tablet Protocol Text: Adjustment Start Date: Friday10/29/22 INR Value: 2.1 INR Date: 10/29/22 Recheck Date: 11/26/22 albuterol sulfate 90 mcg/actuation HFA aerosol inhaler 1 puff inhalation Q6H PRN (Reason: shortness of breath or wheezing) Qty: 8.5 0RF ascorbic acid (vitamin C) 500 mg tablet 1,000 mg PO BID Referrals / Follow Up: Kevin Boogie MD [Primary Care Provider] - Within 1 Week Disposition Disposition (needs filled in before D/C Order can be placed): Hospice in Medical Facility
--- NOTE | 2022-11-20 16:37 | DS.PCM_ITS ---
Providers Date of Admission: 11/11/22 Date of Discharge: 11/20/22 Primary Care Physician: Dr. Kevin Boogie MD Consultations 11/12/22 14:52 Consult: Hospice / Palliative Care Routine Consulting Provider: [facility] Reason for Consult: palliative care EMERGENT Consult: No Notified: Yes Date Notified: 11/12/22 Time Notified: 15:19 Method of Notification: cm 11/17/22 12:50 Consult: Nephrology Routine Consulting Provider: Bob Bai Reason for Consult: Hypercalcemia, subacute POSSIBLE primary PTH EMERGENT Consult: No MD Notified: Yes Date Notified: 11/17/22 Time Notified: 12:50 Method of Notification: Verbal 11/20/22 09:28 Consult: Scientific Programmer / Pulmonary Medicine Routine Consulting Provider: Pulmonary Medicine imelda [place] Reason for Consult: Worsening respiratory status EMERGENT Consult: No Notified: Yes Date Notified: 11/20/22 Time Notified: 09:30 Method of Notification: Text 11/20/22 12:37 Consult: Hospice / Palliative Care Routine Consulting Provider: [facility] Reason for Consult: End-of-life EMERGENT Consult: No Notified: Yes Date Notified: 11/20/22 Time Notified: 15:28 Method of Notification: per social work instructor Reason For Visit: Weakness, shortness of breath Diagnosis Discharge Diagnosis (1) Hypercalcemia: Status: Acute Code(s): E83.52 - Hypercalcemia (2) Lung nodule: Status: Acute Code(s): R91.1 - Solitary pulmonary nodule (3) Heart failure with preserved ejection fraction: Status: Acute Code(s): I50.30 - Unspecified diastolic (congestive) heart failure Plan #Acute exacerbation of heart failure with preserved ejection fraction with acute hypoxic hypercapnic respiratory failure #Hypercalcemia- -Suspect due to primary hyperparathyroidism versus malignancy #Solitary pulmonary nodule -With some additional mediastinal lymphadenopathy #Chronic A-fib with RVR #Generalized weakness and debility/lower back pain #Acute metabolic encephalopathy -Secondary to hypercapnia and hypercalcemia #History of colon cancer status post colectomy -Supportive care #Hypothyroidism #Coronary artery disease status post CABG Medications at Discharge Home Medications levothyroxine 125 mcg tablet 125 mcg PO DAILY THYROID 04/25/21 furosemide 40 mg tablet 40 mg PO DAILY FLUID 10/01/22 metoprolol succinate 100 mg tablet,extended release 24 hr 100 mg PO DAILY BLOOD PRESSURE 10/01/22 potassium chloride 20 mEq tablet,extended release 20 meq PO DAILY SUPPLEMENT 10/01/22 cinacalcet 30 mg tablet 30 mg PO DAILYCM 30 days #0 tabs 11/20/22 Hospital Course Summary of Care Provided Minutes Spent on Discharge: 40 Hospital Course: 87-year-old male history of heart failure with preserved ejection fraction, suspected COPD, A-fib with RVR, colon cancer status post colectomy, hypothyroidism, CAD status post CABG who presented to [facility] 11/13/2022 with weakness and shortness of breath. He was felt to be fluid overloaded and started on IV Lasix twice daily and also noted to have a lung nodule. This had been seen recently by Dr. Manning and discussed on October 17 and he was had a PET scan which she had not had done. Patient did not want any further evaluation or intervention for this. During his stay he had waxing and waning mental status and was found to have elevated calcium, nephrology consulted and patient started on Sensipar. Patient had tenuous respiratory status which progressively worsened, was started on antibiotics, nebs, steroids but primarily became high flow and BiPAP dependent. Consulted pulmonology, ultimately given patient's clinical/functional status and [facility] Exam Narrative General: Waxing and waning levels of alertness HEENT: Atraumatic, normocephalic Eyes: Anicteric, normal conjunctiva, extraocular movements grossly intact, patient with difficulty following commands with his delirium so did not track completely [id number] but did not appear to have any palsies or irregularities in pupils Neck: Supple Respiratory: Diminished throughout, slight increased respiratory effort Cardiovascular: Irregularly irregular GI: Soft, nontender, nondistended Extremities: Slight lower extremity edema Musculoskeletal: Moving all extremities in bed Neuro: No overt focal neurological deficits, following commands and moves all extremities Skin: No rashes appreciated Psych: Attempts to be cooperative Weight / BMI Weight Weight: 100.868 kg Body Mass Index (BMI) 30.1 ABG / Lab / Microbiology Data Result Diagrams: 11/20/22 06:16 11/20/22 06:16 Laboratory: Laboratory Results - last 24 hr 11/19/22 15:49: Procalcitonin 1.13 H 11/19/22 18:14: Urine Color Yellow, Urine Clarity Clear, Urine pH 6.0, Ur Specific [place] 1.020, Urine Protein 15 H, Urine Glucose (UA) Normal, Urine Ketones Negative, Urine Occult Blood 10 H, Urine Nitrite Positive H, Urine Bi lirubin Negative, Urine Urobilinogen Normal, Ur Leukocyte Esterase 500 H, Urine RBC 0 SEEN, Urine WBC 5-10 SEEN, Ur Squamous Epith Cells 0 SEEN, Calcium Oxalate Crystal 1+, Urine Bacteria 1+, Urine Mucus 0 SEEN 11/20/22 06:16: WBC 10.1, RBC 4.54 L, Hgb 12.4 L, Hct 41.8, MCV 92.1, MCH 27.3, MCHC 29.7 L, RDW Std Deviation 53.5 H, RDW Coeff of Marcelino 15.9 H, Plt Count 164, MPV 12.4 H, Immature Gran % (Auto) 1.000 H, Neut % (Auto) 94.1 H, Lymph % (Auto) 3.1 L, [place] % (Auto) 1.6, Eos % (Auto) 0.0, Baso % (Auto) 0.2, Absolute Neuts (auto) 9.5 H, Absolute Lymphs (auto) 0.31 L, Nucleated RBC % 0, Differential Comment SCANNED 11/20/22 06:16: Sodium 142, Potassium 5.0, Chloride 105, Carbon Dioxide 35.0 H, Anion Gap 2 L, BUN 51 H, Creatinine 1.10, Estim Creat Clear Calc 51.93, Est GFR (MDRD) Af Amer 81, Est GFR (MDRD) Non-Af 67, BUN/Creatinine Ratio 46.4 H, Glucose 122 H, Calcium 10.7 H, Total Bilirubin 0.50, AST 39 H, ALT 23, Alkaline Phosphatase 172 H, Total Protein 6.6, Albumin 2.5 L, Globulin 4.1, Albumin/Globulin Ratio 0.6 L 11/20/22 06:16: PT 44.4 H, INR 4.6 H* Microbiology: Microbiology 11/19/22 18:14 Urine, Random Urine Culture - Preliminary Presumptive E. coli 11/19/22 19:30 Nasal Secretion SARS-CoV-2 & FLU Antigen (Rapid) - Final 11/19/22 16:19 Mucosa - Nasopharyngeal Respiratory Panel (PCR) - Final D/C Instructions Discharge Diet: No restrictions Meaningful Use Info Meaningful Use Diagnoses (Choose all that apply): CHF CHF NILSON/ARB ordered at discharge?: No Reason NILSON/ARB not ordered?: Worsening renal function Documented LVEF (%): 65 Discharge Plan Admission Admit Date/Time: 11/11/22 13:08 Primary Reason for Your Visit: Weakness, shortness of breath Attending Provider: Batool Pacheco Primary Care Provider: Kevin Boogie Consulting Providers: Prem rBooks ; Anabel Glover ; Lupis Graf ; Jazmine Olivas RUBBER MILL OPERATOR ; Kevin Hardy ; Bob Bai ; Prakash Arevalo ; Wilner Law ; Marcos Manning ; Geremias Knott ; Cruz Mabry ; Trinidad Castanon RUBBER MILL OPERATOR Instructions Patient Instructions: Hospice: [facility] Discharge Orders/Prescriptions Prescriptions: New cinacalcet 30 mg Tablet 30 mg PO DAILYCM 30 Days Qty: 0 0RF Continued levothyroxine 125 mcg tablet 125 mcg PO DAILY furosemide 40 mg tablet 40 mg PO DAILY metoprolol succinate 100 mg tablet extended release 24 hr 100 mg PO DAILY potassium chloride 20 mEq tablet extended release 20 meq PO DAILY Discontinued atorvastatin [Lipitor] 80 mg tablet 80 mg PO DAILY metolazone 2.5 mg tablet See Rx Instructions PO Q OTHER DAY Rx Instructions: Patient unsure of strength and frequency. Supposed to curing pickling packer from PCP office today. orally every other day; omega-3 fatty acids 500 mg Capsule 500 mg PO DAILY warfarin [Juntoven] 7.5 mg Tablet 7.5 mg PO Tu@1700 Qty: 0 0RF Protocol: Dose Management Condition: Friday Dose/Route: 5 mg Instruction: 1 x 5 mg tablet Condition: Friday Dose/Route: 5 mg Instruction: 1 x 5 mg tablet Condition: Friday Dose/Route: 7.5 mg Instruction: 1 x 7.5 mg tablet Condition: Friday Dose/Route: 5 mg Instruction: 1 x 5 mg tablet Condition: Dose/Route: 5 mg Instruction: 1 x 5 mg tablet Condition: Friday Dose/Route: 5 mg Instruction: 1 x 5 mg tablet Condition: Friday Dose/Route: 5 mg Instruction: 1 x 5 mg tablet Protocol Text: Adjustment Start Date: Friday10/29/22 INR Value: 2.1 INR Date: 05/30/23 Recheck Date: 11/26/22 warfarin [Juntoven] 5 mg Tablet 5 mg PO Elizabeth@1700 Qty: 30 0RF Protocol: Dose Management Condition: Friday Dose/Route: 5 mg Instruction: 1 x 5 mg tablet Condition: Friday Dose/Route: 5 mg Instruction: 1 x 5 mg tablet Condition: Friday Dose/Route: 7.5 mg Instruction: 1 x 7.5 mg tablet Condition: Friday Dose/Route: 5 mg Instruction: 1 x 5 mg tablet Condition: Dose/Route: 5 mg Instruction: 1 x 5 mg tablet Condition: Friday Dose/Route: 5 mg Instruction: 1 x 5 mg tablet Condition: Friday Dose/Route: 5 mg Instruction: 1 x 5 mg tablet Protocol Text: Adjustment Start Date: Friday10/29/22 INR Value: 2.1 INR Date: 10/29/22 Recheck Date: 11/26/22 albuterol sulfate 90 mcg/actuation HFA aerosol inhaler 1 puff inhalation Q6H PRN (Reason: shortness of breath or wheezing) Qty: 8.5 0RF ascorbic acid (vitamin C) 500 mg tablet 1,000 mg PO BID Referrals / Follow Up: Kevin Boogie MD [Primary Care Provider] - Within 1 Week Disposition Disposition (needs filled in before D/C Order can be placed): Hospice in Medical Facility Charges/Coding Visit Charges Inpatient E&M: 01245 Disch Hosp >30min
== END 2022-11-20 16:42 | disposition hospice, inpatient (51) | DRG 291 ==
LOC: ED 09:15 → MS3 13:05 → PCU 13:29
PROVIDERS: Internal Medicine; Emergency Provider Emergency Medicine; PCP Family Medicine; Visit Provider Internal Medicine
DX: I11.0 Hypertensive heart disease with heart failure (principal); I50.33 Acute on chronic diastolic (congestive) heart failure; J96.01 Acute respiratory failure with hypoxia; G93.41 Metabolic encephalopathy; J96.02 Acute respiratory failure with hypercapnia; C34.90 Malignant neoplasm of unspecified part of unspecified bronchus or lung; M48.56XA Collapsed vertebra, not elsewhere classified, lumbar region, initial encounter for fracture; I48.20 Chronic atrial fibrillation, unspecified; J84.10 Pulmonary fibrosis, unspecified; F03.90 Unspecified dementia, unspecified severity, without behavioral disturbance, psychotic disturbance, mood disturbance, and anxiety; Z79.01 Long term (current) use of anticoagulants; J44.9 Chronic obstructive pulmonary disease, unspecified; E21.0 Primary hyperparathyroidism; E78.5 Hyperlipidemia, unspecified; I25.10 Atherosclerotic heart disease of native coronary artery without angina pectoris; E03.9 Hypothyroidism, unspecified; E83.52 Hypercalcemia; R26.9 Unspecified abnormalities of gait and mobility; R79.1 Abnormal coagulation profile; R59.0 Localized enlarged lymph nodes; G89.29 Other chronic pain; Z66 Do not resuscitate; Z20.822 Contact with and (suspected) exposure to COVID-19; Z79.890 Hormone replacement therapy; Z79.899 Other long term (current) drug therapy; Z87.891 Personal history of nicotine dependence; Z95.1 Presence of aortocoronary bypass graft
CPT/HCPCS: 36415; 36600; 70450; 71045; 71046; 72128; 72131; 74176; 80048; 80053; 80076; 81001; 82140; 82248; 82306; 82803; 83605; 83690; 83735; 83880; 83970; 84100; 84145; 84439; 84443; 84484; 85025; 85610; 87040; 87086; 87088; 87186; 87428; 87633; 93005; 93306; 94002; 94003; 94640; 94762; 97162; 97166; 97530; 97535; 99252; 99285; J7030; J7120; Q9957; A4216; C8929; G0463; J1940